=== PATIENT | male | born 1945 | race Caucasian/White ===

== ENCOUNTER → 2017-07-11 | Outpatient (CLI) | payer MEDICARE, BC ==
[2015-12-21 10:31] VITALS: BP 102/52
[~2017-07-11] MED LIST: AMOX1TAB11 PO; ASPI-39 PO; ASPI325T11 PO; CARV25TA2 PO; CARV3.122 PO; CETI10CA PO; CLOP75TA PO; FURO40TA4 PO; GABA-586 PO; HYDR-2762 PO; LISI-334 PO; LISI10TA2 PO; LOVA40TA2 PO; PANT40TA5 PO; PRED-220 PO; PRED5TAB PO; RANI150T6 PO; hydrocodone
--- NOTE | 2017-07-11 11:18 | CARD ---
APPROVED REPORT EXAM: Two-dimensional and M-mode echocardiogram with Doppler and color Doppler. Other Information Quality : Average Rhythm : Pacemaker INDICATION Cardiomyopathy Congestive Heart Failure 2D DIMENSIONS RVDd3.1 (2.9-3.5cm)Left Atrium(2D)5.0 (1.6-4.0cm) IVSd0.9 (0.7-1.1cm)Aortic Root(2D)3.3 (2.0-3.7cm) LVDd7.0 (3.9-5.9cm)LVOT Diameter2.3 (1.8-2.4cm) PWd0.9 (0.7-1.1cm)LVDs5.9 (2.5-4.0cm) SV85.2 mlLVEF(%)23.1 (>50%) Aortic Valve AoV Peak Juan.87.3cm/sAoV VTI17.9cm AO Peak GR.3.0mmHgLVOT Peak Juan.76.6cm/s LVOT VTI 15.71cmAO Mean GR.2mmHg HORACIO (VMAX)3.03xc3BUJ (VTI)3.58cm2 Mitral Valve MV E Hgtifkcf18.5cm/sMV DECEL UKNP735bc MV A Jpvpcpux93.7cm/sMV KDF45nz E/A Ratio0.9MV A Hmzzmwtf149hd MVA (PHT)3.10cm2 TDI E/Lateral E'16.0E/Medial E'17.5 Pulmonary Valve PV Peak Sreeotjp34.9cm/sPV Peak Grad.3mmHg RVOT VTI12.7cm Tricuspid Valve TR P. Anhryknf158kw/sRAP NXCGTGAR3qjIp TR Peak Gr.17hvGzUGYR59atLi Pulmonary Vein S1 Ycecthxy04.8cm/sD2 Iirtrwvy48.8cm/s LEFT VENTRICLE The Left Ventricle is moderately dilated. There is normal left ventricular wall thickness. Left ventr icle systolic function is severely impaired. The Ejection Fraction is 20-25%. Severe global hypokines is with predominant inferior wall hypokinesis. Tissue Doppler imaging reveals moderate left ventricul ar diastolic dysfunction. There is no ventricular septal defect visualized. RIGHT VENTRICLE The right ventricle is normal size. The right ventricular systolic function is normal. There is a pac emaker/ ICD lead seen in the right ventricle and atrium. ATRIA The left atrium is severely dilated. The right atrium size is normal. The interatrial septum is intac t with no evidence for an atrial septal defect or patent foramen ovale as noted on 2-D or Doppler erin ging. AORTIC VALVE Not well visualized. Doppler and Color Flow revealed no significant aortic regurgitation. There is no significant aortic valvular stenosis. MITRAL VALVE The mitral valve leaflets are thickened. There is no mitral valve stenosis. Doppler and Color Flow re vealed mild mitral regurgitation. TRICUSPID VALVE The tricuspid valve is normal in structure and function. Doppler and Color Flow revealed mild tricusp id regurgitation. The PA pressure was estimated at 33 mmHg. There is no tricuspid valve stenosis. PULMONIC VALVE Not well visualized. Doppler and Color Flow revealed no pulmonic valvular regurgitation. There is no pulmonic valvular stenosis. GREAT VESSELS The aortic root is normal in size. Normal pulmonary venous flow (Doppler). The IVC is normal in size and collapses >50% with inspiration. PERICARDIAL EFFUSION There is no evidence of significant pericardial effusion. Critical Notification Critical Value: No <Conclusion> The Left Ventricle is moderately dilated. Left ventricle systolic function is severely impaired. The Ejection Fraction is 20-25%. Severe global hypokinesis with predominant inferior wall hypokinesis. There is a pacemaker/ ICD lead seen in the right ventricle and atrium.
== END | disposition home or self-care (01) ==
LOC: ECHO 07:32
PROVIDERS: ATTEND Internal Medicine Cardiovascular Disease
DX: I08.1 Rheumatic disorders of both mitral and tricuspid valves (principal); I50.22 Chronic systolic (congestive) heart failure; Z95.0 Presence of cardiac pacemaker
CPT/HCPCS: 93306

== ENCOUNTER → 2017-10-12 | Outpatient (CLI) | payer MEDICARE, BC ==
[2015-12-21 10:31] VITALS: BP 102/52
--- NOTE | 2017-10-12 13:22 | RAD ---
Examination: CT chest without contrast History: History of pulmonary infiltrate Comparison: 12/16/2015 Technique: Axial CT images of the chest were performed without contrast. Coronal and sagittal reformats are performed PQRS Compliance Statement: One or more of the following individualized dose reduction techniques were utilized for this examination: 1. Automated exposure control 2. Adjustment of the mA and/or kV according to patient size 3. Use of iterative reconstruction technique Findings: The visualized thyroid gland grossly appears unremarkable. The central airways are patent. Mild cardiomegaly identified. Diffuse coronary artery calcifications identified. Few prominent mediastinal lymph nodes are identified with the largest measuring 2.1 cm in the pretracheal region. Severe emphysematous is identified in the bilateral lungs. Large bulla identified in the apical lungs right greater than left, similar to prior exam. Interval decrease in patchy peripheral prominent interstitial lung markings with some residual reticular interstitial lung markings identified in the left lingula. There is a new 9 mm nodule identified along the right minor fissure. The noncontrasted liver, left adrenal grossly appears unremarkable. There is a 1.6 cm nodule identified in the right adrenal gland measuring 16 Hounsfield units grossly similar to prior exam. Moderate degenerative changes thoracic spine. Impression: 1. Severe emphysematous changes bilateral lungs with large bullae identified in the right and left apical lungs again identified. 2. 9 mm nodule identified in the right lung along the right minor fissure is new compared to prior exam. Follow-up per Fleischner sensitive guidelines with a follow-up CT in 3 months. 3. Improved reticular interstitial lung markings identified in the bilateral lungs. 4. 1.6 cm right adrenal nodule similar to prior exam.
== END | disposition home or self-care (01) ==
LOC: CT 15:39
PROVIDERS: ATTEND Internal Medicine Pulmonary Disease
DX: J43.8 Other emphysema (principal); I51.7 Cardiomegaly; I25.10 Atherosclerotic heart disease of native coronary artery without angina pectoris; R23.8 Other skin changes
CPT/HCPCS: 71250

== ENCOUNTER → 2018-02-05 | Outpatient (CLI) | payer MEDICARE, BC | END | disposition home or self-care (01) | LOC: CT 10:42 | DX: R91.1 Solitary pulmonary nodule (principal); I70.8 Atherosclerosis of other arteries | CPT/HCPCS: 71250 ==

== ENCOUNTER 2018-07-07 18:40 | Inpatient (IN) | payer MEDICARE, BC ==
[~2018-07-07] VITALS: Ht 170.2 cm; Wt 96.7 kg
[~2018-07-07 18:40] MED LIST changes: +RANI150T21 PO; -RANI150T6 PO
[2018-07-07] MEDS ORDERED: methylPREDNISolone SOD SUCC PF 125 MG/2 ML VIAL. IV ONE (19:15)
[2018-07-07] MEDS ORDERED: IV NORMAL SALINE 1000ML BAG 1,000 ML IV ONE (19:15)
[2018-07-07] MEDS ORDERED: IPRATRPIUM/ALBUTEROL 0.5/2.5MG 3 ML NEBU. NEB ONE (19:15)
[2018-07-07 19:19] LABS: BASO % 0 % (0-3); EOS % 0 % (0-3); HEMATOCRIT 37.2 % (39.0-53.0); HEMOGLOBIN 12.3 g/dL (13.0-17.5); LYMPH # 0.5 x10^3/uL (1.0-4.8); LYMPH % 5 % (24-48); MEAN CORPUSCULAR HEMOGLOBIN 31 pg (25-35); MEAN CORPUSCULAR HGB CONC 33 g/dL (31-37); MEAN CORPUSCULAR VOLUME 93 fL (79-100); MONO # 0.9 x10^3/uL (0.0-1.1); MONO % 9 % (0-9); NEUT # 8.7 x10^3uL (1.8-7.7); NEUT % 86 % (31-73); PLATELET COUNT 142 x10^3/uL (140-400); RED BLOOD COUNT 4.01 x10^6/uL (4.30-5.70); RED CELL DISTRIBUTION WIDTH 14.8 % (11.5-14.5); WHITE BLOOD COUNT 10.2 x10^3/uL (4.0-11.0)
[2018-07-07 19:33] LABS: CALCIUM 8.3 mg/dL (8.5-10.1); CREATININE 1.3 mg/dL (0.7-1.3); POTASSIUM 4.1 mmol/L (3.5-5.1)
[2018-07-07 19:38] LABS: % BANDS 27 % (0-9); % LYMPHS 8 % (24-48); % MONOS 8 % (0-10); % SEGS 57 % (35-66)
[2018-07-07 19:39] LABS: ALBUMIN 3.2 g/dL (3.4-5.0); ALBUMIN/GLOBULIN RATIO 0.8 (1.0-1.7); TOTAL PROTEIN 7.3 g/dL (6.4-8.2)
[2018-07-07 19:42] LABS: PLT ESTIMATE ADEQUATE (ADEQUATE); TOXIC GRANULATION SLIGHT
[2018-07-07 20:31] LABS: INFLUENZA A PATIENT NEGATIVE (NEGATIVE); INFLUENZA B PATIENT NEGATIVE (NEGATIVE)
--- NOTE | 2018-07-07 20:33 | RAD ---
EXAM: CHEST 1 VIEW History: Cough, shortness of breath COMPARISON: 12/19/2015 TECHNIQUE: Single portable radiograph of the chest FINDINGS: Low lung volumes and technique accentuates heart size and pulmonary vascularity. Mild cardiomegaly. Left-sided cardiac pacer AICD is identified. Severe emphysematous changes identified in the lungs with the probable large bleb/emphysematous bulla identified in the right upper lobe of the lung. Mild prominent appearing interstitial lung markings similar to prior exam. IMPRESSION: 1. Severe emphysematous changes identified in the lungs. 2. Cardiomegaly with mild prominent appearing bilateral markings likely chronic interstitial changes or congestive changes. Electronically signed by: Carmelo Gupta MD (07/07/2018 8:30 PM) [facility]
--- NOTE | 2018-07-07 20:37 | PHYS DOC ---
Past Medical History Past Medical History: Arrhythmia, CAD, COPD, High Cholesterol Additional Past Medical Histor: shingles Past Surgical History: Coronary Bypass Surgery, Pacemaker Additional Past Surgical Histo: pacemaker Alcohol Use: None Drug Use: None Adult General Chief Complaint Chief Complaint: SHORTNESS OF BREATH HPI HPI 72-year-old male with end-stage COPD and multiple other medical problems presents with several day history of progressive shortness of breath, dyspnea on exertion and a productive cough. He has had some subjective fevers at home. He denies any hemoptysis. He states he feel like he has a sinus infection and that he doesn't want to be treated with Z-Kenrick. He states that just never works. He denies any chest pain. He states the cough has been productive of yellow phlegm. He has medication for his COPD at home but this has not been working.[] Review of Systems Review of Systems Constitutional: Denies fever or chills [] Eyes: Denies change in visual acuity, redness, or eye pain [] HENT: Denies nasal congestion or sore throat [] Respiratory: Per history of present illness[] Cardiovascular: No additional information not addressed in HPI [] GI: Denies abdominal pain, nausea, vomiting, bloody stools or diarrhea [] : Denies dysuria or hematuria [] Musculoskeletal: Denies back pain or joint pain [] Integument: Denies rash or skin lesions [] Neurologic: Denies headache, focal weakness or sensory changes [] Endocrine: Denies polyuria or polydipsia [] All other systems were reviewed and found to be within normal limits, except as documented in this note. Current Medications Current Medications Current Medications Medications (Trade) Dose Ordered Sig/Minerva Start Time Stop Time Status Last Admin Dose Admin Acetaminophen (Tylenol) 650 mg PRN Q4HRS PRN 07/07/18 20:45 07/08/18 20:44 UNV Albuterol/ Ipratropium (Duoneb) 3 ml RTQID 07/08/18 08:00 07/09/18 07:59 UNV Furosemide (Lasix) 80 mg 1X ONCE 07/07/18 21:00 07/07/18 21:01 Levofloxacin/ Dextrose 150 ml @ 100 mls/hr 1X ONCE 07/07/18 21:00 07/07/18 22:29 Methylprednisolone Sodium Succinate (SOLU-Medrol 125MG VIAL) 125 mg 1X ONCE 07/07/18 19:15 07/07/18 19:16 DC 07/07/18 19:45 125 MG Sodium Chloride 1,000 ml @ 1,000 mls/hr 1X ONCE 07/07/18 19:15 07/07/18 20:14 DC 07/07/18 19:45 1,000 MLS/HR Allergies Allergies Allergies Coded Allergies Type Severity Reaction Last Updated Verified No Known Drug Allergies 12/21/13 No Physical Exam Physical Exam Constitutional: Elderly, acute on chronically ill-appearing male. [] HENT: Normocephalic, atraumatic, bilateral external ears normal, oropharynx moist, no oral exudates, nose normal. [] Eyes: PERRLA, EOMI, conjunctiva normal, no discharge. [] Neck: Normal range of motion, no tenderness, supple, no stridor. [] Cardiovascular:Heart rate regular rhythm, no murmur [] Lungs & Thorax: Scattered wheezes throughout both lungs bibasilar rales[] Abdomen: Bowel sounds normal, soft, no tenderness, no masses, no pulsatile masses. [] Skin: Warm, dry, no erythema, no rash. [] Back: No tenderness, no CVA tenderness. [] Extremities: No tenderness, no cyanosis, no clubbing, ROM intact, no edema. [] Neurologic: Alert and oriented X 3, normal motor function, normal sensory function, no focal deficits noted. [] Psychologic: Depressed affect Current Patient Data Vital Signs Vital Signs Date Time Temp Pulse Resp B/P (MAP) Pulse Ox O2 Delivery O2 Flow Rate FiO2 07/07/18 19:23 88 Nasal Cannula 3.0 07/07/18 19:00 98.6 77 22 136/64 (88) 98.6 Lab Values Laboratory Tests Test 07/07/18 19:05 07/07/18 20:00 White Blood Count 10.2 x10^3/uL (4.0-11.0) Red Blood Count 4.01 x10^6/uL (4.30-5.70) L Hemoglobin 12.3 g/dL (13.0-17.5) L Hematocrit 37.2 % (39.0-53.0) L Mean Corpuscular Volume 93 fL (79-100) Mean Corpuscular Hemoglobin 31 pg (25-35) Mean Corpuscular Hemoglobin Concent 33 g/dL (31-37) Red Cell Distribution Width 14.8 % (11.5-14.5) H Platelet Count 142 x10^3/uL (140-400) Neutrophils (%) (Auto) 86 % (31-73) H Lymphocytes (%) (Auto) 5 % (24-48) L Monocytes (%) (Auto) 9 % (0-9) Eosinophils (%) (Auto) 0 % (0-3) Basophils (%) (Auto) 0 % (0-3) Neutrophils # (Auto) 8.7 x10^3uL (1.8-7.7) H Lymphocytes # (Auto) 0.5 x10^3/uL (1.0-4.8) L Monocytes # (Auto) 0.9 x10^3/uL (0.0-1.1) Eosinophils # (Auto) 0.0 x10^3/uL (0.0-0.7) Basophils # (Auto) 0.0 x10^3/uL (0.0-0.2) Segmented Neutrophils % 57 % (35-66) Band Neutrophils % 27 % (0-9) H Lymphocytes % 8 % (24-48) L Monocytes % 8 % (0-10) Toxic Granulation Slight Platelet Estimate Adequate (ADEQUATE) Sodium Level 136 mmol/L (136-145) Potassium Level 4.1 mmol/L (3.5-5.1) Chloride Level 101 mmol/L (98-107) Carbon Dioxide Level 34 mmol/L (21-32) H Anion Gap 1 (6-14) L Blood Urea Nitrogen 22 mg/dL (8-26) Creatinine 1.3 mg/dL (0.7-1.3) Estimated GFR (Cockcroft-Gault) 54.0 BUN/Creatinine Ratio 17 (6-20) Glucose Level 133 mg/dL (70-99) H Lactic Acid Level 1.7 mmol/L (0.4-2.0) Calcium Level 8.3 mg/dL (8.5-10.1) L Total Bilirubin 1.0 mg/dL (0.2-1.0) Aspartate Amino Transferase (AST) 13 U/L (15-37) L Alanine Aminotransferase (ALT) 13 U/L (16-63) L Alkaline Phosphatase 77 U/L (46-116) Troponin I Quantitative 0.041 ng/mL (0.000-0.055) FY-Iwc-N-Type Natriuretic Peptide 3452 pg/mL (0-124) H Total Protein 7.3 g/dL (6.4-8.2) Albumin 3.2 g/dL (3.4-5.0) L Albumin/Globulin Ratio 0.8 (1.0-1.7) L Influenza Type A Antigen Negative (NEGATIVE) Influenza Type B Antigen Negative (NEGATIVE) Laboratory Tests 07/07/18 19:05 Laboratory Tests 07/07/18 19:05 EKG EKG [EKG: Normal sinus rhythm with an incomplete right bundle branch block no obvious ischemic ST-T changes] Radiology/Procedures Radiology/Procedures [] Impressions: PROCEDURE: CHEST AP ONLY EXAM: CHEST 1 VIEW History: Cough, shortness of breath COMPARISON: 12/19/2015 TECHNIQUE: Single portable radiograph of the chest FINDINGS: Low lung volumes and technique accentuates heart size and pulmonary vascularity. Mild cardiomegaly. Left-sided cardiac pacer AICD is identified. Severe emphysematous changes identified in the lungs with the probable large bleb/emphysematous bulla identified in the right upper lobe of the lung. Mild prominent appearing interstitial lung markings similar to prior exam. IMPRESSION: 1. Severe emphysematous changes identified in the lungs. 2. Cardiomegaly with mild prominent appearing bilateral markings likely chronic interstitial changes or congestive changes. Course & Med Decision Making Course & Med Decision Making Pertinent Labs and Imaging studies reviewed. (See chart for details) [ED course: Evaluation reveals a 72-year-old chronically ill-appearing male with acute on chronic respiratory findings. Initially, I treated him for COPD exacerbation with IV steroids and ajza-qf-efvy DuoNeb which did help with the wheezing however his chest x-ray seemed more consistent with congestive heart failure and that along with a BNP of greater than 3000 I treated him with 80 mg of Lasix IV. I also treated him with Levaquin 750 mg IV after blood cultures and lactic acid were drawn. I spoke with Dr. Magallon who agreed to accept the patient for admission. We will consult pulmonary as well as cardiology to help in the management of this patient.] CRITICAL CARE: Time spent was 35 minutes. This includes medical management, evaluation, reevaluation, discussion with consultants and family. Critical Care does NOT include time spent on separately billed procedures. Dragon Disclaimer Dragon Disclaimer This electronic medical record was generated, in whole or in part, using a voice recognition dictation system. Departure Departure Impression: Primary Impression: COPD with exacerbation Additional Impression: CHF exacerbation Disposition: 09 ADMITTED INPATIENT Admitting Physician: Leslee Murdock Condition: GUARDED Referrals: JIMMIE BAUER Jr, MD (PCP) Problem Qualifiers Additional Impression: CHF exacerbation Heart failure type: unspecified Qualified Codes: I50.9 - Heart failure, unspecified THEA CONLEY DO Jul 07, 2018 20:37
[2018-07-07] MEDS ORDERED: ACETAMINOPHEN 325 MG TABLET. PO PRN (20:45)
[2018-07-07] MEDS ORDERED: FUROSEMIDE 40 MG/4 ML VIAL. IVP ONE (21:00)
[2018-07-07 23:00] VITALS: BP 126/62
[2018-07-08 03:00] VITALS: BP 112/54
[2018-07-08 06:03] LABS: BASO % 0 % (0-3); EOS % 0 % (0-3); HEMATOCRIT 37.1 % (39.0-53.0); HEMOGLOBIN 12.3 g/dL (13.0-17.5); LYMPH # 0.4 x10^3/uL (1.0-4.8); LYMPH % 6 % (24-48); MEAN CORPUSCULAR HEMOGLOBIN 31 pg (25-35); MEAN CORPUSCULAR HGB CONC 33 g/dL (31-37); MEAN CORPUSCULAR VOLUME 92 fL (79-100); MONO # 0.3 x10^3/uL (0.0-1.1); MONO % 5 % (0-9); NEUT # 5.9 x10^3uL (1.8-7.7); NEUT % 89 % (31-73); PLATELET COUNT 135 x10^3/uL (140-400); RED BLOOD COUNT 4.02 x10^6/uL (4.30-5.70); RED CELL DISTRIBUTION WIDTH 14.7 % (11.5-14.5); WHITE BLOOD COUNT 6.6 x10^3/uL (4.0-11.0)
[2018-07-08 06:24] LABS: ALBUMIN 2.8 g/dL (3.4-5.0); ALBUMIN/GLOBULIN RATIO 0.6 (1.0-1.7); CALCIUM 8.4 mg/dL (8.5-10.1); CREATININE 1.2 mg/dL (0.7-1.3); GFR 59.2; POTASSIUM 3.6 mmol/L (3.5-5.1); TOTAL BILIRUBIN 0.7 mg/dL (0.2-1.0); TOTAL PROTEIN 7.2 g/dL (6.4-8.2)
[2018-07-08 07:00] VITALS: BP_SYST 123
[2018-07-08] MEDS ORDERED: IPRATRPIUM/ALBUTEROL 0.5/2.5MG 3 ML NEBU. NEB SCH (08:00)
[2018-07-08] MEDS ORDERED: DOCUSATE SODIUM 100 MG CAPSULE. PO PRN (09:00)
[2018-07-08] MEDS ORDERED: traMADol 50 MG TABLET PO PRN (09:00)
[2018-07-08] MEDS ORDERED: ALBUTEROL SULFATE 2.5 MG/3 ML NEBU. NEB PRN (09:00)
[2018-07-08] MEDS ORDERED: MORPHINE SULFATE 2 MG/ML VIAL. IV PRN (09:00)
[2018-07-08] MEDS ORDERED: ACETAMINOPHEN 325 MG TABLET. PO PRN (09:00)
[2018-07-08] MEDS ORDERED: ONDANSETRON PF 4 MG/2 ML VIAL. IV PRN (09:00)
--- NOTE | 2018-07-08 09:20 | EKG ---
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
[2018-07-08 11:01] VITALS: BP 125/62
[2018-07-08] MEDS: FLUTICASONE 50MCG/NASAL SPRAY 16GM BOTTLE. NS SCH (11:11)
[2018-07-08] MEDS: predniSONE 20 MG TABLET PO SCH (11:11)
[2018-07-08] MEDS: IPRATRPIUM/ALBUTEROL 0.5/2.5MG 3 ML NEBU. NEB SCH ×3 (12:25→19:37)
--- NOTE | 2018-07-08 12:42 | PDOC1 ---
History and Physical Date of Admission Date of Admission 07/08/18 Identification/Chief Complaint Chief Complaint cough, sob Source Source: Chart review, Patient History of Present Illness History of Present Illness HPI 72-year-old male with end-stage COPD and multiple other medical problems presents with cough and sob for 2 days. pt quit smoking for 30ys, home o2 NC 2L, has copd, but not taking any meds since he was prescribed symbicort which will cost him >100bucks per month and he has not decided to pay yet. pt started to cough with yellow sputum from Sunday, has sob, denies fever and chills, no chest pain. Came to ER, now need NC 3l. He said he started to feel nasal drip first and then tried to cough it out. pt feels better today altho still cough a lot in front of me, wants go home. got lasix iv x1 in ER. Past Medical History Cardiovascular: CAD, CHF, HTN, Hyperlipidemia Pulmonary: COPD CENTRAL NERVOUS SYSTEM: Other GI: Diverticulosis, GERD Infectious disease: Other Renal/: Prostate Ca. Past Surgical History Past Surgical History: Pacemaker, CABG, Other Family History Family History: Hypertension Social History Smoke: Quit ALCOHOL: none Drugs: None Current Problem List Problem List Problems Medical Problems: (1) CHF exacerbation Status: Acute (2) COPD with exacerbation Status: Acute Current Medications Current Medications Current Medications Medications (Trade) Dose Ordered Sig/Minerva Start Time Stop Time Status Last Admin Dose Admin Acetaminophen (Tylenol) 650 mg PRN Q6HRS PRN 07/08/18 09:00 Albuterol Sulfate (Ventolin Neb Soln) 2.5 mg PRN Q2HR PRN 07/08/18 09:00 Albuterol/ Ipratropium (Duoneb) 3 ml RTQID 07/08/18 12:00 07/08/18 12:25 3 ML Docusate Sodium (Colace) 100 mg PRN DAILY PRN 07/08/18 09:00 Fluticasone Propionate (Flonase) 2 spray DAILY 07/08/18 09:00 07/08/18 11:11 2 SPRAY Furosemide (Lasix) 80 mg 1X ONCE 07/07/18 21:00 07/07/18 21:01 DC 07/07/18 21:42 80 MG Guaifenesin (Mucinex) 600 mg BID 07/08/18 09:00 07/08/18 11:11 600 MG Levofloxacin/ Dextrose 100 ml @ 100 mls/hr QHS 07/08/18 21:00 Methylprednisolone Sodium Succinate (SOLU-Medrol 125MG VIAL) 125 mg 1X ONCE 07/07/18 19:15 07/07/18 19:16 DC 07/07/18 19:45 125 MG Morphine Sulfate (Morphine Sulfate) 2 mg PRN Q2HR PRN 07/08/18 09:00 Ondansetron HCl (Zofran) 4 mg PRN Q6HRS PRN 07/08/18 09:00 Prednisone (Prednisone) 40 mg DAILY 07/08/18 09:00 07/08/18 11:11 40 MG Sodium Chloride 1,000 ml @ 1,000 mls/hr 1X ONCE 07/07/18 19:15 07/07/18 20:14 DC 07/07/18 19:45 1,000 MLS/HR Tramadol HCl (Ultram) 50 mg PRN Q6HRS PRN 07/08/18 09:00 Allergies Allergies Allergies Coded Allergies Type Severity Reaction Last Updated Verified No Known Drug Allergies 12/21/13 No ROS Review of System CONSTITUTIONAL: No fever or chills EYES: No recent changes SKIN: No rash or itching CARDIOVASCULAR: No chest pain, syncope, palpitations, or edema RESPIRATORY: No SOB or cough GASTROINTESTINAL: No nausea, vomiting or abdominal pain NEUROLOGICAL: No headaches or weakness ENDOCRINE: No cold or heat intolerance GENITOURINARY: No urgency or frequency of urination MUSCULOSKELETAL: No back pain or joint pain LYMPHATICS: No enlarged lymph nodes PSYCHIATRIC: No anxiety or depression Physical Exam Physical Exam GEN.: No apparent distress. Alert and oriented. HEENT: Head is normocephalic, atraumatic NECK: Supple. LUNGS: BL moderate decreased bs with mild wheezing, tightness. HEART: RRR, S1, S2 present. Peripheral pulses intact ABDOMEN: Soft, nontender. Positive bowel sounds. EXTREMITIES: Without any cyanosis. no edema. NEUROLOGIC: Normal speech, normal tone PSYCHIATRIC: Normal affect, normal mood. SKIN: No ulcerations Vitals Vitals Vital Signs Date Time Temp Pulse Resp B/P (MAP) Pulse Ox O2 Delivery O2 Flow Rate FiO2 07/08/18 12:25 96 Nasal Cannula 2.0 07/08/18 11:01 97.8 65 20 125/62 (83) 97.8 Labs Labs Laboratory Tests Test 07/07/18 19:05 07/07/18 20:00 07/07/18 23:25 07/08/18 05:41 White Blood Count 10.2 x10^3/uL (4.0-11.0) 6.6 x10^3/uL (4.0-11.0) Red Blood Count 4.01 x10^6/uL (4.30-5.70) 4.02 x10^6/uL (4.30-5.70) Hemoglobin 12.3 g/dL (13.0-17.5) 12.3 g/dL (13.0-17.5) Hematocrit 37.2 % (39.0-53.0) 37.1 % (39.0-53.0) Mean Corpuscular Volume 93 fL (79-100) 92 fL (79-100) Mean Corpuscular Hemoglobin 31 pg (25-35) 31 pg (25-35) Mean Corpuscular Hemoglobin Concent 33 g/dL (31-37) 33 g/dL (31-37) Red Cell Distribution Width 14.8 % (11.5-14.5) 14.7 % (11.5-14.5) Platelet Count 142 x10^3/uL (140-400) 135 x10^3/uL (140-400) Neutrophils (%) (Auto) 86 % (31-73) 89 % (31-73) Lymphocytes (%) (Auto) 5 % (24-48) 6 % (24-48) Monocytes (%) (Auto) 9 % (0-9) 5 % (0-9) Eosinophils (%) (Auto) 0 % (0-3) 0 % (0-3) Basophils (%) (Auto) 0 % (0-3) 0 % (0-3) Neutrophils # (Auto) 8.7 x10^3uL (1.8-7.7) 5.9 x10^3uL (1.8-7.7) Lymphocytes # (Auto) 0.5 x10^3/uL (1.0-4.8) 0.4 x10^3/uL (1.0-4.8) Monocytes # (Auto) 0.9 x10^3/uL (0.0-1.1) 0.3 x10^3/uL (0.0-1.1) Eosinophils # (Auto) 0.0 x10^3/uL (0.0-0.7) 0.0 x10^3/uL (0.0-0.7) Basophils # (Auto) 0.0 x10^3/uL (0.0-0.2) 0.0 x10^3/uL (0.0-0.2) Segmented Neutrophils % 57 % (35-66) Band Neutrophils % 27 % (0-9) Lymphocytes % 8 % (24-48) Monocytes % 8 % (0-10) Toxic Granulation Slight Platelet Estimate Adequate (ADEQUATE) Sodium Level 136 mmol/L (136-145) 139 mmol/L (136-145) Potassium Level 4.1 mmol/L (3.5-5.1) 3.6 mmol/L (3.5-5.1) Chloride Level 101 mmol/L (98-107) 100 mmol/L (98-107) Carbon Dioxide Level 34 mmol/L (21-32) 35 mmol/L (21-32) Anion Gap 1 (6-14) 4 (6-14) Blood Urea Nitrogen 22 mg/dL (8-26) 23 mg/dL (8-26) Creatinine 1.3 mg/dL (0.7-1.3) 1.2 mg/dL (0.7-1.3) Estimated GFR (Cockcroft-Gault) 54.0 59.2 BUN/Creatinine Ratio 17 (6-20) 19 (6-20) Glucose Level 133 mg/dL (70-99) 210 mg/dL (70-99) Lactic Acid Level 1.7 mmol/L (0.4-2.0) 1.5 mmol/L (0.4-2.0) Calcium Level 8.3 mg/dL (8.5-10.1) 8.4 mg/dL (8.5-10.1) Total Bilirubin 1.0 mg/dL (0.2-1.0) 0.7 mg/dL (0.2-1.0) Aspartate Amino Transf (AST/SGOT) 13 U/L (15-37) 12 U/L (15-37) Alanine Aminotransferase (ALT/SGPT) 13 U/L (16-63) 14 U/L (16-63) Alkaline Phosphatase 77 U/L (46-116) 79 U/L (46-116) Troponin I Quantitative 0.041 ng/mL (0.000-0.055) 0.036 ng/mL (0.000-0.055) WA-Swj-G-Type Natriuretic Peptide 3452 pg/mL (0-124) Total Protein 7.3 g/dL (6.4-8.2) 7.2 g/dL (6.4-8.2) Albumin 3.2 g/dL (3.4-5.0) 2.8 g/dL (3.4-5.0) Albumin/Globulin Ratio 0.8 (1.0-1.7) 0.6 (1.0-1.7) Influenza Type A Antigen Negative (NEGATIVE) Influenza Type B Antigen Negative (NEGATIVE) Laboratory Tests Test 07/07/18 19:05 07/07/18 20:00 07/07/18 23:25 07/08/18 05:41 White Blood Count 10.2 x10^3/uL (4.0-11.0) 6.6 x10^3/uL (4.0-11.0) Red Blood Count 4.01 x10^6/uL (4.30-5.70) 4.02 x10^6/uL (4.30-5.70) Hemoglobin 12.3 g/dL (13.0-17.5) 12.3 g/dL (13.0-17.5) Hematocrit 37.2 % (39.0-53.0) 37.1 % (39.0-53.0) Mean Corpuscular Volume 93 fL (79-100) 92 fL (79-100) Mean Corpuscular Hemoglobin 31 pg (25-35) 31 pg (25-35) Mean Corpuscular Hemoglobin Concent 33 g/dL (31-37) 33 g/dL (31-37) Red Cell Distribution Width 14.8 % (11.5-14.5) 14.7 % (11.5-14.5) Platelet Count 142 x10^3/uL (140-400) 135 x10^3/uL (140-400) Neutrophils (%) (Auto) 86 % (31-73) 89 % (31-73) Lymphocytes (%) (Auto) 5 % (24-48) 6 % (24-48) Monocytes (%) (Auto) 9 % (0-9) 5 % (0-9) Eosinophils (%) (Auto) 0 % (0-3) 0 % (0-3) Basophils (%) (Auto) 0 % (0-3) 0 % (0-3) Neutrophils # (Auto) 8.7 x10^3uL (1.8-7.7) 5.9 x10^3uL (1.8-7.7) Lymphocytes # (Auto) 0.5 x10^3/uL (1.0-4.8) 0.4 x10^3/uL (1.0-4.8) Monocytes # (Auto) 0.9 x10^3/uL (0.0-1.1) 0.3 x10^3/uL (0.0-1.1) Eosinophils # (Auto) 0.0 x10^3/uL (0.0-0.7) 0.0 x10^3/uL (0.0-0.7) Basophils # (Auto) 0.0 x10^3/uL (0.0-0.2) 0.0 x10^3/uL (0.0-0.2) Segmented Neutrophils % 57 % (35-66) Band Neutrophils % 27 % (0-9) Lymphocytes % 8 % (24-48) Monocytes % 8 % (0-10) Toxic Granulation Slight Platelet Estimate Adequate (ADEQUATE) Sodium Level 136 mmol/L (136-145) 139 mmol/L (136-145) Potassium Level 4.1 mmol/L (3.5-5.1) 3.6 mmol/L (3.5-5.1) Chloride Level 101 mmol/L (98-107) 100 mmol/L (98-107) Carbon Dioxide Level 34 mmol/L (21-32) 35 mmol/L (21-32) Anion Gap 1 (6-14) 4 (6-14) Blood Urea Nitrogen 22 mg/dL (8-26) 23 mg/dL (8-26) Creatinine 1.3 mg/dL (0.7-1.3) 1.2 mg/dL (0.7-1.3) Estimated GFR (Cockcroft-Gault) 54.0 59.2 BUN/Creatinine Ratio 17 (6-20) 19 (6-20) Glucose Level 133 mg/dL (70-99) 210 mg/dL (70-99) Lactic Acid Level 1.7 mmol/L (0.4-2.0) 1.5 mmol/L (0.4-2.0) Calcium Level 8.3 mg/dL (8.5-10.1) 8.4 mg/dL (8.5-10.1) Total Bilirubin 1.0 mg/dL (0.2-1.0) 0.7 mg/dL (0.2-1.0) Aspartate Amino Transf (AST/SGOT) 13 U/L (15-37) 12 U/L (15-37) Alanine Aminotransferase (ALT/SGPT) 13 U/L (16-63) 14 U/L (16-63) Alkaline Phosphatase 77 U/L (46-116) 79 U/L (46-116) Troponin I Quantitative 0.041 ng/mL (0.000-0.055) 0.036 ng/mL (0.000-0.055) LM-Vch-Q-Type Natriuretic Peptide 3452 pg/mL (0-124) Total Protein 7.3 g/dL (6.4-8.2) 7.2 g/dL (6.4-8.2) Albumin 3.2 g/dL (3.4-5.0) 2.8 g/dL (3.4-5.0) Albumin/Globulin Ratio 0.8 (1.0-1.7) 0.6 (1.0-1.7) Influenza Type A Antigen Negative (NEGATIVE) Influenza Type B Antigen Negative (NEGATIVE) VTE Prophylaxis Ordered VTE Prophylaxis Devices: Yes VTE Pharmacological Prophylaxi: Yes Assessment/Plan Assessment/Plan acute on chronic hypoxic resp failure copd exacerbation Bronchitis h/o CAD with stents, CABG h/o CHF, systolic HTN nasal drip PPM/ICD mild malnutrition plan: pulm, card consult pending NC as needed add levaqin daily duoneb, albuterol prn, prednisone 40mg daily gi, dvt ppx need verify home meds, cont cough meds add flonase spray FERNANDO BELLO MD Jul 08, 2018 12:42
[2018-07-08] MEDS ORDERED: CLOPIDOGREL BISULFATE 75 MG TABLET PO SCH (13:00)
[2018-07-08] MEDS ORDERED: ASPIRIN ENTERIC COATED 325 MG TABLET.DR. PO SCH (13:00)
[2018-07-08] MEDS: GABAPENTIN 300 MG CAPSULE. PO SCH ×3 (14:54→20:58)
[2018-07-08] MEDS: FUROSEMIDE 40 MG TABLET. PO SCH (14:54)
[2018-07-08] MEDS: ENOXAPARIN 40 MG/0.4 ML SYRINGE. SQ SCH (14:54)
--- NOTE | 2018-07-08 14:55 | PDOC2 ---
CONSULT Date of Consult Date of Consult DATE: 07/08/18 TIME: 14:48 Reason for Consult Reason for Consult: Acute on chronic systolic heart failure Referring Physician Referring Physician: Identification/Chief Complaint Chief Complaint Shortness of breath Source Source: Patient History of Present Illness Reason for Visit: The patient is a 72-year-old male with severe COPD and a severe cardiomyopathy with his last ejection fraction being 20-25%. Patient reported increasing shortness of breath and dyspnea on exertion as well as sinus congestion with the past 3-4 days. He came to the emergency room and was treated with IV Lasix which is significantly improved his symptoms. He has also been receiving his pulmonary treatments and oxygen. He states been compliant with his medications. Chest x-ray shows severe emphysema and cardiomegaly. Troponins have been minimally elevated 0.041 and 0.036. EKG shows a sinus rhythm with V paced beats. As noted above the patient is more comfortable this morning. He denies chest pain, dizziness or lightheadedness. Past Medical History Cardiovascular: CAD, CHF, HTN, Hyperlipidemia Pulmonary: COPD CENTRAL NERVOUS SYSTEM: Other GI: Diverticulosis, GERD Musculoskeletal: Osteoarthritis, Other Infectious disease: Other Renal/: Prostate Ca. Past Surgical History Past Surgical History: Pacemaker, CABG, Other (AICD implant) Family History Family History: Hypertension Social History Quit ALCOHOL: none Drugs: None Current Problem List Problem List Problems Medical Problems: (1) CHF exacerbation Status: Acute (2) COPD with exacerbation Status: Acute Current Medications Current Medications Current Medications Sodium Chloride 1,000 ml @ 1,000 mls/hr 1X ONCE IV Last administered on at 19:45; Start 07/07/18 at 19:15; Stop 07/07/18 at 20:14; Status DC Methylprednisolone Sodium Succinate (SOLU-Medrol 125MG VIAL) 125 mg 1X ONCE IV Last administered on 07/07/18at 19:45; Start 07/07/18 at 19:15; Stop 07/07/18 at 19:16; Status DC Albuterol/ Ipratropium (Duoneb) 6 ml 1X ONCE NEB Last administered on at 19:22; Start 07/07/18 at 19:15; Stop 07/07/18 at 19:16; Status DC Furosemide (Lasix) 80 mg 1X ONCE IVP Last administered on 07/07/18at 21:42; Start 07/07/18 at 21:00; Stop 07/07/18 at 21:01; Status DC Levofloxacin/ Dextrose 150 ml @ 100 mls/hr 1X ONCE IV Last administered on 07/07/18at 21:46; Start 07/07/18 at 21:00; Stop 07/07/18 at 22:29; Status DC Acetaminophen (Tylenol) 650 mg PRN Q4HRS PRN PO FEVER; Start 07/07/18 at 20:45; Stop 07/08/18 at 20:44; Status Cancel Albuterol/ Ipratropium (Duoneb) 3 ml RTQID NEB Last administered on 07/08/18at 08 :20; Start 07/08/18 at 08:00; Stop 07/08/18 at 09:08; Status DC Acetaminophen (Tylenol) 650 mg PRN Q6HRS PRN PO FEVER; Start 07/08/18 at 09:00 Ondansetron HCl (Zofran) 4 mg PRN Q6HRS PRN IV NAUSEA/VOMITING; Start 07/08/18 at 09:00 Morphine Sulfate (Morphine Sulfate) 2 mg PRN Q2HR PRN IV MODERATE TO SEVERE PAIN; Start 07/08/18 at 09:00 Tramadol HCl (Ultram) 50 mg PRN Q6HRS PRN PO MILD TO MODERATE PAIN; Start at 09:00 Docusate Sodium (Colace) 100 mg PRN DAILY PRN PO CONSTIPATION; Start 07/08/18 at 09:00 Albuterol/ Ipratropium (Duoneb) 3 ml RTQID NEB Last administered on 07/08/18at 12 :25; Start 07/08/18 at 12:00 Albuterol Sulfate (Ventolin Neb Soln) 2.5 mg PRN Q2HR PRN NEB SHORTNESS OF BREATH; Start 07/08/18 at 09:00 Guaifenesin (Mucinex) 600 mg BID PO Last administered on 07/08/18at 11:11; Start 07/08/18 at 09:00 Prednisone (Prednisone) 40 mg DAILY PO Last administered on 07/08/18at 11:11; Start 07/08/18 at 09:00 Fluticasone Propionate (Flonase) 2 spray DAILY NS Last administered on at 11:11; Start 07/08/18 at 09:00 Levofloxacin/ Dextrose 100 ml @ 100 mls/hr Q24H IV ; Start 07/08/18 at 09:00; Stop 07/08/18 at 09:08; Status DC Levofloxacin/ Dextrose 100 ml @ 100 mls/hr QHS IV ; Start 07/08/18 at 21:00 Aspirin (Ecotrin) 325 mg DAILYWBKFT PO ; Start 07/08/18 at 13:00; Stop 07/08/18 at 13:00; Status DC Carvedilol (Coreg) 3.125 mg BIDWMEALS PO ; Start 07/08/18 at 17:00 Clopidogrel Bisulfate (Plavix) 75 mg DAILYWBKFT PO ; Start 07/08/18 at 13:00; Stop 07/08/18 at 13:00; Status DC Furosemide (Lasix) 40 mg DAILY PO ; Start 07/08/18 at 13:00 Lisinopril (Prinivil) 10 mg DAILY PO ; Start 07/09/18 at 09:00 Gabapentin (Neurontin) 300 mg QID PO ; Start 07/08/18 at 13:00 Atorvastatin Calcium (Lipitor) 10 mg QHS PO ; Start 07/08/18 at 21:00 Enoxaparin Sodium (Lovenox 40mg Syringe) 40 mg Q24H SQ ; Start 07/08/18 at 13:00 Famotidine (Pepcid) 20 mg QHS PO ; Start 07/08/18 at 21:00 Aspirin (Ecotrin) 325 mg DAILYWBKFT PO ; Start 07/09/18 at 08:00 Clopidogrel Bisulfate (Plavix) 75 mg DAILYWBKFT PO ; Start 07/09/18 at 08:00 Active Scripts Active Prednisone 5 Mg Tablet 5 Mg PO DAILY Lisinopril 10 Mg Tablet 10 Mg PO DAILY Furosemide 40 Mg Tablet 40 Mg PO DAILY Clopidogrel (Clopidogrel Bisulfate) 75 Mg Tablet 75 Mg PO DAILYWBKFT Carvedilol 3.125 Mg Tablet 3.125 Mg PO BIDWMEALS Aspirin Ec (Aspirin) 325 Mg Tablet. 325 Mg PO DAILYWBKFT Reported Lovastatin 40 Mg Tablet 1 Tab PO DAILY Neurontin (Gabapentin) 300 Mg Capsule 300 Mg PO QID Allergies Allergies: Coded Allergies: No Known Drug Allergies (Unverified , 12/21/13) ROS Respiratory: YES: Shortness of breath, SOB with excertion Physical Exam General: mild distress HEENT: Atraumatic Lungs: Other (decreased breath sounds) Heart: Regular rate Abdomen: Normal bowel sounds Vitals VITALS Vital Signs Date Time Temp Pulse Resp B/P (MAP) Pulse Ox O2 Delivery O2 Flow Rate FiO2 07/08/18 12:25 96 Nasal Cannula 2.0 07/08/18 11:01 97.8 65 20 125/62 (83) 97.8 Labs Labs Laboratory Tests Test 07/07/18 19:05 07/07/18 20:00 07/07/18 23:25 07/08/18 05:41 White Blood Count 10.2 x10^3/uL (4.0-11.0) 6.6 x10^3/uL (4.0-11.0) Red Blood Count 4.01 x10^6/uL (4.30-5.70) 4.02 x10^6/uL (4.30-5.70) Hemoglobin 12.3 g/dL (13.0-17.5) 12.3 g/dL (13.0-17.5) Hematocrit 37.2 % (39.0-53.0) 37.1 % (39.0-53.0) Mean Corpuscular Volume 93 fL (79-100) 92 fL (79-100) Mean Corpuscular Hemoglobin 31 pg (25-35) 31 pg (25-35) Mean Corpuscular Hemoglobin Concent 33 g/dL (31-37) 33 g/dL (31-37) Red Cell Distribution Width 14.8 % (11.5-14.5) 14.7 % (11.5-14.5) Platelet Count 142 x10^3/uL (140-400) 135 x10^3/uL (140-400) Neutrophils (%) (Auto) 86 % (31-73) 89 % (31-73) Lymphocytes (%) (Auto) 5 % (24-48) 6 % (24-48) Monocytes (%) (Auto) 9 % (0-9) 5 % (0-9) Eosinophils (%) (Auto) 0 % (0-3) 0 % (0-3) Basophils (%) (Auto) 0 % (0-3) 0 % (0-3) Neutrophils # (Auto) 8.7 x10^3uL (1.8-7.7) 5.9 x10^3uL (1.8-7.7) Lymphocytes # (Auto) 0.5 x10^3/uL (1.0-4.8) 0.4 x10^3/uL (1.0-4.8) Monocytes # (Auto) 0.9 x10^3/uL (0.0-1.1) 0.3 x10^3/uL (0.0-1.1) Eosinophils # (Auto) 0.0 x10^3/uL (0.0-0.7) 0.0 x10^3/uL (0.0-0.7) Basophils # (Auto) 0.0 x10^3/uL (0.0-0.2) 0.0 x10^3/uL (0.0-0.2) Segmented Neutrophils % 57 % (35-66) Band Neutrophils % 27 % (0-9) Lymphocytes % 8 % (24-48) Monocytes % 8 % (0-10) Toxic Granulation Slight Platelet Estimate Adequate (ADEQUATE) Sodium Level 136 mmol/L (136-145) 139 mmol/L (136-145) Potassium Level 4.1 mmol/L (3.5-5.1) 3.6 mmol/L (3.5-5.1) Chloride Level 101 mmol/L (98-107) 100 mmol/L (98-107) Carbon Dioxide Level 34 mmol/L (21-32) 35 mmol/L (21-32) Anion Gap 1 (6-14) 4 (6-14) Blood Urea Nitrogen 22 mg/dL (8-26) 23 mg/dL (8-26) Creatinine 1.3 mg/dL (0.7-1.3) 1.2 mg/dL (0.7-1.3) Estimated GFR (Cockcroft-Gault) 54.0 59.2 BUN/Creatinine Ratio 17 (6-20) 19 (6-20) Glucose Level 133 mg/dL (70-99) 210 mg/dL (70-99) Lactic Acid Level 1.7 mmol/L (0.4-2.0) 1.5 mmol/L (0.4-2.0) Calcium Level 8.3 mg/dL (8.5-10.1) 8.4 mg/dL (8.5-10.1) Total Bilirubin 1.0 mg/dL (0.2-1.0) 0.7 mg/dL (0.2-1.0) Aspartate Amino Transf (AST/SGOT) 13 U/L (15-37) 12 U/L (15-37) Alanine Aminotransferase (ALT/SGPT) 13 U/L (16-63) 14 U/L (16-63) Alkaline Phosphatase 77 U/L (46-116) 79 U/L (46-116) Troponin I Quantitative 0.041 ng/mL (0.000-0.055) 0.036 ng/mL (0.000-0.055) ES-Nzt-W-Type Natriuretic Peptide 3452 pg/mL (0-124) Total Protein 7.3 g/dL (6.4-8.2) 7.2 g/dL (6.4-8.2) Albumin 3.2 g/dL (3.4-5.0) 2.8 g/dL (3.4-5.0) Albumin/Globulin Ratio 0.8 (1.0-1.7) 0.6 (1.0-1.7) Influenza Type A Antigen Negative (NEGATIVE) Influenza Type B Antigen Negative (NEGATIVE) Laboratory Tests Test 07/07/18 19:05 07/07/18 20:00 07/07/18 23:25 07/08/18 05:41 White Blood Count 10.2 x10^3/uL (4.0-11.0) 6.6 x10^3/uL (4.0-11.0) Red Blood Count 4.01 x10^6/uL (4.30-5.70) 4.02 x10^6/uL (4.30-5.70) Hemoglobin 12.3 g/dL (13.0-17.5) 12.3 g/dL (13.0-17.5) Hematocrit 37.2 % (39.0-53.0) 37.1 % (39.0-53.0) Mean Corpuscular Volume 93 fL (79-100) 92 fL (79-100) Mean Corpuscular Hemoglobin 31 pg (25-35) 31 pg (25-35) Mean Corpuscular Hemoglobin Concent 33 g/dL (31-37) 33 g/dL (31-37) Red Cell Distribution Width 14.8 % (11.5-14.5) 14.7 % (11.5-14.5) Platelet Count 142 x10^3/uL (140-400) 135 x10^3/uL (140-400) Neutrophils (%) (Auto) 86 % (31-73) 89 % (31-73) Lymphocytes (%) (Auto) 5 % (24-48) 6 % (24-48) Monocytes (%) (Auto) 9 % (0-9) 5 % (0-9) Eosinophils (%) (Auto) 0 % (0-3) 0 % (0-3) Basophils (%) (Auto) 0 % (0-3) 0 % (0-3) Neutrophils # (Auto) 8.7 x10^3uL (1.8-7.7) 5.9 x10^3uL (1.8-7.7) Lymphocytes # (Auto) 0.5 x10^3/uL (1.0-4.8) 0.4 x10^3/uL (1.0-4.8) Monocytes # (Auto) 0.9 x10^3/uL (0.0-1.1) 0.3 x10^3/uL (0.0-1.1) Eosinophils # (Auto) 0.0 x10^3/uL (0.0-0.7) 0.0 x10^3/uL (0.0-0.7) Basophils # (Auto) 0.0 x10^3/uL (0.0-0.2) 0.0 x10^3/uL (0.0-0.2) Segmented Neutrophils % 57 % (35-66) Band Neutrophils % 27 % (0-9) Lymphocytes % 8 % (24-48) Monocytes % 8 % (0-10) Toxic Granulation Slight Platelet Estimate Adequate (ADEQUATE) Sodium Level 136 mmol/L (136-145) 139 mmol/L (136-145) Potassium Level 4.1 mmol/L (3.5-5.1) 3.6 mmol/L (3.5-5.1) Chloride Level 101 mmol/L (98-107) 100 mmol/L (98-107) Carbon Dioxide Level 34 mmol/L (21-32) 35 mmol/L (21-32) Anion Gap 1 (6-14) 4 (6-14) Blood Urea Nitrogen 22 mg/dL (8-26) 23 mg/dL (8-26) Creatinine 1.3 mg/dL (0.7-1.3) 1.2 mg/dL (0.7-1.3) Estimated GFR (Cockcroft-Gault) 54.0 59.2 BUN/Creatinine Ratio 17 (6-20) 19 (6-20) Glucose Level 133 mg/dL (70-99) 210 mg/dL (70-99) Lactic Acid Level 1.7 mmol/L (0.4-2.0) 1.5 mmol/L (0.4-2.0) Calcium Level 8.3 mg/dL (8.5-10.1) 8.4 mg/dL (8.5-10.1) Total Bilirubin 1.0 mg/dL (0.2-1.0) 0.7 mg/dL (0.2-1.0) Aspartate Amino Transf (AST/SGOT) 13 U/L (15-37) 12 U/L (15-37) Alanine Aminotransferase (ALT/SGPT) 13 U/L (16-63) 14 U/L (16-63) Alkaline Phosphatase 77 U/L (46-116) 79 U/L (46-116) Troponin I Quantitative 0.041 ng/mL (0.000-0.055) 0.036 ng/mL (0.000-0.055) EM-Tkn-Q-Type Natriuretic Peptide 3452 pg/mL (0-124) Total Protein 7.3 g/dL (6.4-8.2) 7.2 g/dL (6.4-8.2) Albumin 3.2 g/dL (3.4-5.0) 2.8 g/dL (3.4-5.0) Albumin/Globulin Ratio 0.8 (1.0-1.7) 0.6 (1.0-1.7) Influenza Type A Antigen Negative (NEGATIVE) Influenza Type B Antigen Negative (NEGATIVE) Images Images Chest x-ray shows severe emphysema and cardiomegaly Assessment/Plan Assessment/Plan 1. Acute on chronic systolic heart failure. Ejection fraction on echocardiogram last fall was 20-25%. Patient is improving with diuresis. We'll continue diuresis and monitor lab. We'll update echocardiogram. 2. Coronary artery disease with history of bypass surgery. No chest pain. Continue present treatment. Echocardiogram as above. 3. AICD. We'll obtain sap security consultant and interrogate. 4. Acute exacerbation of COPD. Continuing pulmonary treatments and oxygen. Pulmonary evaluation is pending. 5. Hypertension. Continue present medications this time. Thank you for allowing us to participate in the care of your patient. ERIC OROZCO MD Jul 08, 2018 14:55
[2018-07-08 15:00] VITALS: BP 129/64
[2018-07-08] MEDS: CARVEDILOL 3.125 MG TABLET. PO SCH (16:39)
--- NOTE | 2018-07-08 17:50 | PDOC ---
PULMONARY PROGRESS NOTES Vitals Vital Signs Date Time Temp Pulse Resp B/P (MAP) Pulse Ox O2 Delivery O2 Flow Rate FiO2 07/08/18 16:39 65 129/64 07/08/18 16:23 96 Nasal Cannula 2.0 07/08/18 15:00 97.8 20 97.8 General: Alert Cardiovascular: S1 Abdomen: Soft Extremities: No Edema Labs Laboratory Tests Test 07/07/18 19:05 07/07/18 20:00 07/07/18 23:25 07/08/18 05:41 White Blood Count 10.2 x10^3/uL (4.0-11.0) 6.6 x10^3/uL (4.0-11.0) Red Blood Count 4.01 x10^6/uL (4.30-5.70) 4.02 x10^6/uL (4.30-5.70) Hemoglobin 12.3 g/dL (13.0-17.5) 12.3 g/dL (13.0-17.5) Hematocrit 37.2 % (39.0-53.0) 37.1 % (39.0-53.0) Mean Corpuscular Volume 93 fL (79-100) 92 fL (79-100) Mean Corpuscular Hemoglobin 31 pg (25-35) 31 pg (25-35) Mean Corpuscular Hemoglobin Concent 33 g/dL (31-37) 33 g/dL (31-37) Red Cell Distribution Width 14.8 % (11.5-14.5) 14.7 % (11.5-14.5) Platelet Count 142 x10^3/uL (140-400) 135 x10^3/uL (140-400) Neutrophils (%) (Auto) 86 % (31-73) 89 % (31-73) Lymphocytes (%) (Auto) 5 % (24-48) 6 % (24-48) Monocytes (%) (Auto) 9 % (0-9) 5 % (0-9) Eosinophils (%) (Auto) 0 % (0-3) 0 % (0-3) Basophils (%) (Auto) 0 % (0-3) 0 % (0-3) Neutrophils # (Auto) 8.7 x10^3uL (1.8-7.7) 5.9 x10^3uL (1.8-7.7) Lymphocytes # (Auto) 0.5 x10^3/uL (1.0-4.8) 0.4 x10^3/uL (1.0-4.8) Monocytes # (Auto) 0.9 x10^3/uL (0.0-1.1) 0.3 x10^3/uL (0.0-1.1) Eosinophils # (Auto) 0.0 x10^3/uL (0.0-0.7) 0.0 x10^3/uL (0.0-0.7) Basophils # (Auto) 0.0 x10^3/uL (0.0-0.2) 0.0 x10^3/uL (0.0-0.2) Segmented Neutrophils % 57 % (35-66) Band Neutrophils % 27 % (0-9) Lymphocytes % 8 % (24-48) Monocytes % 8 % (0-10) Toxic Granulation Slight Platelet Estimate Adequate (ADEQUATE) Sodium Level 136 mmol/L (136-145) 139 mmol/L (136-145) Potassium Level 4.1 mmol/L (3.5-5.1) 3.6 mmol/L (3.5-5.1) Chloride Level 101 mmol/L (98-107) 100 mmol/L (98-107) Carbon Dioxide Level 34 mmol/L (21-32) 35 mmol/L (21-32) Anion Gap 1 (6-14) 4 (6-14) Blood Urea Nitrogen 22 mg/dL (8-26) 23 mg/dL (8-26) Creatinine 1.3 mg/dL (0.7-1.3) 1.2 mg/dL (0.7-1.3) Estimated GFR (Cockcroft-Gault) 54.0 59.2 BUN/Creatinine Ratio 17 (6-20) 19 (6-20) Glucose Level 133 mg/dL (70-99) 210 mg/dL (70-99) Lactic Acid Level 1.7 mmol/L (0.4-2.0) 1.5 mmol/L (0.4-2.0) Calcium Level 8.3 mg/dL (8.5-10.1) 8.4 mg/dL (8.5-10.1) Total Bilirubin 1.0 mg/dL (0.2-1.0) 0.7 mg/dL (0.2-1.0) Aspartate Amino Transf (AST/SGOT) 13 U/L (15-37) 12 U/L (15-37) Alanine Aminotransferase (ALT/SGPT) 13 U/L (16-63) 14 U/L (16-63) Alkaline Phosphatase 77 U/L (46-116) 79 U/L (46-116) Troponin I Quantitative 0.041 ng/mL (0.000-0.055) 0.036 ng/mL (0.000-0.055) BD-Rcx-H-Type Natriuretic Peptide 3452 pg/mL (0-124) Total Protein 7.3 g/dL (6.4-8.2) 7.2 g/dL (6.4-8.2) Albumin 3.2 g/dL (3.4-5.0) 2.8 g/dL (3.4-5.0) Albumin/Globulin Ratio 0.8 (1.0-1.7) 0.6 (1.0-1.7) Influenza Type A Antigen Negative (NEGATIVE) Influenza Type B Antigen Negative (NEGATIVE) Laboratory Tests Test 07/07/18 19:05 07/07/18 20:00 07/07/18 23:25 07/08/18 05:41 White Blood Count 10.2 x10^3/uL (4.0-11.0) 6.6 x10^3/uL (4.0-11.0) Red Blood Count 4.01 x10^6/uL (4.30-5.70) 4.02 x10^6/uL (4.30-5.70) Hemoglobin 12.3 g/dL (13.0-17.5) 12.3 g/dL (13.0-17.5) Hematocrit 37.2 % (39.0-53.0) 37.1 % (39.0-53.0) Mean Corpuscular Volume 93 fL (79-100) 92 fL (79-100) Mean Corpuscular Hemoglobin 31 pg (25-35) 31 pg (25-35) Mean Corpuscular Hemoglobin Concent 33 g/dL (31-37) 33 g/dL (31-37) Red Cell Distribution Width 14.8 % (11.5-14.5) 14.7 % (11.5-14.5) Platelet Count 142 x10^3/uL (140-400) 135 x10^3/uL (140-400) Neutrophils (%) (Auto) 86 % (31-73) 89 % (31-73) Lymphocytes (%) (Auto) 5 % (24-48) 6 % (24-48) Monocytes (%) (Auto) 9 % (0-9) 5 % (0-9) Eosinophils (%) (Auto) 0 % (0-3) 0 % (0-3) Basophils (%) (Auto) 0 % (0-3) 0 % (0-3) Neutrophils # (Auto) 8.7 x10^3uL (1.8-7.7) 5.9 x10^3uL (1.8-7.7) Lymphocytes # (Auto) 0.5 x10^3/uL (1.0-4.8) 0.4 x10^3/uL (1.0-4.8) Monocytes # (Auto) 0.9 x10^3/uL (0.0-1.1) 0.3 x10^3/uL (0.0-1.1) Eosinophils # (Auto) 0.0 x10^3/uL (0.0-0.7) 0.0 x10^3/uL (0.0-0.7) Basophils # (Auto) 0.0 x10^3/uL (0.0-0.2) 0.0 x10^3/uL (0.0-0.2) Segmented Neutrophils % 57 % (35-66) Band Neutrophils % 27 % (0-9) Lymphocytes % 8 % (24-48) Monocytes % 8 % (0-10) Toxic Granulation Slight Platelet Estimate Adequate (ADEQUATE) Sodium Level 136 mmol/L (136-145) 139 mmol/L (136-145) Potassium Level 4.1 mmol/L (3.5-5.1) 3.6 mmol/L (3.5-5.1) Chloride Level 101 mmol/L (98-107) 100 mmol/L (98-107) Carbon Dioxide Level 34 mmol/L (21-32) 35 mmol/L (21-32) Anion Gap 1 (6-14) 4 (6-14) Blood Urea Nitrogen 22 mg/dL (8-26) 23 mg/dL (8-26) Creatinine 1.3 mg/dL (0.7-1.3) 1.2 mg/dL (0.7-1.3) Estimated GFR (Cockcroft-Gault) 54.0 59.2 BUN/Creatinine Ratio 17 (6-20) 19 (6-20) Glucose Level 133 mg/dL (70-99) 210 mg/dL (70-99) Lactic Acid Level 1.7 mmol/L (0.4-2.0) 1.5 mmol/L (0.4-2.0) Calcium Level 8.3 mg/dL (8.5-10.1) 8.4 mg/dL (8.5-10.1) Total Bilirubin 1.0 mg/dL (0.2-1.0) 0.7 mg/dL (0.2-1.0) Aspartate Amino Transf (AST/SGOT) 13 U/L (15-37) 12 U/L (15-37) Alanine Aminotransferase (ALT/SGPT) 13 U/L (16-63) 14 U/L (16-63) Alkaline Phosphatase 77 U/L (46-116) 79 U/L (46-116) Troponin I Quantitative 0.041 ng/mL (0.000-0.055) 0.036 ng/mL (0.000-0.055) SZ-Yst-G-Type Natriuretic Peptide 3452 pg/mL (0-124) Total Protein 7.3 g/dL (6.4-8.2) 7.2 g/dL (6.4-8.2) Albumin 3.2 g/dL (3.4-5.0) 2.8 g/dL (3.4-5.0) Albumin/Globulin Ratio 0.8 (1.0-1.7) 0.6 (1.0-1.7) Influenza Type A Antigen Negative (NEGATIVE) Influenza Type B Antigen Negative (NEGATIVE) Medications Active Scripts Medications Dose Route/Sig Max Daily Dose Days Date Category Prednisone 5 Mg Tablet 5 Mg PO DAILY 12/21/15 Rx Lisinopril 10 Mg Tablet 10 Mg PO DAILY 12/21/15 Rx Furosemide 40 Mg Tablet 40 Mg PO DAILY 12/21/15 Rx Clopidogrel (Clopidogrel Bisulfate) 75 Mg Tablet 75 Mg PO DAILYWBKFT 12/21/15 Rx Carvedilol 3.125 Mg Tablet 3.125 Mg PO BIDWMEALS 12/21/15 Rx Aspirin Ec (Aspirin) 325 Mg Tablet.dr 325 Mg PO DAILYWBKFT 12/21/15 Rx Lovastatin 40 Mg Tablet 1 Tab PO DAILY 12/14/14 Reported Neurontin (Gabapentin) 300 Mg Capsule 300 Mg PO QID 01/24/14 Reported Impression . AECOPD ABNORMAL CXR SEE DICTATED AGREE WITH CURRENT RX RADAMES MORALES MD Jul 08, 2018 17:50
[2018-07-08 19:00] VITALS: BP 125/66
--- NOTE | 2018-07-08 20:45 | CONS ---
DATE OF CONSULTATION: 07/08/2018 ATTENDING PHYSICIAN: Dr. Murdock. REASON FOR CONSULTATION: The patient seen in pulmonary consultation at the request of Dr. Vela for abnormal chest x-ray revealing severe emphysematous changes and prominent interstitial lung markings. HISTORY OF PRESENT ILLNESS: The patient is a 72-year-old, with end-stage COPD, currently on no oxygen supplementation at home, presented with increasing shortness of breath. He states that he has had some sinus issues in the past. He was experiencing upper respiratory tract infection, cough, mostly productive of some discolored sputum. Denies fever, chills or night sweats. The patient presented, he had a chest x-ray, which reveals increased lung markings. I did review his scan from 02/05/2018 revealing a right nodule, no changes compared to the film of 10/12/2017. He does have some severe emphysematous changes and mild fibrosis in the left base. PAST MEDICAL HISTORY: Remarkable for: 1. Severe COPD, emphysematous changes and bullae seen on previous CT. 2. Right pulmonary nodules visualized on 02/05/[address], no change in comparison to the film of 10/12/2017. 3. Hyperlipidemia. 4. Coronary artery disease, status post coronary artery bypass grafting. 5. Status post pacemaker. PAST SURGICAL HISTORY: As above. REVIEW OF SYSTEMS: CONSTITUTIONAL: Denies fever or chills. EYES: No change in visual acuity. HEENT: Some nasal congestion, no sore throat. He does have allergies. In the past, he has taken some Zyrtec, no sore throat. RESPIRATORY: As indicated above. CARDIOVASCULAR: No chest pain or pressure. GASTROINTESTINAL: No nausea, vomiting or diarrhea. GENITOURINARY: No dysuria or frequency. MUSCULOSKELETAL: No localized muscle aches and joint pain. SKIN: No new skin rashes. NEUROLOGIC: No headaches, diplopia or blurred vision. SKIN: No new skin rashes. SOCIAL HISTORY: He quit tobacco in 1996. He worked in [employer]. ALLERGIES: No known drug allergies. HE DOES HAVE SEASONAL ALLERGIES. MEDICATIONS: Medication list was reviewed from home. FAMILY HISTORY: His brother had COPD. PHYSICAL EXAMINATION: VITAL SIGNS: Stable. O2 saturation was greater than 92%, currently on 2 liters. HEENT: Eyes, the sclerae were nonicteric. NECK: Jugular venous distention could not be assessed secondary to body habitus. CHEST: Full expansion. LUNGS: Very poor airway flow with prolonged expiratory phase and expiratory wheeze. CARDIOVASCULAR: Regular rate and rhythm with S1, S2, no S3. ABDOMEN: Obese, soft, nontender. EXTREMITIES: No clubbing, cyanosis or edema. NEUROLOGIC: The patient was awake, alert, following commands. A detailed neuro exam was not performed. LABORATORY DATA: Reviewed. White count was normal. Hemoglobin and hematocrit were normal. Electrolytes were normal. Influenza screen was negative. CT chest as indicated above. IMPRESSION: 1. Progressive dyspnea secondary to acute exacerbation of chronic obstructive pulmonary disease. 2. Abnormal x-ray revealing emphysematous changes and possibly mild pulmonary fibrosis. 3. Previous right nodule, not changed on CT in February 2018 in comparison to 10/12/2017. 4. Seasonal allergies, allergic rhinitis. 5. Hyperlipidemia. 6. Coronary artery disease, status post coronary artery bypass grafting. PLAN: 1. Recommend treatment for acute exacerbation with nebulized treatments, steroids and antibiotics. 2. Add Zyrtec. 3. Add Flonase. 4. Obtain old records from our office, we will then make recommendations on further scanning of his chest. 5. Continue diuresis. 6. Home medications. 7. A 6-minute walk prior to discharge. I do appreciate the privilege in sharing in the patient's care. RADAMES MORALES MD DR: CRISTÓBAL/kieran JOB#: [id number] / [id number]
[2018-07-08] MEDS: LACTOBACILLUS RHAMNOSUS GG 1 CAPSULE. PO SCH (20:58)
[2018-07-08] MEDS ORDERED: ATORVASTATIN CALCIUM 10 MG TABLET. PO SCH (21:00)
[2018-07-08] MEDS ORDERED: FAMOTIDINE 20 MG TABLET. PO SCH (21:00)
[2018-07-08 23:00] VITALS: BP 113/59
[2018-07-09 03:00] VITALS: BP 99/41
[2018-07-09] MEDS: BENZONATATE 100 MG CAPSULE. PO SCH ×2 (04:32→13:54)
[2018-07-09 05:42] LABS: BASO % 0 % (0-3); EOS % 0 % (0-3); HEMATOCRIT 32.8 % (39.0-53.0); HEMOGLOBIN 11.1 g/dL (13.0-17.5); LYMPH # 0.4 x10^3/uL (1.0-4.8); LYMPH % 4 % (24-48); MEAN CORPUSCULAR HEMOGLOBIN 31 pg (25-35); MEAN CORPUSCULAR HGB CONC 34 g/dL (31-37); MEAN CORPUSCULAR VOLUME 91 fL (79-100); MONO # 0.5 x10^3/uL (0.0-1.1); MONO % 5 % (0-9); NEUT # 9.6 x10^3uL (1.8-7.7); NEUT % 92 % (31-73); PLATELET COUNT 152 x10^3/uL (140-400); RED BLOOD COUNT 3.58 x10^6/uL (4.30-5.70); RED CELL DISTRIBUTION WIDTH 14.6 % (11.5-14.5); WHITE BLOOD COUNT 10.5 x10^3/uL (4.0-11.0)
[2018-07-09 06:20] LABS: CALCIUM 7.9 mg/dL (8.5-10.1); MAGNESIUM 2.3 mg/dL (1.8-2.4); POTASSIUM 3.4 mmol/L (3.5-5.1)
[2018-07-09 06:23] LABS: CHOLESTEROL/HDL RATIO 3.2
[2018-07-09 07:04] VITALS: BP 98/38
[2018-07-09] MEDS: IPRATRPIUM/ALBUTEROL 0.5/2.5MG 3 ML NEBU. NEB SCH ×3 (07:48→15:33)
[2018-07-09] MEDS ORDERED: CLOPIDOGREL BISULFATE 75 MG TABLET PO SCH (08:00)
[2018-07-09] MEDS ORDERED: ASPIRIN ENTERIC COATED 325 MG TABLET.DR. PO SCH (08:00)
[2018-07-09] MEDS: LACTOBACILLUS RHAMNOSUS GG 1 CAPSULE. PO SCH (08:12)
[2018-07-09] MEDS: GABAPENTIN 300 MG CAPSULE. PO SCH ×2 (08:12→13:54)
[2018-07-09] MEDS: predniSONE 20 MG TABLET PO SCH (08:13)
[2018-07-09] MEDS: FUROSEMIDE 40 MG TABLET. PO SCH (08:14)
[2018-07-09] MEDS: CARVEDILOL 3.125 MG TABLET. PO SCH (08:17)
[2018-07-09] MEDS ORDERED: POTASSIUM CHLORIDE 20 MEQ TABLET.ER. PO ONE (08:30)
[2018-07-09] MEDS ORDERED: CETIRIZINE HCL 10 MG TABLET. PO SCH (09:00)
[2018-07-09] MEDS ORDERED: LISINOPRIL 10 MG TABLET PO SCH (09:00)
[2018-07-09] MEDS: FLUTICASONE 50MCG/NASAL SPRAY 16GM BOTTLE. NS SCH (09:03)
[2018-07-09] MEDS ORDERED: PRED20TA PO (09:28)
[2018-07-09] MEDS ORDERED: FAMO20TA5 PO (09:28)
[2018-07-09] MEDS ORDERED: CETI10TA16 PO (09:28)
[2018-07-09] MEDS ORDERED: GUAI600T47 PO (09:28)
[2018-07-09] MEDS ORDERED: BENZ-8 PO (09:28)
[2018-07-09] MEDS ORDERED: LEVO500T59 PO (09:28)
--- NOTE | 2018-07-09 10:04 | PDOC ---
PULMONARY PROGRESS NOTES Subjective FEELS BETTER WANTS TO GO HOME Vitals Vital Signs Date Time Temp Pulse Resp B/P (MAP) Pulse Ox O2 Delivery O2 Flow Rate FiO2 07/09/18 08:17 58 116/51 07/09/18 07:49 Nasal Cannula 2.0 07/09/18 07:04 97.9 17 96 97.9 General: Alert, No acute distress Lungs: Clear Cardiovascular: S1 Abdomen: Soft Neuro Exam: Alert Extremities: No Edema Skin: Warm Labs Laboratory Tests Test 07/07/18 19:05 07/07/18 20:00 07/07/18 23:25 07/08/18 05:41 White Blood Count 10.2 x10^3/uL (4.0-11.0) 6.6 x10^3/uL (4.0-11.0) Red Blood Count 4.01 x10^6/uL (4.30-5.70) 4.02 x10^6/uL (4.30-5.70) Hemoglobin 12.3 g/dL (13.0-17.5) 12.3 g/dL (13.0-17.5) Hematocrit 37.2 % (39.0-53.0) 37.1 % (39.0-53.0) Mean Corpuscular Volume 93 fL (79-100) 92 fL (79-100) Mean Corpuscular Hemoglobin 31 pg (25-35) 31 pg (25-35) Mean Corpuscular Hemoglobin Concent 33 g/dL (31-37) 33 g/dL (31-37) Red Cell Distribution Width 14.8 % (11.5-14.5) 14.7 % (11.5-14.5) Platelet Count 142 x10^3/uL (140-400) 135 x10^3/uL (140-400) Neutrophils (%) (Auto) 86 % (31-73) 89 % (31-73) Lymphocytes (%) (Auto) 5 % (24-48) 6 % (24-48) Monocytes (%) (Auto) 9 % (0-9) 5 % (0-9) Eosinophils (%) (Auto) 0 % (0-3) 0 % (0-3) Basophils (%) (Auto) 0 % (0-3) 0 % (0-3) Neutrophils # (Auto) 8.7 x10^3uL (1.8-7.7) 5.9 x10^3uL (1.8-7.7) Lymphocytes # (Auto) 0.5 x10^3/uL (1.0-4.8) 0.4 x10^3/uL (1.0-4.8) Monocytes # (Auto) 0.9 x10^3/uL (0.0-1.1) 0.3 x10^3/uL (0.0-1.1) Eosinophils # (Auto) 0.0 x10^3/uL (0.0-0.7) 0.0 x10^3/uL (0.0-0.7) Basophils # (Auto) 0.0 x10^3/uL (0.0-0.2) 0.0 x10^3/uL (0.0-0.2) Segmented Neutrophils % 57 % (35-66) Band Neutrophils % 27 % (0-9) Lymphocytes % 8 % (24-48) Monocytes % 8 % (0-10) Toxic Granulation Slight Platelet Estimate Adequate (ADEQUATE) Sodium Level 136 mmol/L (136-145) 139 mmol/L (136-145) Potassium Level 4.1 mmol/L (3.5-5.1) 3.6 mmol/L (3.5-5.1) Chloride Level 101 mmol/L (98-107) 100 mmol/L (98-107) Carbon Dioxide Level 34 mmol/L (21-32) 35 mmol/L (21-32) Anion Gap 1 (6-14) 4 (6-14) Blood Urea Nitrogen 22 mg/dL (8-26) 23 mg/dL (8-26) Creatinine 1.3 mg/dL (0.7-1.3) 1.2 mg/dL (0.7-1.3) Estimated GFR (Cockcroft-Gault) 54.0 59.2 BUN/Creatinine Ratio 17 (6-20) 19 (6-20) Glucose Level 133 mg/dL (70-99) 210 mg/dL (70-99) Lactic Acid Level 1.7 mmol/L (0.4-2.0) 1.5 mmol/L (0.4-2.0) Calcium Level 8.3 mg/dL (8.5-10.1) 8.4 mg/dL (8.5-10.1) Total Bilirubin 1.0 mg/dL (0.2-1.0) 0.7 mg/dL (0.2-1.0) Aspartate Amino Transf (AST/SGOT) 13 U/L (15-37) 12 U/L (15-37) Alanine Aminotransferase (ALT/SGPT) 13 U/L (16-63) 14 U/L (16-63) Alkaline Phosphatase 77 U/L (46-116) 79 U/L (46-116) Troponin I Quantitative 0.041 ng/mL (0.000-0.055) 0.036 ng/mL (0.000-0.055) KV-Vtr-S-Type Natriuretic Peptide 3452 pg/mL (0-124) Total Protein 7.3 g/dL (6.4-8.2) 7.2 g/dL (6.4-8.2) Albumin 3.2 g/dL (3.4-5.0) 2.8 g/dL (3.4-5.0) Albumin/Globulin Ratio 0.8 (1.0-1.7) 0.6 (1.0-1.7) Influenza Type A Antigen Negative (NEGATIVE) Influenza Type B Antigen Negative (NEGATIVE) Test 07/09/18 04:30 White Blood Count 10.5 x10^3/uL (4.0-11.0) Red Blood Count 3.58 x10^6/uL (4.30-5.70) Hemoglobin 11.1 g/dL (13.0-17.5) Hematocrit 32.8 % (39.0-53.0) Mean Corpuscular Volume 91 fL (79-100) Mean Corpuscular Hemoglobin 31 pg (25-35) Mean Corpuscular Hemoglobin Concent 34 g/dL (31-37) Red Cell Distribution Width 14.6 % (11.5-14.5) Platelet Count 152 x10^3/uL (140-400) Neutrophils (%) (Auto) 92 % (31-73) Lymphocytes (%) (Auto) 4 % (24-48) Monocytes (%) (Auto) 5 % (0-9) Eosinophils (%) (Auto) 0 % (0-3) Basophils (%) (Auto) 0 % (0-3) Neutrophils # (Auto) 9.6 x10^3uL (1.8-7.7) Lymphocytes # (Auto) 0.4 x10^3/uL (1.0-4.8) Monocytes # (Auto) 0.5 x10^3/uL (0.0-1.1) Eosinophils # (Auto) 0.0 x10^3/uL (0.0-0.7) Basophils # (Auto) 0.0 x10^3/uL (0.0-0.2) Sodium Level 139 mmol/L (136-145) Potassium Level 3.4 mmol/L (3.5-5.1) Chloride Level 102 mmol/L (98-107) Carbon Dioxide Level 32 mmol/L (21-32) Anion Gap 5 (6-14) Blood Urea Nitrogen 30 mg/dL (8-26) Creatinine 1.0 mg/dL (0.7-1.3) Estimated GFR (Cockcroft-Gault) 73.0 Glucose Level 133 mg/dL (70-99) Calcium Level 7.9 mg/dL (8.5-10.1) Magnesium Level 2.3 mg/dL (1.8-2.4) Triglycerides Level 79 mg/dL (0-150) Cholesterol Level 110 mg/dL (0-200) LDL Cholesterol, Calculated 60 mg/dL (0-100) VLDL Cholesterol, Calculated 16 mg/dL (0-40) Non-HDL Cholesterol Calculated 76 mg/dL (0-129) HDL Cholesterol 34 mg/dL (40-60) Cholesterol/HDL Ratio 3.2 Laboratory Tests Test 07/09/18 04:30 White Blood Count 10.5 x10^3/uL (4.0-11.0) Red Blood Count 3.58 x10^6/uL (4.30-5.70) Hemoglobin 11.1 g/dL (13.0-17.5) Hematocrit 32.8 % (39.0-53.0) Mean Corpuscular Volume 91 fL (79-100) Mean Corpuscular Hemoglobin 31 pg (25-35) Mean Corpuscular Hemoglobin Concent 34 g/dL (31-37) Red Cell Distribution Width 14.6 % (11.5-14.5) Platelet Count 152 x10^3/uL (140-400) Neutrophils (%) (Auto) 92 % (31-73) Lymphocytes (%) (Auto) 4 % (24-48) Monocytes (%) (Auto) 5 % (0-9) Eosinophils (%) (Auto) 0 % (0-3) Basophils (%) (Auto) 0 % (0-3) Neutrophils # (Auto) 9.6 x10^3uL (1.8-7.7) Lymphocytes # (Auto) 0.4 x10^3/uL (1.0-4.8) Monocytes # (Auto) 0.5 x10^3/uL (0.0-1.1) Eosinophils # (Auto) 0.0 x10^3/uL (0.0-0.7) Basophils # (Auto) 0.0 x10^3/uL (0.0-0.2) Sodium Level 139 mmol/L (136-145) Potassium Level 3.4 mmol/L (3.5-5.1) Chloride Level 102 mmol/L (98-107) Carbon Dioxide Level 32 mmol/L (21-32) Anion Gap 5 (6-14) Blood Urea Nitrogen 30 mg/dL (8-26) Creatinine 1.0 mg/dL (0.7-1.3) Estimated GFR (Cockcroft-Gault) 73.0 Glucose Level 133 mg/dL (70-99) Calcium Level 7.9 mg/dL (8.5-10.1) Magnesium Level 2.3 mg/dL (1.8-2.4) Triglycerides Level 79 mg/dL (0-150) Cholesterol Level 110 mg/dL (0-200) LDL Cholesterol, Calculated 60 mg/dL (0-100) VLDL Cholesterol, Calculated 16 mg/dL (0-40) Non-HDL Cholesterol Calculated 76 mg/dL (0-129) HDL Cholesterol 34 mg/dL (40-60) Cholesterol/HDL Ratio 3.2 Medications Active Scripts Medications Dose Route/Sig Max Daily Dose Days Date Category Prednisone 5 Mg Tablet 5 Mg PO DAILY 12/21/15 Rx Lisinopril 10 Mg Tablet 10 Mg PO DAILY 12/21/15 Rx Furosemide 40 Mg Tablet 40 Mg PO DAILY 12/21/15 Rx Clopidogrel (Clopidogrel Bisulfate) 75 Mg Tablet 75 Mg PO DAILYWBKFT 12/21/15 Rx Carvedilol 3.125 Mg Tablet 3.125 Mg PO BIDWMEALS 12/21/15 Rx Aspirin Ec (Aspirin) 325 Mg Tablet.dr 325 Mg PO DAILYWBKFT 12/21/15 Rx Lovastatin 40 Mg Tablet 1 Tab PO DAILY 12/14/14 Reported Neurontin (Gabapentin) 300 Mg Capsule 300 Mg PO QID 01/24/14 Reported Impression . 1. Progressive dyspnea secondary to acute exacerbation of chronic obstructive pulmonary disease.IMPROVED. 2. Abnormal x-ray revealing emphysematous changes and possibly mild pulmonary fibrosis. 3. Previous right nodule, not changed on CT in February 2018 in comparison to 10/12/2017. 4. Seasonal allergies, allergic rhinitis. post nasal drip 5. Hyperlipidemia. 6. Coronary artery disease, status post coronary artery bypass grafting. Plan . 1. nebulized treatments,steroids and antibiotics. 2. Zyrtec. 3. Flonase. 4. repeat ct chest today and if nodule stable, can go home 5. Continue diuresis. 6. Home medications. 7. A 6-minute walk prior to discharge. pt does not uses oxygen regularly at home FELIBERTO RAMOS MD Jul 09, 2018 10:04
[2018-07-09 10:26] VITALS: BP 116/51
[2018-07-09 10:31] VITALS: BP 116/51
--- NOTE | 2018-07-09 12:06 | PDOC3 ---
Discharge Summary [facility] Date of Admission: Jul 07, 2018 Discharge Date: Jul 09, 2018 Admitting Diagnosis acute on chronic hypoxic resp failure copd exacerbation Bronchitis h/o CAD with stents, CABG h/o CHF, systolic HTN nasal drip PPM/ICD mild malnutrition Final Diagnosis CONSULTS pulm card Brief Hospital Course 72-year-old male with end-stage COPD and multiple other medical problems presents with cough and sob for 2 days. pt quit smoking for 30ys, home o2 NC 2L, has copd, but not taking any meds since he was prescribed symbicort which will cost him >100bucks per month and he has not decided to pay yet. pt started to cough with yellow sputum from Sunday, has sob, denies fever and chills, no chest pain. Came to ER, now need NC 3l. He said he started to feel nasal drip first and then tried to cough it out. pt feels better today altho still cough a lot in front of me, wants go home. got lasix iv x1 in ER. pt feels better today, wants to go home. CT ordered as per pulm, echo also pending. dc home if ok with specialists, cont abx, cough meds. pt not sure if want advair from me, asked him to talk to pulm to see if want other meds other than symbicort which he has not refilled. 6min walk pending, pt told me he is on home o2 2l, BUT told pulm he was not regularly using it. will fu with results. GEN.: No apparent distress. Alert and oriented. HEENT: Head is normocephalic, atraumatic NECK: Supple. LUNGS: BL moderate decreased bs with mild wheezing, tightness. HEART: RRR, S1, S2 present. Peripheral pulses intact ABDOMEN: Soft, nontender. Positive bowel sounds. EXTREMITIES: Without any cyanosis. no edema. NEUROLOGIC: Normal speech, normal tone PSYCHIATRIC: Normal affect, normal mood. SKIN: No ulcerations Disposition home CONDITION AT DISCHARGE: Improved Scheduled Aspirin (Aspirin Ec), 325 MG PO DAILYWBKFT Benzonatate (Benzonatate), 100 MG PO [id number] Carvedilol (Carvedilol), 3.125 MG PO BIDWMEALS Cetirizine Hcl (Cetirizine Hcl), 10 MG PO DAILY Clopidogrel Bisulfate (Clopidogrel), 75 MG PO DAILYWBKFT Famotidine (Famotidine), 20 MG PO QHS Furosemide (Furosemide), 40 MG PO DAILY Gabapentin (Neurontin), 300 MG PO QID, (Reported) Guaifenesin (Mucinex), 600 MG PO BID Levofloxacin (Levaquin), 500 MG PO [id number] Lisinopril (Lisinopril), 10 MG PO DAILY Lovastatin (Lovastatin), 1 TAB PO DAILY, (Reported) Prednisone (Prednisone), 40 MG PO DAILY Discontinued Medications Prednisone (Prednisone), 5 MG PO DAILY FERNANDO BELLO MD Jul 09, 2018 12:06
--- NOTE | 2018-07-09 12:19 | RAD ---
CT of the chest without contrast, 07/09/2018: HISTORY: Follow-up lung nodule Noncontrast scans were obtained and compared to a study from 02/05/2018. A transvenous pacing device is in place with multiple leads extending into the right heart. There is moderate calcific plaquing of the thoracic aorta without evidence of aneurysm. Extensive coronary artery calcifications are present. There has been a previous median sternotomy. There is a slightly prominent right paratracheal lymph node measuring 11 mm in short axis dimension. It has shown no definite change several other smaller subcentimeter mediastinal nodes are again noted. There is a calcified node at the right hilum. A calcified granuloma is present in the right lower lobe. There are severe emphysematous changes in the lungs with scattered parenchymal scars. There is peripheral honeycombing in the lung bases. There are several new small irregular parenchymal opacities bilaterally, likely inflammatory in nature. These include a medial left upper lobe opacity seen on image 140 of series #3, a right lower lobe opacity seen on image 276 of series #3, and a right middle lobe opacity seen on image 201 of series #3. Bibasilar interstitial opacities are generally more prominent than on the previous study compatible with inflammation or edema. A 15 x 6 mm elongated noncalcified pulmonary density abutting the minor fissure in the right middle lobe appears unchanged. No pleural fluid is evident. A small right adrenal nodule is unchanged. IMPRESSION: 1. Severe pulmonary emphysema with parenchymal scarring in bibasilar peripheral honeycombing. 2. Several new mild patchy pulmonary opacities and increased basilar interstitial markings suggest superimposed inflammation and/or edema. 3. Stable small right middle lobe nodule abutting the minor fissure. 4. Extensive coronary artery calcifications. 5. Stable small right adrenal nodule. PQRS Compliance Statement: One or more of the following individualized dose reduction techniques were utilized for this examination: 1. Automated exposure control 2. Adjustment of the mA and/or kV according to patient size 3. Use of iterative reconstruction technique Electronically signed by: Jose A Thrasher MD (07/09/2018 12:16 PM) [facility]
[2018-07-09] MEDS: ENOXAPARIN 40 MG/0.4 ML SYRINGE. SQ SCH (13:55)
[2018-07-09 14:58] VITALS: BP 157/64
--- NOTE | 2018-07-09 15:53 | CARD ---
MR#: [id number] Date of Study: 07/09/2018 Ordering Physician: ERIC OROZCO, Referring Physician: BIRD RUSSELL Tech: Zoë Agrawal RDCS APPROVED REPORT EXAM: Two-dimensional and M-mode echocardiogram with Doppler and color Doppler. Other Information Quality : Good INDICATION Cardiomyopathy 2D DIMENSIONS RVDd3.2 (2.9-3.5cm)Left Atrium(2D)5.2 (1.6-4.0cm) IVSd1.2 (0.7-1.1cm)Aortic Root(2D)3.4 (2.0-3.7cm) LVDd7.1 (3.9-5.9cm)LVOT Diameter2.4 (1.8-2.4cm) PWd1.2 (0.7-1.1cm)LVDs5.3 (2.5-4.0cm) FS (%) 20.0 %SV134.8 ml Aortic Valve AoV Peak Juan.66.9cm/sAoV VTI13.6cm AO Peak GR.1.8mmHgLVOT VTI 15.62cm AO Mean GR.1mmHgAVA (VTI)5.16cm2 Mitral Valve MV E Ukhxzkim07.8cm/sMV DECEL LYJL901rd MV A Hlzkxiyd83.3cm/sE/A Ratio1.4 TDI Lateral E' P. V4.51cm/sMedial E' P. V5.02cm/s E/Lateral E'16.1E/Medial E'14.5 Tricuspid Valve TR P. Cematmws137oc/sRAP XGLWUVPG4zrCt TR Peak Gr.51csGtGNUT79iwKp Pulmonary Vein S1 Jinbqser08.3cm/sS2 Yvgaspej21.26cm/s D2 Dpdftbmc50.3cm/s LEFT VENTRICLE The Left Ventricle is moderately dilated. There is mild concentric left ventricular hypertrophy. Left ventricle systolic function is severely impaired. The Ejection Fraction is 20-25%. Akinetic basal in ferior wall. Transmitral Doppler flow pattern is Grade II-pseudonormal filling dynamics. RIGHT VENTRICLE The right ventricle is normal size. The right ventricular systolic function is normal. There is a pac emaker lead in the right ventricle. ATRIA The left atrium is moderately dilated. The right atrium is moderately dilated. A pacemaker wire is se en in the right atrium consistent with history. The interatrial septum is intact with no evidence for an atrial septal defect or patent foramen ovale as noted on 2-D or Doppler imaging. AORTIC VALVE The aortic valve is calcified but opens well. Doppler and Color Flow revealed no significant aortic r egurgitation. There is no significant aortic valvular stenosis. MITRAL VALVE The mitral valve is calcified but opens well. There is no evidence of mitral valve prolapse. There is no mitral valve stenosis. Doppler and Color-flow revealed mild mitral regurgitation. TRICUSPID VALVE The tricuspid valve is normal in structure and function. Doppler and Color Flow revealed trace tricus pid regurgitation. There is moderate pulmonary hypertension. The PA pressure was estimated at 47 mmHg . There is no tricuspid valve stenosis. PULMONIC VALVE The pulmonary valve is normal in structure and function. Doppler and Color Flow revealed no pulmonic valvular regurgitation. There is no pulmonic valvular stenosis. GREAT VESSELS The aortic root is normal in size. The ascending aorta is normal in size. The IVC is normal in size a nd collapses >50% with inspiration. PERICARDIAL EFFUSION There is no evidence of significant pericardial effusion. Critical Notification Critical Value: No <Conclusion> Left ventricle systolic function is severely impaired. Akinetic basal inferior wall. The Ejection Fraction is 20-25%. Pacer wire noted in the right atrium and right ventricle consistent with history. Mild mitral regurgitation. Trace tricuspid regurgitation. There is moderate pulmonary hypertension. The PA pressure was estimated at 47 mmHg. There is no evidence of significant pericardial effusion. Signed by : Alejo Walter, Electronically Approved : 07/09/2018 15:52:02
== END 2018-07-09 16:00 | disposition home or self-care (01) | DRG 291 ==
LOC: ER 18:40 → 5 SOUTH 20:35
PROVIDERS: ADMIT Internal Medicine; ATTEND Internal Medicine
DX: I11.0 Hypertensive heart disease with heart failure (principal); J96.21 Acute and chronic respiratory failure with hypoxia; J44.1 Chronic obstructive pulmonary disease with (acute) exacerbation; E44.1 Mild protein-calorie malnutrition; I50.23 Acute on chronic systolic (congestive) heart failure; I42.9 Cardiomyopathy, unspecified; E78.00 Pure hypercholesterolemia, unspecified; E78.5 Hyperlipidemia, unspecified; I25.10 Atherosclerotic heart disease of native coronary artery without angina pectoris; J30.2 Other seasonal allergic rhinitis; K57.90 Diverticulosis of intestine, part unspecified, without perforation or abscess without bleeding; M19.90 Unspecified osteoarthritis, unspecified site; K21.9 Gastro-esophageal reflux disease without esophagitis; Z82.49 Family history of ischemic heart disease and other diseases of the circulatory system; Z82.5 Family history of asthma and other chronic lower respiratory diseases; Z85.46 Personal history of malignant neoplasm of prostate; Z87.891 Personal history of nicotine dependence; Z95.1 Presence of aortocoronary bypass graft; Z95.5 Presence of coronary angioplasty implant and graft; Z99.81 Dependence on supplemental oxygen; Z68.33 Body mass index [BMI] 33.0-33.9, adult; Z95.810 Presence of automatic (implantable) cardiac defibrillator; Z79.82 Long term (current) use of aspirin; Z79.02 Long term (current) use of antithrombotics/antiplatelets; Z79.899 Other long term (current) drug therapy
CPT/HCPCS: 36415; 71045; 71250; 80048; 80053; 80061; 83605; 83735; 83880; 84484; 85007; 85025; 87040; 87804; 93005; 93306; 94618; 94640; 94760; J1650; J1940; J1956; J2930; J7030; J7512; J7620

== ENCOUNTER 2018-07-22 11:17 | Inpatient (IN) | payer MEDICARE, BC ==
[~2018-07-22] VITALS: Ht 180.3 cm; Wt 96.6 kg
[~2018-07-22 11:17] MED LIST changes: +BENZ-8 PO; +CETI10TA16 PO; +FAMO20TA5 PO; +GUAI600T47 PO; +LEVO500T59 PO; +PRED20TA PO
[2018-07-22 12:13] LABS: BASO % 0 % (0-3); EOS # 0.1 x10^3/uL (0.0-0.7); EOS % 1 % (0-3); HEMOGLOBIN 10.6 g/dL (13.0-17.5); LYMPH # 0.7 x10^3/uL (1.0-4.8); LYMPH % 5 % (24-48); MEAN CORPUSCULAR HEMOGLOBIN 31 pg (25-35); MEAN CORPUSCULAR HGB CONC 33 g/dL (31-37); MEAN CORPUSCULAR VOLUME 93 fL (79-100); MONO # 1.2 x10^3/uL (0.0-1.1); MONO % 8 % (0-9); NEUT # 13.2 x10^3uL (1.8-7.7); NEUT % 86 % (31-73); PLATELET COUNT 177 x10^3/uL (140-400); RED BLOOD COUNT 3.45 x10^6/uL (4.30-5.70); RED CELL DISTRIBUTION WIDTH 15.3 % (11.5-14.5); WHITE BLOOD COUNT 15.3 x10^3/uL (4.0-11.0)
[2018-07-22 12:30] LABS: CALCIUM 7.8 mg/dL (8.5-10.1); CREATININE 1.4 mg/dL (0.7-1.3); GFR 49.4; POTASSIUM 4.6 mmol/L (3.5-5.1)
[2018-07-22 12:35] LABS: ALBUMIN 2.2 g/dL (3.4-5.0); ALBUMIN/GLOBULIN RATIO 0.7 (1.0-1.7); MAGNESIUM 2.1 mg/dL (1.8-2.4); TOTAL BILIRUBIN 1.2 mg/dL (0.2-1.0); TOTAL PROTEIN 5.3 g/dL (6.4-8.2)
[2018-07-22 12:40] LABS: CREATINE KINASE 20 U/L (39-308)
[2018-07-22 12:57] LABS: PROTHROMBIN TIME PATIENT 14.4 SEC (11.7-14.0)
[2018-07-22 13:04] LABS: % BANDS 7 % (0-9); % BASOS 1 % (0-3); % EOS 2 % (0-5); % LYMPHS 2 % (24-48); % MONOS 8 % (0-10); % SEGS 80 % (35-66); ANISOCYTOSIS SLIGHT; OVALOCYTES FEW; PLT ESTIMATE ADEQUATE (ADEQUATE)
--- NOTE | 2018-07-22 13:28 | EKG ---
[facility] [address] [place] [address] Test Date: 2018-07-22 Test Time: 12:24:40 Pat Name: RADHA CASILLAS Department: Room: Gender: M Lsw: : 1945 Requested By: ANA CRUZ Order Number: [id number] Reading MD: Mac Klein MD Measurements Intervals Termo Rate: 80 P: SD: QRS: -149 QRSD: 24 T: -101 QT: 336 QTc: 390 Interpretive Statements ATRIAL FIBRILLATION V-PACED Electronically Signed On 07-23-2018 12:45:03 CDT by Mac Klein MD
[2018-07-22] MEDS ORDERED: IV NORMAL SALINE 500ML BAG 500 ML IV ONE (13:30)
[2018-07-22] MEDS ORDERED: methylPREDNISolone SOD SUCC PF 125 MG/2 ML VIAL. IV ONE (15:00)
[2018-07-22] MEDS ORDERED: IPRATRPIUM/ALBUTEROL 0.5/2.5MG 3 ML NEBU. NEB ONE (15:00)
--- NOTE | 2018-07-22 15:39 | PHYS DOC ---
Past Medical History Past Medical History: Arrhythmia, CAD, COPD, High Cholesterol Additional Past Medical Histor: shingles Past Surgical History: Coronary Bypass Surgery, Pacemaker Additional Past Surgical Histo: pacemaker/defibrillator Alcohol Use: None Drug Use: None Adult General Chief Complaint Chief Complaint: SHORTNESS OF BREATH HPI HPI Patient is a 73 year old male presented to the ER TODAY FOR shortness of air and weakness since yesterday. HE denies any chest pain, no fever. Patient was admitted here on July 09 for COPD exacerbation, CHF exacerbation. His ejection fraction was 20%. Review of Systems Review of Systems Constitutional: Denies fever or chills. POSITIVE FOR GENERALIZED WEAKNESS. Eyes: Denies change in visual acuity, redness, or eye pain [] HENT: Denies nasal congestion or sore throat [] Respiratory: positive for shortness of breath [] Cardiovascular: No additional information not addressed in HPI [] GI: Denies abdominal pain, nausea, vomiting, bloody stools or diarrhea [] : Denies dysuria or hematuria [] Musculoskeletal: Denies back pain or joint pain [] Integument: Denies rash or skin lesions [] Neurologic: Denies headache, focal weakness or sensory changes [] Endocrine: Denies polyuria or polydipsia [] All other systems were reviewed and found to be within normal limits, except as documented in this note. Current Medications Current Medications Current Medications Medications (Trade) Dose Ordered Sig/Minerva Start Time Stop Time Status Last Admin Dose Admin Albuterol/ Ipratropium (Duoneb) 3 ml 1X ONCE 07/22/18 15:00 07/22/18 15:01 DC 07/22/18 15:46 3 ML Methylprednisolone Sodium Succinate (SOLU-Medrol 125MG VIAL) 125 mg 1X ONCE 07/22/18 15:00 07/22/18 15:01 DC 07/22/18 15:59 125 MG Sodium Chloride 500 ml @ 500 mls/hr 1X ONCE 07/22/18 13:30 07/22/18 14:29 DC 07/22/18 14:05 500 MLS/HR Allergies Allergies Allergies Coded Allergies Type Severity Reaction Last Updated Verified No Known Drug Allergies 12/21/13 No Physical Exam Physical Exam Constitutional: Well developed, well nourished, no acute distress, non-toxic appearance. [] HENT: Normocephalic, atraumatic, bilateral external ears normal, oropharynx moist, no oral exudates, nose normal. [] Eyes: PERRLA, EOMI, conjunctiva normal, no discharge. [] Neck: Normal range of motion, no tenderness, supple, no stridor. [] Cardiovascular:Heart rate regular rhythm, no murmur [] Lungs & Thorax: Bilateral breath sounds WITH RALES. Abdomen: Bowel sounds normal, soft, no tenderness, no masses, no pulsatile masses. [] Skin: Warm, dry, no erythema, no rash. [] Back: No tenderness, no CVA tenderness. [] Extremities: No tenderness, no cyanosis, no clubbing, ROM intact. BILATERAL LOWER EXTREMITIES EDEMA, PITTING 4 PLUS. Neurologic: Alert and oriented X 3, normal motor function, normal sensory function, no focal deficits noted. [] Psychologic: Affect normal, judgement normal, mood normal. [] Current Patient Data Vital Signs Vital Signs Date Time Temp Pulse Resp B/P (MAP) Pulse Ox O2 Delivery O2 Flow Rate FiO2 07/22/18 15:04 80 21 110/62 (78) 98 Nasal Cannula 2.0 07/22/18 14:07 98.7 98.7 Lab Values Laboratory Tests Test 07/22/18 12:00 White Blood Count 15.3 x10^3/uL (4.0-11.0) H Red Blood Count 3.45 x10^6/uL (4.30-5.70) L Hemoglobin 10.6 g/dL (13.0-17.5) L Hematocrit 32.0 % (39.0-53.0) L Mean Corpuscular Volume 93 fL (79-100) Mean Corpuscular Hemoglobin 31 pg (25-35) Mean Corpuscular Hemoglobin Concent 33 g/dL (31-37) Red Cell Distribution Width 15.3 % (11.5-14.5) H Platelet Count 177 x10^3/uL (140-400) Neutrophils (%) (Auto) 86 % (31-73) H Lymphocytes (%) (Auto) 5 % (24-48) L Monocytes (%) (Auto) 8 % (0-9) Eosinophils (%) (Auto) 1 % (0-3) Basophils (%) (Auto) 0 % (0-3) Neutrophils # (Auto) 13.2 x10^3uL (1.8-7.7) H Lymphocytes # (Auto) 0.7 x10^3/uL (1.0-4.8) L Monocytes # (Auto) 1.2 x10^3/uL (0.0-1.1) H Eosinophils # (Auto) 0.1 x10^3/uL (0.0-0.7) Basophils # (Auto) 0.0 x10^3/uL (0.0-0.2) Segmented Neutrophils % 80 % (35-66) H Band Neutrophils % 7 % (0-9) Lymphocytes % 2 % (24-48) L Monocytes % 8 % (0-10) Eosinophils % 2 % (0-5) Basophils % 1 % (0-3) Platelet Estimate Adequate (ADEQUATE) Anisocytosis Slight Ovalocytes Few Prothrombin Time 14.4 SEC (11.7-14.0) H Prothrombin Time INR 1.2 (0.8-1.1) H Sodium Level 137 mmol/L (136-145) Potassium Level 4.6 mmol/L (3.5-5.1) Chloride Level 101 mmol/L (98-107) Carbon Dioxide Level 28 mmol/L (21-32) Anion Gap 8 (6-14) Blood Urea Nitrogen 22 mg/dL (8-26) Creatinine 1.4 mg/dL (0.7-1.3) H Estimated GFR (Cockcroft-Gault) 49.4 BUN/Creatinine Ratio 16 (6-20) Glucose Level 116 mg/dL (70-99) H Calcium Level 7.8 mg/dL (8.5-10.1) L Magnesium Level 2.1 mg/dL (1.8-2.4) Total Bilirubin 1.2 mg/dL (0.2-1.0) H Aspartate Amino Transferase (AST) 18 U/L (15-37) Alanine Aminotransferase (ALT) 26 U/L (16-63) Alkaline Phosphatase 63 U/L (46-116) Creatine Kinase 20 U/L (39-308) L Creatine Kinase MB (Mass) 1.3 ng/mL (0.0-3.6) Creatine Kinase MB Relative Index % (0-4) Troponin I Quantitative 0.034 ng/mL (0.000-0.055) JD-Htu-P-Type Natriuretic Peptide 3024 pg/mL (0-449) H Total Protein 5.3 g/dL (6.4-8.2) L Albumin 2.2 g/dL (3.4-5.0) L Albumin/Globulin Ratio 0.7 (1.0-1.7) L Lipase 177 U/L (73-393) Laboratory Tests 07/22/18 12:00 Laboratory Tests 07/22/18 12:00 EKG EKG EKG: RATE OF 80 BPM, AFIB[] Radiology/Procedures Radiology/Procedures [] Course & Med Decision Making Course & Med Decision Making Pertinent Labs and Imaging studies reviewed. (See chart for details) [] Dragon Disclaimer Dragon Disclaimer This electronic medical record was generated, in whole or in part, using a voice recognition dictation system. Departure Departure Impression: Primary Impression: CHF (congestive heart failure) Additional Impression: COPD exacerbation Disposition: ADMITTED INPATIENT Admitting Physician: Xie. Valle Condition: STABLE Referrals: JIMMIE BAUER Jr, MD (PCP) Problem Qualifiers ANA CRUZ DO Jul 22, 2018 15:39
--- NOTE | 2018-07-22 15:45 | PDOC1 ---
History and Physical Date of Admission Date of Admission 07/22/18 Identification/Chief Complaint Chief Complaint sob Source Source: Chart review, Patient History of Present Illness History of Present Illness 72-year-old male with end-stage COPD and multiple other medical problems presents with cough and sob for the past week. Pt was dced here 2 weeks ago by me for copd exacerbation. pt quit smoking for 30ys, home o2 [place] 2L, has copd, but not taking any meds since he was prescribed symbicort which will cost him >100bucks per month and some med instructions says not combined with symbicort. so he is not taking any meds for copd now. He has home o2 2-3L. Since he was dced, he started to feel sob again, with worsening cough and yellowish sputum. He also said he isnot on lasix at home, which he was last admission. When asked if he noticed that his legs are more swelling, he said no at beginning then later said yes. His BP was found low in ER today at 70s. EF 20% 2 weeks ago, has ICD. Past Medical History Cardiovascular: CAD, CHF, HTN, Hyperlipidemia Pulmonary: COPD CENTRAL NERVOUS SYSTEM: Other GI: Diverticulosis, GERD Infectious disease: Other Renal/: Prostate Ca. Past Surgical History Past Surgical History: Pacemaker, CABG, Other Family History Family History: Hypertension Social History Smoke: Quit ALCOHOL: none Drugs: None Current Problem List Problem List Problems Medical Problems: (1) CHF (congestive heart failure) Status: Acute Current Medications Current Medications Current Medications Medications (Trade) Dose Ordered Sig/Minerva Start Time Stop Time Status Last Admin Dose Admin Albuterol/ Ipratropium (Duoneb) 3 ml RTQID 07/22/18 16:00 07/23/18 15:59 Methylprednisolone Sodium Succinate (SOLU-Medrol 125MG VIAL) 125 mg 1X ONCE 07/22/18 15:00 07/22/18 15:01 DC Sodium Chloride 500 ml @ 500 mls/hr 1X ONCE 07/22/18 13:30 07/22/18 14:29 DC 07/22/18 14:05 500 MLS/HR Allergies Allergies Allergies Coded Allergies Type Severity Reaction Last Updated Verified No Known Drug Allergies 12/21/13 No ROS Review of System CONSTITUTIONAL: No fever or chills EYES: No recent changes SKIN: No rash or itching CARDIOVASCULAR: No chest pain, syncope, palpitations, or edema RESPIRATORY: No SOB or cough GASTROINTESTINAL: No nausea, vomiting or abdominal pain NEUROLOGICAL: No headaches or weakness ENDOCRINE: No cold or heat intolerance GENITOURINARY: No urgency or frequency of urination MUSCULOSKELETAL: No back pain or joint pain LYMPHATICS: No enlarged lymph nodes PSYCHIATRIC: No anxiety or depression Physical Exam Physical Exam GEN.: No apparent distress. Alert and oriented. HEENT: Head is normocephalic, atraumatic NECK: Supple. LUNGS: bl moderate decreased bs wo crackles and wheezing. HEART: RRR, S1, S2 present. Peripheral pulses intact ABDOMEN: Soft, nontender. Positive bowel sounds. EXTREMITIES: Without any cyanosis. BL legs 2+ edema. NEUROLOGIC: Normal speech, normal tone PSYCHIATRIC: Normal affect, normal mood. SKIN: No ulcerations Vitals Vitals Vital Signs Date Time Temp Pulse Resp B/P (MAP) Pulse Ox O2 Delivery O2 Flow Rate FiO2 07/22/18 14:07 98.7 75 22 88/53 (65) 97 Nasal Cannula 3.0 98.7 Labs Labs Laboratory Tests Test 07/22/18 12:00 White Blood Count 15.3 x10^3/uL (4.0-11.0) Red Blood Count 3.45 x10^6/uL (4.30-5.70) Hemoglobin 10.6 g/dL (13.0-17.5) Hematocrit 32.0 % (39.0-53.0) Mean Corpuscular Volume 93 fL (79-100) Mean Corpuscular Hemoglobin 31 pg (25-35) Mean Corpuscular Hemoglobin Concent 33 g/dL (31-37) Red Cell Distribution Width 15.3 % (11.5-14.5) Platelet Count 177 x10^3/uL (140-400) Neutrophils (%) (Auto) 86 % (31-73) Lymphocytes (%) (Auto) 5 % (24-48) Monocytes (%) (Auto) 8 % (0-9) Eosinophils (%) (Auto) 1 % (0-3) Basophils (%) (Auto) 0 % (0-3) Neutrophils # (Auto) 13.2 x10^3uL (1.8-7.7) Lymphocytes # (Auto) 0.7 x10^3/uL (1.0-4.8) Monocytes # (Auto) 1.2 x10^3/uL (0.0-1.1) Eosinophils # (Auto) 0.1 x10^3/uL (0.0-0.7) Basophils # (Auto) 0.0 x10^3/uL (0.0-0.2) Segmented Neutrophils % 80 % (35-66) Band Neutrophils % 7 % (0-9) Lymphocytes % 2 % (24-48) Monocytes % 8 % (0-10) Eosinophils % 2 % (0-5) Basophils % 1 % (0-3) Platelet Estimate Adequate (ADEQUATE) Anisocytosis Slight Ovalocytes Few Prothrombin Time 14.4 SEC (11.7-14.0) Prothromb Time International Ratio 1.2 (0.8-1.1) Sodium Level 137 mmol/L (136-145) Potassium Level 4.6 mmol/L (3.5-5.1) Chloride Level 101 mmol/L (98-107) Carbon Dioxide Level 28 mmol/L (21-32) Anion Gap 8 (6-14) Blood Urea Nitrogen 22 mg/dL (8-26) Creatinine 1.4 mg/dL (0.7-1.3) Estimated GFR (Cockcroft-Gault) 49.4 BUN/Creatinine Ratio 16 (6-20) Glucose Level 116 mg/dL (70-99) Calcium Level 7.8 mg/dL (8.5-10.1) Magnesium Level 2.1 mg/dL (1.8-2.4) Total Bilirubin 1.2 mg/dL (0.2-1.0) Aspartate Amino Transf (AST/SGOT) 18 U/L (15-37) Alanine Aminotransferase (ALT/SGPT) 26 U/L (16-63) Alkaline Phosphatase 63 U/L (46-116) Creatine Kinase 20 U/L (39-308) Creatine Kinase MB (Mass) 1.3 ng/mL (0.0-3.6) Creatine Kinase MB Relative Index % (0-4) Troponin I Quantitative 0.034 ng/mL (0.000-0.055) VP-Ocp-C-Type Natriuretic Peptide 3024 pg/mL (0-449) Total Protein 5.3 g/dL (6.4-8.2) Albumin 2.2 g/dL (3.4-5.0) Albumin/Globulin Ratio 0.7 (1.0-1.7) Lipase 177 U/L (73-393) Laboratory Tests Test 07/22/18 12:00 White Blood Count 15.3 x10^3/uL (4.0-11.0) Red Blood Count 3.45 x10^6/uL (4.30-5.70) Hemoglobin 10.6 g/dL (13.0-17.5) Hematocrit 32.0 % (39.0-53.0) Mean Corpuscular Volume 93 fL (79-100) Mean Corpuscular Hemoglobin 31 pg (25-35) Mean Corpuscular Hemoglobin Concent 33 g/dL (31-37) Red Cell Distribution Width 15.3 % (11.5-14.5) Platelet Count 177 x10^3/uL (140-400) Neutrophils (%) (Auto) 86 % (31-73) Lymphocytes (%) (Auto) 5 % (24-48) Monocytes (%) (Auto) 8 % (0-9) Eosinophils (%) (Auto) 1 % (0-3) Basophils (%) (Auto) 0 % (0-3) Neutrophils # (Auto) 13.2 x10^3uL (1.8-7.7) Lymphocytes # (Auto) 0.7 x10^3/uL (1.0-4.8) Monocytes # (Auto) 1.2 x10^3/uL (0.0-1.1) Eosinophils # (Auto) 0.1 x10^3/uL (0.0-0.7) Basophils # (Auto) 0.0 x10^3/uL (0.0-0.2) Segmented Neutrophils % 80 % (35-66) Band Neutrophils % 7 % (0-9) Lymphocytes % 2 % (24-48) Monocytes % 8 % (0-10) Eosinophils % 2 % (0-5) Basophils % 1 % (0-3) Platelet Estimate Adequate (ADEQUATE) Anisocytosis Slight Ovalocytes Few Prothrombin Time 14.4 SEC (11.7-14.0) Prothromb Time International Ratio 1.2 (0.8-1.1) Sodium Level 137 mmol/L (136-145) Potassium Level 4.6 mmol/L (3.5-5.1) Chloride Level 101 mmol/L (98-107) Carbon Dioxide Level 28 mmol/L (21-32) Anion Gap 8 (6-14) Blood Urea Nitrogen 22 mg/dL (8-26) Creatinine 1.4 mg/dL (0.7-1.3) Estimated GFR (Cockcroft-Gault) 49.4 BUN/Creatinine Ratio 16 (6-20) Glucose Level 116 mg/dL (70-99) Calcium Level 7.8 mg/dL (8.5-10.1) Magnesium Level 2.1 mg/dL (1.8-2.4) Total Bilirubin 1.2 mg/dL (0.2-1.0) Aspartate Amino Transf (AST/SGOT) 18 U/L (15-37) Alanine Aminotransferase (ALT/SGPT) 26 U/L (16-63) Alkaline Phosphatase 63 U/L (46-116) Creatine Kinase 20 U/L (39-308) Creatine Kinase MB (Mass) 1.3 ng/mL (0.0-3.6) Creatine Kinase MB Relative Index % (0-4) Troponin I Quantitative 0.034 ng/mL (0.000-0.055) LE-Mhi-W-Type Natriuretic Peptide 3024 pg/mL (0-449) Total Protein 5.3 g/dL (6.4-8.2) Albumin 2.2 g/dL (3.4-5.0) Albumin/Globulin Ratio 0.7 (1.0-1.7) Lipase 177 U/L (73-393) VTE Prophylaxis Ordered VTE Prophylaxis Devices: Yes VTE Pharmacological Prophylaxi: Yes Assessment/Plan Assessment/Plan acute on chronic hypoxic resp failure with COPD and CHF exacerbation copd exacerbation systolic CHF exacerbation Bronchitis h/o CAD with stents, CABG HTN with low BP nasal drip PPM/ICD mild malnutrition HLD plan: pulm, card consult need verify home meds would like to give lasix if bp is good, got 500cc bolus in ER for low BP hold HTN meds for now, should restart when bp is better add duoneb , albuterol for now, prednisone 40mg daily cough meds pt took levaquin last admission. add doxy for now dvt ppx FERNANDO BELLO MD Jul 22, 2018 15:44
[2018-07-22] MEDS: IPRATRPIUM/ALBUTEROL 0.5/2.5MG 3 ML NEBU. NEB SCH ×2 (15:56→19:32)
[2018-07-22] MEDS ORDERED: MORPHINE SULFATE 2 MG/ML VIAL. IV PRN (16:00)
[2018-07-22] MEDS ORDERED: ACETAMINOPHEN 325 MG TABLET. PO PRN (16:00)
[2018-07-22] MEDS ORDERED: ONDANSETRON PF 4 MG/2 ML VIAL. IV PRN (16:00)
[2018-07-22] MEDS ORDERED: IPRATRPIUM/ALBUTEROL 0.5/2.5MG 3 ML NEBU. NEB SCH (16:00)
[2018-07-22] MEDS ORDERED: ALBUTEROL SULFATE 2.5 MG/3 ML NEBU. NEB PRN (16:00)
[2018-07-22] MEDS ORDERED: DOCUSATE SODIUM 100 MG CAPSULE. PO PRN (16:00)
[2018-07-22] MEDS ORDERED: traMADol 50 MG TABLET PO PRN (16:00)
[2018-07-22 17:20] VITALS: BP 99/54
[2018-07-22 17:42] LABS: INFLUENZA A PATIENT NEGATIVE (NEGATIVE); INFLUENZA B PATIENT NEGATIVE (NEGATIVE)
[2018-07-22] MEDS ORDERED: INFLUENZA VAX SCREEN BY RX. MC ONE (18:00)
[2018-07-22 19:00] VITALS: BP 98/55
[2018-07-22] MEDS: DOXYCYCLINE HYCLATE 100 MG TABLET PO SCH (20:59)
[2018-07-22] MEDS: FAMOTIDINE 20 MG TABLET. PO SCH (20:59)
[2018-07-22 23:00] VITALS: BP 111/55
[2018-07-23] VITALS (7 sets, daily range): BP systolic 95–152; BP diastolic 59–72
[2018-07-23 05:42] LABS: BASO % 0 % (0-3); EOS % 0 % (0-3); HEMATOCRIT 29.9 % (39.0-53.0); HEMOGLOBIN 10.1 g/dL (13.0-17.5); LYMPH # 0.4 x10^3/uL (1.0-4.8); LYMPH % 4 % (24-48); MEAN CORPUSCULAR HEMOGLOBIN 31 pg (25-35); MEAN CORPUSCULAR HGB CONC 34 g/dL (31-37); MEAN CORPUSCULAR VOLUME 92 fL (79-100); MONO # 0.2 x10^3/uL (0.0-1.1); MONO % 2 % (0-9); NEUT # 8.7 x10^3uL (1.8-7.7); NEUT % 94 % (31-73); PLATELET COUNT 164 x10^3/uL (140-400); RED BLOOD COUNT 3.27 x10^6/uL (4.30-5.70); RED CELL DISTRIBUTION WIDTH 15.2 % (11.5-14.5); WHITE BLOOD COUNT 9.3 x10^3/uL (4.0-11.0)
[2018-07-23 05:55] LABS: CALCIUM 8.1 mg/dL (8.5-10.1); CREATININE 1.1 mg/dL (0.7-1.3); GFR 65.3; POTASSIUM 4.4 mmol/L (3.5-5.1)
[2018-07-23] MEDS: IPRATRPIUM/ALBUTEROL 0.5/2.5MG 3 ML NEBU. NEB SCH ×4 (08:31→19:22)
[2018-07-23] MEDS: DOXYCYCLINE HYCLATE 100 MG TABLET PO SCH ×2 (08:50→21:52)
[2018-07-23] MEDS: predniSONE 20 MG TABLET PO SCH (08:50)
--- NOTE | 2018-07-23 10:10 | PDOC ---
PROGRESS NOTES Chief Complaint Chief Complaint History of Present Illness History of Present Illness 72-year-old male with end-stage COPD and multiple other medical problems presents with cough and sob x 7 days dced here 2 weeks ago copd exacerbation. pt quit smoking for 30ys, home o2 [place] 2L, has copd, but not taking any meds since d/c He has home o2 2-3L. started to feel sob again, with worsening cough and yellowish sputum. not on lasix at home, which he was last admission. has le edema BP low in ER at 70s. EF 20% 2 weeks ago, ICD. Past Medical History Cardiovascular: CAD, CHF, HTN, Hyperlipidemia Pulmonary: COPD CENTRAL NERVOUS SYSTEM: Other GI: Diverticulosis, GERD Infectious disease: Other Renal/: Prostate Ca. History of Present Illness History of Present Illness Assessment/Plan Assessment/Plan acute on chronic hypoxic resp failure with COPD and CHF exacerbation copd exacerbation systolic CHF exacerbation Bronchitis h/o CAD with stents, CABG HTN with low BP nasal drip PPM/ICD mild malnutrition HLD plan: pulm, card consult need verify home meds lasix , 500cc bolus in ER for low BP hold HTN meds for now, should restart when bp is better duoneb , prednisone 40mg daily cough meds . add doxy dvt ppx Vitals Vitals Vital Signs Date Time Temp Pulse Resp B/P (MAP) Pulse Ox O2 Delivery O2 Flow Rate FiO2 07/23/18 08:32 85 Room Air 07/23/18 07:45 2.0 07/23/18 07:00 96.6 80 16 120/72 (88) 96.6 Physical Exam Physical Exam Physical Exam Physical Exam GEN.: No apparent distress. Alert and oriented. HEENT: Head is normocephalic, atraumatic NECK: Supple. LUNGS: bl moderate decreased bs wo crackles and wheezing. HEART: RRR, S1, S2 present. Peripheral pulses intact ABDOMEN: Soft, nontender. Positive bowel sounds. EXTREMITIES: Without any cyanosis. BL legs 2+ edema. NEUROLOGIC: Normal speech, normal tone PSYCHIATRIC: Normal affect, normal mood. SKIN: No ulcerations General: Alert, Oriented X3, Cooperative, mild distress Lungs: Clear Abdomen: Soft Extremities: No cyanosis Labs LABS Laboratory Tests Test 07/22/18 12:00 07/22/18 17:04 07/23/18 04:15 White Blood Count 15.3 x10^3/uL (4.0-11.0) 9.3 x10^3/uL (4.0-11.0) Red Blood Count 3.45 x10^6/uL (4.30-5.70) 3.27 x10^6/uL (4.30-5.70) Hemoglobin 10.6 g/dL (13.0-17.5) 10.1 g/dL (13.0-17.5) Hematocrit 32.0 % (39.0-53.0) 29.9 % (39.0-53.0) Mean Corpuscular Volume 93 fL (79-100) 92 fL (79-100) Mean Corpuscular Hemoglobin 31 pg (25-35) 31 pg (25-35) Mean Corpuscular Hemoglobin Concent 33 g/dL (31-37) 34 g/dL (31-37) Red Cell Distribution Width 15.3 % (11.5-14.5) 15.2 % (11.5-14.5) Platelet Count 177 x10^3/uL (140-400) 164 x10^3/uL (140-400) Neutrophils (%) (Auto) 86 % (31-73) 94 % (31-73) Lymphocytes (%) (Auto) 5 % (24-48) 4 % (24-48) Monocytes (%) (Auto) 8 % (0-9) 2 % (0-9) Eosinophils (%) (Auto) 1 % (0-3) 0 % (0-3) Basophils (%) (Auto) 0 % (0-3) 0 % (0-3) Neutrophils # (Auto) 13.2 x10^3uL (1.8-7.7) 8.7 x10^3uL (1.8-7.7) Lymphocytes # (Auto) 0.7 x10^3/uL (1.0-4.8) 0.4 x10^3/uL (1.0-4.8) Monocytes # (Auto) 1.2 x10^3/uL (0.0-1.1) 0.2 x10^3/uL (0.0-1.1) Eosinophils # (Auto) 0.1 x10^3/uL (0.0-0.7) 0.0 x10^3/uL (0.0-0.7) Basophils # (Auto) 0.0 x10^3/uL (0.0-0.2) 0.0 x10^3/uL (0.0-0.2) Segmented Neutrophils % 80 % (35-66) Band Neutrophils % 7 % (0-9) Lymphocytes % 2 % (24-48) Monocytes % 8 % (0-10) Eosinophils % 2 % (0-5) Basophils % 1 % (0-3) Platelet Estimate Adequate (ADEQUATE) Anisocytosis Slight Ovalocytes Few Prothrombin Time 14.4 SEC (11.7-14.0) Prothromb Time International Ratio 1.2 (0.8-1.1) Sodium Level 137 mmol/L (136-145) 137 mmol/L (136-145) Potassium Level 4.6 mmol/L (3.5-5.1) 4.4 mmol/L (3.5-5.1) Chloride Level 101 mmol/L (98-107) 103 mmol/L (98-107) Carbon Dioxide Level 28 mmol/L (21-32) 27 mmol/L (21-32) Anion Gap 8 (6-14) 7 (6-14) Blood Urea Nitrogen 22 mg/dL (8-26) 22 mg/dL (8-26) Creatinine 1.4 mg/dL (0.7-1.3) 1.1 mg/dL (0.7-1.3) Estimated GFR (Cockcroft-Gault) 49.4 65.3 BUN/Creatinine Ratio 16 (6-20) Glucose Level 116 mg/dL (70-99) 197 mg/dL (70-99) Calcium Level 7.8 mg/dL (8.5-10.1) 8.1 mg/dL (8.5-10.1) Magnesium Level 2.1 mg/dL (1.8-2.4) Total Bilirubin 1.2 mg/dL (0.2-1.0) Aspartate Amino Transf (AST/SGOT) 18 U/L (15-37) Alanine Aminotransferase (ALT/SGPT) 26 U/L (16-63) Alkaline Phosphatase 63 U/L (46-116) Creatine Kinase 20 U/L (39-308) Creatine Kinase MB (Mass) 1.3 ng/mL (0.0-3.6) Creatine Kinase MB Relative Index % (0-4) Troponin I Quantitative 0.034 ng/mL (0.000-0.055) DO-Gvk-L-Type Natriuretic Peptide 3024 pg/mL (0-449) Total Protein 5.3 g/dL (6.4-8.2) Albumin 2.2 g/dL (3.4-5.0) Albumin/Globulin Ratio 0.7 (1.0-1.7) Lipase 177 U/L (73-393) Influenza Type A Antigen Negative (NEGATIVE) Influenza Type B Antigen Negative (NEGATIVE) Assessment and Plan Assessmemt and Plan Problems Medical Problems: (1) CHF (congestive heart failure) Status: Acute Comment Review of Relevant I have reviewed the following items jay (where applicable) has been applied. Labs Laboratory Tests Test 07/22/18 12:00 07/22/18 17:04 07/23/18 04:15 White Blood Count 15.3 x10^3/uL (4.0-11.0) 9.3 x10^3/uL (4.0-11.0) Red Blood Count 3.45 x10^6/uL (4.30-5.70) 3.27 x10^6/uL (4.30-5.70) Hemoglobin 10.6 g/dL (13.0-17.5) 10.1 g/dL (13.0-17.5) Hematocrit 32.0 % (39.0-53.0) 29.9 % (39.0-53.0) Mean Corpuscular Volume 93 fL (79-100) 92 fL (79-100) Mean Corpuscular Hemoglobin 31 pg (25-35) 31 pg (25-35) Mean Corpuscular Hemoglobin Concent 33 g/dL (31-37) 34 g/dL (31-37) Red Cell Distribution Width 15.3 % (11.5-14.5) 15.2 % (11.5-14.5) Platelet Count 177 x10^3/uL (140-400) 164 x10^3/uL (140-400) Neutrophils (%) (Auto) 86 % (31-73) 94 % (31-73) Lymphocytes (%) (Auto) 5 % (24-48) 4 % (24-48) Monocytes (%) (Auto) 8 % (0-9) 2 % (0-9) Eosinophils (%) (Auto) 1 % (0-3) 0 % (0-3) Basophils (%) (Auto) 0 % (0-3) 0 % (0-3) Neutrophils # (Auto) 13.2 x10^3uL (1.8-7.7) 8.7 x10^3uL (1.8-7.7) Lymphocytes # (Auto) 0.7 x10^3/uL (1.0-4.8) 0.4 x10^3/uL (1.0-4.8) Monocytes # (Auto) 1.2 x10^3/uL (0.0-1.1) 0.2 x10^3/uL (0.0-1.1) Eosinophils # (Auto) 0.1 x10^3/uL (0.0-0.7) 0.0 x10^3/uL (0.0-0.7) Basophils # (Auto) 0.0 x10^3/uL (0.0-0.2) 0.0 x10^3/uL (0.0-0.2) Segmented Neutrophils % 80 % (35-66) Band Neutrophils % 7 % (0-9) Lymphocytes % 2 % (24-48) Monocytes % 8 % (0-10) Eosinophils % 2 % (0-5) Basophils % 1 % (0-3) Platelet Estimate Adequate (ADEQUATE) Anisocytosis Slight Ovalocytes Few Prothrombin Time 14.4 SEC (11.7-14.0) Prothromb Time International Ratio 1.2 (0.8-1.1) Sodium Level 137 mmol/L (136-145) 137 mmol/L (136-145) Potassium Level 4.6 mmol/L (3.5-5.1) 4.4 mmol/L (3.5-5.1) Chloride Level 101 mmol/L (98-107) 103 mmol/L (98-107) Carbon Dioxide Level 28 mmol/L (21-32) 27 mmol/L (21-32) Anion Gap 8 (6-14) 7 (6-14) Blood Urea Nitrogen 22 mg/dL (8-26) 22 mg/dL (8-26) Creatinine 1.4 mg/dL (0.7-1.3) 1.1 mg/dL (0.7-1.3) Estimated GFR (Cockcroft-Gault) 49.4 65.3 BUN/Creatinine Ratio 16 (6-20) Glucose Level 116 mg/dL (70-99) 197 mg/dL (70-99) Calcium Level 7.8 mg/dL (8.5-10.1) 8.1 mg/dL (8.5-10.1) Magnesium Level 2.1 mg/dL (1.8-2.4) Total Bilirubin 1.2 mg/dL (0.2-1.0) Aspartate Amino Transf (AST/SGOT) 18 U/L (15-37) Alanine Aminotransferase (ALT/SGPT) 26 U/L (16-63) Alkaline Phosphatase 63 U/L (46-116) Creatine Kinase 20 U/L (39-308) Creatine Kinase MB (Mass) 1.3 ng/mL (0.0-3.6) Creatine Kinase MB Relative Index % (0-4) Troponin I Quantitative 0.034 ng/mL (0.000-0.055) FG-Hun-P-Type Natriuretic Peptide 3024 pg/mL (0-449) Total Protein 5.3 g/dL (6.4-8.2) Albumin 2.2 g/dL (3.4-5.0) Albumin/Globulin Ratio 0.7 (1.0-1.7) Lipase 177 U/L (73-393) Influenza Type A Antigen Negative (NEGATIVE) Influenza Type B Antigen Negative (NEGATIVE) Laboratory Tests Test 07/22/18 12:00 07/22/18 17:04 07/23/18 04:15 White Blood Count 15.3 x10^3/uL (4.0-11.0) 9.3 x10^3/uL (4.0-11.0) Red Blood Count 3.45 x10^6/uL (4.30-5.70) 3.27 x10^6/uL (4.30-5.70) Hemoglobin 10.6 g/dL (13.0-17.5) 10.1 g/dL (13.0-17.5) Hematocrit 32.0 % (39.0-53.0) 29.9 % (39.0-53.0) Mean Corpuscular Volume 93 fL (79-100) 92 fL (79-100) Mean Corpuscular Hemoglobin 31 pg (25-35) 31 pg (25-35) Mean Corpuscular Hemoglobin Concent 33 g/dL (31-37) 34 g/dL (31-37) Red Cell Distribution Width 15.3 % (11.5-14.5) 15.2 % (11.5-14.5) Platelet Count 177 x10^3/uL (140-400) 164 x10^3/uL (140-400) Neutrophils (%) (Auto) 86 % (31-73) 94 % (31-73) Lymphocytes (%) (Auto) 5 % (24-48) 4 % (24-48) Monocytes (%) (Auto) 8 % (0-9) 2 % (0-9) Eosinophils (%) (Auto) 1 % (0-3) 0 % (0-3) Basophils (%) (Auto) 0 % (0-3) 0 % (0-3) Neutrophils # (Auto) 13.2 x10^3uL (1.8-7.7) 8.7 x10^3uL (1.8-7.7) Lymphocytes # (Auto) 0.7 x10^3/uL (1.0-4.8) 0.4 x10^3/uL (1.0-4.8) Monocytes # (Auto) 1.2 x10^3/uL (0.0-1.1) 0.2 x10^3/uL (0.0-1.1) Eosinophils # (Auto) 0.1 x10^3/uL (0.0-0.7) 0.0 x10^3/uL (0.0-0.7) Basophils # (Auto) 0.0 x10^3/uL (0.0-0.2) 0.0 x10^3/uL (0.0-0.2) Segmented Neutrophils % 80 % (35-66) Band Neutrophils % 7 % (0-9) Lymphocytes % 2 % (24-48) Monocytes % 8 % (0-10) Eosinophils % 2 % (0-5) Basophils % 1 % (0-3) Platelet Estimate Adequate (ADEQUATE) Anisocytosis Slight Ovalocytes Few Prothrombin Time 14.4 SEC (11.7-14.0) Prothromb Time International Ratio 1.2 (0.8-1.1) Sodium Level 137 mmol/L (136-145) 137 mmol/L (136-145) Potassium Level 4.6 mmol/L (3.5-5.1) 4.4 mmol/L (3.5-5.1) Chloride Level 101 mmol/L (98-107) 103 mmol/L (98-107) Carbon Dioxide Level 28 mmol/L (21-32) 27 mmol/L (21-32) Anion Gap 8 (6-14) 7 (6-14) Blood Urea Nitrogen 22 mg/dL (8-26) 22 mg/dL (8-26) Creatinine 1.4 mg/dL (0.7-1.3) 1.1 mg/dL (0.7-1.3) Estimated GFR (Cockcroft-Gault) 49.4 65.3 BUN/Creatinine Ratio 16 (6-20) Glucose Level 116 mg/dL (70-99) 197 mg/dL (70-99) Calcium Level 7.8 mg/dL (8.5-10.1) 8.1 mg/dL (8.5-10.1) Magnesium Level 2.1 mg/dL (1.8-2.4) Total Bilirubin 1.2 mg/dL (0.2-1.0) Aspartate Amino Transf (AST/SGOT) 18 U/L (15-37) Alanine Aminotransferase (ALT/SGPT) 26 U/L (16-63) Alkaline Phosphatase 63 U/L (46-116) Creatine Kinase 20 U/L (39-308) Creatine Kinase MB (Mass) 1.3 ng/mL (0.0-3.6) Creatine Kinase MB Relative Index % (0-4) Troponin I Quantitative 0.034 ng/mL (0.000-0.055) CJ-Lux-Q-Type Natriuretic Peptide 3024 pg/mL (0-449) Total Protein 5.3 g/dL (6.4-8.2) Albumin 2.2 g/dL (3.4-5.0) Albumin/Globulin Ratio 0.7 (1.0-1.7) Lipase 177 U/L (73-393) Influenza Type A Antigen Negative (NEGATIVE) Influenza Type B Antigen Negative (NEGATIVE) Medications Current Medications Sodium Chloride 500 ml @ 500 mls/hr 1X ONCE IV Last administered on at 14:05; Start 07/22/18 at 13:30; Stop 07/22/18 at 14:29; Status DC Methylprednisolone Sodium Succinate (SOLU-Medrol 125MG VIAL) 125 mg 1X ONCE IV Last administered on 07/22/18at 15:59; Start 07/22/18 at 15:00; Stop 07/22/18 at 15:01; Status DC Albuterol/ Ipratropium (Duoneb) 3 ml 1X ONCE NEB Last administered on at 15:46; Start 07/22/18 at 15:00; Stop 07/22/18 at 15:01; Status DC Albuterol/ Ipratropium (Duoneb) 3 ml RTQID NEB Last administered on 07/22/18at 15:53; Start 07/22/18 at 16:00; Stop 07/22/18 at 16:00; Status DC Acetaminophen (Tylenol) 650 mg PRN Q6HRS PRN PO FEVER; Start 07/22/18 at 16:00 Ondansetron HCl (Zofran) 4 mg PRN Q6HRS PRN IV NAUSEA/VOMITING; Start 07/22/18 at 16:00 Morphine Sulfate (Morphine Sulfate) 2 mg PRN Q2HR PRN IV MODERATE TO SEVERE PAIN; Start 07/22/18 at 16:00 Tramadol HCl (Ultram) 50 mg PRN Q6HRS PRN PO MILD TO MODERATE PAIN; Start 07/22 at 16:00 Docusate Sodium (Colace) 100 mg PRN DAILY PRN PO CONSTIPATION; Start 07/22/18 at 16:00 Albuterol/ Ipratropium (Duoneb) 3 ml RTQID NEB Last administered on 07/23/18at 08:31; Start 07/22/18 at 16:00 Albuterol Sulfate (Ventolin Neb Soln) 2.5 mg PRN Q2HR PRN NEB SHORTNESS OF BREATH; Start 07/22/18 at 16:00 Guaifenesin (Mucinex) 600 mg BID PO Last administered on 07/23/18at 08:50; Start 07/22/18 at 21:00 Doxycycline Hyclate (Vibra-Tab) 100 mg BID PO Last administered on 07/23/18at 08 :50; Start 07/22/18 at 21:00 Prednisone (Prednisone) 40 mg DAILY PO Last administered on 07/23/18at 08:50; Start 07/23/18 at 09:00 Famotidine (Pepcid) 20 mg QHS PO Last administered on 07/22/18at 20:59; Start at 21:00 Info (Do NOT chart on this placeholder) 1 each 1X ONCE MC ; Start 07/22/18 at 18:00; Stop 07/22/18 at 18:01; Status UNV Influenza Virus Vaccine (Afluria Trivalent [id number] Syringe) 0.5 ml ONCE ONCE VAX IM Last administered on 07/22/18at 21:02; Start 07/22/18 at 18:30; Stop at 18:31; Status DC Active Scripts Active Famotidine 20 Mg Tablet 20 Mg PO QHS 14 Days Mucinex (Guaifenesin) 600 Mg Tablet.er 600 Mg PO BID 10 Days Benzonatate 100 Mg Capsule 100 Mg PO [id number] 10 Days Cetirizine Hcl 10 Mg Tablet 10 Mg PO DAILY 30 Days Lisinopril 10 Mg Tablet 10 Mg PO DAILY Furosemide 40 Mg Tablet 40 Mg PO DAILY Clopidogrel (Clopidogrel Bisulfate) 75 Mg Tablet 75 Mg PO DAILYWBKFT Carvedilol 3.125 Mg Tablet 3.125 Mg PO BIDWMEALS Aspirin Ec (Aspirin) 325 Mg Tablet. 325 Mg PO DAILYWBKFT Reported Lovastatin 40 Mg Tablet 1 Tab PO DAILY Neurontin (Gabapentin) 300 Mg Capsule 300 Mg PO QID Vitals/I & O Vital Sign - Last 24 Hours 07/22/18 07/22/18 07/22/18 07/22/18 11:28 11:34 12:05 12:12 Pulse 80 80 80 Resp 23 22 22 B/P (MAP) 86/52 (63) 84/47 (59) 83/49 (60) 80/47 (58) Pulse Ox 98 98 98 O2 Delivery Nasal Cannula Nasal Cannula Nasal Cannula O2 Flow Rate 2.0 2.0 2.0 07/22/18 07/22/18 07/22/18 07/22/18 12:34 13:04 13:34 14:04 Pulse 80 80 80 80 Resp 22 23 24 22 B/P (MAP) 77/51 (60) 86/57 (67) 106/55 (72) 111/62 (78) Pulse Ox 98 97 97 96 O2 Delivery Nasal Cannula Nasal Cannula Nasal Cannula Nasal Cannula O2 Flow Rate 2.0 2.0 2.0 2.0 07/22/18 07/22/18 07/22/18 07/22/18 14:07 14:35 15:04 15:34 Temp 98.7 98.7 Pulse 75 80 80 80 Resp 22 21 21 22 B/P (MAP) 88/53 (65) 104/58 (73) 110/62 (78) 106/54 (71) Pulse Ox 97 97 98 97 O2 Delivery Nasal Cannula Nasal Cannula Nasal Cannula Nasal Cannula O2 Flow Rate 3.0 2.0 2.0 2.0 07/22/18 07/22/1807/22/07/22/18 15:48 15:53 16:17 16:47 Pulse 80 80 Resp 18 21 B/P (MAP) 96/56 (69) 101/52 (68) Pulse Ox 96 94 98 98 O2 Delivery Nasal Cannula Nasal Cannula Nasal Cannula Nasal Cannula O2 Flow Rate 2.0 2.0 2.0 2.0 07/22/18 07/22/18 07/22/18 07/22/18 17:13 17:20 17:39 19:00 Temp 97.9 99.5 97.9 99.5 Pulse 80 80 76 Resp 21 18 18 B/P (MAP) 99/52 (68) 99/54 (69) 98/55 (69) Pulse Ox 97 95 90 O2 Delivery Nasal Cannula Nasal Cannula Nasal Cannula Nasal Cannula O2 Flow Rate 2.0 2.0 2.0 1.5 07/22/18 07/22/18 07/22/18 07/23/18 19:33 20:00 23:00 03:00 Temp 97.7 96.1 97.7 96.1 Pulse 81 80 Resp 18 18 B/P (MAP) 111/55 (73) 108/66 (80) Pulse Ox 91 94 95 O2 Delivery Nasal Cannula Nasal Cannula Nasal Cannula Nasal Cannula O2 Flow Rate 1.5 1.5 2.0 2.0 07/23/18 07/23/18 07/23/18 07:00 07:45 08:32 Temp 96.6 96.6 Pulse 80 Resp 16 B/P (MAP) 120/72 (88) Pulse Ox 95 85 O2 Delivery Nasal Cannula Nasal Cannula Room Air O2 Flow Rate 2.0 Intake and Output 07/22/18 07/22/18 07/23/18 15:00 23:00 07:00 Intake Total 180 ml Output Total 750 ml Balance 180 ml -750 ml NISH PAYAN MD Jul 23, 2018 10:10
--- NOTE | 2018-07-23 11:04 | RAD ---
EXAM: PORTABLE CHEST 1V AP View of the chest DATE: 07/22/2018 12:09 PM INDICATION: Shortness of breath COMPARISON: 07/07/2018, 12/19/15 FINDINGS: Cardiac generator pack obscures a portion left chest with leads in stable position. Cardiomediastinal silhouette is stable. Atherosclerotic calcifications of aorta is noted. Bilateral emphysematous changes are seen including bullous change in the right upper lung. New/increased opacity in the left upper lung and left midlung suspicious for developing consolidative process such as pneumonia. No pleural effusion or pneumothorax. IMPRESSION: 1. New/increasing opacities in the left upper lung and left midlung favored to represent consolidative process such as pneumonia. Electronically signed by: Enmanuel Echevarria MD (07/23/2018 11:00 AM) [email or web address]
--- NOTE | 2018-07-23 12:10 | PDOC2 ---
CARDIAC CONSULT DATE OF CONSULT Date of Consult DATE: 07/23/18 TIME: 1020 REASON FOR CONSULT Reason for Consult: CHF REFERRING PHYSICIAN Referring Physician: Dane SOURCE Source: Chart review, Patient HISTORY OF PRESENT ILLNESS HISTORY OF PRESENT ILLNESS This is a pleasant 73 yo male admitted for complains of SOA. Pt lives with spouse. He has been having GUILLEN but none so far at rest. He intermittently uses his O2 supplement at 2LPM. Positive for leg swelling and orthopnea but no significant coughing or wheezing and denies any palpitations of chest pain. He has been having decreased appetite but no nausea, vomiting or diarrhea. He drinks approximately over 1 L per day and has been urinating less. He has been compliant with his medications but unsure if he has been taking lasix at home. No fever or chills PAST MEDICAL HISTORY Cardiovascular: CAD, CHF, HTN, Hyperlipidemia, Other (ICM) Pulmonary: COPD GI: Diverticulosis, GERD Heme/Onc: Anemia NOS Hepatobiliary: No pertinent hx Psych: No pertinent hx Musculoskeletal: low back pain (sciatica), Osteoarthritis Rheumatologic: No pertinent hx Infectious disease: Herpes zoster (shingles) ENT: Allergic Rhinitis Renal/: Benign prostatic enlarg., Prostate Ca. 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)), CABG (1996), Other (PCI/ stent to LCx 12/2015) FAMILY HISTORY Family History: Coronary Artery Disease (mother and father) SOCIAL HISTORY Smoke: Quit (>10 yrs) ALCOHOL: none Drugs: None Lives: with Family CURRENT MEDICATIONS CURRENT MEDICATIONS Current Medications Medications (Trade) Dose Ordered Sig/Minerva Route PRN Reason Start Time Stop Time Status Last Admin Dose Admin Sodium Chloride 500 ml @ 500 mls/hr 1X ONCE IV 07/22/18 13:30 07/22/18 14:29 DC 07/22/18 14:05 Methylprednisolone Sodium Succinate (SOLU-Medrol 125MG VIAL) 125 mg 1X ONCE IV 07/22/18 15:00 07/22/18 15:01 DC 07/22/18 15:59 Albuterol/ Ipratropium (Duoneb) 3 ml 1X ONCE NEB 07/22/18 15:00 07/22/18 15:01 DC 07/22/18 15:46 Albuterol/ Ipratropium (Duoneb) 3 ml RTQID NEB 07/22/18 16:00 07/22/18 16:00 DC 07/22/18 15:53 Albuterol/ Ipratropium (Duoneb) 3 ml RTQID NEB 07/22/18 16:00 07/23/18 08:31 Guaifenesin (Mucinex) 600 mg BID PO 07/22/18 21:00 07/23/18 08:50 Doxycycline Hyclate (Vibra-Tab) 100 mg BID PO 07/22/18 21:00 07/23/18 08:50 Prednisone (Prednisone) 40 mg DAILY PO 07/23/18 09:00 07/23/18 08:50 Famotidine (Pepcid) 20 mg QHS PO 07/22/18 21:00 07/22/18 20:59 Influenza Virus Vaccine (Afluria Trivalent [id number] Syringe) 0.5 ml ONCE ONCE VAX IM 07/22/18 18:30 07/22/18 18:31 DC 07/22/18 21:02 ALLERGIES ALLERGIES: Coded Allergies: No Known Drug Allergies (Unverified , 12/21/13) ROS Review of System 14 point ROS evaluated with pertinent positives noted per HPI PHYSICAL EXAM General: Alert, Oriented X3, Cooperative, No acute distress HEENT: Atraumatic, Mucous membr. moist/pink Lungs: Other (basilar crackles) Heart: Regular rate (Paced ), Other (2/6 systolic murmur to apex) Extremities: No cyanosis, Other (2+ bilateral LE pitting edema) Skin: No breakdown, No significant lesion Neuro: Normal speech, Sensation intact Psych/Mental Status: Mental status NL, Mood NL MUSCULOSKELETAL: Osteoarthritic changes both hands VITALS VITALS Vital Signs Date Time Temp Pulse Resp B/P (MAP) Pulse Ox O2 Delivery O2 Flow Rate FiO2 07/23/18 08:32 85 Room Air 07/23/18 07:45 2.0 07/23/18 07:00 96.6 80 16 120/72 (88) 96.6 LABS Lab: Laboratory Tests Test 07/22/18 12:00 07/22/18 17:04 07/23/18 04:15 White Blood Count 15.3 x10^3/uL (4.0-11.0) 9.3 x10^3/uL (4.0-11.0) Red Blood Count 3.45 x10^6/uL (4.30-5.70) 3.27 x10^6/uL (4.30-5.70) Hemoglobin 10.6 g/dL (13.0-17.5) 10.1 g/dL (13.0-17.5) Hematocrit 32.0 % (39.0-53.0) 29.9 % (39.0-53.0) Mean Corpuscular Volume 93 fL (79-100) 92 fL (79-100) Mean Corpuscular Hemoglobin 31 pg (25-35) 31 pg (25-35) Mean Corpuscular Hemoglobin Concent 33 g/dL (31-37) 34 g/dL (31-37) Red Cell Distribution Width 15.3 % (11.5-14.5) 15.2 % (11.5-14.5) Platelet Count 177 x10^3/uL (140-400) 164 x10^3/uL (140-400) Neutrophils (%) (Auto) 86 % (31-73) 94 % (31-73) Lymphocytes (%) (Auto) 5 % (24-48) 4 % (24-48) Monocytes (%) (Auto) 8 % (0-9) 2 % (0-9) Eosinophils (%) (Auto) 1 % (0-3) 0 % (0-3) Basophils (%) (Auto) 0 % (0-3) 0 % (0-3) Neutrophils # (Auto) 13.2 x10^3uL (1.8-7.7) 8.7 x10^3uL (1.8-7.7) Lymphocytes # (Auto) 0.7 x10^3/uL (1.0-4.8) 0.4 x10^3/uL (1.0-4.8) Monocytes # (Auto) 1.2 x10^3/uL (0.0-1.1) 0.2 x10^3/uL (0.0-1.1) Eosinophils # (Auto) 0.1 x10^3/uL (0.0-0.7) 0.0 x10^3/uL (0.0-0.7) Basophils # (Auto) 0.0 x10^3/uL (0.0-0.2) 0.0 x10^3/uL (0.0-0.2) Segmented Neutrophils % 80 % (35-66) Band Neutrophils % 7 % (0-9) Lymphocytes % 2 % (24-48) Monocytes % 8 % (0-10) Eosinophils % 2 % (0-5) Basophils % 1 % (0-3) Platelet Estimate Adequate (ADEQUATE) Anisocytosis Slight Ovalocytes Few Prothrombin Time 14.4 SEC (11.7-14.0) Prothromb Time International Ratio 1.2 (0.8-1.1) Sodium Level 137 mmol/L (136-145) 137 mmol/L (136-145) Potassium Level 4.6 mmol/L (3.5-5.1) 4.4 mmol/L (3.5-5.1) Chloride Level 101 mmol/L (98-107) 103 mmol/L (98-107) Carbon Dioxide Level 28 mmol/L (21-32) 27 mmol/L (21-32) Anion Gap 8 (6-14) 7 (6-14) Blood Urea Nitrogen 22 mg/dL (8-26) 22 mg/dL (8-26) Creatinine 1.4 mg/dL (0.7-1.3) 1.1 mg/dL (0.7-1.3) Estimated GFR (Cockcroft-Gault) 49.4 65.3 BUN/Creatinine Ratio 16 (6-20) Glucose Level 116 mg/dL (70-99) 197 mg/dL (70-99) Calcium Level 7.8 mg/dL (8.5-10.1) 8.1 mg/dL (8.5-10.1) Magnesium Level 2.1 mg/dL (1.8-2.4) Total Bilirubin 1.2 mg/dL (0.2-1.0) Aspartate Amino Transf (AST/SGOT) 18 U/L (15-37) Alanine Aminotransferase (ALT/SGPT) 26 U/L (16-63) Alkaline Phosphatase 63 U/L (46-116) Creatine Kinase 20 U/L (39-308) Creatine Kinase MB (Mass) 1.3 ng/mL (0.0-3.6) Creatine Kinase MB Relative Index % (0-4) Troponin I Quantitative 0.034 ng/mL (0.000-0.055) TD-Pmi-J-Type Natriuretic Peptide 3024 pg/mL (0-449) Total Protein 5.3 g/dL (6.4-8.2) Albumin 2.2 g/dL (3.4-5.0) Albumin/Globulin Ratio 0.7 (1.0-1.7) Lipase 177 U/L (73-393) Influenza Type A Antigen Negative (NEGATIVE) Influenza Type B Antigen Negative (NEGATIVE) ECHOCARDIOGRAM ECHOCARDIOGRAM <Conclusion> Left ventricle systolic function is severely impaired. Akinetic basal inferior wall. The Ejection Fraction is 20-25%. Pacer wire noted in the right atrium and right ventricle consistent with history. Mild mitral regurgitation. Trace tricuspid regurgitation. There is moderate pulmonary hypertension. The PA pressure was estimated at 47 mmHg. There is no evidence of significant pericardial effusion. DATE: 07/09/18 1552 ASSESSMENT/PLAN ASSESSMENT/PLAN 1. Dyspnea: multifactorial as noted below 2. PAFIB: New. preliminary finding noted with recent device download. 3. Acute on chronic systolic CHF: likely induced by AFIB and pulmonary issue. 4. COPD with possible pneumonia 5. CAD; past CABG and 2016 stent to LCx. Clinically stable. 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 7. ICM: recent EF at 25% Recommendations 1. Pulmonary consult pending 2. Continue with lasix therapy. Discussed hydration adequacy Interrogate device and confirm AFIB and check CorVue. 3. Daily wt, 2L FR. Continue with secondary prevention including statin. Will change coreg to toprol for better rhythm control. 4. Continue ASA. Hold plavix with potential initiation of eliquis for stroke prevention. 5. Will restart home lisinopril pending BP trend CAMILLE MÉNDEZ APRN Jul 23, 2018 12:10
[2018-07-23] MEDS ORDERED: FUROSEMIDE 40 MG/4 ML VIAL. IVP ONE ×2 (12:30→14:00)
[2018-07-23] MEDS ORDERED: ANTI-COAG MONITOR BY PHARMACY. MC PRN ×2 (12:30)
[2018-07-23] MEDS: ASPIRIN ENTERIC COATED 81 MG TABLET.DR. PO SCH (13:01)
[2018-07-23] MEDS: METOPROLOL SUCC 24HR ER 50 MG TAB.ER.24H. PO SCH (13:01)
[2018-07-23] MEDS: APIXABAN 5 MG TABLET. PO SCH ×2 (13:01→21:52)
--- NOTE | 2018-07-23 14:08 | CONS ---
DATE OF CONSULTATION: ATTENDING PHYSICIAN: Dr. Vela. REASON FOR CONSULTATION: Dyspnea. HISTORY OF PRESENT ILLNESS: The patient is a 73-year-old who has history of severe cardiomyopathy and history of COPD. The patient's EF is 20% to 25%. He presented to the hospital with several days of increasing dyspnea. He also had lower extremity edema. He has some postnasal drainage with a mild cough, which has been nonproductive. No fever, no chills, no headaches. No chest pain, no nausea, vomiting, no diarrhea. The patient was seen in the Emergency Room and was hospitalized. His chest x-ray was reviewed by me. There is evidence of cardiomegaly and bilateral interstitial infiltrates, consistent with interstitial edema. PAST MEDICAL HISTORY: History of CAD, history of cardiomyopathy with an EF of 20% to 25%, history of CHF, hypertension, hyperlipidemia, COPD. Normally uses oxygen 2 liters on and off. History of GERD, history of sciatica pain. History of shingles, allergic rhinitis, BPH. PAST SURGICAL HISTORY: Including pacemaker, CABG, PCI and stent. FAMILY HISTORY: Coronary artery disease. Noncontributory to lungs. SOCIAL HISTORY: Quit tobacco more than 10 years ago, but before that smoked for at least 35 years. MEDICATIONS: All reviewed as listed in the MRAD including diuretics. He is also on Eliquis along with oral antibiotics. REVIEW OF SYSTEMS: Twelve-point system obtained. Pertinent positives discussed in my history of present illness, otherwise noncontributory. All systems that were negative were reviewed as well. PHYSICAL EXAMINATION: GENERAL: He is awake, following commands. VITAL SIGNS: Stable. Blood pressure 152/65, pulse ox 97% on 3 liters. HEENT: Sclerae nonicteric. NECK: Supple. LUNGS: Diminished breath sounds. CARDIOVASCULAR: Regular rate. ABDOMEN: Soft, obese. EXTREMITIES: With 1+ pitting edema bilaterally. LABORATORY DATA: Reviewed. White cell count initially was 15.3, now down to 9.3, hemoglobin 10.1 and platelets are 164. BUN is 22 and 1.1. INR 1.2. IMPRESSION: 1. Acute on chronic hypoxic respiratory failure secondary to acute on chronic systolic heart failure. 2. Abnormal chest x-ray with bilateral interstitial infiltrates, more on the left than on the right along with cardiomegaly and small effusions, more consistent with interstitial edema. 3. Clinically, less likely pneumonia. 4. Underlying chronic obstructive pulmonary disease. 5. Cardiomyopathy with an EF of 20% to 25% and secondary pulmonary hypertension. RECOMMENDATIONS: 1. Would increase diuresis. Currently on p.o., we will give extra IV. 2. Wean oxygen slowly down to baseline of 1-2 liters, keep saturation 92% and above. 3. Anticoagulation per PCP. 4. Follow cardiology recommendations. 5. Taper steroids. 6. Oral antibiotics can be discontinued in the next 24 hours. 7. We will need a repeat chest x-ray to see an improvement in CHF. FELIBERTO RAMOS MD DR: PEYMAN/kieran JOB#: [id number] / [id number]
[2018-07-23] MEDS ORDERED: ASPIRIN ENTERIC COATED 325 MG TABLET.DR. PO SCH (15:00)
[2018-07-23] MEDS: FUROSEMIDE 40 MG TABLET. PO SCH (15:00)
[2018-07-23] MEDS: LISINOPRIL 10 MG TABLET PO SCH (15:00)
[2018-07-23 15:18] LABS: BILIRUBIN,URINE NEGATIVE (NEG); CLARITY,URINE CLEAR; COLOR,URINE YELLOW; NITRITE,URINE NEGATIVE (NEG); PH,URINE 5.5; PROTEIN,URINE NEGATIVE (NEG-TRACE); UROBILINOGEN,URINE 0.2 mg/dL (0.2 mg/dL)
[2018-07-23 16:01] LABS: BACTERIA,URINE 0 /HPF (0-FEW); HYALINE CASTS, URINE FEW /HPF; RBC,URINE OCC /HPF (0-2); SQUAMOUS EPITHELIAL CELL,UR OCC /LPF; WBC,URINE OCC /HPF (0-4)
[2018-07-23] MEDS ORDERED: FUROSEMIDE 20 MG/2 ML VIAL. IVP ONE (16:30)
[2018-07-23] MEDS: CETIRIZINE HCL 10 MG TABLET. PO SCH (16:47)
[2018-07-23] MEDS: BENZONATATE 100 MG CAPSULE. PO SCH ×2 (16:47→21:51)
[2018-07-23] MEDS ORDERED: CARVEDILOL 3.125 MG TABLET. PO SCH (17:00)
[2018-07-23] MEDS: GABAPENTIN 300 MG CAPSULE. PO SCH ×2 (17:40→21:52)
[2018-07-23] MEDS ORDERED: FAMOTIDINE 20 MG TABLET. PO SCH (21:00)
[2018-07-23] MEDS ORDERED: ATORVASTATIN CALCIUM 20 MG TABLET PO SCH (21:00)
[2018-07-23] MEDS: LACTOBACILLUS RHAMNOSUS GG 1 CAPSULE. PO SCH (21:51)
[2018-07-23] MEDS: FAMOTIDINE 20 MG TABLET. PO SCH (21:52)
[2018-07-24 03:00] VITALS: BP 136/46
[2018-07-24 07:00] VITALS: BP 120/69
[2018-07-24] MEDS: IPRATRPIUM/ALBUTEROL 0.5/2.5MG 3 ML NEBU. NEB SCH ×3 (07:29→15:08)
[2018-07-24] MEDS ORDERED: CLOPIDOGREL BISULFATE 75 MG TABLET PO SCH (08:00)
[2018-07-24] MEDS: APIXABAN 5 MG TABLET. PO SCH (08:39)
[2018-07-24] MEDS: CETIRIZINE HCL 10 MG TABLET. PO SCH (08:39)
[2018-07-24] MEDS: METOPROLOL SUCC 24HR ER 50 MG TAB.ER.24H. PO SCH (08:40)
[2018-07-24] MEDS: LACTOBACILLUS RHAMNOSUS GG 1 CAPSULE. PO SCH (08:41)
[2018-07-24] MEDS: predniSONE 20 MG TABLET PO SCH (08:41)
[2018-07-24] MEDS: ASPIRIN ENTERIC COATED 81 MG TABLET.DR. PO SCH (08:41)
[2018-07-24] MEDS: DOXYCYCLINE HYCLATE 100 MG TABLET PO SCH (08:41)
[2018-07-24] MEDS: BENZONATATE 100 MG CAPSULE. PO SCH ×2 (08:41→13:44)
[2018-07-24] MEDS: GABAPENTIN 300 MG CAPSULE. PO SCH ×2 (08:41→13:45)
[2018-07-24] MEDS: LISINOPRIL 10 MG TABLET PO SCH (08:41)
[2018-07-24] MEDS: FUROSEMIDE 40 MG TABLET. PO SCH (08:41)
[2018-07-24] MEDS ORDERED: FUROSEMIDE 40 MG TABLET. PO SCH (09:00)
[2018-07-24] MEDS ORDERED: NON FORMULARY ITEM (Lovastatin 1 TAB) PO SCH (09:00)
--- NOTE | 2018-07-24 09:49 | PDOC ---
PULMONARY PROGRESS NOTES Subjective no soa wants to go home Vitals Vital Signs Date Time Temp Pulse Resp B/P (MAP) Pulse Ox O2 Delivery O2 Flow Rate FiO2 07/24/18 08:41 80 120/69 07/24/18 07:29 98 Nasal Cannula 2.0 07/24/18 07:00 96.6 18 96.6 General: Alert, No acute distress Lungs: Clear Cardiovascular: S1 Abdomen: Soft Extremities: Other (1+edema) Labs Laboratory Tests Test 07/22/18 12:00 07/22/18 17:04 07/23/18 04:15 07/23/18 14:25 White Blood Count 15.3 x10^3/uL (4.0-11.0) 9.3 x10^3/uL (4.0-11.0) Red Blood Count 3.45 x10^6/uL (4.30-5.70) 3.27 x10^6/uL (4.30-5.70) Hemoglobin 10.6 g/dL (13.0-17.5) 10.1 g/dL (13.0-17.5) Hematocrit 32.0 % (39.0-53.0) 29.9 % (39.0-53.0) Mean Corpuscular Volume 93 fL (79-100) 92 fL (79-100) Mean Corpuscular Hemoglobin 31 pg (25-35) 31 pg (25-35) Mean Corpuscular Hemoglobin Concent 33 g/dL (31-37) 34 g/dL (31-37) Red Cell Distribution Width 15.3 % (11.5-14.5) 15.2 % (11.5-14.5) Platelet Count 177 x10^3/uL (140-400) 164 x10^3/uL (140-400) Neutrophils (%) (Auto) 86 % (31-73) 94 % (31-73) Lymphocytes (%) (Auto) 5 % (24-48) 4 % (24-48) Monocytes (%) (Auto) 8 % (0-9) 2 % (0-9) Eosinophils (%) (Auto) 1 % (0-3) 0 % (0-3) Basophils (%) (Auto) 0 % (0-3) 0 % (0-3) Neutrophils # (Auto) 13.2 x10^3uL (1.8-7.7) 8.7 x10^3uL (1.8-7.7) Lymphocytes # (Auto) 0.7 x10^3/uL (1.0-4.8) 0.4 x10^3/uL (1.0-4.8) Monocytes # (Auto) 1.2 x10^3/uL (0.0-1.1) 0.2 x10^3/uL (0.0-1.1) Eosinophils # (Auto) 0.1 x10^3/uL (0.0-0.7) 0.0 x10^3/uL (0.0-0.7) Basophils # (Auto) 0.0 x10^3/uL (0.0-0.2) 0.0 x10^3/uL (0.0-0.2) Segmented Neutrophils % 80 % (35-66) Band Neutrophils % 7 % (0-9) Lymphocytes % 2 % (24-48) Monocytes % 8 % (0-10) Eosinophils % 2 % (0-5) Basophils % 1 % (0-3) Platelet Estimate Adequate (ADEQUATE) Anisocytosis Slight Ovalocytes Few Prothrombin Time 14.4 SEC (11.7-14.0) Prothromb Time International Ratio 1.2 (0.8-1.1) Sodium Level 137 mmol/L (136-145) 137 mmol/L (136-145) Potassium Level 4.6 mmol/L (3.5-5.1) 4.4 mmol/L (3.5-5.1) Chloride Level 101 mmol/L (98-107) 103 mmol/L (98-107) Carbon Dioxide Level 28 mmol/L (21-32) 27 mmol/L (21-32) Anion Gap 8 (6-14) 7 (6-14) Blood Urea Nitrogen 22 mg/dL (8-26) 22 mg/dL (8-26) Creatinine 1.4 mg/dL (0.7-1.3) 1.1 mg/dL (0.7-1.3) Estimated GFR (Cockcroft-Gault) 49.4 65.3 BUN/Creatinine Ratio 16 (6-20) Glucose Level 116 mg/dL (70-99) 197 mg/dL (70-99) Calcium Level 7.8 mg/dL (8.5-10.1) 8.1 mg/dL (8.5-10.1) Magnesium Level 2.1 mg/dL (1.8-2.4) Total Bilirubin 1.2 mg/dL (0.2-1.0) Aspartate Amino Transf (AST/SGOT) 18 U/L (15-37) Alanine Aminotransferase (ALT/SGPT) 26 U/L (16-63) Alkaline Phosphatase 63 U/L (46-116) Creatine Kinase 20 U/L (39-308) Creatine Kinase MB (Mass) 1.3 ng/mL (0.0-3.6) Creatine Kinase MB Relative Index % (0-4) Troponin I Quantitative 0.034 ng/mL (0.000-0.055) BQ-Xla-[id number]-Type Natriuretic Peptide 3024 pg/mL (0-449) Total Protein 5.3 g/dL (6.4-8.2) Albumin 2.2 g/dL (3.4-5.0) Albumin/Globulin Ratio 0.7 (1.0-1.7) Lipase 177 U/L (73-393) Influenza Type A Antigen Negative (NEGATIVE) Influenza Type B Antigen Negative (NEGATIVE) Urine Collection Type Unknown Urine Color Yellow Urine Clarity Clear Urine pH 5.5 Urine Specific [place] 1.015 Urine Protein Negative mg/dL (NEG-TRACE) Urine Glucose (UA) 500 mg/dL (NEG) Urine Ketones (Stick) Negative mg/dL (NEG) Urine Blood Negative (NEG) Urine Nitrite Negative (NEG) Urine Bilirubin Negative (NEG) Urine Urobilinogen Dipstick 0.2 mg/dL (0.2 mg/dL) Urine Leukocyte Esterase Negative (NEG) Urine RBC Occ /HPF (0-2) Urine WBC Occ /HPF (0-4) Urine Squamous Epithelial Cells Occ /LPF Urine Bacteria 0 /HPF (0-FEW) Urine Hyaline Casts Few /HPF Urine Mucus Slight /LPF Laboratory Tests Test 07/23/18 14:25 Urine Collection Type Unknown Urine Color Yellow Urine Clarity Clear Urine pH 5.5 Urine Specific [place] 1.015 Urine Protein Negative mg/dL (NEG-TRACE) Urine Glucose (UA) 500 mg/dL (NEG) Urine Ketones (Stick) Negative mg/dL (NEG) Urine Blood Negative (NEG) Urine Nitrite Negative (NEG) Urine Bilirubin Negative (NEG) Urine Urobilinogen Dipstick 0.2 mg/dL (0.2 mg/dL) Urine Leukocyte Esterase Negative (NEG) Urine RBC Occ /HPF (0-2) Urine WBC Occ /HPF (0-4) Urine Squamous Epithelial Cells Occ /LPF Urine Bacteria 0 /HPF (0-FEW) Urine Hyaline Casts Few /HPF Urine Mucus Slight /LPF Medications Active Scripts Medications Dose Route/Sig Max Daily Dose Days Date Category Famotidine 20 Mg Tablet 20 Mg PO QHS 14 07/09/18 Rx Mucinex (Guaifenesin) 600 Mg Tablet.er 600 Mg PO BID 10 07/09/18 Rx Benzonatate 100 Mg Capsule 100 Mg PO DET930 10 07/09/18 Rx Cetirizine Hcl 10 Mg Tablet 10 Mg PO DAILY 30 07/09/18 Rx Lisinopril 10 Mg Tablet 10 Mg PO DAILY 12/21/15 Rx Furosemide 40 Mg Tablet 40 Mg PO DAILY 12/21/15 Rx Clopidogrel (Clopidogrel Bisulfate) 75 Mg Tablet 75 Mg PO [id number] 12/21/15 Rx Carvedilol 3.125 Mg Tablet 3.125 Mg PO BIDWMEALS 12/21/15 Rx Aspirin Ec (Aspirin) 325 Mg Tablet.dr 325 Mg PO [id number] 12/21/15 Rx Lovastatin 40 Mg Tablet 1 Tab PO DAILY 12/14/14 Reported Neurontin (Gabapentin) 300 Mg Capsule 300 Mg PO QID 01/24/14 Reported Impression . 1. Acute on chronic hypoxic respiratory failure secondary to acute on chronic systolic heart failure. 2. Abnormal chest x-ray with bilateral interstitial infiltrates, more on the left than on the right along with cardiomegaly and small effusions, more consistent with interstitial edema. 3. Clinically, less likely pneumonia. 4. Underlying chronic obstructive pulmonary disease. 5. Cardiomyopathy with an EF of 20% to 25% and secondary pulmonary hypertension. Plan . 1. diuresis. 2. Wean oxygen slowly down to baseline of 1-2 liters, keep saturation 92% and above. 3. Anticoagulation per PCP. 4. Follow cardiology recommendations. 5. Taper steroids. 6. Oral antibiotics can be discontinued 7. We will need a repeat chest x-ray to see an improvement in CHF. FELIBERTO RAMOS MD Jul 24, 2018 09:49
--- NOTE | 2018-07-24 10:49 | PDOC ---
PROGRESS NOTES Chief Complaint Chief Complaint History of Present Illness History of Present Illness 72-year-old male with end-stage COPD and multiple other medical problems presents with cough and sob x 7 days dced here 2 weeks ago copd exacerbation. pt quit smoking for 30ys, home o2 NC 2L, has copd, but not taking any meds since d/c He has home o2 2-3L. started to feel sob again, with worsening cough and yellowish sputum. not on lasix at home, which he was last admission. has le edema BP low in ER at 70s. EF 20% 2 weeks ago, ICD. Past Medical History Cardiovascular: CAD, CHF, HTN, Hyperlipidemia Pulmonary: COPD CENTRAL NERVOUS SYSTEM: Other GI: Diverticulosis, GERD Infectious disease: Other Renal/: Prostate Ca. History of Present Illness History of Present Illness Assessment/Plan Assessment/Plan acute on chronic hypoxic resp failure with COPD and CHF exacerbation copd exacerbation systolic CHF exacerbation Bronchitis h/o CAD with stents, CABG HTN with low BP nasal drip PPM/ICD mild malnutrition HLD plan: home today if cxr ok pulm, card consult need verify home meds lasix , 500cc bolus in ER for low BP duoneb , prednisone 40mg daily taper cough meds . add doxy dvt ppx Vitals Vitals Vital Signs Date Time Temp Pulse Resp B/P (MAP) Pulse Ox O2 Delivery O2 Flow Rate FiO2 07/24/18 08:41 80 120/69 07/24/18 07:29 98 Nasal Cannula 2.0 07/24/18 07:00 96.6 18 96.6 Physical Exam Physical Exam Physical Exam Physical Exam GEN.: No apparent distress. Alert and oriented. HEENT: Head is normocephalic, atraumatic NECK: Supple. LUNGS: bl moderate decreased bs wo crackles and wheezing. HEART: RRR, S1, S2 present. Peripheral pulses intact ABDOMEN: Soft, nontender. Positive bowel sounds. EXTREMITIES: Without any cyanosis. BL legs 2+ edema. NEUROLOGIC: Normal speech, normal tone PSYCHIATRIC: Normal affect, normal mood. SKIN: No ulcerations General: Alert, Oriented X3, Cooperative, mild distress Heart: Regular rate (Paced ), Other (2/6 systolic murmur to apex) Lungs: Clear Abdomen: Soft Extremities: No cyanosis Skin: No breakdown, No significant lesion Labs LABS Laboratory Tests Test 07/23/18 14:25 Urine Collection Type Unknown Urine Color Yellow Urine Clarity Clear Urine pH 5.5 Urine Specific [place] 1.015 Urine Protein Negative mg/dL (NEG-TRACE) Urine Glucose (UA) 500 mg/dL (NEG) Urine Ketones (Stick) Negative mg/dL (NEG) Urine Blood Negative (NEG) Urine Nitrite Negative (NEG) Urine Bilirubin Negative (NEG) Urine Urobilinogen Dipstick 0.2 mg/dL (0.2 mg/dL) Urine Leukocyte Esterase Negative (NEG) Urine RBC Occ /HPF (0-2) Urine WBC Occ /HPF (0-4) Urine Squamous Epithelial Cells Occ /LPF Urine Bacteria 0 /HPF (0-FEW) Urine Hyaline Casts Few /HPF Urine Mucus Slight /LPF Assessment and Plan Assessmemt and Plan Problems Medical Problems: (1) CHF (congestive heart failure) Status: Acute Comment Review of Relevant I have reviewed the following items jay (where applicable) has been applied. Labs Laboratory Tests Test 07/22/18 12:00 07/22/18 17:04 07/23/18 04:15 07/23/18 14:25 White Blood Count 15.3 x10^3/uL (4.0-11.0) 9.3 x10^3/uL (4.0-11.0) Red Blood Count 3.45 x10^6/uL (4.30-5.70) 3.27 x10^6/uL (4.30-5.70) Hemoglobin 10.6 g/dL (13.0-17.5) 10.1 g/dL (13.0-17.5) Hematocrit 32.0 % (39.0-53.0) 29.9 % (39.0-53.0) Mean Corpuscular Volume 93 fL (79-100) 92 fL (79-100) Mean Corpuscular Hemoglobin 31 pg (25-35) 31 pg (25-35) Mean Corpuscular Hemoglobin Concent 33 g/dL (31-37) 34 g/dL (31-37) Red Cell Distribution Width 15.3 % (11.5-14.5) 15.2 % (11.5-14.5) Platelet Count 177 x10^3/uL (140-400) 164 x10^3/uL (140-400) Neutrophils (%) (Auto) 86 % (31-73) 94 % (31-73) Lymphocytes (%) (Auto) 5 % (24-48) 4 % (24-48) Monocytes (%) (Auto) 8 % (0-9) 2 % (0-9) Eosinophils (%) (Auto) 1 % (0-3) 0 % (0-3) Basophils (%) (Auto) 0 % (0-3) 0 % (0-3) Neutrophils # (Auto) 13.2 x10^3uL (1.8-7.7) 8.7 x10^3uL (1.8-7.7) Lymphocytes # (Auto) 0.7 x10^3/uL (1.0-4.8) 0.4 x10^3/uL (1.0-4.8) Monocytes # (Auto) 1.2 x10^3/uL (0.0-1.1) 0.2 x10^3/uL (0.0-1.1) Eosinophils # (Auto) 0.1 x10^3/uL (0.0-0.7) 0.0 x10^3/uL (0.0-0.7) Basophils # (Auto) 0.0 x10^3/uL (0.0-0.2) 0.0 x10^3/uL (0.0-0.2) Segmented Neutrophils % 80 % (35-66) Band Neutrophils % 7 % (0-9) Lymphocytes % 2 % (24-48) Monocytes % 8 % (0-10) Eosinophils % 2 % (0-5) Basophils % 1 % (0-3) Platelet Estimate Adequate (ADEQUATE) Anisocytosis Slight Ovalocytes Few Prothrombin Time 14.4 SEC (11.7-14.0) Prothromb Time International Ratio 1.2 (0.8-1.1) Sodium Level 137 mmol/L (136-145) 137 mmol/L (136-145) Potassium Level 4.6 mmol/L (3.5-5.1) 4.4 mmol/L (3.5-5.1) Chloride Level 101 mmol/L (98-107) 103 mmol/L (98-107) Carbon Dioxide Level 28 mmol/L (21-32) 27 mmol/L (21-32) Anion Gap 8 (6-14) 7 (6-14) Blood Urea Nitrogen 22 mg/dL (8-26) 22 mg/dL (8-26) Creatinine 1.4 mg/dL (0.7-1.3) 1.1 mg/dL (0.7-1.3) Estimated GFR (Cockcroft-Gault) 49.4 65.3 BUN/Creatinine Ratio 16 (6-20) Glucose Level 116 mg/dL (70-99) 197 mg/dL (70-99) Calcium Level 7.8 mg/dL (8.5-10.1) 8.1 mg/dL (8.5-10.1) Magnesium Level 2.1 mg/dL (1.8-2.4) Total Bilirubin 1.2 mg/dL (0.2-1.0) Aspartate Amino Transf (AST/SGOT) 18 U/L (15-37) Alanine Aminotransferase (ALT/SGPT) 26 U/L (16-63) Alkaline Phosphatase 63 U/L (46-116) Creatine Kinase 20 U/L (39-308) Creatine Kinase MB (Mass) 1.3 ng/mL (0.0-3.6) Creatine Kinase MB Relative Index % (0-4) Troponin I Quantitative 0.034 ng/mL (0.000-0.055) RT-Xnp-E-Type Natriuretic Peptide 3024 pg/mL (0-449) Total Protein 5.3 g/dL (6.4-8.2) Albumin 2.2 g/dL (3.4-5.0) Albumin/Globulin Ratio 0.7 (1.0-1.7) Lipase 177 U/L (73-393) Influenza Type A Antigen Negative (NEGATIVE) Influenza Type B Antigen Negative (NEGATIVE) Urine Collection Type Unknown Urine Color Yellow Urine Clarity Clear Urine pH 5.5 Urine Specific [place] 1.015 Urine Protein Negative mg/dL (NEG-TRACE) Urine Glucose (UA) 500 mg/dL (NEG) Urine Ketones (Stick) Negative mg/dL (NEG) Urine Blood Negative (NEG) Urine Nitrite Negative (NEG) Urine Bilirubin Negative (NEG) Urine Urobilinogen Dipstick 0.2 mg/dL (0.2 mg/dL) Urine Leukocyte Esterase Negative (NEG) Urine RBC Occ /HPF (0-2) Urine WBC Occ /HPF (0-4) Urine Squamous Epithelial Cells Occ /LPF Urine Bacteria 0 /HPF (0-FEW) Urine Hyaline Casts Few /HPF Urine Mucus Slight /LPF Laboratory Tests Test 07/23/18 14:25 Urine Collection Type Unknown Urine Color Yellow Urine Clarity Clear Urine pH 5.5 Urine Specific [place] 1.015 Urine Protein Negative mg/dL (NEG-TRACE) Urine Glucose (UA) 500 mg/dL (NEG) Urine Ketones (Stick) Negative mg/dL (NEG) Urine Blood Negative (NEG) Urine Nitrite Negative (NEG) Urine Bilirubin Negative (NEG) Urine Urobilinogen Dipstick 0.2 mg/dL (0.2 mg/dL) Urine Leukocyte Esterase Negative (NEG) Urine RBC Occ /HPF (0-2) Urine WBC Occ /HPF (0-4) Urine Squamous Epithelial Cells Occ /LPF Urine Bacteria 0 /HPF (0-FEW) Urine Hyaline Casts Few /HPF Urine Mucus Slight /LPF Medications Current Medications Sodium Chloride 500 ml @ 500 mls/hr 1X ONCE IV Last administered on at 14:05; Start 07/22/18 at 13:30; Stop 07/22/18 at 14:29; Status DC Methylprednisolone Sodium Succinate (SOLU-Medrol 125MG VIAL) 125 mg 1X ONCE IV Last administered on 07/22/18at 15:59; Start 07/22/18 at 15:00; Stop 07/22/18 at 15:01; Status DC Albuterol/ Ipratropium (Duoneb) 3 ml 1X ONCE NEB Last administered on at 15:46; Start 07/22/18 at 15:00; Stop 07/22/18 at 15:01; Status DC Albuterol/ Ipratropium (Duoneb) 3 ml RTQID NEB Last administered on 07/22/18at 15:53; Start 07/22/18 at 16:00; Stop 07/22/18 at 16:00; Status DC Acetaminophen (Tylenol) 650 mg PRN Q6HRS PRN PO FEVER; Start 07/22/18 at 16:00 Ondansetron HCl (Zofran) 4 mg PRN Q6HRS PRN IV NAUSEA/VOMITING; Start 07/22/18 at 16:00 Morphine Sulfate (Morphine Sulfate) 2 mg PRN Q2HR PRN IV MODERATE TO SEVERE PAIN; Start 07/22/18 at 16:00 Tramadol HCl (Ultram) 50 mg PRN Q6HRS PRN PO MILD TO MODERATE PAIN; Start 07/22 at 16:00 Docusate Sodium (Colace) 100 mg PRN DAILY PRN PO CONSTIPATION; Start 07/22/18 at 16:00 Albuterol/ Ipratropium (Duoneb) 3 ml RTQID NEB Last administered on 07/24/18at 07:29; Start 07/22/18 at 16:00 Albuterol Sulfate (Ventolin Neb Soln) 2.5 mg PRN Q2HR PRN NEB SHORTNESS OF BREATH; Start 07/22/18 at 16:00 Guaifenesin (Mucinex) 600 mg BID PO Last administered on 07/24/18at 08:39; Start 07/22/18 at 21:00 Doxycycline Hyclate (Vibra-Tab) 100 mg BID PO Last administered on 07/24/18at 08 :41; Start 07/22/18 at 21:00 Prednisone (Prednisone) 40 mg DAILY PO Last administered on 07/24/18at 08:41; Start 07/23/18 at 09:00 Famotidine (Pepcid) 20 mg QHS PO Last administered on 07/23/18at 21:52; Start at 21:00 Info (Do NOT chart on this placeholder) 1 each 1X ONCE MC ; Start 07/22/18 at 18:00; Stop 07/22/18 at 18:01; Status UNV Influenza Virus Vaccine (Afluria Trivalent [id number] Syringe) 0.5 ml ONCE ONCE VAX IM Last administered on 07/22/18at 21:02; Start 07/22/18 at 18:30; Stop at 18:31; Status DC Furosemide (Lasix) 20 mg 1X ONCE IVP Last administered on 07/23/18at 13:01; Start 07/23/18 at 12:30; Stop 07/23/18 at 12:31; Status DC Furosemide (Lasix) 40 mg DAILY PO ; Start 07/24/18 at 09:00; Status Cancel Atorvastatin Calcium (Lipitor) 20 mg QHS PO Last administered on 07/23/18at 21: 52; Start 07/23/18 at 21:00 Aspirin (Ecotrin) 81 mg DAILYWBKFT PO Last administered on 07/24/18at 08:41; Start 07/23/18 at 12:30 Metoprolol Succinate (Toprol Xl) 50 mg DAILY PO Last administered on 07/24/18at 08:40; Start 07/23/18 at 12:30 Apixaban (Eliquis) 5 mg BID PO Last administered on 07/24/18at 08:39; Start at 13:00 Info (Anti-Coagulation Monitoring By Pharmacy) 1 each PRN DAILY PRN MC SEE COMMENTS Last administered on 07/23/18at 12:23; Start 07/23/18 at 12:30 Info (Anti-Coagulation Monitoring By Pharmacy) 1 each PRN DAILY PRN MC SEE COMMENTS; Start 07/23/18 at 12:30; Status Cancel Lactobacillus Rhamnosus (Culturelle) 1 cap BID PO Last administered on at 08:41; Start 07/23/18 at 21:00 Furosemide (Lasix) 40 mg 1X ONCE IVP ; Start 07/23/18 at 14:00; Stop 07/23/18 at 16:17; Status DC Aspirin (Ecotrin) 325 mg DAILYWBKFT PO ; Start 07/23/18 at 15:00; Stop 07/23/18 at 15:00; Status DC Carvedilol (Coreg) 3.125 mg BIDWMEALS PO ; Start 07/23/18 at 17:00; Stop at 17:00; Status DC Cetirizine HCl (ZyrTEC) 10 mg DAILY PO Last administered on 07/24/18at 08:39; Start 07/23/18 at 15:00 Clopidogrel Bisulfate (Plavix) 75 mg DAILYWBKFT PO ; Start 07/24/18 at 08:00; Stop 07/24/18 at 08:00; Status DC Famotidine (Pepcid) 20 mg QHS PO ; Start 07/23/18 at 21:00; Status Cancel Furosemide (Lasix) 40 mg DAILY PO Last administered on 07/24/18at 08:41; Start 07/23/18 at 15:00 Guaifenesin (Mucinex) 600 mg BID PO ; Start 07/23/18 at 21:00; Status Cancel Lisinopril (Prinivil) 10 mg DAILY PO Last administered on 07/24/18at 08:41; Start 07/23/18 at 15:00 Benzonatate (Tessalon Perle) 100 mg [id number] PO Last administered on 07/24/18at 08 :41; Start 07/23/18 at 15:00 Gabapentin (Neurontin) 300 mg QID PO Last administered on 07/24/18at 08:41; Start 07/23/18 at 17:00 Non-Formulary Medication (Lovastatin ) 1 tab DAILY PO ; Start 07/24/18 at 09:00 ; Status UNV Furosemide (Lasix) 20 mg 1X ONCE IVP Last administered on 07/23/18at 16:47; Start 07/23/18 at 16:30; Stop 07/23/18 at 16:31; Status DC Active Scripts Active Famotidine 20 Mg Tablet 20 Mg PO QHS 14 Days Mucinex (Guaifenesin) 600 Mg Tablet.er 600 Mg PO BID 10 Days Benzonatate 100 Mg Capsule 100 Mg PO [id number] 10 Days Cetirizine Hcl 10 Mg Tablet 10 Mg PO DAILY 30 Days Lisinopril 10 Mg Tablet 10 Mg PO DAILY Furosemide 40 Mg Tablet 40 Mg PO DAILY Clopidogrel (Clopidogrel Bisulfate) 75 Mg Tablet 75 Mg PO DAILYWBKFT Carvedilol 3.125 Mg Tablet 3.125 Mg PO BIDWMEALS Aspirin Ec (Aspirin) 325 Mg Tablet.dr 325 Mg PO DAILYWBKFT Reported Lovastatin 40 Mg Tablet 1 Tab PO DAILY Neurontin (Gabapentin) 300 Mg Capsule 300 Mg PO QID Vitals/I & O Vital Sign - Last 24 Hours 07/23/18 07/23/18 07/23/18 07/23/18 11:00 11:44 13:01 14:38 Temp 96.6 95.7 96.6 95.7 Pulse 79 79 75 Resp 16 20 B/P (MAP) 152/65 (94) 152/65 95/59 (71) Pulse Ox 94 97 100 O2 Delivery Nasal Cannula Nasal Cannula Nasal Cannula O2 Flow Rate 3.0 2.0 07/23/18 07/23/18 07/23/18 07/23/18 16:12 16:16 19:00 19:27 Temp 97.5 97.5 Pulse 80 80 Resp 20 B/P (MAP) 133/72 (92) 113/65 (81) Pulse Ox 95 O2 Delivery Nasal Cannula Nasal Cannula Nasal Cannula O2 Flow Rate 3.0 3.0 07/23/18 07/23/18 07/24/18 07/24/18 20:00 23:00 03:00 07:00 Temp 96.4 98.6 96.6 96.4 98.6 96.6 Pulse 80 58 80 Resp 18 18 18 B/P (MAP) 107/63 (78) 136/46 (76) 120/69 (86) Pulse Ox 96 97 96 O2 Delivery Nasal Cannula Nasal Cannula Nasal Cannula Nasal Cannula O2 Flow Rate 3.0 18.0 18.0 2.0 07/24/18 07/24/18 07/24/18 07:29 08:40 08:41 Pulse 80 80 B/P (MAP) 120/69 120/69 Pulse Ox 98 O2 Delivery Nasal Cannula O2 Flow Rate 2.0 Intake and Output 07/23/18 07/23/18 07/24/18 15:00 23:00 07:00 Intake Total 300 ml 660 ml Output Total 600 ml Balance 300 ml -600 ml 660 ml NISH PAYAN MD Jul 24, 2018 10:49
[2018-07-24 11:00] VITALS: BP 115/63
[2018-07-24 11:18] LABS: CREATININE 1.1 mg/dL (0.7-1.3); GFR 65.3; MAGNESIUM 2.1 mg/dL (1.8-2.4); POTASSIUM 3.9 mmol/L (3.5-5.1)
[2018-07-24] MEDS ORDERED: POTASSIUM CHLORIDE 10 MEQ TABLET.ER. PO ONE (12:15)
[2018-07-24] MEDS ORDERED: FUROSEMIDE 40 MG/4 ML VIAL. IVP ONE (12:15)
--- NOTE | 2018-07-24 12:15 | PDOC ---
CARDIO Progress Notes Date and Time Date of Service 07/24/2018 Time of Evaluation 1150 Subjective Subjective: No Chest Pain, No shortness of breath, No Palpitations Vitals Vitals Vital Signs Date Time Temp Pulse Resp B/P (MAP) Pulse Ox O2 Delivery O2 Flow Rate FiO2 07/24/18 11:43 Nasal Cannula 2.0 07/24/18 08:41 80 120/69 07/24/18 07:29 98 07/24/18 07:00 96.6 18 96.6 Weight Weight [ ] Input and Output Intake and Output Intake and Output 07/24/18 07:00 Intake Total 960 ml Output Total 600 ml Balance 360 ml Intake Oral 960 ml Output Urine Total 600 ml # Voids 2 Laboratory Labs Laboratory Tests Test 07/23/18 14:25 07/24/18 10:22 Urine Collection Type Unknown Urine Color Yellow Urine Clarity Clear Urine pH 5.5 Urine Specific [place] 1.015 Urine Protein Negative mg/dL (NEG-TRACE) Urine Glucose (UA) 500 mg/dL (NEG) Urine Ketones (Stick) Negative mg/dL (NEG) Urine Blood Negative (NEG) Urine Nitrite Negative (NEG) Urine Bilirubin Negative (NEG) Urine Urobilinogen Dipstick 0.2 mg/dL (0.2 mg/dL) Urine Leukocyte Esterase Negative (NEG) Urine RBC Occ /HPF (0-2) Urine WBC Occ /HPF (0-4) Urine Squamous Epithelial Cells Occ /LPF Urine Bacteria 0 /HPF (0-FEW) Urine Hyaline Casts Few /HPF Urine Mucus Slight /LPF Sodium Level 136 mmol/L (136-145) Potassium Level 3.9 mmol/L (3.5-5.1) Chloride Level 100 mmol/L (98-107) Carbon Dioxide Level 30 mmol/L (21-32) Anion Gap 6 (6-14) Blood Urea Nitrogen 18 mg/dL (8-26) Creatinine 1.1 mg/dL (0.7-1.3) Estimated GFR (Cockcroft-Gault) 65.3 Glucose Level 172 mg/dL (70-99) Calcium Level 8.0 mg/dL (8.5-10.1) Magnesium Level 2.1 mg/dL (1.8-2.4) Physical Exam HEENT: Neck Supple W Full Motion Chest: Symmetric Heart: RRR (paced with underlying afib) Abdomen: Soft N/T Extremities: No Calf Tenderness, Other (3+ bilateral LE pitting edema) Neurology: alert, oriented, follow commands Assessment Assessment 1. Dyspnea: multifactorial as noted below 2. PAFIB: New. Paced with persistent underlying AFIB but rate controlled. 3. Acute on chronic systolic CHF: likely induced by AFIB and pulmonary issue. 4. COPD 5. CAD; past CABG and 2016 stent to LCx. Clinically stable. 6. 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 Interrogation revealed nml device but with AFIB for the past 11 days and downtrend on CorVue. BiV paced with 2.8 yrs battery life 7. ICM: recent EF at 25%. does not take lasix at home. Recommendations 1. Continue with lasix therapy.xtra dose IV today. 2. Daily wt, 2L FR. Continue with secondary prevention including statin. No RVR episodes nor VTs. Continue toprol 3. Continue ASA. Stop plavix and continue with eliquis for stroke prevention 4. Continue secondary prevention measures. 5. Follow up CHF clinic next week then [address] Puckett and if pt remains in AFIB then will consider for outpt cardioversion. CAMILLE MÉNDEZ MATERIAL SPREADER Jul 24, 2018 12:15
--- NOTE | 2018-07-24 13:39 | RAD ---
EXAM: Chest, 2 views. HISTORY: Congestive heart failure. COMPARISON: 07/09/2018 FINDINGS: A frontal view of the chest is obtained. There is severe right greater than left apical bullous emphysema with superimposed diffuse interstitial infiltrate. There is no pleural effusion or pneumothorax. There is cardiomegaly and evidence of prior coronary artery bypass grafting. There is a cardiac pacemaker defibrillator in expected position. IMPRESSION: 1. Severe right apical predominant bullous emphysema. 2. Stable diffuse interstitial infiltrate. 3. Stable cardiomegaly. Electronically signed by: Yaima Meza MD (07/24/2018 1:35 PM) [place] [id number]
--- NOTE | 2018-07-24 13:58 | PDOC3 ---
Discharge Summary Date of Admission: Jul 22, 2018 Date of Discharge: Jul 24, 2018 Follow-Up: 3-5 days Admitting Diagnosis comment: DISCHARGE DIAGNOSIS======== Chief Complaint History of Present Illness History of Present Illness 72-year-old male with end-stage COPD and multiple other medical problems presents with cough and sob x 7 days dced here 2 weeks ago copd exacerbation. pt quit smoking for 30ys, home o2 NC 2L, has copd, but not taking any meds since d/c He has home o2 2-3L. started to feel sob again, with worsening cough and yellowish sputum. not on lasix at home, which he was last admission. has le edema BP low in ER at 70s. EF 20% 2 weeks ago, ICD. Past Medical History Cardiovascular: CAD, CHF, HTN, Hyperlipidemia Pulmonary: COPD CENTRAL NERVOUS SYSTEM: Other GI: Diverticulosis, GERD Infectious disease: Other Renal/: Prostate Ca. History of Present Illness History of Present Illness DIAGNOSIS======== Assessment/Plan acute on chronic hypoxic resp failure with COPD and CHF exacerbation copd exacerbation systolic CHF exacerbation Bronchitis h/o CAD with stents, CABG HTN with low BP nasal drip PPM/ICD mild malnutrition HLD plan: home today if cxr ok pulm, card consult need verify home meds lasix , 500cc bolus in ER for low BP duoneb , prednisone 40mg daily taper cough meds . add doxy dvt ppx FINAL DIAGNOSIS Problems Medical Problems: (1) CHF (congestive heart failure) Status: Acute Brief Hospital Course Mr. Holm is a 73 old [sex] who presented with [COPD EXAC ] CONDITION AT DISCHARGE: Improved Discharge Medications Current Medications Sodium Chloride 500 ml @ 500 mls/hr 1X ONCE IV Last administered on at 14:05; Start 07/22/18 at 13:30; Stop 07/22/18 at 14:29; Status DC Methylprednisolone Sodium Succinate (SOLU-Medrol 125MG VIAL) 125 mg 1X ONCE IV Last administered on 07/22/18at 15:59; Start 07/22/18 at 15:00; Stop 07/22/18 at 15:01; Status DC Albuterol/ Ipratropium (Duoneb) 3 ml 1X ONCE NEB Last administered on at 15:46; Start 07/22/18 at 15:00; Stop 07/22/18 at 15:01; Status DC Albuterol/ Ipratropium (Duoneb) 3 ml RTQID NEB Last administered on 07/22/18at 15:53; Start 07/22/18 at 16:00; Stop 07/22/18 at 16:00; Status DC Acetaminophen (Tylenol) 650 mg PRN Q6HRS PRN PO FEVER; Start 07/22/18 at 16:00 Ondansetron HCl (Zofran) 4 mg PRN Q6HRS PRN IV NAUSEA/VOMITING; Start 07/22/18 at 16:00 Morphine Sulfate (Morphine Sulfate) 2 mg PRN Q2HR PRN IV MODERATE TO SEVERE PAIN; Start 07/22/18 at 16:00 Tramadol HCl (Ultram) 50 mg PRN Q6HRS PRN PO MILD TO MODERATE PAIN; Start 07/22 at 16:00 Docusate Sodium (Colace) 100 mg PRN DAILY PRN PO CONSTIPATION; Start 07/22/18 at 16:00 Albuterol/ Ipratropium (Duoneb) 3 ml RTQID NEB Last administered on 07/24/18at 11:43; Start 07/22/18 at 16:00 Albuterol Sulfate (Ventolin Neb Soln) 2.5 mg PRN Q2HR PRN NEB SHORTNESS OF BREATH; Start 07/22/18 at 16:00 Guaifenesin (Mucinex) 600 mg BID PO Last administered on 07/24/18at 08:39; Start 07/22/18 at 21:00 Doxycycline Hyclate (Vibra-Tab) 100 mg BID PO Last administered on 07/24/18at 08 :41; Start 07/22/18 at 21:00 Prednisone (Prednisone) 40 mg DAILY PO Last administered on 07/24/18at 08:41; Start 07/23/18 at 09:00 Famotidine (Pepcid) 20 mg QHS PO Last administered on 07/23/18at 21:52; Start at 21:00 Info (Do NOT chart on this placeholder) 1 each 1X ONCE MC ; Start 07/22/18 at 18:00; Stop 07/22/18 at 18:01; Status UNV Influenza Virus Vaccine (Afluria Trivalent [id number] Syringe) 0.5 ml ONCE ONCE VAX IM Last administered on 07/22/18at 21:02; Start 07/22/18 at 18:30; Stop at 18:31; Status DC Furosemide (Lasix) 20 mg 1X ONCE IVP Last administered on 07/23/18at 13:01; Start 07/23/18 at 12:30; Stop 07/23/18 at 12:31; Status DC Furosemide (Lasix) 40 mg DAILY PO ; Start 07/24/18 at 09:00; Status Cancel Atorvastatin Calcium (Lipitor) 20 mg QHS PO Last administered on 07/23/18at 21: 52; Start 07/23/18 at 21:00 Aspirin (Ecotrin) 81 mg DAILYWBKFT PO Last administered on 07/24/18at 08:41; Start 07/23/18 at 12:30 Metoprolol Succinate (Toprol Xl) 50 mg DAILY PO Last administered on 07/24/18at 08:40; Start 07/23/18 at 12:30 Apixaban (Eliquis) 5 mg BID PO Last administered on 07/24/18at 08:39; Start at 13:00 Info (Anti-Coagulation Monitoring By Pharmacy) 1 each PRN DAILY PRN MC SEE COMMENTS Last administered on 07/23/18at 12:23; Start 07/23/18 at 12:30 Info (Anti-Coagulation Monitoring By Pharmacy) 1 each PRN DAILY PRN MC SEE COMMENTS; Start 07/23/18 at 12:30; Status Cancel Lactobacillus Rhamnosus (Culturelle) 1 cap BID PO Last administered on at 08:41; Start 07/23/18 at 21:00 Furosemide (Lasix) 40 mg 1X ONCE IVP ; Start 07/23/18 at 14:00; Stop 07/23/18 at 16:17; Status DC Aspirin (Ecotrin) 325 mg DAILYWBKFT PO ; Start 07/23/18 at 15:00; Stop 07/23/18 at 15:00; Status DC Carvedilol (Coreg) 3.125 mg BIDWMEALS PO ; Start 07/23/18 at 17:00; Stop at 17:00; Status DC Cetirizine HCl (ZyrTEC) 10 mg DAILY PO Last administered on 07/24/18at 08:39; Start 07/23/18 at 15:00 Clopidogrel Bisulfate (Plavix) 75 mg DAILYWBKFT PO ; Start 07/24/18 at 08:00; Stop 07/24/18 at 08:00; Status DC Famotidine (Pepcid) 20 mg QHS PO ; Start 07/23/18 at 21:00; Status Cancel Furosemide (Lasix) 40 mg DAILY PO Last administered on 07/24/18at 08:41; Start 07/23/18 at 15:00 Guaifenesin (Mucinex) 600 mg BID PO ; Start 07/23/18 at 21:00; Status Cancel Lisinopril (Prinivil) 10 mg DAILY PO Last administered on 07/24/18at 08:41; Start 07/23/18 at 15:00 Benzonatate (Tessalon Perle) 100 mg [id number] PO Last administered on 07/24/18at 13 :44; Start 07/23/18 at 15:00 Gabapentin (Neurontin) 300 mg QID PO Last administered on 07/24/18at 13:45; Start 07/23/18 at 17:00 Non-Formulary Medication (Lovastatin ) 1 tab DAILY PO ; Start 07/24/18 at 09:00 ; Status UNV Furosemide (Lasix) 20 mg 1X ONCE IVP Last administered on 07/23/18at 16:47; Start 07/23/18 at 16:30; Stop 07/23/18 at 16:31; Status DC Furosemide (Lasix) 40 mg 1X ONCE IVP Last administered on 07/24/18at 13:45; Start 07/24/18 at 12:15; Stop 07/24/18 at 12:16; Status DC Potassium Chloride (Klor-Con) 10 meq DAILYWBKFT PO ; Start 07/25/18 at 08:00 Potassium Chloride (Klor-Con) 10 meq 1X ONCE PO Last administered on at 13:44; Start 07/24/18 at 12:15; Stop 07/24/18 at 12:19; Status DC Active Scripts Active Famotidine 20 Mg Tablet 20 Mg PO QHS 14 Days Mucinex (Guaifenesin) 600 Mg Tablet.er 600 Mg PO BID 10 Days Benzonatate 100 Mg Capsule 100 Mg PO [id number] 10 Days Cetirizine Hcl 10 Mg Tablet 10 Mg PO DAILY 30 Days Lisinopril 10 Mg Tablet 10 Mg PO DAILY Furosemide 40 Mg Tablet 40 Mg PO DAILY Clopidogrel (Clopidogrel Bisulfate) 75 Mg Tablet 75 Mg PO DAILYWBKFT Carvedilol 3.125 Mg Tablet 3.125 Mg PO BIDWMEALS Aspirin Ec (Aspirin) 325 Mg Tablet. 325 Mg PO DAILYWBKFT Reported Lovastatin 40 Mg Tablet 1 Tab PO DAILY Neurontin (Gabapentin) 300 Mg Capsule 300 Mg PO QID Vital Signs Vital Signs Date Time Temp Pulse Resp B/P (MAP) Pulse Ox O2 Delivery O2 Flow Rate FiO2 07/24/18 11:43 Nasal Cannula 2.0 07/24/18 11:00 97.0 78 18 115/63 (80) 96 97.0 Labs Laboratory Tests Test 07/22/18 17:04 07/23/18 04:15 07/23/18 14:25 07/24/18 10:22 Influenza Type A Antigen Negative (NEGATIVE) Influenza Type B Antigen Negative (NEGATIVE) White Blood Count 9.3 x10^3/uL (4.0-11.0) Red Blood Count 3.27 x10^6/uL (4.30-5.70) Hemoglobin 10.1 g/dL (13.0-17.5) Hematocrit 29.9 % (39.0-53.0) Mean Corpuscular Volume 92 fL (79-100) Mean Corpuscular Hemoglobin 31 pg (25-35) Mean Corpuscular Hemoglobin Concent 34 g/dL (31-37) Red Cell Distribution Width 15.2 % (11.5-14.5) Platelet Count 164 x10^3/uL (140-400) Neutrophils (%) (Auto) 94 % (31-73) Lymphocytes (%) (Auto) 4 % (24-48) Monocytes (%) (Auto) 2 % (0-9) Eosinophils (%) (Auto) 0 % (0-3) Basophils (%) (Auto) 0 % (0-3) Neutrophils # (Auto) 8.7 x10^3uL (1.8-7.7) Lymphocytes # (Auto) 0.4 x10^3/uL (1.0-4.8) Monocytes # (Auto) 0.2 x10^3/uL (0.0-1.1) Eosinophils # (Auto) 0.0 x10^3/uL (0.0-0.7) Basophils # (Auto) 0.0 x10^3/uL (0.0-0.2) Sodium Level 137 mmol/L (136-145) 136 mmol/L (136-145) Potassium Level 4.4 mmol/L (3.5-5.1) 3.9 mmol/L (3.5-5.1) Chloride Level 103 mmol/L (98-107) 100 mmol/L (98-107) Carbon Dioxide Level 27 mmol/L (21-32) 30 mmol/L (21-32) Anion Gap 7 (6-14) 6 (6-14) Blood Urea Nitrogen 22 mg/dL (8-26) 18 mg/dL (8-26) Creatinine 1.1 mg/dL (0.7-1.3) 1.1 mg/dL (0.7-1.3) Estimated GFR (Cockcroft-Gault) 65.3 65.3 Glucose Level 197 mg/dL (70-99) 172 mg/dL (70-99) Calcium Level 8.1 mg/dL (8.5-10.1) 8.0 mg/dL (8.5-10.1) Urine Collection Type Unknown Urine Color Yellow Urine Clarity Clear Urine pH 5.5 Urine Specific [place] 1.015 Urine Protein Negative mg/dL (NEG-TRACE) Urine Glucose (UA) 500 mg/dL (NEG) Urine Ketones (Stick) Negative mg/dL (NEG) Urine Blood Negative (NEG) Urine Nitrite Negative (NEG) Urine Bilirubin Negative (NEG) Urine Urobilinogen Dipstick 0.2 mg/dL (0.2 mg/dL) Urine Leukocyte Esterase Negative (NEG) Urine RBC Occ /HPF (0-2) Urine WBC Occ /HPF (0-4) Urine Squamous Epithelial Cells Occ /LPF Urine Bacteria 0 /HPF (0-FEW) Urine Hyaline Casts Few /HPF Urine Mucus Slight /LPF Magnesium Level 2.1 mg/dL (1.8-2.4) Laboratory Tests Test 07/23/18 14:25 07/24/18 10:22 Urine Collection Type Unknown Urine Color Yellow Urine Clarity Clear Urine pH 5.5 Urine Specific [place] 1.015 Urine Protein Negative mg/dL (NEG-TRACE) Urine Glucose (UA) 500 mg/dL (NEG) Urine Ketones (Stick) Negative mg/dL (NEG) Urine Blood Negative (NEG) Urine Nitrite Negative (NEG) Urine Bilirubin Negative (NEG) Urine Urobilinogen Dipstick 0.2 mg/dL (0.2 mg/dL) Urine Leukocyte Esterase Negative (NEG) Urine RBC Occ /HPF (0-2) Urine WBC Occ /HPF (0-4) Urine Squamous Epithelial Cells Occ /LPF Urine Bacteria 0 /HPF (0-FEW) Urine Hyaline Casts Few /HPF Urine Mucus Slight /LPF Sodium Level 136 mmol/L (136-145) Potassium Level 3.9 mmol/L (3.5-5.1) Chloride Level 100 mmol/L (98-107) Carbon Dioxide Level 30 mmol/L (21-32) Anion Gap 6 (6-14) Blood Urea Nitrogen 18 mg/dL (8-26) Creatinine 1.1 mg/dL (0.7-1.3) Estimated GFR (Cockcroft-Gault) 65.3 Glucose Level 172 mg/dL (70-99) Calcium Level 8.0 mg/dL (8.5-10.1) Magnesium Level 2.1 mg/dL (1.8-2.4) Allergies Allergies Coded Allergies Type Severity Reaction Last Updated Verified No Known Drug Allergies 12/21/13 No Disposition/Orders: D/C to Home Patient Instructions D/C PLANNING 35 MIN NISH PAYAN MD Jul 24, 2018 13:58
[2018-07-24] MEDS ORDERED: PRED20TA PO (14:05)
[2018-07-24] MEDS ORDERED: ALBU2.5V5 NEB (14:05)
[2018-07-24] MEDS ORDERED: METO50TA29 PO (14:05)
[2018-07-24] MEDS ORDERED: IPRA3AMP29 NEB (14:05)
[2018-07-25] MEDS ORDERED: POTASSIUM CHLORIDE 10 MEQ TABLET.ER. PO SCH (08:00)
== END 2018-07-24 15:58 | disposition home or self-care (01) | DRG 291 ==
LOC: ER 11:17 → 5 NORTH 15:22
PROVIDERS: ADMIT Internal Medicine; ATTEND Internal Medicine
PROC: 4B02XSZ Measurement of Cardiac Pacemaker, External Approach (ICD-10-PCS; principal; 2018-07-23)
DX: I11.0 Hypertensive heart disease with heart failure (principal); J96.21 Acute and chronic respiratory failure with hypoxia; E44.1 Mild protein-calorie malnutrition; J44.1 Chronic obstructive pulmonary disease with (acute) exacerbation; I50.23 Acute on chronic systolic (congestive) heart failure; K57.90 Diverticulosis of intestine, part unspecified, without perforation or abscess without bleeding; I25.10 Atherosclerotic heart disease of native coronary artery without angina pectoris; E78.5 Hyperlipidemia, unspecified; E78.00 Pure hypercholesterolemia, unspecified; I25.5 Ischemic cardiomyopathy; I27.29 Other secondary pulmonary hypertension; I48.0 Paroxysmal atrial fibrillation; K21.9 Gastro-esophageal reflux disease without esophagitis; N40.0 Benign prostatic hyperplasia without lower urinary tract symptoms; Z79.899 Other long term (current) drug therapy; Z95.1 Presence of aortocoronary bypass graft; Z86.19 Personal history of other infectious and parasitic diseases; Z85.46 Personal history of malignant neoplasm of prostate; Z95.5 Presence of coronary angioplasty implant and graft; Z68.29 Body mass index [BMI] 29.0-29.9, adult; Z87.891 Personal history of nicotine dependence; Z99.81 Dependence on supplemental oxygen; Z82.49 Family history of ischemic heart disease and other diseases of the circulatory system
CPT/HCPCS: 36415; 71045; 71046; 80048; 80053; 81001; 82553; 83690; 83735; 83880; 84484; 85007; 85025; 85610; 87804; 90471; 90756; 93005; 94640; 94760; 96361; 96374; J1940; J2930; J7040; J7512; J7620; 99285-25; Q2035

== ENCOUNTER → 2018-08-19 | Outpatient (CLI) | payer MEDICARE, BC ==
[2018-07-24 11:00] VITALS: BP 115/63
[~2018-08-19] MED LIST changes: +ALBU2.5V5 NEB; +IPRA3AMP29 NEB; +METO50TA29 PO
--- NOTE | 2018-08-19 11:48 | RAD ---
CT CHEST WO CONTRAST Indication: LUNG NODULE Technique: Noncontrast CT imaging was performed of the chest, multiplanar reconstruction images submitted. One or more of the following individualized dose reduction techniques were utilized for this examination: 1. Automated exposure control 2. Adjustment of the mA and/or kV according to patient size 3. Use of iterative reconstruction technique. Comparison: July 09, 2018; October 12, 2017 Findings: There is again severe emphysema, upper zone predominance. There is new infiltrate posteriorly of the left upper lobe abutting the fissure best seen axial images 95-142 series 3. There is some increased peripheral right lower lobe infiltrate extending to the pleural surface best seen on images 203 to 232 series 3. There is again more defined nodule right middle lobe abutting the minor fissure axial image 190 series 3 up to 1.5 cm x almost 0.8 cm axial oblique dimensions by 0.6 cm cc which is somewhat larger as previously about 1.3 cm x 0.5 by 0.4 cm on the October 2017 exam. There is also some new more central right lower lobe and right middle lobe infiltrate best seen axial image 239. There is also increased groundglass infiltrate of the right lower lobe closer to the lung base. There again has been median sternotomy. There is no pericardial effusion or pneumothorax. There is trace right pleural effusion. There is again right adrenal nodule about 2.1 cm, similar, density measurements indeterminate for lipid rich adenoma. There are a couple of foci of nodularity at the splenic hilum as seen previously probably due to accessory spleens. There is coronary calcification. There is left electronic cardiac device. There is again enlarged pretracheal node about 1.4 cm short axis dimension which is similar, some other smaller mediastinal nodes also similar. IMPRESSION: 1. There are new infiltrates bilaterally of the left upper lobe, more centrally of the right middle lobe and right lower lobe, and of the right lower lobe. Previously seen more defined right middle lobe nodule is somewhat larger comparing with older exam. 2. There is again severe emphysema. 3. There is stable mediastinal lymphadenopathy. 4. There is stable right adrenal nodule. Electronically signed by: Juvencio Santoyo MD (08/19/2018 11:45 AM) [id number]
== END | disposition home or self-care (01) ==
LOC: CT 10:54
PROVIDERS: ATTEND Internal Medicine Pulmonary Disease
DX: J43.9 Emphysema, unspecified (principal); I25.10 Atherosclerotic heart disease of native coronary artery without angina pectoris; E27.8 Other specified disorders of adrenal gland; R91.8 Other nonspecific abnormal finding of lung field; R59.0 Localized enlarged lymph nodes
CPT/HCPCS: 71250

== ENCOUNTER → 2018-12-05 | Outpatient (CLI) | payer MEDICARE, BC ==
[2018-10-19 11:22] VITALS: BP 133/65
[~2018-12-05] MED LIST changes: +ALBU2.5V8 INH; +CARV3.1210 PO; -CARV3.122 PO; -GABA-586 PO; +GABA300C18 PO; -HYDR-2762 PO; +HYDR-2765 PO
[2018-12-05 15:08] LABS: BASO # 0.1 x10^3/uL (0.0-0.2); BASO % 1 % (0-3); EOS # 0.3 x10^3/uL (0.0-0.7); EOS % 3 % (0-3); HEMATOCRIT 38.8 % (39.0-53.0); HEMOGLOBIN 12.3 g/dL (13.0-17.5); LYMPH # 1.6 x10^3/uL (1.0-4.8); LYMPH % 19 % (24-48); MEAN CORPUSCULAR HEMOGLOBIN 29 pg (25-35); MEAN CORPUSCULAR HGB CONC 32 g/dL (31-37); MEAN CORPUSCULAR VOLUME 92 fL (79-100); MONO # 0.9 x10^3/uL (0.0-1.1); MONO % 11 % (0-9); NEUT # 5.4 x10^3uL (1.8-7.7); NEUT % 66 % (31-73); PLATELET COUNT 165 x10^3/uL (140-400); RED BLOOD COUNT 4.22 x10^6/uL (4.30-5.70); RED CELL DISTRIBUTION WIDTH 16.8 % (11.5-14.5); WHITE BLOOD COUNT 8.2 x10^3/uL (4.0-11.0)
[2018-12-05 15:09] LABS: BILIRUBIN,URINE NEGATIVE (NEG); CLARITY,URINE CLEAR; COLOR,URINE YELLOW; NITRITE,URINE NEGATIVE (NEG); PROTEIN,URINE 30 mg/dL (NEG-TRACE)
[2018-12-05 15:21] LABS: CALCIUM 9.2 mg/dL (8.5-10.1); GFR 72.8; MAGNESIUM 2.1 mg/dL (1.8-2.4); POTASSIUM 4.8 mmol/L (3.5-5.1)
[2018-12-05 15:34] LABS: BACTERIA,URINE 0 /HPF (0-FEW)
[2018-12-05 15:35] LABS: RBC,URINE 0 /HPF (0-2); WBC,URINE 0 /HPF (0-4)
== END | disposition home or self-care (01) ==
LOC: LAB 14:34
PROVIDERS: ATTEND Internal Medicine Cardiovascular Disease
DX: I11.0 Hypertensive heart disease with heart failure (principal); I50.9 Heart failure, unspecified; I43 Cardiomyopathy in diseases classified elsewhere; I25.10 Atherosclerotic heart disease of native coronary artery without angina pectoris; E78.5 Hyperlipidemia, unspecified; J44.9 Chronic obstructive pulmonary disease, unspecified; Z95.0 Presence of cardiac pacemaker; Z87.891 Personal history of nicotine dependence
CPT/HCPCS: 36415; 80048; 81001; 83735; 85025

== ENCOUNTER → 2019-04-10 | Outpatient (CLI) | payer MEDICARE, BC ==
[2018-10-19 11:22] VITALS: BP 133/65
[~2019-04-10] MED LIST changes: +BUDE0.5A NEB; +RANI-376 PO; -RANI150T21 PO
--- NOTE | 2019-04-10 17:05 | RAD ---
Chest, PA and Lateral: Technique: PA and lateral views of the chest were obtained. History: Ischemic cardiomyopathy. Comparison: 10/16/2018. Findings: Mild cardiomegaly.. Left-sided cardiac pacer/ AICD is identified.. Diffuse prominent bilateral interstitial lung markings likely chronic interstitial changes similar to prior exam.. Moderate-sized bullae identified in the apical lungs similar to prior exam. Impression: Chronic changes as described above.. Electronically signed by: Carmelo Gupta MD (04/10/2019 5:02 PM) [place] [id number]
== END | disposition home or self-care (01) ==
LOC: RAD 14:54
PROVIDERS: ATTEND Internal Medicine Cardiovascular Disease
DX: I51.7 Cardiomegaly (principal); I25.5 Ischemic cardiomyopathy
CPT/HCPCS: 71046

== ENCOUNTER 2020-06-15 19:25 | Observation (INO) | payer MEDICARE, BC ==
[~2020-06-15] VITALS: Ht 180.3 cm; Wt 97.5 kg
[~2020-06-15 19:25] MED LIST changes: +ASPI-630 PO; +FERR325T14 PO; +GABA600T7 PO; +METO25TA4 PO; -PANT40TA5 PO; +PANT40TA77 PO
[2020-06-15] MEDS ORDERED: TETANUS AND DIPHTHERIA TOX/PF 0.5 ML DISP.SYRIN. VAX IM ONE (19:45)
--- NOTE | 2020-06-15 19:49 | PHYS DOC ---
Past Medical History Past Medical History: Arrhythmia, CAD, COPD, High Cholesterol Additional Past Medical Histor: shingles Past Surgical History: Coronary Bypass Surgery, Pacemaker Additional Past Surgical Histo: pacemaker/defibrillator Smoking Status: Former Smoker Alcohol Use: Occasionally Drug Use: None General Adult EDM: Chief Complaint: SYNCOPE HPI: HPI: Patient is a 74 year old male who presents for evaluation for syncope event. Patient was on the back of his tailgate and then either got up fell hit his head and got knocked out or passed out fell and hit his head. Patient says he has a headache but no other complaints. Patient denies any recent illnesses. No fevers cough vomiting diarrhea or blood in his stool. Pain is mild in severity and worse with palpation. Pain is nonradiating in the head. Review of Systems: Review of Systems: Constitutional: Denies fever or chills. [] Eyes: Denies change in visual acuity. [] HENT: Denies nasal congestion or sore throat. [] Respiratory: Denies cough or shortness of breath. [] Cardiovascular: Denies chest pain or edema. [] GI: Denies abdominal pain, nausea, vomiting, bloody stools or diarrhea. [] : Denies dysuria. [] Musculoskeletal: Denies back pain or joint pain. [] Integument: Denies rash. [] Neurologic: Complains of headache but no focal weakness or sensory changes. [] Endocrine: Denies polyuria or polydipsia. [] Lymphatic: Denies swollen glands. [] Psychiatric: Denies depression or anxiety. [] Heart Score: Risk Factors: Risk Factors: DM, Current or recent (<one month) smoker, HTN, HLP, family history of CAD, obesity. Risk Scores: Score 0 - 3: 2.5% MACE over next 6 weeks - Discharge Home Score 4 - 6: 20.3% MACE over next 6 weeks - Admit for Clinical Observation Score 7 - 10: 72.7% MACE over next 6 weeks - Early Invasive Strategies Current Medications: Current Medications Medications (Trade) Dose Ordered Sig/Minerva Start Time Stop Time Status Last Admin Dose Admin Tetanus/ Diphtheria Toxoids (Tenivac Syringe) 0.5 ml ONCE ONCE 06/15/20 19:45 06/15/20 19:46 DC Allergies: Allergies: Allergies Coded Allergies Type Severity Reaction Last Updated Verified No Known Drug Allergies 10/16/18 No Physical Exam: PE: Constitutional: Well developed, well nourished, no acute distress, non-toxic appearance. [] HENT: Multiple scattered abrasions through the face. Some bilateral periorbital ecchymosis. No septal hematoma no malocclusion Eyes: PERRLA, EOMI, mild periorbital ecchymosis Neck: Normal range of motion, no tenderness, supple, no stridor. [] Cardiovascular:Heart rate regular rhythm, peripheral pulses intact, cap refill brisk pacemakers to the left chest Lungs & Thorax: Bilateral breath sounds clear, no respiratory distress Abdomen: soft, no tenderness, no masses, no pulsatile masses. [] Skin: Warm, dry, no erythema, multiple abrasions to the face Back: No tenderness, no CVA tenderness. [] Extremities: Mild bruising to the left shoulder is nontender full range of motion, small skin tear to left elbow full range of motion nontender Neurologic: Alert and oriented X 3, normal motor function, normal sensory function, no focal deficits noted. [] Psychologic: Affect normal, judgement normal, mood normal. [] Current Patient Data: Labs: Laboratory Tests Test 06/15/20 19:40 White Blood Count 7.5 x10^3/uL Red Blood Count 3.47 x10^6/uL Hemoglobin 9.7 g/dL Hematocrit 30.2 % Mean Corpuscular Volume 87 fL Mean Corpuscular Hemoglobin 28 pg Mean Corpuscular Hemoglobin Concent 32 g/dL Red Cell Distribution Width 18.4 % Platelet Count 197 x10^3/uL Neutrophils (%) (Auto) 66 % Lymphocytes (%) (Auto) 17 % Monocytes (%) (Auto) 10 % Eosinophils (%) (Auto) 5 % Basophils (%) (Auto) 1 % Neutrophils # (Auto) 5.0 x10^3/uL Lymphocytes # (Auto) 1.3 x10^3/uL Monocytes # (Auto) 0.8 x10^3/uL Eosinophils # (Auto) 0.4 x10^3/uL Basophils # (Auto) 0.1 x10^3/uL Prothrombin Time 14.7 SEC Prothromb Time International Ratio 1.2 Activated Partial Thromboplast Time 30 SEC Sodium Level 138 mmol/L Potassium Level 4.4 mmol/L Chloride Level 101 mmol/L Carbon Dioxide Level 26 mmol/L Anion Gap 11 Blood Urea Nitrogen 20 mg/dL Creatinine 1.4 mg/dL Estimated GFR (Cockcroft-Gault) 49.3 BUN/Creatinine Ratio 14 Glucose Level 98 mg/dL Calcium Level 8.6 mg/dL Total Bilirubin 0.9 mg/dL Aspartate Amino Transf (AST/SGOT) 18 U/L Alanine Aminotransferase (ALT/SGPT) 16 U/L Alkaline Phosphatase 99 U/L Troponin I Quantitative 0.045 ng/mL GA-Ayt-U-Type Natriuretic Peptide 3725 pg/mL Total Protein 7.0 g/dL Albumin 3.4 g/dL Albumin/Globulin Ratio 0.9 Current Medications Medications (Trade) Dose Ordered Sig/Minerva Route PRN Reason Start Time Stop Time Status Last Admin Dose Admin Tetanus/ Diphtheria Toxoids (Tenivac Syringe) 0.5 ml ONCE ONCE VAX IM 06/15/20 19:45 06/15/20 19:46 DC 06/15/20 20:58 Sodium Chloride 1,000 ml @ 1,000 mls/hr 1X ONCE IV 06/15/20 20:00 06/15/20 20:59 DC 06/15/20 19:50 Bacitracin (Bacitracin Zinc Oint Pkt) 1 pkt 1X ONCE TP 06/15/20 20:45 06/15/20 20:46 DC 06/15/20 20:53 Vital Signs: Vital Signs Date Time Temp Pulse Resp B/P (MAP) Pulse Ox O2 Delivery O2 Flow Rate FiO2 06/15/20 19:32 98.3 69 16 92/51 (65) Nasal Cannula 2.0 98.3 EKG: EKG: [] EKG interpreted by tn paced rhythm with a rate of [address] changes Radiology/Procedures: Radiology/Procedures: [][facility] [address] [place] [address] IMAGING REPORT Signed PATIENT: RADHA CASILLAS ACCOUNT: [id number] : 1945 LOCATION: ER AGE: 74 SEX: M EXAM STATUS: REG ER ORD. PHYSICIAN: SÁNCHEZ ALLAN MD REASON: FALL, SYNCOPE PROCEDURE: PORTABLE CHEST 1V Exam: Chest one view INDICATION: Fall, syncope TECHNIQUE: Frontal view of the chest Comparisons: 06/30/2019 FINDINGS: Sternotomy wires again noted. AICD with leads terminating the right atrium, ventricle and coronary sinus. Heart is enlarged. Pulmonary vessels are within normal limits. Interstitial opacities the lung bases, stable from prior study. IMPRESSION: No acute pulmonary process identified. Electronically signed by: Saurabh Cazares MD (06/15/2020 8:25 PM) [id number] DICTATED and SIGNED BY: SAURABH CAZARES MD DATE: 06/15/202024 [facility] [address] [place] [address] IMAGING REPORT Signed PATIENT: RADHA CASILLAS ACCOUNT: [id number] : 1945 LOCATION: ER AGE: 74 SEX: M EXAM STATUS: REG ER ORD. PHYSICIAN: SÁNCHEZ ALLAN MD REASON: TRAUMA PROCEDURE: CT CERVICAL SPINE WO CONTRAST Exam: CT head, maxillofacial and cervical spine without contrast INDICATION: Trauma TECHNIQUE: Sequential axial images through the head, face and cervical spine were obtained without the administration of IV contrast. Comparisons: None FINDINGS: Head: No focal parenchymal lesion or hemorrhage is identified. There is no midline shift or sulcal effacement. Mild patchy hypodensity in the periventricular white matter. No acute vascular territory infarction is identified. Medrano-white distinction is preserved. The ventricular system is within normal limits without compression hydrocephalus. The basal cisterns are well maintained. Face Globes and intraorbital contents are normal. Mucosal thickening of the ethmoid air cells. No acute fractures. Mild extra cranial soft tissue scalp contusion overlying the left lateral superior orbital ridge. Cervical spine: Vertebral body heights and alignment are well-maintained. Fracture to the cervical spine is not identified. No significant spondylotic change identified in the cervical spine. Visualized paraspinal soft tissues are unremarkable. IMPRESSION: 1. Extracranial soft tissue scalp contusion overlying the left superior orbital ridge without underlying osseous abnormality. 2. No acute intracranial abnormality. 3. Negative CT C-spine for acute traumatic injury. Exposure: One or more of the following in the visualized dose reduction techniques were utilized for this examination: 1. Automated exposure control 2. Adjustment of the MA and/or KV according to patient size Use of iterative of reconstructive technique Electronically signed by: Saurabh Cazares MD (06/15/2020 8:50 PM) [id number] DICTATED and SIGNED BY: SAURABH CAZARES MD DATE: 06/15/202049 Course & Med Decision Making: Course & Med Decision Making Pertinent Labs and Imaging studies reviewed. (See chart for details) [] 74-year-old male with a syncopal event. His pacemaker was interrogated and he had no dysrhythmias. Family states he is had multiple episodes like this over the last 2 weeks. Could be related to hypotension. Patient given IV fluids in ER. Imaging is negative for intracranial hemorrhage or fracture. CT head was done due to age and mechanism. Wounds were cleaned by nursing staff. Patient will be admitted to Dr. wolf for further evaluation treatment Dragon Disclaimer: Amparo Disclaimer: This electronic medical record was generated, in whole or in part, using a voice recognition dictation system. Departure Departure Impression: Primary Impression: Syncope Additional Impressions: Head injury Facial contusion Multiple abrasions Disposition: ADMITTED INPATIENT Admitting Physician: NGA (RYAN) Condition: STABLE Referrals: BOZENA GARCIAS MD (PCP) Justicifation of Admission Dx: Justifications for Admission: Justification of Admission Dx: Yes SÁNCHEZ ALLAN MD Jun 15, 2020 19:49
[2020-06-15 19:53] LABS: BASO # 0.1 x10^3/uL (0.0-0.2); BASO % 1 % (0-3); EOS # 0.4 x10^3/uL (0.0-0.7); EOS % 5 % (0-3); HEMATOCRIT 30.2 % (39.0-53.0); HEMOGLOBIN 9.7 g/dL (13.0-17.5); LYMPH # 1.3 x10^3/uL (1.0-4.8); LYMPH % 17 % (24-48); MEAN CORPUSCULAR HEMOGLOBIN 28 pg (25-35); MEAN CORPUSCULAR HGB CONC 32 g/dL (31-37); MEAN CORPUSCULAR VOLUME 87 fL (79-100); MONO # 0.8 x10^3/uL (0.0-1.1); MONO % 10 % (0-9); NEUT % 66 % (31-73); PLATELET COUNT 197 x10^3/uL (140-400); RED BLOOD COUNT 3.47 x10^6/uL (4.30-5.70); RED CELL DISTRIBUTION WIDTH 18.4 % (11.5-14.5); WHITE BLOOD COUNT 7.5 x10^3/uL (4.0-11.0)
[2020-06-15 19:59] LABS: PROTHROMBIN TIME PATIENT 14.7 SEC (11.7-14.0)
[2020-06-15] MEDS ORDERED: IV NORMAL SALINE 1000ML BAG 1,000 ML IV ONE (20:00)
[2020-06-15 20:04] LABS: CALCIUM 8.6 mg/dL (8.5-10.1); CREATININE 1.4 mg/dL (0.7-1.3); GFR 49.3; POTASSIUM 4.4 mmol/L (3.5-5.1)
[2020-06-15 20:10] LABS: ALBUMIN 3.4 g/dL (3.4-5.0); ALBUMIN/GLOBULIN RATIO 0.9 (1.0-1.7); TOTAL BILIRUBIN 0.9 mg/dL (0.2-1.0)
--- NOTE | 2020-06-15 20:27 | RAD ---
Exam: Chest one view INDICATION: Fall, syncope TECHNIQUE: Frontal view of the chest Comparisons: 06/30/2019 FINDINGS: Sternotomy wires again noted. AICD with leads terminating the right atrium, ventricle and coronary sinus. Heart is enlarged. Pulmonary vessels are within normal limits. Interstitial opacities the lung bases, stable from prior study. IMPRESSION: No acute pulmonary process identified. Electronically signed by: Saurabh Snell MD (06/15/2020 8:25 PM) [id number]
[2020-06-15] MEDS ORDERED: BACITRACIN TOPICAL OINT PACKET. TP ONE (20:45)
--- NOTE | 2020-06-15 20:53 | RAD ---
Exam: CT head, maxillofacial and cervical spine without contrast INDICATION: Trauma TECHNIQUE: Sequential axial images through the head, face and cervical spine were obtained without the administration of IV contrast. Comparisons: None FINDINGS: Head: No focal parenchymal lesion or hemorrhage is identified. There is no midline shift or sulcal effacement. Mild patchy hypodensity in the periventricular white matter. No acute vascular territory infarction is identified. Medrano-white distinction is preserved. The ventricular system is within normal limits without compression hydrocephalus. The basal cisterns are well maintained. Face Globes and intraorbital contents are normal. Mucosal thickening of the ethmoid air cells. No acute fractures. Mild extra cranial soft tissue scalp contusion overlying the left lateral superior orbital ridge. Cervical spine: Vertebral body heights and alignment are well-maintained. Fracture to the cervical spine is not identified. No significant spondylotic change identified in the cervical spine. Visualized paraspinal soft tissues are unremarkable. IMPRESSION: 1. Extracranial soft tissue scalp contusion overlying the left superior orbital ridge without underlying osseous abnormality. 2. No acute intracranial abnormality. 3. Negative CT C-spine for acute traumatic injury. Exposure: One or more of the following in the visualized dose reduction techniques were utilized for this examination: 1. Automated exposure control 2. Adjustment of the MA and/or KV according to patient size Use of iterative of reconstructive technique Electronically signed by: Saurabh Snell MD (06/15/2020 8:50 PM) [id number]
[2020-06-15] MEDS ORDERED: ONDANSETRON PF 4 MG/2 ML VIAL. IV PRN (21:15)
[2020-06-15] MEDS: IV NORMAL SALINE 1000ML BAG 1,000 ML IV SCH (22:40)
--- NOTE | 2020-06-15 23:00 | NUR ---
pt admitted to room 210 with syncope. pt ambulated to room with 1pa, gait slightly unsteady. denies c/o pain, or denies. pt oriented to unit, staff, and poc. assessment complete, admission packet given. pt has abrasions to face adn skin tear to left arm d/t fall prior to admit. call light in reach will cont to monitor pt status and and safety. pmrn
[2020-06-15 23:17] VITALS: BP 100/42
[2020-06-16 02:14] LABS: BILIRUBIN,URINE NEGATIVE (NEG); CLARITY,URINE CLEAR; COLOR,URINE YELLOW; NITRITE,URINE NEGATIVE (NEG); PROTEIN,URINE NEGATIVE (NEG-TRACE)
[2020-06-16 02:27] LABS: SQUAMOUS EPITHELIAL CELL,UR MOD /LPF
[2020-06-16 02:28] LABS: BACTERIA,URINE FEW /HPF (0-FEW); HYALINE CASTS, URINE MODERATE /HPF; RBC,URINE RARE /HPF (0-2)
[2020-06-16 03:22] VITALS: BP 91/40
[2020-06-16 04:15] LABS: BASO # 0.1 x10^3/uL (0.0-0.2); BASO % 2 % (0-3); EOS # 0.4 x10^3/uL (0.0-0.7); EOS % 6 % (0-3); HEMOGLOBIN 8.7 g/dL (13.0-17.5); LYMPH # 1.3 x10^3/uL (1.0-4.8); LYMPH % 18 % (24-48); MEAN CORPUSCULAR HEMOGLOBIN 28 pg (25-35); MEAN CORPUSCULAR HGB CONC 32 g/dL (31-37); MEAN CORPUSCULAR VOLUME 87 fL (79-100); MONO # 0.9 x10^3/uL (0.0-1.1); MONO % 13 % (0-9); NEUT # 4.5 x10^3/uL (1.8-7.7); NEUT % 62 % (31-73); PLATELET COUNT 156 x10^3/uL (140-400); RED BLOOD COUNT 3.08 x10^6/uL (4.30-5.70); RED CELL DISTRIBUTION WIDTH 17.9 % (11.5-14.5); WHITE BLOOD COUNT 7.2 x10^3/uL (4.0-11.0)
--- NOTE | 2020-06-16 04:37 | EKG ---
[facility] [address] [place] [address] Test Date: 2020-06-15 Test Time: 19:43:30 Pat Name: RADHA CASILLAS Department: Room: 209 1 Gender: M [employer] Head: : 1945 Requested By: SÁNCHEZ ALLAN Order Number: [id number] Reading MD: Mac Klein MD Measurements Intervals [place] Rate: 70 P: CO: QRS: 242 QRSD: 168 T: 73 QT: 478 QTc: 520 Interpretive Statements BIVENTRICULAR PACED RHYTHM Electronically Signed On 06-16-2020 11:58:42 CDT by Mac Klein MD
[2020-06-16 07:00] VITALS: BP 116/64
[2020-06-16] MEDS: IV NORMAL SALINE 1000ML BAG 1,000 ML IV SCH (08:08)
--- NOTE | 2020-06-16 08:28 | PDOC2 ---
CAMILLE MÉNDEZ [employer]EARCH ENGINE[employer] 06/16/20 0828: CARDIAC CONSULT DATE OF CONSULT Date of Consult DATE: 06/16/20 TIME: 08:06 REASON FOR CONSULT Reason for Consult: syncope REFERRING PHYSICIAN Referring Physician: Raven SOURCE Source: Chart review, Patient HISTORY OF PRESENT ILLNESS HISTORY OF PRESENT ILLNESS This is a pleasant 74 yo male admitted for complains of passing out and fall. Reports that he typically uses O2 at 4LPM with his concentrator when outside the house. He decreased this to 3LPM to conserve while he was outside sitting on his tail gate of his el [employer]jorn and he may have ran out of oxygen. He was sitting and felt himself blacking out and fell forward with his face hitting the concrete pavement. This was noted right away by his family members and called for help. No CP or SOA and no palpitations. No recent falls. Denies any NELSON or vertigo. He did not eat lunch and was waiting for dinner at that time. He also told me that he did not drink much fluid yesterday. He is compliant with his medciations and so far no prior fever, chills, nausea, vomiting or diarrhea. He is sort of blaming it on his gabapentin for his postherpetic neuralgia. Again no focal neuro symptoms. PAST MEDICAL HISTORY Past Medical History Cardiovascular: CAD, CHF, HTN, Hyperlipidemia, Other (ICM) Pulmonary: COPD GI: Diverticulosis, GERD Heme/Onc: Anemia NOS Hepatobiliary: No pertinent hx Psych: No pertinent hx Musculoskeletal: low back pain (sciatica), Osteoarthritis Rheumatologic: No pertinent hx Infectious disease: Herpes zoster (shingles) ENT: Allergic Rhinitis Renal/: Benign prostatic enlarg., Prostate Ca. Dermatology: No pertinent hx PAST SURGICAL HISTORY Past Surgical History Pacemaker (PEST CONTROL SPECIALIST-D (st Tim)), CABG (1996), Other (PCI/stent to LCx 12/2015), prior cardiac ablation(08/16/2018) FAMILY HISTORY Family History Coronary Artery Disease SOCIAL HISTORY Smoke: Quit ALCOHOL: none Drugs: None Lives: with Family CURRENT MEDICATIONS CURRENT MEDICATIONS Current Medications Medications (Trade) Dose Ordered Sig/Minerva Route PRN Reason Start Time Stop Time Status Last Admin Dose Admin Tetanus/ Diphtheria Toxoids (Tenivac Syringe) 0.5 ml ONCE ONCE VAX IM 06/15/20 19:45 06/15/20 19:46 DC 06/15/20 20:58 Sodium Chloride 1,000 ml @ 1,000 mls/hr 1X ONCE IV 06/15/20 20:00 06/15/20 20:59 DC 06/15/20 19:50 Bacitracin (Bacitracin Zinc Oint Pkt) 1 pkt 1X ONCE TP 06/15/20 20:45 06/15/20 20:46 DC 06/15/20 20:53 Sodium Chloride 1,000 ml @ 75 mls/hr [id number] IV 06/15/20 21:05 06/16/20 21:04 06/15/20 22:40 ALLERGIES ALLERGIES: Coded Allergies: No Known Drug Allergies (Unverified , 10/16/18) ROS Review of System 14 point ROS evaluated with pertinent positives noted per HPI PHYSICAL EXAM General: Alert, Oriented X3, Cooperative, No acute distress HEENT: Atraumatic, Mucous membr. moist/pink Lungs: Clear to auscultation Heart: Regular rate (RV pacing), Normal S1, Normal S2 Extremities: No cyanosis, Other (trace LE) Skin: Other (periorbital and forehead contusion; generalized arm ecchymoses) Neuro: Normal speech, Sensation intact Psych/Mental Status: Mental status NL, Mood NL MUSCULOSKELETAL: Osteoarthritic changes both hands VITALS/I&O VITALS/I&O: Vital Signs Date Time Temp Pulse Resp B/P (MAP) Pulse Ox O2 Delivery O2 Flow Rate FiO2 06/16/20 03:22 97.8 62 18 91/40 (57) 99 Nasal Cannula 2.0 97.8 I & O 06/15/20 06/15/20 06/16/20 15:00 23:00 07:00 Intake Total 1000 ml 738 ml Output Total 1250 ml Balance 1000 ml -512 ml LABS Lab: Laboratory Tests Test 06/15/20 19:40 06/16/20 02:00 06/16/20 03:10 White Blood Count 7.5 x10^3/uL (4.0-11.0) 7.2 x10^3/uL (4.0-11.0) Red Blood Count 3.47 x10^6/uL (4.30-5.70) L 3.08 x10^6/uL (4.30-5.70) L Hemoglobin 9.7 g/dL (13.0-17.5) L 8.7 g/dL (13.0-17.5) L Hematocrit 30.2 % (39.0-53.0) L 27.0 % (39.0-53.0) L Mean Corpuscular Volume 87 fL (79-100) 87 fL (79-100) Mean Corpuscular Hemoglobin 28 pg (25-35) 28 pg (25-35) Mean Corpuscular Hemoglobin Concent 32 g/dL (31-37) 32 g/dL (31-37) Red Cell Distribution Width 18.4 % (11.5-14.5) H 17.9 % (11.5-14.5) H Platelet Count 197 x10^3/uL (140-400) 156 x10^3/uL (140-400) Neutrophils (%) (Auto) 66 % (31-73) 62 % (31-73) Lymphocytes (%) (Auto) 17 % (24-48) L 18 % (24-48) L Monocytes (%) (Auto) 10 % (0-9) H 13 % (0-9) H Eosinophils (%) (Auto) 5 % (0-3) H 6 % (0-3) H Basophils (%) (Auto) 1 % (0-3) 2 % (0-3) Neutrophils # (Auto) 5.0 x10^3/uL (1.8-7.7) 4.5 x10^3/uL (1.8-7.7) Lymphocytes # (Auto) 1.3 x10^3/uL (1.0-4.8) 1.3 x10^3/uL (1.0-4.8) Monocytes # (Auto) 0.8 x10^3/uL (0.0-1.1) 0.9 x10^3/uL (0.0-1.1) Eosinophils # (Auto) 0.4 x10^3/uL (0.0-0.7) 0.4 x10^3/uL (0.0-0.7) Basophils # (Auto) 0.1 x10^3/uL (0.0-0.2) 0.1 x10^3/uL (0.0-0.2) Prothrombin Time 14.7 SEC (11.7-14.0) H Prothrombin Time INR 1.2 (0.8-1.1) H Activated Partial Thromboplast Time 30 SEC (24-38) Sodium Level 138 mmol/L (136-145) Potassium Level 4.4 mmol/L (3.5-5.1) Chloride Level 101 mmol/L (98-107) Carbon Dioxide Level 26 mmol/L (21-32) Anion Gap 11 (6-14) Blood Urea Nitrogen 20 mg/dL (8-26) Creatinine 1.4 mg/dL (0.7-1.3) H Estimated GFR (Cockcroft-Gault) 49.3 BUN/Creatinine Ratio 14 (6-20) Glucose Level 98 mg/dL (70-99) Calcium Level 8.6 mg/dL (8.5-10.1) Total Bilirubin 0.9 mg/dL (0.2-1.0) Aspartate Amino Transferase (AST) 18 U/L (15-37) Alanine Aminotransferase (ALT) 16 U/L (16-63) Alkaline Phosphatase 99 U/L (46-116) Troponin I Quantitative 0.045 ng/mL (0.000-0.055) 0.045 ng/mL (0.000-0.055) VK-Mqy-X-Type Natriuretic Peptide 3725 pg/mL (0-449) H Total Protein 7.0 g/dL (6.4-8.2) Albumin 3.4 g/dL (3.4-5.0) Albumin/Globulin Ratio 0.9 (1.0-1.7) L Urine Collection Type Unknown Urine Color Yellow Urine Clarity Clear Urine pH 6.0 (<5.0-8.0) Urine Specific [place] 1.010 (1.000-1.030) Urine Protein Negative mg/dL (NEG-TRACE) Urine Glucose (UA) Negative mg/dL (NEG) Urine Ketones (Stick) Negative mg/dL (NEG) Urine Blood Negative (NEG) Urine Nitrite Negative (NEG) Urine Bilirubin Negative (NEG) Urine Urobilinogen Dipstick 1.0 mg/dL (0.2 mg/dL) Urine Leukocyte Esterase Trace (NEG) Urine RBC Rare /HPF (0-2) Urine WBC 5-10 /HPF (0-4) Urine Squamous Epithelial Cells Mod /LPF Urine Bacteria Few /HPF (0-FEW) Urine Hyaline Casts Moderate /HPF Urine Mucus Mod /LPF Laboratory Tests 06/15/20 19:40 06/16/20 03:10 Laboratory Tests 06/15/20 19:40 ECHOCARDIOGRAM ECHOCARDIOGRAM <Conclusion> The systolic function is mildly impaired. The Ejection Fraction is 40-45%. The basal to mid inferior wall is akinetic. The septal motion is suggestive of paced rhythm. Otherwise, mild global hypokinesis. There is a pacemaker lead in the right ventricle. The right ventricle is mildly to moderately dilated. Doppler and Color Flow revealed moderate tricuspid regurgitation with an estimated PAP of 60 MMhg. There is moderate pulmonary hypertension. DATE: 04/15/19 1452 HEART CATH HEART CATH Findings. Hemodynamics. Aortic root pressure 144/86. Coronaries. Left main. The left main had a 10% lesion. Left anterior descending. The LAD had a proximal 95% lesion and a mid occlusion. Left circumflex. The left circumflex for circumflex had a proximal 60% lesion, a mid 75-80% lesion and a distal occlusion. Obtuse marginal 1 branch had a 95% lesion. Right coronary artery. The right coronary was a moderately small vessel with a proximal to mid lesion of greater than 90%. Grafts. Saphenous vein graft to the LAD was widely patent. Saphenous vein graft to the right coronary artery was widely patent. The PAN was not used as a graft. Interventions. An obtuse marginal lesion of 95% was decreased to 0%. Left circumflex lesions of 75-80% as well as a more proximal lesion of 60-70% were decreased to 0% with drug eluting stents as noted above. <Conclusion> 3 vessel coronary artery disease. Patent saphenous vein graft to the LAD. Patent saphenous vein graft to the right coronary artery. 3 significant lesions of the left circumflex system decreased to 0% with 3 drug eluting stents. DATE: 12/17/15 1354 ASSESSMENT/PLAN ASSESSMENT/PLAN 1 Syncope with mechanical fall/periorbital contusion: No associated arrhythmias. Possibly induced by hypoxia and dehydration 2. CAD: past CABG and PCI. Most recent PCI/stents 12/2015 as noted above. Clinically stable. 3. Chronic systolic/diastolic CHF: NYHA 2-3, clinically compensated 4. ICM: most recent echo showed LV function improvement with LVEF 40-45% 5. PAFIB: RV pacing with distinct P waves 6. COPD with home O2 use: reported ran out of O2 on his concentrator 7. PEST CONTROL SPECIALIST-D in situ: St Tim. RV pacing. Interrogation revealed normal functioning device, no arrhythmias. 8. Anemia of chronic disease Recommendations 1. Check orthostatic readings. 2. Continue secondary prevention measures. ASA for stroke prevention. No longer on eliquis due to past fall and anemia. 3. Discussed with pt as far as maintaining O2 concentrator, hydration adequacy and not skipping meals. 4. Anticipate DC this afternoon 5. Follow up in office as scheduled. NICKY ROBLES MD 06/17/20 0745: CARDIAC CONSULT ASSESSMENT/PLAN ASSESSMENT/PLAN Late entry for 06/16/2020 Pt. seen and examined. Agree with above PULL OVER note. Supportive care. Negative for orthostatics. His echo was reviewed. He has chronic afib probably. CAMILLE MÉNDEZ APRN Jun 16, 2020 08:28 NICKY ROBLES MD Jun 17, 2020 07:45
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
[2020-06-16 08:47] LABS: CALCIUM 7.6 mg/dL (8.5-10.1); CREATININE 1.3 mg/dL (0.7-1.3); GFR 53.7; MAGNESIUM 2.3 mg/dL (1.8-2.4); POTASSIUM 4.2 mmol/L (3.5-5.1)
[2020-06-16] MEDS ORDERED: METOPROLOL TART IMMED RELEASE 25 MG TABLET. PO SCH (09:00)
[2020-06-16] MEDS ORDERED: PANTOPRAZOLE 40 MG TABLET.DR. PO SCH (09:00)
[2020-06-16] MEDS ORDERED: ASPIRIN CHEWABLE 81 MG TABLET. PO SCH (09:00)
[2020-06-16] MEDS ORDERED: FUROSEMIDE 40 MG TABLET. PO SCH (09:00)
--- NOTE | 2020-06-16 10:58 | NUR ---
SW following. Discussed with RN, pt from home with and [facility]. Pt possibly will be discharged home today with [facility]. RN advised no further SW needs. [facility] notified of potential discharge.
[2020-06-16 11:00] VITALS: BP_SYST 115; BP_SYST 119; BP_SYST 128; BP_DIAS 60; BP_DIAS 66; BP_DIAS 67
[2020-06-16 11:05] VITALS: BP 116/64
--- NOTE | 2020-06-16 11:54 | NUR ---
Discharge Note: RADHA CASILLAS Discharge instructions and discharge home medications reviewed with Patient and a copy given. All questions have been answered and understanding verbalized. The following instructions and handouts were given: d/c and f/u instructions Discontinued lines and drains: Peripheral IV intact. Patient discharged to Home w/services with Spouse via Wheelchair
[2020-06-16] MEDS ORDERED: GABAPENTIN 300 MG CAPSULE. PO SCH ×2 (12:00→17:00)
--- NOTE | 2020-06-16 14:43 | CARD ---
MR#: [id number] Date of Study: 06/16/2020 Ordering Physician: NICKY KLEIN, Referring Physician: NICKY KLEIN, Tech: Delia Mclaughlin APPROVED REPORT EXAM: Two-dimensional and M-mode echocardiogram with Doppler and color Doppler. Other Information Quality : AverageHR: 70bpm INDICATION Syncope Surgery/Intervention Pacemaker: CABG: Date: 1996 2D DIMENSIONS RVDd4.5 (2.9-3.5cm)Left Atrium(2D)4.9 (1.6-4.0cm) IVSd1.3 (0.7-1.1cm)Aortic Root(2D)3.2 (2.0-3.7cm) LVDd6.8 (3.9-5.9cm)LVOT Diameter2.0 (1.8-2.4cm) PWd1.4 (0.7-1.1cm)LVDs4.5 (2.5-4.0cm) FS (%) 34.8 %SV152.0 ml LVEF(%)62.7 (>50%) Aortic Valve AoV Peak Juan.99.1cm/sAoV VTI18.4cm AO Peak GR.3.9mmHgLVOT Peak Juan.98.3cm/s LVOT VTI 19.28cmAO Mean GR.2mmHg HORACIO (VMAX)2.81pz6EHV (VTI)3.31cm2 Mitral Valve MV E Tyvfybpk597.4cm/sMV E Peak Gr.78mmHg MV DECEL [id number] A Mrzizvnd68.8cm/s MV E Mean Gr.2mmHgMV [id number] E/A Ratio2.1MVA (PHT)4.71cm2 TDI E/Lateral E'18.2E/Medial E'15.7 Pulmonary Valve PV Peak Lkoshcqo94.1cm/sPV Peak Grad.4mmHg Tricuspid Valve TR P. [id number]/sRAP CDUCABSQ3sxRz TR Peak Gr.43byKrNSBQ89vmXz LEFT VENTRICLE The Left Ventricle is moderately dilated. There is mild to moderate concentric left ventricular hyper trophy. The systolic function is moderately impaired. The Ejection Fraction is 35% The distal 1/3 of the LV is severely hypokinetic. 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 Tissue Dop pler imaging reveals moderate left ventricular diastolic dysfunction. RIGHT VENTRICLE The right ventricle is mildly to moderately dilated. There is normal right ventricular wall thickness . RV Systolic function is mildly reduced. There is a pacemaker lead in the right ventricle. ATRIA The left atrium is moderately dilated. The right atrium is moderately dilated. The interatrial septum is intact with no evidence for an atrial septal defect or patent foramen ovale as noted on 2-D or Do ppler imaging. AORTIC VALVE The aortic valve is normal in structure and function. Doppler and Color Flow revealed trace aortic re gurgitation. There is no significant aortic valvular stenosis. Calculated aortic valve area is 3.64 c m2 with maximum pressure gradient of 4 mmHg and mean pressure gradient of 3 mmHg. MITRAL VALVE The mitral valve is thickened but opens well. There is no evidence of mitral valve prolapse. There is no mitral valve stenosis with an mean gradient of 2 mmHg. Doppler and Color-flow revealed trace mitr al regurgitation. TRICUSPID VALVE The tricuspid valve is normal in structure and function. Doppler and Color Flow revealed trace to mil d tricuspid regurgitation with an estimated PAP of 66 mmHg. There is no tricuspid valve stenosis. PULMONIC VALVE The pulmonic valve is not well visualized. Doppler and Color Flow revealed trace pulmonic valvular re gurgitation. There is no pulmonic valvular stenosis. GREAT VESSELS The aortic root is normal in size. The IVC is dilated. PERICARDIAL EFFUSION There is no evidence of significant pericardial effusion. Critical Notification Critical Value: No <Conclusion> The systolic function is moderately impaired. The Ejection Fraction is 35% The distal 1/3 of the LV is severely hypokinetic. The basal to mid inferior wall is akinetic and aneu rysmal. The right ventricle is mildly to moderately dilated. RV Systolic function is mildly reduced. There is a pacemaker lead in the right ventricle. Doppler and Color Flow revealed trace to mild tricuspid regurgitation with an estimated PAP of 66 mmH g. Signed by : Nicky Klein, Electronically Approved : 06/16/2020 14:43:08
[2020-06-16] MEDS ORDERED: ATORVASTATIN CALCIUM 10 MG TABLET. PO SCH (21:00)
== END 2020-06-16 13:59 | disposition home or self-care (01) ==
LOC: ER 19:25 → 2 NORTH 21:04
PROVIDERS: ADMIT Internal Medicine; ATTEND Internal Medicine
DX: S00.83XA Contusion of other part of head, initial encounter (principal); R55 Syncope and collapse; E78.00 Pure hypercholesterolemia, unspecified; I11.0 Hypertensive heart disease with heart failure; I50.42 Chronic combined systolic (congestive) and diastolic (congestive) heart failure; J18.9 Pneumonia, unspecified organism; I42.9 Cardiomyopathy, unspecified; J44.1 Chronic obstructive pulmonary disease with (acute) exacerbation; I25.119 Atherosclerotic heart disease of native coronary artery with unspecified angina pectoris; Z95.5 Presence of coronary angioplasty implant and graft; Z95.1 Presence of aortocoronary bypass graft; Z87.891 Personal history of nicotine dependence; W18.39XA Other fall on same level, initial encounter; Y93.89 Activity, other specified; Y92.89 Other specified places as the place of occurrence of the external cause; Y99.8 Other external cause status
CPT/HCPCS: 36415; 70450; 70486; 71045; 72125; 80048; 80053; 81001; 83735; 83880; 84484; 85025; 85610; 85730; 87086; 90471; 90714; 93005; 93306; 96360; 96361; 99285; G0378; J7030; G0379

== ENCOUNTER 2020-07-07 19:44 | Inpatient (IN) | payer MEDICARE, BC ==
[~2020-07-07] VITALS: Ht 180.3 cm; Wt 101.1 kg
[2020-07-07] MEDS ORDERED: IV NORMAL SALINE 1000ML BAG 1,000 ML IV ONE ×3 (20:00→23:45)
[2020-07-07] MEDS ORDERED: IPRATRPIUM/ALBUTEROL 0.5/2.5MG 3 ML NEBU. NEB ONE (20:00)
[2020-07-07] MEDS ORDERED: methylPREDNISolone SOD SUCC PF 125 MG/2 ML VIAL. IV ONE (20:00)
[2020-07-07 20:13] LABS: BASO # 0.1 x10^3/uL (0.0-0.2); BASO % 1 % (0-3); EOS # 0.2 x10^3/uL (0.0-0.7); EOS % 1 % (0-3); HEMATOCRIT 37.1 % (39.0-53.0); HEMOGLOBIN 11.6 g/dL (13.0-17.5); LYMPH # 1.3 x10^3/uL (1.0-4.8); LYMPH % 8 % (24-48); MEAN CORPUSCULAR HEMOGLOBIN 28 pg (25-35); MEAN CORPUSCULAR HGB CONC 31 g/dL (31-37); MEAN CORPUSCULAR VOLUME 91 fL (79-100); MONO # 1.4 x10^3/uL (0.0-1.1); MONO % 8 % (0-9); NEUT # 13.9 x10^3/uL (1.8-7.7); NEUT % 82 % (31-73); PLATELET COUNT 200 x10^3/uL (140-400); RED BLOOD COUNT 4.07 x10^6/uL (4.30-5.70); RED CELL DISTRIBUTION WIDTH 21.4 % (11.5-14.5); WHITE BLOOD COUNT 16.9 x10^3/uL (4.0-11.0)
--- NOTE | 2020-07-07 20:13 | PHYS DOC ---
Past Medical History Past Medical History: Arrhythmia, CAD, COPD, High Cholesterol Additional Past Medical Histor: shingles Past Surgical History: Coronary Bypass Surgery, Pacemaker Additional Past Surgical Histo: pacemaker/defibrillator Smoking Status: Former Smoker Alcohol Use: Occasionally Drug Use: None General Adult EDM: Chief Complaint: DYSPNEA/RESPIRATOY DISTRESS HPI: HPI: The history was obtained from the patient. Patient is a 74-year-old male with PMH oxygen dependent COPD, CAD, hyperlipidemia, hypertension who presents with a chief complaint of shortness of breath. Patient states he is had shortness of breath progressively over the past 24 hours. Does note a cough with sputum production. Denies fevers. States he uses 4 to 5 L nasal cannula at baseline. He denies any chest pain. Denies syncope. 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 Denies any recent steroids or antibiotics. Denies recent hospitalizations. Denies known exposure to coronavirus. No other complaints. Review of Systems: Review of Systems: Constitutional: Denies fever or chills. [] Eyes: Denies change in visual acuity. [] HENT: Denies nasal congestion or sore throat. [] Respiratory: Positive for cough and shortness of breath. Cardiovascular: Denies chest pain or edema. [] GI: Denies abdominal pain, nausea, vomiting, bloody stools or diarrhea. [] : Denies dysuria. [] Musculoskeletal: Denies back pain or joint pain. [] Integument: Denies rash. [] Neurologic: Denies headache, focal weakness or sensory changes. [] Endocrine: Denies polyuria or polydipsia. [] Lymphatic: Denies swollen glands. [] Psychiatric: Denies depression or anxiety. [] Heart Score: Risk Factors: Risk Factors: DM, Current or recent (<one month) smoker, HTN, HLP, family history of CAD, obesity. Risk Scores: Score 0 - 3: 2.5% MACE over next 6 weeks - Discharge Home Score 4 - 6: 20.3% MACE over next 6 weeks - Admit for Clinical Observation Score 7 - 10: 72.7% MACE over next 6 weeks - Early Invasive Strategies Current Medications: Current Medications Medications (Trade) Dose Ordered Sig/Minerva Start Time Stop Time Status Last Admin Dose Admin Albuterol/ Ipratropium (Duoneb) 9 ml 1X ONCE 07/07/20 20:00 07/07/20 20:01 DC Methylprednisolone Sodium Succinate (SOLU-Medrol 125MG VIAL) 125 mg 1X ONCE 07/07/20 20:00 07/07/20 20:01 DC Sodium Chloride 1,000 ml @ 1,000 mls/hr 1X ONCE 07/07/20 20:00 07/07/20 20:59 Allergies: Allergies: Allergies Coded Allergies Type Severity Reaction Last Updated Verified No Known Drug Allergies 10/16/18 No Physical Exam: PE: Constitutional: Well developed, well nourished, no acute distress, non-toxic appearance. [] HENT: Normocephalic, atraumatic, bilateral external ears normal, oropharynx moist, no oral exudates, nose normal. [] Eyes: PERRLA, EOMI, conjunctiva normal, no discharge. [] Neck: Normal range of motion, no tenderness, supple, no stridor. [] Cardiovascular:Heart rate regular rhythm, no murmur [] Lungs & Thorax: Tachypneic. Accessory muscle usage noted. 85% on home O2 requirement. Wheezes noted in the bases bilaterally. Abdomen: Bowel sounds normal, soft, no tenderness, no masses, no pulsatile masses. [] Skin: Warm, dry, no erythema, no rash. [] Back: No tenderness, no CVA tenderness. [] Extremities: No tenderness, no cyanosis, no clubbing, ROM intact, no edema. [] Neurologic: Alert and oriented X 3, normal motor function, normal sensory function, no focal deficits noted. [] Psychologic: Affect normal, judgement normal, mood normal. [] Current Patient Data: Labs: Laboratory Tests Test 07/07/20 19:57 White Blood Count 16.9 x10^3/uL Red Blood Count 4.07 x10^6/uL Hemoglobin 11.6 g/dL Hematocrit 37.1 % Mean Corpuscular Volume 91 fL Mean Corpuscular Hemoglobin 28 pg Mean Corpuscular Hemoglobin Concent 31 g/dL Red Cell Distribution Width 21.4 % Platelet Count 200 x10^3/uL Neutrophils (%) (Auto) 82 % Lymphocytes (%) (Auto) 8 % Monocytes (%) (Auto) 8 % Eosinophils (%) (Auto) 1 % Basophils (%) (Auto) 1 % Neutrophils # (Auto) 13.9 x10^3/uL Lymphocytes # (Auto) 1.3 x10^3/uL Monocytes # (Auto) 1.4 x10^3/uL Eosinophils # (Auto) 0.2 x10^3/uL Basophils # (Auto) 0.1 x10^3/uL Segmented Neutrophils % 80 % Band Neutrophils % 4 % Lymphocytes % 7 % Monocytes % 6 % Eosinophils % 2 % Basophils % 1 % Nucleated Red Blood Cells 1 Platelet Estimate Adequate Anisocytosis Slight Ovalocytes Occ Sodium Level 140 mmol/L Potassium Level 4.1 mmol/L Chloride Level 102 mmol/L Carbon Dioxide Level 24 mmol/L Anion Gap 14 Blood Urea Nitrogen 17 mg/dL Creatinine 1.6 mg/dL Estimated GFR (Cockcroft-Gault) 42.2 BUN/Creatinine Ratio 11 Glucose Level 147 mg/dL Lactic Acid Level 5.7 mmol/L Calcium Level 8.2 mg/dL Total Bilirubin 1.2 mg/dL Aspartate Amino Transf (AST/SGOT) 25 U/L Alanine Aminotransferase (ALT/SGPT) 14 U/L Alkaline Phosphatase 125 U/L Troponin I Quantitative 0.080 ng/mL AR-Ixd-Q-Type Natriuretic Peptide 3281 pg/mL Total Protein 8.1 g/dL Albumin 3.8 g/dL Albumin/Globulin Ratio 0.9 Current Medications Medications (Trade) Dose Ordered Sig/Minerva Route PRN Reason Start Time Stop Time Status Last Admin Dose Admin Albuterol/ Ipratropium (Duoneb) 9 ml 1X ONCE NEB 07/07/20 20:00 07/07/20 20:01 DC 07/07/20 20:45 Methylprednisolone Sodium Succinate (SOLU-Medrol 125MG VIAL) 125 mg 1X ONCE IV 07/07/20 20:00 07/07/20 20:01 DC 07/07/20 20:21 Sodium Chloride 1,000 ml @ 1,000 mls/hr 1X ONCE IV 07/07/20 20:00 07/07/20 20:59 DC 07/07/20 20:21 Vancomycin HCl (Vancomycin Oral Solution) 125 mg 1X PO 07/07/20 20:30 07/07/20 20:32 DC Piperacillin Sod/ Tazobactam Sod 3.375 gm/Sodium Chloride 50 ml @ 100 mls/hr 1X ONCE IV 07/07/20 20:30 07/07/20 20:59 DC 9/2/20 20:53 Vancomycin HCl (Vancomycin Oral Solution) 125 mg 1X ONCE PO 07/07/20 20:45 07/07/20 20:46 DC Vancomycin HCl 2 gm/Sodium Chloride 500 ml @ 250 mls/hr 1X ONCE IV 07/07/20 20:45 07/07/20 22:44 Acetaminophen (Tylenol) 1,000 mg 1X ONCE PO 07/07/20 20:45 07/07/20 20:46 DC 07/07/20 20:54 Sodium Chloride 1,000 ml @ 1,000 mls/hr 1X ONCE IV 07/07/20 21:30 07/07/20 22:29 UNV Sodium Chloride 1,000 ml @ 1,000 mls/hr Q1H IV 07/07/20 21:30 07/07/20 23:59 EKG: EKG: [] EKG consistent with normal sinus rhythm. Ventricular rate of 70 bpm. Left axis noted. T wave inversions noted in leads V2 and V3. No acute ST segment elevation appreciated. Radiology/Procedures: Radiology/Procedures: [][facility] [address] [place] [address] IMAGING REPORT Signed PATIENT: RADHA CASILLAS ACCOUNT: [id number] : 1945 LOCATION: ER AGE: 74 SEX: M EXAM STATUS: REG ER ORD. PHYSICIAN: KYLIE FUENTES DO REASON: SOB PROCEDURE: CHEST AP ONLY Chest AP portable at 1941: Reason for examination: Short of breath. Comparison is made to previous study dated 06/15/2020. Pacemaker remains present over the left hemithorax. There are postop changes in the sternum. The heart size is continues to be enlarged but unchanged. Mediastinum is unremarkable. Lung tompkins show large bulla in the right apex which is unchanged. There is some increase in the interstitial markings at the bases however which may reflect some interstitial edema. No pleural effusions are seen. No acute bony abnormalities are seen. Impression: Stable cardiomegaly however increasing interstitial markings at the lung bases which may reflect some interstitial edema. Recommend clinical correlation and follow-up. Electronically signed by: Michael Lopez MD (07/07/2020 8:33 PM) KRISTIAN DICTATED and SIGNED BY: MICHAEL LOPEZ MD DATE: 07/07/202032 Course & Med Decision Making: Course & Med Decision Making Pertinent Labs and Imaging studies reviewed. (See chart for details) [] Patient is a 74-year-old male who presents with chief complaint of re spiratory distress. Initial vital signs notable for 89% on home oxygen requirement. Given his increased work of breathing was placed on BiPAP. Duo nebs and IV Solu-Medrol was administered. He did have diffuse wheezing. On repeat examination his breathing status is improved significantly. He is at his current home oxygen level. He does have a leukocytosis of 16,000. Lactate of 5.7. This could be related to recent albuterol usage. However he will be given 30 cc/kg fluid bolus. He was given vancomycin and Zosyn. COVID samples obtained and pending. Patient does have mildly elevated troponin however i do feel this is likely secondary to his respiratory status. Low suspicion for cardiac event. Likely type II NSTEMI related to COPD exacerbation. Patient will require hospitalization for further care. Dragon Disclaimer: Dragon Disclaimer: This electronic medical record was generated, in whole or in part, using a voice recognition dictation system. Departure Departure Impression: Primary Impression: COPD exacerbation Additional Impressions: CHF (congestive heart failure) Qualified Codes: I50.9 - Heart failure, unspecified Elevated troponin Disposition: ADMITTED INPATIENT Condition: STABLE Referrals: BOZENA GARCIAS MD (PCP) Justicifation of Admission Dx: Justifications for Admission: Justification of Admission Dx: Yes Respiratory Failure: Severe Resp Distress KYLIE FUENTES DO Jul 07, 2020 20:13
[2020-07-07 20:26] LABS: CALCIUM 8.2 mg/dL (8.5-10.1); CREATININE 1.6 mg/dL (0.7-1.3); GFR 42.2; POTASSIUM 4.1 mmol/L (3.5-5.1)
[2020-07-07] MEDS ORDERED: VANCOMYCIN 125 MG/2.5 ML ORAL SOLUTION. PO SCH (20:30)
[2020-07-07] MEDS ORDERED: PIPERACILLIN/TAZOBACTAM 3.375 GM in IV NORMAL SALINE 50ML 50 ML IV ONE ×2 (20:30→23:30)
[2020-07-07 20:32] LABS: ALBUMIN 3.8 g/dL (3.4-5.0); ALBUMIN/GLOBULIN RATIO 0.9 (1.0-1.7); TOTAL BILIRUBIN 1.2 mg/dL (0.2-1.0); TOTAL PROTEIN 8.1 g/dL (6.4-8.2)
--- NOTE | 2020-07-07 20:36 | RAD ---
Chest AP portable at 1941: Reason for examination: Short of breath. Comparison is made to previous study dated 06/15/2020. Pacemaker remains present over the left hemithorax. There are postop changes in the sternum. The heart size is continues to be enlarged but unchanged. Mediastinum is unremarkable. Lung tompkins show large bulla in the right apex which is unchanged. There is some increase in the interstitial markings at the bases however which may reflect some interstitial edema. No pleural effusions are seen. No acute bony abnormalities are seen. Impression: Stable cardiomegaly however increasing interstitial markings at the lung bases which may reflect some interstitial edema. Recommend clinical correlation and follow-up. Electronically signed by: Karis Benoit MD (07/07/2020 8:33 PM) KRISTIAN
[2020-07-07] MEDS ORDERED: ACETAMINOPHEN 500 MG TABLET PO ONE (20:45)
[2020-07-07] MEDS ORDERED: VANCOMYCIN 2 GM in IV NORMAL SALINE 500ML BAG 500 ML IV ONE (20:45)
[2020-07-07] MEDS ORDERED: VANCOMYCIN 125 MG/2.5 ML ORAL SOLUTION. PO ONE (20:45)
[2020-07-07 21:08] LABS: % BANDS 4 % (0-9); % BASOS 1 % (0-3); % EOS 2 % (0-5); % LYMPHS 7 % (24-48); % MONOS 6 % (0-10); % SEGS 80 % (35-66); NUCLEATED RBC 1; PLT ESTIMATE ADEQUATE (ADEQUATE)
[2020-07-07 21:09] LABS: ANISOCYTOSIS SLIGHT; OVALOCYTES OCC
[2020-07-07] MEDS: IV NORMAL SALINE 1000ML BAG 1,000 ML IV SCH (21:37)
[2020-07-07] MEDS ORDERED: ONDANSETRON PF 4 MG/2 ML VIAL. IV PRN (21:45)
[2020-07-07 21:47] LABS: BASE EXCESS ABG -2 mmol/L (-3-3); CORRECTED PCO2 ABG 27 mmHg; CORRECTED PH ABG 7.48; CORRECTED PO2 ABG 109 mmHg; HCO3 ABG 20 mmol/L (21-28); SAT O2 ABG 97 % (92-99)
[2020-07-07 21:49] LABS: PCO2 ABG 25 mmHg (35-46); PO2 ABG 95 mmHg (65-108)
[2020-07-07 21:50] LABS: FIO2 ABG 35
[2020-07-07] MEDS ORDERED: VANCOMYCIN 2.5 GM in IV NORMAL SALINE 500ML BAG 500 ML IV ONE (23:30)
[2020-07-07] MEDS ORDERED: FUROSEMIDE 40 MG TABLET. PO ONE (23:30)
[2020-07-08] MEDS: IV NORMAL SALINE 1000ML BAG 1,000 ML IV SCH (00:30)
[2020-07-08 01:10] VITALS: BP 124/70
[2020-07-08 03:45] VITALS: BP 111/53
[2020-07-08 04:33] LABS: CALCIUM 6.9 mg/dL (8.5-10.1); CREATININE 1.6 mg/dL (0.7-1.3); GFR 42.2; POTASSIUM 4.3 mmol/L (3.5-5.1)
[2020-07-08 04:56] LABS: BASO % 0 % (0-3); EOS % 0 % (0-3); HEMATOCRIT 30.6 % (39.0-53.0); HEMOGLOBIN 9.8 g/dL (13.0-17.5); LYMPH # 0.5 x10^3/uL (1.0-4.8); LYMPH % 5 % (24-48); MEAN CORPUSCULAR HEMOGLOBIN 29 pg (25-35); MEAN CORPUSCULAR HGB CONC 32 g/dL (31-37); MEAN CORPUSCULAR VOLUME 91 fL (79-100); MONO # 0.2 x10^3/uL (0.0-1.1); MONO % 2 % (0-9); NEUT # 8.9 x10^3/uL (1.8-7.7); NEUT % 93 % (31-73); PLATELET COUNT 136 x10^3/uL (140-400); RED BLOOD COUNT 3.38 x10^6/uL (4.30-5.70); RED CELL DISTRIBUTION WIDTH 20.6 % (11.5-14.5); WHITE BLOOD COUNT 9.5 x10^3/uL (4.0-11.0)
--- NOTE | 2020-07-08 05:16 | NUR ---
Patient arrived at 0110 by kennedi. Reviewed patients medications and current oxygen use at home. Patient is alert and orientated x4. Patient denies any pain or discomfort. Patient SOB with exertion. Patient currently resting in bed comfortably with call light within reach.
--- NOTE | 2020-07-08 05:48 | EKG ---
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
[2020-07-08 07:44] VITALS: BP 107/52
--- NOTE | 2020-07-08 07:58 | PDOC1 ---
History and Physical Date of Admission Date of Admission DATE: 07/08/20 TIME: 07:58 Identification/Chief Complaint Chief Complaint Shortness of breath Source Source: Patient History of Present Illness History of Present Illness Mr Holm is a 73 year old w/ PMHx BPH and prostate CA, sCHF EF 20-25% s/p AICD CAD s/p prior CABG, COPD on continuous home O2, High Cholesterol, post- herpetic neuralgia who presented to ED for worsening shortness of breath. He denies any significant cough, or chills. No chest pain, no headaches, no nausea, vomiting, diarrhea. He does have lower extremity edema. Chest x-ray was reviewed. He has cardiomegaly and mild interstitial markings suggestive of CHF. T-Max 102 F White cell count was 16.9, now down to 9.5, hemoglobin 9.8 and platelets are 136. BUN 20 and creatinine of 1.6. Lactic acid was 5.7, now 3.9. EKG consistent with normal sinus rhythm. Ventricular rate of 70 bpm. Left axis noted. T wave inversions noted in leads V2 and V3. No acute ST segment elevation appreciated. Admitted for further care on antibiotics and with IV lasix. Past Medical History Cardiovascular: CAD, CHF, HTN, Hyperlipidemia, Other Pulmonary: COPD CENTRAL NERVOUS SYSTEM: Other GI: Diverticulosis, GERD Heme/Onc: Anemia NOS Hepatobiliary: No pertinent hx Psych: No pertinent hx Musculoskeletal: low back pain, Osteoarthritis Rheumatologic: No pertinent hx Infectious disease: Herpes zoster Renal/: Benign prostatic enlarg., Prostate Ca. Past Surgical History Past Surgical History: Pacemaker, CABG, Other Family History Family History: Coronary Artery Disease Social History Smoke: No ALCOHOL: none Drugs: None Current Problem List Problem List Problems Medical Problems: (1) CHF (congestive heart failure) Status: Acute (2) Elevated troponin Status: Acute Current Medications Current Medications Current Medications Albuterol/ Ipratropium (Duoneb) 9 ml 1X ONCE NEB Last administered on 07/07/20at 20:45; Start 07/07/20 at 20:00; Stop 07/07/20 at 20:01; Status DC Methylprednisolone Sodium Succinate (SOLU-Medrol 125MG VIAL) 125 mg 1X ONCE IV Last administered on 07/07/20at 20:21; Start 07/07/20 at 20:00; Stop 07/07/20 at 20:01; Status DC Sodium Chloride 1,000 ml @ 1,000 mls/hr 1X ONCE IV Last administered on 07/07/20at 20:21; Start 07/07/20 at 20:00; Stop 07/07/20 at 20:59; Status DC Vancomycin HCl (Vancomycin Oral Solution) 125 mg 1X PO ; Start 07/07/20 at 20:30; Stop 07/07/20 at 20:32; Status DC Piperacillin Sod/ Tazobactam Sod 3.375 gm/Sodium Chloride 50 ml @ 100 mls/hr 1X ONCE IV Last administered on 07/07/20at 20:53; Start 07/07/20 at 20:30; Stop 07/07/20 at 20:59; Status DC Vancomycin HCl (Vancomycin Oral Solution) 125 mg 1X ONCE PO ; Start 07/07/20 at 20:45; Stop 07/07/20 at 20:46; Status DC Vancomycin HCl 2 gm/Sodium Chloride 500 ml @ 250 mls/hr 1X ONCE IV Last administered on 07/07/20at 21:38; Start 07/07/20 at 20:45; Stop 07/07/20 at 22:44; Status DC Acetaminophen (Tylenol) 1,000 mg 1X ONCE PO Last administered on 07/07/20at 20:54; Start 07/07/20 at 20:45; Stop 07/07/20 at 20:46; Status DC Sodium Chloride 1,000 ml @ 1,000 mls/hr 1X ONCE IV ; Start 07/07/20 at 21:30; Stop 07/07/20 at 22:29; Status UNV Sodium Chloride 1,000 ml @ 1,000 mls/hr Q1H IV Last administered on 07/08/20at 00:30; Start 07/07/20 at 21:30; Stop 07/07/20 at 23:59; Status DC Ondansetron HCl (Zofran) 4 mg PRN Q8HRS PRN IV NAUSEA/VOMITING; Start 07/07/20 at 21:45; Stop 07/08/20 at 07:56; Status DC Furosemide (Lasix) 60 mg 1X ONCE PO ; Start 07/07/20 at 23:30; Stop 07/07/20 at 23:29; Status DC Vancomycin HCl 2.5 gm/Sodium Chloride 500 ml @ 250 mls/hr 1X ONCE IV ; Start 07/07/20 at 23:30; Stop 07/08/20 at 01:29; Status UNV Piperacillin Sod/ Tazobactam Sod 3.375 gm/Sodium Chloride 50 ml @ 100 mls/hr 1X ONCE IV ; Start 07/07/20 at 23:30; Stop 07/07/20 at 23:59; Status UNV Sodium Chloride 1,000 ml @ 1,000 mls/hr 1X ONCE IV Last administered on 07/08/20at 00:30; Start 07/07/20 at 23:45; Stop 07/08/20 at 00:44; Status DC Ondansetron HCl (Zofran) 4 mg PRN Q4HRS PRN IV NAUSEA/VOMITING; Start 07/08/20 at 08:00; Status UNV Aspirin (Aspirin Chewable) 81 mg DAILY PO ; Start 07/08/20 at 09:00; Status UNV Pantoprazole Sodium (Protonix) 40 mg DAILYAC PO ; Start 07/09/20 at 07:30; Status UNV Non-Formulary Medication (Lovastatin ) 1 tab DAILY PO ; Start 07/08/20 at 09:00; Status UNV Active Scripts Active Protonix (Pantoprazole Sodium) 40 Mg Tablet.dr 40 Mg PO DAILYAC 60 Days Furosemide 40 Mg Tablet 40 Mg PO DAILY MDD 1 Reported Gabapentin (Gabapentin) 300 Mg Capsule 300 Mg PO DAILYWSUP Gabapentin 600 Mg Tablet 600 Mg PO BIDWBKFT/TIERNEY Aspirin 81 Mg Tab.chew 81 Mg PO DAILY Lovastatin 40 Mg Tablet 1 Tab PO DAILY Allergies Allergies: Coded Allergies: No Known Drug Allergies (Unverified , 10/16/18) ROS General: YES: Fatigue, Malaise; No: Chills, Night Sweats, Appetite, Other PSYCHOLOGICAL ROS: No: Anxiety, Behavioral Disorder, Concentration difficultie, Decreased libido, Depression, Disorientation, Hallucinations, Hostility, Irritablity, Memory difficulties, Mood Swings, Obsessive thoughts, Physical abuse, Sexual abuse, Sleep disturbances, Suicidal ideation, Other Eyes: No Blurry vision, No Decreased vision, No Double vision, No Dry eyes, No Excessive tearing, No Eye Pain, No Itchy Eyes, No Loss of vision, No Photophobia, No Scotomata, No Uses contacts, No Uses glasses, No Other HEENT: No: Heacaches, Visual Changes, Hearing change, Nasal congestion, Nasal discharge, Oral lesions, Sinus pain, Sore Throat, Epistaxis, Sneezing, Snoring, Tinnitus, Vertigo, Vocal changes, Other ALLERGY AND IMMUNOLOGY: No: Hives, Insect Bite Sensitivity, Itchy/Watery Eyes, Nasal Congestion, Post Nasal Drip, Seasonal Allergies, Other Hematological and Lymphatic: No: Bleeding Problems, Blood Clots, Blood Tra nsfusions, Brusing, Night Sweats, Pallor, Swollen Lymph Nodes, Other ENDOCRINE: No: Breast Changes, Galactorrhea, Hair Pattern Changes, Hot Flashes, Malaise/lethargy, Mood Swings, Palpitations, Polydipsia/polyuria, Skin Changes, Temperature Intolerance, Unexpected Weight Changes, Other Breast: No New/Changing Breast Lumps, No Nipple changes, No Nipple discharge, No Other Respiratory: YES: Cough, Shortness of breath; No: Hemoptysis, Orthopnea, Pleuritic Pain, SOB with excertion, Sputum Changes, Stridor, Tachypnea, Wheezing, Other Cardiovascular: No Chest Pain, No Palpitations, No Orthopnea, No Paroxysmal Noc. Dyspnea, No Edema, No Lt Headedness, No Other Gastrointestinal: Yes Nausea, Yes Vomiting; No Abdominal Pain, No Diarrhea, No Constipation, No Melena, No Hematochezia, No Other Genitourinary: No Dysuria, No Frequency, No Incontinence, No Hematuria, No Retention, No Discharge, No Urgency, No Pain, No Flank Pain, No Other, No , No , No , No , No , No , No Musculoskeletal: No Gait Disturbance, No Joint Pain, No Joint Stiffness, No Joint Swelling, No Muscle Pain, No Muscular Weakness, No Pain In:, No Swelling In:, No Other Neurological: No Behavorial Changes, No Bowel/Bladder ControlChng, No Confusion, No Dizziness, No Gait Disturbance, No Headaches, No Impaired Coord/balance, No Memory Loss, No Numbness/Tingling, No Seizures, No Speech Problems, No Tremors, No Visual Changes, No Weakness, No Other Skin: No Dry Skin, No Eczema, No Hair Changes, No Lumps, No Mole Changes, No Mottling, No Nail Changes, No Pruritus, No Rash, No Skin Lesion Changes, No Other, No Acne Physical Exam General: Alert, Oriented X3, Cooperative, mild distress HEENT: Atraumatic, PERRLA, EOMI, Mucous membr. moist/pink Lungs: Other (Bibasilar crackles) Heart: S1S2, RRR, no thrills, no rubs, no gallops, no murmurs Abdomen: Normal bowel sounds, Soft, No tenderness, No hepatosplenomegaly, No masses Rectal Exam: not examined Extremities: No clubbing, No cyanosis, No edema, Normal pulses, No tenderness/swelling Skin: No rashes, No breakdown, No significant lesion Neuro: Normal gait, Normal speech, Strength at 5/5 X4 ext, Normal tone, Sensation intact, Cranial nerves 3-12 NL, Reflexes 2+ Psych/Mental Status: Mental status NL, Mood NL Vitals Vitals Vital Signs Date Time Temp Pulse Resp B/P (MAP) Pulse Ox O2 Delivery O2 Flow Rate FiO2 07/08/20 04:57 Nasal Cannula 4.0 07/08/20 03:45 97.6 69 20 111/53 (72) 96 97.6 Labs Labs Laboratory Tests Test 07/07/20 19:57 07/07/20 20:41 07/08/20 03:43 White Blood Count 16.9 x10^3/uL (4.0-11.0) 9.5 x10^3/uL (4.0-11.0) Red Blood Count 4.07 x10^6/uL (4.30-5.70) 3.38 x10^6/uL (4.30-5.70) Hemoglobin 11.6 g/dL (13.0-17.5) 9.8 g/dL (13.0-17.5) Hematocrit 37.1 % (39.0-53.0) 30.6 % (39.0-53.0) Mean Corpuscular Volume 91 fL (79-100) 91 fL (79-100) Mean Corpuscular Hemoglobin 28 pg (25-35) 29 pg (25-35) Mean Corpuscular Hemoglobin Concent 31 g/dL (31-37) 32 g/dL (31-37) Red Cell Distribution Width 21.4 % (11.5-14.5) 20.6 % (11.5-14.5) Platelet Count 200 x10^3/uL (140-400) 136 x10^3/uL (140-400) Neutrophils (%) (Auto) 82 % (31-73) 93 % (31-73) Lymphocytes (%) (Auto) 8 % (24-48) 5 % (24-48) Monocytes (%) (Auto) 8 % (0-9) 2 % (0-9) Eosinophils (%) (Auto) 1 % (0-3) 0 % (0-3) Basophils (%) (Auto) 1 % (0-3) 0 % (0-3) Neutrophils # (Auto) 13.9 x10^3/uL (1.8-7.7) 8.9 x10^3/uL (1.8-7.7) Lymphocytes # (Auto) 1.3 x10^3/uL (1.0-4.8) 0.5 x10^3/uL (1.0-4.8) Monocytes # (Auto) 1.4 x10^3/uL (0.0-1.1) 0.2 x10^3/uL (0.0-1.1) Eosinophils # (Auto) 0.2 x10^3/uL (0.0-0.7) 0.0 x10^3/uL (0.0-0.7) Basophils # (Auto) 0.1 x10^3/uL (0.0-0.2) 0.0 x10^3/uL (0.0-0.2) Segmented Neutrophils % 80 % (35-66) Band Neutrophils % 4 % (0-9) Lymphocytes % 7 % (24-48) Monocytes % 6 % (0-10) Eosinophils % 2 % (0-5) Basophils % 1 % (0-3) Nucleated Red Blood Cells 1 Platelet Estimate Adequate (ADEQUATE) Anisocytosis Slight Ovalocytes Occ Sodium Level 140 mmol/L (136-145) 140 mmol/L (136-145) Potassium Level 4.1 mmol/L (3.5-5.1) 4.3 mmol/L (3.5-5.1) Chloride Level 102 mmol/L (98-107) 107 mmol/L (98-107) Carbon Dioxide Level 24 mmol/L (21-32) 20 mmol/L (21-32) Anion Gap 14 (6-14) 13 (6-14) Blood Urea Nitrogen 17 mg/dL (8-26) 20 mg/dL (8-26) Creatinine 1.6 mg/dL (0.7-1.3) 1.6 mg/dL (0.7-1.3) Estimated GFR (Cockcroft-Gault) 42.2 42.2 BUN/Creatinine Ratio 11 (6-20) Glucose Level 147 mg/dL (70-99) 211 mg/dL (70-99) Lactic Acid Level 5.7 mmol/L (0.4-2.0) 3.9 mmol/L (0.4-2.0) Calcium Level 8.2 mg/dL (8.5-10.1) 6.9 mg/dL (8.5-10.1) Total Bilirubin 1.2 mg/dL (0.2-1.0) Aspartate Amino Transf (AST/SGOT) 25 U/L (15-37) Alanine Aminotransferase (ALT/SGPT) 14 U/L (16-63) Alkaline Phosphatase 125 U/L (46-116) Troponin I Quantitative 0.080 ng/mL (0.000-0.055) 0.095 ng/mL (0.000-0.055) IQ-Bos-Q-Type Natriuretic Peptide 3281 pg/mL (0-449) Total Protein 8.1 g/dL (6.4-8.2) Albumin 3.8 g/dL (3.4-5.0) Albumin/Globulin Ratio 0.9 (1.0-1.7) O2 Saturation 97 % (92-99) Arterial Blood pH 7.52 (7.35-7.45) Arterial Blood pH (Temp corrected) 7.48 Arterial Blood pCO2 at Patient Temp 25 mmHg (35-46) Arterial Blood pCO2 (Temp correct) 27 mmHg Arterial Blood pO2 at Patient Temp 95 mmHg (65-108) Arterial Blood pO2 (Temp corrected) 109 mmHg Arterial Blood HCO3 20 mmol/L (21-28) Arterial Blood Base Excess -2 mmol/L (-3-3) FiO2 35 Laboratory Tests Test 07/07/20 19:57 07/07/20 20:41 07/08/20 03:43 White Blood Count 16.9 x10^3/uL (4.0-11.0) 9.5 x10^3/uL (4.0-11.0) Red Blood Count 4.07 x10^6/uL (4.30-5.70) 3.38 x10^6/uL (4.30-5.70) Hemoglobin 11.6 g/dL (13.0-17.5) 9.8 g/dL (13.0-17.5) Hematocrit 37.1 % (39.0-53.0) 30.6 % (39.0-53.0) Mean Corpuscular Volume 91 fL (79-100) 91 fL (79-100) Mean Corpuscular Hemoglobin 28 pg (25-35) 29 pg (25-35) Mean Corpuscular Hemoglobin Concent 31 g/dL (31-37) 32 g/dL (31-37) Red Cell Distribution Width 21.4 % (11.5-14.5) 20.6 % (11.5-14.5) Platelet Count 200 x10^3/uL (140-400) 136 x10^3/uL (140-400) Neutrophils (%) (Auto) 82 % (31-73) 93 % (31-73) Lymphocytes (%) (Auto) 8 % (24-48) 5 % (24-48) Monocytes (%) (Auto) 8 % (0-9) 2 % (0-9) Eosinophils (%) (Auto) 1 % (0-3) 0 % (0-3) Basophils (%) (Auto) 1 % (0-3) 0 % (0-3) Neutrophils # (Auto) 13.9 x10^3/uL (1.8-7.7) 8.9 x10^3/uL (1.8-7.7) Lymphocytes # (Auto) 1.3 x10^3/uL (1.0-4.8) 0.5 x10^3/uL (1.0-4.8) Monocytes # (Auto) 1.4 x10^3/uL (0.0-1.1) 0.2 x10^3/uL (0.0-1.1) Eosinophils # (Auto) 0.2 x10^3/uL (0.0-0.7) 0.0 x10^3/uL (0.0-0.7) Basophils # (Auto) 0.1 x10^3/uL (0.0-0.2) 0.0 x10^3/uL (0.0-0.2) Segmented Neutrophils % 80 % (35-66) Band Neutrophils % 4 % (0-9) Lymphocytes % 7 % (24-48) Monocytes % 6 % (0-10) Eosinophils % 2 % (0-5) Basophils % 1 % (0-3) Nucleated Red Blood Cells 1 Platelet Estimate Adequate (ADEQUATE) Anisocytosis Slight Ovalocytes Occ Sodium Level 140 mmol/L (136-145) 140 mmol/L (136-145) Potassium Level 4.1 mmol/L (3.5-5.1) 4.3 mmol/L (3.5-5.1) Chloride Level 102 mmol/L (98-107) 107 mmol/L (98-107) Carbon Dioxide Level 24 mmol/L (21-32) 20 mmol/L (21-32) Anion Gap 14 (6-14) 13 (6-14) Blood Urea Nitrogen 17 mg/dL (8-26) 20 mg/dL (8-26) Creatinine 1.6 mg/dL (0.7-1.3) 1.6 mg/dL (0.7-1.3) Estimated GFR (Cockcroft-Gault) 42.2 42.2 BUN/Creatinine Ratio 11 (6-20) Glucose Level 147 mg/dL (70-99) 211 mg/dL (70-99) Lactic Acid Level 5.7 mmol/L (0.4-2.0) 3.9 mmol/L (0.4-2.0) Calcium Level 8.2 mg/dL (8.5-10.1) 6.9 mg/dL (8.5-10.1) Total Bilirubin 1.2 mg/dL (0.2-1.0) Aspartate Amino Transf (AST/SGOT) 25 U/L (15-37) Alanine Aminotransferase (ALT/SGPT) 14 U/L (16-63) Alkaline Phosphatase 125 U/L (46-116) Troponin I Quantitative 0.080 ng/mL (0.000-0.055) 0.095 ng/mL (0.000-0.055) DX-Ztg-V-Type Natriuretic Peptide 3281 pg/mL (0-449) Total Protein 8.1 g/dL (6.4-8.2) Albumin 3.8 g/dL (3.4-5.0) Albumin/Globulin Ratio 0.9 (1.0-1.7) O2 Saturation 97 % (92-99) Arterial Blood pH 7.52 (7.35-7.45) Arterial Blood pH (Temp corrected) 7.48 Arterial Blood pCO2 at Patient Temp 25 mmHg (35-46) Arterial Blood pCO2 (Temp correct) 27 mmHg Arterial Blood pO2 at Patient Temp 95 mmHg (65-108) Arterial Blood pO2 (Temp corrected) 109 mmHg Arterial Blood HCO3 20 mmol/L (21-28) Arterial Blood Base Excess -2 mmol/L (-3-3) FiO2 35 Images Images CXR: Pacemaker remains present over the left hemithorax. There are postop changes in the sternum. The heart size is continues to be enlarged but unchanged. Mediastinum is unremarkable. Lung tompkins show large bulla in the right apex which is unchanged. There is some increase in the interstitial markings at the bases however which may reflect some interstitial edema. No pleural effusions are seen. No acute bony abnormalities are seen. Impression: Stable cardiomegaly however increasing interstitial markings at the lung bases which may reflect some interstitial edema. Recommend clinical correlation and follow-up. VTE Prophylaxis Ordered VTE Prophylaxis Devices: Yes VTE Pharmacological Prophylaxi: Yes Assessment/Plan Assessment/Plan A/P: Acute hypoxia - likely related to acute COPD exacerbation. Will consult pulmonology for his severe emphysema BPH and prostate CA - not on meds currently Acutes systoli CHF EF 20-25% s/p AICD - will diurese CAD s/p prior CABG - possible unstable angina currently with mildly elevated trop. will trend and consult cardiology COPD on continuous home O2 - as above High Cholesterol - cont statin Post-herpetic neuralgia - cont gabapentin Right toe pain - with onychomycosis and ulcer, will consult podiatry to see while in house Anemia - unclear etiology, likely of chronic disease, will check iron stores and type and screen as he should receive transfusion if Hb < 8 FEN - Cardiac diet PPX - eliquis FULL CODE Dispo - inpatient for above Justifications for Admission Other Justification ADDY POTTER MD Jul 08, 2020 07:58
[2020-07-08] MEDS ORDERED: ONDANSETRON PF 4 MG/2 ML VIAL. IV PRN (08:00)
[2020-07-08] MEDS ORDERED: PANTOPRAZOLE 40 MG TABLET.DR. PO SCH (08:15)
[2020-07-08] MEDS ORDERED: ASPIRIN CHEWABLE 81 MG TABLET. PO SCH (09:00)
[2020-07-08] MEDS ORDERED: POLYETHYLENE GLYCOL 3350 17 GM PACKET. PO SCH (09:30)
[2020-07-08] MEDS: CALCIUM CARBONATE 500 MG TABLET PO SCH ×2 (10:19→14:01)
[2020-07-08] MEDS ORDERED: FUROSEMIDE 20 MG/2 ML VIAL. IVP ONE (12:15)
[2020-07-08 12:29] VITALS: BP 123/71
--- NOTE | 2020-07-08 12:40 | CONS ---
DATE OF CONSULTATION: PULMONARY CONSULTATION ATTENDING PHYSICIAN: Dr. Murdock. REASON FOR CONSULTATION: Dyspnea. HISTORY OF PRESENT ILLNESS: The patient is a 74-year-old male with history of oxygen-dependent COPD. He is on 4 liters. He has history of cardiomyopathy with an EF of 35%. He was brought into the hospital with increased shortness of breath. He denies any significant cough, or chills. No chest pain, no headaches, no nausea, vomiting, diarrhea. He does have lower extremity edema. Chest x-ray was reviewed. He has cardiomegaly and mild interstitial markings suggestive of CHF. T-Max 102 F Consultation requested for further evaluation. PAST MEDICAL HISTORY: Significant for COPD, history of chronic hypoxic respiratory failure, on 4 liters, history of cardiomyopathy with an EF of 35%, dyslipidemia, shingles. PAST SURGICAL HISTORY: Coronary artery bypass surgery and pacemaker and defibrillator. ALLERGIES: None. MEDICATIONS: Reviewed as listed in the MRAD. REVIEW OF SYSTEMS: Twelve-point system obtained. Pertinent positives discussed in my history of present illness, otherwise noncontributory. All systems that were negative were reviewed as well. SOCIAL HISTORY: Smoked for about 35 years before quitting. PHYSICAL EXAMINATION: VITAL SIGNS: Reviewed. Pulse ox 91% on 4 liters, blood pressure is stable. NECK: Supple. LUNGS: With diminished breath sounds. CARDIOVASCULAR: With a regular rate. ABDOMEN: Soft. EXTREMITIES: With 1+ pitting edema. LABORATORY DATA: Reviewed. White cell count was 16.9, now down to 9.5, hemoglobin 9.8 and platelets are 136. BUN 20 and creatinine of 1.6. Lactic acid was 5.7, now 3.9. ABGs were reviewed. IMPRESSION: 1. Dyspnea secondary to likely acute on chronic systolic heart failure/ suspected COVID-19 pneumonia 2. Underlying severe chronic obstructive pulmonary disease, on home oxygen at 4 liters, probably has mild exacerbation, triggered by congestive heart failure. 3. Mild chronic kidney disease. 4. Lactic acidosis from increased work of breathing and now improving. 5. Mildly increased troponin level. 6. Leukocytosis, likely reactive, now resolved. RECOMMENDATIONS: 1. Continue present oxygen 4 liters. 2. Gentle diuresis. 3. Continue Abx 4. Monitor fever 5. Isolation for COVID-19 pneumonia until ruled out. FELIBERTO RAMOS MD DR: PEYMAN/kieran JOB#: [id number] / [id number] ANA
[2020-07-08] MEDS ORDERED: IPRA15SP NS (16:09)
[2020-07-08] MEDS ORDERED: PANT40TA6 PO (16:09)
[2020-07-08] MEDS ORDERED: METO-239 PO (16:09)
[2020-07-08] MEDS ORDERED: LISI-334 PO (16:09)
--- NOTE | 2020-07-08 16:11 | NUR ---
SW following. Spoke with RN and reviewed chart. Pt on 4l 02. Pt COVID pending. Pt on IV Zofran. SW following.
--- NOTE | 2020-07-08 16:13 | SNU/HH DC ---
DISCHARGE WITH HOME HEALTH DISCHARGE INFORMATION: Discharge Date: Jul 08, 2020 Final Diagnosis: Problems Medical Problems: (1) CHF (congestive heart failure) Status: Acute (2) Elevated troponin Status: Acute Condition on Discharge: Stable CODE STATUS: Code Status: Full HOME HEALTH: Face to Face: I certify this patient is under my care and that I, or a nurse practitioner or physician's surgical physician assistant working with me, had a face to face encounter that meets the physician face to face encounter requirements with this patient on 07/08/2020. Medical Complications: CHF, COPD [facility] For: Assess Cardiopulm Status, Assess/Skilled Observatio RN For Eval/Treatment: Yes Physical Therapy For: Evalulation/Treatment Occupational Therapy For: Evaluation/Treatment Pt Meets Homebound Status: Extreme weakness w/ amb., Frequent falls w/ injury, Limited distance walking POST DISCHARGE ORDERS: Activity Instructions for Disc: Activity as tolerated Weight Bearing Status after Di: As tolerated Bathing Instructions: Shower-keep dressing dry DIET AFTER DISCHARGE: Cardiac Wound/Incision Care: No wound care needed CHECKS AFTER DISCHARGE: Checks after discharge: Check blood press - daily, Check your Temp as needed, Weigh Yourself Daily FOLLOW-UP: Follow up with: Dr. Phillips or Dr. Flores as needed or scheduled [phone] Follow Up With: PCP in 1 week Additional Instructions: F/u Cardiology TREATMENT/EQUIPMENT ORDERS: Adaptive Equipment Issued: None Discharge Respiratory Equipmen: Oxygen CERTIFICATION STATEMENT: Certification Statement: Certification Statement: Based on the above finding, I certify that this patient is confined to the home and needs intermittent half-way care, physical therapy and/or speech therapy, or continues to need occupational therapy.~ This patient is under my care, and I have initiated the establishment of the plan of care.~ This patient will be followed by myself or a community physician who will periodically review the plan of care. Home Meds Active Scripts Prednisone (PREDNISONE) 20 Mg Tablet, 1 TAB PO DAILY for COPD for 5 Days, #5 TAB Prov:ADDY POTTER MD 07/08/20 Doxycycline Hyclate (DOXYCYCLINE HYCLATE) 100 Mg Capsule, 1 CAP PO BID for COPD for 10 Days, #20 CAP Prov:ADDY POTTER MD 07/08/20 Pantoprazole Sodium (PROTONIX ) 40 Mg Tablet., 40 MG PO DAILYAC for GERD for 60 Days, #60 TAB Prov:RAMILA PATINO MD 05/22/19 Furosemide (FUROSEMIDE) 40 Mg Tablet, 40 MG PO DAILY for chf MDD 1, #60 TAB Prov:RAMILA PATINO MD 10/19/18 Reported Medications Lisinopril (LISINOPRIL) 20 Mg Tablet, 1 TAB PO DAILY for CHF for 30 Days, #30 07/08/20 Ipratropium [place] (IPRATROPIUM BROMIDE) 15 Ml [place], 2 SPRAYS NS BID 07/08/20 Metoprolol Succinate (METOPROLOL SUCCINATE ( XL )) 25 Mg Tab.er.24h, 1 TAB PO DAILY for CHF for 30 Days, #30 07/08/20 Pantoprazole Sodium (Pantoprazole Sodium) 40 Mg Tablet.dr, 1 TAB PO DAILY for GERD for 30 Days, #30 07/08/20 Gabapentin (GABAPENTIN ) 300 Mg Capsule, 300 MG PO DAILYWSUP for NEUROGENIC PAIN, CAP 06/30/19 Aspirin (ASPIRIN) 81 Mg Tab.chew, 81 MG PO DAILY for , TAB.CHEW 06/30/19 Lovastatin (LOVASTATIN) 40 Mg Tablet, 1 TAB PO DAILY, #90 TAB 3 Refills 12/14/14 Discontinued Reported Medications Gabapentin (GABAPENTIN) 600 Mg Tablet, 600 MG PO BIDWBK/TIERNEY for NEUROGENIC PAIN, TAB 06/30/19 Metoprolol Tartrate (METOPROLOL TARTRATE) 25 Mg Tablet, 25 MG PO BID for FOR HYPERTENSION, #60 TAB 0 Refills 06/30/19 ADDY POTTER MD Jul 08, 2020 16:12
[2020-07-08] MEDS ORDERED: DOXY100C2 PO (16:26)
[2020-07-08] MEDS ORDERED: PRED20TA PO (16:26)
[2020-07-08] MEDS ORDERED: GABAPENTIN 300 MG CAPSULE. PO SCH (17:00)
--- NOTE | 2020-07-08 17:20 | NUR ---
Discharge Note: RADHA CASILLAS [address] [place] [address] Discharge instructions and discharge home medications reviewed with Patient and a copy given. All questions have been answered and understanding verbalized. The following instructions and handouts were given: discharge instructions, COPD info, CHF info, COVID info, doxy & prednisone info. Discontinued lines and drains: Peripheral IV intact. Patient discharged to Home w/services with Spouse via Wheelchair at 1720.
[2020-07-08] MEDS ORDERED: PSYLLIUM HUSK (SUGAR FREE) 1 PKT PACKET PO SCH (21:00)
[2020-07-08] MEDS ORDERED: ATORVASTATIN CALCIUM 10 MG TABLET. PO SCH (21:00)
--- NOTE | 2020-07-09 09:57 | NUR ---
SW following. Pt discharged yesterday with HH orders and on . TAISHA called and spoke with pt who has home and [facility]. Pt COVID negative. TAISHA phoned and faxed HH discharge orders to [facility]. Cass from [facility] notified. No further SW needs at this time. Addendum: 07/09/20 at 1017 by HATTIE SUMNER Patient choice of vendor form completed
--- NOTE | 2020-07-10 16:53 | PDOC3 ---
Discharge Summary Visit Information Date of Admission: Jul 08, 2020 Date of Discharge: Jul 08, 2020 Admitting Diagnosis: Fever Final Diagnosis Problems Medical Problems: (1) CHF (congestive heart failure) Status: Acute (2) Elevated troponin Status: Acute Brief Hospital Course Allergies Allergies Coded Allergies Type Severity Reaction Last Updated Verified No Known Drug Allergies 10/16/18 No Brief Hospital Course Mr Holm is a 73 year old w/ PMHx BPH and prostate CA, sCHF EF 20-25% s/p AICD CAD s/p prior CABG, COPD on continuous home O2, High Cholesterol, post- herpetic neuralgia who presented to ED for worsening shortness of breath while he was at the [facility] with his .. He denies any significant cough, or chills. No chest pain, no headaches, no nausea, vomiting, diarrhea. He does have lower extremity edema. Chest x-ray was reviewed. He has cardiomegaly and mild interstitial markings suggestive of CHF. T-Max 102 F White cell count was 16.9, now down to 9.5, hemoglobin 9.8 and platelets are 136. BUN 20 and creatinine of 1.6. Lactic acid was 5.7, now 3.9. EKG consistent with normal sinus rhythm. Ventricular rate of 70 bpm. Left axis noted. T wave inversions noted in leads V2 and V3. No acute ST segment elevation appreciated. He improved quickly on antibiotics and with IV lasix. COVID-19 returned negative Consults: Pulm Problem list: Acute hypoxia - likely related to acute COPD exacerbation. Will consult pulmonology for his severe emphysema Pneumonia - with negative covid 19 and responsive to IV antibiotics he is discharging home on augmentin + doxycyline BPH and prostate CA - not on meds currently Acutes systolic CHF EF 20-25% s/p AICD - diuresed CAD s/p prior CABG - possible unstable angina currently with mildly elevated trop. will trend and consult cardiology COPD on continuous home O2 - as above High Cholesterol - cont statin Post-herpetic neuralgia - cont gabapentin Right toe pain - with onychomycosis and ulcer, will consult podiatry to see while in house Anemia - unclear etiology, likely of chronic disease, will check iron stores and type and screen as he should receive transfusion if Hb < 8 Greater than 135 minutes spent on same day admit and d/c Discharge Information Condition at Discharge: Improved Follow Up: Weeks (1) Disposition/Orders: D/C to Home w/ HH Scheduled Aspirin (Aspirin) 81 Mg Tab.chew, 81 MG PO DAILY for , (Reported) Entered as Reported by: China Samano on 06/30/191750 Last Action: Continued on 07/08/20755 by ADDY POTTER MD Doxycycline Hyclate (Doxycycline Hyclate) 100 Mg Capsule, 1 CAP PO BID for COPD for 10 Days, #20 Prescribed by: ADDY POTTER MD on 07/08/20 1626 Furosemide (Furosemide) 40 Mg Tablet, 40 MG PO DAILY for chf MDD 1, #60 Prescribed by: RAMILA PATINO on 10/19/18 1043 Last Action: Reviewed on 07/08/20318 by YUAN GOMEZ Gabapentin (Gabapentin ) 300 Mg Capsule, 300 MG PO DAILYWSUP for NEUROGENIC PAIN, (Reported) Entered as Reported by: China Samano on 06/30/191750 Last Action: Continued on 07/08/20926 by ADDY POTTER MD Ipratropium [place] (Ipratropium [place]) 15 Ml Ida, 2 SPRAYS NS BID, (Reported) Entered as Reported by: ADDY POTTER MD on 07/08/201608 Last Action: New Order on 07/08/201608 by ADDY POTTER MD Lisinopril (Lisinopril) 20 Mg Tablet, 1 TAB PO DAILY for CHF for 30 Days, #30 (Reported) Entered as Reported by: ADDY POTTER MD on 07/08/201608 Last Action: New Order on 07/08/201608 by ADDY POTTER MD Lovastatin (Lovastatin) 40 Mg Tablet, 1 TAB PO DAILY, #90 Ref 3 (Reported) Entered as Reported by: PORFIRIO STONE on 12/14/14 1145 Last Action: Converted on 07/08/20755 by ADDY POTTER MD Metoprolol Succinate (Metoprolol Succinate ( Xl )) 25 Mg Tab.er.24h, 1 TAB PO DAILY for CHF for 30 Days, #30 (Reported) Entered as Reported by: ADDY POTTER MD on 07/08/201608 Last Action: New Order on 07/08/201608 by ADDY POTTER MD Pantoprazole Sodium (Protonix ) 40 Mg Tablet.dr, 40 MG PO DAILYAC for GERD fo r 60 Days, #60 Prescribed by: RAMILA PATINO on 05/22/19 1244 Last Action: Continued on 07/08/20 0756 by ADDY POTTER MD Pantoprazole Sodium (Pantoprazole Sodium) 40 Mg Tablet.dr, 1 TAB PO DAILY for GERD for 30 Days, #30 (Reported) Entered as Reported by: ADDY POTTER MD on 07/08/201608 Last Action: New Order on 07/08/201608 by ADDY POTTER MD Prednisone (Prednisone) 20 Mg Tablet, 1 TAB PO DAILY for COPD for 5 Days, #5 Prescribed by: ADDY POTTER MD on 07/08/20 162 Discontinued Medications Gabapentin (Gabapentin) 600 Mg Tablet, 600 MG PO BIDWBKFT/TIERNEY for NEUROGENIC PAIN, (Reported) Entered as Reported by: China Samano on 06/30/191750 Last Action: Reviewed on 07/08/20318 by YUAN GOMEZ Metoprolol Tartrate (Metoprolol Tartrate) 25 Mg Tablet, 25 MG PO BID for FOR HYPERTENSION, #60 Ref 0 (Reported) Entered as Reported by: China Samano on 06/30/191750 Last Action: Discontinued on 07/08/20318 by YUAN GOMEZ Justicifation of Admission Dx: Justifications for Admission: Justification of Admission Dx: Yes Respiratory Failure: Severe Resp Distress DADY POTTER MD Jul 10, 2020 16:53
== END 2020-07-08 17:20 | disposition home health service (06) | DRG 291 ==
LOC: ER 19:44 → 6 SOUTH 07-08 00:20
PROVIDERS: ADMIT Internal Medicine; ATTEND Internal Medicine
PROC: 4B02XTZ Measurement of Cardiac Defibrillator, External Approach (ICD-10-PCS; principal; 2020-07-08)
DX: I13.0 Hypertensive heart and chronic kidney disease with heart failure and stage 1 through stage 4 chronic kidney disease, or unspecified chronic kidney disease (principal); I50.23 Acute on chronic systolic (congestive) heart failure; B02.29 Other postherpetic nervous system involvement; E87.2 Acidosis; J96.11 Chronic respiratory failure with hypoxia; Z20.828 Contact with and (suspected) exposure to other viral communicable diseases; I42.9 Cardiomyopathy, unspecified; I25.10 Atherosclerotic heart disease of native coronary artery without angina pectoris; N18.2 Chronic kidney disease, stage 2 (mild); E78.5 Hyperlipidemia, unspecified; B35.1 Tinea unguium; R91.1 Solitary pulmonary nodule; K57.90 Diverticulosis of intestine, part unspecified, without perforation or abscess without bleeding; K21.9 Gastro-esophageal reflux disease without esophagitis; C61 Malignant neoplasm of prostate; D72.829 Elevated white blood cell count, unspecified; E78.00 Pure hypercholesterolemia, unspecified; J43.9 Emphysema, unspecified; D64.9 Anemia, unspecified; M79.2 Neuralgia and neuritis, unspecified; N40.0 Benign prostatic hyperplasia without lower urinary tract symptoms; Z99.81 Dependence on supplemental oxygen; Z95.1 Presence of aortocoronary bypass graft; Z95.810 Presence of automatic (implantable) cardiac defibrillator; Z87.891 Personal history of nicotine dependence; Z82.49 Family history of ischemic heart disease and other diseases of the circulatory system
CPT/HCPCS: 36415; 36600; 71045; 80048; 80053; 82805; 83605; 83880; 84484; 85007; 85025; 87040; 93005; 94640; 94660; 96361; 96365; 96368; 96375; J1940; J2543; J2930; J3370; J7030; J7040; 99285-25; G0378; U0003-CS

== ENCOUNTER 2020-08-26 14:09 | Emergency (ER) | payer MEDICARE, BC ==
[~2020-08-26] VITALS: Ht 175.3 cm; Wt 100.0 kg
[~2020-08-26 14:09] MED LIST changes: +DOXY100C2 PO; +IPRA15SP NS; +METO-239 PO; +PANT40TA6 PO
[2020-08-26] MEDS ORDERED: IV NORMAL SALINE 1000ML BAG 1,000 ML IV ONE (14:45)
--- NOTE | 2020-08-26 14:54 | PHYS DOC ---
Past Medical History Past Medical History: Arrhythmia, CAD, COPD, High Cholesterol Additional Past Medical Histor: shingles Past Surgical History: Coronary Bypass Surgery, Pacemaker Additional Past Surgical Histo: pacemaker/defibrillator Smoking Status: Former Smoker Alcohol Use: None Drug Use: None General Adult EDM: Chief Complaint: NEAR SYNCOPE HPI: HPI: 75-year-old male presenting the emergency department after feeling lightheaded when he was walking to his car in his driveway. He had to lay down because he felt so lightheaded. He did not pass out. He denies any palpitations. He denies abdominal pain or diarrhea. He yesterday was feeling normally. He reports mildly decreased oral intake of fluids. He denies chest pain or shortness of breath. He denies headache. EMS was called. They brought him in for further evaluation and treatment. Review of systems negative for chest pain shortness of breath abdominal pain diarrhea vomiting fevers chills cough. All other review of systems negative. ED course: 75-year-old male presenting with lightheadedness found to be hypotensive. He was given IV fluids in the emergency department. Blood work ordered. Hemoglobin at 9.1 which is baseline. Creatinine of 1.4. Which is baseline for the patient. proBNP of 4441. Troponin within normal limits. I spoke with the patient. Based on his age and his presyncopal episode and his low blood pressure I recommended he be admitted for monitoring however the patient does not want to be admitted. He understands the risks of disability and pain. He is feeling better and his blood pressure is come up with IV fluids here in the emergency room. He is able to make medical decisions. He then left AMA. Heart Score: Risk Factors: Risk Factors: DM, Current or recent (<one month) smoker, HTN, HLP, family history of CAD, obesity. Risk Scores: Score 0 - 3: 2.5% MACE over next 6 weeks - Discharge Home Score 4 - 6: 20.3% MACE over next 6 weeks - Admit for Clinical Observation Score 7 - 10: 72.7% MACE over next 6 weeks - Early Invasive Strategies Current Medications: Current Medications Medications (Trade) Dose Ordered Sig/Minerva Start Time Stop Time Status Last Admin Dose Admin Sodium Chloride 1,000 ml @ 1,000 mls/hr 1X ONCE 08/26/20 14:45 08/26/20 15:44 Allergies: Allergies: Allergies Coded Allergies Type Severity Reaction Last Updated Verified No Known Drug Allergies 10/16/18 No Physical Exam: PE: Constitutional: Well developed, well nourished, no acute distress, non-toxic appearance. [] HENT: Normocephalic, atraumatic, bilateral external ears normal, oropharynx moist, no oral exudates, nose normal. [] Eyes: PERRLA, EOMI, conjunctiva normal, no discharge. [] Neck: Normal range of motion, no tenderness, supple, no stridor. [] Cardiovascular:Heart rate regular rhythm, no murmur [] Lungs & Thorax: Bilateral breath sounds clear to auscultation [] Abdomen: Bowel sounds normal, soft, no tenderness, no masses, no pulsatile masses. [] Skin: Warm, dry, no erythema, no rash. [] Back: No tenderness, no CVA tenderness. [] Extremities: No tenderness, no cyanosis, no clubbing, ROM intact, no edema. [] Neurologic: Mental status: Awake oriented and alert x3 Cranial nerves: Extraocular movements intact, eyebrows tommy bilaterally, smile symmetric, uvula elevation nl, shoulder shrug intact bilaterally, tongue protrusion normal DTRs: 2+ Sensation: equal and normal in all extremities Strength: 5/5 in upper and lower extremities bilaterally Psychologic: Affect normal, judgement normal, mood normal. [] EKG: EKG: [] Radiology/Procedures: Radiology/Procedures: [] Course & Med Decision Making: Course & Med Decision Making Pertinent Labs and Imaging studies reviewed. (See chart for details) [] Dragon Disclaimer: Dragon Disclaimer: This electronic medical record was generated, in whole or in part, using a voice recognition dictation system. Departure Departure Impression: Primary Impression: Hypotension Additional Impression: Pre-syncope Disposition: 07 AMA/ELOPED/LWBS Condition: GUARDED Referrals: BOZENA GARCIAS MD (PCP) Patient Instructions: Dizziness Additional Instructions: Please return to the emergency department if you change your mind. We recommended you admit to the hospital. LATIA TODD MD Aug 26, 2020 14:54
[2020-08-26 15:02] LABS: BASO # 0.1 x10^3/uL (0.0-0.2); BASO % 1 % (0-3); EOS # 0.3 x10^3/uL (0.0-0.7); EOS % 4 % (0-3); HEMATOCRIT 28.5 % (39.0-53.0); HEMOGLOBIN 9.1 g/dL (13.0-17.5); LYMPH % 14 % (24-48); MEAN CORPUSCULAR HEMOGLOBIN 28 pg (25-35); MEAN CORPUSCULAR HGB CONC 32 g/dL (31-37); MEAN CORPUSCULAR VOLUME 88 fL (79-100); MONO # 0.8 x10^3/uL (0.0-1.1); MONO % 11 % (0-9); NEUT # 4.8 x10^3/uL (1.8-7.7); NEUT % 70 % (31-73); PLATELET COUNT 173 x10^3/uL (140-400); RED BLOOD COUNT 3.26 x10^6/uL (4.30-5.70); RED CELL DISTRIBUTION WIDTH 19.1 % (11.5-14.5)
[2020-08-26 15:12] LABS: PROTHROMBIN TIME PATIENT 14.6 SEC (11.7-14.0)
--- NOTE | 2020-08-26 15:15 | RAD ---
INDICATION: Reason: chest pain / Spl. Instructions: / History: COMPARISON: July 07, 2020 FINDINGS: Single view of chest obtained. Poststernotomy changes with enlarged cardiac silhouette again seen as well as AICD. Relative lucency at right lung apex could be secondary to emphysematous changes with bullous changes. Disorganized pulmonary markings are again seen throughout the bilateral lungs. Interstitial and groundglass opacities IMPRESSION: * Disorganized pulmonary markings bilaterally with bullous changes which can be seen with emphysema. * There is some interstitial and groundglass opacities which appear slightly increased from baseline and could be from edema or infiltrate. * Enlarged cardiomediastinal silhouette with calcific atherosclerosis and postoperative changes. Electronically signed by: Spike Healy MD (08/26/2020 3:12 PM) [id number]
[2020-08-26 15:18] LABS: CALCIUM 8.3 mg/dL (8.5-10.1); CREATININE 1.4 mg/dL (0.7-1.3); GFR 49.1; POTASSIUM 3.6 mmol/L (3.5-5.1)
[2020-08-26 15:28] LABS: ALBUMIN 3.2 g/dL (3.4-5.0); DIRECT BILIRUBIN 0.2 mg/dL (0.0-0.2); TOTAL BILIRUBIN 0.7 mg/dL (0.2-1.0); TOTAL PROTEIN 6.7 g/dL (6.4-8.2)
[2020-08-26 16:30] VITALS: BP 110/55
== END 2020-08-26 17:45 | disposition left against medical advice (07) ==
LOC: ER 14:09
DX: I95.9 Hypotension, unspecified (principal); R55 Syncope and collapse; R42 Dizziness and giddiness; J44.9 Chronic obstructive pulmonary disease, unspecified; E78.00 Pure hypercholesterolemia, unspecified; I25.10 Atherosclerotic heart disease of native coronary artery without angina pectoris; Z98.890 Other specified postprocedural states; Z95.0 Presence of cardiac pacemaker; Z87.891 Personal history of nicotine dependence
CPT/HCPCS: 36415; 71045; 80048; 80076; 83690; 83880; 84484; 85025; 85610; 93005; 96360; 99285; J7030

== ENCOUNTER 2020-10-01 12:31 | Emergency (ER) | payer MEDICARE, BC ==
[~2020-10-01] VITALS: Ht 182.9 cm; Wt 94.2 kg
--- NOTE | 2020-10-01 13:06 | PHYS DOC ---
Past Medical History Past Medical History: Arrhythmia, CAD, COPD, High Cholesterol Additional Past Medical Histor: shingles Past Surgical History: Coronary Bypass Surgery, Pacemaker Additional Past Surgical Histo: pacemaker/defibrillator Smoking Status: Former Smoker Alcohol Use: None Drug Use: None General Adult EDM: Chief Complaint: CONTISPATION HPI: HPI: Patient is a 75 year old male who presents with constipation with lower back pain bilaterally for the last 10 days. He states that he has tried 3 times with glycerin suppositories, he took mag citrate about 5 days ago with only water coming out but no stool. He states on Sunday he went to his primary care who stated that if he does not have a bowel movement by Sunday he need to come to the emergency room. He states he still been eating and drinking appropriately. States he has 1 beer at night. He denies vomiting, diarrhea, abdominal pain, urinary symptoms, fever, chest pain, shortness of air, headache, dizziness, vision changes. Review of Systems: Review of Systems: Constitutional: Denies fever or chills. [] Eyes: Denies change in visual acuity. [] HENT: Denies nasal congestion or sore throat. [] Respiratory: Denies cough or shortness of breath. [] Cardiovascular: Denies chest pain or edema. [] GI: Denies abdominal pain, nausea, vomiting, bloody stools or diarrhea. + Constipation [] : Denies dysuria. [] Musculoskeletal: Denies back pain or joint pain. + Bilateral lower back [] Integument: Denies rash. [] Neurologic: Denies headache, focal weakness or sensory changes. [] Endocrine: Denies polyuria or polydipsia. [] Lymphatic: Denies swollen glands. [] Psychiatric: Denies depression or anxiety. [] Heart Score: Risk Factors: Risk Factors: DM, Current or recent (<one month) smoker, HTN, HLP, family history of CAD, obesity. Risk Scores: Score 0 - 3: 2.5% MACE over next 6 weeks - Discharge Home Score 4 - 6: 20.3% MACE over next 6 weeks - Admit for Clinical Observation Score 7 - 10: 72.7% MACE over next 6 weeks - Early Invasive Strategies Allergies: Allergies: Allergies Coded Allergies Type Severity Reaction Last Updated Verified No Known Drug Allergies 10/16/18 No Physical Exam: PE: Constitutional: Well developed, well nourished, no acute distress, non-toxic appearance. [] HENT: Normocephalic, atraumatic, bilateral external ears normal, oropharynx moist, no oral exudates, nose normal. [] Eyes: PERRLA, EOMI, conjunctiva normal, no discharge. [] Neck: Normal range of motion, no tenderness, supple, no stridor. [] Cardiovascular:Heart rate regular rhythm, no murmur [] Lungs & Thorax: Bilateral breath sounds clear to auscultation [] Abdomen: Bowel sounds normal, tight, no tenderness, no masses, no pulsatile masses. [] Skin: Warm, dry, no erythema, no rash. [] Back: No tenderness, no CVA tenderness. [] Extremities: No tenderness, no cyanosis, no clubbing, ROM intact, no edema. [] Neurologic: Alert and oriented X 3, normal motor function, normal sensory function, no focal deficits noted. [] Psychologic: Affect normal, judgement normal, mood normal. [] EKG: EKG: [] Radiology/Procedures: Radiology/Procedures: [] Impression: [facility] [address] [place] [address] IMAGING REPORT Signed PATIENT: RADHA CASILLAS ACCOUNT: [id number] : 1945 LOCATION: ER AGE: 75 SEX: M EXAM STATUS: REG ER ORD. PHYSICIAN: ARNEL OCASIO APRN REASON: constipation, flank pain PROCEDURE: CT ABDOMEN PELVIS WO CONTRAST CT abdomen and pelvis without contrast PQRS statement: CT scans at this facility use dose reduction including either automated exposure control, iterative reconstructions, and /or weight based radiation dosing via mA and kV modification when appropriate to reduce radiation dose to as low as reasonably achievable. HISTORY: Constipation. Flank pain. Abdomen findings: Emphysematous change lung bases. Cardiac pacemaker. Coronary calcified plaque. Lumbar disc disease with disc osteophytes with spinal canal stenoses. There is a T11 vertebral compression fracture which demonstrates increased height loss since CT imaging from September 17, 2020 with 50 percent height loss, previously was 25 percent, no bony retropulsion, increased bony sclerosis likely from impaction of the trabecular bone. 2 center oblong indeterminate right adrenal nodule density 37 units. Right renal cysts largest measuring 2 cm densities of less than 20 units. Mild bilateral perinephric stranding edema. 1 mm right renal upper pole nonobstructing calculus. No ureteral calculi or hydronephrosis. Liver, gallbladder, left adrenal, pancreas and spleen are unremarkable. No obstruction or inflammation the GI tract. Appendix is negative. There is subtle groundglass density along the right lateral wall of the ascending colon which may be inflammatory edema best demonstrated axial images 56-57 and coronal images 21-22, this segment of the colon also demonstrates luminal collapse and some wall thickening for length of 5 cm, localized inflammation from diverticulitis is possible. The short segment of involvement is not typical of colitis. Colonic diverticulosis is noted. A concentric stricture from colonic malignancy is not excluded. Aortoiliac calcified plaque and borderline aneurysm abdominal aorta diameter 2.9 cm. No abdominal fluid. Pelvis findings: No bladder calculi. Prostate, rectum and bones are unremarkable. IMPRESSION: 1. No urinary calculi. No hydronephrosis. Appendix is negative. 2. Mild groundglass edema along the lateral wall descending colon may indicate localized inflammation, the etiology is uncertain. This could represent mild edema from low-grade diverticulitis, or mild changes of fat infarction. There is a 5 cm segment of the ascending colon which demonstrates luminal narrowing and wall thickening adjacent of the edema which could be inflammatory thickening or could indicate a malignant stricture. 3. 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 Electronically signed by: Sean Sellers MD (10/01/2020 1:50 PM) [id number] DICTATED and SIGNED BY: SEAN SELLERS MD DATE: 10/01/20 [id number] 0 Course & Med Decision Making: Course & Med Decision Making Pertinent Labs and Imaging studies reviewed. (See chart for details) See HPI. Speaks in full complete sentences. Ambulatory to steady gait. Abdomen is tight but no tenderness. No CVA tenderness. Skin pink warm and dry. Alert and oriented x4. IMPRESSION: 1. No urinary calculi. No hydronephrosis. Appendix is negative. 2. Mild groundglass edema along the lateral wall descending colon may indicate localized inflammation, the etiology is uncertain. This could represent mild edema from low-grade diverticulitis, or mild changes of fat infarction. There is a 5 cm segment of the ascending colon which demonstrates luminal narrowing and wall thickening adjacent of the edema which could be inflammatory thickening or could indicate a malignant stricture. 3. 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 Myself and Dr De La Garza wanted to speak with the patient about patient findings. Patient was offered admission but he states he does not want to be here and wants to go home. Dr. De La Garza and myself feel that the patient is stable enough to go home. He states to have the patient stay on a clear liquid diet for the next 48 hours. He come back if he is not getting better. Dr. De La Garza states to give the patient an enema and do a CRP and if the CRP is elevated 10- 15 that drainage send him home with Augmentin. I have printed off the patient CT findings and he the patient is to take it to his primary care provider. Patient will also be referred to a gastrointestinal doctor. Patient continues to state that he has no discomfort and his only complaint is he cannot have a stool. It was also discussed with patient about the findings of a possible malignancy. Patient states his understanding. Patient states his understanding that is important to follow-up with his primary care doctor or GI doctor for further testing such as a colonoscopy or further imaging. Patient will be given an enema here in the ED. [] Dragon Disclaimer: Dragon Disclaimer: This electronic medical record was generated, in whole or in part, using a voice recognition dictation system. Departure Departure Impression: Primary Impression: Constipation Qualified Codes: K59.00 - Constipation, unspecified Additional Impression: Diverticulitis Disposition: ND HOME SELF CARE/HOMELESS Condition: STABLE Referrals: BOZENA GARCIAS MD (PCP) SÁNCHEZ SANDERS MD Patient Instructions: Constipation, Adult, Diverticulitis, [id number] Additional Instructions: Take the CT findings night prior to offer you and take them to your primary care or have referred you to a gastrointestinal doctor. Stay on a clear liquid diet for the next 48 hours. Take all medication as prescribed. If symptoms worsen or you are not able to still have a bowel movement after 48 hours return to the emergency room. Scripts Amoxicillin/Potassium Clav (AMOX TR-K CLV 500-125 MG TAB) 1 Each Tablet 1 TAB PO BID, #14 TAB Prov: ARNEL OCASIO APRN 10/01/20 Sennosides/Docusate Sodium (SENNA PLUS TABLET) 1 Each Tablet 2 TAB PO QHS for 14 Days, #28 TAB 0 Refills Prov: ARNEL OCASIO APRN 10/01/20 ARNEL OCASIO APRN Oct 01, 2020 13:06
[2020-10-01 13:33] LABS: BASO # 0.1 x10^3/uL (0.0-0.2); BASO % 2 % (0-3); EOS # 0.4 x10^3/uL (0.0-0.7); EOS % 6 % (0-3); HEMATOCRIT 30.2 % (39.0-53.0); HEMOGLOBIN 9.5 g/dL (13.0-17.5); LYMPH # 0.8 x10^3/uL (1.0-4.8); LYMPH % 13 % (24-48); MEAN CORPUSCULAR HEMOGLOBIN 26 pg (25-35); MEAN CORPUSCULAR HGB CONC 31 g/dL (31-37); MEAN CORPUSCULAR VOLUME 83 fL (79-100); MONO # 0.7 x10^3/uL (0.0-1.1); MONO % 11 % (0-9); NEUT # 4.5 x10^3/uL (1.8-7.7); NEUT % 69 % (31-73); PLATELET COUNT 202 x10^3/uL (140-400); RED BLOOD COUNT 3.64 x10^6/uL (4.30-5.70); RED CELL DISTRIBUTION WIDTH 19.5 % (11.5-14.5); WHITE BLOOD COUNT 6.5 x10^3/uL (4.0-11.0)
[2020-10-01 13:47] LABS: CALCIUM 8.7 mg/dL (8.5-10.1); CREATININE 1.4 mg/dL (0.7-1.3); GFR 49.1; POTASSIUM 3.9 mmol/L (3.5-5.1)
--- NOTE | 2020-10-01 13:53 | RAD ---
CT abdomen and pelvis without contrast PQRS statement: CT scans at this facility use dose reduction including either automated exposure control, iterative reconstructions, and /or weight based radiation dosing via mA and kV modification when appropriate to reduce radiation dose to as low as reasonably achievable. HISTORY: Constipation. Flank pain. Abdomen findings: Emphysematous change lung bases. Cardiac pacemaker. Coronary calcified plaque. Lumbar disc disease with disc osteophytes with spinal canal stenoses. There is a T11 vertebral compression fracture which demonstrates increased height loss since CT imaging from September 17, 2020 with 50 percent height loss, previously was 25 percent, no bony retropulsion, increased bony sclerosis likely from impaction of the trabecular bone. 2 center oblong indeterminate right adrenal nodule density 37 units. Right renal cysts largest measuring 2 cm densities of less than 20 units. Mild bilateral perinephric stranding edema. 1 mm right renal upper pole nonobstructing calculus. No ureteral calculi or hydronephrosis. Liver, gallbladder, left adrenal, pancreas and spleen are unremarkable. No obstruction or inflammation the GI tract. Appendix is negative. There is subtle groundglass density along the right lateral wall of the ascending colon which may be inflammatory edema best demonstrated axial images 56-57 and coronal images 21-22, this segment of the colon also demonstrates luminal collapse and some wall thickening for length of 5 cm, localized inflammation from diverticulitis is possible. The short segment of involvement is not typical of colitis. Colonic diverticulosis is noted. A concentric stricture from colonic malignancy is not excluded. Aortoiliac calcified plaque and borderline aneurysm abdominal aorta diameter 2.9 cm. No abdominal fluid. Pelvis findings: No bladder calculi. Prostate, rectum and bones are unremarkable. IMPRESSION: 1. No urinary calculi. No hydronephrosis. Appendix is negative. 2. Mild groundglass edema along the lateral wall descending colon may indicate localized inflammation, the etiology is uncertain. This could represent mild edema from low-grade diverticulitis, or mild changes of fat infarction. There is a 5 cm segment of the ascending colon which demonstrates luminal narrowing and wall thickening adjacent of the edema which could be inflammatory thickening or could indicate a malignant stricture. 3. 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 Electronically signed by: Kam Sellers MD (10/01/2020 1:50 PM) [id number]
[2020-10-01 13:58] LABS: ALBUMIN 3.6 g/dL (3.4-5.0); ALBUMIN/GLOBULIN RATIO 0.9 (1.0-1.7); TOTAL BILIRUBIN 0.7 mg/dL (0.2-1.0); TOTAL PROTEIN 7.5 g/dL (6.4-8.2)
[2020-10-01] MEDS ORDERED: SENN1TAB62 PO (15:07)
[2020-10-01] MEDS ORDERED: AMOX1TAB10 PO (15:08)
[2020-10-01 15:18] VITALS: BP 126/74
[2020-10-01] MEDS ORDERED: DOCUSATE SODIUM 283 MG/5 ML ENEMA. PR ONE (15:30)
[2020-10-01 15:44] LABS: BILIRUBIN,URINE NEGATIVE (NEG); CLARITY,URINE CLEAR; COLOR,URINE YELLOW; NITRITE,URINE NEGATIVE (NEG); PH,URINE 7.5 (<5.0-8.0); PROTEIN,URINE NEGATIVE (NEG-TRACE); UROBILINOGEN,URINE 0.2 mg/dL (0.2 mg/dL)
[2020-10-01 15:50] LABS: BACTERIA,URINE 0 /HPF (0-FEW); RBC,URINE 0 /HPF (0-2); WBC,URINE OCC /HPF (0-4)
== END 2020-10-01 16:35 | disposition home or self-care (01) ==
LOC: ER 12:31
DX: K57.92 Diverticulitis of intestine, part unspecified, without perforation or abscess without bleeding (principal); K59.00 Constipation, unspecified; I25.10 Atherosclerotic heart disease of native coronary artery without angina pectoris; J44.9 Chronic obstructive pulmonary disease, unspecified; E78.00 Pure hypercholesterolemia, unspecified; Z95.1 Presence of aortocoronary bypass graft; Z95.0 Presence of cardiac pacemaker; Z87.891 Personal history of nicotine dependence
CPT/HCPCS: 36415; 74176; 80053; 81001; 83605; 83690; 85025; 86140; 99284

== ENCOUNTER → 2020-10-27 | Outpatient (CLI) | payer MEDICARE, BC ==
[2020-10-17 12:00] VITALS: BP 114/62
[~2020-10-27] MED LIST changes: +AMOX1TAB10 PO; +LIDOCAINE 2% PF 5 ML VIAL. ONE; +LISI-338 PO; +PROPOFOL 10 MG/ML (20ML) VIAL. IV ONE; +SENN1TAB62 PO; +diphenhydrAMINE 50 MG/ML VIAL ONE; +fentaNYL PF VIAL 100 MCG/2 ML VIAL ONE
--- NOTE | 2020-10-27 17:10 | CARD ---
MR#: [id number] Date of Study: 10/27/2020 Ordering Physician: ABDON PUCKETT, Referring Physician: ABDON PUCKETT, Tech: Halie Colon [facility] APPROVED REPORT EXAM: Two-dimensional and M-mode echocardiogram with Doppler and color Doppler. Other Information Quality : Average INDICATION COPD CAD Surgery/Intervention Pacemaker: CABG: RISK FACTORS Hypertension Hyperlipidemia 2D DIMENSIONS RVDd3.7 (2.9-3.5cm)Left Atrium(2D)5.5 (1.6-4.0cm) IVSd1.1 (0.7-1.1cm)Aortic Root(2D)3.1 (2.0-3.7cm) LVDd6.4 (3.9-5.9cm)LVOT Diameter2.1 (1.8-2.4cm) PWd1.2 (0.7-1.1cm)LVDs4.9 (2.5-4.0cm) FS (%) 23.4 %SV97.1 ml Aortic Valve AoV Peak Juan.95.0cm/sAoV VTI16.4cm AO Peak GR.3.6mmHgLVOT Peak Juan.78.4cm/s AO Mean GR.2mmHgAVA (VMAX)2.74cm2 Mitral Valve MV E Nmscfqpb84.6cm/sMV DECEL [id number] MV A Djraygju84.6cm/sE/A Ratio3.3 Pulmonary Valve PV Peak Vzsaimlb28.2cm/s Tricuspid Valve TR P. Czaquoci185vp/sTR Peak Gr.46mmHg Pulmonary Vein S1 Rgxsqqew26.2cm/sD2 Hxysdvzm38.8cm/s LEFT VENTRICLE The Left Ventricle is mild to moderately dilated. There is mild concentric left ventricular hypertrop hy. The systolic function is moderately to severely impaired. The ejection fraction is 30-35% There i s global hypokinesis of the left ventricle. RIGHT VENTRICLE The right ventricle is mildly dilated. There is normal right ventricular wall thickness. Systolic fun ction mildly reduced. ATRIA The left atrium is mildly dilated. The right atrium is mildly dilated. The interatrial septum is inta ct with no evidence for an atrial septal defect or patent foramen ovale as noted on 2-D or Doppler im aging. AORTIC VALVE The aortic valve is normal in structure and function. Doppler and Color Flow revealed no significant aortic regurgitation. There is no significant aortic valvular stenosis. MITRAL VALVE The mitral valve is normal in structure and function. There is no evidence of mitral valve prolapse. There is no mitral valve stenosis. Doppler and Color Flow revealed at least moderate eccentric mitral regurgitation. TRICUSPID VALVE The tricuspid valve is normal in structure and function. Doppler and Color Flow revealed mild tricusp id valve regurgitation noted. Estimated PAP >50 mmHg. PULMONIC VALVE The pulmonary valve is normal in structure and function. Doppler and Color Flow revealed no pulmonic valvular regurgitation. GREAT VESSELS The aortic root is normal in size. IVC dialated with blunted response with respiration. PERICARDIAL EFFUSION There is no evidence of significant pericardial effusion. Critical Notification Critical Value: No <Conclusion> The Left Ventricle is mild to moderately dilated. The systolic function is moderately to severely impaired. The ejection fraction is 30-35% There is global hypokinesis of the left ventricle. There is mild concentric left ventricular hypertrophy. Doppler and Color Flow revealed no significant aortic regurgitation. There is no significant aortic valvular stenosis. Doppler and Color Flow revealed at least moderate eccentric mitral regurgitation. Doppler and Color Flow revealed mild tricuspid valve regurgitation noted. Estimated PAP >50 mmHg. Signed by : Abdon Puckett MD Electronically Approved : 10/27/2020 17:10:22
== END ==
LOC: ECHO 12:47
PROVIDERS: ATTEND Internal Medicine Cardiovascular Disease
DX: I08.1 Rheumatic disorders of both mitral and tricuspid valves (principal); I25.10 Atherosclerotic heart disease of native coronary artery without angina pectoris; J44.9 Chronic obstructive pulmonary disease, unspecified
CPT/HCPCS: 93306; J1200; J2704; J3010

== ENCOUNTER 2020-12-29 10:52 | Inpatient (IN) | payer MEDICARE, BC ==
[~2020-12-29] VITALS: Ht 180.3 cm; Wt 110.0 kg
[~2020-12-29 10:52] MED LIST changes: -LIDOCAINE 2% PF 5 ML VIAL. ONE; -LISI-334 PO; -LISI-338 PO; +LISI-517 PO; +LISI10TA16 PO; -LISI10TA2 PO; +LISI20TA18 PO; -PROPOFOL 10 MG/ML (20ML) VIAL. IV ONE; -diphenhydrAMINE 50 MG/ML VIAL ONE; -fentaNYL PF VIAL 100 MCG/2 ML VIAL ONE
--- NOTE | 2020-12-29 11:18 | PHYS DOC ---
Past Medical History Past Medical History: Arrhythmia, CAD, Constipation, COPD, High Cholesterol, Other Additional Past Medical Histor: shingles Past Surgical History: Coronary Bypass Surgery, Pacemaker Additional Past Surgical Histo: pacemaker/defibrillator Smoking Status: Former Smoker Alcohol Use: Occasionally Drug Use: None General Adult EDM: Chief Complaint: abd pain and bruising HPI: HPI: This is a pleasant 75-year-old male presenting to the emergency department today with abdominal pain in the anterior epigastric region with bruising to the anterior abdominal wall. Was seen in clinic and sent here for further evaluation. He did have a fall however it was 3 weeks ago and they did not notice any bruising after the fall. They just noticed the bruising today. Raffaele aden reports a history of colon cancer but denies having seen an oncologist. His pain is a sharp shooting pain. He uses laxatives regularly to maintain a normal bowel movement. His last bowel movement was last night. He denies nausea vomiting fevers or chills. He denies any rashes. He has had a worsening shortness of breath and cough over the past 2 weeks. His cough is nonp roductive. The pain is moderate sharp intermittent nonradiating without alleviating factors. Review of systems is negative for chest pain shortness of breath headache fevers chills. All other review of systems negative. ED course: 75-year-old male presenting with anterior epigastric wall pain with some bruising anteriorly. EKG obtained and shows paced rhythm with a regular rate. ST segments show repolarization. Neg scarbossa. Not suggestive of acute ischemia. vital signs unremarkable. CT shows new daren hepatic fluid. h/h 7.2 similar to previous in October of 2020. VQ shows low probability of PE. CXR shows increasing pulm fluid. I spoke to the radiologist who reported chronic changes. There is new perihepatic fluid. Given the patient's linear ecchymosis over the abdomen we considered traumatic injury however the patient denies falling that he can remember and the radiologist favors perihepatic fluid non traumatic. I spoke with our trauma surgeon Dr. Mendieta who will see the patient in consultation. In the interim, I called Dr. Anaya who accepts patient for admission to the hospital. He accepts the pt for admission to the hospital. Review of Systems: Review of Systems: Constitutional: Denies fever or chills. [] Eyes: Denies change in visual acuity. [] HENT: Denies nasal congestion Respiratory: per hpi Cardiovascular: Denies chest pain or edema. [] GI: Denies nausea, vomiting, bloody stools or diarrhea. [] : Denies dysuria. [] Musculoskeletal: Denies back pain or joint pain. [] Integument: Denies rash. [] Neurologic: Denies headache, focal weakness or sensory changes. [] Endocrine: Denies polyuria or polydipsia. [] Lymphatic: Denies swollen glands. [] Heart Score: Risk Factors: Risk Factors: DM, Current or recent (<one month) smoker, HTN, HLP, family history of CAD, obesity. Risk Scores: Score 0 - 3: 2.5% MACE over next 6 weeks - Discharge Home Score 4 - 6: 20.3% MACE over next 6 weeks - Admit for Clinical Observation Score 7 - 10: 72.7% MACE over next 6 weeks - Early Invasive Strategies Allergies: Allergies: Allergies Coded Allergies Type Severity Reaction Last Updated Verified No Known Drug Allergies 10/15/20 No Physical Exam: PE: Constitutional: Well developed, well nourished, mildly tachypneic with nl breath sounds, non-toxic appearance. HENT: Normocephalic, atraumatic, bilateral external ears normal, oropharynx moist, no oral exudates, nose normal. [] Eyes: PERRLA, EOMI, conjunctiva normal, no discharge. [] Neck: Normal range of motion, no tenderness, supple, no stridor. [] trachea midline. Cardiovascular:Heart rate regular rhythm, no murmur [] Lungs & Thorax: Bilateral breath sounds clear to auscultation [] no crepitus to palpation. Abdomen: Bowel sounds normal, soft, no tenderness, no masses, no rebound tenderness or gaurding. neg murphys sign. neg mcburneys point. echymosis in epigastrum. Skin: Warm, dry, no erythema, no rash. [] Back: No tenderness, no CVA tenderness. [] Extremities: No tenderness, no cyanosis, no clubbing, ROM intact, no edema. [] Neurologic: Alert and oriented X 3, normal motor function, normal sensory function, no focal deficits noted. [] Psychologic: Affect normal, judgement normal, mood normal. [] EKG: EKG: [] Radiology/Procedures: Radiology/Procedures: [] Course & Med Decision Making: Course & Med Decision Making Pertinent Labs and Imaging studies reviewed. (See chart for details) [] Dragon Disclaimer: Dragon Disclaimer: This electronic medical record was generated, in whole or in part, using a voice recognition dictation system. Departure Departure Impression: Primary Impression: Abdominal pain Disposition: ADMITTED INPT THIS HOSP Admitting Physician: HIMS Condition: STABLE Referrals: BOZENA GARCIAS MD (PCP) LATIA TODD MD Dec 29, 2020 11:17
[2020-12-29 11:34] LABS: BASO # 0.1 x10^3/uL (0.0-0.2); BASO % 2 % (0-3); EOS # 0.2 x10^3/uL (0.0-0.7); EOS % 3 % (0-3); HEMATOCRIT 24.6 % (39.0-53.0); HEMOGLOBIN 7.2 g/dL (13.0-17.5); LYMPH # 0.7 x10^3/uL (1.0-4.8); LYMPH % 10 % (24-48); MEAN CORPUSCULAR HEMOGLOBIN 22 pg (25-35); MEAN CORPUSCULAR HGB CONC 29 g/dL (31-37); MEAN CORPUSCULAR VOLUME 76 fL (79-100); MONO # 0.7 x10^3/uL (0.0-1.1); MONO % 10 % (0-9); NEUT # 5.3 x10^3/uL (1.8-7.7); NEUT % 75 % (31-73); PLATELET COUNT 180 x10^3/uL (140-400); RED BLOOD COUNT 3.24 x10^6/uL (4.30-5.70); RED CELL DISTRIBUTION WIDTH 20.5 % (11.5-14.5); WHITE BLOOD COUNT 7.1 x10^3/uL (4.0-11.0)
[2020-12-29 11:44] LABS: PROTHROMBIN TIME PATIENT 17.6 SEC (11.7-14.0)
[2020-12-29 11:48] LABS: CREATININE 1.6 mg/dL (0.7-1.3); GFR 42.1; POTASSIUM 4.5 mmol/L (3.5-5.1)
--- NOTE | 2020-12-29 11:48 | RAD ---
Single view chest INDICATION: Chest pain, shortness of air COMPARISON: Chest x-rays of 10/11/2020, 09/17/2020, 08/26/2020 and 07/07/2020 FINDINGS: Stable moderate cardiomegaly with left chest multichamber AICD redemonstrated. Mediastinum is normal in caliber with aortic calcification noted. Lungs show bullous emphysema of the right lung apex and slight increase in interstitial markings most notably at the left lung base. No pneumothorax or pleural effusion. Bony thorax intact. No free air under the diaphragms IMPRESSION: Cardiomegaly with emphysema and increasing interstitial opacities that could represent mild pulmonary fluid overload.
[2020-12-29 11:53] LABS: ALBUMIN 3.1 g/dL (3.4-5.0); DIRECT BILIRUBIN 0.6 mg/dL (0.0-0.2); TOTAL BILIRUBIN 1.6 mg/dL (0.2-1.0); TOTAL PROTEIN 6.5 g/dL (6.4-8.2)
[2020-12-29] MEDS ORDERED: PHYTONADIONE 10 MG/ML AMPUL. SQ ONE (12:30)
[2020-12-29] MEDS ORDERED: PIP/TAZO PER PHARMACY MC PRN (12:30)
[2020-12-29 12:35] LABS: PLT ESTIMATE ADEQUATE (ADEQUATE)
[2020-12-29 12:36] LABS: ANISOCYTOSIS PRESENT; HYPOCHROMIA PRESENT; OVALOCYTES PRESENT; TEAR DROP CELLS PRESENT
[2020-12-29] MEDS: PIPERACILLIN/TAZOBACTAM 3.375 GM in IV NORMAL SALINE 50ML 50 ML IV ONE ×2 (12:58→14:18)
--- NOTE | 2020-12-29 12:58 | HP ---
ADMIT DATE: 12/29/2020 CHIEF COMPLAINT: Abdominal pain, bruising, and distention. HISTORY OF PRESENT ILLNESS: The patient is a pleasant older male who has history of colon cancer. He states he has seen Dr. Cullen in the past. They were considering some surgery, but I am not clear whether he was a candidate or not. Basically now he fell a couple of weeks ago and he has a bruise on his abdomen, although he did not really hit his abdomen. There is nothing in the hallway to hit according to his . Here in the ER, we noticed that his INR is a little high at 1.6. I suspect he could have some liver insufficiency, perhaps he has got mets to the liver? I discussed the case with ER physician. We are going to admit the patient and consult Hematology/Oncology and get a CAT scan of the abdomen to check the status of his cancer and the morphology of his liver. PAST MEDICAL HISTORY: Colon cancer, CAD, arrhythmias, constipation, COPD, hyperlipidemia, shingles, coronary artery bypass surgery, defibrillator, previous tobacco abuse. ALLERGIES: None. FAMILY HISTORY: Diabetes. SOCIAL HISTORY: He does not drink or take drugs. He quit smoking. He is . MEDICATIONS: Reviewed, please refer to the MRAD. REVIEW OF SYSTEMS: GENERAL: No history of weight change, weakness or fevers. SKIN: No bruising, hair changes or rashes. EYES: No blurred, double or loss of vision. NOSE AND THROAT: No history of nosebleeds, hoarseness or sore throat. HEART: No history of palpitations, chest pain or shortness of breath on exertion. LUNGS: Denies cough, hemoptysis, wheezing or shortness of breath. GASTROINTESTINAL: He complains of abdominal distention and bruising on his abdomen. GENITOURINARY: No history of frequency, urgency, hesitancy or nocturia. NEUROLOGIC: He complains weakness. PSYCHIATRIC: No history of panic, anxiety or depression. ENDOCRINE: No history of heat or cold intolerance, polyuria or polydipsia. EXTREMITIES: Denies muscle weakness, joint pain, pain on walking or stiffness. PHYSICAL EXAMINATION: VITALS: Within normal limits and are stable. GENERAL: No apparent distress. Alert and oriented. HEENT: Normal cephalic atraumatic, external auditory canals are patent EYES: Extraocular muscles are intact, pupils are equally round and reactive to light and accommodation MUSCULOSKELETAL: Well developed, well nourished, good range of motion ENDOCRINE: No thyromegaly was palpated LYMPHATICS: No cervical chain or axillary nodes were noted HEMATOPOIETIC: No bruising NECK: Supple, no JVD, no thyromegaly was noted. LUNGS: Clear to auscultation in all lung tompkins without rhonchi or wheezing. HEART: RRR, S1, S2 present. Peripheral pulses intact, no obvious murmurs were noted. ABDOMEN: He has distended abdomen and there is some bruising on the left upper quadrant. EXTREMITIES: Without any cyanosis, clubbing, or edema. Pedal pulses intact, Homans sign is negative. NEUROLOGIC: Normal speech, normal tone. A & O x3, moves all extremities, no obvious focal deficits. PSYCHIATRIC: Normal affect, normal mood. Stable. SKIN: No ulcerations or rashes, good skin turgor, no jaundice. VASCULAR: Good capillary refill, neurovascular bundle appears to be intact. DIAGNOSTIC DATA: Chest x-ray shows cardiomegaly and some possible pulmonary fluid overload. CT of the abdomen is pending. LABORATORY DATA: His BNP level 7099 and his INR is 1.5. White count 7, hemoglobin 7.2, platelets 180. ASSESSMENT AND PLAN: Coagulopathy with an INR of 1.5 in an elderly male who has colon cancer and has some bruising on his abdomen after a fall, suspect he might possibly have mets to the liver, causing some liver insufficiency, which would contribute to his elevated INR. For now, we are going to consult Hematology/Oncology. I will give him one dose of fresh frozen plasma and 5 mg of vitamin K. Await CT of the abdomen. Regarding the cardiomegaly and vascular congestion, we will consult Cardiology. Home meds, DVT prophylaxis. Full code. Prognosis long-term is extremely guarded. CC TIME: 31 minutes. BIRD RUSSELL DO DR: FREDO/kieran JOB#: [id number] / [id number]
--- NOTE | 2020-12-29 13:00 | EKG ---
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
--- NOTE | 2020-12-29 15:08 | RAD ---
Perfusion only lung scan 12/29/2020 CLINICAL HISTORY: Shortness of breath and cough. TECHNIQUE: After the intravenous administration of 5.5 mCi of technetium in MAA, perfusion images of both lungs were obtained using the gamma camera. FINDINGS: Comparison is made to a portable chest radiograph earlier today. This demonstrates mild car diomegaly. Bullous emphysematous changes are seen throughout both lungs. A left-sided pacemaker is no clifford. Heterogeneous perfusion throughout both lungs is seen. Multiple moderate to large sized areas of dimi nished/absent perfusion is seen throughout both lungs which appear to correspond to areas of bullous emphysematous on the patient's chest radiograph. These findings would constitute a low probability st udy for pulmonary embolism. IMPRESSION: Low probability study. Electronically signed by: Ronen Matthew MD (12/29/2020 3:06 PM) [id number]
--- NOTE | 2020-12-29 15:55 | RAD ---
EXAM: CT Chest, Abdomen, and Pelvis without IV contrast INDICATION: SOA, COUGH, ABD PAIN TECHNIQUE: Multi-detector row CT images were acquired from the thoracic inlet through the ischial tu berosities without the use of IV contrast. Sagittal and coronal images were acquired from the transax ial data. All CT scans performed at this facility utilize dose optimization techniques as appropriate to the exam, including the following: Automated exposure control and adjustment of the mA and/or KV according to patient size (this includes techniques or standardized protocols for targeted exams wher e dose is indication/reason for exam). ORAL CONTRAST: None COMPARISON: Abdomen pelvis CT without IV contrast of 10/01/2020, CT chest of 10/15/2020 FINDINGS: The absence of IV contrast limits evaluation of soft tissue pathology. CHEST: CARDIOVASCULAR: Cardiomegaly with relative hypodensity of the intracardiac blood flow is evident wit h post-CABG surgical changes. Scattered aortic calcifications without aneurysmal dilation. MEDIASTINUM & VERNA: Mediastinal adenopathy is redemonstrated, similar to prior. LUNGS: Severe emphysema with large bulla in the right lung apex is again enhanced. Similar pleural pa renchymal changes in the periphery of the bilateral lung apices are present with no interval developm ent of pulmonary consolidation suspicious for typical pneumonia. PLEURAL SPACE: Slight interval increase in size of the left pleural effusion, still small to moderate . Slight increase in size of a small right pleural effusion since the more recent chest CT study. OSSEOUS & SOFT TISSUE: Similar superior endplate compression fracture at T11 with approximately 20 pe rcent loss of height in the setting of generalized osteopenia. No aggressive osseous lesions noted. ABDOMEN/PELVIS: LIVER: Unremarkable BILIARY SYSTEM: Gallbladder is contracted. There is no intra or extrahepatic biliary dilation. PANCREAS: Unremarkable SPLEEN: Normal size spleen. Scattered splenic calcifications. ADRENALS: Stable 1.7 cm nodule in the right adrenal gland. Normal left adrenal gland. KIDNEYS & URETERS: Multiple right renal cysts, similar to prior. These require no additional imaging follow-up. Otherwise unremarkable kidneys. BLADDER: Unremarkable REPRODUCTIVE ORGANS: Unremarkable GASTROINTESTINAL: The stomach, small bowel, and colon are unremarkable. The appendix is normal. MESENTERY/PERITONEUM/RETROPERITONEUM: There is a new small amount of perihepatic ascites. No free air or fluid collection. VASCULAR: Extensive arterial calcifications and mild ectasia of the infrarenal abdominal aorta to 2. 9 cm. LYMPH NODES: No adenopathy OSSEOUS & SOFT TISSUES: No acute or aggressive appearing bony lesions. Generalized osteopenia IMPRESSION: 1. 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 No findings suspicious for typical bacterial pneumonia. No pneumothorax. 2. Abdomen and pelvis show a small amount of perihepatic ascites that has developed in the interval b ut otherwise no acute findings to explain abdominal pain. This is favored the consequence of volume o verload from heart failure. Discussed with Dr. Browning by telephone at 3:20pm on 12/29/2020 Electronically signed by: Dolores Osei MD (12/29/2020 3:52 PM) [id number]
[2020-12-29] MEDS: PIPERACILLIN/TAZOBACTAM 3.375 GM in IV NORMAL SALINE 50ML 50 ML IV SCH (19:19)
[2020-12-29] MEDS ORDERED: SERT-267 PO (19:31)
[2020-12-29] MEDS ORDERED: POTA10TA6 PO (19:31)
[2020-12-29] MEDS ORDERED: PREG-9 PO (19:31)
[2020-12-29] MEDS ORDERED: IPRA0.2S5 NEB (19:31)
[2020-12-29] MEDS ORDERED: BUDE0.5A NEB (19:31)
[2020-12-29] MEDS ORDERED: ACLI400A3 IH (19:31)
[2020-12-29 19:59] LABS: BILIRUBIN,URINE NEGATIVE (NEG); CLARITY,URINE TURBID; COLOR,URINE YELLOW; NITRITE,URINE NEGATIVE (NEG); PH,URINE 5.5 (<5.0-8.0); PROTEIN,URINE NEGATIVE (NEG-TRACE)
[2020-12-29 20:00] VITALS: BP 114/63
[2020-12-29 20:09] LABS: BACTERIA,URINE 0 /HPF (0-FEW); RBC,URINE 0 /HPF (0-2); WBC,URINE 0 /HPF (0-4)
[2020-12-29 23:00] VITALS: BP 109/64
[2020-12-30] MEDS: PIPERACILLIN/TAZOBACTAM 3.375 GM in IV NORMAL SALINE 50ML 50 ML IV SCH ×3 (00:40→12:01)
[2020-12-30 03:00] VITALS: BP 114/61
[2020-12-30 07:00] VITALS: BP 114/63
[2020-12-30 11:00] VITALS: BP 115/60
--- NOTE | 2020-12-30 11:25 | PDOC ---
[facility] PROGRESS NOTE Date of Service DOS: DATE: 12/30/20 TIME: 11:19 Chief Complaint Chief Complaint Abd pain, fluid overload History of Present Illness History of Present Illness 12/30/2020 Patient seen and examined Discussed CRC prognosis and he wanted a second opinion on the prognosis. Called Dr. Cullen who is willing to complete surgery if patient decides that is what he wants after second consult DWRN Chart reviewed Vitals/I&O Vitals/I&O: Vital Signs Date Time Temp Pulse Resp B/P (MAP) Pulse Ox O2 Delivery O2 Flow Rate FiO2 12/30/20 11:00 97.2 69 14 115/60 (78) 97 Nasal Cannula 4.0 97.2 I & O 12/29/20 12/29/20 12/30/20 15:00 23:00 07:00 Intake Total 50 ml 240 ml Balance 50 ml 240 ml Physical Exam General: Alert, Oriented X3, Cooperative Heart: Regular rate, Normal S1, Normal S2 Lungs: Crackles Abdomen: Other (Distended abdomen) Extremities: Other (Trace edema b/l +1/4) Skin: Other (Brusing on abdomen and on arms) Labs Labs: Laboratory Tests Test 12/29/20 15:11 12/29/20 19:55 Lactic Acid Level 1.3 mmol/L (0.4-2.0) Urine Collection Type Unknown Urine Color Yellow Urine Clarity Turbid Urine pH 5.5 (<5.0-8.0) Urine Specific [place] 1.015 (1.000-1.030) Urine Protein Negative mg/dL (NEG-TRACE) Urine Glucose (UA) Negative mg/dL (NEG) Urine Ketones (Stick) Negative mg/dL (NEG) Urine Blood Negative (NEG) Urine Nitrite Negative (NEG) Urine Bilirubin Negative (NEG) Urine Urobilinogen Dipstick 1.0 mg/dL (0.2 mg/dL) Urine Leukocyte Esterase Negative (NEG) Urine RBC 0 /HPF (0-2) Urine WBC 0 /HPF (0-4) Urine Squamous Epithelial Cells Few /LPF Urine Bacteria 0 /HPF (0-FEW) Review of Systems Review of Systems: Patient has loss of appetite, weakness, and nausea. Assessment and Plan Assessmemt and Plan Problems Medical Problems: (1) Abdominal pain Status: Acute Colon cancer CAD Arrhythmias Constipation COPD hyperlipidemia Shingles Coronary artery bypass surgery Defibrillator, Previous tobacco abuse. Plan Cont IV abx Cont clear liquid diet Consult oncology B/L SCD Cont home meds Monitor cardiac cont trend labs Transfer floors as he is COVID neg Comment Review of Relevant I have reviewed the following items jay (where applicable) has been applied. Medications: Current Medications Medications (Trade) Dose Ordered Sig/Minerva Route PRN Reason Start Time Stop Time Status Last Admin Dose Admin Phytonadione (Vitamin K Ampule) 10 mg 1X ONCE SQ 12/29/20 12:30 12/29/20 12:31 DC 12/29/20 12:57 Piperacillin Sod/ Tazobactam Sod 3.375 gm/Sodium Chloride 50 ml @ 100 mls/hr ONCE ONCE IV 12/29/20 13:00 12/29/20 13:29 DC 12/29/20 14:18 Piperacillin Sod/ Tazobactam Sod 3.375 gm/Sodium Chloride 50 ml @ 100 mls/hr Q6HRS IV 12/29/20 19:00 12/30/20 05:54 Justifications for Admission Other Justification BIRD RUSSELL III DO Dec 30, 2020 11:25
--- NOTE | 2020-12-30 11:57 | NUR ---
SS following for discharge planning. SS reviewed pt chart and discussed with pt RN. Pt is from home with spouse and is currently requiring oxygen at four liters nasal canula. COVID19 negative. Oncology consulted. Pt has colon cancer and possible need for surgery for bowel. Surgery awaiting oncology input. Pulmonology and Cardiology consulted. Pt on IV Zosyn. Pt will need PT/OT to assess needs when medically ready. SS will continue to follow for discharge planning. Addendum: 12/30/20 at 1238 by HIRA TROTTER SS SS notified that pt had [facility], ; fax [phone], and oxygen through [employer], ; fax [phone], at home.
[2020-12-30] MEDS: POTASSIUM CHLORIDE 10 MEQ TABLET.ER. PO SCH (12:00)
[2020-12-30] MEDS: IPRATRPIUM/ALBUTEROL 0.5/2.5MG 3 ML NEBU. NEB SCH ×3 (12:00→22:09)
[2020-12-30] MEDS: ASPIRIN CHEWABLE 81 MG TABLET. PO SCH (12:00)
[2020-12-30] MEDS: PANTOPRAZOLE 40 MG TABLET.DR. PO SCH (12:00)
[2020-12-30] MEDS: SERTRALINE 50 MG TABLET. PO SCH (12:01)
[2020-12-30] MEDS: LISINOPRIL 5 MG TABLET. PO SCH (12:01)
[2020-12-30] MEDS: METOPROLOL SUCC 24HR ER 25 MG TAB.ER.24H. PO SCH (12:01)
[2020-12-30] MEDS: FUROSEMIDE 40 MG TABLET. PO SCH (12:01)
[2020-12-30] MEDS: ATORVASTATIN CALCIUM 10 MG TABLET. PO SCH (12:01)
[2020-12-30 12:43] LABS: PROTHROMBIN TIME PATIENT 17.9 SEC (11.7-14.0)
--- NOTE | 2020-12-30 12:44 | PDOC2 ---
SRAVAN CASTRO ONLINE COMMUNICATIONS MANAGER 12/30/20 1244: CARDIAC CONSULT DATE OF CONSULT Date of Consult DATE: 12/30/20 TIME: 12:35 REASON FOR CONSULT Reason for Consult: CHF REFERRING PHYSICIAN Referring Physician: Dr. Murdock SOURCE Source: Chart review, Patient HISTORY OF PRESENT ILLNESS HISTORY OF PRESENT ILLNESS This is a 75 yo male who presented secondary to abdominal pain and bruising to the anterior abdominal wall. Reports recent fall, but does not recall hitting his stomach. Reports chronic SOA, but has been more short of breath recently. CXR with mild fluid overload, which prompted this consult. PAST MEDICAL HISTORY Past Medical History Cardiovascular: CAD, CHF, HTN, Hyperlipidemia, Other (ICM) Pulmonary: COPD [employer]CTOR [employer] NATUROPATHIC MEDICINE: subarachnoid hemorrhage GI: Diverticulosis, GERD Heme/Onc: Anemia NOS Hepatobiliary: No pertinent hx Psych: No pertinent hx Musculoskeletal: low back pain (sciatica), Osteoarthritis Rheumatologic: No pertinent hx Infectious disease: Herpes zoster (shingles) ENT: Allergic Rhinitis Renal/: Benign prostatic enlarg., Prostate Ca. Dermatology: No pertinent hx PAST SURGICAL HISTORY Past Surgical History Pacemaker (CALL CENTER COORDINATOR-D (st Tim)), CABG (1996), Other (PCI/stent to LCx 12/2015), prior cardiac ablation(08/16/2018) FAMILY HISTORY Family History: Coronary Artery Disease SOCIAL HISTORY Social History Smoke: Quit ALCOHOL: none Drugs: None Lives: with Family CURRENT MEDICATIONS CURRENT MEDICATIONS Current Medications Medications (Trade) Dose Ordered Sig/[place] Route PRN Reason Start Time Stop Time Status Last Admin Dose Admin Piperacillin Sod/ Tazobactam Sod 3.375 gm/Sodium Chloride 50 ml @ 100 mls/hr ONCE ONCE IV 12/29/20 13:00 12/29/20 13:29 DC 12/29/20 14:18 Piperacillin Sod/ Tazobactam Sod 3.375 gm/Sodium Chloride 50 ml @ 100 mls/hr Q6HRS IV 12/29/20 19:00 12/30/20 12:01 Aspirin (Aspirin Chewable) 81 mg DAILY PO 12/30/20 12:30 12/30/20 12:00 Furosemide (Lasix) 40 mg DAILY PO 12/30/20 12:30 12/30/20 12:01 Lisinopril (Prinivil) 5 mg DAILY PO 12/30/20 12:30 12/30/20 12:01 Metoprolol Succinate (Toprol Xl) 25 mg DAILY PO 12/30/20 12:30 12/30/20 12:01 Pantoprazole Sodium (Protonix) 40 mg DAILYAC PO 12/30/20 12:30 12/30/20 12:00 Sertraline HCl (Zoloft) 50 mg DAILY PO 12/30/20 12:30 12/30/20 12:01 Atorvastatin Calcium (Lipitor) 10 mg DAILY PO 12/30/20 12:30 12/30/20 12:01 Potassium Chloride (Klor-Con) 10 meq DAILYWBKFT PO 12/30/20 12:30 12/30/20 12:00 ALLERGIES ALLERGIES: Coded Allergies: No Known Drug Allergies (Unverified , 10/15/20) ROS Review of System 14 point ROS conducted with pertinent positives noted above in hPi PHYSICAL EXAM PHYSICAL EXAM General: Alert, Oriented X3, Cooperative, No acute distress HEENT: Atraumatic, Mucous membr. moist/pink Lungs: bibasilar crackles Heart: Regular rate (V pacing with underlying AFIB), Normal S1, Normal S2 Extremities: No cyanosis, Other (1+ bilateral LE edema) Skin: warm and dry Neuro: Normal speech, Sensation intact Psych/Mental Status: Mental status NL, Mood NL MUSCULOSKELETAL: Osteoarthritic changes both hands VITALS/I&O VITALS/I&O: Vital Signs Date Time Temp Pulse Resp B/P (MAP) Pulse Ox O2 Delivery O2 Flow Rate FiO2 12/30/20 12:01 69 115/60 12/30/20 11:00 97.2 14 97 Nasal Cannula 4.0 97.2 I & O 12/29/20 12/29/20 12/30/20 15:00 23:00 07:00 Intake Total 50 ml 240 ml Balance 50 ml 240 ml LABS Lab: Laboratory Tests Test 12/29/20 15:11 12/29/20 19:55 Lactic Acid Level 1.3 mmol/L (0.4-2.0) Urine Collection Type Unknown Urine Color Yellow Urine Clarity Turbid Urine pH 5.5 (<5.0-8.0) Urine Specific [place] 1.015 (1.000-1.030) Urine Protein Negative mg/dL (NEG-TRACE) Urine Glucose (UA) Negative mg/dL (NEG) Urine Ketones (Stick) Negative mg/dL (NEG) Urine Blood Negative (NEG) Urine Nitrite Negative (NEG) Urine Bilirubin Negative (NEG) Urine Urobilinogen Dipstick 1.0 mg/dL (0.2 mg/dL) Urine Leukocyte Esterase Negative (NEG) Urine RBC 0 /HPF (0-2) Urine WBC 0 /HPF (0-4) Urine Squamous Epithelial Cells Few /LPF Urine Bacteria 0 /HPF (0-FEW) ECHOCARDIOGRAM ECHOCARDIOGRAM <Conclusion> The systolic function is mildly impaired. The Ejection Fraction is 40-45%. The basal to mid inferior wall is akinetic. The septal motion is suggestive of paced rhythm. Otherwise, mild global hypokinesis. There is a pacemaker lead in the right ventricle. The right ventricle is mildly to moderately dilated. Doppler and Color Flow revealed moderate tricuspid regurgitation with an estimated PAP of 60 MMhg. There is moderate pulmonary hypertension. DATE: 04/15/19 1452 <Conclusion> The systolic function is moderately impaired. The Ejection Fraction is 35% The distal 1/3 of the LV is severely hypokinetic. 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 The right ventricle is mildly to moderately dilated. RV Systolic function is mildly reduced. There is a pacemaker lead in the right ventricle. Doppler and Color Flow revealed trace to mild tricuspid regurgitation with an estimated PAP of 66 mmHg. DATE: 06/16/20 1345 <Conclusion> The Left Ventricle is mild to moderately dilated. The systolic function is moderately to severely impaired. The ejection fraction is 30-35% There is global hypokinesis of the left ventricle. There is mild concentric left ventricular hypertrophy. Doppler and Color Flow revealed no significant aortic regurgitation. There is no significant aortic valvular stenosis. Doppler and Color Flow revealed at least moderate eccentric mitral regurgitation. Doppler and Color Flow revealed mild tricuspid valve regurgitation noted. Est imated PAP >50 mmHg. DATE: 10/27/20 [id number] HEART CATH HEART CATH Findings. Hemodynamics. Aortic root pressure 144/86. Coronaries. Left main. The left main had a 10% lesion. Left anterior descending. The LAD had a proximal 95% lesion and a mid occlusion. Left circumflex. The left circumflex for circumflex had a proximal 60% lesion, a mid 75-80% lesion and a distal occlusion. Obtuse marginal 1 branch had a 95% lesion. Right coronary artery. The right coronary was a moderately small vessel with a proximal to mid lesion of greater than 90%. Grafts. Saphenous vein graft to the LAD was widely patent. Saphenous vein graft to the right coronary artery was widely patent. The PAN was not used as a graft. Interventions. An obtuse marginal lesion of 95% was decreased to 0%. Left circumflex lesions of 75-80% as well as a more proximal lesion of 60-70% were decreased to 0% with drug eluting stents as noted above. <Conclusion> 3 vessel coronary artery disease. Patent saphenous vein graft to the LAD. Patent saphenous vein graft to the right coronary artery. 3 significant lesions of the left circumflex system decreased to 0% with 3 drug eluting stents. DATE: 12/17/15 1354 ASSESSMENT/PLAN ASSESSMENT/PLAN 1 Abdominal pain, bruising; CT with ascites 2. Mild acute on chronic systolic CHF 3. ICM: Echo 10/24 with LVEF 30-35%. S/p CALL CENTER COORDINATOR-D ([employer] Tim). Device check 10/24 with normal function. stable lead impedances, adequate batter life at 20%. AFIB burden > 99%. 4. CAD: past CABG and PCI. Most recent PCI/stents 12/2015 as noted above. Clinically stable. 5. Anemia, coagulopathy; INR 1.5 6. Colon CA with obstructing colonic mass; plans for colon resection 7. Persistent AFIB; v-paced with underlying AFIB 8. Hypertension; controlled 9. Hyperlipidemia; statin 10. GRUPO on CKD 11 COPD with home O2 use Recommendations Lasix therapy; monitor renal function Continue secondary prevention measures. HF optimization with Troprol, ACEi, and Lasix Okay to hold ASA for now with anemia, coagulopathy. Not on OAC due to past fall, hemorrhage, and anemia. Supportive care Follow general surgery recommendations ERIC OROZCO MD 12/30/20 4255: CARDIAC CONSULT ASSESSMENT/PLAN ASSESSMENT/PLAN Patient seen and examined I agree with our nurse practitioners assessment and plan as above. Abdominal pain, bruising; CT with ascites. Colonic mass. Being evaluated by general surgery. ICM: Echo 10/24 with LVEF 30-35%. S/p CALL CENTER COORDINATOR-D ([employer] Tim). Device check 10/24 with normal function. stable lead impedances, adequate batter life at 20%. AFIB burden > 99%. Not on anticoagulation. Will hold aspirin pending surgical evaluation CAD: past CABG and PCI. Most recent PCI/stents 12/2015 as noted above. Clinically stable. Holding aspirin. Anemia, coagulopathy; INR 1.5 Persistent AFIB; v-paced with underlying AFIB Hypertension; controlled Hyperlipidemia; statin GRUPO on CKD COPD with home O2 use SRAVAN CASTRO APRN Dec 30, 2020 12:44 ERIC OROZCO MD Dec 30, 2020 17:49
[2020-12-30] MEDS ORDERED: IPRATROPIUM BROMIDE 0.5 MG/2.5 ML NEBU. NEB SCH (13:00)
[2020-12-30 15:00] VITALS: BP 106/61
--- NOTE | 2020-12-30 16:23 | PDOC ---
PULMONARY PROGRESS NOTES DATE: 12/30/20 TIME: 16:22 Vitals Vital Signs Date Time Temp Pulse Resp B/P (MAP) Pulse Ox O2 Delivery O2 Flow Rate FiO2 12/30/20 15:00 97.1 73 16 106/61 (76) 97 Nasal Cannula 4.0 97.1 General: Alert, No acute distress HEENT: Other Lungs: Crackles Cardiovascular: S1, S2 Abdomen: Soft, Non-tender Extremities: Other Labs Laboratory Tests Test 12/29/20 11:05 12/29/20 11:19 12/29/20 15:11 12/29/20 19:55 White Blood Count 7.1 x10^3/uL (4.0-11.0) Red Blood Count 3.24 x10^6/uL (4.30-5.70) Hemoglobin 7.2 g/dL (13.0-17.5) Hematocrit 24.6 % (39.0-53.0) Mean Corpuscular Volume 76 fL (79-100) Mean Corpuscular Hemoglobin 22 pg (25-35) Mean Corpuscular Hemoglobin Concent 29 g/dL (31-37) Red Cell Distribution Width 20.5 % (11.5-14.5) Platelet Count 180 x10^3/uL (140-400) Neutrophils (%) (Auto) 75 % (31-73) Lymphocytes (%) (Auto) 10 % (24-48) Monocytes (%) (Auto) 10 % (0-9) Eosinophils (%) (Auto) 3 % (0-3) Basophils (%) (Auto) 2 % (0-3) Neutrophils # (Auto) 5.3 x10^3/uL (1.8-7.7) Lymphocytes # (Auto) 0.7 x10^3/uL (1.0-4.8) Monocytes # (Auto) 0.7 x10^3/uL (0.0-1.1) Eosinophils # (Auto) 0.2 x10^3/uL (0.0-0.7) Basophils # (Auto) 0.1 x10^3/uL (0.0-0.2) Platelet Estimate Adequate (ADEQUATE) Hypochromasia Present Anisocytosis Present Tear Drop Cells Present Ovalocytes Present Prothrombin Time 17.6 SEC (11.7-14.0) Prothromb Time International Ratio 1.5 (0.8-1.1) Activated Partial Thromboplast Time 33 SEC (24-38) Sodium Level 143 mmol/L (136-145) Potassium Level 4.5 mmol/L (3.5-5.1) Chloride Level 107 mmol/L (98-107) Carbon Dioxide Level 26 mmol/L (21-32) Anion Gap 10 (6-14) Blood Urea Nitrogen 26 mg/dL (8-26) Creatinine 1.6 mg/dL (0.7-1.3) Estimated GFR (Cockcroft-Gault) 42.1 Glucose Level 106 mg/dL (70-99) Lactic Acid Level 3.8 mmol/L (0.4-2.0) 1.3 mmol/L (0.4-2.0) Calcium Level 8.0 mg/dL (8.5-10.1) Total Bilirubin 1.6 mg/dL (0.2-1.0) Direct Bilirubin 0.6 mg/dL (0.0-0.2) Aspartate Amino Transf (AST/SGOT) 27 U/L (15-37) Alanine Aminotransferase (ALT/SGPT) 28 U/L (16-63) Alkaline Phosphatase 152 U/L (46-116) Troponin I Quantitative 0.072 ng/mL (0.000-0.055) GX-Pmu-K-Type Natriuretic Peptide 7099 pg/mL (0-449) Total Protein 6.5 g/dL (6.4-8.2) Albumin 3.1 g/dL (3.4-5.0) Lipase 169 U/L (73-393) Coronavirus (PCR) Not detected (Not Detected) Urine Collection Type Unknown Urine Color Yellow Urine Clarity Turbid Urine pH 5.5 (<5.0-8.0) Urine Specific [place] 1.015 (1.000-1.030) Urine Protein Negative mg/dL (NEG-TRACE) Urine Glucose (UA) Negative mg/dL (NEG) Urine Ketones (Stick) Negative mg/dL (NEG) Urine Blood Negative (NEG) Urine Nitrite Negative (NEG) Urine Bilirubin Negative (NEG) Urine Urobilinogen Dipstick 1.0 mg/dL (0.2 mg/dL) Urine Leukocyte Esterase Negative (NEG) Urine RBC 0 /HPF (0-2) Urine WBC 0 /HPF (0-4) Urine Squamous Epithelial Cells Few /LPF Urine Bacteria 0 /HPF (0-FEW) Test 12/30/20 12:23 Prothrombin Time 17.9 SEC (11.7-14.0) Prothromb Time International Ratio 1.5 (0.8-1.1) Laboratory Tests Test 12/29/20 19:55 12/30/20 12:23 Urine Collection Type Unknown Urine Color Yellow Urine Clarity Turbid Urine pH 5.5 (<5.0-8.0) Urine Specific [place] 1.015 (1.000-1.030) Urine Protein Negative mg/dL (NEG-TRACE) Urine Glucose (UA) Negative mg/dL (NEG) Urine Ketones (Stick) Negative mg/dL (NEG) Urine Blood Negative (NEG) Urine Nitrite Negative (NEG) Urine Bilirubin Negative (NEG) Urine Urobilinogen Dipstick 1.0 mg/dL (0.2 mg/dL) Urine Leukocyte Esterase Negative (NEG) Urine RBC 0 /HPF (0-2) Urine WBC 0 /HPF (0-4) Urine Squamous Epithelial Cells Few /LPF Urine Bacteria 0 /HPF (0-FEW) Prothrombin Time 17.9 SEC (11.7-14.0) Prothromb Time International Ratio 1.5 (0.8-1.1) Medications Active Scripts Medications Dose Route/Sig Max Daily Dose Days Date Category Sertraline Hcl 50 Mg Tablet 50 Mg PO DAILY 12/29/20 Reported Budesonide 0.5 Mg/2 Ml Ampul.neb 1 Vial NEB BID 12/29/20 Reported Tudorza Pressair (Aclidinium [place]) 400 Mcg Aer.pow.ba 1 Puff IH BID 12/29/20 Reported Ipratropium [place] 0.2 Mg/1 Ml Solution 1 Vial NEB QID 12/29/20 Reported Klor-Con 10 (Potassium Chloride) 10 Meq Tablet.er 1 Tab PO DAILY 30 12/29/20 Reported Lyrica (Pregabalin) 75 Mg Capsule 1 Cap PO BID 12/29/20 Reported Lisinopril 5 Mg Tablet 5 Mg PO DAILY 10/17/20 Rx Senna Plus Tablet (Sennosides/Docusate Sodium) 1 Each Tablet 2 Tab PO QHS 14 10/01/20 Rx Ipratropium [place] 15 Ml [place] 2 Sprays NS BID 07/08/20 Reported Metoprolol Succinate ( Xl ) (Metoprolol Succinate) 25 Mg Tab.er.24h 1 Tab PO DAILY 30 07/08/20 Reported Pantoprazole Sodium 40 Mg Tablet.dr 1 Tab PO DAILY 30 07/08/20 Reported Gabapentin (Gabapentin) 300 Mg Capsule 300 Mg PO DAILYWSUP 06/30/19 Reported Aspirin 81 Mg Tab.chew 81 Mg PO DAILY 06/30/19 Reported Furosemide 40 Mg Tablet 40 Mg PO DAILY MDD 1 10/19/18 Rx Lovastatin 40 Mg Tablet 1 Tab PO DAILY 12/14/14 Reported Impression . Full full consult dictated Chronic respiratory failure Severe COPD Coronary artery disease Colon cancer RADAMES MORALES MD Dec 30, 2020 16:23
[2020-12-30] MEDS ORDERED: FUROSEMIDE 40 MG/4 ML VIAL. IVP ONE (17:00)
[2020-12-30] MEDS: GABAPENTIN 300 MG CAPSULE. PO SCH (17:26)
--- NOTE | 2020-12-30 18:19 | PDOC2 ---
CONSULT Date of Consult Date of Consult DATE: 12/30/20 TIME: 18:02 Reason for Consult Reason for Consult: colon cancer Referring Physician Referring Physician: Dr. Murdock Identification/Chief Complaint Chief Complaint constipation Source Source: Chart review, Patient History of Present Illness Reason for Visit: 75 yo M with c/o increasing issues of constipation. He requires extensive laxatives to continue to have stools. He previously underwent colonoscopy concerning for hepatic flexure mass. Biopsy c/w tubulovillous adenoma, however concern remains for malignancy. He has had extensive w/u for anticipation of consideration surgery. He has been seen multiple times regarding this. He is seen in his hospital and appears comfortable. Past Medical History Cardiovascular: CAD, CHF, HTN, Hyperlipidemia, Other Pulmonary: COPD CENTRAL NERVOUS SYSTEM: Other GI: Diverticulosis, GERD Heme/Onc: Anemia NOS Hepatobiliary: No pertinent hx Psych: No pertinent hx Musculoskeletal: low back pain, Osteoarthritis Rheumatologic: No pertinent hx Infectious disease: Herpes zoster Renal/: Benign prostatic enlarg., Prostate Ca. Past Surgical History Past Surgical History: Pacemaker, CABG, Other Family History Family History: Coronary Artery Disease Social History Quit ALCOHOL: none Drugs: None Lives: with Family Current Problem List Problem List Problems Medical Problems: (1) Abdominal pain Status: Acute Current Medications Current Medications Current Medications Phytonadione (Vitamin K Ampule) 10 mg 1X ONCE SQ Last administered on 12/29/20at 12:57; Start 12/29/20 at 12:30; Stop 12/29/20 at 12:31; Status DC Piperacillin Sod/ Tazobactam Sod (Zosyn Per Pharmacy) 1 each PRN DAILY PRN MC SEE COMMENTS; Start 12/29/20 at 12:30; Stop 12/30/20 at 13:32; Status DC Piperacillin Sod/ Tazobactam Sod 3.375 gm/Sodium Chloride 50 ml @ 100 mls/hr ONCE ONCE IV Last administered on 12/29/20at 14:18; Start 12/29/20 at 13:00; Stop 12/29/20 at 13:29; Status DC Piperacillin Sod/ Tazobactam Sod 3.375 gm/Sodium Chloride 50 ml @ 100 mls/hr Q6HRS IV Last administered on 12/30/20at 12:01; Start 12/29/20 at 19:00; Stop 12/30/20 at 13:32; Status DC Aspirin (Aspirin Chewable) 81 mg DAILY PO Last administered on 12/30/20at 12:00; Start 12/30/20 at 12:30 Furosemide (Lasix) 40 mg DAILY PO Last administered on 12/30/20at 12:01; Start 12/30/20 at 12:30 Gabapentin (Neurontin) 300 mg DAILYWSUP PO Last administered on 12/30/20at 17:26; Start 12/30/20 at 17:00 Ipratropium [place] (Atrovent) 1 mg QID NEB ; Start 12/30/20 at 13:00; Stop 12/30/20 at 11:54; Status DC Ipratropium [place] (Atrovent Nasal) 2 spray BID NS ; Start 12/30/20 at 21:00 Lisinopril (Prinivil) 5 mg DAILY PO Last administered on 12/30/20at 12:01; Start 12/30/20 at 12:30 Metoprolol Succinate (Toprol Xl) 25 mg DAILY PO Last administered on 12/30/20at 12:01; Start 12/30/20 at 12:30 Pantoprazole Sodium (Protonix) 40 mg DAILYAC PO Last administered on 12/30/20at 12:00; Start 12/30/20 at 12:30 Pregabalin (Lyrica) 75 mg BID PO ; Start 12/30/20 at 21:00 Senna/Docusate Sodium (Senna Plus) 2 tab QHS PO ; Start 12/30/20 at 21:00 Sertraline HCl (Zoloft) 50 mg DAILY PO Last administered on 12/30/20at 12:01; Start 12/30/20 at 12:30 Albuterol/ Ipratropium (Duoneb) 3 ml RTQID NEB ; Start 12/30/20 at 12:00 Atorvastatin Calcium (Lipitor) 10 mg DAILY PO Last administered on 12/30/20at 12:01; Start 12/30/20 at 12:30 Potassium Chloride (Klor-Con) 10 meq DAILYWBKFT PO Last administered on 12/30/20at 12:00; Start 12/30/20 at 12:30 Fentanyl Citrate (Fentanyl 2ml Vial) 25 mcg PRN Q5MIN PRN IVP MILD PAIN 1-3; Start 12/31/20 at 06:00; Stop 01/01/21 at 05:59 Fentanyl Citrate (Fentanyl 2ml Vial) 50 mcg PRN Q5MIN PRN IVP MODERATE PAIN 4- 6; Start 12/31/20 at 06:00; Stop 01/01/21 at 05:59 Morphine Sulfate (Morphine Sulfate) 1 mg PRN Q10MIN PRN IVP SEVERE PAIN 7-10; Start 12/31/20 at 06:00; Stop 01/01/21 at 05:59 Ringer's Solution 1,000 ml @ 30 mls/hr Q24H IV ; Start 12/31/20 at 06:00; Stop 12/31/20 at 17:59 Hydromorphone HCl (Dilaudid) 0.5 mg PRN Q10MIN PRN IVP SEVERE PAIN 7-10, 2nd CHOICE; Start 12/31/20 at 06:00; Stop 01/01/21 at 05:59 Prochlorperazine Edisylate (Compazine) 5 mg PACU PRN PRN IVP NAUSEA, MRX1; Start 12/31/20 at 06:00; Stop 01/01/21 at 05:59 Fentanyl Citrate (Fentanyl 2ml Vial) 25 mcg PRN Q5MIN PRN IVP MILD PAIN 1-3; Start 12/31/20 at 06:00; Stop 01/01/21 at 05:59; Status UNV Fentanyl Citrate (Fentanyl 2ml Vial) 50 mcg PRN Q5MIN PRN IVP MODERATE PAIN 4- 6; Start 12/31/20 at 06:00; Stop 01/01/21 at 05:59; Status UNV Morphine Sulfate (Morphine Sulfate) 1 mg PRN Q10MIN PRN IVP SEVERE PAIN 7-10; Start 12/31/20 at 06:00; Stop 01/01/21 at 05:59; Status UNV Ringer's Solution 1,000 ml @ 30 mls/hr Q24H IV ; Start 12/31/20 at 06:00; Stop 12/31/20 at 17:59; Status UNV Hydromorphone HCl (Dilaudid) 0.5 mg PRN Q10MIN PRN IVP SEVERE PAIN 7-10, 2nd CH OICE; Start 12/31/20 at 06:00; Stop 01/01/21 at 05:59; Status UNV Prochlorperazine Edisylate (Compazine) 5 mg PACU PRN PRN IVP NAUSEA, MRX1; Start 12/31/20 at 06:00; Stop 01/01/21 at 05:59; Status UNV Furosemide (Lasix) 40 mg 1X ONCE IVP Last administered on 12/30/20at 17:27; Start 12/30/20 at 17:00; Stop 12/30/20 at 17:01; Status DC Active Scripts Active Lisinopril 5 Mg Tablet 5 Mg PO DAILY Senna Plus Tablet (Sennosides/Docusate Sodium) 1 Each Tablet 2 Tab PO QHS 14 D ays Furosemide 40 Mg Tablet 40 Mg PO DAILY MDD 1 Reported Sertraline Hcl 50 Mg Tablet 50 Mg PO DAILY Budesonide 0.5 Mg/2 Ml Ampul.neb 1 Vial NEB BID Tudorza Pressair (Aclidinium [place]) 400 Mcg Aer.pow.ba 1 Puff IH BID Ipratropium [place] 0.2 Mg/1 Ml Solution 1 Vial NEB QID Klor-Con 10 (Potassium Chloride) 10 Meq Tablet.er 1 Tab PO DAILY 30 Days Lyrica (Pregabalin) 75 Mg Capsule 1 Cap PO BID Ipratropium [place] 15 Ml [place] 2 Sprays NS BID Metoprolol Succinate ( Xl ) (Metoprolol Succinate) 25 Mg Tab.er.24h 1 Tab PO DAILY 30 Days Pantoprazole Sodium 40 Mg Tablet.dr 1 Tab PO DAILY 30 Days Gabapentin (Gabapentin) 300 Mg Capsule 300 Mg PO DAILYWSUP Aspirin 81 Mg Tab.chew 81 Mg PO DAILY Lovastatin 40 Mg Tablet 1 Tab PO DAILY Allergies Allergies: Coded Allergies: No Known Drug Allergies (Unverified , 10/15/20) ROS Respiratory: YES: SOB with excertion Gastrointestinal: Yes Constipation Physical Exam General: Alert, Oriented X3, Cooperative, No acute distress HEENT: Atraumatic Lungs: Normal air movement Abdomen: Soft, Other (mild distention, some ecchymosis) Extremities: No clubbing, No cyanosis Neuro: Normal speech, Sensation intact Psych/Mental Status: Mental status NL, Mood NL Vitals VITALS Vital Signs Date Time Temp Pulse Resp B/P (MAP) Pulse Ox O2 Delivery O2 Flow Rate FiO2 12/30/20 15:00 97.1 73 16 106/61 (76) 97 Nasal Cannula 4.0 97.1 Labs Labs Laboratory Tests Test 12/29/20 11:05 12/29/20 11:19 12/29/20 15:11 12/29/20 19:55 White Blood Count 7.1 x10^3/uL (4.0-11.0) Red Blood Count 3.24 x10^6/uL (4.30-5.70) Hemoglobin 7.2 g/dL (13.0-17.5) Hematocrit 24.6 % (39.0-53.0) Mean Corpuscular Volume 76 fL (79-100) Mean Corpuscular Hemoglobin 22 pg (25-35) Mean Corpuscular Hemoglobin Concent 29 g/dL (31-37) Red Cell Distribution Width 20.5 % (11.5-14.5) Platelet Count 180 x10^3/uL (140-400) Neutrophils (%) (Auto) 75 % (31-73) Lymphocytes (%) (Auto) 10 % (24-48) Monocytes (%) (Auto) 10 % (0-9) Eosinophils (%) (Auto) 3 % (0-3) Basophils (%) (Auto) 2 % (0-3) Neutrophils # (Auto) 5.3 x10^3/uL (1.8-7.7) Lymphocytes # (Auto) 0.7 x10^3/uL (1.0-4.8) Monocytes # (Auto) 0.7 x10^3/uL (0.0-1.1) Eosinophils # (Auto) 0.2 x10^3/uL (0.0-0.7) Basophils # (Auto) 0.1 x10^3/uL (0.0-0.2) Platelet Estimate Adequate (ADEQUATE) Hypochromasia Present Anisocytosis Present Tear Drop Cells Present Ovalocytes Present Prothrombin Time 17.6 SEC (11.7-14.0) Prothromb Time International Ratio 1.5 (0.8-1.1) Activated Partial Thromboplast Time 33 SEC (24-38) Sodium Level 143 mmol/L (136-145) Potassium Level 4.5 mmol/L (3.5-5.1) Chloride Level 107 mmol/L (98-107) Carbon Dioxide Level 26 mmol/L (21-32) Anion Gap 10 (6-14) Blood Urea Nitrogen 26 mg/dL (8-26) Creatinine 1.6 mg/dL (0.7-1.3) Estimated GFR (Cockcroft-Gault) 42.1 Glucose Level 106 mg/dL (70-99) Lactic Acid Level 3.8 mmol/L (0.4-2.0) 1.3 mmol/L (0.4-2.0) Calcium Level 8.0 mg/dL (8.5-10.1) Total Bilirubin 1.6 mg/dL (0.2-1.0) Direct Bilirubin 0.6 mg/dL (0.0-0.2) Aspartate Amino Transf (AST/SGOT) 27 U/L (15-37) Alanine Aminotransferase (ALT/SGPT) 28 U/L (16-63) Alkaline Phosphatase 152 U/L (46-116) Troponin I Quantitative 0.072 ng/mL (0.000-0.055) II-Sdl-V-Type Natriuretic Peptide 7099 pg/mL (0-449) Total Protein 6.5 g/dL (6.4-8.2) Albumin 3.1 g/dL (3.4-5.0) Lipase 169 U/L (73-393) Coronavirus (PCR) Not detected (Not Detected) Urine Collection Type Unknown Urine Color Yellow Urine Clarity Turbid Urine pH 5.5 (<5.0-8.0) Urine Specific [place] 1.015 (1.000-1.030) Urine Protein Negative mg/dL (NEG-TRACE) Urine Glucose (UA) Negative mg/dL (NEG) Urine Ketones (Stick) Negative mg/dL (NEG) Urine Blood Negative (NEG) Urine Nitrite Negative (NEG) Urine Bilirubin Negative (NEG) Urine Urobilinogen Dipstick 1.0 mg/dL (0.2 mg/dL) Urine Leukocyte Esterase Negative (NEG) Urine RBC 0 /HPF (0-2) Urine WBC 0 /HPF (0-4) Urine Squamous Epithelial Cells Few /LPF Urine Bacteria 0 /HPF (0-FEW) Test 12/30/20 12:23 Prothrombin Time 17.9 SEC (11.7-14.0) Prothromb Time International Ratio 1.5 (0.8-1.1) Laboratory Tests Test 12/29/20 19:55 12/30/20 12:23 Urine Collection Type Unknown Urine Color Yellow Urine Clarity Turbid Urine pH 5.5 (<5.0-8.0) Urine Specific [place] 1.015 (1.000-1.030) Urine Protein Negative mg/dL (NEG-TRACE) Urine Glucose (UA) Negative mg/dL (NEG) Urine Ketones (Stick) Negative mg/dL (NEG) Urine Blood Negative (NEG) Urine Nitrite Negative (NEG) Urine Bilirubin Negative (NEG) Urine Urobilinogen Dipstick 1.0 mg/dL (0.2 mg/dL) Urine Leukocyte Esterase Negative (NEG) Urine RBC 0 /HPF (0-2) Urine WBC 0 /HPF (0-4) Urine Squamous Epithelial Cells Few /LPF Urine Bacteria 0 /HPF (0-FEW) Prothrombin Time 17.9 SEC (11.7-14.0) Prothromb Time International Ratio 1.5 (0.8-1.1) Images Images CT without evidence of metastatic disease. Ascites, possibly secondary to CHF Assessment/Plan Assessment/Plan Colon mass, favor cancer pt represents a poor surgical candidate. He has significant pulm disease and cardiac disease. He is at high risk for surgical complications, however, given his increasing constipation, would be concerned for pending obstruction. He has elected to proceed with surgical intervention. R/R/B/A d/w pt. Risks, including, but not limited to: bleeding, infection, damage to surrounding structures, risk of anesthesia. He appears to understand, his questions are answered and he elects to proceed. Thanks for consult! MADDIE REYES MD Dec 30, 2020 18:18
[2020-12-30 19:00] VITALS: BP 97/58
[2020-12-30] MEDS: IPRATROPIUM BROMIDE 0.06% NASAL SPRAY 15ML BOTTLE. NS SCH (21:48)
[2020-12-30] MEDS: SENNOSIDES/DOCUSATE 8.6/50MG TABLET. PO SCH (21:48)
[2020-12-30] MEDS: PREGABALIN 75 MG CAPSULE PO SCH (21:49)
[2020-12-30 23:03] VITALS: BP 108/58
[2020-12-31] VITALS (12 sets, daily range): BP systolic 81–112; BP diastolic 45–68
--- NOTE | 2020-12-31 02:27 | CONS ---
DATE OF CONSULTATION: 12/30/2020 ATTENDING PHYSICIAN: Leslee Murdock DO CONSULTING PHYSICIAN: Radames Morales MD REASON FOR CONSULTATION: The patient is seen in pulmonary consultation at the request of Dr. Murdock for increasing shortness of air, abnormal CT revealing emphysema, and left lower lobe effusion. HISTORY OF PRESENT ILLNESS: The patient is a 75-year-old who presented with abdominal pain in the epigastric region ____ couple of times. He is actually known to have colon mass. He has been seen in the office in the past for evaluation for preop evaluation. At that time, it was recommended the patient undergo surgery despite his severe COPD and chronic respiratory failure secondary to the fact that the patient is almost obstructive. The case has been discussed at several times with Dr. Cullen. I believe the patient is now scheduled to undergo surgery. He presented because of falls and abdominal discomfort. He denies fever or chills. No hemoptysis. PAST MEDICAL HISTORY: Chronic respiratory failure, severe COPD, previous tobacco dependent, coronary artery disease, colon cancer. He also has a history of CHF, hypertension, hyperlipidemia. He has had previous subarachnoid hemorrhage, osteoarthritis, herpes zoster, he has had previous prostate cancer. PAST SURGICAL HISTORY: He has had pacemaker implantation and CABG in 1995 and 1996. He has had PCI and stent in 2016, and cardiac ablation in 2018. FAMILY HISTORY: Coronary artery disease. SOCIAL HISTORY: He quit tobacco. Currently lives with his . REVIEW OF SYSTEMS: As indicated above, otherwise, a 10-point system was reviewed and negative. CURRENT MEDICATIONS: List was reviewed. PHYSICAL EXAMINATION: VITAL SIGNS: Stable. O2 saturation was greater than 92%. LUNGS: He has poor airway flow with no wheezes. CARDIOVASCULAR: Regular rate and rhythm with S1, S2. No S3. ABDOMEN: Soft, nontender, nondistended. EXTREMITIES: No clubbing, cyanosis or edema. NEUROLOGIC: The patient was awake, alert, following commands. A detailed neuro exam was not performed. LABORATORY DATA: SARS-CoV-2 was negative. White count was normal. Hemoglobin and hematocrit chronically low. Electrolytes show BUN 26 and creatinine is 1.6. IMPRESSION: 1. Chronic respiratory failure, multifactorial secondary to severe chronic obstructive pulmonary disease, coronary artery disease, previous coronary artery bypass grafting and deconditioning. 2. Cardiomyopathy, status post coronary artery bypass grafting. 3. Chronic atrial fibrillation. 4. Recent diagnosis of colon cancer. According to Dr. Cullen, the patient is close to obstructing his colon and requires surgical intervention. PLAN: 1. We will continue current support with oxygen supplementation. 2. Nebulized treatments. 3. Continue home meds. 4. Proceed with surgical intervention per Dr. Cullen. I had multiple discussions with the patient. The patient is aware that he may do poorly, requiring prolonged mechanical support and tracheotomy. The patient informed me that if he does undergo surgical intervention and he still requires mechanical support after 3 weeks out, that if several doctors on the case feel that his chances of meaningful recovery are poor, he wishes to be taken off mechanical support and allow natural . I do appreciate the privilege in sharing in the patient's care. RADAMES MORALES MD DR: CRISTÓBAL/kieran JOB#: [id number] / [id number]
[2020-12-31] MEDS ORDERED: HYDROmorphone 2 MG/ML VIAL IVP PRN ×2 (06:00)
[2020-12-31] MEDS ORDERED: MORPHINE SULFATE 2 MG/ML VIAL. IVP PRN ×2 (06:00)
[2020-12-31] MEDS ORDERED: PROCHLORPERAZINE 10 MG/2 ML VIAL. IVP PRN ×2 (06:00)
[2020-12-31] MEDS ORDERED: fentaNYL PF VIAL 100 MCG/2 ML VIAL IVP PRN ×4 (06:00)
[2020-12-31] MEDS ORDERED: IV RINGERS,LACTATED 1000ML 1,000 ML IV SCH ×2 (06:00)
[2020-12-31] MEDS: IPRATRPIUM/ALBUTEROL 0.5/2.5MG 3 ML NEBU. NEB SCH ×4 (07:36→20:35)
[2020-12-31] MEDS ORDERED: PROPOFOL 10 MG/ML (20ML) VIAL. IV ONE (08:23)
[2020-12-31] MEDS ORDERED: GLYCOPYRROLATE 1 MG/5 ML VIAL. ONE (08:23)
[2020-12-31] MEDS ORDERED: ETOMIDATE 20 MG/10 ML VIAL. IV ONE (08:23)
[2020-12-31] MEDS ORDERED: PHENYLEPHRINE in 0.9% NACL PF 1 MG/10 ML SYRINGE. IV ONE (08:24)
[2020-12-31] MEDS ORDERED: ePHEDrine PF IN SALINE 50 MG/10 ML SYRINGE. IV ONE (08:24)
[2020-12-31] MEDS ORDERED: ROCURONIUM 50 MG/5 ML VIAL. ONE (08:24)
[2020-12-31] MEDS ORDERED: LIDOCAINE 2% PF 5 ML VIAL. ONE (08:24)
[2020-12-31] MEDS ORDERED: SUCCINYLCHOLINE 200 MG/10 ML VIAL. ONE (08:24)
[2020-12-31] MEDS ORDERED: fentaNYL PF VIAL 100 MCG/2 ML VIAL ONE (08:25)
[2020-12-31] MEDS ORDERED: PHENYLEPHRINE 10 MG/ML VIAL. ONE (08:28)
[2020-12-31] MEDS: METOPROLOL SUCC 24HR ER 25 MG TAB.ER.24H. PO SCH (09:00)
[2020-12-31] MEDS: LISINOPRIL 5 MG TABLET. PO SCH (09:00)
[2020-12-31] MEDS: IPRATROPIUM BROMIDE 0.06% NASAL SPRAY 15ML BOTTLE. NS SCH ×2 (09:00→20:46)
[2020-12-31 09:05] LABS: BASO # 0.1 x10^3/uL (0.0-0.2); BASO % 2 % (0-3); EOS # 0.2 x10^3/uL (0.0-0.7); EOS % 3 % (0-3); HEMATOCRIT 21.5 % (39.0-53.0); LYMPH # 0.8 x10^3/uL (1.0-4.8); LYMPH % 14 % (24-48); MEAN CORPUSCULAR HEMOGLOBIN 23 pg (25-35); MEAN CORPUSCULAR HGB CONC 30 g/dL (31-37); MEAN CORPUSCULAR VOLUME 75 fL (79-100); MONO # 0.6 x10^3/uL (0.0-1.1); MONO % 11 % (0-9); NEUT # 4.1 x10^3/uL (1.8-7.7); NEUT % 70 % (31-73); PLATELET COUNT 162 x10^3/uL (140-400); RED BLOOD COUNT 2.86 x10^6/uL (4.30-5.70); RED CELL DISTRIBUTION WIDTH 21.1 % (11.5-14.5); WHITE BLOOD COUNT 5.9 x10^3/uL (4.0-11.0)
[2020-12-31 09:08] LABS: HEMOGLOBIN 6.5 g/dL (13.0-17.5)
[2020-12-31 09:14] LABS: CALCIUM 7.6 mg/dL (8.5-10.1); CREATININE 1.6 mg/dL (0.7-1.3); GFR 42.1
--- NOTE | 2020-12-31 09:47 | PDOC ---
PULMONARY PROGRESS NOTE Diagnosis PROBLEM LIST Problems Medical Problems: (1) Abdominal pain Status: Acute Objective Vital Signs Date Time Temp Pulse Resp B/P (MAP) Pulse Ox O2 Delivery O2 Flow Rate FiO2 12/31/20 07:36 99 Nasal Cannula 4.0 12/31/20 07:00 95.6 69 26 81/45 (57) 95.6 Intake and Output 12/31/20 06:59 Intake Total 1440 ml Output Total 400 ml Balance 1040 ml Intake Oral 1440 ml Output Urine Total 400 ml # Voids 2 VITALS/I&O Vital Sign - Last 24 Hours 12/30/20 12/30/20 12/30/20 12/30/20 11:00 12:01 12:01 15:00 Temp 97.2 97.1 97.2 97.1 Pulse 69 69 69 73 Resp 14 16 B/P (MAP) 115/60 (78) 115/60 115/60 106/61 (76) Pulse Ox 97 97 O2 Delivery Nasal Cannula Nasal Cannula O2 Flow Rate 4.0 4.0 12/30/20 12/30/20 12/30/20 12/30/20 19:00 20:05 22:10 23:03 Temp 96.9 96.6 96.9 96.6 Pulse 69 70 Resp 20 20 B/P (MAP) 97/58 (71) 108/58 (75) Pulse Ox 96 98 96 O2 Delivery Nasal Cannula Nasal Cannula Nasal Cannula Nasal Cannula O2 Flow Rate 4.0 4.0 4.0 12/31/20 12/31/20 12/31/20 03:45 07:00 07:36 Temp 97.7 95.6 97.7 95.6 Pulse 69 69 Resp 20 26 B/P (MAP) 98/56 (70) 81/45 (57) Pulse Ox 91 100 99 O2 Delivery Room Air Room Air Nasal Cannula O2 Flow Rate 4.0 Intake and Output 12/30/20 12/30/20 12/31/20 14:59 22:59 06:59 Intake Total 960 ml 480 ml Output Total 400 ml Balance 960 ml 480 ml -400 ml Review of Relevant I have reviewed the following items jay (where applicable) has been applied. Labs Laboratory Tests Test 12/29/20 11:05 12/29/20 11:19 12/29/20 15:11 12/29/20 19:55 White Blood Count 7.1 x10^3/uL (4.0-11.0) Red Blood Count 3.24 x10^6/uL (4.30-5.70) Hemoglobin 7.2 g/dL (13.0-17.5) Hematocrit 24.6 % (39.0-53.0) Mean Corpuscular Volume 76 fL (79-100) Mean Corpuscular Hemoglobin 22 pg (25-35) Mean Corpuscular Hemoglobin Concent 29 g/dL (31-37) Red Cell Distribution Width 20.5 % (11.5-14.5) Platelet Count 180 x10^3/uL (140-400) Neutrophils (%) (Auto) 75 % (31-73) Lymphocytes (%) (Auto) 10 % (24-48) Monocytes (%) (Auto) 10 % (0-9) Eosinophils (%) (Auto) 3 % (0-3) Basophils (%) (Auto) 2 % (0-3) Neutrophils # (Auto) 5.3 x10^3/uL (1.8-7.7) Lymphocytes # (Auto) 0.7 x10^3/uL (1.0-4.8) Monocytes # (Auto) 0.7 x10^3/uL (0.0-1.1) Eosinophils # (Auto) 0.2 x10^3/uL (0.0-0.7) Basophils # (Auto) 0.1 x10^3/uL (0.0-0.2) Platelet Estimate Adequate (ADEQUATE) Hypochromasia Present Anisocytosis Present Tear Drop Cells Present Ovalocytes Present Prothrombin Time 17.6 SEC (11.7-14.0) Prothromb Time International Ratio 1.5 (0.8-1.1) Activated Partial Thromboplast Time 33 SEC (24-38) Sodium Level 143 mmol/L (136-145) Potassium Level 4.5 mmol/L (3.5-5.1) Chloride Level 107 mmol/L (98-107) Carbon Dioxide Level 26 mmol/L (21-32) Anion Gap 10 (6-14) Blood Urea Nitrogen 26 mg/dL (8-26) Creatinine 1.6 mg/dL (0.7-1.3) Estimated GFR (Cockcroft-Gault) 42.1 Glucose Level 106 mg/dL (70-99) Lactic Acid Level 3.8 mmol/L (0.4-2.0) 1.3 mmol/L (0.4-2.0) Calcium Level 8.0 mg/dL (8.5-10.1) Total Bilirubin 1.6 mg/dL (0.2-1.0) Direct Bilirubin 0.6 mg/dL (0.0-0.2) Aspartate Amino Transf (AST/SGOT) 27 U/L (15-37) Alanine Aminotransferase (ALT/SGPT) 28 U/L (16-63) Alkaline Phosphatase 152 U/L (46-116) Troponin I Quantitative 0.072 ng/mL (0.000-0.055) YX-Lpt-A-Type Natriuretic Peptide 7099 pg/mL (0-449) Total Protein 6.5 g/dL (6.4-8.2) Albumin 3.1 g/dL (3.4-5.0) Lipase 169 U/L (73-393) Coronavirus (PCR) Not detected (Not Detected) Urine Collection Type Unknown Urine Color Yellow Urine Clarity Turbid Urine pH 5.5 (<5.0-8.0) Urine Specific [place] 1.015 (1.000-1.030) Urine Protein Negative mg/dL (NEG-TRACE) Urine Glucose (UA) Negative mg/dL (NEG) Urine Ketones (Stick) Negative mg/dL (NEG) Urine Blood Negative (NEG) Urine Nitrite Negative (NEG) Urine Bilirubin Negative (NEG) Urine Urobilinogen Dipstick 1.0 mg/dL (0.2 mg/dL) Urine Leukocyte Esterase Negative (NEG) Urine RBC 0 /HPF (0-2) Urine WBC 0 /HPF (0-4) Urine Squamous Epithelial Cells Few /LPF Urine Bacteria 0 /HPF (0-FEW) Test 12/30/20 12:23 12/31/20 07:55 Prothrombin Time 17.9 SEC (11.7-14.0) 18.0 SEC (11.7-14.0) Prothromb Time International Ratio 1.5 (0.8-1.1) 1.5 (0.8-1.1) White Blood Count 5.9 x10^3/uL (4.0-11.0) Red Blood Count 2.86 x10^6/uL (4.30-5.70) Hemoglobin 6.5 g/dL (13.0-17.5) Hematocrit 21.5 % (39.0-53.0) Mean Corpuscular Volume 75 fL (79-100) Mean Corpuscular Hemoglobin 23 pg (25-35) Mean Corpuscular Hemoglobin Concent 30 g/dL (31-37) Red Cell Distribution Width 21.1 % (11.5-14.5) Platelet Count 162 x10^3/uL (140-400) Neutrophils (%) (Auto) 70 % (31-73) Lymphocytes (%) (Auto) 14 % (24-48) Monocytes (%) (Auto) 11 % (0-9) Eosinophils (%) (Auto) 3 % (0-3) Basophils (%) (Auto) 2 % (0-3) Neutrophils # (Auto) 4.1 x10^3/uL (1.8-7.7) Lymphocytes # (Auto) 0.8 x10^3/uL (1.0-4.8) Monocytes # (Auto) 0.6 x10^3/uL (0.0-1.1) Eosinophils # (Auto) 0.2 x10^3/uL (0.0-0.7) Basophils # (Auto) 0.1 x10^3/uL (0.0-0.2) Sodium Level 141 mmol/L (136-145) Potassium Level 4.0 mmol/L (3.5-5.1) Chloride Level 106 mmol/L (98-107) Carbon Dioxide Level 24 mmol/L (21-32) Anion Gap 11 (6-14) Blood Urea Nitrogen 28 mg/dL (8-26) Creatinine 1.6 mg/dL (0.7-1.3) Estimated GFR (Cockcroft-Gault) 42.1 Glucose Level 89 mg/dL (70-99) Calcium Level 7.6 mg/dL (8.5-10.1) Laboratory Tests Test 12/30/20 12:23 12/31/20 07:55 Prothrombin Time 17.9 SEC (11.7-14.0) 18.0 SEC (11.7-14.0) Prothromb Time International Ratio 1.5 (0.8-1.1) 1.5 (0.8-1.1) White Blood Count 5.9 x10^3/uL (4.0-11.0) Red Blood Count 2.86 x10^6/uL (4.30-5.70) Hemoglobin 6.5 g/dL (13.0-17.5) Hematocrit 21.5 % (39.0-53.0) Mean Corpuscular Volume 75 fL (79-100) Mean Corpuscular Hemoglobin 23 pg (25-35) Mean Corpuscular Hemoglobin Concent 30 g/dL (31-37) Red Cell Distribution Width 21.1 % (11.5-14.5) Platelet Count 162 x10^3/uL (140-400) Neutrophils (%) (Auto) 70 % (31-73) Lymphocytes (%) (Auto) 14 % (24-48) Monocytes (%) (Auto) 11 % (0-9) Eosinophils (%) (Auto) 3 % (0-3) Basophils (%) (Auto) 2 % (0-3) Neutrophils # (Auto) 4.1 x10^3/uL (1.8-7.7) Lymphocytes # (Auto) 0.8 x10^3/uL (1.0-4.8) Monocytes # (Auto) 0.6 x10^3/uL (0.0-1.1) Eosinophils # (Auto) 0.2 x10^3/uL (0.0-0.7) Basophils # (Auto) 0.1 x10^3/uL (0.0-0.2) Sodium Level 141 mmol/L (136-145) Potassium Level 4.0 mmol/L (3.5-5.1) Chloride Level 106 mmol/L (98-107) Carbon Dioxide Level 24 mmol/L (21-32) Anion Gap 11 (6-14) Blood Urea Nitrogen 28 mg/dL (8-26) Creatinine 1.6 mg/dL (0.7-1.3) Estimated GFR (Cockcroft-Gault) 42.1 Glucose Level 89 mg/dL (70-99) Calcium Level 7.6 mg/dL (8.5-10.1) Microbiology 12/29/20 Blood Culture - Preliminary, Resulted NO GROWTH AFTER 1 DAY Medications Current Medications Phytonadione (Vitamin K Ampule) 10 mg 1X ONCE SQ Last administered on 12/29/20at 12:57; Start 12/29/20 at 12:30; Stop 12/29/20 at 12:31; Status DC Piperacillin Sod/ Tazobactam Sod (Zosyn Per Pharmacy) 1 each PRN DAILY PRN MC SEE COMMENTS; Start 12/29/20 at 12:30; Stop 12/30/20 at 13:32; Status DC Piperacillin Sod/ Tazobactam Sod 3.375 gm/Sodium Chloride 50 ml @ 100 mls/hr ONCE ONCE IV Last administered on 12/29/20at 14:18; Start 12/29/20 at 13:00; Stop 12/29/20 at 13:29; Status DC Piperacillin Sod/ Tazobactam Sod 3.375 gm/Sodium Chloride 50 ml @ 100 mls/hr Q6HRS IV Last administered on 12/30/20at 12:01; Start 12/29/20 at 19:00; Stop 12/30/20 at 13:32; Status DC Aspirin (Aspirin Chewable) 81 mg DAILY PO Last administered on 12/30/20at 12:00; Start 12/30/20 at 12:30 Furosemide (Lasix) 40 mg DAILY PO Last administered on 12/30/20at 12:01; Start 12/30/20 at 12:30 Gabapentin (Neurontin) 300 mg DAILYWSUP PO Last administered on 12/30/20at 17:26; Start 12/30/20 at 17:00 Ipratropium [place] (Atrovent) 1 mg QID NEB ; Start 12/30/20 at 13:00; Stop 12/30/20 at 11:54; Status DC Ipratropium [place] (Atrovent Nasal) 2 spray BID NS Last administered on 12/30/20at 21:48; Start 12/30/20 at 21:00 Lisinopril (Prinivil) 5 mg DAILY PO Last administered on 12/30/20at 12:01; Start 12/30/20 at 12:30 Metoprolol Succinate (Toprol Xl) 25 mg DAILY PO Last administered on 12/30/20at 12:01; Start 12/30/20 at 12:30 Pantoprazole Sodium (Protonix) 40 mg DAILYAC PO Last administered on 12/30/20at 12:00; Start 12/30/20 at 12:30 Pregabalin (Lyrica) 75 mg BID PO Last administered on 12/30/20at 21:49; Start 12/30/20 at 21:00 Senna/Docusate Sodium (Senna Plus) 2 tab QHS PO Last administered on 12/30/20at 21:48; Start 12/30/20 at 21:00 Sertraline HCl (Zoloft) 50 mg DAILY PO Last administered on 12/30/20at 12:01; Start 12/30/20 at 12:30 Albuterol/ Ipratropium (Duoneb) 3 ml RTQID NEB Last administered on 12/31/20at 07:36; Start 12/30/20 at 12:00 Atorvastatin Calcium (Lipitor) 10 mg DAILY PO Last administered on 12/30/20at 12:01; Start 12/30/20 at 12:30 Potassium Chloride (Klor-Con) 10 meq DAILYWBKFT PO Last administered on 12/30/20at 12:00; Start 12/30/20 at 12:30 Fentanyl Citrate (Fentanyl 2ml Vial) 25 mcg PRN Q5MIN PRN IVP MILD PAIN 1-3; Start 12/31/20 at 06:00; Stop 01/01/21 at 05:59 Fentanyl Citrate (Fentanyl 2ml Vial) 50 mcg PRN Q5MIN PRN IVP MODERATE PAIN 4- 6; Start 12/31/20 at 06:00; Stop 01/01/21 at 05:59 Morphine Sulfate (Morphine Sulfate) 1 mg PRN Q10MIN PRN IVP SEVERE PAIN 7-10; Start 12/31/20 at 06:00; Stop 01/01/21 at 05:59 Ringer's Solution 1,000 ml @ 30 mls/hr Q24H IV ; Start 12/31/20 at 06:00; Stop 12/31/20 at 17:59 Hydromorphone HCl (Dilaudid) 0.5 mg PRN Q10MIN PRN IVP SEVERE PAIN 7-10, 2nd CHOICE; Start 12/31/20 at 06:00; Stop 01/01/21 at 05:59 Prochlorperazine Edisylate (Compazine) 5 mg PACU PRN PRN IVP NAUSEA, MRX1; Start 12/31/20 at 06:00; Stop 01/01/21 at 05:59 Fentanyl Citrate (Fentanyl 2ml Vial) 25 mcg PRN Q5MIN PRN IVP MILD PAIN 1-3; Start 12/31/20 at 06:00; Stop 01/01/21 at 05:59; Status UNV Fentanyl Citrate (Fentanyl 2ml Vial) 50 mcg PRN Q5MIN PRN IVP MODERATE PAIN 4- 6; Start 12/31/20 at 06:00; Stop 01/01/21 at 05:59; Status UNV Morphine Sulfate (Morphine Sulfate) 1 mg PRN Q10MIN PRN IVP SEVERE PAIN 7-10; Start 12/31/20 at 06:00; Stop 01/01/21 at 05:59; Status UNV Ringer's Solution 1,000 ml @ 30 mls/hr Q24H IV ; Start 12/31/20 at 06:00; Stop 12/31/20 at 17:59; Status UNV Hydromorphone HCl (Dilaudid) 0.5 mg PRN Q10MIN PRN IVP SEVERE PAIN 7-10, 2nd CHOICE; Start 12/31/20 at 06:00; Stop 01/01/21 at 05:59; Status UNV Prochlorperazine Edisylate (Compazine) 5 mg PACU PRN PRN IVP NAUSEA, MRX1; Start 12/31/20 at 06:00; Stop 01/01/21 at 05:59; Status UNV Furosemide (Lasix) 40 mg 1X ONCE IVP Last administered on 12/30/20at 17:27; Start 12/30/20 at 17:00; Stop 12/30/20 at 17:01; Status DC Glycopyrrolate (Robinul) 1 mg STK-MED ONCE .ROUTE ; Start 12/31/20 at 08:23; Stop 12/31/20 at 08:23; Status DC Propofol (Diprivan) 200 mg STK-MED ONCE IV ; Start 12/31/20 at 08:23; Stop 12/31/20 at 08:23; Status DC Etomidate (Amidate) 20 mg STK-MED ONCE IV ; Start 12/31/20 at 08:23; Stop 12/31/20 at 08:24; Status DC Lidocaine HCl (Lidocaine Pf 2% Vial) 5 ml STK-MED ONCE .ROUTE ; Start 12/31/20 at 08:24; Stop 12/31/20 at 08:24; Status DC Phenylephrine HCl (PHENYLEPHRINE in 0.9% NACL PF) 1 mg STK-MED ONCE IV ; Start 12/31/20 at 08:24; Stop 12/31/20 at 08:24; Status DC Ephedrine Sulfate (ePHEDrine PF IN SALINE SYRINGE) 50 mg STK-MED ONCE IV ; Start 12/31/20 at 08:24; Stop 12/31/20 at 08:24; Status DC Succinylcholine Chloride (Anectine) 200 mg STK-MED ONCE .ROUTE ; Start 12/31/20 at 08:24; Stop 12/31/20 at 08:24; Status DC Rocuronium [place] (Zemuron) 50 mg STK-MED ONCE .ROUTE ; Start 12/31/20 at 08:24; Stop 12/31/20 at 08:25; Status DC Fentanyl Citrate (Fentanyl 2ml Vial) 100 mcg STK-MED ONCE .ROUTE ; Start 12/31/20 at 08:25; Stop 12/31/20 at 08:25; Status DC Phenylephrine HCl (Can-Synephrine Inj) 10 mg STK-MED ONCE .ROUTE ; Start 12/31/20 at 08:28; Stop 12/31/20 at 08:28; Status DC Active Scripts Active Lisinopril 5 Mg Tablet 5 Mg PO DAILY Senna Plus Tablet (Sennosides/Docusate Sodium) 1 Each Tablet 2 Tab PO QHS 14 Days Furosemide 40 Mg Tablet 40 Mg PO DAILY MDD 1 Reported Sertraline Hcl 50 Mg Tablet 50 Mg PO DAILY Budesonide 0.5 Mg/2 Ml Ampul.neb 1 Vial NEB BID Tudorza Pressair (Aclidinium [place]) 400 Mcg Aer.pow.ba 1 Puff IH BID Ipratropium [place] 0.2 Mg/1 Ml Solution 1 Vial NEB QID Klor-Con 10 (Potassium Chloride) 10 Meq Tablet.er 1 Tab PO DAILY 30 Days Lyrica (Pregabalin) 75 Mg Capsule 1 Cap PO BID Ipratropium [place] 15 Ml [place] 2 Sprays NS BID Metoprolol Succinate ( Xl ) (Metoprolol Succinate) 25 Mg Tab.er.24h 1 Tab PO DAILY 30 Days Pantoprazole Sodium 40 Mg Tablet. 1 Tab PO DAILY 30 Days Gabapentin (Gabapentin) 300 Mg Capsule 300 Mg PO DAILYWSUP Aspirin 81 Mg Tab.chew 81 Mg PO DAILY Lovastatin 40 Mg Tablet 1 Tab PO DAILY Justicifation of Admission Dx: Justifications for Admission: Justification of Admission Dx: Yes Respiratory Failure: Severe Resp Distress RADAMES MORALES MD Dec 31, 2020 09:47
--- NOTE | 2020-12-31 10:45 | PDOC ---
[employer] PROGRESS NOTE Date of Service DOS: DATE: 12/31/20 TIME: 10:43 Chief Complaint Chief Complaint Abd pain, fluid overload History of Present Illness History of Present Illness 12/31/2020 Patient seen and examined Discussed surgery date push back DWRN Chart reviewed 12/30/2020 Patient seen and examined Discussed CRC prognosis and he wanted a second opinion on the prognosis. Called Dr. Cullen who is willing to complete surgery if patient decides that is what he wants after second consult DWRN Chart reviewed Vitals/I&O Vitals/I&O: Vital Signs Date Time Temp Pulse Resp B/P (MAP) Pulse Ox O2 Delivery O2 Flow Rate FiO2 12/31/20 07:36 99 Nasal Cannula 4.0 12/31/20 07:00 95.6 69 26 81/45 (57) 95.6 I & O 12/30/20 12/30/20 12/31/20 15:00 23:00 07:00 Intake Total 960 ml 480 ml Output Total 400 ml Balance 960 ml 480 ml -400 ml Physical Exam General: Alert, Oriented X3, Cooperative, No acute distress Heart: Regular rate, Normal S1, Normal S2 Lungs: Crackles Abdomen: Soft, Other (mild distention, some ecchymosis) Extremities: No clubbing, No cyanosis Skin: Other (Brusing on abdomen and on arms) Labs Labs: Laboratory Tests Test 12/30/20 12:23 12/31/20 07:55 Prothrombin Time 17.9 SEC (11.7-14.0) 18.0 SEC (11.7-14.0) Prothromb Time International Ratio 1.5 (0.8-1.1) 1.5 (0.8-1.1) White Blood Count 5.9 x10^3/uL (4.0-11.0) Red Blood Count 2.86 x10^6/uL (4.30-5.70) Hemoglobin 6.5 g/dL (13.0-17.5) Hematocrit 21.5 % (39.0-53.0) Mean Corpuscular Volume 75 fL (79-100) Mean Corpuscular Hemoglobin 23 pg (25-35) Mean Corpuscular Hemoglobin Concent 30 g/dL (31-37) Red Cell Distribution Width 21.1 % (11.5-14.5) Platelet Count 162 x10^3/uL (140-400) Neutrophils (%) (Auto) 70 % (31-73) Lymphocytes (%) (Auto) 14 % (24-48) Monocytes (%) (Auto) 11 % (0-9) Eosinophils (%) (Auto) 3 % (0-3) Basophils (%) (Auto) 2 % (0-3) Neutrophils # (Auto) 4.1 x10^3/uL (1.8-7.7) Lymphocytes # (Auto) 0.8 x10^3/uL (1.0-4.8) Monocytes # (Auto) 0.6 x10^3/uL (0.0-1.1) Eosinophils # (Auto) 0.2 x10^3/uL (0.0-0.7) Basophils # (Auto) 0.1 x10^3/uL (0.0-0.2) Sodium Level 141 mmol/L (136-145) Potassium Level 4.0 mmol/L (3.5-5.1) Chloride Level 106 mmol/L (98-107) Carbon Dioxide Level 24 mmol/L (21-32) Anion Gap 11 (6-14) Blood Urea Nitrogen 28 mg/dL (8-26) Creatinine 1.6 mg/dL (0.7-1.3) Estimated GFR (Cockcroft-Gault) 42.1 Glucose Level 89 mg/dL (70-99) Calcium Level 7.6 mg/dL (8.5-10.1) Review of Systems Review of Systems: Patient denied fever or headache Assessment and Plan Assessmemt and Plan Problems Medical Problems: (1) Abdominal pain Status: Acute Colon cancer CAD Arrhythmias Constipation COPD hyperlipidemia Shingles Coronary artery bypass surgery Defibrillator, Previous tobacco abuse. Plan Surgery pushed to 01/04/21 Patient had HgB 6.5, transfused 2 units packed RBC Hold lisinopril and Metoprolol due to hypotension Cont IV abx Cont clear liquid diet B/L SCD Cont home meds Monitor cardiac cont trend labs Comment Review of Relevant I have reviewed the following items jay (where applicable) has been applied. Medications: Current Medications Medications (Trade) Dose Ordered Sig/Minerva Route PRN Reason Start Time Stop Time Status Last Admin Dose Admin Aspirin (Aspirin Chewable) 81 mg DAILY PO 12/30/20 12:30 12/30/20 12:00 Furosemide (Lasix) 40 mg DAILY PO 12/30/20 12:30 12/30/20 12:01 Gabapentin (Neurontin) 300 mg DAILYWSUP PO 12/30/20 17:00 12/30/20 17:26 Ipratropium [place] (Atrovent Nasal) 2 spray BID NS 12/30/20 21:00 12/30/20 21:48 Lisinopril (Prinivil) 5 mg DAILY PO 12/30/20 12:30 12/30/20 12:01 Metoprolol Succinate (Toprol Xl) 25 mg DAILY PO 12/30/20 12:30 12/30/20 12:01 Pantoprazole Sodium (Protonix) 40 mg DAILYAC PO 12/30/20 12:30 12/30/20 12:00 Pregabalin (Lyrica) 75 mg BID PO 12/30/20 21:00 12/30/20 21:49 Senna/Docusate Sodium (Senna Plus) 2 tab QHS PO 12/30/20 21:00 12/30/20 21:48 Sertraline HCl (Zoloft) 50 mg DAILY PO 12/30/20 12:30 12/30/20 12:01 Albuterol/ Ipratropium (Duoneb) 3 ml RTQID NEB 12/30/20 12:00 12/31/20 07:36 Atorvastatin Calcium (Lipitor) 10 mg DAILY PO 12/30/20 12:30 12/30/20 12:01 Potassium Chloride (Klor-Con) 10 meq DAILYWBKFT PO 12/30/20 12:30 12/30/20 12:00 Furosemide (Lasix) 40 mg 1X ONCE IVP 12/30/20 17:00 12/30/20 17:01 DC 12/30/20 17:27 Justifications for Admission Other Justification BIRD RUSSELL III DO Dec 31, 2020 10:45
--- NOTE | 2020-12-31 10:48 | PDOC ---
SURGICAL PROGRESS NOTE DATE: 12/31/20 TIME: 10:42 Subjective Pt without new c/o, some SOA Vital Signs Vital Signs Date Time Temp Pulse Resp B/P (MAP) Pulse Ox O2 Delivery O2 Flow Rate FiO2 12/31/20 07:36 99 Nasal Cannula 4.0 12/31/20 07:00 95.6 69 26 81/45 (57) 95.6 I&O Intake and Output 12/31/20 07:00 Intake Total 1440 ml Output Total 400 ml Balance 1040 ml Intake Oral 1440 ml Output Urine Total 400 ml # Voids 2 General: Alert, Oriented X3, Cooperative, mild distress Abdomen: Soft, No tenderness Labs Laboratory Tests Test 12/29/20 11:05 12/29/20 11:19 12/29/20 15:11 12/29/20 19:55 White Blood Count 7.1 x10^3/uL (4.0-11.0) Red Blood Count 3.24 x10^6/uL (4.30-5.70) Hemoglobin 7.2 g/dL (13.0-17.5) Hematocrit 24.6 % (39.0-53.0) Mean Corpuscular Volume 76 fL (79-100) Mean Corpuscular Hemoglobin 22 pg (25-35) Mean Corpuscular Hemoglobin Concent 29 g/dL (31-37) Red Cell Distribution Width 20.5 % (11.5-14.5) Platelet Count 180 x10^3/uL (140-400) Neutrophils (%) (Auto) 75 % (31-73) Lymphocytes (%) (Auto) 10 % (24-48) Monocytes (%) (Auto) 10 % (0-9) Eosinophils (%) (Auto) 3 % (0-3) Basophils (%) (Auto) 2 % (0-3) Neutrophils # (Auto) 5.3 x10^3/uL (1.8-7.7) Lymphocytes # (Auto) 0.7 x10^3/uL (1.0-4.8) Monocytes # (Auto) 0.7 x10^3/uL (0.0-1.1) Eosinophils # (Auto) 0.2 x10^3/uL (0.0-0.7) Basophils # (Auto) 0.1 x10^3/uL (0.0-0.2) Platelet Estimate Adequate (ADEQUATE) Hypochromasia Present Anisocytosis Present Tear Drop Cells Present Ovalocytes Present Prothrombin Time 17.6 SEC (11.7-14.0) Prothromb Time International Ratio 1.5 (0.8-1.1) Activated Partial Thromboplast Time 33 SEC (24-38) Sodium Level 143 mmol/L (136-145) Potassium Level 4.5 mmol/L (3.5-5.1) Chloride Level 107 mmol/L (98-107) Carbon Dioxide Level 26 mmol/L (21-32) Anion Gap 10 (6-14) Blood Urea Nitrogen 26 mg/dL (8-26) Creatinine 1.6 mg/dL (0.7-1.3) Estimated GFR (Cockcroft-Gault) 42.1 Glucose Level 106 mg/dL (70-99) Lactic Acid Level 3.8 mmol/L (0.4-2.0) 1.3 mmol/L (0.4-2.0) Calcium Level 8.0 mg/dL (8.5-10.1) Total Bilirubin 1.6 mg/dL (0.2-1.0) Direct Bilirubin 0.6 mg/dL (0.0-0.2) Aspartate Amino Transf (AST/SGOT) 27 U/L (15-37) Alanine Aminotransferase (ALT/SGPT) 28 U/L (16-63) Alkaline Phosphatase 152 U/L (46-116) Troponin I Quantitative 0.072 ng/mL (0.000-0.055) FH-Vtn-S-Type Natriuretic Peptide 7099 pg/mL (0-449) Total Protein 6.5 g/dL (6.4-8.2) Albumin 3.1 g/dL (3.4-5.0) Lipase 169 U/L (73-393) Coronavirus (PCR) Not detected (Not Detected) Urine Collection Type Unknown Urine Color Yellow Urine Clarity Turbid Urine pH 5.5 (<5.0-8.0) Urine Specific [place] 1.015 (1.000-1.030) Urine Protein Negative mg/dL (NEG-TRACE) Urine Glucose (UA) Negative mg/dL (NEG) Urine Ketones (Stick) Negative mg/dL (NEG) Urine Blood Negative (NEG) Urine Nitrite Negative (NEG) Urine Bilirubin Negative (NEG) Urine Urobilinogen Dipstick 1.0 mg/dL (0.2 mg/dL) Urine Leukocyte Esterase Negative (NEG) Urine RBC 0 /HPF (0-2) Urine WBC 0 /HPF (0-4) Urine Squamous Epithelial Cells Few /LPF Urine Bacteria 0 /HPF (0-FEW) Test 12/30/20 12:23 12/31/20 07:55 Prothrombin Time 17.9 SEC (11.7-14.0) 18.0 SEC (11.7-14.0) Prothromb Time International Ratio 1.5 (0.8-1.1) 1.5 (0.8-1.1) White Blood Count 5.9 x10^3/uL (4.0-11.0) Red Blood Count 2.86 x10^6/uL (4.30-5.70) Hemoglobin 6.5 g/dL (13.0-17.5) Hematocrit 21.5 % (39.0-53.0) Mean Corpuscular Volume 75 fL (79-100) Mean Corpuscular Hemoglobin 23 pg (25-35) Mean Corpuscular Hemoglobin Concent 30 g/dL (31-37) Red Cell Distribution Width 21.1 % (11.5-14.5) Platelet Count 162 x10^3/uL (140-400) Neutrophils (%) (Auto) 70 % (31-73) Lymphocytes (%) (Auto) 14 % (24-48) Monocytes (%) (Auto) 11 % (0-9) Eosinophils (%) (Auto) 3 % (0-3) Basophils (%) (Auto) 2 % (0-3) Neutrophils # (Auto) 4.1 x10^3/uL (1.8-7.7) Lymphocytes # (Auto) 0.8 x10^3/uL (1.0-4.8) Monocytes # (Auto) 0.6 x10^3/uL (0.0-1.1) Eosinophils # (Auto) 0.2 x10^3/uL (0.0-0.7) Basophils # (Auto) 0.1 x10^3/uL (0.0-0.2) Sodium Level 141 mmol/L (136-145) Potassium Level 4.0 mmol/L (3.5-5.1) Chloride Level 106 mmol/L (98-107) Carbon Dioxide Level 24 mmol/L (21-32) Anion Gap 11 (6-14) Blood Urea Nitrogen 28 mg/dL (8-26) Creatinine 1.6 mg/dL (0.7-1.3) Estimated GFR (Cockcroft-Gault) 42.1 Glucose Level 89 mg/dL (70-99) Calcium Level 7.6 mg/dL (8.5-10.1) Laboratory Tests Test 12/30/20 12:23 12/31/20 07:55 Prothrombin Time 17.9 SEC (11.7-14.0) 18.0 SEC (11.7-14.0) Prothromb Time International Ratio 1.5 (0.8-1.1) 1.5 (0.8-1.1) White Blood Count 5.9 x10^3/uL (4.0-11.0) Red Blood Count 2.86 x10^6/uL (4.30-5.70) Hemoglobin 6.5 g/dL (13.0-17.5) Hematocrit 21.5 % (39.0-53.0) Mean Corpuscular Volume 75 fL (79-100) Mean Corpuscular Hemoglobin 23 pg (25-35) Mean Corpuscular Hemoglobin Concent 30 g/dL (31-37) Red Cell Distribution Width 21.1 % (11.5-14.5) Platelet Count 162 x10^3/uL (140-400) Neutrophils (%) (Auto) 70 % (31-73) Lymphocytes (%) (Auto) 14 % (24-48) Monocytes (%) (Auto) 11 % (0-9) Eosinophils (%) (Auto) 3 % (0-3) Basophils (%) (Auto) 2 % (0-3) Neutrophils # (Auto) 4.1 x10^3/uL (1.8-7.7) Lymphocytes # (Auto) 0.8 x10^3/uL (1.0-4.8) Monocytes # (Auto) 0.6 x10^3/uL (0.0-1.1) Eosinophils # (Auto) 0.2 x10^3/uL (0.0-0.7) Basophils # (Auto) 0.1 x10^3/uL (0.0-0.2) Sodium Level 141 mmol/L (136-145) Potassium Level 4.0 mmol/L (3.5-5.1) Chloride Level 106 mmol/L (98-107) Carbon Dioxide Level 24 mmol/L (21-32) Anion Gap 11 (6-14) Blood Urea Nitrogen 28 mg/dL (8-26) Creatinine 1.6 mg/dL (0.7-1.3) Estimated GFR (Cockcroft-Gault) 42.1 Glucose Level 89 mg/dL (70-99) Calcium Level 7.6 mg/dL (8.5-10.1) Problem List Problems Medical Problems: (1) Abdominal pain Status: Acute Assessment/Plan Right colon mass, favor malignancy pt was tentatively scheduled for today for right colon resection. However, given concern for fluid overload, anemia, elevated INR and background of severe COPD, and that no evidence of obstruction by imaging, will delay until 3/2. Will gently prep in the mean time and provide nutrition supplements. Hopefully will be medically maximized at that point and appreciate pulm, cards and hospitalist in this. D/w pt and pt's supportive . Justicifation of Admission Dx: Justifications for Admission: Justification of Admission Dx: Yes Respiratory Failure: Severe Resp Distress MADDIE REYES MD Dec 31, 2020 10:48
[2020-12-31] MEDS: ASPIRIN CHEWABLE 81 MG TABLET. PO SCH (10:49)
[2020-12-31] MEDS: PREGABALIN 75 MG CAPSULE PO SCH ×2 (10:49→21:07)
[2020-12-31] MEDS: ATORVASTATIN CALCIUM 10 MG TABLET. PO SCH (10:49)
[2020-12-31] MEDS: PANTOPRAZOLE 40 MG TABLET.DR. PO SCH ×2 (10:50→21:06)
[2020-12-31] MEDS: SERTRALINE 50 MG TABLET. PO SCH (10:50)
[2020-12-31] MEDS: FUROSEMIDE 40 MG TABLET. PO SCH (10:50)
[2020-12-31] MEDS: POTASSIUM CHLORIDE 10 MEQ TABLET.ER. PO SCH (10:50)
--- NOTE | 2020-12-31 11:17 | NUR ---
Pt scheduled for colon resection this morning. Was postponed until sunday due to Exacerb CHF and Heg 6.5. Received orders from Dr Murdock for 2u PRBC. Consent reviewed and signed. was at bedside. Pt was seen by Dr Murdock, Dr James this morning as well as Remedios MORATAYA.
--- NOTE | 2020-12-31 11:19 | PDOC2 ---
CONSULT Date of Consult Date of Consult DATE: 12/31/20 TIME: 11:09 Reason for Consult Reason for Consult: Colon cancer Referring Physician Referring Physician: Dr. Murdock Identification/Chief Complaint Chief Complaint Abdominal pain and distention Source Source: Patient History of Present Illness Reason for Visit: Rodger Holm is a 75-year-old male with recently diagnosed colon cancer who has been admitted to the hospital after presenting with worsening abdominal distention. Rodger received a colonoscopy in October 2020 which showed a circumferential mass in the hepatic flexure. Biopsy showed invasive colonic adenocarcinoma. He was subsequently lost to follow-up. Patient presented to the hospital with worsening abdominal distention for the past few days. He denies associated fever or chills. Denies nausea or vomiting. He does report having issues with constipation recently. He has been taking laxatives to manage constipation. He denies weight loss. CT of the abdomen and pelvis has been obtained and shows a small amount of perihepatic ascites but no additional new findings. He has been seen by Dr. Cullen and surgical resection of his colonic primary has been recommended. Patient plans on proceeding with this. Medical oncology consultation has been sought due to the patient's history of colon cancer Past Medical History Cardiovascular: CAD, CHF, HTN, Hyperlipidemia, Other Pulmonary: COPD CENTRAL NERVOUS SYSTEM: Other GI: Diverticulosis, GERD Heme/Onc: Anemia NOS Hepatobiliary: No pertinent hx Psych: No pertinent hx Musculoskeletal: low back pain, Osteoarthritis Rheumatologic: No pertinent hx Infectious disease: Herpes zoster Renal/: Benign prostatic enlarg., Prostate Ca. Past Surgical History Past Surgical History: Pacemaker, CABG, Other Family History Family History: Coronary Artery Disease Social History Quit ALCOHOL: none Drugs: None Lives: with Family Current Problem List Problem List Problems Medical Problems: (1) Abdominal pain Status: Acute Current Medications Current Medications Current Medications Phytonadione (Vitamin K Ampule) 10 mg 1X ONCE SQ Last administered on 12/29/20at 12:57; Start 12/29/20 at 12:30; Stop 12/29/20 at 12:31; Status DC Piperacillin Sod/ Tazobactam Sod (Zosyn Per Pharmacy) 1 each PRN DAILY PRN MC SEE COMMENTS; Start 12/29/20 at 12:30; Stop 12/30/20 at 13:32; Status DC Piperacillin Sod/ Tazobactam Sod 3.375 gm/Sodium Chloride 50 ml @ 100 mls/hr ONCE ONCE IV Last administered on 12/29/20at 14:18; Start 12/29/20 at 13:00; Stop 12/29/20 at 13:29; Status DC Piperacillin Sod/ Tazobactam Sod 3.375 gm/Sodium Chloride 50 ml @ 100 mls/hr Q6HRS IV Last administered on 12/30/20at 12:01; Start 12/29/20 at 19:00; Stop 12/30/20 at 13:32; Status DC Aspirin (Aspirin Chewable) 81 mg DAILY PO Last administered on 12/31/20at 10:49; Start 12/30/20 at 12:30 Furosemide (Lasix) 40 mg DAILY PO Last administered on 12/31/20at 10:50; Start 12/30/20 at 12:30 Gabapentin (Neurontin) 300 mg DAILYWSUP PO Last administered on 12/30/20at 17:26; Start 12/30/20 at 17:00 Ipratropium Nicholls (Atrovent) 1 mg QID NEB ; Start 12/30/20 at 13:00; Stop 12/30/20 at 11:54; Status DC Ipratropium [place]olls (Atrovent Nasal) 2 spray BID NS Last administered on 12/30/20at 21:48; Start 12/30/20 at 21:00 Lisinopril (Prinivil) 5 mg DAILY PO Last administered on 12/30/20at 12:01; Start 12/30/20 at 12:30 Metoprolol Succinate (Toprol Xl) 25 mg DAILY PO Last administered on 12/30/20 12:01; Start 12/30/20 at 12:30 Pantoprazole Sodium (Protonix) 40 mg DAILYAC PO Last administered on 12/31/20at 10:50; Start 12/30/20 at 12:30 Pregabalin (Lyrica) 75 mg BID PO Last administered on 12/31/20 10:49; Start 12/30/20 at 21:00 Senna/Docusate Sodium (Senna Plus) 2 tab QHS PO Last administered on 12/30/20at 21:48; Start 12/30/20 at 21:00 Sertraline HCl (Zoloft) 50 mg DAILY PO Last administered on 12/31/20at 10:50; Start 12/30/20 at 12:30 Albuterol/ Ipratropium (Duoneb) 3 ml RTQID NEB Last administered on 12/31/20at 07:36; Start 12/30/20 at 12:00 Atorvastatin Calcium (Lipitor) 10 mg DAILY PO Last administered on 12/31/20at 10:49; Start 12/30/20 at 12:30 Potassium Chloride (Klor-Con) 10 meq DAILYWBKFT PO Last administered on 12/31/20at 10:50; Start 12/30/20 at 12:30 Fentanyl Citrate (Fentanyl 2ml Vial) 25 mcg PRN Q5MIN PRN IVP MILD PAIN 1-3; Start 12/31/20 at 06:00; Stop 01/01/21 at 05:59 Fentanyl Citrate (Fentanyl 2ml Vial) 50 mcg PRN Q5MIN PRN IVP MODERATE PAIN 4- 6; Start 12/31/20 at 06:00; Stop 01/01/21 at 05:59 Morphine Sulfate (Morphine Sulfate) 1 mg PRN Q10MIN PRN IVP SEVERE PAIN 7-10; Start 12/31/20 at 06:00; Stop 01/01/21 at 05:59 Ringer's Solution 1,000 ml @ 30 mls/hr Q24H IV ; Start 12/31/20 at 06:00; Stop 12/31/20 at 17:59 Hydromorphone HCl (Dilaudid) 0.5 mg PRN Q10MIN PRN IVP SEVERE PAIN 7-10, 2nd CHOICE; Start 12/31/20 at 06:00; Stop 01/01/21 at 05:59 Prochlorperazine Edisylate (Compazine) 5 mg PACU PRN PRN IVP NAUSEA, MRX1; Start 12/31/20 at 06:00; Stop 01/01/21 at 05:59 Fentanyl Citrate (Fentanyl 2ml Vial) 25 mcg PRN Q5MIN PRN IVP MILD PAIN 1-3; Start 12/31/20 at 06:00; Stop 01/01/21 at 05:59; Status UNV Fentanyl Citrate (Fentanyl 2ml Vial) 50 mcg PRN Q5MIN PRN IVP MODERATE PAIN 4- 6; Start 12/31/20 at 06:00; Stop 01/01/21 at 05:59; Status UNV Morphine Sulfate (Morphine Sulfate) 1 mg PRN Q10MIN PRN IVP SEVERE PAIN 7-10; Start 12/31/20 at 06:00; Stop 01/01/21 at 05:59; Status UNV Ringer's Solution 1,000 ml @ 30 mls/hr Q24H IV ; Start 12/31/20 at 06:00; Stop 12/31/20 at 17:59; Status UNV Hydromorphone HCl (Dilaudid) 0.5 mg PRN Q10MIN PRN IVP SEVERE PAIN 7-10, 2nd CHOICE; Start 12/31/20 at 06:00; Stop 01/01/21 at 05:59; Status UNV Prochlorperazine Edisylate (Compazine) 5 mg PACU PRN PRN IVP NAUSEA, MRX1; Start 12/31/20 at 06:00; Stop 01/01/21 at 05:59; Status UNV Furosemide (Lasix) 40 mg 1X ONCE IVP Last administered on 12/30/20at 17:27; Start 12/30/20 at 17:00; Stop 12/30/20 at 17:01; Status DC Glycopyrrolate (Robinul) 1 mg STK-MED ONCE .ROUTE ; Start 12/31/20 at 08:23; Stop 12/31/20 at 08:23; Status DC Propofol (Diprivan) 200 mg STK-MED ONCE IV ; Start 12/31/20 at 08:23; Stop 12/31/20 at 08:23; Status DC Etomidate (Amidate) 20 mg STK-MED ONCE IV ; Start 12/31/20 at 08:23; Stop 12/31/20 at 08:24; Status DC Lidocaine HCl (Lidocaine Pf 2% Vial) 5 ml STK-MED ONCE .ROUTE ; Start 12/31/20 at 08:24; Stop 12/31/20 at 08:24; Status DC Phenylephrine HCl (PHENYLEPHRINE in 0.9% NACL PF) 1 mg STK-MED ONCE IV ; Start 12/31/20 at 08:24; Stop 12/31/20 at 08:24; Status DC Ephedrine Sulfate (ePHEDrine PF IN SALINE SYRINGE) 50 mg STK-MED ONCE IV ; Start 12/31/20 at 08:24; Stop 12/31/20 at 08:24; Status DC Succinylcholine Chloride (Anectine) 200 mg STK-MED ONCE .ROUTE ; Start 12/31/20 at 08:24; Stop 12/31/20 at 08:24; Status DC Rocuronium Nicholls (Zemuron) 50 mg STK-MED ONCE .ROUTE ; Start 12/31/20 at 08:24; Stop 12/31/20 at 08:25; Status DC Fentanyl Citrate (Fentanyl 2ml Vial) 100 mcg STK-MED ONCE .ROUTE ; Start 12/31/20 at 08:25; Stop 12/31/20 at 08:25; Status DC Phenylephrine HCl (Can-Synephrine Inj) 10 mg STK-MED ONCE .ROUTE ; Start 12/31/20 at 08:28; Stop 12/31/20 at 08:28; Status DC Bisacodyl (Dulcolax Supp) 10 mg DAILY [place] ; Start 01/01/21 at 09:00; Status UNV Polyethylene Glycol (miraLAX PACKET) 17 gm DAILY PO ; Start 01/01/21 at 09:00; Status UNV Iron Sucrose 500 mg/Sodium Chloride 275 ml @ 78.571 mls/ hr 1X ONCE IV ; Start 12/31/20 at 11:15; Stop 12/31/20 at 14:44; Status UNV Active Scripts Active Lisinopril 5 Mg Tablet 5 Mg PO DAILY Senna Plus Tablet (Sennosides/Docusate Sodium) 1 Each Tablet 2 Tab PO QHS 14 Days Furosemide 40 Mg Tablet 40 Mg PO DAILY MDD 1 Reported Sertraline Hcl 50 Mg Tablet 50 Mg PO DAILY Budesonide 0.5 Mg/2 Ml Ampul.neb 1 Vial NEB BID Tudorza Pressair (Aclidinium Nicholls) 400 Mcg Aer.pow.ba 1 Puff IH BID Ipratropium [place]olls 0.2 Mg/1 Ml Solution 1 Vial NEB QID Klor-Con 10 (Potassium Chloride) 10 Meq Tablet.er 1 Tab PO DAILY 30 Days Lyrica (Pregabalin) 75 Mg Capsule 1 Cap PO BID Ipratropium [place]s 15 Ml [place] 2 Sprays NS BID Metoprolol Succinate ( Xl ) (Metoprolol Succinate) 25 Mg Tab.er.24h 1 Tab PO DAILY 30 Days Pantoprazole Sodium 40 Mg Tablet.dr 1 Tab PO DAILY 30 Days Gabapentin (Gabapentin) 300 Mg Capsule 300 Mg PO DAILYWSUP Aspirin 81 Mg Tab.chew 81 Mg PO DAILY Lovastatin 40 Mg Tablet 1 Tab PO DAILY Allergies Allergies: Coded Allergies: No Known Drug Allergies (Unverified , 10/15/20) ROS General: YES: Fatigue, Malaise PSYCHOLOGICAL ROS: No: Hallucinations, Hostility Eyes: No Eye Pain HEENT: No: Oral lesions, Sinus pain ALLERGY AND IMMUNOLOGY: No: Post Nasal Drip Hematological and Lymphatic: YES: Pallor; No: Brusing ENDOCRINE: YES: Malaise/lethargy Respiratory: YES: Shortness of breath Gastrointestinal: Yes Abdominal Pain, Yes Constipation; No Melena, No Hematochezia Genitourinary: No Hematuria, No Retention Musculoskeletal: No Gait Disturbance, No Joint Pain Neurological: No Confusion, No Dizziness Skin: No Eczema, No Hair Changes Physical Exam General: Alert, Oriented X3 HEENT: Atraumatic Heart: Regular rate, Normal S1, Normal S2 Abdomen: Normal bowel sounds, Soft, No masses, Other (Distended abdomen) Skin: No rashes Neuro: Normal speech MUSCULOSKELETAL: No deformity Vitals VITALS Vital Signs Date Time Temp Pulse Resp B/P (MAP) Pulse Ox O2 Delivery O2 Flow Rate FiO2 12/31/20 07:36 99 Nasal Cannula 4.0 12/31/20 07:00 95.6 69 26 81/45 (57) 95.6 Labs Labs Laboratory Tests Test 12/29/20 11:19 12/29/20 15:11 12/29/20 19:55 12/30/20 12:23 Coronavirus (PCR) Not detected (Not Detected) Lactic Acid Level 1.3 mmol/L (0.4-2.0) Urine Collection Type Unknown Urine Color Yellow Urine Clarity Turbid Urine pH 5.5 (<5.0-8.0) Urine Specific [place] 1.015 (1.000-1.030) Urine Protein Negative mg/dL (NEG-TRACE) Urine Glucose (UA) Negative mg/dL (NEG) Urine Ketones (Stick) Negative mg/dL (NEG) Urine Blood Negative (NEG) Urine Nitrite Negative (NEG) Urine Bilirubin Negative (NEG) Urine Urobilinogen Dipstick 1.0 mg/dL (0.2 mg/dL) Urine Leukocyte Esterase Negative (NEG) Urine RBC 0 /HPF (0-2) Urine WBC 0 /HPF (0-4) Urine Squamous Epithelial Cells Few /LPF Urine Bacteria 0 /HPF (0-FEW) Prothrombin Time 17.9 SEC (11.7-14.0) Prothromb Time International Ratio 1.5 (0.8-1.1) Test 12/31/20 07:55 White Blood Count 5.9 x10^3/uL (4.0-11.0) Red Blood Count 2.86 x10^6/uL (4.30-5.70) Hemoglobin 6.5 g/dL (13.0-17.5) Hematocrit 21.5 % (39.0-53.0) Mean Corpuscular Volume 75 fL (79-100) Mean Corpuscular Hemoglobin 23 pg (25-35) Mean Corpuscular Hemoglobin Concent 30 g/dL (31-37) Red Cell Distribution Width 21.1 % (11.5-14.5) Platelet Count 162 x10^3/uL (140-400) Neutrophils (%) (Auto) 70 % (31-73) Lymphocytes (%) (Auto) 14 % (24-48) Monocytes (%) (Auto) 11 % (0-9) Eosinophils (%) (Auto) 3 % (0-3) Basophils (%) (Auto) 2 % (0-3) Neutrophils # (Auto) 4.1 x10^3/uL (1.8-7.7) Lymphocytes # (Auto) 0.8 x10^3/uL (1.0-4.8) Monocytes # (Auto) 0.6 x10^3/uL (0.0-1.1) Eosinophils # (Auto) 0.2 x10^3/uL (0.0-0.7) Basophils # (Auto) 0.1 x10^3/uL (0.0-0.2) Prothrombin Time 18.0 SEC (11.7-14.0) Prothromb Time International Ratio 1.5 (0.8-1.1) Sodium Level 141 mmol/L (136-145) Potassium Level 4.0 mmol/L (3.5-5.1) Chloride Level 106 mmol/L (98-107) Carbon Dioxide Level 24 mmol/L (21-32) Anion Gap 11 (6-14) Blood Urea Nitrogen 28 mg/dL (8-26) Creatinine 1.6 mg/dL (0.7-1.3) Estimated GFR (Cockcroft-Gault) 42.1 Glucose Level 89 mg/dL (70-99) Calcium Level 7.6 mg/dL (8.5-10.1) Laboratory Tests Test 12/30/20 12:23 12/31/20 07:55 Prothrombin Time 17.9 SEC (11.7-14.0) 18.0 SEC (11.7-14.0) Prothromb Time International Ratio 1.5 (0.8-1.1) 1.5 (0.8-1.1) White Blood Count 5.9 x10^3/uL (4.0-11.0) Red Blood Count 2.86 x10^6/uL (4.30-5.70) Hemoglobin 6.5 g/dL (13.0-17.5) Hematocrit 21.5 % (39.0-53.0) Mean Corpuscular Volume 75 fL (79-100) Mean Corpuscular Hemoglobin 23 pg (25-35) Mean Corpuscular Hemoglobin Concent 30 g/dL (31-37) Red Cell Distribution Width 21.1 % (11.5-14.5) Platelet Count 162 x10^3/uL (140-400) Neutrophils (%) (Auto) 70 % (31-73) Lymphocytes (%) (Auto) 14 % (24-48) Monocytes (%) (Auto) 11 % (0-9) Eosinophils (%) (Auto) 3 % (0-3) Basophils (%) (Auto) 2 % (0-3) Neutrophils # (Auto) 4.1 x10^3/uL (1.8-7.7) Lymphocytes # (Auto) 0.8 x10^3/uL (1.0-4.8) Monocytes # (Auto) 0.6 x10^3/uL (0.0-1.1) Eosinophils # (Auto) 0.2 x10^3/uL (0.0-0.7) Basophils # (Auto) 0.1 x10^3/uL (0.0-0.2) Sodium Level 141 mmol/L (136-145) Potassium Level 4.0 mmol/L (3.5-5.1) Chloride Level 106 mmol/L (98-107) Carbon Dioxide Level 24 mmol/L (21-32) Anion Gap 11 (6-14) Blood Urea Nitrogen 28 mg/dL (8-26) Creatinine 1.6 mg/dL (0.7-1.3) Estimated GFR (Cockcroft-Gault) 42.1 Glucose Level 89 mg/dL (70-99) Calcium Level 7.6 mg/dL (8.5-10.1) Assessment/Plan Assessment/Plan Assessment: Colonic adenocarcinoma, hepatic flexure Microcytic anemia, likely secondary to iron deficiency Shortness of breath likely secondary to distended abdomen Coronary artery disease Tobacco use Recommendations: -We will check iron studies and B12 to evaluate anemia. Suspect anemia secondary to iron deficiency from chronic bleeding from colon cancer -Recommend IV iron supplementation. Ordered Venofer 500 mg single dose -Transfuse to keep hemoglobin greater than 7 -I discussed the management of colon cancer with the patient. He has no evidence of distant metastasis based on review of CT of the chest, abdomen and pelvis -We will check CEA to obtain a preoperative baseline -Recommended proceeding with surgical resection with Dr. Cullen. Patient is agreeable to this. Discussed with Dr. Cullen regarding obtaining peritoneal fluid washings given potential for malignant ascites -We will follow along to review surgical pathology results and arrange outpatient follow-up for continuation of care -Rest per Dr. Mathieu Doyle MD Medical Oncology/Hematology Ph: [phone] KIM DOYLE MD Dec 31, 2020 11:19
[2020-12-31 11:54] LABS: URIC ACID 8.6 mg/dL (3.5-7.2)
[2020-12-31] MEDS: POLYETHYLENE GLYCOL 3350 17 GM PACKET. PO SCH (12:00)
[2020-12-31] MEDS: BISACODYL 10 MG SUPP.RECT. PR SCH (12:00)
--- NOTE | 2020-12-31 12:36 | NUR ---
SW following for discharge planning. Spoke with RN and reviewed chart. Pt from home with spouse. Pt currently on 5l 02 and IV pain medication. Surgery cancelled today. Pt will likely have surgery next week ad Hgb low and INR high. SW following.
[2020-12-31] MEDS ORDERED: IRON SUCROSE COMPLEX 500 MG in IV NORMAL SALINE 250ML 250 ML IV ONE (13:00)
--- NOTE | 2020-12-31 13:25 | PDOC ---
PULMONARY PROGRESS NOTES DATE: 12/31/20 TIME: 13:23 Subjective Patient about the same still short of air Vitals Vital Signs Date Time Temp Pulse Resp B/P (MAP) Pulse Ox O2 Delivery O2 Flow Rate FiO2 12/31/20 11:22 96 Nasal Cannula 5.0 12/31/20 11:00 95.9 70 18 89/54 (66) 95.9 ROS: No Nausea, No Chest Pain, No Abdominal Pain, No Increase Cough General: Alert, No acute distress HEENT: Other Lungs: Crackles Cardiovascular: S1, S2 Abdomen: Soft, Non-tender Neuro Exam: Alert Extremities: Other (Edema) Skin: Warm Labs Laboratory Tests Test 12/29/20 15:11 12/29/20 19:55 12/30/20 12:23 12/31/20 07:55 Lactic Acid Level 1.3 mmol/L (0.4-2.0) Urine Collection Type Unknown Urine Color Yellow Urine Clarity Turbid Urine pH 5.5 (<5.0-8.0) Urine Specific [place] 1.015 (1.000-1.030) Urine Protein Negative mg/dL (NEG-TRACE) Urine Glucose (UA) Negative mg/dL (NEG) Urine Ketones (Stick) Negative mg/dL (NEG) Urine Blood Negative (NEG) Urine Nitrite Negative (NEG) Urine Bilirubin Negative (NEG) Urine Urobilinogen Dipstick 1.0 mg/dL (0.2 mg/dL) Urine Leukocyte Esterase Negative (NEG) Urine RBC 0 /HPF (0-2) Urine WBC 0 /HPF (0-4) Urine Squamous Epithelial Cells Few /LPF Urine Bacteria 0 /HPF (0-FEW) Prothrombin Time 17.9 SEC (11.7-14.0) 18.0 SEC (11.7-14.0) Prothromb Time International Ratio 1.5 (0.8-1.1) 1.5 (0.8-1.1) White Blood Count 5.9 x10^3/uL (4.0-11.0) Red Blood Count 2.96 x10^6/uL (4.30-5.70) Hemoglobin 6.5 g/dL (13.0-17.5) Hematocrit 21.5 % (39.0-53.0) Mean Corpuscular Volume 75 fL (79-100) Mean Corpuscular Hemoglobin 23 pg (25-35) Mean Corpuscular Hemoglobin Concent 30 g/dL (31-37) Red Cell Distribution Width 21.1 % (11.5-14.5) Platelet Count 162 x10^3/uL (140-400) Neutrophils (%) (Auto) 70 % (31-73) Lymphocytes (%) (Auto) 14 % (24-48) Monocytes (%) (Auto) 11 % (0-9) Eosinophils (%) (Auto) 3 % (0-3) Basophils (%) (Auto) 2 % (0-3) Neutrophils # (Auto) 4.1 x10^3/uL (1.8-7.7) Lymphocytes # (Auto) 0.8 x10^3/uL (1.0-4.8) Monocytes # (Auto) 0.6 x10^3/uL (0.0-1.1) Eosinophils # (Auto) 0.2 x10^3/uL (0.0-0.7) Basophils # (Auto) 0.1 x10^3/uL (0.0-0.2) Absolute Reticulocyte Count 0.071 x10^6/uL (0.020-0.120) Percent Reticulocyte Count 2.4 % (0.5-2.3) Immature Reticulocyte Fraction 0.48 (0.20-0.60) Sodium Level 141 mmol/L (136-145) Potassium Level 4.0 mmol/L (3.5-5.1) Chloride Level 106 mmol/L (98-107) Carbon Dioxide Level 24 mmol/L (21-32) Anion Gap 11 (6-14) Blood Urea Nitrogen 28 mg/dL (8-26) Creatinine 1.6 mg/dL (0.7-1.3) Estimated GFR (Cockcroft-Gault) 42.1 Glucose Level 89 mg/dL (70-99) Uric Acid 8.6 mg/dL (3.5-7.2) Calcium Level 7.6 mg/dL (8.5-10.1) Iron Level 19 ug/dL (65-175) Total Iron Binding Capacity 329 ug/dL (250-450) Iron Saturation 6 % (15-34) Ferritin 56 ng/mL (26-388) Vitamin B12 Level 804 pg/mL (247-911) Laboratory Tests Test 12/31/20 07:55 White Blood Count 5.9 x10^3/uL (4.0-11.0) Red Blood Count 2.96 x10^6/uL (4.30-5.70) Hemoglobin 6.5 g/dL (13.0-17.5) Hematocrit 21.5 % (39.0-53.0) Mean Corpuscular Volume 75 fL (79-100) Mean Corpuscular Hemoglobin 23 pg (25-35) Mean Corpuscular Hemoglobin Concent 30 g/dL (31-37) Red Cell Distribution Width 21.1 % (11.5-14.5) Platelet Count 162 x10^3/uL (140-400) Neutrophils (%) (Auto) 70 % (31-73) Lymphocytes (%) (Auto) 14 % (24-48) Monocytes (%) (Auto) 11 % (0-9) Eosinophils (%) (Auto) 3 % (0-3) Basophils (%) (Auto) 2 % (0-3) Neutrophils # (Auto) 4.1 x10^3/uL (1.8-7.7) Lymphocytes # (Auto) 0.8 x10^3/uL (1.0-4.8) Monocytes # (Auto) 0.6 x10^3/uL (0.0-1.1) Eosinophils # (Auto) 0.2 x10^3/uL (0.0-0.7) Basophils # (Auto) 0.1 x10^3/uL (0.0-0.2) Absolute Reticulocyte Count 0.071 x10^6/uL (0.020-0.120) Percent Reticulocyte Count 2.4 % (0.5-2.3) Immature Reticulocyte Fraction 0.48 (0.20-0.60) Prothrombin Time 18.0 SEC (11.7-14.0) Prothromb Time International Ratio 1.5 (0.8-1.1) Sodium Level 141 mmol/L (136-145) Potassium Level 4.0 mmol/L (3.5-5.1) Chloride Level 106 mmol/L (98-107) Carbon Dioxide Level 24 mmol/L (21-32) Anion Gap 11 (6-14) Blood Urea Nitrogen 28 mg/dL (8-26) Creatinine 1.6 mg/dL (0.7-1.3) Estimated GFR (Cockcroft-Gault) 42.1 Glucose Level 89 mg/dL (70-99) Uric Acid 8.6 mg/dL (3.5-7.2) Calcium Level 7.6 mg/dL (8.5-10.1) Iron Level 19 ug/dL (65-175) Total Iron Binding Capacity 329 ug/dL (250-450) Iron Saturation 6 % (15-34) Ferritin 56 ng/mL (26-388) Vitamin B12 Level 804 pg/mL (247-911) Medications Active Scripts Medications Dose Route/Sig Max Daily Dose Days Date Category Sertraline Hcl 50 Mg Tablet 50 Mg PO DAILY 12/29/20 Reported Budesonide 0.5 Mg/2 Ml Ampul.neb 1 Vial NEB BID 12/29/20 Reported Tudorza Pressair (Aclidinium [place]) 400 Mcg Aer.pow.ba 1 Puff IH BID 12/29/20 Reported Ipratropium [place] 0.2 Mg/1 Ml Solution 1 Vial NEB QID 12/29/20 Reported Klor-Con 10 (Potassium Chloride) 10 Meq Tablet.er 1 Tab PO DAILY 30 12/29/20 Reported Lyrica (Pregabalin) 75 Mg Capsule 1 Cap PO BID 12/29/20 Reported Lisinopril 5 Mg Tablet 5 Mg PO DAILY 10/17/20 Rx Senna Plus Tablet (Sennosides/Docusate Sodium) 1 Each Tablet 2 Tab PO QHS 14 10/01/20 Rx Ipratropium [place] 15 Ml [place] 2 Sprays NS BID 07/08/20 Reported Metoprolol Succinate ( Xl ) (Metoprolol Succinate) 25 Mg Tab.er.24h 1 Tab PO DAILY 30 07/08/20 Reported Pantoprazole Sodium 40 Mg Tablet.dr 1 Tab PO DAILY 30 07/08/20 Reported Gabapentin (Gabapentin) 300 Mg Capsule 300 Mg PO DAILYWSUP 06/30/19 Reported Aspirin 81 Mg Tab.chew 81 Mg PO DAILY 06/30/19 Reported Furosemide 40 Mg Tablet 40 Mg PO DAILY MDD 1 10/19/18 Rx Lovastatin 40 Mg Tablet 1 Tab PO DAILY 12/14/14 Reported Impression . IMPRESSION: 1. Chronic respiratory failure, multifactorial secondary to severe chronic obstructive pulmonary disease, coronary artery disease, previous coronary artery bypass grafting and deconditioning. 2. Cardiomyopathy, status post coronary artery bypass grafting. 3. Chronic atrial fibrillation. 4. Recent diagnosis of colon cancer. According to Dr. Cullen, the patient is close to obstructing his colon and requires surgical intervention. 5. Ascites Plan . Discussed with Dr. Cullen surgery plan for next week Continue oxygen supplementation Breathing treatments Home meds n per Dr. Cullen. I had multiple discussions with the patient. The patient is aware that he may do poorly, requiring prolonged mechanical support and tracheotomy. The patient informed me that if he does undergo surgical intervention and he still requires mechanical support after 3 weeks out, that if several doctors on the case feel that his chances of meaningful recovery are poor, he wishes to be taken off mechanical support and allow natural . RADAMES MORALES MD Dec 31, 2020 13:25
[2020-12-31] MEDS: GABAPENTIN 300 MG CAPSULE. PO SCH (17:29)
[2020-12-31] MEDS: SENNOSIDES/DOCUSATE 8.6/50MG TABLET. PO SCH (21:06)
[2021-01-01] VITALS (9 sets, daily range): BP systolic 97–127; BP diastolic 48–69
--- NOTE | 2021-01-01 03:30 | NUR ---
Blood was verified with Susie Pacheco RN.
[2021-01-01] MEDS: IPRATRPIUM/ALBUTEROL 0.5/2.5MG 3 ML NEBU. NEB SCH ×4 (07:46→19:50)
[2021-01-01] MEDS: PREGABALIN 75 MG CAPSULE PO SCH ×2 (08:13→19:54)
[2021-01-01] MEDS: POTASSIUM CHLORIDE 10 MEQ TABLET.ER. PO SCH (08:13)
[2021-01-01] MEDS: ATORVASTATIN CALCIUM 10 MG TABLET. PO SCH (08:13)
[2021-01-01] MEDS: ASPIRIN CHEWABLE 81 MG TABLET. PO SCH (08:13)
[2021-01-01] MEDS: LISINOPRIL 5 MG TABLET. PO SCH (08:15)
[2021-01-01] MEDS: SERTRALINE 50 MG TABLET. PO SCH (08:15)
[2021-01-01] MEDS: METOPROLOL SUCC 24HR ER 25 MG TAB.ER.24H. PO SCH (08:15)
[2021-01-01] MEDS: IPRATROPIUM BROMIDE 0.06% NASAL SPRAY 15ML BOTTLE. NS SCH ×2 (08:16→20:04)
[2021-01-01] MEDS: FUROSEMIDE 40 MG TABLET. PO SCH (08:16)
[2021-01-01] MEDS: BISACODYL 10 MG SUPP.RECT. PR SCH (09:00)
[2021-01-01] MEDS: POLYETHYLENE GLYCOL 3350 17 GM PACKET. PO SCH (09:00)
--- NOTE | 2021-01-01 10:26 | PDOC ---
PULMONARY PROGRESS NOTES DATE: 01/01/21 TIME: 10:24 Subjective on 02 4 lpm sob cough better home 02 4 lpm Vitals Vital Signs Date Time Temp Pulse Resp B/P (MAP) Pulse Ox O2 Delivery O2 Flow Rate FiO2 01/01/21 08:15 73 127/69 01/01/21 08:00 Nasal Cannula 5.0 01/01/21 07:47 94 01/01/21 07:00 97.5 20 97.5 ROS: No Nausea, No Chest Pain, No Abdominal Pain, No Increase Cough General: Alert, No acute distress HEENT: Other Lungs: Crackles Cardiovascular: S1, S2 Abdomen: Soft, Non-tender Neuro Exam: Alert Extremities: Other (Edema) Skin: Warm Labs Laboratory Tests Test 12/30/20 12:23 12/31/20 07:55 Prothrombin Time 17.9 SEC (11.7-14.0) 18.0 SEC (11.7-14.0) Prothromb Time International Ratio 1.5 (0.8-1.1) 1.5 (0.8-1.1) White Blood Count 5.9 x10^3/uL (4.0-11.0) Red Blood Count 2.96 x10^6/uL (4.30-5.70) Hemoglobin 6.5 g/dL (13.0-17.5) Hematocrit 21.5 % (39.0-53.0) Mean Corpuscular Volume 75 fL (79-100) Mean Corpuscular Hemoglobin 23 pg (25-35) Mean Corpuscular Hemoglobin Concent 30 g/dL (31-37) Red Cell Distribution Width 21.1 % (11.5-14.5) Platelet Count 162 x10^3/uL (140-400) Neutrophils (%) (Auto) 70 % (31-73) Lymphocytes (%) (Auto) 14 % (24-48) Monocytes (%) (Auto) 11 % (0-9) Eosinophils (%) (Auto) 3 % (0-3) Basophils (%) (Auto) 2 % (0-3) Neutrophils # (Auto) 4.1 x10^3/uL (1.8-7.7) Lymphocytes # (Auto) 0.8 x10^3/uL (1.0-4.8) Monocytes # (Auto) 0.6 x10^3/uL (0.0-1.1) Eosinophils # (Auto) 0.2 x10^3/uL (0.0-0.7) Basophils # (Auto) 0.1 x10^3/uL (0.0-0.2) Absolute Reticulocyte Count 0.071 x10^6/uL (0.020-0.120) Percent Reticulocyte Count 2.4 % (0.5-2.3) Immature Reticulocyte Fraction 0.48 (0.20-0.60) Sodium Level 141 mmol/L (136-145) Potassium Level 4.0 mmol/L (3.5-5.1) Chloride Level 106 mmol/L (98-107) Carbon Dioxide Level 24 mmol/L (21-32) Anion Gap 11 (6-14) Blood Urea Nitrogen 28 mg/dL (8-26) Creatinine 1.6 mg/dL (0.7-1.3) Estimated GFR (Cockcroft-Gault) 42.1 Glucose Level 89 mg/dL (70-99) Uric Acid 8.6 mg/dL (3.5-7.2) Calcium Level 7.6 mg/dL (8.5-10.1) Iron Level 19 ug/dL (65-175) Total Iron Binding Capacity 329 ug/dL (250-450) Iron Saturation 6 % (15-34) Ferritin 56 ng/mL (26-388) Vitamin B12 Level 804 pg/mL (247-911) Medications Active Scripts Medications Dose Route/Sig Max Daily Dose Days Date Category Sertraline Hcl 50 Mg Tablet 50 Mg PO DAILY 12/29/20 Reported Budesonide 0.5 Mg/2 Ml Ampul.neb 1 Vial NEB BID 12/29/20 Reported Tudorza Pressair (Aclidinium [place]) 400 Mcg Aer.pow.ba 1 Puff IH BID 12/29/20 Reported Ipratropium [place] 0.2 Mg/1 Ml Solution 1 Vial NEB QID 12/29/20 Reported Klor-Con 10 (Potassium Chloride) 10 Meq Tablet.er 1 Tab PO DAILY 30 12/29/20 Reported Lyrica (Pregabalin) 75 Mg Capsule 1 Cap PO BID 12/29/20 Reported Lisinopril 5 Mg Tablet 5 Mg PO DAILY 10/17/20 Rx Senna Plus Tablet (Sennosides/Docusate Sodium) 1 Each Tablet 2 Tab PO QHS 14 10/01/20 Rx Ipratropium [place] 15 Ml [place] 2 Sprays NS BID 07/08/20 Reported Metoprolol Succinate ( Xl ) (Metoprolol Succinate) 25 Mg Tab.er.24h 1 Tab PO DAILY 30 07/08/20 Reported Pantoprazole Sodium 40 Mg Tablet.dr 1 Tab PO DAILY 30 07/08/20 Reported Gabapentin (Gabapentin) 300 Mg Capsule 300 Mg PO DAILYWSUP 06/30/19 Reported Aspirin 81 Mg Tab.chew 81 Mg PO DAILY 06/30/19 Reported Furosemide 40 Mg Tablet 40 Mg PO DAILY MDD 1 10/19/18 Rx Lovastatin 40 Mg Tablet 1 Tab PO DAILY 12/14/14 Reported Impression . IMPRESSION: 1. Chronic respiratory failure, multifactorial secondary to severe chronic obstructive pulmonary disease, coronary artery disease, previous coronary artery bypass grafting and deconditioning. 2. Cardiomyopathy, status post coronary artery bypass grafting. 3. Chronic atrial fibrillation. 4. Recent diagnosis of colon cancer. According to Dr. Cullen, the patient is close to obstructing his colon and requires surgical intervention. 5. Ascites Plan . cont 02 titration start IS surgery plan for next week Continue oxygen supplementation Breathing treatments Home meds discussed w rn dr colindres had multiple discussions with the patient. The patient is aware that he may do poorly, requiring prolonged mechanical support and tracheotomy. The patient informed dr colindres that if he does undergo surgical intervention and he still requires mechanical support after 3 weeks out, that if several doctors on the case feel that his chances of meaningful recovery are poor, he wishes to be taken off mechanical support and allow natural . KANCHAN MÁRQUEZ MD Jan 01, 2021 10:26
--- NOTE | 2021-01-01 10:36 | PDOC ---
PROGRESS NOTES Date of Service DATE: 01/01/21 TIME: 10:35 Subjective Subjective without complaints Objective Objective Vital Signs Date Time Temp Pulse Resp B/P (MAP) Pulse Ox O2 Delivery O2 Flow Rate FiO2 01/01/21 08:15 73 127/69 01/01/21 08:00 Nasal Cannula 5.0 01/01/21 07:47 94 01/01/21 07:00 97.5 20 97.5 Intake and Output 01/01/21 07:00 Intake Total 1657 ml Output Total 600 ml Balance 1057 ml Intake Oral 1060 ml Blood Product IV Normal Saline Flush 597 ml Output Urine Total 600 ml Physical Exam Abdomen: Soft, No tenderness Heart: Regular rate Extremities: No clubbing, No cyanosis General: Alert Assessment Assessment Problems Medical Problems: (1) Abdominal pain Status: Acute Plan Plan of Care Surgery plans per Dr Cullen, will 01/03 Comment Review of Relevant I have reviewed the following items jay (where applicable) has been applied. Labs Laboratory Tests Test 12/30/20 12:23 12/31/20 07:55 Prothrombin Time 17.9 SEC (11.7-14.0) 18.0 SEC (11.7-14.0) Prothromb Time International Ratio 1.5 (0.8-1.1) 1.5 (0.8-1.1) White Blood Count 5.9 x10^3/uL (4.0-11.0) Red Blood Count 2.96 x10^6/uL (4.30-5.70) Hemoglobin 6.5 g/dL (13.0-17.5) Hematocrit 21.5 % (39.0-53.0) Mean Corpuscular Volume 75 fL (79-100) Mean Corpuscular Hemoglobin 23 pg (25-35) Mean Corpuscular Hemoglobin Concent 30 g/dL (31-37) Red Cell Distribution Width 21.1 % (11.5-14.5) Platelet Count 162 x10^3/uL (140-400) Neutrophils (%) (Auto) 70 % (31-73) Lymphocytes (%) (Auto) 14 % (24-48) Monocytes (%) (Auto) 11 % (0-9) Eosinophils (%) (Auto) 3 % (0-3) Basophils (%) (Auto) 2 % (0-3) Neutrophils # (Auto) 4.1 x10^3/uL (1.8-7.7) Lymphocytes # (Auto) 0.8 x10^3/uL (1.0-4.8) Monocytes # (Auto) 0.6 x10^3/uL (0.0-1.1) Eosinophils # (Auto) 0.2 x10^3/uL (0.0-0.7) Basophils # (Auto) 0.1 x10^3/uL (0.0-0.2) Absolute Reticulocyte Count 0.071 x10^6/uL (0.020-0.120) Percent Reticulocyte Count 2.4 % (0.5-2.3) Immature Reticulocyte Fraction 0.48 (0.20-0.60) Sodium Level 141 mmol/L (136-145) Potassium Level 4.0 mmol/L (3.5-5.1) Chloride Level 106 mmol/L (98-107) Carbon Dioxide Level 24 mmol/L (21-32) Anion Gap 11 (6-14) Blood Urea Nitrogen 28 mg/dL (8-26) Creatinine 1.6 mg/dL (0.7-1.3) Estimated GFR (Cockcroft-Gault) 42.1 Glucose Level 89 mg/dL (70-99) Uric Acid 8.6 mg/dL (3.5-7.2) Calcium Level 7.6 mg/dL (8.5-10.1) Iron Level 19 ug/dL (65-175) Total Iron Binding Capacity 329 ug/dL (250-450) Iron Saturation 6 % (15-34) Ferritin 56 ng/mL (26-388) Vitamin B12 Level 804 pg/mL (247-911) Microbiology 12/29/20 Blood Culture - Preliminary, Resulted NO GROWTH AFTER 2 DAYS Medications Current Medications Phytonadione (Vitamin K Ampule) 10 mg 1X ONCE SQ Last administered on 12/29/20at 12:57; Start 12/29/20 at 12:30; Stop 12/29/20 at 12:31; Status DC Piperacillin Sod/ Tazobactam Sod (Zosyn Per Pharmacy) 1 each PRN DAILY PRN MC SEE COMMENTS; Start 12/29/20 at 12:30; Stop 12/30/20 at 13:32; Status DC Piperacillin Sod/ Tazobactam Sod 3.375 gm/Sodium Chloride 50 ml @ 100 mls/hr ONCE ONCE IV Last administered on 12/29/20at 14:18; Start 12/29/20 at 13:00; Stop 12/29/20 at 13:29; Status DC Piperacillin Sod/ Tazobactam Sod 3.375 gm/Sodium Chloride 50 ml @ 100 mls/hr Q6HRS IV Last administered on 12/30/20at 12:01; Start 12/29/20 at 19:00; Stop 12/30/20 at 13:32; Status DC Aspirin (Aspirin Chewable) 81 mg DAILY PO Last administered on 01/01/21at 08:13; Start 12/30/20 at 12:30 Furosemide (Lasix) 40 mg DAILY PO Last administered on 01/01/21at 08:16; Start 12/30/20 at 12:30 Gabapentin (Neurontin) 300 mg DAILYWSUP PO Last administered on 12/31/20at 17:29; Start 12/30/20 at 17:00 Ipratropium [place] (Atrovent) 1 mg QID NEB ; Start 12/30/20 at 13:00; Stop 12/30/20 at 11:54; Status DC Ipratropium [place] (Atrovent Nasal) 2 spray BID NS Last administered on 01/01/21at 08:16; Start 12/30/20 at 21:00 Lisinopril (Prinivil) 5 mg DAILY PO Last administered on 01/01/21at 08:15; Start 12/30/20 at 12:30 Metoprolol Succinate (Toprol Xl) 25 mg DAILY PO Last administered on 01/01/21at 08:15; Start 12/30/20 at 12:30 Pantoprazole Sodium (Protonix) 40 mg DAILYAC PO Last administered on 12/31/20at 21:06; Start 12/30/20 at 12:30 Pregabalin (Lyrica) 75 mg BID PO Last administered on 01/01/21at 08:13; Start 12/30/20 at 21:00 Senna/Docusate Sodium (Senna Plus) 2 tab QHS PO Last administered on 12/31/20at 21:06; Start 12/30/20 at 21:00 Sertraline HCl (Zoloft) 50 mg DAILY PO Last administered on 01/01/21at 08:15; Start 12/30/20 at 12:30 Albuterol/ Ipratropium (Duoneb) 3 ml RTQID NEB Last administered on 01/01/21at 07:46; Start 12/30/20 at 12:00 Atorvastatin Calcium (Lipitor) 10 mg DAILY PO Last administered on 01/01/21at 08:13; Start 12/30/20 at 12:30 Potassium Chloride (Klor-Con) 10 meq DAILYWBKFT PO Last administered on 01/01/21at 08:13; Start 12/30/20 at 12:30 Fentanyl Citrate (Fentanyl 2ml Vial) 25 mcg PRN Q5MIN PRN IVP MILD PAIN 1-3; Start 12/31/20 at 06:00; Stop 01/01/21 at 05:59; Status DC Fentanyl Citrate (Fentanyl 2ml Vial) 50 mcg PRN Q5MIN PRN IVP MODERATE PAIN 4- 6; Start 12/31/20 at 06:00; Stop 01/01/21 at 05:59; Status DC Morphine Sulfate (Morphine Sulfate) 1 mg PRN Q10MIN PRN IVP SEVERE PAIN 7-10; Start 12/31/20 at 06:00; Stop 01/01/21 at 05:59; Status DC Ringer's Solution 1,000 ml @ 30 mls/hr Q24H IV ; Start 12/31/20 at 06:00; Stop 12/31/20 at 17:59; Status DC Hydromorphone HCl (Dilaudid) 0.5 mg PRN Q10MIN PRN IVP SEVERE PAIN 7-10, 2nd CHOICE; Start 12/31/20 at 06:00; Stop 01/01/21 at 05:59; Status DC Prochlorperazine Edisylate (Compazine) 5 mg PACU PRN PRN IVP NAUSEA, MRX1; Start 12/31/20 at 06:00; Stop 01/01/21 at 05:59; Status DC Fentanyl Citrate (Fentanyl 2ml Vial) 25 mcg PRN Q5MIN PRN IVP MILD PAIN 1-3; Start 12/31/20 at 06:00; Stop 01/01/21 at 05:59; Status UNV Fentanyl Citrate (Fentanyl 2ml Vial) 50 mcg PRN Q5MIN PRN IVP MODERATE PAIN 4- 6; Start 12/31/20 at 06:00; Stop 01/01/21 at 05:59; Status UNV Morphine Sulfate (Morphine Sulfate) 1 mg PRN Q10MIN PRN IVP SEVERE PAIN 7-10; Start 12/31/20 at 06:00; Stop 01/01/21 at 05:59; Status UNV [place]inger's Solution 1,000 ml @ 30 mls/hr Q24H IV ; Start 12/31/20 at 06:00; Stop 12/31/20 at 17:59; Status UNV Hydromorphone HCl (Dilaudid) 0.5 mg PRN Q10MIN PRN IVP SEVERE PAIN 7-10, 2nd CHOICE; Start 12/31/20 at 06:00; Stop 01/01/21 at 05:59; Status UNV Prochlorperazine Edisylate (Compazine) 5 mg PACU PRN PRN IVP NAUSEA, MRX1; Start 12/31/20 at 06:00; Stop 01/01/21 at 05:59; Status UNV Furosemide (Lasix) 40 mg 1X ONCE IVP Last administered on 12/30/20at 17:27; Start 12/30/20 at 17:00; Stop 12/30/20 at 17:01; Status DC Glycopyrrolate (Robinul) 1 mg STK-MED ONCE .ROUTE ; Start 12/31/20 at 08:23; Stop 12/31/20 at 08:23; Status DC Propofol (Diprivan) 200 mg STK-MED ONCE IV ; Start 12/31/20 at 08:23; Stop 12/31/20 at 08:23; Status DC Etomidate (Amidate) 20 mg STK-MED ONCE IV ; Start 12/31/20 at 08:23; Stop 12/31/20 at 08:24; Status DC Lidocaine HCl (Lidocaine Pf 2% Vial) 5 ml STK-MED ONCE .ROUTE ; Start 12/31/20 at 08:24; Stop 12/31/20 at 08:24; Status DC Phenylephrine HCl (PHENYLEPHRINE in 0.9% NACL PF) 1 mg STK-MED ONCE IV ; Start 12/31/20 at 08:24; Stop 12/31/20 at 08:24; Status DC Ephedrine Sulfate (ePHEDrine PF IN SALINE SYRINGE) 50 mg STK-MED ONCE IV ; Start 12/31/20 at 08:24; Stop 12/31/20 at 08:24; Status DC Succinylcholine Chloride (Anectine) 200 mg STK-MED ONCE .ROUTE ; Start 12/31/20 at 08:24; Stop 12/31/20 at 08:24; Status DC Rocuronium [place] (Zemuron) 50 mg STK-MED ONCE .ROUTE ; Start 12/31/20 at 08:24; Stop 12/31/20 at 08:25; Status DC Fentanyl Citrate (Fentanyl 2ml Vial) 100 mcg STK-MED ONCE .ROUTE ; Start 12/31/20 at 08:25; Stop 12/31/20 at 08:25; Status DC Phenylephrine HCl (Can-Synephrine Inj) 10 mg STK-MED ONCE .ROUTE ; Start 12/31/20 at 08:28; Stop 12/31/20 at 08:28; Status DC Bisacodyl (Dulcolax Supp) 10 mg DAILY CO ; Start 12/31/20 at 12:00 Polyethylene Glycol (miraLAX PACKET) 17 gm DAILY PO ; Start 12/31/20 at 12:00 Iron Sucrose 500 mg/Sodium Chloride 275 ml @ 78.571 mls/ hr 1X ONCE IV Last administered on 12/31/20at 16:06; Start 12/31/20 at 13:00; Stop 12/31/20 at 16:29; Status DC Active Scripts Active Lisinopril 5 Mg Tablet 5 Mg PO DAILY Senna Plus Tablet (Sennosides/Docusate Sodium) 1 Each Tablet 2 Tab PO QHS 14 Days Furosemide 40 Mg Tablet 40 Mg PO DAILY MDD 1 Reported Sertraline Hcl 50 Mg Tablet 50 Mg PO DAILY Budesonide 0.5 Mg/2 Ml Ampul.neb 1 Vial NEB BID Tudorza Pressair (Aclidinium [place]) 400 Mcg Aer.pow.ba 1 Puff IH BID Ipratropium [place] 0.2 Mg/1 Ml Solution 1 Vial NEB QID Klor-Con 10 (Potassium Chloride) 10 Meq Tablet.er 1 Tab PO DAILY 30 Days Lyrica (Pregabalin) 75 Mg Capsule 1 Cap PO BID Ipratropium [place] 15 Ml [place] 2 Sprays NS BID Metoprolol Succinate ( Xl ) (Metoprolol Succinate) 25 Mg Tab.er.24h 1 Tab PO DAILY 30 Days Pantoprazole Sodium 40 Mg Tablet.dr 1 Tab PO DAILY 30 Days Gabapentin (Gabapentin) 300 Mg Capsule 300 Mg PO DAILYWSUP Aspirin 81 Mg Tab.chew 81 Mg PO DAILY Lovastatin 40 Mg Tablet 1 Tab PO DAILY Vitals/I & O Vital Sign - Last 24 Hours 12/31/20 12/31/20 12/31/20 12/31/20 11:00 11:22 13:50 14:05 Temp 95.9 95.7 97.5 95.9 95.7 97.5 Pulse 70 69 70 Resp 18 18 18 B/P (MAP) 89/54 (66) 101/57 112/68 Pulse Ox 90 96 O2 Delivery Room Air Nasal Cannula O2 Flow Rate 5.0 12/31/20 12/31/20 12/31/20 12/31/20 14:20 14:35 15:00 15:00 Temp 96.7 95.6 96.5 96.7 96.7 95.6 96.5 96.7 Pulse 68 80 73 79 Resp 18 18 18 18 B/P (MAP) 102/56 100/57 96/56 (69) 98/53 Pulse Ox 93 O2 Delivery Room Air 12/31/20 12/31/20 12/31/20 12/31/20 15:30 16:04 16:33 19:00 Temp 97.6 96.7 97.1 97.6 96.7 97.1 Pulse 82 74 69 Resp 17 18 18 B/P (MAP) 109/68 108/68 100/50 (67) Pulse Ox 96 96 O2 Delivery Nasal Cannula Room Air O2 Flow Rate 5.0 12/31/20 12/31/20 12/31/20 01/01/21 20:05 20:36 23:00 01:20 Temp 97.2 97.4 97.2 97.4 Pulse 71 65 Resp 16 20 B/P (MAP) 93/49 (64) 100/48 Pulse Ox 99 97 O2 Delivery Nasal Cannula Nasal Cannula Room Air O2 Flow Rate 5.0 5.0 01/01/21 01/01/21 01/01/21 01/01/21 01:35 02:35 03:30 07:00 Temp 97.0 97.0 97.4 97.5 97.0 97.0 97.4 97.5 Pulse 72 73 76 70 Resp 19 19 18 20 B/P (MAP) 115/65 102/68 110/68 127/69 (88) Pulse Ox 95 O2 Delivery Room Air 01/01/21 01/01/21 01/01/21 01/01/21 07:47 08:00 08:15 08:15 Pulse 73 73 B/P (MAP) 127/69 127/69 Pulse Ox 94 O2 Delivery Nasal Cannula Nasal Cannula O2 Flow Rate 5.0 5.0 Intake and Output 12/31/20 12/31/20 01/01/21 15:00 23:00 07:00 Intake Total 447 ml 1090 ml 120 ml Output Total 600 ml Balance -153 ml 1090 ml 120 ml Justifications for Admission Other Justification Nutrition Consultation Dietary Evaluation: Recommendations by RD: Dietary education by RD, Protein supplementation Comments: REC Cardiac diet when appropriate REC Ensure TID for increased protein intake Expected Outcomes/Goals: Improved po intake PO intake >75% estimated nutritional needs Malnutrition Findings: Food and Nutrition Intake (Sev: <50% est energy req 5days Weight Status: Obese Fluid Accumulation (Non-Severe: Mild depletion SÁNCHEZ WINTERS MD Jan 01, 2021 10:36
--- NOTE | 2021-01-01 11:36 | PDOC ---
[facility] PROGRESS NOTE Date of Service DOS: DATE: 01/01/21 TIME: 11:30 Chief Complaint Chief Complaint Abd pain, fluid overload History of Present Illness History of Present Illness 01/01/21 Patient seen and examined, sitting up and alert Rodger says he has been having issues swallowing liquids, ordering bedside swallow. He did take a drink and have a coughing fit during our conversation, says this happens frequently and sometimes will cause him to pass out when it cuts off his oxygen supply Patient had no new questions or concerns about his surgery or prognosis DWRN Chart reviewed 12/31/2020 Patient seen and examined Discussed surgery date push back DWRN Chart reviewed 12/30/2020 Patient seen and examined Discussed CRC prognosis and he wanted a second opinion on the prognosis. Called Dr. Cullen who is willing to complete surgery if patient decides that is what he wants after second consult DWRN Chart reviewed Vitals/I&O Vitals/I&O: Vital Signs Date Time Temp Pulse Resp B/P (MAP) Pulse Ox O2 Delivery O2 Flow Rate FiO2 01/01/21 08:15 73 127/69 01/01/21 08:00 Nasal Cannula 5.0 01/01/21 07:47 94 01/01/21 07:00 97.5 20 97.5 I & O 12/31/20 12/31/20 01/01/21 15:00 23:00 07:00 Intake Total 447 ml 1090 ml 120 ml Output Total 600 ml Balance -153 ml 1090 ml 120 ml Physical Exam General: Alert, Oriented X3, Cooperative, No acute distress Heart: Regular rate Lungs: Crackles Abdomen: Soft, No tenderness Extremities: No clubbing, No cyanosis, Other (Mild edema) Skin: No rashes Review of Systems Review of Systems: Patient denied weakness, dizziness, and nausea Assessment and Plan Assessmemt and Plan Problems Medical Problems: (1) Abdominal pain Status: Acute Colon cancer CAD Arrhythmias Constipation COPD hyperlipidemia Shingles Coronary artery bypass surgery Defibrillator, Previous tobacco abuse. Plan Speech consulted for swallow study Surgery pushed to 01/04/21 Continue to trend hgb If BP remains normal, restart lisinopril and Metoprolol again Cont IV abx Cont clear liquid diet B/L SCD Cont home meds Cont cardiac monitoring cont trend labs Full code Comment Review of Relevant I have reviewed the following items jay (where applicable) has been applied. Medications: Current Medications Medications (Trade) Dose Ordered Sig/[place] Route PRN Reason Start Time Stop Time Status Last Admin Dose Admin Iron Sucrose 500 mg/Sodium Chloride 275 ml @ 78.571 mls/ hr 1X ONCE IV 12/31/20 13:00 12/31/20 16:29 DC 12/31/20 16:06 Justifications for Admission Other Justification BIRD RUSSELL III DO Jan 01, 2021 11:36
[2021-01-01] MEDS: GABAPENTIN 300 MG CAPSULE. PO SCH (17:10)
[2021-01-01] MEDS: SENNOSIDES/DOCUSATE 8.6/50MG TABLET. PO SCH (19:54)
[2021-01-02 03:27] VITALS: BP 97/65
[2021-01-02 04:31] LABS: BASO # 0.1 x10^3/uL (0.0-0.2); BASO % 1 % (0-3); EOS # 0.3 x10^3/uL (0.0-0.7); EOS % 4 % (0-3); HEMATOCRIT 25.1 % (39.0-53.0); HEMOGLOBIN 7.6 g/dL (13.0-17.5); LYMPH # 0.8 x10^3/uL (1.0-4.8); LYMPH % 11 % (24-48); MEAN CORPUSCULAR HEMOGLOBIN 23 pg (25-35); MEAN CORPUSCULAR HGB CONC 30 g/dL (31-37); MEAN CORPUSCULAR VOLUME 78 fL (79-100); MONO # 0.8 x10^3/uL (0.0-1.1); MONO % 12 % (0-9); NEUT # 4.9 x10^3/uL (1.8-7.7); NEUT % 72 % (31-73); PLATELET COUNT 130 x10^3/uL (140-400); RED BLOOD COUNT 3.23 x10^6/uL (4.30-5.70); WHITE BLOOD COUNT 6.9 x10^3/uL (4.0-11.0)
[2021-01-02 04:46] LABS: CALCIUM 7.6 mg/dL (8.5-10.1); CREATININE 1.2 mg/dL (0.7-1.3); GFR 58.7; POTASSIUM 3.7 mmol/L (3.5-5.1)
[2021-01-02 05:15] LABS: % BANDS 2 % (0-9); % BASOS 1 % (0-3); % EOS 5 % (0-5); % LYMPHS 13 % (24-48); % MONOS 3 % (0-10); % SEGS 76 % (35-66); ANISOCYTOSIS MOD; HYPOCHROMIA SLIGHT; NUCLEATED RBC 5; PLT ESTIMATE DECREASED (ADEQUATE); POIKILOCYTOSIS SLIGHT; POLYCHROMASIA SLIGHT
[2021-01-02 05:16] LABS: OVALOCYTES FEW
[2021-01-02 07:43] VITALS: BP 99/60
[2021-01-02] MEDS: IPRATRPIUM/ALBUTEROL 0.5/2.5MG 3 ML NEBU. NEB SCH ×4 (08:21→19:54)
[2021-01-02] MEDS: PREGABALIN 75 MG CAPSULE PO SCH ×2 (08:25→20:21)
[2021-01-02] MEDS: PANTOPRAZOLE 40 MG TABLET.DR. PO SCH (08:25)
[2021-01-02] MEDS: ASPIRIN CHEWABLE 81 MG TABLET. PO SCH (08:25)
[2021-01-02] MEDS: SERTRALINE 50 MG TABLET. PO SCH (08:26)
[2021-01-02] MEDS: ATORVASTATIN CALCIUM 10 MG TABLET. PO SCH (08:26)
[2021-01-02] MEDS: METOPROLOL SUCC 24HR ER 25 MG TAB.ER.24H. PO SCH ×2 (08:26→09:00)
[2021-01-02] MEDS: BISACODYL 10 MG SUPP.RECT. PR SCH (08:27)
[2021-01-02] MEDS: POTASSIUM CHLORIDE 10 MEQ TABLET.ER. PO SCH (08:27)
[2021-01-02] MEDS: IPRATROPIUM BROMIDE 0.06% NASAL SPRAY 15ML BOTTLE. NS SCH ×2 (08:27→20:21)
[2021-01-02] MEDS: POLYETHYLENE GLYCOL 3350 17 GM PACKET. PO SCH (08:29)
[2021-01-02] MEDS: FUROSEMIDE 40 MG TABLET. PO SCH (09:00)
[2021-01-02] MEDS: LISINOPRIL 5 MG TABLET. PO SCH (09:00)
--- NOTE | 2021-01-02 09:48 | PDOC ---
PULMONARY PROGRESS NOTES DATE: 01/02/21 TIME: 09:47 Subjective on 02 6 lpm denies sob cough more than usual home 02 4 lpm Vitals Vital Signs Date Time Temp Pulse Resp B/P (MAP) Pulse Ox O2 Delivery O2 Flow Rate FiO2 01/02/21 08:23 95 Nasal Cannula 5.0 01/02/21 07:43 97.6 71 22 99/60 (73) 97.6 ROS: No Nausea, No Chest Pain, No Abdominal Pain, No Increase Cough General: Alert, No acute distress HEENT: Other Lungs: Crackles Cardiovascular: S1, S2 Abdomen: Soft, Non-tender Neuro Exam: Alert Extremities: Other (Edema) Skin: Warm Labs Laboratory Tests Test 01/02/21 03:30 White Blood Count 6.9 x10^3/uL (4.0-11.0) Red Blood Count 3.23 x10^6/uL (4.30-5.70) Hemoglobin 7.6 g/dL (13.0-17.5) Hematocrit 25.1 % (39.0-53.0) Mean Corpuscular Volume 78 fL (79-100) Mean Corpuscular Hemoglobin 23 pg (25-35) Mean Corpuscular Hemoglobin Concent 30 g/dL (31-37) Red Cell Distribution Width 22.0 % (11.5-14.5) Platelet Count 130 x10^3/uL (140-400) Neutrophils (%) (Auto) 72 % (31-73) Lymphocytes (%) (Auto) 11 % (24-48) Monocytes (%) (Auto) 12 % (0-9) Eosinophils (%) (Auto) 4 % (0-3) Basophils (%) (Auto) 1 % (0-3) Neutrophils # (Auto) 4.9 x10^3/uL (1.8-7.7) Lymphocytes # (Auto) 0.8 x10^3/uL (1.0-4.8) Monocytes # (Auto) 0.8 x10^3/uL (0.0-1.1) Eosinophils # (Auto) 0.3 x10^3/uL (0.0-0.7) Basophils # (Auto) 0.1 x10^3/uL (0.0-0.2) Segmented Neutrophils % 76 % (35-66) Band Neutrophils % 2 % (0-9) Lymphocytes % 13 % (24-48) Monocytes % 3 % (0-10) Eosinophils % 5 % (0-5) Basophils % 1 % (0-3) Nucleated Red Blood Cells 5 Platelet Estimate Decreased (ADEQUATE) Polychromasia Slight Hypochromasia Slight Poikilocytosis Slight Anisocytosis Mod Ovalocytes Few Sodium Level 137 mmol/L (136-145) Potassium Level 3.7 mmol/L (3.5-5.1) Chloride Level 105 mmol/L (98-107) Carbon Dioxide Level 26 mmol/L (21-32) Anion Gap 6 (6-14) Blood Urea Nitrogen 19 mg/dL (8-26) Creatinine 1.2 mg/dL (0.7-1.3) Estimated GFR (Cockcroft-Gault) 58.7 Glucose Level 101 mg/dL (70-99) Calcium Level 7.6 mg/dL (8.5-10.1) Laboratory Tests Test 01/02/21 03:30 White Blood Count 6.9 x10^3/uL (4.0-11.0) Red Blood Count 3.23 x10^6/uL (4.30-5.70) Hemoglobin 7.6 g/dL (13.0-17.5) Hematocrit 25.1 % (39.0-53.0) Mean Corpuscular Volume 78 fL (79-100) Mean Corpuscular Hemoglobin 23 pg (25-35) Mean Corpuscular Hemoglobin Concent 30 g/dL (31-37) Red Cell Distribution Width 22.0 % (11.5-14.5) Platelet Count 130 x10^3/uL (140-400) Neutrophils (%) (Auto) 72 % (31-73) Lymphocytes (%) (Auto) 11 % (24-48) Monocytes (%) (Auto) 12 % (0-9) Eosinophils (%) (Auto) 4 % (0-3) Basophils (%) (Auto) 1 % (0-3) Neutrophils # (Auto) 4.9 x10^3/uL (1.8-7.7) Lymphocytes # (Auto) 0.8 x10^3/uL (1.0-4.8) Monocytes # (Auto) 0.8 x10^3/uL (0.0-1.1) Eosinophils # (Auto) 0.3 x10^3/uL (0.0-0.7) Basophils # (Auto) 0.1 x10^3/uL (0.0-0.2) Segmented Neutrophils % 76 % (35-66) Band Neutrophils % 2 % (0-9) Lymphocytes % 13 % (24-48) Monocytes % 3 % (0-10) Eosinophils % 5 % (0-5) Basophils % 1 % (0-3) Nucleated Red Blood Cells 5 Platelet Estimate Decreased (ADEQUATE) Polychromasia Slight Hypochromasia Slight Poikilocytosis Slight Anisocytosis Mod Ovalocytes Few Sodium Level 137 mmol/L (136-145) Potassium Level 3.7 mmol/L (3.5-5.1) Chloride Level 105 mmol/L (98-107) Carbon Dioxide Level 26 mmol/L (21-32) Anion Gap 6 (6-14) Blood Urea Nitrogen 19 mg/dL (8-26) Creatinine 1.2 mg/dL (0.7-1.3) Estimated GFR (Cockcroft-Gault) 58.7 Glucose Level 101 mg/dL (70-99) Calcium Level 7.6 mg/dL (8.5-10.1) Medications Active Scripts Medications Dose Route/Sig Max Daily Dose Days Date Category Sertraline Hcl 50 Mg Tablet 50 Mg PO DAILY 12/29/20 Reported Budesonide 0.5 Mg/2 Ml Ampul.neb 1 Vial NEB BID 12/29/20 Reported Tudorza Pressair (Aclidinium [place]) 400 Mcg Aer.pow.ba 1 Puff IH BID 12/29/20 Reported Ipratropium [place] 0.2 Mg/1 Ml Solution 1 Vial NEB QID 12/29/20 Reported Klor-Con 10 (Potassium Chloride) 10 Meq Tablet.er 1 Tab PO DAILY 30 12/29/20 Reported Lyrica (Pregabalin) 75 Mg Capsule 1 Cap PO BID 12/29/20 Reported Lisinopril 5 Mg Tablet 5 Mg PO DAILY 10/17/20 Rx Senna Plus Tablet (Sennosides/Docusate Sodium) 1 Each Tablet 2 Tab PO QHS 14 10/01/20 Rx Ipratropium [place] 15 Ml [place] 2 Sprays NS BID 07/08/20 Reported Metoprolol Succinate ( Xl ) (Metoprolol Succinate) 25 Mg Tab.er.24h 1 Tab PO DAILY 30 07/08/20 Reported Pantoprazole Sodium 40 Mg Tablet.dr 1 Tab PO DAILY 30 07/08/20 Reported Gabapentin (Gabapentin) 300 Mg Capsule 300 Mg PO DAILYWSUP 06/30/19 Reported Aspirin 81 Mg Tab.chew 81 Mg PO DAILY 06/30/19 Reported Furosemide 40 Mg Tablet 40 Mg PO DAILY MDD 1 10/19/18 Rx Lovastatin 40 Mg Tablet 1 Tab PO DAILY 12/14/14 Reported Impression . IMPRESSION: 1. Chronic respiratory failure, multifactorial secondary to severe chronic obstructive pulmonary disease, coronary artery disease, previous coronary artery bypass grafting and deconditioning. 2. Cardiomyopathy, status post coronary artery bypass grafting. 3. Chronic atrial fibrillation. 4. Recent diagnosis of colon cancer. According to Dr. Cullen, the patient is close to obstructing his colon and requires surgical intervention. 5. Ascites Plan . cont 02 titration IS, instructed how to use the importance of use discussed surgery plan for next week Continue oxygen BD add ics Breathing treatments Home meds discussed w rn dr colindres had multiple discussions with the patient. The patient is aware that he may do poorly, requiring prolonged mechanical support and tracheotomy. The patient informed dr colindres that if he does undergo surgical intervention and he still requires mechanical support after 3 weeks out, that if several doctors on the case feel that his chances of meaningful recovery are poor, he wishes to be taken off mechanical support and allow natural . KANCHAN MÁRQUEZ MD Jan 02, 2021 09:48
--- NOTE | 2021-01-02 10:57 | PDOC ---
[facility] PROGRESS NOTE Date of Service DOS: DATE: 01/02/21 TIME: 10:55 Chief Complaint Chief Complaint Abd pain, fluid overload History of Present Illness History of Present Illness 01/02/2021 Patient seen and examined, sitting up and talkative He has no new complaints DWRN Chart reviewed 01/01/21 Patient seen and examined, sitting up and alert Rodger says he has been having issues swallowing liquids, ordering bedside swallow. He did take a drink and have a coughing fit during our conversation, says this happens frequently and sometimes will cause him to pass out when it cuts off his oxygen supply Patient had no new questions or concerns about his surgery or prognosis DWRN Chart reviewed 12/31/2020 Patient seen and examined Discussed surgery date push back DWRN Chart reviewed 12/30/2020 Patient seen and examined Discussed CRC prognosis and he wanted a second opinion on the prognosis. Called Dr. Cullen who is willing to complete surgery if patient decides that is what he wants after second consult DWRN Chart reviewed Vitals/I&O Vitals/I&O: Vital Signs Date Time Temp Pulse Resp B/P (MAP) Pulse Ox O2 Delivery O2 Flow Rate FiO2 01/02/21 08:23 95 Nasal Cannula 5.0 01/02/21 07:43 97.6 71 22 99/60 (73) 97.6 I & O 01/01/21 01/01/21 01/02/21 15:00 23:00 07:00 Intake Total 650 ml 160 ml Output Total 0 ml Balance 650 ml 160 ml Physical Exam General: Alert, Oriented X3, Cooperative, No acute distress Heart: Regular rate Lungs: Crackles Abdomen: Soft, No tenderness Extremities: No clubbing, No cyanosis, Other (Mild edema) Skin: No rashes, Other (Bruising on arms) Labs Labs: Laboratory Tests Test 01/02/21 03:30 White Blood Count 6.9 x10^3/uL (4.0-11.0) Red Blood Count 3.23 x10^6/uL (4.30-5.70) Hemoglobin 7.6 g/dL (13.0-17.5) Hematocrit 25.1 % (39.0-53.0) Mean Corpuscular Volume 78 fL (79-100) Mean Corpuscular Hemoglobin 23 pg (25-35) Mean Corpuscular Hemoglobin Concent 30 g/dL (31-37) Red Cell Distribution Width 22.0 % (11.5-14.5) Platelet Count 130 x10^3/uL (140-400) Neutrophils (%) (Auto) 72 % (31-73) Lymphocytes (%) (Auto) 11 % (24-48) Monocytes (%) (Auto) 12 % (0-9) Eosinophils (%) (Auto) 4 % (0-3) Basophils (%) (Auto) 1 % (0-3) Neutrophils # (Auto) 4.9 x10^3/uL (1.8-7.7) Lymphocytes # (Auto) 0.8 x10^3/uL (1.0-4.8) Monocytes # (Auto) 0.8 x10^3/uL (0.0-1.1) Eosinophils # (Auto) 0.3 x10^3/uL (0.0-0.7) Basophils # (Auto) 0.1 x10^3/uL (0.0-0.2) Segmented Neutrophils % 76 % (35-66) Band Neutrophils % 2 % (0-9) Lymphocytes % 13 % (24-48) Monocytes % 3 % (0-10) Eosinophils % 5 % (0-5) Basophils % 1 % (0-3) Nucleated Red Blood Cells 5 Platelet Estimate Decreased (ADEQUATE) Polychromasia Slight Hypochromasia Slight Poikilocytosis Slight Anisocytosis Mod Ovalocytes Few Sodium Level 137 mmol/L (136-145) Potassium Level 3.7 mmol/L (3.5-5.1) Chloride Level 105 mmol/L (98-107) Carbon Dioxide Level 26 mmol/L (21-32) Anion Gap 6 (6-14) Blood Urea Nitrogen 19 mg/dL (8-26) Creatinine 1.2 mg/dL (0.7-1.3) Estimated GFR (Cockcroft-Gault) 58.7 Glucose Level 101 mg/dL (70-99) Calcium Level 7.6 mg/dL (8.5-10.1) Review of Systems Review of Systems: Patient denied weakness, nausea, and headache Assessment and Plan Assessmemt and Plan Problems Medical Problems: (1) Abdominal pain Status: Acute Colon cancer CAD Arrhythmias Constipation COPD hyperlipidemia Shingles Coronary artery bypass surgery Defibrillator, Previous tobacco abuse. Plan Surgery 3/2/21 Speech consulted for swallow study Continue to trend hgb Cont IV abx Cont clear liquid diet B/L SCD Cont home meds Cont cardiac monitoring cont trend labs Full code Comment Review of Relevant I have reviewed the following items jay (where applicable) has been applied. Justifications for Admission Other Justification BIRD RUSSELL III DO Jan 02, 2021 10:57
[2021-01-02 11:04] VITALS: BP 109/60
[2021-01-02 15:44] VITALS: BP 114/60
--- NOTE | 2021-01-02 16:13 | RAD ---
EXAM: Left upper extremity venous Doppler. HISTORY: Left lower extremity pain/swelling. COMPARISON: None. FINDINGS: Grayscale and Doppler analysis of the left upper extremity deep venous system was performed with graded compression and augmentation. The internal jugular, subclavian, axillary, brachial, basi lic, radial and ulnar veins were assessed. There is no evidence of deep venous thrombosis. However, there is occlusive thrombus in the left ceph alic vein in the upper arm. IMPRESSION: 1. No evidence of deep venous thrombosis. 2. Occlusive thrombus in the superficial left upper extremity venous system (cephalic vein). Preliminary report communicated by the technologist to the nurse shortly after study completion. Electronically signed by: Dolores Osei MD (01/02/2021 4:10 PM) [facility] [place]
[2021-01-02] MEDS: GABAPENTIN 300 MG CAPSULE. PO SCH (17:00)
[2021-01-02 19:00] VITALS: BP 108/60
[2021-01-02] MEDS: BUDESONIDE 0.5 MG/2 ML NEBU. NEB SCH (20:00)
[2021-01-02] MEDS: SENNOSIDES/DOCUSATE 8.6/50MG TABLET. PO SCH (20:21)
[2021-01-02] MEDS: OXYMETAZOLINE 0.05% NASAL SPRAY 30ML BOTTLE. NS PRN (22:05)
[2021-01-02] MEDS: TEMAZEPAM 15 MG CAPSULE PO PRN (22:15)
[2021-01-02 23:33] VITALS: BP 123/63
[2021-01-03 03:00] VITALS: BP 117/70
[2021-01-03 07:00] VITALS: BP 77/45
[2021-01-03] MEDS: BUDESONIDE 0.5 MG/2 ML NEBU. NEB SCH ×2 (07:06→20:30)
[2021-01-03] MEDS: IPRATRPIUM/ALBUTEROL 0.5/2.5MG 3 ML NEBU. NEB SCH ×4 (07:06→20:30)
--- NOTE | 2021-01-03 08:42 | PDOC ---
Provider Note Date of Service: DATE: 01/03/21 TIME: 08:40 Provider Note (please see full dictation) 75 yo male with colon cancer developed left arm swelling after an IV was in his left distal forearm. US showed no evidence of deep venous thrombosis. He had cephalic vein thrombus. Would recommend warm compresses to area of swelling. He does not need therapeutic anticoagulation. Would continue with pharmaco DVT prophylaxis, however. Justifications for Admission Other Justification ISAIAH BENOIT MD Jan 03, 2021 08:42
--- NOTE | 2021-01-03 08:45 | PDOC ---
PULMONARY PROGRESS NOTES DATE: 01/03/21 TIME: 08:45 Subjective Patient not short of air. Currently on 4 L of oxygen supplementation. Vitals Vital Signs Date Time Temp Pulse Resp B/P (MAP) Pulse Ox O2 Delivery O2 Flow Rate FiO2 01/03/21 07:07 97 Nasal Cannula 5.0 01/03/21 07:00 95.6 70 13 77/45 (56) 95.6 ROS: No Nausea, No Chest Pain, No Abdominal Pain, No Increase Cough General: Alert, No acute distress HEENT: Other Lungs: Crackles Cardiovascular: S1, S2 Abdomen: Soft, Non-tender Neuro Exam: Alert Extremities: Other (Edema) Skin: Warm Labs Laboratory Tests Test 01/02/21 03:30 White Blood Count 6.9 x10^3/uL (4.0-11.0) Red Blood Count 3.23 x10^6/uL (4.30-5.70) Hemoglobin 7.6 g/dL (13.0-17.5) Hematocrit 25.1 % (39.0-53.0) Mean Corpuscular Volume 78 fL (79-100) Mean Corpuscular Hemoglobin 23 pg (25-35) Mean Corpuscular Hemoglobin Concent 30 g/dL (31-37) Red Cell Distribution Width 22.0 % (11.5-14.5) Platelet Count 130 x10^3/uL (140-400) Neutrophils (%) (Auto) 72 % (31-73) Lymphocytes (%) (Auto) 11 % (24-48) Monocytes (%) (Auto) 12 % (0-9) Eosinophils (%) (Auto) 4 % (0-3) Basophils (%) (Auto) 1 % (0-3) Neutrophils # (Auto) 4.9 x10^3/uL (1.8-7.7) Lymphocytes # (Auto) 0.8 x10^3/uL (1.0-4.8) Monocytes # (Auto) 0.8 x10^3/uL (0.0-1.1) Eosinophils # (Auto) 0.3 x10^3/uL (0.0-0.7) Basophils # (Auto) 0.1 x10^3/uL (0.0-0.2) Segmented Neutrophils % 76 % (35-66) Band Neutrophils % 2 % (0-9) Lymphocytes % 13 % (24-48) Monocytes % 3 % (0-10) Eosinophils % 5 % (0-5) Basophils % 1 % (0-3) Nucleated Red Blood Cells 5 Platelet Estimate Decreased (ADEQUATE) Polychromasia Slight Hypochromasia Slight Poikilocytosis Slight Anisocytosis Mod Ovalocytes Few Sodium Level 137 mmol/L (136-145) Potassium Level 3.7 mmol/L (3.5-5.1) Chloride Level 105 mmol/L (98-107) Carbon Dioxide Level 26 mmol/L (21-32) Anion Gap 6 (6-14) Blood Urea Nitrogen 19 mg/dL (8-26) Creatinine 1.2 mg/dL (0.7-1.3) Estimated GFR (Cockcroft-Gault) 58.7 Glucose Level 101 mg/dL (70-99) Calcium Level 7.6 mg/dL (8.5-10.1) Medications Active Scripts Medications Dose Route/Sig Max Daily Dose Days Date Category Sertraline Hcl 50 Mg Tablet 50 Mg PO DAILY 12/29/20 Reported Budesonide 0.5 Mg/2 Ml Ampul.neb 1 Vial NEB BID 12/29/20 Reported Tudorza Pressair (Aclidinium Cando) 400 Mcg Aer.pow.ba 1 Puff IH BID 12/29/20 Reported Ipratropium Cando 0.2 Mg/1 Ml Solution 1 Vial NEB QID 12/29/20 Reported Klor-Con 10 (Potassium Chloride) 10 Meq Tablet.er 1 Tab PO DAILY 30 12/29/20 Reported Lyrica (Pregabalin) 75 Mg Capsule 1 Cap PO BID 12/29/20 Reported Lisinopril 5 Mg Tablet 5 Mg PO DAILY 10/17/20 Rx Senna Plus Tablet (Sennosides/Docusate Sodium) 1 Each Tablet 2 Tab PO QHS 14 10/01/20 Rx Ipratropium Cando 15 Ml Carmichaels 2 Sprays NS BID 07/08/20 Reported Metoprolol Succinate ( Xl ) (Metoprolol Succinate) 25 Mg Tab.er.24h 1 Tab PO DAILY 30 07/08/20 Reported Pantoprazole Sodium 40 Mg Tablet.dr 1 Tab PO DAILY 30 07/08/20 Reported Gabapentin (Gabapentin) 300 Mg Capsule 300 Mg PO DAILYWSUP 06/30/19 Reported Aspirin 81 Mg Tab.chew 81 Mg PO DAILY 06/30/19 Reported Furosemide 40 Mg Tablet 40 Mg PO DAILY MDD 1 10/19/18 Rx Lovastatin 40 Mg Tablet 1 Tab PO DAILY 12/14/14 Reported Impression . IMPRESSION: 1. Chronic respiratory failure, multifactorial secondary to severe chronic obstructive pulmonary disease, coronary artery disease, previous coronary artery bypass grafting and deconditioning. 2. Cardiomyopathy, status post coronary artery bypass grafting. 3. Chronic atrial fibrillation. 4. Recent diagnosis of colon cancer. According to Dr. Cullen, the patient is close to obstructing his colon and requires surgical intervention. 5. Ascites 6. Cephalic vein thrombosis Plan . Respiratory status is compensated, patient on scheduled to undergo surgery tomorrow Continue oxygen supplementation Incentive spirometry Bronchodilators I had multiple discussions with the patient. The patient is aware that he may do poorly, requiring prolonged mechanical support and tracheotomy. The patient informed me that if he does undergo surgical intervention and he still requires mechanical support after 3 weeks out, that if several doctors on the case feel that his chances of meaningful recovery are poor, he wishes to be taken off mechanical support and allow natural . RADAMES MORALES MD Jan 03, 2021 08:45
[2021-01-03] MEDS: METOPROLOL SUCC 24HR ER 25 MG TAB.ER.24H. PO SCH (09:00)
[2021-01-03] MEDS: IPRATROPIUM BROMIDE 0.06% NASAL SPRAY 15ML BOTTLE. NS SCH ×2 (09:00→20:49)
[2021-01-03] MEDS: LISINOPRIL 5 MG TABLET. PO SCH (09:00)
[2021-01-03] MEDS: POLYETHYLENE GLYCOL 3350 17 GM PACKET. PO SCH (09:35)
[2021-01-03] MEDS: SERTRALINE 50 MG TABLET. PO SCH (09:36)
[2021-01-03] MEDS: OXYMETAZOLINE 0.05% NASAL SPRAY 30ML BOTTLE. NS PRN (09:36)
[2021-01-03] MEDS: ATORVASTATIN CALCIUM 10 MG TABLET. PO SCH (09:36)
[2021-01-03] MEDS: POTASSIUM CHLORIDE 10 MEQ TABLET.ER. PO SCH (09:37)
[2021-01-03] MEDS: ASPIRIN CHEWABLE 81 MG TABLET. PO SCH (09:37)
[2021-01-03] MEDS: GABAPENTIN 300 MG CAPSULE. PO SCH (09:43)
[2021-01-03] MEDS: PREGABALIN 75 MG CAPSULE PO SCH ×2 (09:46→21:00)
[2021-01-03] MEDS: PANTOPRAZOLE 40 MG TABLET.DR. PO SCH (09:46)
[2021-01-03] MEDS: BISACODYL 10 MG SUPP.RECT. PR SCH (09:47)
--- NOTE | 2021-01-03 09:53 | CONS ---
DATE OF CONSULTATION: 01/03/2021 CHIEF COMPLAINT: Left arm swelling. HISTORY OF PRESENT ILLNESS: The patient is a 75-year-old male who presents with abdominal discomfort and distention. He was evaluated in October and noted to have a colon mass that was biopsied as cancer. He now presents with worsening abdominal discomfort as well as some new bruising. He has had an IV in his left distal forearm that was recently removed. He developed swelling in the left arm after IV placement. I was asked to evaluate him for some venous thrombus identified on ultrasound. A left arm ultrasound showed no evidence of deep venous thrombosis, but there was cephalic vein thrombus. He notes that the swelling has improved over the last 24 hours. He notes some mild discomfort in the area of previous IV access. PAST MEDICAL HISTORY: 1. Colon cancer. 2. Coronary artery disease. 3. Cardiac dysrhythmia with pacemaker implant. 4. Chronic obstructive pulmonary disease. 5. Hyperlipidemia. PAST SURGICAL HISTORY: 1. Coronary artery bypass surgery. 2. Left chest wall pacemaker and subsequent generator change. ALLERGIES: No known drug allergies. FAMILY HISTORY: Significant for diabetes. CURRENT MEDICATIONS: Atorvastatin 10 mg every day, Protonix 40 mg every day, metoprolol 25 mg b.i.d., lisinopril 5 mg every day, Lasix 40 mg, aspirin 81 mg, DuoNeb MDI, Lyrica 75 mg b.i.d. SOCIAL HISTORY: Remote history of smoking, but none for over 20 years. He notes very occasional alcohol use. He is and lives with his . REVIEW OF SYSTEMS: No recent fevers, chills, chest pain or shortness of breath. He had worsening abdominal distention as noted above. No nausea, vomiting, hematochezia or melena. He has had some intermittent diarrhea and constipation. No unilateral weakness/numbness, vision loss, speech changes or other lateralizing TIA or stroke type symptoms. No previous history of extremity swelling except as detailed above. Other 14-point review of system was unremarkable. PHYSICAL EXAMINATION: GENERAL: This is a chronically ill-appearing male, in no acute distress. VITAL SIGNS: Temperature 97.2, pulse 73, blood pressure 123/63, respirations 16. NECK: Supple, no lymphadenopathy. CARDIOVASCULAR: Regular rhythm. He has a defibrillator or pacemaker generator in the left chest wall. He has a healed median sternotomy incision scar. PULMONARY: Nonlabored respirations. ABDOMEN: Soft. No focal areas of tenderness. He has mild distention. EXTREMITIES: He has moderate swelling in the left forearm. There is an area of previous vena punctures around his left wrist where he states his previous IV was located. No significant erythema or fluctuance at this time. Minimal right arm swelling. He has mild swelling in both legs. NEUROLOGIC: He is awake, alert, answering questions appropriately. No focal neurologic deficits. LABORATORY DATA: Significant for white blood cell 6.9, hemoglobin 7.6, platelet count of 130. INR 1.5. Sodium 137, potassium 3.7, BUN 19, creatinine 1.2, glucose 101. Ultrasound as above. IMPRESSION: 1. Left cephalic vein thrombus, likely related to previous IV access. 2. Colon cancer. 3. Anemia, likely of chronic blood loss. 4. Coronary artery disease. 5. Chronic obstructive pulmonary disease. 6. Cardiac dysrhythmia with pacemaker/defibrillator in place. RECOMMENDATIONS: 1. He does not need systemic anticoagulation, but would continue pharmacologic DVT prophylaxis. 2. Warm compresses to the area of left arm swelling. 3. May benefit from some gentle compression to minimize left arm swelling. Please call if other vascular concerns arise in the future. We will sign off for now. ISAIAH BENOIT MD DR: DAVE/kieran JOB#: [id number] / [id number] BIRD [place] SHAWN MD Lowry, Steven MD
[2021-01-03 11:00] VITALS: BP 118/59
--- NOTE | 2021-01-03 12:09 | PDOC ---
PROGRESS NOTES Date of Service: DATE: 01/03/21 TIME: 12:05 Chief Complaint Chief Complaint acute Abd pain, fluid overload colon cancer, plan resection 3.2, iron deficiency anemia, obese, BMI 32 weakness, debility depression, insomnia neuropathy History of Present Illness History of Present Illness 01/03 he had many questions about the time for surg tomorrow and the timeline for when he may discharge after, he was dismayed that I told him probably at least a week. I encouraged PO intake today, will need PT and OT ongoing, he has marked weakness other chart reviewed 01/02/2021 Patient seen and examined, sitting up and talkative He has no new complaints DWRN Chart reviewed 01/01/21 Patient seen and examined, sitting up and alert Rodger says he has been having issues swallowing liquids, ordering bedside swallow. He did take a drink and have a coughing fit during our conversation, says this happens frequently and sometimes will cause him to pass out when it cuts off his oxygen supply Patient had no new questions or concerns about his surgery or prognosis DWRN Chart reviewed 12/31/2020 Patient seen and examined Discussed surgery date push back DWRN Chart reviewed 12/30/2020 Patient seen and examined Discussed CRC prognosis and he wanted a second opinion on the prognosis. Called Dr. Cullen who is willing to complete surgery if patient decides that is what he wants after second consult DWRN Chart reviewed Vitals Vitals Vital Signs Date Time Temp Pulse Resp B/P (MAP) Pulse Ox O2 Delivery O2 Flow Rate FiO2 01/03/21 11:01 97 Nasal Cannula 5.0 01/03/21 11:00 96.3 71 21 118/59 (78) 96.3 Physical Exam General: Alert, Oriented X3, Cooperative, No acute distress Heart: Regular rate Lungs: Crackles Abdomen: Soft, No tenderness Extremities: No clubbing, No cyanosis, Other (Mild edema) Skin: No rashes, Other (Bruising on arms) Assessment and Plan Assessmemt and Plan Problems Medical Problems: (1) Abdominal pain Status: Acute Comment Review of Relevant I have reviewed the following items jay (where applicable) has been applied. Labs Laboratory Tests Test 01/02/21 03:30 White Blood Count 6.9 x10^3/uL (4.0-11.0) Red Blood Count 3.23 x10^6/uL (4.30-5.70) Hemoglobin 7.6 g/dL (13.0-17.5) Hematocrit 25.1 % (39.0-53.0) Mean Corpuscular Volume 78 fL (79-100) Mean Corpuscular Hemoglobin 23 pg (25-35) Mean Corpuscular Hemoglobin Concent 30 g/dL (31-37) Red Cell Distribution Width 22.0 % (11.5-14.5) Platelet Count 130 x10^3/uL (140-400) Neutrophils (%) (Auto) 72 % (31-73) Lymphocytes (%) (Auto) 11 % (24-48) Monocytes (%) (Auto) 12 % (0-9) Eosinophils (%) (Auto) 4 % (0-3) Basophils (%) (Auto) 1 % (0-3) Neutrophils # (Auto) 4.9 x10^3/uL (1.8-7.7) Lymphocytes # (Auto) 0.8 x10^3/uL (1.0-4.8) Monocytes # (Auto) 0.8 x10^3/uL (0.0-1.1) Eosinophils # (Auto) 0.3 x10^3/uL (0.0-0.7) Basophils # (Auto) 0.1 x10^3/uL (0.0-0.2) Segmented Neutrophils % 76 % (35-66) Band Neutrophils % 2 % (0-9) Lymphocytes % 13 % (24-48) Monocytes % 3 % (0-10) Eosinophils % 5 % (0-5) Basophils % 1 % (0-3) Nucleated Red Blood Cells 5 Platelet Estimate Decreased (ADEQUATE) Polychromasia Slight Hypochromasia Slight Poikilocytosis Slight Anisocytosis Mod Ovalocytes Few Sodium Level 137 mmol/L (136-145) Potassium Level 3.7 mmol/L (3.5-5.1) Chloride Level 105 mmol/L (98-107) Carbon Dioxide Level 26 mmol/L (21-32) Anion Gap 6 (6-14) Blood Urea Nitrogen 19 mg/dL (8-26) Creatinine 1.2 mg/dL (0.7-1.3) Estimated GFR (Cockcroft-Gault) 58.7 Glucose Level 101 mg/dL (70-99) Calcium Level 7.6 mg/dL (8.5-10.1) Microbiology 12/29/20 Blood Culture - Final, Complete NO GROWTH AFTER 5 DAYS Medications Current Medications Phytonadione (Vitamin K Ampule) 10 mg 1X ONCE SQ Last administered on 1at 12:57; Start 12/29/20 at 12:30; Stop 12/29/20 at 12:31; Status DC Piperacillin Sod/ Tazobactam Sod (Zosyn Per Pharmacy) 1 each PRN DAILY PRN MC SEE COMMENTS; Start 12/29/20 at 12:30; Stop 12/30/20 at 13:32; Status DC Piperacillin Sod/ Tazobactam Sod 3.375 gm/Sodium Chloride 50 ml @ 100 mls/hr ONCE ONCE IV Last administered on 12/29/20at 14:18; Start 12/29/20 at 13:00; Stop 12/29/20 at 13:29; Status DC Piperacillin Sod/ Tazobactam Sod 3.375 gm/Sodium Chloride 50 ml @ 100 mls/hr Q6HRS IV Last administered on 12/30/20at 12:01; Start 12/29/20 at 19:00; Stop 12/30/20 at 13:32; Status DC Aspirin (Aspirin Chewable) 81 mg DAILY PO Last administered on 01/03/21at 09:37; Start 12/30/20 at 12:30 Furosemide (Lasix) 40 mg DAILY PO Last administered on 01/01/21at 08:16; Start 12/30/20 at 12:30 Gabapentin (Neurontin) 300 mg DAILYWSUP PO Last administered on 01/03/21at 09:43; Start 12/30/20 at 17:00 Ipratropium [place] (Atrovent) 1 mg QID NEB ; Start 12/30/20 at 13:00; Stop 12/30/20 at 11:54; Status DC Ipratropium [place] (Atrovent Nasal) 2 spray BID NS Last administered on 01/02/21at 20:21; Start 12/30/20 at 21:00 Lisinopril (Prinivil) 5 mg DAILY PO Last administered on 01/01/21at 08:15; Start 12/30/20 at 12:30 Metoprolol Succinate (Toprol Xl) 25 mg DAILY PO Last administered on 01/01/21at 08:15; Start 12/30/20 at 12:30 Pantoprazole Sodium (Protonix) 40 mg DAILYAC PO Last administered on 01/03/21 09:46; Start 12/30/20 at 12:30 Pregabalin (Lyrica) 75 mg BID PO Last administered on 01/03/21 09:46; Start 12/30/20 at 21:00 Senna/Docusate Sodium (Senna Plus) 2 tab QHS PO Last administered on 01/02/21at 20:21; Start 12/30/20 at 21:00 Sertraline HCl (Zoloft) 50 mg DAILY PO Last administered on 01/03/21 09:36; Start 12/30/20 at 12:30 Albuterol/ Ipratropium (Duoneb) 3 ml RTQID NEB Last administered on 01/03/21at 11:01; Start 12/30/20 at 12:00 Atorvastatin Calcium (Lipitor) 10 mg DAILY PO Last administered on 01/03/21at 09:36; Start 12/30/20 at 12:30 Potassium Chloride (Klor-Con) 10 meq DAILYWBKFT PO Last administered on 01/03at 09:37; Start 12/30/20 at 12:30 Fentanyl Citrate (Fentanyl 2ml Vial) 25 mcg PRN Q5MIN PRN IVP MILD PAIN 1-3; Start 12/31/20 at 06:00; Stop 01/01/21 at 05:59; Status DC Fentanyl Citrate (Fentanyl 2ml Vial) 50 mcg PRN Q5MIN PRN IVP MODERATE PAIN 4-6; Start 12/31/20 at 06:00; Stop 01/01/21 at 05:59; Status DC Morphine Sulfate (Morphine Sulfate) 1 mg PRN Q10MIN PRN IVP SEVERE PAIN 7-10; Start 12/31/20 at 06:00; Stop 01/01/21 at 05:59; Status DC Ringer's Solution 1,000 ml @ 30 mls/hr Q24H IV ; Start 12/31/20 at 06:00; Stop 12/31/20 at 17:59; Status DC Hydromorphone HCl (Dilaudid) 0.5 mg PRN Q10MIN PRN IVP SEVERE PAIN 7-10, 2nd CHOICE; Start 12/31/20 at 06:00; Stop 01/01/21 at 05:59; Status DC Prochlorperazine Edisylate (Compazine) 5 mg PACU PRN PRN IVP NAUSEA, MRX1; Start 12/31/20 at 06:00; Stop 01/01/21 at 05:59; Status DC Fentanyl Citrate (Fentanyl 2ml Vial) 25 mcg PRN Q5MIN PRN IVP MILD PAIN 1-3; Start 12/31/20 at 06:00; Stop 01/01/21 at 05:59; Status UNV Fentanyl Citrate (Fentanyl 2ml Vial) 50 mcg PRN Q5MIN PRN IVP MODERATE PAIN 4- 6; Start 12/31/20 at 06:00; Stop 01/01/21 at 05:59; Status UNV Morphine Sulfate (Morphine Sulfate) 1 mg PRN Q10MIN PRN IVP SEVERE PAIN 7-10; Start 12/31/20 at 06:00; Stop 01/01/21 at 05:59; Status UNV Ringer's Solution 1,000 ml @ 30 mls/hr Q24H IV ; Start 12/31/20 at 06:00; Stop 12/31/20 at 17:59; Status UNV Hydromorphone HCl (Dilaudid) 0.5 mg PRN Q10MIN PRN IVP SEVERE PAIN 7-10, 2nd CHOICE; Start 12/31/20 at 06:00; Stop 01/01/21 at 05:59; Status UNV Prochlorperazine Edisylate (Compazine) 5 mg PACU PRN PRN IVP NAUSEA, MRX1; Start 12/31/20 at 06:00; Stop 01/01/21 at 05:59; Status UNV Furosemide (Lasix) 40 mg 1X ONCE IVP Last administered on 12/30/20at 17:27; Start 12/30/20 at 17:00; Stop 12/30/20 at 17:01; Status DC Glycopyrrolate (Robinul) 1 mg STK-MED ONCE .ROUTE ; Start 12/31/20 at 08:23; Stop 12/31/20 at 08:23; Status DC Propofol (Diprivan) 200 mg STK-MED ONCE IV ; Start 12/31/20 at 08:23; Stop 12/31/20 at 08:23; Status DC Etomidate (Amidate) 20 mg STK-MED ONCE IV ; Start 12/31/20 at 08:23; Stop 12/31/20 at 08:24; Status DC Lidocaine HCl (Lidocaine Pf 2% Vial) 5 ml STK-MED ONCE .ROUTE ; Start 12/31/20 at 08:24; Stop 12/31/20 at 08:24; Status DC Phenylephrine HCl (PHENYLEPHRINE in 0.9% NACL PF) 1 mg STK-MED ONCE IV ; Start 12/31/20 at 08:24; Stop 12/31/20 at 08:24; Status DC Ephedrine Sulfate (ePHEDrine PF IN SALINE SYRINGE) 50 mg STK-MED ONCE IV ; Start 12/31/20 at 08:24; Stop 12/31/20 at 08:24; Status DC Succinylcholine Chloride (Anectine) 200 mg STK-MED ONCE .ROUTE ; Start 12/31/20 at 08:24; Stop 12/31/20 at 08:24; Status DC Rocuronium [place] (Zemuron) 50 mg STK-MED ONCE .ROUTE ; Start 12/31/20 at 08:24; Stop 12/31/20 at 08:25; Status DC Fentanyl Citrate (Fentanyl 2ml Vial) 100 mcg STK-MED ONCE .ROUTE ; Start 12/31/20 at 08:25; Stop 12/31/20 at 08:25; Status DC Phenylephrine HCl (Can-Synephrine Inj) 10 mg STK-MED ONCE .ROUTE ; Start 12/31/20 at 08:28; Stop 12/31/20 at 08:28; Status DC Bisacodyl (Dulcolax Supp) 10 mg DAILY NC Last administered on 01/03/21at 09:47; Start 12/31/20 at 12:00 Polyethylene Glycol (miraLAX PACKET) 17 gm DAILY PO Last administered on 01/03/21at 09:35; Start 12/31/20 at 12:00 Iron Sucrose 500 mg/Sodium Chloride 275 ml @ 78.571 mls/ hr 1X ONCE IV Last administered on 12/31/20at 16:06; Start 12/31/20 at 13:00; Stop 12/31/20 at 16:29; Status DC Budesonide (Pulmicort) 0.5 mg RTBID NEB Last administered on 01/03/21at 07:06; Start 01/02/21 at 20:00 Temazepam (Restoril) 15 mg PRN QHS PRN PO INSOMNIA Last administered on 01/02/21at 22:15; Start 01/02/21 at 21:45 Oxymetazoline HCl (Afrin) 2 spray PRN BID PRN NS CONGESTION Last administered on 01/03/21at 09:36; Start 01/02/21 at 21:45 Guaifenesin (Mucinex) 600 mg BID PO Last administered on 01/03/21at 09:37; Start 01/02/21 at 22:00 Active Scripts Active Lisinopril 5 Mg Tablet 5 Mg PO DAILY Senna Plus Tablet (Sennosides/Docusate Sodium) 1 Each Tablet 2 Tab PO QHS 14 Days Furosemide 40 Mg Tablet 40 Mg PO DAILY MDD 1 Reported Sertraline Hcl 50 Mg Tablet 50 Mg PO DAILY Budesonide 0.5 Mg/2 Ml Ampul.neb 1 Vial NEB BID Tudorza Pressair (Aclidinium [place]) 400 Mcg Aer.pow.ba 1 Puff IH BID Ipratropium [place] 0.2 Mg/1 Ml Solution 1 Vial NEB QID Klor-Con 10 (Potassium Chloride) 10 Meq Tablet.er 1 Tab PO DAILY 30 Days Lyrica (Pregabalin) 75 Mg Capsule 1 Cap PO BID Ipratropium [place] 15 Ml [place] 2 Sprays NS BID Metoprolol Succinate ( Xl ) (Metoprolol Succinate) 25 Mg Tab.er.24h 1 Tab PO DAILY 30 Days Pantoprazole Sodium 40 Mg Tablet.dr 1 Tab PO DAILY 30 Days Gabapentin (Gabapentin) 300 Mg Capsule 300 Mg PO DAILYWSUP Aspirin 81 Mg Tab.chew 81 Mg PO DAILY Lovastatin 40 Mg Tablet 1 Tab PO DAILY Vitals/I & O Vital Sign - Last 24 Hours 01/02/21 01/02/21 01/02/21 01/02/21 15:44 15:50 19:00 19:57 Temp 97.8 96.1 97.8 96.1 Pulse 72 72 Resp 20 24 B/P (MAP) 114/60 (78) 108/60 (76) Pulse Ox 98 96 90 98 O2 Delivery Nasal Cannula Nasal Cannula Nasal Cannula Nasal Cannula O2 Flow Rate 4.0 5.0 4.0 5.0 01/02/21 01/02/21 01/03/21 01/03/21 20:15 23:33 03:00 07:00 Temp 97.2 97.6 95.6 97.2 97.6 95.6 Pulse 73 69 70 Resp 16 16 13 B/P (MAP) 123/63 (83) 117/70 (86) 77/45 (56) Pulse Ox 95 95 97 O2 Delivery Nasal Cannula Nasal Cannula Nasal Cannula Nasal Cannula O2 Flow Rate 5.0 4.0 4.0 4.0 01/03/21 01/03/21 01/03/21 01/03/21 07:07 09:00 11:00 11:01 Temp 96.3 96.3 Pulse 70 71 Resp 21 B/P (MAP) 77/45 118/59 (78) Pulse Ox 97 95 97 O2 Delivery Nasal Cannula Nasal Cannula Nasal Cannula O2 Flow Rate 5.0 4.0 5.0 Intake and Output 01/02/21 01/02/21 01/03/21 15:00 23:00 07:00 Intake Total 400 ml 400 ml 350 ml Output Total 450 ml Balance -50 ml 400 ml 350 ml Nutrition Consultation Dietary Evaluation: Recommendations by RD: Dietary education by RD, Protein supplementation Comments: REC Cardiac diet when appropriate REC Ensure TID for increased protein intake Expected Outcomes/Goals: Improved po intake PO intake >75% estimated nutritional needs Malnutrition Findings: Food and Nutrition Intake (Sev: <50% est energy req 5days Weight Status: Obese Fluid Accumulation (Non-Severe: Mild depletion Justicifation of Admission Dx: Justifications for Admission: Justification of Admission Dx: Yes Respiratory Failure: Severe Resp Distress OSMAR DAVIS MD Jan 03, 2021 12:09
--- NOTE | 2021-01-03 12:41 | PDOC ---
SRAVAN CASTRO INTERNAL GRINDER 01/03/21 1241: CARDIO Progress Notes Date and Time Date of Service 01/03/21 Time of Evaluation 1220 Subjective Subjective: No Chest Pain, No shortness of breath Vitals Vitals Vital Signs Date Time Temp Pulse Resp B/P (MAP) Pulse Ox O2 Delivery O2 Flow Rate FiO2 01/03/21 11:01 97 Nasal Cannula 5.0 01/03/21 11:00 96.3 71 21 118/59 (78) 96.3 Weight Weight [ ] Input and Output Intake and Output Intake and Output 01/03/21 07:00 Intake Total 1150 ml Output Total 450 ml Balance 700 ml Intake Oral 1150 ml Output Urine Total 450 ml Microbiology Micro Microbiology 12/29/20 Blood Culture - Final, Complete NO GROWTH AFTER 5 DAYS Physical Exam HEENT: Neck Supple W Full Motion Chest: Symmetric LUNGS: Clear to Auscultation Heart: other (vpaced with underlying AFIB ) Abdomen: Other (soft ) Extremities: Other (trace bilateral LE edema ) Neurology: alert, oriented, follow commands Assessment Assessment 1 Mild acute on chronic systolic CHF 2. ICM: Echo 10/24 with LVEF 30-35%. S/p FURNACE CLERK-D ([employer]). Device check 10/24 with normal function. stable lead impedances, adequate batter life at 20%. AFIB burden > 99%. 3. CAD: past CABG and PCI. Most recent PCI/stents 12/2015 as noted above. Clinically stable. 4. Anemia, coagulopathy; s/p transfusion 5. Colon CA with obstructing colonic mass; plans for colon resection tomorrow 6. Persistent AFIB; v-paced with underlying AFIB, rate controlled 7. Hypertension; controlled 8. Hyperlipidemia; statin 9. GRUPO on CKD; improved 10. COPD with home O2 use 11. Left cephalic vein thrombus Recommendations Lasix therapy; monitor renal function Continue secondary prevention measures as able . HF optimization with Troprol, ACEi, and Lasix Okay to hold ASA for now with anemia, coagulopathy. Not on OAC due to past fall, hemorrhage, and anemia. Supportive care Follow GS recommendations Justicifation of Admission Dx: Justifications for Admission: Justification of Admission Dx: Yes Respiratory Failure: Severe Resp Distress ERIC OROZCO MD 01/03/21 2023: CARDIO Progress Notes Assessment Assessment Patient seen and examined He looks and feels better today. I agree with our nurse practitioners assessment and plan. Mild acute on chronic systolic CHF. Compensated ICM: Echo 10/24 with LVEF 30-35%. S/p FURNACE CLERK-D (St Tim). Device check 10/24 with normal function. stable lead impedances, adequate batter life at 20%. AFIB burden > 99%. CAD: past CABG and PCI. Most recent PCI/stents 12/2015 as noted above. Clinically stable. Anemia, coagulopathy; s/p transfusion Colon CA with obstructing colonic mass; plans for colon resection tomorrow. Moderate risk from a cardiology viewpoint Persistent AFIB; v-paced with underlying AFIB, rate controlled Hypertension; controlled Hyperlipidemia; statin GRUPO on CKD; improved COPD with home O2 use Left cephalic vein thrombosis. Okay to hold ASA for now with anemia, coagulopathy. Not on OAC due to past fall, hemorrhage, and anemia. SRAVAN CASTRO APRN Jan 03, 2021 12:41 ERIC OROZCO MD Jan 03, 2021 17:23
[2021-01-03] MEDS: FUROSEMIDE 40 MG TABLET. PO SCH (12:59)
--- NOTE | 2021-01-03 13:13 | NUR ---
TAISHA following for discharge planning. Spoke with RN and reviewed chart. Pt COVID negative, 5l 02, full liquid diet. Pt will likely have surgery tomorrow, 01/04 and the PT/OT to evaluate. Pt from home with spouse. TAISHA following. Addendum: 01/03/21 at 1411 by HATTIE SUMNER Pt current with [facility] and has home 02 through [facility]. Addendum: 01/04/21 at 1041 by HATTIE SUMNER Pt transferred to ICU.
[2021-01-03 15:00] VITALS: BP 109/53
[2021-01-03 15:21] LABS: BASO # 0.1 x10^3/uL (0.0-0.2); BASO % 1 % (0-3); EOS # 0.3 x10^3/uL (0.0-0.7); EOS % 4 % (0-3); LYMPH # 0.9 x10^3/uL (1.0-4.8); LYMPH % 12 % (24-48); MEAN CORPUSCULAR HEMOGLOBIN 24 pg (25-35); MEAN CORPUSCULAR HGB CONC 30 g/dL (31-37); MEAN CORPUSCULAR VOLUME 81 fL (79-100); MONO # 0.7 x10^3/uL (0.0-1.1); MONO % 9 % (0-9); NEUT # 5.2 x10^3/uL (1.8-7.7); NEUT % 73 % (31-73); PLATELET COUNT 146 x10^3/uL (140-400); RED BLOOD COUNT 3.73 x10^6/uL (4.30-5.70); RED CELL DISTRIBUTION WIDTH 22.6 % (11.5-14.5); WHITE BLOOD COUNT 7.1 x10^3/uL (4.0-11.0)
[2021-01-03 15:36] LABS: ALBUMIN 2.9 g/dL (3.4-5.0); ALBUMIN/GLOBULIN RATIO 0.8 (1.0-1.7); CREATININE 1.3 mg/dL (0.7-1.3); GFR 53.5; POTASSIUM 4.6 mmol/L (3.5-5.1); TOTAL BILIRUBIN 1.7 mg/dL (0.2-1.0); TOTAL PROTEIN 6.6 g/dL (6.4-8.2)
[2021-01-03 19:00] VITALS: BP 113/66
--- NOTE | 2021-01-03 20:48 | PDOC ---
SURGICAL PROGRESS NOTE DATE: 01/03/21 TIME: 20:45 Subjective Pt without new c/o, pepe PO, passing stools Vital Signs Vital Signs Date Time Temp Pulse Resp B/P (MAP) Pulse Ox O2 Delivery O2 Flow Rate FiO2 01/03/21 20:32 98 Nasal Cannula 5.0 01/03/21 15:00 96.4 69 19 109/53 (71) 96.4 I&O Intake and Output 01/03/21 07:00 Intake Total 1150 ml Output Total 450 ml Balance 700 ml Intake Oral 1150 ml Output Urine Total 450 ml General: Alert, Oriented X3, Cooperative, No acute distress Abdomen: Soft, No tenderness Labs Laboratory Tests Test 01/02/21 03:30 01/03/21 15:12 White Blood Count 6.9 x10^3/uL (4.0-11.0) 7.1 x10^3/uL (4.0-11.0) Red Blood Count 3.23 x10^6/uL (4.30-5.70) 3.73 x10^6/uL (4.30-5.70) Hemoglobin 7.6 g/dL (13.0-17.5) 9.0 g/dL (13.0-17.5) Hematocrit 25.1 % (39.0-53.0) 30.0 % (39.0-53.0) Mean Corpuscular Volume 78 fL (79-100) 81 fL (79-100) Mean Corpuscular Hemoglobin 23 pg (25-35) 24 pg (25-35) Mean Corpuscular Hemoglobin Concent 30 g/dL (31-37) 30 g/dL (31-37) Red Cell Distribution Width 22.0 % (11.5-14.5) 22.6 % (11.5-14.5) Platelet Count 130 x10^3/uL (140-400) 146 x10^3/uL (140-400) Neutrophils (%) (Auto) 72 % (31-73) 73 % (31-73) Lymphocytes (%) (Auto) 11 % (24-48) 12 % (24-48) Monocytes (%) (Auto) 12 % (0-9) 9 % (0-9) Eosinophils (%) (Auto) 4 % (0-3) 4 % (0-3) Basophils (%) (Auto) 1 % (0-3) 1 % (0-3) Neutrophils # (Auto) 4.9 x10^3/uL (1.8-7.7) 5.2 x10^3/uL (1.8-7.7) Lymphocytes # (Auto) 0.8 x10^3/uL (1.0-4.8) 0.9 x10^3/uL (1.0-4.8) Monocytes # (Auto) 0.8 x10^3/uL (0.0-1.1) 0.7 x10^3/uL (0.0-1.1) Eosinophils # (Auto) 0.3 x10^3/uL (0.0-0.7) 0.3 x10^3/uL (0.0-0.7) Basophils # (Auto) 0.1 x10^3/uL (0.0-0.2) 0.1 x10^3/uL (0.0-0.2) Segmented Neutrophils % 76 % (35-66) Band Neutrophils % 2 % (0-9) Lymphocytes % 13 % (24-48) Monocytes % 3 % (0-10) Eosinophils % 5 % (0-5) Basophils % 1 % (0-3) Nucleated Red Blood Cells 5 Platelet Estimate Decreased (ADEQUATE) Polychromasia Slight Hypochromasia Slight Poikilocytosis Slight Anisocytosis Mod Ovalocytes Few Sodium Level 137 mmol/L (136-145) 137 mmol/L (136-145) Potassium Level 3.7 mmol/L (3.5-5.1) 4.6 mmol/L (3.5-5.1) Chloride Level 105 mmol/L (98-107) 103 mmol/L (98-107) Carbon Dioxide Level 26 mmol/L (21-32) 25 mmol/L (21-32) Anion Gap 6 (6-14) 9 (6-14) Blood Urea Nitrogen 19 mg/dL (8-26) 15 mg/dL (8-26) Creatinine 1.2 mg/dL (0.7-1.3) 1.3 mg/dL (0.7-1.3) Estimated GFR (Cockcroft-Gault) 58.7 53.5 Glucose Level 101 mg/dL (70-99) 76 mg/dL (70-99) Calcium Level 7.6 mg/dL (8.5-10.1) 8.0 mg/dL (8.5-10.1) BUN/Creatinine Ratio 12 (6-20) Total Bilirubin 1.7 mg/dL (0.2-1.0) Aspartate Amino Transf (AST/SGOT) 39 U/L (15-37) Alanine Aminotransferase (ALT/SGPT) 51 U/L (16-63) Alkaline Phosphatase 173 U/L (46-116) Total Protein 6.6 g/dL (6.4-8.2) Albumin 2.9 g/dL (3.4-5.0) Albumin/Globulin Ratio 0.8 (1.0-1.7) Laboratory Tests Test 01/03/21 15:12 White Blood Count 7.1 x10^3/uL (4.0-11.0) Red Blood Count 3.73 x10^6/uL (4.30-5.70) Hemoglobin 9.0 g/dL (13.0-17.5) Hematocrit 30.0 % (39.0-53.0) Mean Corpuscular Volume 81 fL (79-100) Mean Corpuscular Hemoglobin 24 pg (25-35) Mean Corpuscular Hemoglobin Concent 30 g/dL (31-37) Red Cell Distribution Width 22.6 % (11.5-14.5) Platelet Count 146 x10^3/uL (140-400) Neutrophils (%) (Auto) 73 % (31-73) Lymphocytes (%) (Auto) 12 % (24-48) Monocytes (%) (Auto) 9 % (0-9) Eosinophils (%) (Auto) 4 % (0-3) Basophils (%) (Auto) 1 % (0-3) Neutrophils # (Auto) 5.2 x10^3/uL (1.8-7.7) Lymphocytes # (Auto) 0.9 x10^3/uL (1.0-4.8) Monocytes # (Auto) 0.7 x10^3/uL (0.0-1.1) Eosinophils # (Auto) 0.3 x10^3/uL (0.0-0.7) Basophils # (Auto) 0.1 x10^3/uL (0.0-0.2) Sodium Level 137 mmol/L (136-145) Potassium Level 4.6 mmol/L (3.5-5.1) Chloride Level 103 mmol/L (98-107) Carbon Dioxide Level 25 mmol/L (21-32) Anion Gap 9 (6-14) Blood Urea Nitrogen 15 mg/dL (8-26) Creatinine 1.3 mg/dL (0.7-1.3) Estimated GFR (Cockcroft-Gault) 53.5 BUN/Creatinine Ratio 12 (6-20) Glucose Level 76 mg/dL (70-99) Calcium Level 8.0 mg/dL (8.5-10.1) Total Bilirubin 1.7 mg/dL (0.2-1.0) Aspartate Amino Transf (AST/SGOT) 39 U/L (15-37) Alanine Aminotransferase (ALT/SGPT) 51 U/L (16-63) Alkaline Phosphatase 173 U/L (46-116) Total Protein 6.6 g/dL (6.4-8.2) Albumin 2.9 g/dL (3.4-5.0) Albumin/Globulin Ratio 0.8 (1.0-1.7) Problem List Problems Medical Problems: (1) Abdominal pain Status: Acute Assessment/Plan colon mass plan right colon in AM R/B/A d/w pt and pt's SO. Justicifation of Admission Dx: Justifications for Admission: Justification of Admission Dx: Yes Respiratory Failure: Severe Resp Distress MADDIE REYES MD Jan 03, 2021 20:48
[2021-01-03] MEDS: TEMAZEPAM 15 MG CAPSULE PO PRN (20:53)
[2021-01-03] MEDS: SENNOSIDES/DOCUSATE 8.6/50MG TABLET. PO SCH (20:53)
[2021-01-03 23:12] VITALS: BP 109/61
[2021-01-04] VITALS (11 sets, daily range): BP systolic 93–146; BP diastolic 50–67
[2021-01-04] MEDS ORDERED: PROCHLORPERAZINE 10 MG/2 ML VIAL. IVP PRN (06:00)
[2021-01-04] MEDS ORDERED: MORPHINE SULFATE 2 MG/ML VIAL. IVP PRN (06:00)
[2021-01-04] MEDS ORDERED: IV RINGERS,LACTATED 1000ML 1,000 ML IV SCH (06:00)
[2021-01-04] MEDS ORDERED: fentaNYL PF VIAL 100 MCG/2 ML VIAL IVP PRN ×2 (06:00)
[2021-01-04] MEDS: IPRATRPIUM/ALBUTEROL 0.5/2.5MG 3 ML NEBU. NEB SCH ×4 (07:10→20:11)
[2021-01-04] MEDS: PANTOPRAZOLE 40 MG TABLET.DR. PO SCH (07:30)
[2021-01-04] MEDS: POTASSIUM CHLORIDE 10 MEQ TABLET.ER. PO SCH (08:00)
[2021-01-04] MEDS: BUDESONIDE 0.5 MG/2 ML NEBU. NEB SCH ×2 (08:00→20:11)
[2021-01-04] MEDS ORDERED: LIDOCAINE 1% PF 2 ML VIAL. ONE (08:08)
[2021-01-04] MEDS ORDERED: PROPOFOL 10 MG/ML (20ML) VIAL. IV ONE (08:29)
[2021-01-04] MEDS ORDERED: ONDANSETRON PF 4 MG/2 ML VIAL. ONE (08:29)
[2021-01-04] MEDS ORDERED: DEXAMETHASONE SOD PHOS 4 MG/ML VIAL ONE (08:29)
[2021-01-04] MEDS ORDERED: LIDOCAINE 2% PF 5 ML VIAL. ONE (08:29)
[2021-01-04] MEDS ORDERED: ROCURONIUM 50 MG/5 ML VIAL. ONE ×2 (08:30→09:43)
[2021-01-04] MEDS ORDERED: fentaNYL PF VIAL 100 MCG/2 ML VIAL ONE ×3 (08:30→12:29)
[2021-01-04] MEDS ORDERED: SUCCINYLCHOLINE 200 MG/10 ML VIAL. ONE (08:30)
[2021-01-04] MEDS ORDERED: PHENYLEPHRINE 10 MG/ML VIAL. ONE (08:55)
[2021-01-04] MEDS: POLYETHYLENE GLYCOL 3350 17 GM PACKET. PO SCH (09:00)
[2021-01-04] MEDS: FUROSEMIDE 40 MG TABLET. PO SCH (09:00)
[2021-01-04] MEDS ORDERED: cefTRIAXone IV Push 1 GM VIAL. IVP SCH (09:00)
[2021-01-04] MEDS: SERTRALINE 50 MG TABLET. PO SCH (09:00)
[2021-01-04] MEDS: ATORVASTATIN CALCIUM 10 MG TABLET. PO SCH (09:00)
[2021-01-04] MEDS: PREGABALIN 75 MG CAPSULE PO SCH ×2 (09:00→21:00)
[2021-01-04] MEDS: METOPROLOL SUCC 24HR ER 25 MG TAB.ER.24H. PO SCH (09:00)
[2021-01-04] MEDS: IPRATROPIUM BROMIDE 0.06% NASAL SPRAY 15ML BOTTLE. NS SCH ×2 (09:00→21:58)
[2021-01-04] MEDS: LISINOPRIL 5 MG TABLET. PO SCH (09:00)
[2021-01-04] MEDS: BISACODYL 10 MG SUPP.RECT. PR SCH (09:00)
[2021-01-04] MEDS: ASPIRIN CHEWABLE 81 MG TABLET. PO SCH (09:00)
--- NOTE | 2021-01-04 09:15 | PDOC ---
SURGICAL PROGRESS NOTE DATE: 01/04/21 TIME: 09:10 Subjective Pre-Op Note 75 yo M with right colon mass, circumferential, on colonoscopy 10/2020, concerning for malignancy. Biopsy c/w tubulovillous adenoma. Pt with increasing problems with constipation and abd pain. W/u by pulm and cards maximized, but remains high risk TO OR for open (concern for compromised pulm status with laparoscopy) right colectomy. R/R/B/A d/w pt and pt's supportive family. Risks, including, but not limited to: bleeding, infection, damage to surrounding structures, risk of anesthesia, risk of anastomotic leak, risk of prolonged ventilation. They appear to understand, their questions are answered and they elect to proceed. Vital Signs Vital Signs Date Time Temp Pulse Resp B/P (MAP) Pulse Ox O2 Delivery O2 Flow Rate FiO2 01/04/21 09:00 98.6 80 20 140/52 96 Nasal Cannula 4 98.6 I&O Intake and Output 01/04/21 07:00 Intake Total 0 ml Output Total 2800 ml Balance -2800 ml Intake Oral 0 ml Output Urine Total 2800 ml Labs Laboratory Tests Test 01/03/21 15:12 White Blood Count 7.1 x10^3/uL (4.0-11.0) Red Blood Count 3.73 x10^6/uL (4.30-5.70) Hemoglobin 9.0 g/dL (13.0-17.5) Hematocrit 30.0 % (39.0-53.0) Mean Corpuscular Volume 81 fL (79-100) Mean Corpuscular Hemoglobin 24 pg (25-35) Mean Corpuscular Hemoglobin Concent 30 g/dL (31-37) Red Cell Distribution Width 22.6 % (11.5-14.5) Platelet Count 146 x10^3/uL (140-400) Neutrophils (%) (Auto) 73 % (31-73) Lymphocytes (%) (Auto) 12 % (24-48) Monocytes (%) (Auto) 9 % (0-9) Eosinophils (%) (Auto) 4 % (0-3) Basophils (%) (Auto) 1 % (0-3) Neutrophils # (Auto) 5.2 x10^3/uL (1.8-7.7) Lymphocytes # (Auto) 0.9 x10^3/uL (1.0-4.8) Monocytes # (Auto) 0.7 x10^3/uL (0.0-1.1) Eosinophils # (Auto) 0.3 x10^3/uL (0.0-0.7) Basophils # (Auto) 0.1 x10^3/uL (0.0-0.2) Sodium Level 137 mmol/L (136-145) Potassium Level 4.6 mmol/L (3.5-5.1) Chloride Level 103 mmol/L (98-107) Carbon Dioxide Level 25 mmol/L (21-32) Anion Gap 9 (6-14) Blood Urea Nitrogen 15 mg/dL (8-26) Creatinine 1.3 mg/dL (0.7-1.3) Estimated GFR (Cockcroft-Gault) 53.5 BUN/Creatinine Ratio 12 (6-20) Glucose Level 76 mg/dL (70-99) Calcium Level 8.0 mg/dL (8.5-10.1) Total Bilirubin 1.7 mg/dL (0.2-1.0) Aspartate Amino Transf (AST/SGOT) 39 U/L (15-37) Alanine Aminotransferase (ALT/SGPT) 51 U/L (16-63) Alkaline Phosphatase 173 U/L (46-116) Total Protein 6.6 g/dL (6.4-8.2) Albumin 2.9 g/dL (3.4-5.0) Albumin/Globulin Ratio 0.8 (1.0-1.7) Laboratory Tests Test 01/03/21 15:12 White Blood Count 7.1 x10^3/uL (4.0-11.0) Red Blood Count 3.73 x10^6/uL (4.30-5.70) Hemoglobin 9.0 g/dL (13.0-17.5) Hematocrit 30.0 % (39.0-53.0) Mean Corpuscular Volume 81 fL (79-100) Mean Corpuscular Hemoglobin 24 pg (25-35) Mean Corpuscular Hemoglobin Concent 30 g/dL (31-37) Red Cell Distribution Width 22.6 % (11.5-14.5) Platelet Count 146 x10^3/uL (140-400) Neutrophils (%) (Auto) 73 % (31-73) Lymphocytes (%) (Auto) 12 % (24-48) Monocytes (%) (Auto) 9 % (0-9) Eosinophils (%) (Auto) 4 % (0-3) Basophils (%) (Auto) 1 % (0-3) Neutrophils # (Auto) 5.2 x10^3/uL (1.8-7.7) Lymphocytes # (Auto) 0.9 x10^3/uL (1.0-4.8) Monocytes # (Auto) 0.7 x10^3/uL (0.0-1.1) Eosinophils # (Auto) 0.3 x10^3/uL (0.0-0.7) Basophils # (Auto) 0.1 x10^3/uL (0.0-0.2) Sodium Level 137 mmol/L (136-145) Potassium Level 4.6 mmol/L (3.5-5.1) Chloride Level 103 mmol/L (98-107) Carbon Dioxide Level 25 mmol/L (21-32) Anion Gap 9 (6-14) Blood Urea Nitrogen 15 mg/dL (8-26) Creatinine 1.3 mg/dL (0.7-1.3) Estimated GFR (Cockcroft-Gault) 53.5 BUN/Creatinine Ratio 12 (6-20) Glucose Level 76 mg/dL (70-99) Calcium Level 8.0 mg/dL (8.5-10.1) Total Bilirubin 1.7 mg/dL (0.2-1.0) Aspartate Amino Transf (AST/SGOT) 39 U/L (15-37) Alanine Aminotransferase (ALT/SGPT) 51 U/L (16-63) Alkaline Phosphatase 173 U/L (46-116) Total Protein 6.6 g/dL (6.4-8.2) Albumin 2.9 g/dL (3.4-5.0) Albumin/Globulin Ratio 0.8 (1.0-1.7) Problem List Problems Medical Problems: (1) Abdominal pain Status: Acute Justicifation of Admission Dx: Justifications for Admission: Justification of Admission Dx: Yes Respiratory Failure: Severe Resp Distress MADDIE REYES MD Jan 04, 2021 09:14
[2021-01-04] MEDS ORDERED: SURGICEL HEMOSTAT 4X8 EACH. ONE ×5 (10:43→10:47)
[2021-01-04] MEDS ORDERED: SEVOFLURANE > 120 MINUTES. IH ONE (11:03)
[2021-01-04] MEDS ORDERED: 0.9 % SODIUM CHLORIDE 10 ML DISP.SYRIN. IV PRN (11:30)
[2021-01-04] MEDS ORDERED: NALOXONE 0.4 MG/ML VIAL. IV PRN (11:30)
--- NOTE | 2021-01-04 11:43 | PDOC4 ---
OPERATIVE NOTE Date: Date: Jan 04, 2021 Pre-Op Diagnosis: Colon mass Post-Op Diagnosis: same, possible metastatic colon cancer Procedure Performed: open right colon resection, liver biopsy Surgeon: Ricardo Reyes Anesthesia Type: GETA Blood Loss: 200 Specimans Obtained: right colon, liver biopsy Findings: minimal subcutaneous tissues, increased intraabdominal adipose tissue, normal stomach, liver with 1 cm mass inferior aspect segment 6, and noted to have dark purple color, c/w congestion, normal gallbladder, normal duodenum, normal small bowel, somewhat thickened appendix, normal right ureter, mass in right colon at tattoo site, scarring of right colon to side wall, normal remaining colon, no other metastatic disease Complications: none Operative Note: After obtaining informed consent, patient was taken to OR, induced under GETA and prepped in the usual fashion. Midline incision was made with cautery. Abdominal cavity was explored and noted as above. Adhesions of right abdominal wall and white line of toldt was taken down using cautery. Right colon was mobilized fully. No evidence of injury of right ureter. ENID 75 used to divided small bowel proximal to ileocecal valve. Transverse colon divided transverse colon. Mesentery taken near origin of vessels with ligasure. Specimen sent to pathology for evaluation. Side to side stapled anastomosis created with ENID 75 and TA 60 used to seal. Reinforced with 3 0 vicryl. Mesentery repaired with 3 0 chromic. Anastomosis noted to be patent, under no tension and completely viable. Liver mass was identified and excised with cautery and sent to pathology. Hemostasis obtained with cautery and surgicel. Copious irrigation. No evidence of bleeding or other pathology. Fascia repaired with 0 looped PDS. Skin repaired with 3 0 vicryl and 4 0 monocryl. Nelia was placed in wound and secured with 3 0 nylon. Dressing placed. Patient tolerated procedure well and sent to ICU in stable condition. Extubation will be considered. All counts correct. Wound class is 3. MADDIE REYES MD Jan 04, 2021 11:43
[2021-01-04] MEDS ORDERED: HYDROmorphone 2 MG/ML VIAL ONE (12:42)
[2021-01-04] MEDS: HYDROmorphone 2 MG/ML VIAL IVP PRN ×2 (12:53→13:44)
[2021-01-04] MEDS ORDERED: KETAMINE HCL IN NACL, ISO-OSM 50 MG/5 ML SYRINGE ONE (15:01)
[2021-01-04] MEDS: IV RINGERS,LACTATED 1000ML 1,000 ML IV SCH (15:44)
[2021-01-04] MEDS: ENOXAPARIN 40 MG/0.4 ML SYRINGE. SQ SCH (16:00)
[2021-01-04] MEDS: GABAPENTIN 300 MG CAPSULE. PO SCH (17:00)
--- NOTE | 2021-01-04 17:51 | RAD ---
PROCEDURE: XR ABDOMEN 1V STUDY DATE: 01/04/2021 CLINICAL INDICATION / HISTORY: Reason: POST OP KUB IN OR, POST COLON RESECTION.ALL POST OP COUNTS COR RECT. / Spl. Instructions: / History: . TECHNIQUE: Single AP image of the abdomen was obtained. COMPARISON: None FINDINGS: The lung bases are not included. A nonobstructive bowel gas pattern is present. Sutures in the right lower abdomen are present, consistent with bowel surgery. No organomegaly or pathologic ca lcifications are identified. No acute osseous abnormality. No retained radiopaque foreign body is efren arent. IMPRESSION: No acute abdominal process. No retained radiopaque foreign body identified. Electronically signed by: Dolores Osei MD (01/04/2021 5:48 PM) [id number]
[2021-01-04 18:36] LABS: BASE EXCESS COOX -2 mmol/L (-3-3); HCO3 COOX 24 mmol/L (21-28); METHEMOGLOBIN 0.5 % (0.0-1.9); OXYHEMOGLOBIN 97.9 %; PCO2 COOX 48 mmHg (35-46); PO2 COOX 229 mmHg (65-108); SAT O2 COOX 99 % (92-99)
[2021-01-04] MEDS: SENNOSIDES/DOCUSATE 8.6/50MG TABLET. PO SCH (21:00)
[2021-01-04] MEDS: IV NORMAL SALINE 1000ML BAG 1,000 ML IV SCH (21:13)
[2021-01-05] VITALS (25 sets, daily range): BP systolic 91–152; BP diastolic 47–80
[2021-01-05] MEDS: IV RINGERS,LACTATED 1000ML 1,000 ML IV SCH ×3 (02:03→12:41)
[2021-01-05] MEDS ORDERED: IV NORMAL SALINE 250ML 250 ML IV ONE (06:00)
[2021-01-05 06:30] LABS: BASO % 0 % (0-3); EOS % 0 % (0-3); HEMATOCRIT 25.8 % (39.0-53.0); HEMOGLOBIN 7.7 g/dL (13.0-17.5); LYMPH # 0.3 x10^3/uL (1.0-4.8); LYMPH % 3 % (24-48); MEAN CORPUSCULAR HEMOGLOBIN 24 pg (25-35); MEAN CORPUSCULAR HGB CONC 30 g/dL (31-37); MEAN CORPUSCULAR VOLUME 82 fL (79-100); MONO # 0.6 x10^3/uL (0.0-1.1); MONO % 5 % (0-9); NEUT # 10.8 x10^3/uL (1.8-7.7); NEUT % 92 % (31-73); PLATELET COUNT 124 x10^3/uL (140-400); RED BLOOD COUNT 3.16 x10^6/uL (4.30-5.70); RED CELL DISTRIBUTION WIDTH 23.7 % (11.5-14.5); WHITE BLOOD COUNT 11.7 x10^3/uL (4.0-11.0)
[2021-01-05 06:37] LABS: CALCIUM 7.6 mg/dL (8.5-10.1); CREATININE 1.2 mg/dL (0.7-1.3); GFR 58.7; POTASSIUM 5.3 mmol/L (3.5-5.1)
[2021-01-05] MEDS: PANTOPRAZOLE 40 MG TABLET.DR. PO SCH (07:26)
[2021-01-05] MEDS: BUDESONIDE 0.5 MG/2 ML NEBU. NEB SCH ×2 (07:42→20:21)
[2021-01-05] MEDS: IPRATRPIUM/ALBUTEROL 0.5/2.5MG 3 ML NEBU. NEB SCH ×4 (07:42→20:21)
[2021-01-05 07:48] LABS: BASE EXCESS ABG -1 mmol/L (-3-3); HCO3 ABG 24 mmol/L (21-28); PCO2 ABG 44 mmHg (35-46); PO2 ABG 137 mmHg (65-108); SAT O2 ABG 98 % (92-99)
[2021-01-05] MEDS: POTASSIUM CHLORIDE 10 MEQ TABLET.ER. PO SCH (07:49)
[2021-01-05 07:50] LABS: FIO2 ABG 50 BIPAP
--- NOTE | 2021-01-05 08:00 | PDOC ---
[employer] PROGRESS NOTE Date of Service DOS: DATE: 01/05/21 TIME: 07:59 Chief Complaint Chief Complaint Acute Abd pain, fluid overload colon cancer, plan resection 3.2, iron deficiency anemia, obese, BMI 32 weakness, debility depression, insomnia neuropathy History of Present Illness History of Present Illness 01/03: To OR for open colectomy for definitive treatment of tubulovillous adenomatous colon ca. Transferred to ICU thereafter. Seen in ICU. On facemask O2. 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 His only complaint is dry mouth. 01/02/2021 Patient seen and examined, sitting up and talkative He has no new complaints DWRN Chart reviewed 01/01/21 Patient seen and examined, sitting up and alert Rogder says he has been having issues swallowing liquids, ordering bedside swallow. He did take a drink and have a coughing fit during our conversation, says this happens frequently and sometimes will cause him to pass out when it cuts off his oxygen supply Patient had no new questions or concerns about his surgery or prognosis DWRN Chart reviewed 12/31/2020 Patient seen and examined Discussed surgery date push back DWRN Chart reviewed 12/30/2020 Patient seen and examined Discussed CRC prognosis and he wanted a second opinion on the prognosis. Called Dr. Cullen who is willing to complete surgery if patient decides that is what he wants after second consult DWRN Chart reviewed Vitals/I&O Vitals/I&O: Vital Signs Date Time Temp Pulse Resp B/P (MAP) Pulse Ox O2 Delivery O2 Flow Rate FiO2 01/05/21 07:42 99 BiPAP/CPAP 01/05/21 07:00 97.3 68 20 152/64 (93) 97.3 01/05/21 04:00 6.0 I & O 01/04/21 01/04/21 01/05/21 15:00 23:00 07:00 Intake Total 100 ml 1001 ml 966 ml Output Total 900 ml 895 ml 190 ml Balance -800 ml 106 ml 776 ml Physical Exam General: Alert, Oriented X3, Cooperative, No acute distress Heart: Regular rate Lungs: Crackles Abdomen: Soft, No tenderness Extremities: No clubbing, No cyanosis, Other (Mild edema) Skin: No rashes, Other (Bruising on arms) Labs Labs: Laboratory Tests Test 01/04/21 18:16 01/05/21 06:00 01/05/21 07:45 O2 Saturation 99 % (92-99) 98 % (92-99) Arterial Blood pH 7.32 (7.35-7.45) 7.36 (7.35-7.45) Arterial Blood pCO2 at Patient Temp 48 mmHg (35-46) 44 mmHg (35-46) Arterial Blood pO2 at Patient Temp 229 mmHg (65-108) 137 mmHg (65-108) Arterial Blood HCO3 24 mmol/L (21-28) 24 mmol/L (21-28) Arterial Blood Base Excess -2 mmol/L (-3-3) -1 mmol/L (-3-3) Oxyhemoglobin 97.9 % Methemoglobin 0.5 % (0.0-1.9) Carbon Monoxide, Quantitative 0.7 % (0.0-1.9) FiO2 100% bipap 50 bipap White Blood Count 11.7 x10^3/uL (4.0-11.0) Red Blood Count 3.16 x10^6/uL (4.30-5.70) Hemoglobin 7.7 g/dL (13.0-17.5) Hematocrit 25.8 % (39.0-53.0) Mean Corpuscular Volume 82 fL (79-100) Mean Corpuscular Hemoglobin 24 pg (25-35) Mean Corpuscular Hemoglobin Concent 30 g/dL (31-37) Red Cell Distribution Width 23.7 % (11.5-14.5) Platelet Count 124 x10^3/uL (140-400) Neutrophils (%) (Auto) 92 % (31-73) Lymphocytes (%) (Auto) 3 % (24-48) Monocytes (%) (Auto) 5 % (0-9) Eosinophils (%) (Auto) 0 % (0-3) Basophils (%) (Auto) 0 % (0-3) Neutrophils # (Auto) 10.8 x10^3/uL (1.8-7.7) Lymphocytes # (Auto) 0.3 x10^3/uL (1.0-4.8) Monocytes # (Auto) 0.6 x10^3/uL (0.0-1.1) Eosinophils # (Auto) 0.0 x10^3/uL (0.0-0.7) Basophils # (Auto) 0.0 x10^3/uL (0.0-0.2) Sodium Level 139 mmol/L (136-145) Potassium Level 5.3 mmol/L (3.5-5.1) Chloride Level 106 mmol/L (98-107) Carbon Dioxide Level 27 mmol/L (21-32) Anion Gap 6 (6-14) Blood Urea Nitrogen 20 mg/dL (8-26) Creatinine 1.2 mg/dL (0.7-1.3) Estimated GFR (Cockcroft-Gault) 58.7 Glucose Level 122 mg/dL (70-99) Calcium Level 7.6 mg/dL (8.5-10.1) Assessment and Plan Assessmemt and Plan Problems Medical Problems: (1) Abdominal pain Status: Acute Comment Review of Relevant I have reviewed the following items jay (where applicable) has been applied. Medications: Current Medications Medications (Trade) Dose Ordered Sig/Minerva Route PRN Reason Start Time Stop Time Status Last Admin Dose Admin Ceftriaxone Sodium (Rocephin) 1 gm 1X PREOP IVP 01/04/21 09:00 01/04/21 09:48 Metronidazole 100 ml @ 100 mls/hr 1X PREOP IV 01/04/21 09:00 01/04/21 18:00 DC 01/04/21 09:49 Cellulose (Surgicel Hemostat 4x8) 1 each STK-MED ONCE .ROUTE 01/04/21 10:43 01/04/21 10:44 DC 01/04/21 09:42 Cellulose (Surgicel Hemostat 4x8) 1 each STK-MED ONCE .ROUTE 01/04/21 10:43 01/04/21 10:44 DC 01/04/21 09:42 Ringer's Solution 1,000 ml @ 100 mls/hr Q10H IV 01/04/21 12:00 01/05/21 02:03 Fentanyl Citrate 30 ml @ 0 mls/hr CONT PRN PRN IV PER PROTOCOL 01/04/21 11:30 01/04/21 13:27 Sodium Chloride 1,000 ml @ 25 mls/hr Q24H IV 01/04/21 12:00 01/04/21 21:13 Justifications for Admission Other Justification ADDY POTTER MD Jan 05, 2021 08:00
--- NOTE | 2021-01-05 08:22 | NUR ---
IV fluids (LR) nonadministered at this time. Previous bag still infusing. Refer to EMAR for further details.
[2021-01-05] MEDS: ASPIRIN CHEWABLE 81 MG TABLET. PO SCH (08:42)
[2021-01-05] MEDS: FUROSEMIDE 40 MG TABLET. PO SCH (08:42)
[2021-01-05] MEDS: POLYETHYLENE GLYCOL 3350 17 GM PACKET. PO SCH (08:42)
[2021-01-05] MEDS: PREGABALIN 75 MG CAPSULE PO SCH ×2 (08:42→21:00)
[2021-01-05] MEDS: ATORVASTATIN CALCIUM 10 MG TABLET. PO SCH (08:42)
[2021-01-05] MEDS: METOPROLOL SUCC 24HR ER 25 MG TAB.ER.24H. PO SCH (08:43)
[2021-01-05] MEDS: SERTRALINE 50 MG TABLET. PO SCH (08:43)
[2021-01-05] MEDS: LISINOPRIL 5 MG TABLET. PO SCH (08:43)
[2021-01-05] MEDS: IPRATROPIUM BROMIDE 0.06% NASAL SPRAY 15ML BOTTLE. NS SCH ×2 (08:59→21:00)
[2021-01-05] MEDS: BISACODYL 10 MG SUPP.RECT. PR SCH (09:00)
[2021-01-05] MEDS: SALIVA STIMULANT AGENT 44ML SPRAY BOTTLE. PO PRN ×2 (10:07→17:47)
--- NOTE | 2021-01-05 11:15 | PDOC ---
SRAVAN CASTRO PRISON PSYCHIATRIST 01/05/21 1115: CARDIO Progress Notes Date and Time Date of Service 01/05/21 Time of Evaluation 1115 Subjective Subjective: No Chest Pain, No shortness of breath, Other (sitting up in chair. No specific complaints ) Vitals Vitals Vital Signs Date Time Temp Pulse Resp B/P (MAP) Pulse Ox O2 Delivery O2 Flow Rate FiO2 01/05/21 11:00 68 118/72 (87) 98 Nasal Cannula 6.0 01/05/21 09:00 20 01/05/21 07:00 97.3 97.3 Weight Weight [ ] Input and Output Intake and Output Intake and Output 01/05/21 07:00 Intake Total 2067 ml Output Total 1985 ml Balance 82 ml Intake Oral 0 ml IV Total 1101 ml Blood Product IV Normal Saline Flush 966 ml Output Urine Total 1785 ml Estimated Blood Loss 200 ml Laboratory Labs Laboratory Tests Test 01/04/21 18:16 01/05/21 06:00 01/05/21 07:45 O2 Saturation 99 % (92-99) 98 % (92-99) Arterial Blood pH 7.32 (7.35-7.45) 7.36 (7.35-7.45) Arterial Blood pCO2 at Patient Temp 48 mmHg (35-46) 44 mmHg (35-46) Arterial Blood pO2 at Patient Temp 229 mmHg (65-108) 137 mmHg (65-108) Arterial Blood HCO3 24 mmol/L (21-28) 24 mmol/L (21-28) Arterial Blood Base Excess -2 mmol/L (-3-3) -1 mmol/L (-3-3) Oxyhemoglobin 97.9 % Methemoglobin 0.5 % (0.0-1.9) Carbon Monoxide, Quantitative 0.7 % (0.0-1.9) FiO2 100% bipap 50 bipap White Blood Count 11.7 x10^3/uL (4.0-11.0) Red Blood Count 3.16 x10^6/uL (4.30-5.70) Hemoglobin 7.7 g/dL (13.0-17.5) Hematocrit 25.8 % (39.0-53.0) Mean Corpuscular Volume 82 fL (79-100) Mean Corpuscular Hemoglobin 24 pg (25-35) Mean Corpuscular Hemoglobin Concent 30 g/dL (31-37) Red Cell Distribution Width 23.7 % (11.5-14.5) Platelet Count 124 x10^3/uL (140-400) Neutrophils (%) (Auto) 92 % (31-73) Lymphocytes (%) (Auto) 3 % (24-48) Monocytes (%) (Auto) 5 % (0-9) Eosinophils (%) (Auto) 0 % (0-3) Basophils (%) (Auto) 0 % (0-3) Neutrophils # (Auto) 10.8 x10^3/uL (1.8-7.7) Lymphocytes # (Auto) 0.3 x10^3/uL (1.0-4.8) Monocytes # (Auto) 0.6 x10^3/uL (0.0-1.1) Eosinophils # (Auto) 0.0 x10^3/uL (0.0-0.7) Basophils # (Auto) 0.0 x10^3/uL (0.0-0.2) Sodium Level 139 mmol/L (136-145) Potassium Level 5.3 mmol/L (3.5-5.1) Chloride Level 106 mmol/L (98-107) Carbon Dioxide Level 27 mmol/L (21-32) Anion Gap 6 (6-14) Blood Urea Nitrogen 20 mg/dL (8-26) Creatinine 1.2 mg/dL (0.7-1.3) Estimated GFR (Cockcroft-Gault) 58.7 Glucose Level 122 mg/dL (70-99) Calcium Level 7.6 mg/dL (8.5-10.1) Microbiology Micro Microbiology 12/29/20 Blood Culture - Final, Complete NO GROWTH AFTER 5 DAYS Physical Exam HEENT: Neck Supple W Full Motion Chest: Symmetric LUNGS: Clear to Auscultation Heart: other (vpaced with underlying AFIB ) Abdomen: Other (drsg intact ) Extremities: Other (trace bilateral LE edema ) Neurology: alert, oriented, follow commands Assessment Assessment 1 Mild acute on chronic systolic CHF; appears compensated 2. ICM: Echo 10/24 with LVEF 30-35%. 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 Device check 10/24 with normal function. stable lead impedances, adequate batter life at 20%. AFIB burden > 99%. 3. CAD: past CABG and PCI. Most recent PCI/stents 12/2015 as noted above. Clinically stable. 4. Anemia, coagulopathy; s/p transfusion 5. Colon CA with obstructing colonic mass; s/p open colon resection. POD#1. 6. Persistent AFIB; v-paced with underlying AFIB, rate controlled 7. Hypertension; controlled 8. Hyperlipidemia; statin 9. GRUPO on CKD; improved 10. COPD with home O2 use 11. Left cephalic vein thrombus Recommendations Continue secondary prevention measures as able IV metoprolol PRN for rate control while NPO Lasix PRN Supportive care Continue post-op management as per Justicifation of Admission Dx: Justifications for Admission: Justification of Admission Dx: Yes Respiratory Failure: Severe Resp Distress ERIC OROZCO MD 01/05/21 1356: CARDIO Progress Notes Assessment Assessment Patient seen and examined Is sitting in his bed and is alert and oriented. I agree with our nurse practitioners assessment and plan. Mild acute on chronic systolic CHF; compensated ICM: Echo 10/24 with LVEF 30-35%. 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 Device check 10/24 with normal function. stable lead impedances, adequate batter life at 20%. AFIB burden > 99%. CAD: past CABG and PCI. Most recent PCI/stents 12/2015 as noted above. Clinically stable. Colon CA with obstructing colonic mass; s/p open colon resection. POD#1. Persistent AFIB; v-paced with underlying AFIB, rate controlled Hypertension; controlled Hyperlipidemia; statin KI on CKD; improved COPD with home O2 use Left cephalic vein thrombus SRAVAN CASTRO APRN Jan 05, 2021 11:15 ERIC OROZCO MD Jan 05, 2021 13:56
--- NOTE | 2021-01-05 11:18 | PDOC ---
PULMONARY PROGRESS NOTES DATE: 01/05/21 TIME: 11:16 Subjective Patient not short of air. Currently on VM S/P LAP Vitals Vital Signs Date Time Temp Pulse Resp B/P (MAP) Pulse Ox O2 Delivery O2 Flow Rate FiO2 01/05/21 11:00 68 118/72 (87) 98 Nasal Cannula 6.0 01/05/21 09:00 20 01/05/21 07:00 97.3 97.3 ROS: No Nausea, No Chest Pain, No Abdominal Pain, No Increase Cough General: Alert, No acute distress HEENT: Other Lungs: Clear Cardiovascular: S1, S2 Abdomen: Soft, Non-tender Neuro Exam: Alert Extremities: Other (Edema) Skin: Warm Labs Laboratory Tests Test 01/03/21 15:12 01/04/21 18:16 01/05/21 06:00 01/05/21 07:45 White Blood Count 7.1 x10^3/uL (4.0-11.0) 11.7 x10^3/uL (4.0-11.0) Red Blood Count 3.73 x10^6/uL (4.30-5.70) 3.16 x10^6/uL (4.30-5.70) Hemoglobin 9.0 g/dL (13.0-17.5) 7.7 g/dL (13.0-17.5) Hematocrit 30.0 % (39.0-53.0) 25.8 % (39.0-53.0) Mean Corpuscular Volume 81 fL (79-100) 82 fL (79-100) Mean Corpuscular Hemoglobin 24 pg (25-35) 24 pg (25-35) Mean Corpuscular Hemoglobin Concent 30 g/dL (31-37) 30 g/dL (31-37) Red Cell Distribution Width 22.6 % (11.5-14.5) 23.7 % (11.5-14.5) Platelet Count 146 x10^3/uL (140-400) 124 x10^3/uL (140-400) Neutrophils (%) (Auto) 73 % (31-73) 92 % (31-73) Lymphocytes (%) (Auto) 12 % (24-48) 3 % (24-48) Monocytes (%) (Auto) 9 % (0-9) 5 % (0-9) Eosinophils (%) (Auto) 4 % (0-3) 0 % (0-3) Basophils (%) (Auto) 1 % (0-3) 0 % (0-3) Neutrophils # (Auto) 5.2 x10^3/uL (1.8-7.7) 10.8 x10^3/uL (1.8-7.7) Lymphocytes # (Auto) 0.9 x10^3/uL (1.0-4.8) 0.3 x10^3/uL (1.0-4.8) Monocytes # (Auto) 0.7 x10^3/uL (0.0-1.1) 0.6 x10^3/uL (0.0-1.1) Eosinophils # (Auto) 0.3 x10^3/uL (0.0-0.7) 0.0 x10^3/uL (0.0-0.7) Basophils # (Auto) 0.1 x10^3/uL (0.0-0.2) 0.0 x10^3/uL (0.0-0.2) Sodium Level 137 mmol/L (136-145) 139 mmol/L (136-145) Potassium Level 4.6 mmol/L (3.5-5.1) 5.3 mmol/L (3.5-5.1) Chloride Level 103 mmol/L (98-107) 106 mmol/L (98-107) Carbon Dioxide Level 25 mmol/L (21-32) 27 mmol/L (21-32) Anion Gap 9 (6-14) 6 (6-14) Blood Urea Nitrogen 15 mg/dL (8-26) 20 mg/dL (8-26) Creatinine 1.3 mg/dL (0.7-1.3) 1.2 mg/dL (0.7-1.3) Estimated GFR (Cockcroft-Gault) 53.5 58.7 BUN/Creatinine Ratio 12 (6-20) Glucose Level 76 mg/dL (70-99) 122 mg/dL (70-99) Calcium Level 8.0 mg/dL (8.5-10.1) 7.6 mg/dL (8.5-10.1) Total Bilirubin 1.7 mg/dL (0.2-1.0) Aspartate Amino Transf (AST/SGOT) 39 U/L (15-37) Alanine Aminotransferase (ALT/SGPT) 51 U/L (16-63) Alkaline Phosphatase 173 U/L (46-116) Total Protein 6.6 g/dL (6.4-8.2) Albumin 2.9 g/dL (3.4-5.0) Albumin/Globulin Ratio 0.8 (1.0-1.7) O2 Saturation 99 % (92-99) 98 % (92-99) Arterial Blood pH 7.32 (7.35-7.45) 7.36 (7.35-7.45) Arterial Blood pCO2 at Patient Temp 48 mmHg (35-46) 44 mmHg (35-46) Arterial Blood pO2 at Patient Temp 229 mmHg (65-108) 137 mmHg (65-108) Arterial Blood HCO3 24 mmol/L (21-28) 24 mmol/L (21-28) Arterial Blood Base Excess -2 mmol/L (-3-3) -1 mmol/L (-3-3) Oxyhemoglobin 97.9 % Methemoglobin 0.5 % (0.0-1.9) Carbon Monoxide, Quantitative 0.7 % (0.0-1.9) FiO2 100% bipap 50 bipap Laboratory Tests Test 01/04/21 18:16 01/05/21 06:00 01/05/21 07:45 O2 Saturation 99 % (92-99) 98 % (92-99) Arterial Blood pH 7.32 (7.35-7.45) 7.36 (7.35-7.45) Arterial Blood pCO2 at Patient Temp 48 mmHg (35-46) 44 mmHg (35-46) Arterial Blood pO2 at Patient Temp 229 mmHg (65-108) 137 mmHg (65-108) Arterial Blood HCO3 24 mmol/L (21-28) 24 mmol/L (21-28) Arterial Blood Base Excess -2 mmol/L (-3-3) -1 mmol/L (-3-3) Oxyhemoglobin 97.9 % Methemoglobin 0.5 % (0.0-1.9) Carbon Monoxide, Quantitative 0.7 % (0.0-1.9) FiO2 100% bipap 50 bipap White Blood Count 11.7 x10^3/uL (4.0-11.0) Red Blood Count 3.16 x10^6/uL (4.30-5.70) Hemoglobin 7.7 g/dL (13.0-17.5) Hematocrit 25.8 % (39.0-53.0) Mean Corpuscular Volume 82 fL (79-100) Mean Corpuscular Hemoglobin 24 pg (25-35) Mean Corpuscular Hemoglobin Concent 30 g/dL (31-37) Red Cell Distribution Width 23.7 % (11.5-14.5) Platelet Count 124 x10^3/uL (140-400) Neutrophils (%) (Auto) 92 % (31-73) Lymphocytes (%) (Auto) 3 % (24-48) Monocytes (%) (Auto) 5 % (0-9) Eosinophils (%) (Auto) 0 % (0-3) Basophils (%) (Auto) 0 % (0-3) Neutrophils # (Auto) 10.8 x10^3/uL (1.8-7.7) Lymphocytes # (Auto) 0.3 x10^3/uL (1.0-4.8) Monocytes # (Auto) 0.6 x10^3/uL (0.0-1.1) Eosinophils # (Auto) 0.0 x10^3/uL (0.0-0.7) Basophils # (Auto) 0.0 x10^3/uL (0.0-0.2) Sodium Level 139 mmol/L (136-145) Potassium Level 5.3 mmol/L (3.5-5.1) Chloride Level 106 mmol/L (98-107) Carbon Dioxide Level 27 mmol/L (21-32) Anion Gap 6 (6-14) Blood Urea Nitrogen 20 mg/dL (8-26) Creatinine 1.2 mg/dL (0.7-1.3) Estimated GFR (Cockcroft-Gault) 58.7 Glucose Level 122 mg/dL (70-99) Calcium Level 7.6 mg/dL (8.5-10.1) Medications Active Scripts Medications Dose Route/Sig Max Daily Dose Days Date Category Sertraline Hcl 50 Mg Tablet 50 Mg PO DAILY 12/29/20 Reported Budesonide 0.5 Mg/2 Ml Ampul.neb 1 Vial NEB BID 12/29/20 Reported Tudorza Pressair (Aclidinium [place]) 400 Mcg Aer.pow.ba 1 Puff IH BID 12/29/20 Reported Ipratropium [place] 0.2 Mg/1 Ml Solution 1 Vial NEB QID 12/29/20 Reported Klor-Con 10 (Potassium Chloride) 10 Meq Tablet.er 1 Tab PO DAILY 30 12/29/20 Reported Lyrica (Pregabalin) 75 Mg Capsule 1 Cap PO BID 12/29/20 Reported Lisinopril 5 Mg Tablet 5 Mg PO DAILY 10/17/20 Rx Senna Plus Tablet (Sennosides/Docusate Sodium) 1 Each Tablet 2 Tab PO QHS 14 10/01/20 Rx Ipratropium [place] 15 Ml Peever 2 Sprays NS BID 07/08/20 Reported Metoprolol Succinate ( Xl ) (Metoprolol Succinate) 25 Mg Tab.er.24h 1 Tab PO DAILY 30 07/08/20 Reported Pantoprazole Sodium 40 Mg Tablet.dr 1 Tab PO DAILY 30 07/08/20 Reported Gabapentin (Gabapentin) 300 Mg Capsule 300 Mg PO DAILYWSUP 06/30/19 Reported Aspirin 81 Mg Tab.chew 81 Mg PO DAILY 06/30/19 Reported Furosemide 40 Mg Tablet 40 Mg PO DAILY MDD 1 10/19/18 Rx Lovastatin 40 Mg Tablet 1 Tab PO DAILY 12/14/14 Reported Impression . IMPRESSION: 1. Chronic respiratory failure, multifactorial secondary to severe chronic obstructive pulmonary disease, coronary artery disease, previous coronary artery bypass grafting and deconditioning. 2. Cardiomyopathy, status post coronary artery bypass grafting. 3. Chronic atrial fibrillation. 4. Recent diagnosis of colon cancer. S/P open right colon resection, liver biopsy 5. Ascites 6. Cephalic vein thrombosis Plan . Respiratory status is compensated, WEAN fiO2 Continue oxygen supplementation Incentive spirometry Bronchodilators DVT FELIBERTO Naqvi MD Jan 05, 2021 11:18
--- NOTE | 2021-01-05 11:20 | PDOC ---
SURGICAL PROGRESS NOTE DATE: 01/05/21 TIME: 11:19 Subjective Pt without c/o, denies significant pain Vital Signs Vital Signs Date Time Temp Pulse Resp B/P (MAP) Pulse Ox O2 Delivery O2 Flow Rate FiO2 01/05/21 11:00 68 118/72 (87) 98 Nasal Cannula 6.0 01/05/21 09:00 20 01/05/21 07:00 97.3 97.3 I&O Intake and Output 01/05/21 07:00 Intake Total 2067 ml Output Total 1985 ml Balance 82 ml Intake Oral 0 ml IV Total 1101 ml Blood Product IV Normal Saline Flush 966 ml Output Urine Total 1785 ml Estimated Blood Loss 200 ml PATIENT HAS A MOTA: Yes General: Alert, Oriented X3, Cooperative, No acute distress Abdomen: Soft, No tenderness Labs Laboratory Tests Test 01/03/21 15:12 01/04/21 18:16 01/05/21 06:00 01/05/21 07:45 White Blood Count 7.1 x10^3/uL (4.0-11.0) 11.7 x10^3/uL (4.0-11.0) Red Blood Count 3.73 x10^6/uL (4.30-5.70) 3.16 x10^6/uL (4.30-5.70) Hemoglobin 9.0 g/dL (13.0-17.5) 7.7 g/dL (13.0-17.5) Hematocrit 30.0 % (39.0-53.0) 25.8 % (39.0-53.0) Mean Corpuscular Volume 81 fL (79-100) 82 fL (79-100) Mean Corpuscular Hemoglobin 24 pg (25-35) 24 pg (25-35) Mean Corpuscular Hemoglobin Concent 30 g/dL (31-37) 30 g/dL (31-37) Red Cell Distribution Width 22.6 % (11.5-14.5) 23.7 % (11.5-14.5) Platelet Count 146 x10^3/uL (140-400) 124 x10^3/uL (140-400) Neutrophils (%) (Auto) 73 % (31-73) 92 % (31-73) Lymphocytes (%) (Auto) 12 % (24-48) 3 % (24-48) Monocytes (%) (Auto) 9 % (0-9) 5 % (0-9) Eosinophils (%) (Auto) 4 % (0-3) 0 % (0-3) Basophils (%) (Auto) 1 % (0-3) 0 % (0-3) Neutrophils # (Auto) 5.2 x10^3/uL (1.8-7.7) 10.8 x10^3/uL (1.8-7.7) Lymphocytes # (Auto) 0.9 x10^3/uL (1.0-4.8) 0.3 x10^3/uL (1.0-4.8) Monocytes # (Auto) 0.7 x10^3/uL (0.0-1.1) 0.6 x10^3/uL (0.0-1.1) Eosinophils # (Auto) 0.3 x10^3/uL (0.0-0.7) 0.0 x10^3/uL (0.0-0.7) Basophils # (Auto) 0.1 x10^3/uL (0.0-0.2) 0.0 x10^3/uL (0.0-0.2) Sodium Level 137 mmol/L (136-145) 139 mmol/L (136-145) Potassium Level 4.6 mmol/L (3.5-5.1) 5.3 mmol/L (3.5-5.1) Chloride Level 103 mmol/L (98-107) 106 mmol/L (98-107) Carbon Dioxide Level 25 mmol/L (21-32) 27 mmol/L (21-32) Anion Gap 9 (6-14) 6 (6-14) Blood Urea Nitrogen 15 mg/dL (8-26) 20 mg/dL (8-26) Creatinine 1.3 mg/dL (0.7-1.3) 1.2 mg/dL (0.7-1.3) Estimated GFR (Cockcroft-Gault) 53.5 58.7 BUN/Creatinine Ratio 12 (6-20) Glucose Level 76 mg/dL (70-99) 122 mg/dL (70-99) Calcium Level 8.0 mg/dL (8.5-10.1) 7.6 mg/dL (8.5-10.1) Total Bilirubin 1.7 mg/dL (0.2-1.0) Aspartate Amino Transf (AST/SGOT) 39 U/L (15-37) Alanine Aminotransferase (ALT/SGPT) 51 U/L (16-63) Alkaline Phosphatase 173 U/L (46-116) Total Protein 6.6 g/dL (6.4-8.2) Albumin 2.9 g/dL (3.4-5.0) Albumin/Globulin Ratio 0.8 (1.0-1.7) O2 Saturation 99 % (92-99) 98 % (92-99) Arterial Blood pH 7.32 (7.35-7.45) 7.36 (7.35-7.45) Arterial Blood pCO2 at Patient Temp 48 mmHg (35-46) 44 mmHg (35-46) Arterial Blood pO2 at Patient Temp 229 mmHg (65-108) 137 mmHg (65-108) Arterial Blood HCO3 24 mmol/L (21-28) 24 mmol/L (21-28) Arterial Blood Base Excess -2 mmol/L (-3-3) -1 mmol/L (-3-3) Oxyhemoglobin 97.9 % Methemoglobin 0.5 % (0.0-1.9) Carbon Monoxide, Quantitative 0.7 % (0.0-1.9) FiO2 100% bipap 50 bipap Laboratory Tests Test 01/04/21 18:16 01/05/21 06:00 01/05/21 07:45 O2 Saturation 99 % (92-99) 98 % (92-99) Arterial Blood pH 7.32 (7.35-7.45) 7.36 (7.35-7.45) Arterial Blood pCO2 at Patient Temp 48 mmHg (35-46) 44 mmHg (35-46) Arterial Blood pO2 at Patient Temp 229 mmHg (65-108) 137 mmHg (65-108) Arterial Blood HCO3 24 mmol/L (21-28) 24 mmol/L (21-28) Arterial Blood Base Excess -2 mmol/L (-3-3) -1 mmol/L (-3-3) Oxyhemoglobin 97.9 % Methemoglobin 0.5 % (0.0-1.9) Carbon Monoxide, Quantitative 0.7 % (0.0-1.9) FiO2 100% bipap 50 bipap White Blood Count 11.7 x10^3/uL (4.0-11.0) Red Blood Count 3.16 x10^6/uL (4.30-5.70) Hemoglobin 7.7 g/dL (13.0-17.5) Hematocrit 25.8 % (39.0-53.0) Mean Corpuscular Volume 82 fL (79-100) Mean Corpuscular Hemoglobin 24 pg (25-35) Mean Corpuscular Hemoglobin Concent 30 g/dL (31-37) Red Cell Distribution Width 23.7 % (11.5-14.5) Platelet Count 124 x10^3/uL (140-400) Neutrophils (%) (Auto) 92 % (31-73) Lymphocytes (%) (Auto) 3 % (24-48) Monocytes (%) (Auto) 5 % (0-9) Eosinophils (%) (Auto) 0 % (0-3) Basophils (%) (Auto) 0 % (0-3) Neutrophils # (Auto) 10.8 x10^3/uL (1.8-7.7) Lymphocytes # (Auto) 0.3 x10^3/uL (1.0-4.8) Monocytes # (Auto) 0.6 x10^3/uL (0.0-1.1) Eosinophils # (Auto) 0.0 x10^3/uL (0.0-0.7) Basophils # (Auto) 0.0 x10^3/uL (0.0-0.2) Sodium Level 139 mmol/L (136-145) Potassium Level 5.3 mmol/L (3.5-5.1) Chloride Level 106 mmol/L (98-107) Carbon Dioxide Level 27 mmol/L (21-32) Anion Gap 6 (6-14) Blood Urea Nitrogen 20 mg/dL (8-26) Creatinine 1.2 mg/dL (0.7-1.3) Estimated GFR (Cockcroft-Gault) 58.7 Glucose Level 122 mg/dL (70-99) Calcium Level 7.6 mg/dL (8.5-10.1) Problem List Problems Medical Problems: (1) Abdominal pain Status: Acute Assessment/Plan s/p right colon await bowel fxn ice chips appreciate pulm Justicifation of Admission Dx: Justifications for Admission: Justification of Admission Dx: Yes Respiratory Failure: Severe Resp Distress MADDIE REYES MD Jan 05, 2021 11:20
[2021-01-05] MEDS: IV NORMAL SALINE 1000ML BAG 1,000 ML IV SCH (11:51)
--- NOTE | 2021-01-05 11:51 | NUR ---
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 Previous bag still infusing. Refer to EMAR for further details.
--- NOTE | 2021-01-05 11:53 | NUR ---
Per Dr. Cullen, pt okay to give ice chips.
[2021-01-05] MEDS ORDERED: METOPROLOL IV PUSH 5 MG/5 ML VIAL. IVP PRN (14:00)
--- NOTE | 2021-01-05 14:38 | NUR ---
SS following up with discharge planning. SS reviewed pt chart and discussed with pt RN. Pt is currently on nasal canula oxygen at six liters. Pt has home oxygen at home through [facility] and his baseline is normally four liters. Pt had [facility], ; fax [phone], at home. COVID19 negative. Pt had surgery on 01/04/2021. Pt NPO and on ice chips. PT/OT recommended prison unit on 01/03/2021. Pt will need updated PT/OT notes when ready to further assess needs. SS will continue to follow for discharge planning.
[2021-01-05] MEDS: GABAPENTIN 300 MG CAPSULE. PO SCH (16:09)
[2021-01-05] MEDS: ENOXAPARIN 40 MG/0.4 ML SYRINGE. SQ SCH (16:12)
[2021-01-05] MEDS: SENNOSIDES/DOCUSATE 8.6/50MG TABLET. PO SCH (21:00)
[2021-01-06] VITALS (24 sets, daily range): BP systolic 104–129; BP diastolic 54–72
[2021-01-06 07:19] LABS: CALCIUM 7.7 mg/dL (8.5-10.1); CREATININE 1.2 mg/dL (0.7-1.3); GFR 58.7; POTASSIUM 5.1 mmol/L (3.5-5.1)
[2021-01-06] MEDS: PREGABALIN 75 MG CAPSULE PO SCH ×2 (07:29→21:00)
[2021-01-06] MEDS: ASPIRIN CHEWABLE 81 MG TABLET. PO SCH (07:29)
[2021-01-06] MEDS: POTASSIUM CHLORIDE 10 MEQ TABLET.ER. PO SCH (07:29)
[2021-01-06] MEDS: POLYETHYLENE GLYCOL 3350 17 GM PACKET. PO SCH (07:29)
[2021-01-06] MEDS: FUROSEMIDE 40 MG TABLET. PO SCH (07:29)
[2021-01-06] MEDS: ATORVASTATIN CALCIUM 10 MG TABLET. PO SCH (07:29)
[2021-01-06] MEDS: PANTOPRAZOLE 40 MG TABLET.DR. PO SCH (07:29)
[2021-01-06] MEDS: METOPROLOL SUCC 24HR ER 25 MG TAB.ER.24H. PO SCH (07:30)
[2021-01-06] MEDS: LISINOPRIL 5 MG TABLET. PO SCH (07:30)
[2021-01-06] MEDS: BISACODYL 10 MG SUPP.RECT. PR SCH (07:30)
[2021-01-06] MEDS: SERTRALINE 50 MG TABLET. PO SCH (07:30)
--- NOTE | 2021-01-06 07:42 | PDOC ---
[employer] PROGRESS NOTE Date of Service DOS: DATE: 01/06/21 TIME: 07:40 Chief Complaint Chief Complaint Acute Abd pain, fluid overload colon cancer, plan resection 3.2, iron deficiency anemia, obese, BMI 32 weakness, debility depression, insomnia neuropathy History of Present Illness History of Present Illness On 15L facemask O2, up from home 4L. He is feeling well, asking to eat and drink. Still using his MANAGEMENT ADVISOR. IV protonix today 01/05: Seen in ICU. On facemask O2. He actually has bowel sounds is reasonably controlled abdominal pain with MANAGEMENT ADVISOR. His only complaint is dry mouth. 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 Transferred to ICU thereafter. 01/02: Patient seen and examined, sitting up and talkative. He has no new complaints 01/01: Issues swallowing liquids, ordering bedside swallow. He did take a drink and have a coughing fit during our conversation, says this happens frequently 12/31: Patient seen and examined. Discussed surgery date push back 12/30: Discussed CRC prognosis and he wanted a second opinion on the prognosis. Called Dr. Cullen who is willing to complete surgery if patient decides Vitals/I&O Vitals/I&O: Vital Signs Date Time Temp Pulse Resp B/P (MAP) Pulse Ox O2 Delivery O2 Flow Rate FiO2 01/06/21 07:00 98.0 70 13 115/59 (77) 95 Nasal Cannula 15.0 98.0 I & O 01/05/21 01/05/21 01/06/21 15:00 23:00 07:00 Intake Total 1000 ml 342.56 ml Output Total 230 ml 340 ml 230 ml Balance 770 ml 2.56 ml -230 ml Physical Exam General: Alert, Oriented X3, Cooperative, No acute distress Heart: Regular rate Lungs: Clear Abdomen: Soft, No tenderness Extremities: No clubbing, No cyanosis, Other (Mild edema) Skin: No rashes, Other (Bruising on arms) Labs Labs: Laboratory Tests Test 01/05/21 07:45 01/06/21 05:51 O2 Saturation 98 % (92-99) Arterial Blood pH 7.36 (7.35-7.45) Arterial Blood pCO2 at Patient Temp 44 mmHg (35-46) Arterial Blood pO2 at Patient Temp 137 mmHg (65-108) Arterial Blood HCO3 24 mmol/L (21-28) Arterial Blood Base Excess -1 mmol/L (-3-3) FiO2 50 bipap Sodium Level 140 mmol/L (136-145) Potassium Level 5.1 mmol/L (3.5-5.1) Chloride Level 106 mmol/L (98-107) Carbon Dioxide Level 27 mmol/L (21-32) Anion Gap 7 (6-14) Blood Urea Nitrogen 27 mg/dL (8-26) Creatinine 1.2 mg/dL (0.7-1.3) Estimated GFR (Cockcroft-Gault) 58.7 Glucose Level 91 mg/dL (70-99) Calcium Level 7.7 mg/dL (8.5-10.1) Assessment and Plan Assessmemt and Plan Problems Medical Problems: (1) Abdominal pain Status: Acute Comment Review of Relevant I have reviewed the following items jay (where applicable) has been applied. Medications: Current Medications Medications (Trade) Dose Ordered Sig/Minerva Route PRN Reason Start Time Stop Time Status Last Admin Dose Admin Saliva Substitute (Biotene Moisturizing Mouth) 2 spray PRN Q15MIN PRN PO DRY MOUTH 01/05/21 10:00 01/05/21 17:47 Justifications for Admission Other Justification ADDY POTTER MD Jan 06, 2021 07:42
[2021-01-06] MEDS: IPRATRPIUM/ALBUTEROL 0.5/2.5MG 3 ML NEBU. NEB SCH ×4 (07:55→19:09)
[2021-01-06] MEDS: BUDESONIDE 0.5 MG/2 ML NEBU. NEB SCH ×2 (07:55→19:10)
[2021-01-06] MEDS: IV RINGERS,LACTATED 1000ML 1,000 ML IV SCH ×3 (08:18→23:40)
[2021-01-06] MEDS: IPRATROPIUM BROMIDE 0.06% NASAL SPRAY 15ML BOTTLE. NS SCH ×2 (08:18→22:38)
[2021-01-06] MEDS ORDERED: PANTOPRAZOLE IV PUSH 40 MG VIAL. IVP ONE (08:30)
[2021-01-06] MEDS: IV NORMAL SALINE 1000ML BAG 1,000 ML IV SCH (10:30)
--- NOTE | 2021-01-06 10:43 | PDOC ---
PULMONARY PROGRESS NOTES DATE: 01/06/21 TIME: 10:42 Subjective Patient not short of air. Currently on VM S/P LAP Vitals Vital Signs Date Time Temp Pulse Resp B/P (MAP) Pulse Ox O2 Delivery O2 Flow Rate FiO2 01/06/21 10:31 98.0 69 11 118/62 (80) 95 98.0 01/06/21 09:57 Venturi Mask 01/06/21 08:00 15.0 ROS: No Nausea, No Chest Pain, No Abdominal Pain, No Increase Cough General: Alert, No acute distress HEENT: Other Lungs: Clear Cardiovascular: S1, S2 Abdomen: Soft, Non-tender Neuro Exam: Alert Extremities: Other (Edema) Skin: Warm Labs Laboratory Tests Test 01/04/21 18:16 01/05/21 06:00 01/05/21 07:45 01/06/21 05:51 O2 Saturation 99 % (92-99) 98 % (92-99) Arterial Blood pH 7.32 (7.35-7.45) 7.36 (7.35-7.45) Arterial Blood pCO2 at Patient Temp 48 mmHg (35-46) 44 mmHg (35-46) Arterial Blood pO2 at Patient Temp 229 mmHg (65-108) 137 mmHg (65-108) Arterial Blood HCO3 24 mmol/L (21-28) 24 mmol/L (21-28) Arterial Blood Base Excess -2 mmol/L (-3-3) -1 mmol/L (-3-3) Oxyhemoglobin 97.9 % Methemoglobin 0.5 % (0.0-1.9) Carbon Monoxide, Quantitative 0.7 % (0.0-1.9) FiO2 100% bipap 50 bipap White Blood Count 11.7 x10^3/uL (4.0-11.0) Red Blood Count 3.16 x10^6/uL (4.30-5.70) Hemoglobin 7.7 g/dL (13.0-17.5) Hematocrit 25.8 % (39.0-53.0) Mean Corpuscular Volume 82 fL (79-100) Mean Corpuscular Hemoglobin 24 pg (25-35) Mean Corpuscular Hemoglobin Concent 30 g/dL (31-37) Red Cell Distribution Width 23.7 % (11.5-14.5) Platelet Count 124 x10^3/uL (140-400) Neutrophils (%) (Auto) 92 % (31-73) Lymphocytes (%) (Auto) 3 % (24-48) Monocytes (%) (Auto) 5 % (0-9) Eosinophils (%) (Auto) 0 % (0-3) Basophils (%) (Auto) 0 % (0-3) Neutrophils # (Auto) 10.8 x10^3/uL (1.8-7.7) Lymphocytes # (Auto) 0.3 x10^3/uL (1.0-4.8) Monocytes # (Auto) 0.6 x10^3/uL (0.0-1.1) Eosinophils # (Auto) 0.0 x10^3/uL (0.0-0.7) Basophils # (Auto) 0.0 x10^3/uL (0.0-0.2) Sodium Level 139 mmol/L (136-145) 140 mmol/L (136-145) Potassium Level 5.3 mmol/L (3.5-5.1) 5.1 mmol/L (3.5-5.1) Chloride Level 106 mmol/L (98-107) 106 mmol/L (98-107) Carbon Dioxide Level 27 mmol/L (21-32) 27 mmol/L (21-32) Anion Gap 6 (6-14) 7 (6-14) Blood Urea Nitrogen 20 mg/dL (8-26) 27 mg/dL (8-26) Creatinine 1.2 mg/dL (0.7-1.3) 1.2 mg/dL (0.7-1.3) Estimated GFR (Cockcroft-Gault) 58.7 58.7 Glucose Level 122 mg/dL (70-99) 91 mg/dL (70-99) Calcium Level 7.6 mg/dL (8.5-10.1) 7.7 mg/dL (8.5-10.1) Laboratory Tests Test 01/06/21 05:51 Sodium Level 140 mmol/L (136-145) Potassium Level 5.1 mmol/L (3.5-5.1) Chloride Level 106 mmol/L (98-107) Carbon Dioxide Level 27 mmol/L (21-32) Anion Gap 7 (6-14) Blood Urea Nitrogen 27 mg/dL (8-26) Creatinine 1.2 mg/dL (0.7-1.3) Estimated GFR (Cockcroft-Gault) 58.7 Glucose Level 91 mg/dL (70-99) Calcium Level 7.7 mg/dL (8.5-10.1) Medications Active Scripts Medications Dose Route/Sig Max Daily Dose Days Date Category Sertraline Hcl 50 Mg Tablet 50 Mg PO DAILY 12/29/20 Reported Budesonide 0.5 Mg/2 Ml Ampul.neb 1 Vial NEB BID 12/29/20 Reported Tudorza Pressair (Aclidinium [place]) 400 Mcg Aer.pow.ba 1 Puff IH BID 12/29/20 Reported Ipratropium [place] 0.2 Mg/1 Ml Solution 1 Vial NEB QID 12/29/20 Reported Klor-Con 10 (Potassium Chloride) 10 Meq Tablet.er 1 Tab PO DAILY 30 12/29/20 Reported Lyrica (Pregabalin) 75 Mg Capsule 1 Cap PO BID 12/29/20 Reported Lisinopril 5 Mg Tablet 5 Mg PO DAILY 10/17/20 Rx Senna Plus Tablet (Sennosides/Docusate Sodium) 1 Each Tablet 2 Tab PO QHS 14 10/01/20 Rx Ipratropium [place] 15 Ml [place] 2 Sprays NS BID 07/08/20 Reported Metoprolol Succinate ( Xl ) (Metoprolol Succinate) 25 Mg Tab.er.24h 1 Tab PO DAILY 30 07/08/20 Reported Pantoprazole Sodium 40 Mg Tablet.dr 1 Tab PO DAILY 30 07/08/20 Reported Gabapentin (Gabapentin) 300 Mg Capsule 300 Mg PO DAILYWSUP 06/30/19 Reported Aspirin 81 Mg Tab.chew 81 Mg PO DAILY 06/30/19 Reported Furosemide 40 Mg Tablet 40 Mg PO DAILY MDD 1 10/19/18 Rx Lovastatin 40 Mg Tablet 1 Tab PO DAILY 12/14/14 Reported Impression . IMPRESSION: 1. Chronic respiratory failure, multifactorial secondary to severe chronic obstructive pulmonary disease, coronary artery disease, previous coronary artery bypass grafting and deconditioning. 2. Cardiomyopathy, status post coronary artery bypass grafting. 3. Chronic atrial fibrillation. 4. Recent diagnosis of colon cancer. S/P open right colon resection, liver biopsy 5. Ascites 6. Cephalic vein thrombosis Plan . Respiratory status is compensated, WEAN fiO2 Continue oxygen supplementation Incentive spirometry Bronchodilators DVT prophy surgery rec FELIBERTO RAMOS MD Jan 06, 2021 10:43
--- NOTE | 2021-01-06 11:53 | PDOC ---
SRAVAN CASTRO DATABASE SUPPORT 01/06/21 1153: CARDIO Progress Notes Date and Time Date of Service 01/06/21 Time of Evaluation 1150 Subjective Subjective: No Chest Pain, No shortness of breath, Other (s/o abdominal pain ) Vitals Vitals Vital Signs Date Time Temp Pulse Resp B/P (MAP) Pulse Ox O2 Delivery O2 Flow Rate FiO2 01/06/21 10:31 98.0 69 11 118/62 (80) 95 98.0 01/06/21 09:57 Venturi Mask 01/06/21 08:00 15.0 Weight Weight [ ] Input and Output Intake and Output Intake and Output 01/06/21 07:00 Intake Total 1342.56 ml Output Total 800 ml Balance 542.56 ml Intake Oral 0 ml IV Total 1342.56 ml Output Urine Total 800 ml Laboratory Labs Laboratory Tests Test 01/06/21 05:51 Sodium Level 140 mmol/L (136-145) Potassium Level 5.1 mmol/L (3.5-5.1) Chloride Level 106 mmol/L (98-107) Carbon Dioxide Level 27 mmol/L (21-32) Anion Gap 7 (6-14) Blood Urea Nitrogen 27 mg/dL (8-26) Creatinine 1.2 mg/dL (0.7-1.3) Estimated GFR (Cockcroft-Gault) 58.7 Glucose Level 91 mg/dL (70-99) Calcium Level 7.7 mg/dL (8.5-10.1) Microbiology Micro Microbiology 12/29/20 Blood Culture - Final, Complete NO GROWTH AFTER 5 DAYS Physical Exam HEENT: Neck Supple W Full Motion Chest: Symmetric LUNGS: Clear to Auscultation Heart: other (vpaced with underlying AFIB ) Abdomen: Other (drsg intact ) Extremities: Other (trace bilateral LE edema ) Neurology: alert, oriented, follow commands Assessment Assessment 1 Mild acute on chronic systolic CHF; appears compensated 2. ICM: Echo 10/24 with LVEF 30-35%. S/p GENERATOR REBUILDER-D (St Tim). Device check 10/24 with normal function. stable lead impedances, adequate batter life at 20%. AFIB burden > 99%. 3. CAD: past CABG and PCI. Most recent PCI/stents 12/2015 as noted above. Clinically stable. 4. Anemia, coagulopathy; s/p transfusion 5. Colon CA with obstructing colonic mass; s/p open colon resection. POD#2. 6. Persistent AFIB; v-paced with underlying AFIB, rate controlled 7. Hypertension; controlled 8. Hyperlipidemia; statin 9. GRUPO on CKD; improved 10. COPD with home O2 use 11. Left cephalic vein thrombus Recommendations Continue secondary prevention measures as able IV metoprolol for rate control while NPO Not on OAC due to past fall, hemorrhage, and anemia Lasix PRN Supportive care Continue post-op management as per Justicifation of Admission Dx: Justifications for Admission: Justification of Admission Dx: Yes Respiratory Failure: Severe Resp Distress ERIC OROZCO MD 01/06/21 1548: CARDIO Progress Notes Assessment Assessment Patient seen and evaluated I agree with our nurse practitioners assessment and plan as above. ICM: Echo 10/24 with LVEF 30-35%. S/p GENERATOR REBUILDER-D (St Tim). Device check 10/24 with normal function. stable lead impedances, adequate batter life at 20%. AFIB burden > 99%. CAD: past CABG and PCI. Most recent PCI/stents 12/2015 as noted above. Clinically stable. Colon CA with obstructing colonic mass; s/p open colon resection. POD#2. As per surgery. Persistent AFIB; v-paced with underlying AFIB, rate controlled Hypertension; controlled Hyperlipidemia; statin GRUPO on CKD; improved COPD with home O2 use Left cephalic vein thrombus SRAVAN CASTRO APRN Jan 06, 2021 11:53 ERIC OROZCO MD Jan 06, 2021 15:48
--- NOTE | 2021-01-06 14:28 | NUR ---
SS following up with discharge planning. SS reviewed pt chart and discussed with pt RN. Pt is currently on the venturi mask at fifteen liters. COVID19 negative. PT/OT ordered to reassess for needs. Pt has GLASS CURVATURE GAUGER and IV Protonix. NPO and on ice chips. SS will continue to follow for discharge planning.
[2021-01-06] MEDS: ENOXAPARIN 40 MG/0.4 ML SYRINGE. SQ SCH ×2 (16:00→18:19)
[2021-01-06] MEDS: GABAPENTIN 300 MG CAPSULE. PO SCH (17:00)
[2021-01-06] MEDS: METOPROLOL IV PUSH 5 MG/5 ML VIAL. IVP SCH (18:00)
--- NOTE | 2021-01-06 18:28 | PDOC ---
SURGICAL PROGRESS NOTE DATE: 01/06/21 TIME: 18:25 Subjective Pt with c/o spasm pain, no N/V Vital Signs Vital Signs Date Time Temp Pulse Resp B/P (MAP) Pulse Ox O2 Delivery O2 Flow Rate FiO2 01/06/21 18:00 69 105/58 01/06/21 18:00 10 92 Nasal Cannula 5.0 01/06/21 17:00 98.2 98.2 I&O Intake and Output 01/06/21 06:59 Intake Total 1342.56 ml Output Total 800 ml Balance 542.56 ml Intake Oral 0 ml IV Total 1342.56 ml Output Urine Total 800 ml General: Alert, Oriented X3, Cooperative, mild distress Abdomen: Soft, No tenderness, Other (dressing intact) Labs Laboratory Tests Test 01/05/21 06:00 01/05/21 07:45 01/06/21 05:51 White Blood Count 11.7 x10^3/uL (4.0-11.0) Red Blood Count 3.16 x10^6/uL (4.30-5.70) Hemoglobin 7.7 g/dL (13.0-17.5) Hematocrit 25.8 % (39.0-53.0) Mean Corpuscular Volume 82 fL (79-100) Mean Corpuscular Hemoglobin 24 pg (25-35) Mean Corpuscular Hemoglobin Concent 30 g/dL (31-37) Red Cell Distribution Width 23.7 % (11.5-14.5) Platelet Count 124 x10^3/uL (140-400) Neutrophils (%) (Auto) 92 % (31-73) Lymphocytes (%) (Auto) 3 % (24-48) Monocytes (%) (Auto) 5 % (0-9) Eosinophils (%) (Auto) 0 % (0-3) Basophils (%) (Auto) 0 % (0-3) Neutrophils # (Auto) 10.8 x10^3/uL (1.8-7.7) Lymphocytes # (Auto) 0.3 x10^3/uL (1.0-4.8) Monocytes # (Auto) 0.6 x10^3/uL (0.0-1.1) Eosinophils # (Auto) 0.0 x10^3/uL (0.0-0.7) Basophils # (Auto) 0.0 x10^3/uL (0.0-0.2) Sodium Level 139 mmol/L (136-145) 140 mmol/L (136-145) Potassium Level 5.3 mmol/L (3.5-5.1) 5.1 mmol/L (3.5-5.1) Chloride Level 106 mmol/L (98-107) 106 mmol/L (98-107) Carbon Dioxide Level 27 mmol/L (21-32) 27 mmol/L (21-32) Anion Gap 6 (6-14) 7 (6-14) Blood Urea Nitrogen 20 mg/dL (8-26) 27 mg/dL (8-26) Creatinine 1.2 mg/dL (0.7-1.3) 1.2 mg/dL (0.7-1.3) Estimated GFR (Cockcroft-Gault) 58.7 58.7 Glucose Level 122 mg/dL (70-99) 91 mg/dL (70-99) Calcium Level 7.6 mg/dL (8.5-10.1) 7.7 mg/dL (8.5-10.1) O2 Saturation 98 % (92-99) Arterial Blood pH 7.36 (7.35-7.45) Arterial Blood pCO2 at Patient Temp 44 mmHg (35-46) Arterial Blood pO2 at Patient Temp 137 mmHg (65-108) Arterial Blood HCO3 24 mmol/L (21-28) Arterial Blood Base Excess -1 mmol/L (-3-3) FiO2 50 bipap Laboratory Tests Test 01/06/21 05:51 Sodium Level 140 mmol/L (136-145) Potassium Level 5.1 mmol/L (3.5-5.1) Chloride Level 106 mmol/L (98-107) Carbon Dioxide Level 27 mmol/L (21-32) Anion Gap 7 (6-14) Blood Urea Nitrogen 27 mg/dL (8-26) Creatinine 1.2 mg/dL (0.7-1.3) Estimated GFR (Cockcroft-Gault) 58.7 Glucose Level 91 mg/dL (70-99) Calcium Level 7.7 mg/dL (8.5-10.1) Problem List Problems Medical Problems: (1) Abdominal pain Status: Acute Assessment/Plan s/p right colon cont pain control await bowel fxn Justicifation of Admission Dx: Justifications for Admission: Justification of Admission Dx: Yes Respiratory Failure: Severe Resp Distress MADDIE ERYES MD Jan 06, 2021 18:28
[2021-01-06] MEDS: SENNOSIDES/DOCUSATE 8.6/50MG TABLET. PO SCH (21:00)
[2021-01-07] VITALS (13 sets, daily range): BP systolic 94–126; BP diastolic 59–69
[2021-01-07 04:26] LABS: BASO % 1 % (0-3); EOS # 0.1 x10^3/uL (0.0-0.7); EOS % 1 % (0-3); HEMATOCRIT 26.6 % (39.0-53.0); HEMOGLOBIN 7.9 g/dL (13.0-17.5); LYMPH # 0.5 x10^3/uL (1.0-4.8); LYMPH % 7 % (24-48); MEAN CORPUSCULAR HEMOGLOBIN 24 pg (25-35); MEAN CORPUSCULAR HGB CONC 30 g/dL (31-37); MEAN CORPUSCULAR VOLUME 82 fL (79-100); MONO # 0.7 x10^3/uL (0.0-1.1); MONO % 9 % (0-9); NEUT # 6.2 x10^3/uL (1.8-7.7); NEUT % 83 % (31-73); PLATELET COUNT 121 x10^3/uL (140-400); RED BLOOD COUNT 3.24 x10^6/uL (4.30-5.70); RED CELL DISTRIBUTION WIDTH 25.1 % (11.5-14.5); WHITE BLOOD COUNT 7.5 x10^3/uL (4.0-11.0)
[2021-01-07] MEDS: METOPROLOL IV PUSH 5 MG/5 ML VIAL. IVP SCH ×4 (06:00→17:20)
[2021-01-07] MEDS: PANTOPRAZOLE 40 MG TABLET.DR. PO SCH (06:54)
[2021-01-07] MEDS: FUROSEMIDE 40 MG TABLET. PO SCH (07:59)
[2021-01-07] MEDS: PREGABALIN 75 MG CAPSULE PO SCH ×2 (07:59→20:52)
[2021-01-07] MEDS: POTASSIUM CHLORIDE 10 MEQ TABLET.ER. PO SCH (07:59)
[2021-01-07] MEDS: ASPIRIN CHEWABLE 81 MG TABLET. PO SCH (07:59)
[2021-01-07] MEDS: ATORVASTATIN CALCIUM 10 MG TABLET. PO SCH (07:59)
[2021-01-07] MEDS: METOPROLOL SUCC 24HR ER 25 MG TAB.ER.24H. PO SCH (08:00)
[2021-01-07] MEDS: POLYETHYLENE GLYCOL 3350 17 GM PACKET. PO SCH (08:00)
[2021-01-07] MEDS: LISINOPRIL 5 MG TABLET. PO SCH (08:00)
[2021-01-07] MEDS: SERTRALINE 50 MG TABLET. PO SCH (08:00)
[2021-01-07] MEDS: BISACODYL 10 MG SUPP.RECT. PR SCH (08:00)
[2021-01-07] MEDS: IPRATRPIUM/ALBUTEROL 0.5/2.5MG 3 ML NEBU. NEB SCH ×4 (08:14→19:46)
[2021-01-07] MEDS: BUDESONIDE 0.5 MG/2 ML NEBU. NEB SCH ×2 (08:14→19:46)
[2021-01-07] MEDS: IPRATROPIUM BROMIDE 0.06% NASAL SPRAY 15ML BOTTLE. NS SCH ×2 (09:00→22:24)
[2021-01-07] MEDS: IV RINGERS,LACTATED 1000ML 1,000 ML IV SCH ×2 (09:03→22:26)
--- NOTE | 2021-01-07 10:27 | PDOC ---
PULMONARY PROGRESS NOTES DATE: 01/07/21 TIME: 10:26 Subjective Patient not short of air. Currently on nasal canula S/P LAP Vitals Vital Signs Date Time Temp Pulse Resp B/P (MAP) Pulse Ox O2 Delivery O2 Flow Rate FiO2 01/07/21 08:22 96 Nasal Cannula 5.0 01/07/21 07:00 68 14 126/66 (86) 01/07/21 00:00 98.2 98.2 ROS: No Nausea, No Chest Pain, No Abdominal Pain, No Increase Cough General: Alert, No acute distress HEENT: Other Lungs: Clear Cardiovascular: S1, S2 Abdomen: Soft, Non-tender Neuro Exam: Alert Extremities: Other (Edema) Skin: Warm Labs Laboratory Tests Test 01/06/21 05:51 01/07/21 03:30 Sodium Level 140 mmol/L (136-145) Potassium Level 5.1 mmol/L (3.5-5.1) Chloride Level 106 mmol/L (98-107) Carbon Dioxide Level 27 mmol/L (21-32) Anion Gap 7 (6-14) Blood Urea Nitrogen 27 mg/dL (8-26) Creatinine 1.2 mg/dL (0.7-1.3) Estimated GFR (Cockcroft-Gault) 58.7 Glucose Level 91 mg/dL (70-99) Calcium Level 7.7 mg/dL (8.5-10.1) White Blood Count 7.5 x10^3/uL (4.0-11.0) Red Blood Count 3.24 x10^6/uL (4.30-5.70) Hemoglobin 7.9 g/dL (13.0-17.5) Hematocrit 26.6 % (39.0-53.0) Mean Corpuscular Volume 82 fL (79-100) Mean Corpuscular Hemoglobin 24 pg (25-35) Mean Corpuscular Hemoglobin Concent 30 g/dL (31-37) Red Cell Distribution Width 25.1 % (11.5-14.5) Platelet Count 121 x10^3/uL (140-400) Neutrophils (%) (Auto) 83 % (31-73) Lymphocytes (%) (Auto) 7 % (24-48) Monocytes (%) (Auto) 9 % (0-9) Eosinophils (%) (Auto) 1 % (0-3) Basophils (%) (Auto) 1 % (0-3) Neutrophils # (Auto) 6.2 x10^3/uL (1.8-7.7) Lymphocytes # (Auto) 0.5 x10^3/uL (1.0-4.8) Monocytes # (Auto) 0.7 x10^3/uL (0.0-1.1) Eosinophils # (Auto) 0.1 x10^3/uL (0.0-0.7) Basophils # (Auto) 0.0 x10^3/uL (0.0-0.2) Laboratory Tests Test 01/07/21 03:30 White Blood Count 7.5 x10^3/uL (4.0-11.0) Red Blood Count 3.24 x10^6/uL (4.30-5.70) Hemoglobin 7.9 g/dL (13.0-17.5) Hematocrit 26.6 % (39.0-53.0) Mean Corpuscular Volume 82 fL (79-100) Mean Corpuscular Hemoglobin 24 pg (25-35) Mean Corpuscular Hemoglobin Concent 30 g/dL (31-37) Red Cell Distribution Width 25.1 % (11.5-14.5) Platelet Count 121 x10^3/uL (140-400) Neutrophils (%) (Auto) 83 % (31-73) Lymphocytes (%) (Auto) 7 % (24-48) Monocytes (%) (Auto) 9 % (0-9) Eosinophils (%) (Auto) 1 % (0-3) Basophils (%) (Auto) 1 % (0-3) Neutrophils # (Auto) 6.2 x10^3/uL (1.8-7.7) Lymphocytes # (Auto) 0.5 x10^3/uL (1.0-4.8) Monocytes # (Auto) 0.7 x10^3/uL (0.0-1.1) Eosinophils # (Auto) 0.1 x10^3/uL (0.0-0.7) Basophils # (Auto) 0.0 x10^3/uL (0.0-0.2) Medications Active Scripts Medications Dose Route/Sig Max Daily Dose Days Date Category Sertraline Hcl 50 Mg Tablet 50 Mg PO DAILY 12/29/20 Reported Budesonide 0.5 Mg/2 Ml Ampul.neb 1 Vial NEB BID 12/29/20 Reported Tudorza Pressair (Aclidinium Zenda) 400 Mcg Aer.pow.ba 1 Puff IH BID 12/29/20 Reported Ipratropium Zenda 0.2 Mg/1 Ml Solution 1 Vial NEB QID 12/29/20 Reported Klor-Con 10 (Potassium Chloride) 10 Meq Tablet.er 1 Tab PO DAILY 30 12/29/20 Reported Lyrica (Pregabalin) 75 Mg Capsule 1 Cap PO BID 12/29/20 Reported Lisinopril 5 Mg Tablet 5 Mg PO DAILY 10/17/20 Rx Senna Plus Tablet (Sennosides/Docusate Sodium) 1 Each Tablet 2 Tab PO QHS 14 10/01/20 Rx Ipratropium Zenda 15 Ml Mylo 2 Sprays NS BID 07/08/20 Reported Metoprolol Succinate ( Xl ) (Metoprolol Succinate) 25 Mg Tab.er.24h 1 Tab PO DAILY 30 07/08/20 Reported Pantoprazole Sodium 40 Mg Tablet.dr 1 Tab PO DAILY 30 07/08/20 Reported Gabapentin (Gabapentin) 300 Mg Capsule 300 Mg PO DAILYWSUP 06/30/19 Reported Aspirin 81 Mg Tab.chew 81 Mg PO DAILY 06/30/19 Reported Furosemide 40 Mg Tablet 40 Mg PO DAILY MDD 1 10/19/18 Rx Lovastatin 40 Mg Tablet 1 Tab PO DAILY 12/14/14 Reported Impression . IMPRESSION: 1. Chronic respiratory failure, multifactorial secondary to severe chronic obstructive pulmonary disease, coronary artery disease, previous coronary artery bypass grafting and deconditioning. 2. Cardiomyopathy, status post coronary artery bypass grafting. 3. Chronic atrial fibrillation. 4. Recent diagnosis of colon cancer. S/P open right colon resection, liver biopsy 5. Ascites 6. Cephalic vein thrombosis Plan . Respiratory status is compensated, WEAN fiO2 Continue oxygen supplementation Incentive spirometry Bronchodilators DVT prophy surgery rec TPN per surgery FELIBERTO RAMOS MD Jan 07, 2021 10:27
--- NOTE | 2021-01-07 10:42 | PDOC ---
CARDIO Progress Notes Date and Time Date of Service 01/07/2021 Time of Evaluation 1010 Subjective Subjective: No Chest Pain, No shortness of breath, No Palpitations Vitals Vitals Vital Signs Date Time Temp Pulse Resp B/P (MAP) Pulse Ox O2 Delivery O2 Flow Rate FiO2 01/07/21 08:22 96 Nasal Cannula 5.0 01/07/21 07:00 68 14 126/66 (86) 01/07/21 00:00 98.2 98.2 Weight Weight [ ] Input and Output Intake and Output Intake and Output 01/07/21 07:00 Intake Total 3832.5 ml Output Total 910 ml Balance 2922.5 ml Intake Oral 0 ml IV Total 3832.5 ml Output Urine Total 910 ml Laboratory Labs Laboratory Tests Test 01/07/21 03:30 White Blood Count 7.5 x10^3/uL (4.0-11.0) Red Blood Count 3.24 x10^6/uL (4.30-5.70) Hemoglobin 7.9 g/dL (13.0-17.5) Hematocrit 26.6 % (39.0-53.0) Mean Corpuscular Volume 82 fL (79-100) Mean Corpuscular Hemoglobin 24 pg (25-35) Mean Corpuscular Hemoglobin Concent 30 g/dL (31-37) Red Cell Distribution Width 25.1 % (11.5-14.5) Platelet Count 121 x10^3/uL (140-400) Neutrophils (%) (Auto) 83 % (31-73) Lymphocytes (%) (Auto) 7 % (24-48) Monocytes (%) (Auto) 9 % (0-9) Eosinophils (%) (Auto) 1 % (0-3) Basophils (%) (Auto) 1 % (0-3) Neutrophils # (Auto) 6.2 x10^3/uL (1.8-7.7) Lymphocytes # (Auto) 0.5 x10^3/uL (1.0-4.8) Monocytes # (Auto) 0.7 x10^3/uL (0.0-1.1) Eosinophils # (Auto) 0.1 x10^3/uL (0.0-0.7) Basophils # (Auto) 0.0 x10^3/uL (0.0-0.2) Microbiology Micro Microbiology 2/24/21 Blood Culture - Final, Complete NO GROWTH AFTER 5 DAYS Physical Exam HEENT: Neck Supple W Full Motion Chest: Symmetric LUNGS: Clear to Auscultation Heart: other (vpaced with underlying AFIB ) Abdomen: Other (drsg intact ) Extremities: Other (1+ bilateral LE pitting edema) Neurology: alert, oriented, follow commands Assessment Assessment 1 Mild acute on chronic systolic CHF; appears compensated 2. ICM: Echo 10/24 with LVEF 30-35%. S/p ED PHYSICIANS-D ([facility]). Device check 10/24 with normal function. stable lead impedances, adequate batter life at 20%. AFIB burden > 99%. 3. CAD: past CABG and PCI. Most recent PCI/stents 12/2015 as noted above. Clinically stable. 4. Anemia, coagulopathy; s/p transfusion Hgb 7.9 5. Colon CA with obstructing colonic mass; s/p open colon resection. POD#3. 6. Persistent AFIB; v-paced with underlying AFIB, rate controlled 7. Hypertension; controlled 8. Hyperlipidemia; statin 9. GRUPO on CKD; back to baseline 10. COPD with home O2 use 11. Left cephalic vein thrombus: per PCP Recommendations 1. Continue secondary prevention measures as able. On lovenox for VTE prophylaxis. Start on ASA when able to take PO for stroke prevention 2. IV metoprolol for rate control while NPO 3. Not on OAC due to past fall, hemorrhage, and anemia 4. Start lasix 5. Supportive care 6. Continue post-op management as per Justicifation of Admission Dx: Justifications for Admission: Justification of Admission Dx: Yes Respiratory Failure: Severe Resp Distress CAMILLE MÉNDEZ APRN Jan 07, 2021 10:42
[2021-01-07] MEDS ORDERED: FUROSEMIDE 40 MG/4 ML VIAL. IVP ONE (10:45)
[2021-01-07 11:03] LABS: CALCIUM 7.5 mg/dL (8.5-10.1); CREATININE 1.2 mg/dL (0.7-1.3); GFR 58.7; MAGNESIUM 2.6 mg/dL (1.8-2.4); POTASSIUM 5.1 mmol/L (3.5-5.1)
[2021-01-07] MEDS: IV NORMAL SALINE 1000ML BAG 1,000 ML IV SCH (11:56)
--- NOTE | 2021-01-07 12:59 | PDOC ---
[facility] PROGRESS NOTE Date of Service DOS: DATE: 01/07/21 TIME: 12:58 Chief Complaint Chief Complaint Acute Abd pain, fluid overload colon cancer, plan resection 3.2, iron deficiency anemia, obese, BMI 32 weakness, debility depression, insomnia neuropathy History of Present Illness History of Present Illness 4 L nasal cannula O2. Afebrile. Sit up in chair. Pain is still intermittent. Even with ice chips he is getting some esophageal spasm and pain. Not passing flatus currently. Feeling well overall. Hb 7.9, CR 1.2. Okay to transfer out of ICU. 01/06: On 15L facemask O2, up from home 4L. He is feeling well, asking to eat and drink. Still using his [employer] MAPPING. IV protonix today 01/05: Seen in ICU. On facemask O2. He actually has bowel sounds is reasonably controlled abdominal pain with SUPER[employer]PING. His only complaint is dry mouth. 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 Transferred to ICU thereafter. 01/02: Patient seen and examined, sitting up and talkative. He has no new complaints 01/01: Issues swallowing liquids, ordering bedside swallow. He did take a drink and have a coughing fit during our conversation, says this happens frequently 12/31: Patient seen and examined. Discussed surgery date push back 12/30: Discussed CRC prognosis and he wanted a second opinion on the prognosis. Called Dr. Cullen who is willing to complete surgery if patient decides Vitals/I&O Vitals/I&O: Vital Signs Date Time Temp Pulse Resp B/P (MAP) Pulse Ox O2 Delivery O2 Flow Rate FiO2 01/07/21 11:45 74 115/63 01/07/21 11:23 96 Nasal Cannula 5.0 01/07/21 11:00 14 01/07/21 08:00 97.8 97.8 I & O 01/06/21 01/06/21 01/07/21 15:00 23:00 07:00 Intake Total 0 ml 2617.5 ml 1215 ml Output Total 290 ml 270 ml 350 ml Balance -290 ml 2347.5 ml 865 ml Physical Exam General: Alert, Oriented X3, Cooperative, mild distress Heart: Regular rate Lungs: Clear Abdomen: Soft, No tenderness, Other (dressing intact) Extremities: No clubbing, No cyanosis, Other (Mild edema) Skin: No rashes, Other (Bruising on arms) Labs Labs: Laboratory Tests Test 01/07/21 03:30 White Blood Count 7.5 x10^3/uL (4.0-11.0) Red Blood Count 3.24 x10^6/uL (4.30-5.70) Hemoglobin 7.9 g/dL (13.0-17.5) Hematocrit 26.6 % (39.0-53.0) Mean Corpuscular Volume 82 fL (79-100) Mean Corpuscular Hemoglobin 24 pg (25-35) Mean Corpuscular Hemoglobin Concent 30 g/dL (31-37) Red Cell Distribution Width 25.1 % (11.5-14.5) Platelet Count 121 x10^3/uL (140-400) Neutrophils (%) (Auto) 83 % (31-73) Lymphocytes (%) (Auto) 7 % (24-48) Monocytes (%) (Auto) 9 % (0-9) Eosinophils (%) (Auto) 1 % (0-3) Basophils (%) (Auto) 1 % (0-3) Neutrophils # (Auto) 6.2 x10^3/uL (1.8-7.7) Lymphocytes # (Auto) 0.5 x10^3/uL (1.0-4.8) Monocytes # (Auto) 0.7 x10^3/uL (0.0-1.1) Eosinophils # (Auto) 0.1 x10^3/uL (0.0-0.7) Basophils # (Auto) 0.0 x10^3/uL (0.0-0.2) Sodium Level 144 mmol/L (136-145) Potassium Level 5.1 mmol/L (3.5-5.1) Chloride Level 110 mmol/L (98-107) Carbon Dioxide Level 26 mmol/L (21-32) Anion Gap 8 (6-14) Blood Urea Nitrogen 33 mg/dL (8-26) Creatinine 1.2 mg/dL (0.7-1.3) Estimated GFR (Cockcroft-Gault) 58.7 Glucose Level 88 mg/dL (70-99) Calcium Level 7.5 mg/dL (8.5-10.1) Magnesium Level 2.6 mg/dL (1.8-2.4) Assessment and Plan Assessmemt and Plan Problems Medical Problems: (1) Abdominal pain Status: Acute Comment Review of Relevant I have reviewed the following items jay (where applicable) has been applied. Medications: Current Medications Medications (Trade) Dose Ordered Sig/Minerva Route PRN Reason Start Time Stop Time Status Last Admin Dose Admin Metoprolol Tartrate (Lopressor Vial) 2.5 mg Q6HRS IVP 01/06/21 18:00 01/07/21 11:45 Furosemide (Lasix) 40 mg 1X ONCE IVP 01/07/21 10:45 01/07/21 10:46 DC 01/07/21 10:50 Justifications for Admission Other Justification ADDY POTTER MD Jan 07, 2021 12:59
--- NOTE | 2021-01-07 13:02 | PATHOLOGY ---
[facility] Accession Number: [id number] . 01 Material submitted: . PART A: colon - RIGHT COLON. Modifiers: right PART B: liver - LIVER MASS . 01 Clinical history: . RIGHT COLON RESECTION COLON MASS . 02 Frozen section diagnosis: . INTRAOPERATIVE CONSULTATION WITH GROSS IMPRESSION: (Dr. Marshall Pereyra) . A. Distal ileum, cecum, ascending colon and proximal transverse colon with attached mesocolon and omentum, extended right colon resection: - Ulcerated carcinoma of ascending colon - margins of resection grossly free of neoplasm. . The results are displayed to Dr. Cullen in the operating room. The specimen is fixed in formalin prior to additional sectioning. (JPM:mml; 01/04/2021) . . INTRAOPERATIVE GROSS DESCRIPTION: A. Received fresh for intraoperative consultation and designated "right colon", is a short segment of distal ileum, cecum, ascending colon, and proximal transverse colon with attached mesocolon and portion of omentum. The segment is stapled closed at both ends. The distal ileum measures approximately 6.5 cm in length. The cecum, ascending colon, and proximal transverse colon measure up to 38.0 cm in length. Attached to the base of the cecum is an appendix measuring 9.0 cm in length and 0.6 cm in diameter. The attached mesocolon measures up to 9.0 cm in depth. There is an attached portion of omentum measuring up to 14.5 x 12.5 cm. The serosa of the colon is pinkish-zafar. Approximately 9.0 cm from the base of the cecum, there is an area of black tattooing of the ascending colon serosa, which corresponds to a palpable mass. The segment is opened along the antimesocolic aspect. The ileal mucosa is pink to yellowish-green and transversely folded. There is adiposity of ileocecal valve. Arising approximately 11.5 cm from the terminal ileum margin of resection, and 23.0 cm from the distal colon margin of resection, there is a nearly circumferential pink-sevilla, centrally-ulcerated tumor mass having raised rolled borders, measuring up to 5.5 x 4.2 cm. The mass involves the muscular wall. The mucosa of the colon is yellowish-brown and transversely folded. There appear to be a few diverticuli within the ascending colon. There are no other polyps or tumor masses. . (JPM:mml/maribeth; 01/04/2021) . . Intraoperative gross consultation performed at [facility], [address] [place] [address]. BRONWYN/AKIKO . 02 Diagnosis: A. Distal ileum, cecum, ascending colon, and proximal transverse colon with attached mesocolon and portion of omentum, extended right colon resection: - Invasive colorectal adenocarcinoma, moderately to poorly differentiated, forming a nearly circumferential, centrally ulcerated tumor mass measuring up to 5.5 cm in greatest dimension, with tumor invasion through muscularis propria into subserosa/mesocolon. - Focal lymphovascular tumor invasion identified. - Fourteen mesocolic lymph nodes negative for tumor (0/14). - Proximal (distal ileum), distal (transverse colon), and mesocolic margins of resection negative for tumor. - Omentum negative for tumor. - Adiposity of ileocecal valve. - Fibrofatty obliteration of distal appendiceal lumen. - Melanosis coli. . B. Liver biopsy: - Metastatic adenocarcinoma, consistent with colorectal origin. . (JPM:maribeth/glenda; 01/07/2021) . . Surgical Pathology Cancer Case Summary . Protocol posting date: December 2019 . COLON AND RECTUM: Resection, Including Transanal Disk Excision of Rectal Neoplasms . Procedure Other (specify): Extended right colon resection . Tumor Site ___ Ascending colon . Tumor Size Greatest dimension (centimeters): 5.5 cm . Macroscopic Tumor Perforation ___ Not identified . Histologic Type ___ Adenocarcinoma . Histologic Grade ___ Other (specify): Moderately to focally poorly differentiated . Tumor Extension ___ Tumor invades through the muscularis propria into pericolorectal tissue . Margins ___ All margins are uninvolved by invasive carcinoma, high grade dysplasia/ intramucosal carcinoma, and low grade dysplasia Margins examined: Proximal, distal, and mesenteric margins. + Distance of invasive carcinoma from closest margin: 8.9 cm + Specify closest margin: Mesenteric margin . Treatment Effect ___ No known presurgical therapy . Lymphovascular Invasion ___ Present + ___ Small vessel lymphovascular invasion . Perineural Invasion ___ Not identified . + Type of Polyp in Which Invasive Carcinoma Arose + ___ None identified . Tumor Deposits ___ Not identified . Regional Lymph Nodes Number of Lymph Nodes Involved: 0 Number of Lymph Nodes Examined: 14 . Pathologic Stage Classification (pTNM, AJCC 8th Edition) . Primary Tumor (pT) ___ pT3: Tumor invades through the muscularis propria into pericolorectal tissues . Regional Lymph Nodes (pN) ___ pN0: No regional lymph node metastasis . Distant Metastasis (pM) ___ pM1a: Metastasis to one site or organ is identified without peritoneal metastasis Specify site(s), if known: Liver . + Additional Pathologic Findings + ___ See diagnoses . (JPM:glenda; 01/07/2021) MBR 01/07/2021 0930 Local . 02 Electronically signed: . Marshall Pereyra MD, Pathologist NPI- [id number] . 01 Gross description: . A. PLEASE SEE GROSS DESCRIPTION UNDER FROZEN SECTION DIAGNOSIS . The mesenteric margin is inked orange. The opposing serosal and fatty surfaces of the mass are inked black. Sectioning through the mass reveals gross extension through the muscularis propria, which grossly approaches the inked serosal surface, is 0.1 cm from the inked fatty surface, and 8.9 cm from the mesenteric margin. The appendix appears grossly unremarkable. Sectioning through the attached omentum reveals yellow-sevilla cut surfaces with no grossly distinct nodules or lesions. Sectioning through the attached pericolic fat reveals nine possible lymph nodes ranging in size from 0.1-0.3 cm in maximum dimensions. The specimen is submitted representatively as follows: . A1 proximal margin, en face A2 distal margin, en face A3 perpendicular section through mesenteric margin A4 manufacturers service representative section of mass to show relationship with inked serosal surface A5-A8 additional manufacturers service representative sections of mass A9 small bowel mucosa A10 ileocecal valve A11 uninvolved colonic mucosa A12 manufacturers service representative sections of omentum A13 manufacturers service representative sections of appendix, to include proximal margin and bisected tip A14-A15 intact possible lymph nodes. . The attached pericolic fat is placed into a lymph node enhancement solution. After exposure to the solution, further sectioning through the attached pericolic fat reveals four additional possible lymph nodes measuring 0.1 cm each in maximum dimensions. Additional manufacturers service representative sections are submitted as follows: . A16 intact possible lymph nodes A17-A18 lymphovascular bundles. . B. The specimen is received in formalin, labeled "Rodger Holm, liver mass". Received is a segment of ragged orange-brown tissue measuring 1.6 x 1.1 x 1.0 cm in greatest dimensions. Sectioning reveals a white-sevilla nodule measuring 0.5 cm in maximum dimensions. The specimen is trisected and entirely submitted in cassette B1. (CAA; 01/05/2021) [facility] 01/06/2021 1630 Local . 02 Pathologist provided ICD-10: C18.9, C78.7 . 02 CPT . 262997, 113416, 980487 Specimen Comment: Report sent to Performed at: 01 [facility] [address], [place] [id number] MD Tim Mercado MD Phone: [phone] Performed at: [address] [facility] [address] [place], [place] [id number] MD Marshall Pereyra MD Phone: [phone]
--- NOTE | 2021-01-07 14:56 | NUR ---
Patient transferred up to 6S report given to BILLY Amaya, patient was settled in bed by RN. Receiving nurse notified.
[2021-01-07] MEDS: GABAPENTIN 300 MG CAPSULE. PO SCH (15:23)
[2021-01-07] MEDS: ENOXAPARIN 40 MG/0.4 ML SYRINGE. SQ SCH (15:23)
--- NOTE | 2021-01-07 17:27 | PDOC ---
SURGICAL PROGRESS NOTE DATE: 01/07/21 TIME: 17:26 Subjective Pt out of ICU, c/o sleeping and belching, but otherwise doing well, no flatus or stool Vital Signs Vital Signs Date Time Temp Pulse Resp B/P (MAP) Pulse Ox O2 Delivery O2 Flow Rate FiO2 01/07/21 17:20 70 111/62 01/07/21 15:23 Nasal Cannula 5.0 01/07/21 15:00 96.3 20 88 96.3 I&O Intake and Output 01/07/21 07:00 Intake Total 3832.5 ml Output Total 910 ml Balance 2922.5 ml Intake Oral 0 ml IV Total 3832.5 ml Output Urine Total 910 ml PATIENT HAS A MOTA: Yes (accurate i and os) General: Alert, Oriented X3, Cooperative, No acute distress Abdomen: Soft, No tenderness Labs Laboratory Tests Test 01/06/21 05:51 01/07/21 03:30 Sodium Level 140 mmol/L (136-145) 144 mmol/L (136-145) Potassium Level 5.1 mmol/L (3.5-5.1) 5.1 mmol/L (3.5-5.1) Chloride Level 106 mmol/L (98-107) 110 mmol/L (98-107) Carbon Dioxide Level 27 mmol/L (21-32) 26 mmol/L (21-32) Anion Gap 7 (6-14) 8 (6-14) Blood Urea Nitrogen 27 mg/dL (8-26) 33 mg/dL (8-26) Creatinine 1.2 mg/dL (0.7-1.3) 1.2 mg/dL (0.7-1.3) Estimated GFR (Cockcroft-Gault) 58.7 58.7 Glucose Level 91 mg/dL (70-99) 88 mg/dL (70-99) Calcium Level 7.7 mg/dL (8.5-10.1) 7.5 mg/dL (8.5-10.1) White Blood Count 7.5 x10^3/uL (4.0-11.0) Red Blood Count 3.24 x10^6/uL (4.30-5.70) Hemoglobin 7.9 g/dL (13.0-17.5) Hematocrit 26.6 % (39.0-53.0) Mean Corpuscular Volume 82 fL (79-100) Mean Corpuscular Hemoglobin 24 pg (25-35) Mean Corpuscular Hemoglobin Concent 30 g/dL (31-37) Red Cell Distribution Width 25.1 % (11.5-14.5) Platelet Count 121 x10^3/uL (140-400) Neutrophils (%) (Auto) 83 % (31-73) Lymphocytes (%) (Auto) 7 % (24-48) Monocytes (%) (Auto) 9 % (0-9) Eosinophils (%) (Auto) 1 % (0-3) Basophils (%) (Auto) 1 % (0-3) Neutrophils # (Auto) 6.2 x10^3/uL (1.8-7.7) Lymphocytes # (Auto) 0.5 x10^3/uL (1.0-4.8) Monocytes # (Auto) 0.7 x10^3/uL (0.0-1.1) Eosinophils # (Auto) 0.1 x10^3/uL (0.0-0.7) Basophils # (Auto) 0.0 x10^3/uL (0.0-0.2) Magnesium Level 2.6 mg/dL (1.8-2.4) Laboratory Tests Test 01/07/21 03:30 White Blood Count 7.5 x10^3/uL (4.0-11.0) Red Blood Count 3.24 x10^6/uL (4.30-5.70) Hemoglobin 7.9 g/dL (13.0-17.5) Hematocrit 26.6 % (39.0-53.0) Mean Corpuscular Volume 82 fL (79-100) Mean Corpuscular Hemoglobin 24 pg (25-35) Mean Corpuscular Hemoglobin Concent 30 g/dL (31-37) Red Cell Distribution Width 25.1 % (11.5-14.5) Platelet Count 121 x10^3/uL (140-400) Neutrophils (%) (Auto) 83 % (31-73) Lymphocytes (%) (Auto) 7 % (24-48) Monocytes (%) (Auto) 9 % (0-9) Eosinophils (%) (Auto) 1 % (0-3) Basophils (%) (Auto) 1 % (0-3) Neutrophils # (Auto) 6.2 x10^3/uL (1.8-7.7) Lymphocytes # (Auto) 0.5 x10^3/uL (1.0-4.8) Monocytes # (Auto) 0.7 x10^3/uL (0.0-1.1) Eosinophils # (Auto) 0.1 x10^3/uL (0.0-0.7) Basophils # (Auto) 0.0 x10^3/uL (0.0-0.2) Sodium Level 144 mmol/L (136-145) Potassium Level 5.1 mmol/L (3.5-5.1) Chloride Level 110 mmol/L (98-107) Carbon Dioxide Level 26 mmol/L (21-32) Anion Gap 8 (6-14) Blood Urea Nitrogen 33 mg/dL (8-26) Creatinine 1.2 mg/dL (0.7-1.3) Estimated GFR (Cockcroft-Gault) 58.7 Glucose Level 88 mg/dL (70-99) Calcium Level 7.5 mg/dL (8.5-10.1) Magnesium Level 2.6 mg/dL (1.8-2.4) Problem List Problems Medical Problems: (1) Abdominal pain Status: Acute Assessment/Plan s/p right colon await bowel fxn d/w pt and pt's pathology results Justicifation of Admission Dx: Justifications for Admission: Justification of Admission Dx: Yes Respiratory Failure: Severe Resp Distress MADDIE REYES MD Jan 07, 2021 17:27
[2021-01-07] MEDS: SENNOSIDES/DOCUSATE 8.6/50MG TABLET. PO SCH (20:52)
[2021-01-08] MEDS: METOPROLOL IV PUSH 5 MG/5 ML VIAL. IVP SCH ×4 (00:46→17:53)
[2021-01-08 03:24] VITALS: BP 117/60
[2021-01-08] MEDS: IV RINGERS,LACTATED 1000ML 1,000 ML IV SCH (05:42)
[2021-01-08 07:00] VITALS: BP 111/53
[2021-01-08] MEDS: IPRATRPIUM/ALBUTEROL 0.5/2.5MG 3 ML NEBU. NEB SCH ×4 (07:21→20:07)
[2021-01-08] MEDS: BUDESONIDE 0.5 MG/2 ML NEBU. NEB SCH ×2 (07:21→20:08)
[2021-01-08] MEDS: PANTOPRAZOLE 40 MG TABLET.DR. PO SCH (07:30)
[2021-01-08] MEDS: POTASSIUM CHLORIDE 10 MEQ TABLET.ER. PO SCH (07:43)
[2021-01-08] MEDS: FUROSEMIDE 40 MG TABLET. PO SCH (07:44)
[2021-01-08] MEDS: PREGABALIN 75 MG CAPSULE PO SCH ×2 (07:44→21:14)
[2021-01-08] MEDS: ATORVASTATIN CALCIUM 10 MG TABLET. PO SCH (07:44)
[2021-01-08] MEDS: ASPIRIN CHEWABLE 81 MG TABLET. PO SCH (07:44)
[2021-01-08] MEDS: METOPROLOL SUCC 24HR ER 25 MG TAB.ER.24H. PO SCH ×2 (07:45→21:14)
[2021-01-08] MEDS: POLYETHYLENE GLYCOL 3350 17 GM PACKET. PO SCH (07:45)
[2021-01-08] MEDS: LISINOPRIL 5 MG TABLET. PO SCH (07:45)
[2021-01-08] MEDS: SERTRALINE 50 MG TABLET. PO SCH (07:45)
[2021-01-08] MEDS: BISACODYL 10 MG SUPP.RECT. PR SCH (07:46)
--- NOTE | 2021-01-08 08:34 | PDOC ---
SURGICAL PROGRESS NOTE DATE: 01/08/21 TIME: 08:33 Subjective Patient awake and alert denies any abdominal pain denies having any bowel movement or flatus Vital Signs Vital Signs Date Time Temp Pulse Resp B/P (MAP) Pulse Ox O2 Delivery O2 Flow Rate FiO2 01/08/21 07:21 92 Nasal Cannula 5.0 01/08/21 05:42 70 117/60 01/08/21 03:24 97.6 16 97.6 I&O Intake and Output 01/08/21 07:00 Intake Total 3100 ml Output Total 3025 ml Balance 75 ml Intake Oral 100 ml IV Total 3000 ml Output Urine Total 3025 ml PATIENT HAS A MOTA: Yes General: Alert, Cooperative, mild distress Abdomen: Normal bowel sounds, Soft, No tenderness, Other (Wounds dressed clean dry and intact, mildly distended) Labs Laboratory Tests Test 01/07/21 03:30 White Blood Count 7.5 x10^3/uL (4.0-11.0) Red Blood Count 3.24 x10^6/uL (4.30-5.70) Hemoglobin 7.9 g/dL (13.0-17.5) Hematocrit 26.6 % (39.0-53.0) Mean Corpuscular Volume 82 fL (79-100) Mean Corpuscular Hemoglobin 24 pg (25-35) Mean Corpuscular Hemoglobin Concent 30 g/dL (31-37) Red Cell Distribution Width 25.1 % (11.5-14.5) Platelet Count 121 x10^3/uL (140-400) Neutrophils (%) (Auto) 83 % (31-73) Lymphocytes (%) (Auto) 7 % (24-48) Monocytes (%) (Auto) 9 % (0-9) Eosinophils (%) (Auto) 1 % (0-3) Basophils (%) (Auto) 1 % (0-3) Neutrophils # (Auto) 6.2 x10^3/uL (1.8-7.7) Lymphocytes # (Auto) 0.5 x10^3/uL (1.0-4.8) Monocytes # (Auto) 0.7 x10^3/uL (0.0-1.1) Eosinophils # (Auto) 0.1 x10^3/uL (0.0-0.7) Basophils # (Auto) 0.0 x10^3/uL (0.0-0.2) Sodium Level 144 mmol/L (136-145) Potassium Level 5.1 mmol/L (3.5-5.1) Chloride Level 110 mmol/L (98-107) Carbon Dioxide Level 26 mmol/L (21-32) Anion Gap 8 (6-14) Blood Urea Nitrogen 33 mg/dL (8-26) Creatinine 1.2 mg/dL (0.7-1.3) Estimated GFR (Cockcroft-Gault) 58.7 Glucose Level 88 mg/dL (70-99) Calcium Level 7.5 mg/dL (8.5-10.1) Magnesium Level 2.6 mg/dL (1.8-2.4) Problem List Problems Medical Problems: (1) Abdominal pain Status: Acute Assessment/Plan Status post colon resection awaiting return of bowel function prior to advancing diet Continue supportive care Justicifation of Admission Dx: Justifications for Admission: Justification of Admission Dx: Yes Respiratory Failure: Severe Resp Distress NISH DUMONT MD Jan 08, 2021 08:34
[2021-01-08] MEDS: FUROSEMIDE 20 MG/2 ML VIAL. IVP SCH (09:09)
[2021-01-08] MEDS: IPRATROPIUM BROMIDE 0.06% NASAL SPRAY 15ML BOTTLE. NS SCH ×2 (09:10→21:14)
[2021-01-08 11:00] VITALS: BP 124/67
--- NOTE | 2021-01-08 11:22 | PDOC ---
PULMONARY PROGRESS NOTES DATE: 01/08/21 TIME: 11:20 Subjective Patient not short of air. Currently on nasal canula has abd pain S/P LAP Vitals Vital Signs Date Time Temp Pulse Resp B/P (MAP) Pulse Ox O2 Delivery O2 Flow Rate FiO2 01/08/21 10:59 Nasal Cannula 5.0 01/08/21 07:21 92 01/08/21 07:00 98.1 74 22 111/53 (72) 98.1 ROS: No Nausea, No Chest Pain, No Abdominal Pain, No Increase Cough General: Alert, No acute distress HEENT: Other Lungs: Clear Cardiovascular: S1, S2 Abdomen: Soft, Non-tender, Other (distended ) Neuro Exam: Alert Extremities: Other (Edema) Skin: Warm Labs Laboratory Tests Test 01/07/21 03:30 White Blood Count 7.5 x10^3/uL (4.0-11.0) Red Blood Count 3.24 x10^6/uL (4.30-5.70) Hemoglobin 7.9 g/dL (13.0-17.5) Hematocrit 26.6 % (39.0-53.0) Mean Corpuscular Volume 82 fL (79-100) Mean Corpuscular Hemoglobin 24 pg (25-35) Mean Corpuscular Hemoglobin Concent 30 g/dL (31-37) Red Cell Distribution Width 25.1 % (11.5-14.5) Platelet Count 121 x10^3/uL (140-400) Neutrophils (%) (Auto) 83 % (31-73) Lymphocytes (%) (Auto) 7 % (24-48) Monocytes (%) (Auto) 9 % (0-9) Eosinophils (%) (Auto) 1 % (0-3) Basophils (%) (Auto) 1 % (0-3) Neutrophils # (Auto) 6.2 x10^3/uL (1.8-7.7) Lymphocytes # (Auto) 0.5 x10^3/uL (1.0-4.8) Monocytes # (Auto) 0.7 x10^3/uL (0.0-1.1) Eosinophils # (Auto) 0.1 x10^3/uL (0.0-0.7) Basophils # (Auto) 0.0 x10^3/uL (0.0-0.2) Sodium Level 144 mmol/L (136-145) Potassium Level 5.1 mmol/L (3.5-5.1) Chloride Level 110 mmol/L (98-107) Carbon Dioxide Level 26 mmol/L (21-32) Anion Gap 8 (6-14) Blood Urea Nitrogen 33 mg/dL (8-26) Creatinine 1.2 mg/dL (0.7-1.3) Estimated GFR (Cockcroft-Gault) 58.7 Glucose Level 88 mg/dL (70-99) Calcium Level 7.5 mg/dL (8.5-10.1) Magnesium Level 2.6 mg/dL (1.8-2.4) Medications Active Scripts Medications Dose Route/Sig Max Daily Dose Days Date Category Sertraline Hcl 50 Mg Tablet 50 Mg PO DAILY 12/29/20 Reported Budesonide 0.5 Mg/2 Ml Ampul.neb 1 Vial NEB BID 12/29/20 Reported Tudorza Pressair (Aclidinium [place]) 400 Mcg Aer.pow.ba 1 Puff IH BID 12/29/20 Reported Ipratropium [place] 0.2 Mg/1 Ml Solution 1 Vial NEB QID 12/29/20 Reported Klor-Con 10 (Potassium Chloride) 10 Meq Tablet.er 1 Tab PO DAILY 30 12/29/20 Reported Lyrica (Pregabalin) 75 Mg Capsule 1 Cap PO BID 12/29/20 Reported Lisinopril 5 Mg Tablet 5 Mg PO DAILY 10/17/20 Rx Senna Plus Tablet (Sennosides/Docusate Sodium) 1 Each Tablet 2 Tab PO QHS 14 10/01/20 Rx Ipratropium [place] 15 Ml Lavinia 2 Sprays NS BID 07/08/20 Reported Metoprolol Succinate ( Xl ) (Metoprolol Succinate) 25 Mg Tab.er.24h 1 Tab PO DAILY 30 07/08/20 Reported Pantoprazole Sodium 40 Mg Tablet.dr 1 Tab PO DAILY 30 07/08/20 Reported Gabapentin (Gabapentin) 300 Mg Capsule 300 Mg PO DAILYWSUP 06/30/19 Reported Aspirin 81 Mg Tab.chew 81 Mg PO DAILY 06/30/19 Reported Furosemide 40 Mg Tablet 40 Mg PO DAILY MDD 1 10/19/18 Rx Lovastatin 40 Mg Tablet 1 Tab PO DAILY 12/14/14 Reported Impression . IMPRESSION: 1. Chronic respiratory failure, multifactorial secondary to severe chronic obstructive pulmonary disease, coronary artery disease, previous coronary artery bypass grafting and deconditioning. 2. Cardiomyopathy, status post coronary artery bypass grafting. 3. Chronic atrial fibrillation. 4. Recent diagnosis of colon cancer. S/P open right colon resection, liver biopsy 5. Ascites 6. Cephalic vein thrombosis Plan . Respiratory status is compensated, WEAN fiO2 avoid over sedation Incentive spirometry the importance of use discussed Bronchodilators/ICS DVT prophy surgery rec TPN per surgery discussed w pt KANCHAN MÁRQUEZ MD Jan 08, 2021 11:22
[2021-01-08] MEDS ORDERED: IV NORMAL SALINE 500ML BAG 500 ML IV ONE (11:45)
--- NOTE | 2021-01-08 11:45 | NUR ---
Per annette Peng to administer lovenox. Will continue to monitor.
[2021-01-08] MEDS: IV NORMAL SALINE 1000ML BAG 1,000 ML IV SCH (12:00)
[2021-01-08] MEDS: AMINO AC 3%/ELECTROLYTE/GLYCER 1,000 ML IV SCH (12:44)
--- NOTE | 2021-01-08 13:05 | PDOC ---
[facility] PROGRESS NOTE Date of Service DOS: DATE: 01/08/21 TIME: 13:04 Chief Complaint Chief Complaint Acute Abd pain, fluid overload colon cancer, plan resection 3.2, iron deficiency anemia, obese, BMI 32 weakness, debility depression, insomnia neuropathy History of Present Illness History of Present Illness 01/08, change fluid from LR to PPN, cont other, pain OK, he reports stool, RN doesnt think so, cont current, if he stools, we can try liquid diet, try OOB to chair 4 L nasal cannula O2. Afebrile. Sit up in chair. Pain is still intermittent. Even with ice chips he is getting some esophageal spasm and pain. Not passing flatus currently. Feeling well overall. Hb 7.9, CR 1.2. Okay to transfer out of ICU. 01/06: On 15L facemask O2, up from home 4L. He is feeling well, asking to eat and drink. Still using his BOND BROKER. IV protonix today 01/05: Seen in ICU. On facemask O2. He actually has bowel sounds is reasonably controlled abdominal pain with BOND BROKER. His only complaint is dry mouth. 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 Transferred to ICU thereafter. 01/02: Patient seen and examined, sitting up and talkative. He has no new complaints 01/01: Issues swallowing liquids, ordering bedside swallow. He did take a drink and have a coughing fit during our conversation, says this happens frequently 12/31: Patient seen and examined. Discussed surgery date push back 12/30: Discussed CRC prognosis and he wanted a second opinion on the prognosis. Called Dr. Cullen who is willing to complete surgery if patient decides Vitals/I&O Vitals/I&O: Vital Signs Date Time Temp Pulse Resp B/P (MAP) Pulse Ox O2 Delivery O2 Flow Rate FiO2 01/08/21 12:45 71 124/67 01/08/21 11:00 96.0 22 90 Nasal Cannula 5.0 96.0 I & O 01/07/21 01/07/21 01/08/21 15:00 23:00 07:00 Intake Total 1000 ml 1100 ml 1000 ml Output Total 675 ml 1500 ml 850 ml Balance 325 ml -400 ml 150 ml Physical Exam General: Alert, Cooperative, mild distress Heart: Regular rate Lungs: Clear Abdomen: Normal bowel sounds, Soft, No tenderness, Other (Wounds dressed clean dry and intact, mildly distended) Extremities: No clubbing, No cyanosis, Other (Mild edema) Skin: No rashes, Other (Bruising on arms) Assessment and Plan Assessmemt and Plan Problems Medical Problems: (1) Abdominal pain Status: Acute Comment Review of Relevant I have reviewed the following items jay (where applicable) has been applied. Medications: Current Medications Medications (Trade) Dose Ordered Sig/Minerva Route PRN Reason Start Time Stop Time Status Last Admin Dose Admin Furosemide (Lasix) 20 mg DAILY IVP 01/08/21 09:00 01/08/21 09:09 Amino Acids/ Glycerin/ Electrolytes 1,000 ml @ 80 mls/hr [id number] IV 01/08/21 12:00 01/08/21 12:44 Sodium Chloride 500 ml @ 500 mls/hr 1X ONCE IV 01/08/21 11:45 01/08/21 12:44 DC 01/08/21 12:44 Justifications for Admission Other Justification OSMAR DAVIS MD Jan 08, 2021 13:05
[2021-01-08 15:00] VITALS: BP 119/62
--- NOTE | 2021-01-08 15:44 | PDOC ---
PROGRESS NOTES Date of Service DATE: 01/08/21 TIME: 15:41 Subjective Subjective Patient seen and examined Objective Objective Vital Signs Date Time Temp Pulse Resp B/P (MAP) Pulse Ox O2 Delivery O2 Flow Rate FiO2 01/08/21 12:45 71 124/67 01/08/21 11:00 96.0 22 90 Nasal Cannula 5.0 96.0 Intake and Output 01/08/21 07:00 Intake Total 3100 ml Output Total 3025 ml Balance 75 ml Intake Oral 100 ml IV Total 3000 ml Output Urine Total 3025 ml Physical Exam Abdomen: Other (Decreased bowel sounds) Heart: Other (Irregularly irregular rhythm) General: mild distress Lungs: Other (Slightly decreased breath sounds in the bases) Assessment Assessment Problems Medical Problems: (1) Abdominal pain Status: Acute Mild acute on chronic systolic CHF; compensated ICM: Echo 10/24 with LVEF 30-35%. S/p [employer]-D ([employer]). Device check 10/24 with normal function. stable lead impedances, adequate batter life at 20%. AFIB burden > 99%. CAD: past CABG and PCI. Most recent PCI/stents 12/2015. Clinically stable. Anemia, coagulopathy; s/p transfusion Colon CA with obstructing colonic mass; s/p open colon resection. POD#4. As per general surgery. Persistent AFIB; v-paced with underlying AFIB, rate controlled Hypertension; controlled Hyperlipidemia; statin GRUPO on CKD; back to baseline COPD with home O2 use Left cephalic vein thrombus Comment Review of Relevant I have reviewed the following items jay (where applicable) has been applied. Labs Laboratory Tests Test 01/07/21 03:30 White Blood Count 7.5 x10^3/uL (4.0-11.0) Red Blood Count 3.24 x10^6/uL (4.30-5.70) Hemoglobin 7.9 g/dL (13.0-17.5) Hematocrit 26.6 % (39.0-53.0) Mean Corpuscular Volume 82 fL (79-100) Mean Corpuscular Hemoglobin 24 pg (25-35) Mean Corpuscular Hemoglobin Concent 30 g/dL (31-37) Red Cell Distribution Width 25.1 % (11.5-14.5) Platelet Count 121 x10^3/uL (140-400) Neutrophils (%) (Auto) 83 % (31-73) Lymphocytes (%) (Auto) 7 % (24-48) Monocytes (%) (Auto) 9 % (0-9) Eosinophils (%) (Auto) 1 % (0-3) Basophils (%) (Auto) 1 % (0-3) Neutrophils # (Auto) 6.2 x10^3/uL (1.8-7.7) Lymphocytes # (Auto) 0.5 x10^3/uL (1.0-4.8) Monocytes # (Auto) 0.7 x10^3/uL (0.0-1.1) Eosinophils # (Auto) 0.1 x10^3/uL (0.0-0.7) Basophils # (Auto) 0.0 x10^3/uL (0.0-0.2) Sodium Level 144 mmol/L (136-145) Potassium Level 5.1 mmol/L (3.5-5.1) Chloride Level 110 mmol/L (98-107) Carbon Dioxide Level 26 mmol/L (21-32) Anion Gap 8 (6-14) Blood Urea Nitrogen 33 mg/dL (8-26) Creatinine 1.2 mg/dL (0.7-1.3) Estimated GFR (Cockcroft-Gault) 58.7 Glucose Level 88 mg/dL (70-99) Calcium Level 7.5 mg/dL (8.5-10.1) Magnesium Level 2.6 mg/dL (1.8-2.4) Microbiology 12/29/20 Blood Culture - Final, Complete NO GROWTH AFTER 5 DAYS Medications Current Medications Phytonadione (Vitamin K Ampule) 10 mg 1X ONCE SQ Last administered on 12/29/20at 12:57; Start 12/29/20 at 12:30; Stop 12/29/20 at 12:31; Status DC Piperacillin Sod/ Tazobactam Sod (Zosyn Per Pharmacy) 1 each PRN DAILY PRN MC SEE COMMENTS; Start 12/29/20 at 12:30; Stop 12/30/20 at 13:32; Status DC Piperacillin Sod/ Tazobactam Sod 3.375 gm/Sodium Chloride 50 ml @ 100 mls/hr ONCE ONCE IV Last administered on 12/29/20at 14:18; Start 12/29/20 at 13:00; Stop 12/29/20 at 13:29; Status DC Piperacillin Sod/ Tazobactam Sod 3.375 gm/Sodium Chloride 50 ml @ 100 mls/hr Q6HRS IV Last administered on 12/30/20at 12:01; Start 12/29/20 at 19:00; Stop 12/30/20 at 13:32; Status DC Aspirin (Aspirin Chewable) 81 mg DAILY PO Last administered on 01/03/21at 09:37; Start 12/30/20 at 12:30 Furosemide (Lasix) 40 mg DAILY PO Last administered on 01/03/21at 12:59; Start 12/30/20 at 12:30; Stop 01/08/21 at 07:50; Status DC Gabapentin (Neurontin) 300 mg DAILYWSUP PO Last administered on 01/03/21at 09:43; Start 12/30/20 at 17:00 Ipratropium [place] (Atrovent) 1 mg QID NEB ; Start 12/30/20 at 13:00; Stop 12/30/20 at 11:54; Status DC Ipratropium [place] (Atrovent Nasal) 2 spray BID NS Last administered on 01/08/21at 09:10; Start 12/30/20 at 21:00 Lisinopril (Prinivil) 5 mg DAILY PO Last administered on 01/01/21 08:15; Start 12/30/20 at 12:30 Metoprolol Succinate (Toprol Xl) 25 mg DAILY PO Last administered on 01/01/21at 08:15; Start 12/30/20 at 12:30 Pantoprazole Sodium (Protonix) 40 mg DAILYAC PO Last administered on 01/03/21at 09:46; Start 12/30/20 at 12:30 Pregabalin (Lyrica) 75 mg BID PO Last administered on 01/03/21at 21:00; Start 12/30/20 at 21:00 Senna/Docusate Sodium (Senna Plus) 2 tab QHS PO Last administered on 01/03/21 20:53; Start 12/30/20 at 21:00 Sertraline HCl (Zoloft) 50 mg DAILY PO Last administered on 01/03/21at 09:36; Start 12/30/20 at 12:30 Albuterol/ Ipratropium (Duoneb) 3 ml RTQID NEB Last administered on 01/08/21at 10:59; Start 12/30/20 at 12:00 Atorvastatin Calcium (Lipitor) 10 mg DAILY PO Last administered on 01/03/21at 09:36; Start 12/30/20 at 12:30 Potassium Chloride (Klor-Con) 10 meq DAILYWBKFT PO Last administered on 01/03/21at 09:37; Start 12/30/20 at 12:30 Fentanyl Citrate (Fentanyl 2ml Vial) 25 mcg PRN Q5MIN PRN IVP MILD PAIN 1-3; Start 12/31/20 at 06:00; Stop 01/01/21 at 05:59; Status DC Fentanyl Citrate (Fentanyl 2ml Vial) 50 mcg PRN Q5MIN PRN IVP MODERATE PAIN 4- 6; Start 12/31/20 at 06:00; Stop 01/01/21 at 05:59; Status DC Morphine Sulfate (Morphine Sulfate) 1 mg PRN Q10MIN PRN IVP SEVERE PAIN 7-10; Start 12/31/20 at 06:00; Stop 01/01/21 at 05:59; Status DC Ringer's Solution 1,000 ml @ 30 mls/hr Q24H IV ; Start 12/31/20 at 06:00; Stop 12/31/20 at 17:59; Status DC Hydromorphone HCl (Dilaudid) 0.5 mg PRN Q10MIN PRN IVP SEVERE PAIN 7-10, 2nd CHOICE; Start 12/31/20 at 06:00; Stop 01/01/21 at 05:59; Status DC Prochlorperazine Edisylate (Compazine) 5 mg PACU PRN PRN IVP NAUSEA, MRX1; Start 12/31/20 at 06:00; Stop 01/01/21 at 05:59; Status DC Fentanyl Citrate (Fentanyl 2ml Vial) 25 mcg PRN Q5MIN PRN IVP MILD PAIN 1-3; Start 12/31/20 at 06:00; Stop 01/01/21 at 05:59; Status UNV Fentanyl Citrate (Fentanyl 2ml Vial) 50 mcg PRN Q5MIN PRN IVP MODERATE PAIN 4- 6; Start 12/31/20 at 06:00; Stop 01/01/21 at 05:59; Status UNV Morphine Sulfate (Morphine Sulfate) 1 mg PRN Q10MIN PRN IVP SEVERE PAIN 7-10; Start 12/31/20 at 06:00; Stop 01/01/21 at 05:59; Status UNV Ringer's Solution 1,000 ml @ 30 mls/hr Q24H IV ; Start 12/31/20 at 06:00; Stop 12/31/20 at 17:59; Status UNV Hydromorphone HCl (Dilaudid) 0.5 mg PRN Q10MIN PRN IVP SEVERE PAIN 7-10, 2nd CHOICE; Start 12/31/20 at 06:00; Stop 01/01/21 at 05:59; Status UNV Prochlorperazine Edisylate (Compazine) 5 mg PACU PRN PRN IVP NAUSEA, MRX1; Start 12/31/20 at 06:00; Stop 01/01/21 at 05:59; Status UNV Furosemide (Lasix) 40 mg 1X ONCE IVP Last administered on 12/30/20at 17:27; Start 12/30/20 at 17:00; Stop 12/30/20 at 17:01; Status DC Glycopyrrolate (Robinul) 1 mg STK-MED ONCE .ROUTE ; Start 12/31/20 at 08:23; Stop 12/31/20 at 08:23; Status DC Propofol (Diprivan) 200 mg STK-MED ONCE IV ; Start 12/31/20 at 08:23; Stop 12/31/20 at 08:23; Status DC Etomidate (Amidate) 20 mg STK-MED ONCE IV ; Start 12/31/20 at 08:23; Stop 12/31 at 08:24; Status DC Lidocaine HCl (Lidocaine Pf 2% Vial) 5 ml STK-MED ONCE .ROUTE ; Start 12/31/20 at 08:24; Stop 12/31/20 at 08:24; Status DC Phenylephrine HCl (PHENYLEPHRINE in 0.9% NACL PF) 1 mg STK-MED ONCE IV ; Start 12/31/20 at 08:24; Stop 12/31/20 at 08:24; Status DC Ephedrine Sulfate (ePHEDrine PF IN SALINE SYRINGE) 50 mg STK-MED ONCE IV ; Start 12/31/20 at 08:24; Stop 12/31/20 at 08:24; Status DC Succinylcholine Chloride (Anectine) 200 mg STK-MED ONCE .ROUTE ; Start 12/31/20 at 08:24; Stop 12/31/20 at 08:24; Status DC Rocuronium [place] (Zemuron) 50 mg STK-MED ONCE .ROUTE ; Start 12/31/20 at 08:24; Stop 12/31/20 at 08:25; Status DC Fentanyl Citrate (Fentanyl 2ml Vial) 100 mcg STK-MED ONCE .ROUTE ; Start 12/31/20 at 08:25; Stop 12/31/20 at 08:25; Status DC Phenylephrine HCl (Can-Synephrine Inj) 10 mg STK-MED ONCE .ROUTE ; Start 12/31/20 at 08:28; Stop 12/31/20 at 08:28; Status DC Bisacodyl (Dulcolax Supp) 10 mg DAILY NH Last administered on 01/03/21 09:47; Start 12/31/20 at 12:00 Polyethylene Glycol (miraLAX PACKET) 17 gm DAILY PO Last administered on 01/03/21 09:35; Start 12/31/20 at 12:00 Iron Sucrose 500 mg/Sodium Chloride 275 ml @ 78.571 mls/ hr 1X ONCE IV Last administered on 12/31/20 16:06; Start 12/31/20 at 13:00; Stop 12/31/20 at 16:29; Status DC Budesonide (Pulmicort) 0.5 mg RTBID NEB Last administered on 01/08/21at 07:21; Start 01/02/21 at 20:00 Temazepam (Restoril) 15 mg PRN QHS PRN PO INSOMNIA Last administered on 01/03/21 20:53; Start 01/02/21 at 21:45 Oxymetazoline HCl (Afrin) 2 spray PRN BID PRN NS CONGESTION Last administered on 01/03/21 09:36; Start 01/02/21 at 21:45 Guaifenesin (Mucinex) 600 mg BID PO Last administered on 01/03/21 20:49; Start 01/02/21 at 22:00 Fentanyl Citrate (Fentanyl 2ml Vial) 25 mcg PRN Q5MIN PRN IVP MILD PAIN 1-3 Last administered on 01/04/21 12:39; Start 01/04/21 at 06:00; Stop 01/05/21 at 05:59; Status DC Fentanyl Citrate (Fentanyl 2ml Vial) 50 mcg PRN Q5MIN PRN IVP MODERATE PAIN 4- 6; Start 01/04/21 at 06:00; Stop 01/05/21 at 05:59; Status DC Morphine Sulfate (Morphine Sulfate) 1 mg PRN Q10MIN PRN IVP SEVERE PAIN 7-10; Start 01/04/21 at 06:00; Stop 01/05/21 at 05:59; Status DC Ringer's Solution 1,000 ml @ 30 mls/hr Q24H IV Last administered on 01/04/21at 08:15; Start 01/04/21 at 06:00; Stop 01/04/21 at 17:59; Status DC Hydromorphone HCl (Dilaudid) 0.5 mg PRN Q10MIN PRN IVP SEVERE PAIN 7-10, 2nd CHOICE Last administered on 01/04/21at 13:44; Start 01/04/21 at 06:00; Stop 01/05/21 at 05:59; Status DC Prochlorperazine Edisylate (Compazine) 5 mg PACU PRN PRN IVP NAUSEA, MRX1; Start 01/04/21 at 06:00; Stop 01/05/21 at 05:59; Status DC Ceftriaxone Sodium (Rocephin) 1 gm 1X PREOP IVP Last administered on 01/04/21at 09:48; Start 01/04/21 at 09:00; Stop 01/05/21 at 11:22; Status DC Metronidazole 100 ml @ 100 mls/hr 1X PREOP IV Last administered on 01/04/21at 09:49; Start 01/04/21 at 09:00; Stop 01/04/21 at 18:00; Status DC Lidocaine HCl (Xylocaine-Mpf 1% 2ml Vial) 2 ml STK-MED ONCE .ROUTE ; Start 01/04/21 at 08:08; Stop 01/04/21 at 08:09; Status DC Propofol (Diprivan) 200 mg STK-MED ONCE IV ; Start 01/04/21 at 08:29; Stop 01/04/21 at 08:30; Status DC Lidocaine HCl (Lidocaine Pf 2% Vial) 5 ml STK-MED ONCE .ROUTE ; Start 01/04/21 at 08:29; Stop 01/04/21 at 08:30; Status DC Ondansetron HCl (Zofran) 4 mg STK-MED ONCE .ROUTE ; Start 01/04/21 at 08:29; Stop 01/04/21 at 08:30; Status DC Dexamethasone Sodium Phosphate (Decadron) 4 mg STK-MED ONCE .ROUTE ; Start 01/04/21 at 08:29; Stop 01/04/21 at 08:30; Status DC Succinylcholine Chloride (Anectine) 200 mg STK-MED ONCE .ROUTE ; Start 01/04/21 at 08:30; Stop 01/04/21 at 08:30; Status DC Rocuronium [place] (Zemuron) 50 mg STK-MED ONCE .ROUTE ; Start 01/04/21 at 08:30; Stop 01/04/21 at 08:30; Status DC Fentanyl Citrate (Fentanyl 2ml Vial) 100 mcg STK-MED ONCE .ROUTE ; Start 01/04/21 at 08:30; Stop 01/04/21 at 08:30; Status DC Phenylephrine HCl (Can-Synephrine Inj) 10 mg STK-MED ONCE .ROUTE ; Start 01/04/21 at 08:55; Stop 01/04/21 at 08:56; Status DC Rocuronium [place] (Zemuron) 50 mg STK-MED ONCE .ROUTE ; Start 01/04/21 at 09:43; Stop 01/04/21 at 09:43; Status DC Cellulose (Surgicel Hemostat 4x8) 1 each STK-MED ONCE .ROUTE Last administered on 01/04/21at 09:42; Start 01/04/21 at 10:43; Stop 01/04/21 at 10:44; Status DC Cellulose (Surgicel Hemostat 4x8) 1 each STK-MED ONCE .ROUTE Last administered on 01/04/21at 09:42; Start 01/04/21 at 10:43; Stop 01/04/21 at 10:44; Status DC Cellulose (Surgicel Hemostat 4x8) 1 each STK-MED ONCE .ROUTE ; Start 01/04/21 at 10:47; Stop 01/04/21 at 10:48; Status Cancel Cellulose (Surgicel Hemostat 4x8) 1 each STK-MED ONCE .ROUTE ; Start 01/04/21 at 10:47; Stop 01/04/21 at 10:48; Status Cancel Cellulose (Surgicel Hemostat 4x8) 1 each STK-MED ONCE .ROUTE ; Start 01/04/21 at 10:47; Stop 01/04/21 at 10:48; Status Cancel Sevoflurane (Ultane) 90 ml STK-MED ONCE IH ; Start 01/04/21 at 11:03; Stop 01/04/21 at 11:04; Status DC Enoxaparin Sodium (Lovenox 40mg Syringe) 40 mg Q24H SQ Last administered on 01/05/21at 16:12; Start 01/04/21 at 16:00 Sodium Chloride (Normal Saline Flush) 3 ml QSHIFT PRN IV AFTER MEDS AND BLOOD DRAWS; Start 01/04/21 at 11:30 Ringer's Solution 1,000 ml @ 100 mls/hr Q10H IV Last administered on 01/08/21at 05:42; Start 01/04/21 at 12:00; Stop 01/08/21 at 11:37; Status DC Fentanyl Citrate 30 ml @ 0 mls/hr CONT PRN PRN IV PER PROTOCOL Last administered on 01/06/21at 20:30; Start 01/04/21 at 11:30 Naloxone HCl (Narcan) 0.4 mg PRN Q2MIN PRN IV SEE INSTRUCTIONS; Start 01/04/21 at 11:30 Sodium Chloride 1,000 ml @ 25 mls/hr Q24H IV Last administered on 01/08/21at 12:00; Start 01/04/21 at 12:00 Ondansetron HCl (Zofran) 4 mg PRN Q6HRS PRN IVP NAUESA, 1ST CHOICE; Start 01/04/21 at 11:30 Fentanyl Citrate (Fentanyl 2ml Vial) 100 mcg STK-MED ONCE .ROUTE ; Start 01/04/21 at 11:55; Stop 01/04/21 at 11:55; Status DC Fentanyl Citrate (Fentanyl 2ml Vial) 100 mcg STK-MED ONCE .ROUTE ; Start 01/04/21 at 12:29; Stop 01/04/21 at 12:29; Status DC Hydromorphone HCl (Dilaudid) 2 mg STK-MED ONCE .ROUTE ; Start 01/04/21 at 12:42; Stop 01/04/21 at 12:42; Status DC Ketamine HCl (Ketamine) 50 mg STK-MED ONCE .ROUTE ; Start 01/04/21 at 15:01; Stop 01/04/21 at 15:02; Status DC Sodium Chloride 250 ml @ 250 mls/hr 1X ONCE IV ; Start 01/05/21 at 06:00; Stop 01/05/21 at 05:37; Status DC Saliva Substitute (Biotene Moisturizing Mouth) 2 spray PRN Q15MIN PRN PO DRY MOUTH Last administered on 01/05/21at 17:47; Start 01/05/21 at 10:00 Metoprolol Tartrate (Lopressor Vial) 5 mg PRN Q5MIN PRN IVP TACHYCARDIA; Start 01/05/21 at 14:00 Pantoprazole Sodium (PROTONIX VIAL for IV PUSH) 40 mg 1X ONCE IVP Last administered on 01/06/21at 08:21; Start 01/06/21 at 08:30; Stop 01/06/21 at 08:31; Status DC Metoprolol Tartrate (Lopressor Vial) 2.5 mg Q6HRS IVP Last administered on 01/08/21at 12:45; Start 01/06/21 at 18:00 Furosemide (Lasix) 20 mg DAILY IVP Last administered on 01/08/21at 09:09; Start 01/08/21 at 09:00 Furosemide (Lasix) 40 mg 1X ONCE IVP Last administered on 01/07/21at 10:50; Start 01/07/21 at 10:45; Stop 01/07/21 at 10:46; Status DC Amino Acids/ Glycerin/ Electrolytes 1,000 ml @ 80 mls/hr [id number] IV Last administered on 01/08/21at 12:44; Start 01/08/21 at 12:00 Sodium Chloride 500 ml @ 500 mls/hr 1X ONCE IV Last administered on 01/08/21at 12:44; Start 01/08/21 at 11:45; Stop 01/08/21 at 12:44; Status DC Active Scripts Active Lisinopril 5 Mg Tablet 5 Mg PO DAILY Senna Plus Tablet (Sennosides/Docusate Sodium) 1 Each Tablet 2 Tab PO QHS 14 Days Furosemide 40 Mg Tablet 40 Mg PO DAILY MDD 1 Reported Sertraline Hcl 50 Mg Tablet 50 Mg PO DAILY Budesonide 0.5 Mg/2 Ml Ampul.neb 1 Vial NEB BID Tudorza Pressair (Aclidinium [place]) 400 Mcg Aer.pow.ba 1 Puff IH BID Ipratropium [place] 0.2 Mg/1 Ml Solution 1 Vial NEB QID Klor-Con 10 (Potassium Chloride) 10 Meq Tablet.er 1 Tab PO DAILY 30 Days Lyrica (Pregabalin) 75 Mg Capsule 1 Cap PO BID Ipratropium [place] 15 Ml [place] 2 Sprays NS BID Metoprolol Succinate ( Xl ) (Metoprolol Succinate) 25 Mg Tab.er.24h 1 Tab PO DAILY 30 Days Pantoprazole Sodium 40 Mg Tablet.dr 1 Tab PO DAILY 30 Days Gabapentin (Gabapentin) 300 Mg Capsule 300 Mg PO DAILYWSUP Aspirin 81 Mg Tab.chew 81 Mg PO DAILY Lovastatin 40 Mg Tablet 1 Tab PO DAILY Vitals/I & O Vital Sign - Last 24 Hours 01/07/21 01/07/21 01/07/21 01/07/21 17:20 19:48 19:52 20:00 Temp 97.5 97.5 Pulse 70 70 Resp 16 B/P (MAP) 111/62 106/59 (75) Pulse Ox 95 92 O2 Delivery Nasal Cannula Nasal Cannula Nasal Cannula O2 Flow Rate 5.0 5.0 5.0 01/07/21 01/08/21 01/08/21 01/08/21 23:15 00:46 03:24 05:42 Temp 97.9 97.6 97.9 97.6 Pulse 70 70 70 70 Resp 16 16 B/P (MAP) 110/59 (76) 110/59 117/60 (79) 117/60 Pulse Ox 90 92 O2 Delivery Nasal Cannula Nasal Cannula O2 Flow Rate 5.0 5.0 01/08/21 01/08/21 01/08/21 01/08/21 07:00 07:21 08:00 10:59 Temp 98.1 98.1 Pulse 74 Resp 22 B/P (MAP) 111/53 (72) Pulse Ox 92 92 O2 Delivery Nasal Cannula Nasal Cannula Nasal Cannula Nasal Cannula O2 Flow Rate 5.0 5.0 5.0 5.0 01/08/21 01/08/21 11:00 12:45 Temp 96.0 96.0 Pulse 71 71 Resp 22 B/P (MAP) 124/67 (86) 124/67 Pulse Ox 90 O2 Delivery Nasal Cannula O2 Flow Rate 5.0 Intake and Output0 01/07/21 01/07/21 01/08/21 15:00 23:00 07:00 Intake Total 1000 ml 1100 ml 1000 ml Output Total 675 ml 1500 ml 850 ml Balance 325 ml -400 ml 150 ml Justifications for Admission Other Justification Nutrition Consultation Dietary Evaluation: Recommendations by RD: Dietary education by RD, Protein supplementation Comments: REC resume cardiac diet when appropriate w/Ensure TID as ordered previously REC PPN if unable to advance diet within 24- 48 hrs Expected Outcomes/Goals: Improved po intake-new goal established PO intake >75% estimated nutritional need-new goal established New goal 01/06: Diet advancement s/p colon surgery Malnutrition Findings: Food and Nutrition Intake (Sev: <50% est energy req 5days Weight Status: Overweight Fluid Accumulation (Non-Severe: Mild depletion ERIC OROZCO MD Jan 08, 2021 15:44
[2021-01-08] MEDS: GABAPENTIN 300 MG CAPSULE. PO SCH (16:20)
[2021-01-08] MEDS: ENOXAPARIN 40 MG/0.4 ML SYRINGE. SQ SCH (17:50)
[2021-01-08 19:00] VITALS: BP 102/57
[2021-01-08] MEDS: SENNOSIDES/DOCUSATE 8.6/50MG TABLET. PO SCH (21:14)
[2021-01-08] MEDS: ONDANSETRON PF 4 MG/2 ML VIAL. IVP PRN (21:54)
[2021-01-08 23:02] VITALS: BP 105/60
[2021-01-09] MEDS: AMINO AC 3%/ELECTROLYTE/GLYCER 1,000 ML IV SCH ×2 (01:51→14:13)
[2021-01-09 03:32] VITALS: BP 92/46
[2021-01-09 04:23] LABS: BASO # 0.1 x10^3/uL (0.0-0.2); BASO % 1 % (0-3); EOS # 0.1 x10^3/uL (0.0-0.7); EOS % 1 % (0-3); HEMOGLOBIN 8.3 g/dL (13.0-17.5); LYMPH # 0.5 x10^3/uL (1.0-4.8); LYMPH % 7 % (24-48); MEAN CORPUSCULAR HEMOGLOBIN 25 pg (25-35); MEAN CORPUSCULAR HGB CONC 30 g/dL (31-37); MEAN CORPUSCULAR VOLUME 83 fL (79-100); MONO # 0.7 x10^3/uL (0.0-1.1); MONO % 9 % (0-9); NEUT # 5.9 x10^3/uL (1.8-7.7); NEUT % 82 % (31-73); PLATELET COUNT 129 x10^3/uL (140-400); RED BLOOD COUNT 3.39 x10^6/uL (4.30-5.70); RED CELL DISTRIBUTION WIDTH 26.3 % (11.5-14.5); WHITE BLOOD COUNT 7.3 x10^3/uL (4.0-11.0)
[2021-01-09 04:41] LABS: ALBUMIN 2.3 g/dL (3.4-5.0); ALBUMIN/GLOBULIN RATIO 0.7 (1.0-1.7); CALCIUM 7.7 mg/dL (8.5-10.1); CREATININE 1.4 mg/dL (0.7-1.3); GFR 49.1; POTASSIUM 4.7 mmol/L (3.5-5.1); TOTAL BILIRUBIN 2.8 mg/dL (0.2-1.0); TOTAL PROTEIN 5.6 g/dL (6.4-8.2)
[2021-01-09] MEDS: METOPROLOL IV PUSH 5 MG/5 ML VIAL. IVP SCH ×4 (05:27→17:07)
[2021-01-09] MEDS: PANTOPRAZOLE 40 MG TABLET.DR. PO SCH (07:09)
[2021-01-09 07:10] VITALS: BP 119/63
[2021-01-09] MEDS: POTASSIUM CHLORIDE 10 MEQ TABLET.ER. PO SCH (07:10)
[2021-01-09] MEDS: SERTRALINE 50 MG TABLET. PO SCH (07:11)
[2021-01-09] MEDS: POLYETHYLENE GLYCOL 3350 17 GM PACKET. PO SCH (07:11)
[2021-01-09] MEDS: ASPIRIN CHEWABLE 81 MG TABLET. PO SCH (07:11)
[2021-01-09] MEDS: ATORVASTATIN CALCIUM 10 MG TABLET. PO SCH (07:11)
[2021-01-09] MEDS: PREGABALIN 75 MG CAPSULE PO SCH ×2 (07:11→21:28)
[2021-01-09] MEDS: LISINOPRIL 5 MG TABLET. PO SCH (07:11)
[2021-01-09] MEDS: BUDESONIDE 0.5 MG/2 ML NEBU. NEB SCH ×2 (07:42→20:35)
[2021-01-09] MEDS: IPRATRPIUM/ALBUTEROL 0.5/2.5MG 3 ML NEBU. NEB SCH ×4 (07:42→20:35)
--- NOTE | 2021-01-09 08:31 | PDOC ---
SURGICAL PROGRESS NOTE DATE: 01/09/21 TIME: 08:30 Subjective Doing ok, has passed flatus. No BM Cough up sputum Vital Signs Vital Signs Date Time Temp Pulse Resp B/P (MAP) Pulse Ox O2 Delivery O2 Flow Rate FiO2 01/09/21 07:45 92 Nasal Cannula 5.0 01/09/21 07:10 96.5 66 18 119/63 (81) 96.5 I&O Intake and Output 01/09/21 07:00 Intake Total 1503 ml Output Total 2225 ml Balance -722 ml IV Total 1503 ml Output Urine Total 2225 ml PATIENT HAS A MOTA: Yes General: Alert, Cooperative, mild distress Abdomen: Normal bowel sounds, Soft, Other (mild incisional tenderness wound c/d/i) Labs Laboratory Tests Test 01/09/21 03:30 White Blood Count 7.3 x10^3/uL (4.0-11.0) Red Blood Count 3.39 x10^6/uL (4.30-5.70) Hemoglobin 8.3 g/dL (13.0-17.5) Hematocrit 28.0 % (39.0-53.0) Mean Corpuscular Volume 83 fL (79-100) Mean Corpuscular Hemoglobin 25 pg (25-35) Mean Corpuscular Hemoglobin Concent 30 g/dL (31-37) Red Cell Distribution Width 26.3 % (11.5-14.5) Platelet Count 129 x10^3/uL (140-400) Neutrophils (%) (Auto) 82 % (31-73) Lymphocytes (%) (Auto) 7 % (24-48) Monocytes (%) (Auto) 9 % (0-9) Eosinophils (%) (Auto) 1 % (0-3) Basophils (%) (Auto) 1 % (0-3) Neutrophils # (Auto) 5.9 x10^3/uL (1.8-7.7) Lymphocytes # (Auto) 0.5 x10^3/uL (1.0-4.8) Monocytes # (Auto) 0.7 x10^3/uL (0.0-1.1) Eosinophils # (Auto) 0.1 x10^3/uL (0.0-0.7) Basophils # (Auto) 0.1 x10^3/uL (0.0-0.2) Sodium Level 142 mmol/L (136-145) Potassium Level 4.7 mmol/L (3.5-5.1) Chloride Level 108 mmol/L (98-107) Carbon Dioxide Level 27 mmol/L (21-32) Anion Gap 7 (6-14) Blood Urea Nitrogen 37 mg/dL (8-26) Creatinine 1.4 mg/dL (0.7-1.3) Estimated GFR (Cockcroft-Gault) 49.1 BUN/Creatinine Ratio 26 (6-20) Glucose Level 116 mg/dL (70-99) Calcium Level 7.7 mg/dL (8.5-10.1) Total Bilirubin 2.8 mg/dL (0.2-1.0) Aspartate Amino Transf (AST/SGOT) 110 U/L (15-37) Alanine Aminotransferase (ALT/SGPT) 114 U/L (16-63) Alkaline Phosphatase 102 U/L (46-116) Total Protein 5.6 g/dL (6.4-8.2) Albumin 2.3 g/dL (3.4-5.0) Albumin/Globulin Ratio 0.7 (1.0-1.7) Laboratory Tests Test 01/09/21 03:30 White Blood Count 7.3 x10^3/uL (4.0-11.0) Red Blood Count 3.39 x10^6/uL (4.30-5.70) Hemoglobin 8.3 g/dL (13.0-17.5) Hematocrit 28.0 % (39.0-53.0) Mean Corpuscular Volume 83 fL (79-100) Mean Corpuscular Hemoglobin 25 pg (25-35) Mean Corpuscular Hemoglobin Concent 30 g/dL (31-37) Red Cell Distribution Width 26.3 % (11.5-14.5) Platelet Count 129 x10^3/uL (140-400) Neutrophils (%) (Auto) 82 % (31-73) Lymphocytes (%) (Auto) 7 % (24-48) Monocytes (%) (Auto) 9 % (0-9) Eosinophils (%) (Auto) 1 % (0-3) Basophils (%) (Auto) 1 % (0-3) Neutrophils # (Auto) 5.9 x10^3/uL (1.8-7.7) Lymphocytes # (Auto) 0.5 x10^3/uL (1.0-4.8) Monocytes # (Auto) 0.7 x10^3/uL (0.0-1.1) Eosinophils # (Auto) 0.1 x10^3/uL (0.0-0.7) Basophils # (Auto) 0.1 x10^3/uL (0.0-0.2) Sodium Level 142 mmol/L (136-145) Potassium Level 4.7 mmol/L (3.5-5.1) Chloride Level 108 mmol/L (98-107) Carbon Dioxide Level 27 mmol/L (21-32) Anion Gap 7 (6-14) Blood Urea Nitrogen 37 mg/dL (8-26) Creatinine 1.4 mg/dL (0.7-1.3) Estimated GFR (Cockcroft-Gault) 49.1 BUN/Creatinine Ratio 26 (6-20) Glucose Level 116 mg/dL (70-99) Calcium Level 7.7 mg/dL (8.5-10.1) Total Bilirubin 2.8 mg/dL (0.2-1.0) Aspartate Amino Transf (AST/SGOT) 110 U/L (15-37) Alanine Aminotransferase (ALT/SGPT) 114 U/L (16-63) Alkaline Phosphatase 102 U/L (46-116) Total Protein 5.6 g/dL (6.4-8.2) Albumin 2.3 g/dL (3.4-5.0) Albumin/Globulin Ratio 0.7 (1.0-1.7) Problem List Problems Medical Problems: (1) Abdominal pain Status: Acute Assessment/Plan S/P colon resection will obtain swallow study prior to advancing diet Justicifation of Admission Dx: Justifications for Admission: Justification of Admission Dx: Yes Respiratory Failure: Severe Resp Distress NISH DUMONT MD Jan 09, 2021 08:31
[2021-01-09] MEDS: FUROSEMIDE 20 MG/2 ML VIAL. IVP SCH (09:02)
[2021-01-09] MEDS: BISACODYL 10 MG SUPP.RECT. PR SCH (09:02)
[2021-01-09] MEDS: IPRATROPIUM BROMIDE 0.06% NASAL SPRAY 15ML BOTTLE. NS SCH ×2 (09:08→21:28)
[2021-01-09] MEDS: ONDANSETRON PF 4 MG/2 ML VIAL. IVP PRN ×2 (10:13→17:11)
--- NOTE | 2021-01-09 10:56 | PDOC ---
PULMONARY PROGRESS NOTES DATE: 01/09/21 TIME: 10:54 Subjective Patient denies sob cough Currently on nasal canula abd pain better, passed gas having ice chips S/P LAP Vitals Vital Signs Date Time Temp Pulse Resp B/P (MAP) Pulse Ox O2 Delivery O2 Flow Rate FiO2 01/09/21 07:45 92 Nasal Cannula 5.0 01/09/21 07:10 96.5 66 18 119/63 (81) 96.5 ROS: No Nausea, No Chest Pain, No Abdominal Pain, No Increase Cough General: Alert, No acute distress HEENT: Other Lungs: Clear Cardiovascular: S1, S2 Abdomen: Soft, Non-tender, Other (distended ) Neuro Exam: Alert Extremities: Other (Edema) Skin: Warm Labs Laboratory Tests Test 01/09/21 03:30 White Blood Count 7.3 x10^3/uL (4.0-11.0) Red Blood Count 3.39 x10^6/uL (4.30-5.70) Hemoglobin 8.3 g/dL (13.0-17.5) Hematocrit 28.0 % (39.0-53.0) Mean Corpuscular Volume 83 fL (79-100) Mean Corpuscular Hemoglobin 25 pg (25-35) Mean Corpuscular Hemoglobin Concent 30 g/dL (31-37) Red Cell Distribution Width 26.3 % (11.5-14.5) Platelet Count 129 x10^3/uL (140-400) Neutrophils (%) (Auto) 82 % (31-73) Lymphocytes (%) (Auto) 7 % (24-48) Monocytes (%) (Auto) 9 % (0-9) Eosinophils (%) (Auto) 1 % (0-3) Basophils (%) (Auto) 1 % (0-3) Neutrophils # (Auto) 5.9 x10^3/uL (1.8-7.7) Lymphocytes # (Auto) 0.5 x10^3/uL (1.0-4.8) Monocytes # (Auto) 0.7 x10^3/uL (0.0-1.1) Eosinophils # (Auto) 0.1 x10^3/uL (0.0-0.7) Basophils # (Auto) 0.1 x10^3/uL (0.0-0.2) Sodium Level 142 mmol/L (136-145) Potassium Level 4.7 mmol/L (3.5-5.1) Chloride Level 108 mmol/L (98-107) Carbon Dioxide Level 27 mmol/L (21-32) Anion Gap 7 (6-14) Blood Urea Nitrogen 37 mg/dL (8-26) Creatinine 1.4 mg/dL (0.7-1.3) Estimated GFR (Cockcroft-Gault) 49.1 BUN/Creatinine Ratio 26 (6-20) Glucose Level 116 mg/dL (70-99) Calcium Level 7.7 mg/dL (8.5-10.1) Total Bilirubin 2.8 mg/dL (0.2-1.0) Aspartate Amino Transf (AST/SGOT) 110 U/L (15-37) Alanine Aminotransferase (ALT/SGPT) 114 U/L (16-63) Alkaline Phosphatase 102 U/L (46-116) Total Protein 5.6 g/dL (6.4-8.2) Albumin 2.3 g/dL (3.4-5.0) Albumin/Globulin Ratio 0.7 (1.0-1.7) Laboratory Tests Test 01/09/21 03:30 White Blood Count 7.3 x10^3/uL (4.0-11.0) Red Blood Count 3.39 x10^6/uL (4.30-5.70) Hemoglobin 8.3 g/dL (13.0-17.5) Hematocrit 28.0 % (39.0-53.0) Mean Corpuscular Volume 83 fL (79-100) Mean Corpuscular Hemoglobin 25 pg (25-35) Mean Corpuscular Hemoglobin Concent 30 g/dL (31-37) Red Cell Distribution Width 26.3 % (11.5-14.5) Platelet Count 129 x10^3/uL (140-400) Neutrophils (%) (Auto) 82 % (31-73) Lymphocytes (%) (Auto) 7 % (24-48) Monocytes (%) (Auto) 9 % (0-9) Eosinophils (%) (Auto) 1 % (0-3) Basophils (%) (Auto) 1 % (0-3) Neutrophils # (Auto) 5.9 x10^3/uL (1.8-7.7) Lymphocytes # (Auto) 0.5 x10^3/uL (1.0-4.8) Monocytes # (Auto) 0.7 x10^3/uL (0.0-1.1) Eosinophils # (Auto) 0.1 x10^3/uL (0.0-0.7) Basophils # (Auto) 0.1 x10^3/uL (0.0-0.2) Sodium Level 142 mmol/L (136-145) Potassium Level 4.7 mmol/L (3.5-5.1) Chloride Level 108 mmol/L (98-107) Carbon Dioxide Level 27 mmol/L (21-32) Anion Gap 7 (6-14) Blood Urea Nitrogen 37 mg/dL (8-26) Creatinine 1.4 mg/dL (0.7-1.3) Estimated GFR (Cockcroft-Gault) 49.1 BUN/Creatinine Ratio 26 (6-20) Glucose Level 116 mg/dL (70-99) Calcium Level 7.7 mg/dL (8.5-10.1) Total Bilirubin 2.8 mg/dL (0.2-1.0) Aspartate Amino Transf (AST/SGOT) 110 U/L (15-37) Alanine Aminotransferase (ALT/SGPT) 114 U/L (16-63) Alkaline Phosphatase 102 U/L (46-116) Total Protein 5.6 g/dL (6.4-8.2) Albumin 2.3 g/dL (3.4-5.0) Albumin/Globulin Ratio 0.7 (1.0-1.7) Medications Active Scripts Medications Dose Route/Sig Max Daily Dose Days Date Category Sertraline Hcl 50 Mg Tablet 50 Mg PO DAILY 12/29/20 Reported Budesonide 0.5 Mg/2 Ml Ampul.neb 1 Vial NEB BID 12/29/20 Reported Tudorza Pressair (Aclidinium [place]) 400 Mcg Aer.pow.ba 1 Puff IH BID 12/29/20 Reported Ipratropium [place] 0.2 Mg/1 Ml Solution 1 Vial NEB QID 12/29/20 Reported Klor-Con 10 (Potassium Chloride) 10 Meq Tablet.er 1 Tab PO DAILY 30 12/29/20 Reported Lyrica (Pregabalin) 75 Mg Capsule 1 Cap PO BID 12/29/20 Reported Lisinopril 5 Mg Tablet 5 Mg PO DAILY 10/17/20 Rx Senna Plus Tablet (Sennosides/Docusate Sodium) 1 Each Tablet 2 Tab PO QHS 14 10/01/20 Rx Ipratropium [place] 15 Ml [place] 2 Sprays NS BID 07/08/20 Reported Metoprolol Succinate ( Xl ) (Metoprolol Succinate) 25 Mg Tab.er.24h 1 Tab PO DAILY 30 07/08/20 Reported Pantoprazole Sodium 40 Mg Tablet.dr 1 Tab PO DAILY 30 07/08/20 Reported Gabapentin (Gabapentin) 300 Mg Capsule 300 Mg PO DAILYWSUP 06/30/19 Reported Aspirin 81 Mg Tab.chew 81 Mg PO DAILY 06/30/19 Reported Furosemide 40 Mg Tablet 40 Mg PO DAILY MDD 1 10/19/18 Rx Lovastatin 40 Mg Tablet 1 Tab PO DAILY 12/14/14 Reported Impression . IMPRESSION: 1. Chronic respiratory failure, multifactorial secondary to severe chronic obstructive pulmonary disease, coronary artery disease, previous coronary artery bypass grafting and deconditioning. 2. Cardiomyopathy, status post coronary artery bypass grafting. 3. Chronic atrial fibrillation. 4. Recent diagnosis of colon cancer. S/P open right colon resection, liver biopsy 5. Ascites 6. Cephalic vein thrombosis Plan . Respiratory status is compensated, 02 titration on home 02 4 lpm avoid over sedation Incentive spirometry the importance of use discussed Bronchodilators/ICS DVT prophylaxis surgery rec TPN per surgery increase activity discussed w pt, rn KANCHAN MÁRQUEZ MD Jan 09, 2021 10:56
[2021-01-09 11:07] VITALS: BP 124/69
[2021-01-09] MEDS: IV NORMAL SALINE 1000ML BAG 1,000 ML IV SCH (12:00)
--- NOTE | 2021-01-09 12:11 | PDOC ---
PROGRESS NOTES Date of Service DATE: 01/09/21 TIME: 12:10 Subjective Subjective Patient seen and examined Objective Objective Vital Signs Date Time Temp Pulse Resp B/P (MAP) Pulse Ox O2 Delivery O2 Flow Rate FiO2 01/09/21 11:46 92 Nasal Cannula 5.0 01/09/21 11:07 96.1 70 18 124/69 (87) 96.1 Intake and Output 01/09/21 07:00 Intake Total 1503 ml Output Total 2225 ml Balance -722 ml IV Total 1503 ml Output Urine Total 2225 ml Physical Exam Abdomen: Normal bowel sounds Heart: Regular rate General: mild distress Lungs: Clear to auscultation Assessment Assessment Problems Medical Problems: (1) Abdominal pain Status: Acute Mild acute on chronic systolic CHF; compensated ICM: Echo 10/24 with LVEF 30-35%. S/p [employer] ([employer]). Device check 10/24 with normal function. stable lead impedances, adequate batter life at 20%. AFIB burden > 99%. CAD: past CABG and PCI. Most recent PCI/stents 12/2015. Clinically stable. Anemia, coagulopathy; s/p transfusion. Continuing to monitor lab. Colon CA with obstructing colonic mass; s/p open colon resection. POD#5. Has passed flatus. Swallow study as per general surgery. Persistent AFIB; v-paced with underlying AFIB, rate controlled Hypertension; controlled Hyperlipidemia; statin GRUPO on CKD; back to baseline COPD with home O2 use Left cephalic vein thrombus Comment Review of Relevant I have reviewed the following items jay (where applicable) has been applied. Labs Laboratory Tests Test 01/09/21 03:30 White Blood Count 7.3 x10^3/uL (4.0-11.0) Red Blood Count 3.39 x10^6/uL (4.30-5.70) Hemoglobin 8.3 g/dL (13.0-17.5) Hematocrit 28.0 % (39.0-53.0) Mean Corpuscular Volume 83 fL (79-100) Mean Corpuscular Hemoglobin 25 pg (25-35) Mean Corpuscular Hemoglobin Concent 30 g/dL (31-37) Red Cell Distribution Width 26.3 % (11.5-14.5) Platelet Count 129 x10^3/uL (140-400) Neutrophils (%) (Auto) 82 % (31-73) Lymphocytes (%) (Auto) 7 % (24-48) Monocytes (%) (Auto) 9 % (0-9) Eosinophils (%) (Auto) 1 % (0-3) Basophils (%) (Auto) 1 % (0-3) Neutrophils # (Auto) 5.9 x10^3/uL (1.8-7.7) Lymphocytes # (Auto) 0.5 x10^3/uL (1.0-4.8) Monocytes # (Auto) 0.7 x10^3/uL (0.0-1.1) Eosinophils # (Auto) 0.1 x10^3/uL (0.0-0.7) Basophils # (Auto) 0.1 x10^3/uL (0.0-0.2) Sodium Level 142 mmol/L (136-145) Potassium Level 4.7 mmol/L (3.5-5.1) Chloride Level 108 mmol/L (98-107) Carbon Dioxide Level 27 mmol/L (21-32) Anion Gap 7 (6-14) Blood Urea Nitrogen 37 mg/dL (8-26) Creatinine 1.4 mg/dL (0.7-1.3) Estimated GFR (Cockcroft-Gault) 49.1 BUN/Creatinine Ratio 26 (6-20) Glucose Level 116 mg/dL (70-99) Calcium Level 7.7 mg/dL (8.5-10.1) Total Bilirubin 2.8 mg/dL (0.2-1.0) Aspartate Amino Transf (AST/SGOT) 110 U/L (15-37) Alanine Aminotransferase (ALT/SGPT) 114 U/L (16-63) Alkaline Phosphatase 102 U/L (46-116) Total Protein 5.6 g/dL (6.4-8.2) Albumin 2.3 g/dL (3.4-5.0) Albumin/Globulin Ratio 0.7 (1.0-1.7) Laboratory Tests Test 01/09/21 03:30 White Blood Count 7.3 x10^3/uL (4.0-11.0) Red Blood Count 3.39 x10^6/uL (4.30-5.70) Hemoglobin 8.3 g/dL (13.0-17.5) Hematocrit 28.0 % (39.0-53.0) Mean Corpuscular Volume 83 fL (79-100) Mean Corpuscular Hemoglobin 25 pg (25-35) Mean Corpuscular Hemoglobin Concent 30 g/dL (31-37) Red Cell Distribution Width 26.3 % (11.5-14.5) Platelet Count 129 x10^3/uL (140-400) Neutrophils (%) (Auto) 82 % (31-73) Lymphocytes (%) (Auto) 7 % (24-48) Monocytes (%) (Auto) 9 % (0-9) Eosinophils (%) (Auto) 1 % (0-3) Basophils (%) (Auto) 1 % (0-3) Neutrophils # (Auto) 5.9 x10^3/uL (1.8-7.7) Lymphocytes # (Auto) 0.5 x10^3/uL (1.0-4.8) Monocytes # (Auto) 0.7 x10^3/uL (0.0-1.1) Eosinophils # (Auto) 0.1 x10^3/uL (0.0-0.7) Basophils # (Auto) 0.1 x10^3/uL (0.0-0.2) Sodium Level 142 mmol/L (136-145) Potassium Level 4.7 mmol/L (3.5-5.1) Chloride Level 108 mmol/L (98-107) Carbon Dioxide Level 27 mmol/L (21-32) Anion Gap 7 (6-14) Blood Urea Nitrogen 37 mg/dL (8-26) Creatinine 1.4 mg/dL (0.7-1.3) Estimated GFR (Cockcroft-Gault) 49.1 BUN/Creatinine Ratio 26 (6-20) Glucose Level 116 mg/dL (70-99) Calcium Level 7.7 mg/dL (8.5-10.1) Total Bilirubin 2.8 mg/dL (0.2-1.0) Aspartate Amino Transf (AST/SGOT) 110 U/L (15-37) Alanine Aminotransferase (ALT/SGPT) 114 U/L (16-63) Alkaline Phosphatase 102 U/L (46-116) Total Protein 5.6 g/dL (6.4-8.2) Albumin 2.3 g/dL (3.4-5.0) Albumin/Globulin Ratio 0.7 (1.0-1.7) Microbiology 12/29/20 Blood Culture - Final, Complete NO GROWTH AFTER 5 DAYS Medications Current Medications Phytonadione (Vitamin K Ampule) 10 mg 1X ONCE SQ Last administered on 12/29/20at 12:57; Start 12/29/20 at 12:30; Stop 12/29/20 at 12:31; Status DC Piperacillin Sod/ Tazobactam Sod (Zosyn Per Pharmacy) 1 each PRN DAILY PRN MC SEE COMMENTS; Start 12/29/20 at 12:30; Stop 12/30/20 at 13:32; Status DC Piperacillin Sod/ Tazobactam Sod 3.375 gm/Sodium Chloride 50 ml @ 100 mls/hr ONCE ONCE IV Last administered on 12/29/20at 14:18; Start 12/29/20 at 13:00; Stop 12/29/20 at 13:29; Status DC Piperacillin Sod/ Tazobactam Sod 3.375 gm/Sodium Chloride 50 ml @ 100 mls/hr Q6HRS IV Last administered on 12/30/20at 12:01; Start 12/29/20 at 19:00; Stop 12/30/20 at 13:32; Status DC Aspirin (Aspirin Chewable) 81 mg DAILY PO Last administered on 01/03/21at 09:37; Start 12/30/20 at 12:30 Furosemide (Lasix) 40 mg DAILY PO Last administered on 01/03/21at 12:59; Start 12/30/20 at 12:30; Stop 01/08/21 at 07:50; Status DC Gabapentin (Neurontin) 300 mg DAILYWSUP PO Last administered on 01/03/21at 09:43; Start 12/30/20 at 17:00 Ipratropium [place] (Atrovent) 1 mg QID NEB ; Start 12/30/20 at 13:00; Stop 12/30/20 at 11:54; Status DC Ipratropium [place] (Atrovent Nasal) 2 spray BID NS Last administered on 01/09/21at 09:08; Start 12/30/20 at 21:00 Lisinopril (Prinivil) 5 mg DAILY PO Last administered on 01/01/21at 08:15; Start 12/30/20 at 12:30 Metoprolol Succinate (Toprol Xl) 25 mg DAILY PO Last administered on 01/08/21at 21:14; Start 12/30/20 at 12:30 Pantoprazole Sodium (Protonix) 40 mg DAILYAC PO Last administered on 01/03/21at 09:46; Start 12/30/20 at 12:30 Pregabalin (Lyrica) 75 mg BID PO Last administered on 01/08/21 21:14; Start 12/30/20 at 21:00 Senna/Docusate Sodium (Senna Plus) 2 tab QHS PO Last administered on 01/08/21 21:14; Start 12/30/20 at 21:00 Sertraline HCl (Zoloft) 50 mg DAILY PO Last administered on 01/03/21 09:36; Start 12/30/20 at 12:30 Albuterol/ Ipratropium (Duoneb) 3 ml RTQID NEB Last administered on 01/09/21at 11:46; Start 12/30/20 at 12:00 Atorvastatin Calcium (Lipitor) 10 mg DAILY PO Last administered on 01/03/21 09:36; Start 12/30/20 at 12:30 Potassium Chloride (Klor-Con) 10 meq DAILYWBKFT PO Last administered on 01/03/21at 09:37; Start 12/30/20 at 12:30 Fentanyl Citrate (Fentanyl 2ml Vial) 25 mcg PRN Q5MIN PRN IVP MILD PAIN 1-3; Start 12/31/20 at 06:00; Stop 01/01/21 at 05:59; Status DC Fentanyl Citrate (Fentanyl 2ml Vial) 50 mcg PRN Q5MIN PRN IVP MODERATE PAIN 4- 6; Start 12/31/20 at 06:00; Stop 01/01/21 at 05:59; Status DC Morphine Sulfate (Morphine Sulfate) 1 mg PRN Q10MIN PRN IVP SEVERE PAIN 7-10; Start 12/31/20 at 06:00; Stop 01/01/21 at 05:59; Status DC Ringer's Solution 1,000 ml @ 30 mls/hr Q24H IV ; Start 12/31/20 at 06:00; Stop 12/31/20 at 17:59; Status DC Hydromorphone HCl (Dilaudid) 0.5 mg PRN Q10MIN PRN IVP SEVERE PAIN 7-10, 2nd CHOICE; Start 12/31/20 at 06:00; Stop 01/01/21 at 05:59; Status DC Prochlorperazine Edisylate (Compazine) 5 mg PACU PRN PRN IVP NAUSEA, MRX1; Start 12/31/20 at 06:00; Stop 01/01/21 at 05:59; Status DC Fentanyl Citrate (Fentanyl 2ml Vial) 25 mcg PRN Q5MIN PRN IVP MILD PAIN 1-3; Start 12/31/20 at 06:00; Stop 01/01/21 at 05:59; Status UNV Fentanyl Citrate (Fentanyl 2ml Vial) 50 mcg PRN Q5MIN PRN IVP MODERATE PAIN 4- 6; Start 12/31/20 at 06:00; Stop 01/01/21 at 05:59; Status UNV Morphine Sulfate (Morphine Sulfate) 1 mg PRN Q10MIN PRN IVP SEVERE PAIN 7-10; Start 12/31/20 at 06:00; Stop 01/01/21 at 05:59; Status UNV Ringer's Solution 1,000 ml @ 30 mls/hr Q24H IV ; Start 12/31/20 at 06:00; Stop 12/31/20 at 17:59; Status UNV Hydromorphone HCl (Dilaudid) 0.5 mg PRN Q10MIN PRN IVP SEVERE PAIN 7-10, 2nd CHOICE; Start 12/31/20 at 06:00; Stop 01/01/21 at 05:59; Status UNV Prochlorperazine Edisylate (Compazine) 5 mg PACU PRN PRN IVP NAUSEA, MRX1; Start 12/31/20 at 06:00; Stop 01/01/21 at 05:59; Status UNV Furosemide (Lasix) 40 mg 1X ONCE IVP Last administered on 12/30/20at 17:27; Start 12/30/20 at 17:00; Stop 12/30/20 at 17:01; Status DC Glycopyrrolate (Robinul) 1 mg STK-MED ONCE .ROUTE ; Start 12/31/20 at 08:23; Stop 12/31/20 at 08:23; Status DC Propofol (Diprivan) 200 mg STK-MED ONCE IV ; Start 12/31/20 at 08:23; Stop 12/31/20 at 08:23; Status DC Etomidate (Amidate) 20 mg STK-MED ONCE IV ; Start 12/31/20 at 08:23; Stop 12/31/20 at 08:24; Status DC Lidocaine HCl (Lidocaine Pf 2% Vial) 5 ml STK-MED ONCE .ROUTE ; Start 12/31/20 at 08:24; Stop 12/31/20 at 08:24; Status DC Phenylephrine HCl (PHENYLEPHRINE in 0.9% NACL PF) 1 mg STK-MED ONCE IV ; Start 12/31/20 at 08:24; Stop 12/31/20 at 08:24; Status DC Ephedrine Sulfate (ePHEDrine PF IN SALINE SYRINGE) 50 mg STK-MED ONCE IV ; Start 12/31/20 at 08:24; Stop 12/31/20 at 08:24; Status DC Succinylcholine Chloride (Anectine) 200 mg STK-MED ONCE .ROUTE ; Start 12/31/20 at 08:24; Stop 12/31/20 at 08:24; Status DC Rocuronium [place] (Zemuron) 50 mg STK-MED ONCE .ROUTE ; Start 12/31/20 at 08:24; Stop 12/31/20 at 08:25; Status DC Fentanyl Citrate (Fentanyl 2ml Vial) 100 mcg STK-MED ONCE .ROUTE ; Start 12/31/20 at 08:25; Stop 12/31/20 at 08:25; Status DC Phenylephrine HCl (Can-Synephrine Inj) 10 mg STK-MED ONCE .ROUTE ; Start 12/31/20 at 08:28; Stop 12/31/20 at 08:28; Status DC Bisacodyl (Dulcolax Supp) 10 mg DAILY NH Last administered on 01/09/21at 09:02; Start 12/31/20 at 12:00 Polyethylene Glycol (miraLAX PACKET) 17 gm DAILY PO Last administered on 01/03/21at 09:35; Start 12/31/20 at 12:00 Iron Sucrose 500 mg/Sodium Chloride 275 ml @ 78.571 mls/ hr 1X ONCE IV Last administered on 12/31/20at 16:06; Start 12/31/20 at 13:00; Stop 12/31/20 at 16:29; Status DC Budesonide (Pulmicort) 0.5 mg RTBID NEB Last administered on 01/09/21at 07:42; Start 01/02/21 at 20:00 Temazepam (Restoril) 15 mg PRN QHS PRN PO INSOMNIA Last administered on 01/03/21at 20:53; Start 01/02/21 at 21:45 Oxymetazoline HCl (Afrin) 2 spray PRN BID PRN NS CONGESTION Last administered on 01/03/21at 09:36; Start 01/02/21 at 21:45 Guaifenesin (Mucinex) 600 mg BID PO Last administered on 01/08/21at 21:14; Start 01/02/21 at 22:00 Fentanyl Citrate (Fentanyl 2ml Vial) 25 mcg PRN Q5MIN PRN IVP MILD PAIN 1-3 Last administered on 01/04/21at 12:39; Start 01/04/21 at 06:00; Stop 01/05/21 at 05:59; Status DC Fentanyl Citrate (Fentanyl 2ml Vial) 50 mcg PRN Q5MIN PRN IVP MODERATE PAIN 4- 6; Start 01/04/21 at 06:00; Stop 01/05/21 at 05:59; Status DC Morphine Sulfate (Morphine Sulfate) 1 mg PRN Q10MIN PRN IVP SEVERE PAIN 7-10; Start 01/04/21 at 06:00; Stop 01/05/21 at 05:59; Status DC Ringer's Solution 1,000 ml @ 30 mls/hr Q24H IV Last administered on 01/04/21at 08:15; Start 01/04/21 at 06:00; Stop 01/04/21 at 17:59; Status DC Hydromorphone HCl (Dilaudid) 0.5 mg PRN Q10MIN PRN IVP SEVERE PAIN 7-10, 2nd CHOICE Last administered on 01/04/21at 13:44; Start 01/04/21 at 06:00; Stop 01/05/21 at 05:59; Status DC Prochlorperazine Edisylate (Compazine) 5 mg PACU PRN PRN IVP NAUSEA, MRX1; Start 01/04/21 at 06:00; Stop 01/05/21 at 05:59; Status DC Ceftriaxone Sodium (Rocephin) 1 gm 1X PREOP IVP Last administered on 01/04/21at 09:48; Start 01/04/21 at 09:00; Stop 01/05/21 at 11:22; Status DC Metronidazole 100 ml @ 100 mls/hr 1X PREOP IV Last administered on 01/04/21at 09:49; Start 01/04/21 at 09:00; Stop 01/04/21 at 18:00; Status DC Lidocaine HCl (Xylocaine-Mpf 1% 2ml Vial) 2 ml STK-MED ONCE .ROUTE ; Start 01/04/21 at 08:08; Stop 01/04/21 at 08:09; Status DC Propofol (Diprivan) 200 mg STK-MED ONCE IV ; Start 01/04/21 at 08:29; Stop 01/04/21 at 08:30; Status DC Lidocaine HCl (Lidocaine Pf 2% Vial) 5 ml STK-MED ONCE .ROUTE ; Start 01/04/21 at 08:29; Stop 01/04/21 at 08:30; Status DC Ondansetron HCl (Zofran) 4 mg STK-MED ONCE .ROUTE ; Start 01/04/21 at 08:29; Stop 01/04/21 at 08:30; Status DC Dexamethasone Sodium Phosphate (Decadron) 4 mg STK-MED ONCE .ROUTE ; Start 01/04/21 at 08:29; Stop 01/04/21 at 08:30; Status DC Succinylcholine Chloride (Anectine) 200 mg STK-MED ONCE .ROUTE ; Start 01/04/21 at 08:30; Stop 01/04/21 at 08:30; Status DC Rocuronium [place] (Zemuron) 50 mg STK-MED ONCE .ROUTE ; Start 01/04/21 at 08:30; Stop 01/04/21 at 08:30; Status DC Fentanyl Citrate (Fentanyl 2ml Vial) 100 mcg STK-MED ONCE .ROUTE ; Start 01/04/21 at 08:30; Stop 01/04/21 at 08:30; Status DC Phenylephrine HCl (Can-Synephrine Inj) 10 mg STK-MED ONCE .ROUTE ; Start 01/04/21 at 08:55; Stop 01/04/21 at 08:56; Status DC Rocuronium [place] (Zemuron) 50 mg STK-MED ONCE .ROUTE ; Start 01/04/21 at 09:43; Stop 01/04/21 at 09:43; Status DC Cellulose (Surgicel Hemostat 4x8) 1 each STK-MED ONCE .ROUTE Last administered on 01/04/21at 09:42; Start 01/04/21 at 10:43; Stop 01/04/21 at 10:44; Status DC Cellulose (Surgicel Hemostat 4x8) 1 each STK-MED ONCE .ROUTE Last administered on 01/04/21at 09:42; Start 01/04/21 at 10:43; Stop 01/04/21 at 10:44; Status DC Cellulose (Surgicel Hemostat 4x8) 1 each STK-MED ONCE .ROUTE ; Start 01/04/21 at 10:47; Stop 01/04/21 at 10:48; Status Cancel Cellulose (Surgicel Hemostat 4x8) 1 each STK-MED ONCE .ROUTE ; Start 01/04/21 at 10:47; Stop 01/04/21 at 10:48; Status Cancel Cellulose (Surgicel Hemostat 4x8) 1 each STK-MED ONCE .ROUTE ; Start 01/04/21 at 10:47; Stop 01/04/21 at 10:48; Status Cancel Sevoflurane (Ultane) 90 ml STK-MED ONCE IH ; Start 01/04/21 at 11:03; Stop 01/04/21 at 11:04; Status DC Enoxaparin Sodium (Lovenox 40mg Syringe) 40 mg Q24H SQ Last administered on 01/08/21at 17:50; Start 01/04/21 at 16:00 Sodium Chloride (Normal Saline Flush) 3 ml QSHIFT PRN IV AFTER MEDS AND BLOOD DRAWS; Start 01/04/21 at 11:30 Ringer's Solution 1,000 ml @ 100 mls/hr Q10H IV Last administered on 01/08/21at 05:42; Start 01/04/21 at 12:00; Stop 01/08/21 at 11:37; Status DC Fentanyl Citrate 30 ml @ 0 mls/hr CONT PRN PRN IV PER PROTOCOL Last administere d on 01/08/21at 17:56; Start 01/04/21 at 11:30 Naloxone HCl (Narcan) 0.4 mg PRN Q2MIN PRN IV SEE INSTRUCTIONS; Start 01/04/21 at 11:30 Sodium Chloride 1,000 ml @ 25 mls/hr Q24H IV Last administered on 01/08/21at 12:00; Start 01/04/21 at 12:00 Ondansetron HCl (Zofran) 4 mg PRN Q6HRS PRN IVP NAUESA, 1ST CHOICE Last administered on 01/09/21at 10:13; Start 01/04/21 at 11:30 Fentanyl Citrate (Fentanyl 2ml Vial) 100 mcg STK-MED ONCE .ROUTE ; Start 01/04/21 at 11:55; Stop 01/04/21 at 11:55; Status DC Fentanyl Citrate (Fentanyl 2ml Vial) 100 mcg STK-MED ONCE .ROUTE ; Start 01/04/21 at 12:29; Stop 01/04/21 at 12:29; Status DC Hydromorphone HCl (Dilaudid) 2 mg STK-MED ONCE .ROUTE ; Start 01/04/21 at 12:42; Stop 01/04/21 at 12:42; Status DC Ketamine HCl (Ketamine) 50 mg STK-MED ONCE .ROUTE ; Start 01/04/21 at 15:01; Stop 01/04/21 at 15:02; Status DC Sodium Chloride 250 ml @ 250 mls/hr 1X ONCE IV ; Start 01/05/21 at 06:00; Stop 01/05/21 at 05:37; Status DC Saliva Substitute (Biotene Moisturizing Mouth) 2 spray PRN Q15MIN PRN PO DRY MOUTH Last administered on 01/05/21at 17:47; Start 01/05/21 at 10:00 Metoprolol Tartrate (Lopressor Vial) 5 mg PRN Q5MIN PRN IVP TACHYCARDIA; Start 01/05/21 at 14:00 Pantoprazole Sodium (PROTONIX VIAL for IV PUSH) 40 mg 1X ONCE IVP Last administered on 01/06/21at 08:21; Start 01/06/21 at 08:30; Stop 01/06/21 at 08:31; Status DC Metoprolol Tartrate (Lopressor Vial) 2.5 mg Q6HRS IVP Last administered on 01/08/21at 17:53; Start 01/06/21 at 18:00 Furosemide (Lasix) 20 mg DAILY IVP Last administered on 01/09/21at 09:02; Start 01/08/21 at 09:00 Furosemide (Lasix) 40 mg 1X ONCE IVP Last administered on 01/07/21at 10:50; Start 01/07/21 at 10:45; Stop 01/07/21 at 10:46; Status DC Amino Acids/ Glycerin/ Electrolytes 1,000 ml @ 80 mls/hr [id number] IV Last administered on 01/09/21at 01:51; Start 01/08/21 at 12:00 Sodium Chloride 500 ml @ 500 mls/hr 1X ONCE IV Last administered on 01/08/21at 12:44; Start 01/08/21 at 11:45; Stop 01/08/21 at 12:44; Status DC Active Scripts Active Lisinopril 5 Mg Tablet 5 Mg PO DAILY Senna Plus Tablet (Sennosides/Docusate Sodium) 1 Each Tablet 2 Tab PO QHS 14 Days Furosemide 40 Mg Tablet 40 Mg PO DAILY MDD 1 Reported Sertraline Hcl 50 Mg Tablet 50 Mg PO DAILY Budesonide 0.5 Mg/2 Ml Ampul.neb 1 Vial NEB BID Tudorza Pressair (Aclidinium [place]) 400 Mcg Aer.pow.ba 1 Puff IH BID Ipratropium [place] 0.2 Mg/1 Ml Solution 1 Vial NEB QID Klor-Con 10 (Potassium Chloride) 10 Meq Tablet.er 1 Tab PO DAILY 30 Days Lyrica (Pregabalin) 75 Mg Capsule 1 Cap PO BID Ipratropium [place] 15 Ml [place] 2 Sprays NS BID Metoprolol Succinate ( Xl ) (Metoprolol Succinate) 25 Mg Tab.er.24h 1 Tab PO DAILY 30 Days Pantoprazole Sodium 40 Mg Tablet.dr 1 Tab PO DAILY 30 Days Gabapentin (Gabapentin) 300 Mg Capsule 300 Mg PO DAILYWSUP Aspirin 81 Mg Tab.chew 81 Mg PO DAILY Lovastatin 40 Mg Tablet 1 Tab PO DAILY Vitals/I & O Vital Sign - Last 24 Hours 01/08/21 01/08/21 01/08/21 01/08/21 12:45 15:00 17:53 17:56 Temp 96.9 96.9 Pulse 71 69 71 Resp 24 16 B/P (MAP) 124/67 119/62 (81) 104/65 Pulse Ox 87 O2 Delivery Nasal Cannula Nasal Cannula O2 Flow Rate 5.0 5.0 01/08/21 01/08/21 01/08/21 01/08/21 19:00 20:00 20:09 21:14 Temp 97.0 97.0 Pulse 70 70 Resp 18 B/P (MAP) 102/57 (72) 102/57 Pulse Ox 89 94 O2 Delivery Nasal Cannula Nasal Cannula Nasal Cannula O2 Flow Rate 5.0 5.0 01/08/21 01/09/21 01/09/21 01/09/21 23:02 00:00 03:32 07:10 Temp 97.2 97.6 96.5 97.2 97.6 96.5 Pulse 68 60 70 66 Resp 18 20 18 B/P (MAP) 105/60 (75) 105/60 92/46 (61) 119/63 (81) Pulse Ox 94 85 86 O2 Delivery Room Air Nasal Cannula Nasal Cannula 01/09/21 01/09/21 01/09/21 07:45 11:07 11:46 Temp 96.1 96.1 Pulse 70 Resp 18 B/P (MAP) 124/69 (87) Pulse Ox 92 93 92 O2 Delivery Nasal Cannula Nasal Cannula Nasal Cannula O2 Flow Rate 5.0 5.0 Intake and Output 01/08/21 01/08/21 01/09/21 15:00 23:00 07:00 Intake Total 1150 ml 353 ml Output Total 1400 ml 600 ml 225 ml Balance -250 ml -247 ml -225 ml Justifications for Admission Other Justification Nutrition Consultation Dietary Evaluation: Recommendations by RD: Dietary education by RD, Protein supplementation Comments: REC resume cardiac diet when appropriate w/Ensure TID as ordered previously REC PPN if unable to advance diet within 24- 48 hrs Expected Outcomes/Goals: Improved po intake-new goal established PO intake >75% estimated nutritional need-new goal established New goal 01/06: Diet advancement s/p colon surgery Malnutrition Findings: Food and Nutrition Intake (Sev: <50% est energy req 5days Weight Status: Overweight Fluid Accumulation (Non-Severe: Mild depletion ERIC OROZCO MD Jan 09, 2021 12:11
--- NOTE | 2021-01-09 13:08 | PDOC ---
[employer] PROGRESS NOTE Date of Service DOS: DATE: 01/09/21 TIME: 13:06 Chief Complaint Chief Complaint Acute Abd pain, fluid overload colon cancer, plan resection 3.2, iron deficiency anemia, obese, BMI 32 weakness, debility depression, insomnia neuropathy History of Present Illness History of Present Illness 01/09, has small amount of stool output, on full liquid, poor PO intake, cont the PPN, needs rehab, he has some emotion today about nto improving much, I discussed at length that everything right now is going well and just takes time, no new complaint 01/08, change fluid from LR to PPN, cont other, pain OK, he reports stool, RN doesnt think so, cont current, if he stools, we can try liquid diet, try OOB to chair 4 L nasal cannula O2. Afebrile. Sit up in chair. Pain is still intermittent. Even with ice chips he is getting some esophageal spasm and pain. Not passing flatus currently. Feeling well overall. Hb 7.9, CR 1.2. Okay to transfer out of ICU. 01/06: On 15L facemask O2, up from home 4L. He is feeling well, asking to eat and drink. Still using his MUSIC MIXER. IV protonix today 01/05: Seen in ICU. On facemask O2. He actually has bowel sounds is reasonably controlled abdominal pain with MUSIC MIXER. His only complaint is dry mouth. 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 Transferred to ICU thereafter. 01/02: Patient seen and examined, sitting up and talkative. He has no new complaints 01/01: Issues swallowing liquids, ordering bedside swallow. He did take a drink and have a coughing fit during our conversation, says this happens frequently 12/31: Patient seen and examined. Discussed surgery date push back 12/30: Discussed CRC prognosis and he wanted a second opinion on the prognosis. Richard Cullen who is willing to complete surgery if patient decides Vitals/I&O Vitals/I&O: Vital Signs Date Time Temp Pulse Resp B/P (MAP) Pulse Ox O2 Delivery O2 Flow Rate FiO2 01/09/21 11:46 92 Nasal Cannula 5.0 01/09/21 11:07 96.1 70 18 124/69 (87) 96.1 I & O 01/08/21 01/08/21 01/09/21 15:00 23:00 07:00 Intake Total 1150 ml 353 ml Output Total 1400 ml 600 ml 225 ml Balance -250 ml -247 ml -225 ml Physical Exam General: mild distress Heart: Regular rate Lungs: Clear Abdomen: Normal bowel sounds Extremities: No clubbing, No cyanosis, Other (Mild edema) Skin: No rashes, Other (Bruising on arms) Labs Labs: Laboratory Tests Test 01/09/21 03:30 White Blood Count 7.3 x10^3/uL (4.0-11.0) Red Blood Count 3.39 x10^6/uL (4.30-5.70) Hemoglobin 8.3 g/dL (13.0-17.5) Hematocrit 28.0 % (39.0-53.0) Mean Corpuscular Volume 83 fL (79-100) Mean Corpuscular Hemoglobin 25 pg (25-35) Mean Corpuscular Hemoglobin Concent 30 g/dL (31-37) Red Cell Distribution Width 26.3 % (11.5-14.5) Platelet Count 129 x10^3/uL (140-400) Neutrophils (%) (Auto) 82 % (31-73) Lymphocytes (%) (Auto) 7 % (24-48) Monocytes (%) (Auto) 9 % (0-9) Eosinophils (%) (Auto) 1 % (0-3) Basophils (%) (Auto) 1 % (0-3) Neutrophils # (Auto) 5.9 x10^3/uL (1.8-7.7) Lymphocytes # (Auto) 0.5 x10^3/uL (1.0-4.8) Monocytes # (Auto) 0.7 x10^3/uL (0.0-1.1) Eosinophils # (Auto) 0.1 x10^3/uL (0.0-0.7) Basophils # (Auto) 0.1 x10^3/uL (0.0-0.2) Sodium Level 142 mmol/L (136-145) Potassium Level 4.7 mmol/L (3.5-5.1) Chloride Level 108 mmol/L (98-107) Carbon Dioxide Level 27 mmol/L (21-32) Anion Gap 7 (6-14) Blood Urea Nitrogen 37 mg/dL (8-26) Creatinine 1.4 mg/dL (0.7-1.3) Estimated GFR (Cockcroft-Gault) 49.1 BUN/Creatinine Ratio 26 (6-20) Glucose Level 116 mg/dL (70-99) Calcium Level 7.7 mg/dL (8.5-10.1) Total Bilirubin 2.8 mg/dL (0.2-1.0) Aspartate Amino Transf (AST/SGOT) 110 U/L (15-37) Alanine Aminotransferase (ALT/SGPT) 114 U/L (16-63) Alkaline Phosphatase 102 U/L (46-116) Total Protein 5.6 g/dL (6.4-8.2) Albumin 2.3 g/dL (3.4-5.0) Albumin/Globulin Ratio 0.7 (1.0-1.7) Review of Systems Review of Systems: weakness, pain OK emotional about situation Assessment and Plan Assessmemt and Plan Problems Medical Problems: (1) Abdominal pain Status: Acute Comment Review of Relevant I have reviewed the following items jay (where applicable) has been applied. Justifications for Admission Other Justification OSMAR DAVIS MD Jan 09, 2021 13:08
--- NOTE | 2021-01-09 13:31 | NUR ---
Non administered Normal Saline IV fluids. Previous bag still running.
[2021-01-09 15:00] VITALS: BP 108/61
[2021-01-09] MEDS: GABAPENTIN 300 MG CAPSULE. PO SCH (16:12)
[2021-01-09] MEDS: ENOXAPARIN 40 MG/0.4 ML SYRINGE. SQ SCH (17:10)
[2021-01-09 19:00] VITALS: BP 112/59
[2021-01-09] MEDS: SENNOSIDES/DOCUSATE 8.6/50MG TABLET. PO SCH (21:28)
[2021-01-09 23:00] VITALS: BP 115/66
[2021-01-10] MEDS: METOPROLOL IV PUSH 5 MG/5 ML VIAL. IVP SCH ×4 (00:12→17:36)
[2021-01-10] MEDS: AMINO AC 3%/ELECTROLYTE/GLYCER 1,000 ML IV SCH ×2 (02:45→13:36)
[2021-01-10 03:00] VITALS: BP 104/61
[2021-01-10 07:00] VITALS: BP 123/69
[2021-01-10] MEDS: IPRATRPIUM/ALBUTEROL 0.5/2.5MG 3 ML NEBU. NEB SCH ×4 (07:05→19:55)
[2021-01-10] MEDS: BUDESONIDE 0.5 MG/2 ML NEBU. NEB SCH ×2 (07:05→19:55)
[2021-01-10] MEDS: IPRATROPIUM BROMIDE 0.06% NASAL SPRAY 15ML BOTTLE. NS SCH ×2 (09:00→21:00)
--- NOTE | 2021-01-10 09:44 | PDOC ---
PULMONARY PROGRESS NOTES DATE: 01/10/21 TIME: 09:44 Subjective Patient denies increasing shortness of air. Cough mostly nonproductive no chest pain no pressure some abdominal pain Vitals Vital Signs Date Time Temp Pulse Resp B/P (MAP) Pulse Ox O2 Delivery O2 Flow Rate FiO2 01/10/21 07:20 90 Venturi Mask 15.0 01/10/21 07:00 97.0 70 18 123/69 (87) 97.0 ROS: No Nausea, No Chest Pain, No Increase Cough General: Alert, No acute distress Lungs: Clear Cardiovascular: S1, S2 Abdomen: Soft, Non-tender, Other (distended ) Neuro Exam: Alert Extremities: Other (Edema) Skin: Warm Labs Laboratory Tests Test 01/09/21 03:30 White Blood Count 7.3 x10^3/uL (4.0-11.0) Red Blood Count 3.39 x10^6/uL (4.30-5.70) Hemoglobin 8.3 g/dL (13.0-17.5) Hematocrit 28.0 % (39.0-53.0) Mean Corpuscular Volume 83 fL (79-100) Mean Corpuscular Hemoglobin 25 pg (25-35) Mean Corpuscular Hemoglobin Concent 30 g/dL (31-37) Red Cell Distribution Width 26.3 % (11.5-14.5) Platelet Count 129 x10^3/uL (140-400) Neutrophils (%) (Auto) 82 % (31-73) Lymphocytes (%) (Auto) 7 % (24-48) Monocytes (%) (Auto) 9 % (0-9) Eosinophils (%) (Auto) 1 % (0-3) Basophils (%) (Auto) 1 % (0-3) Neutrophils # (Auto) 5.9 x10^3/uL (1.8-7.7) Lymphocytes # (Auto) 0.5 x10^3/uL (1.0-4.8) Monocytes # (Auto) 0.7 x10^3/uL (0.0-1.1) Eosinophils # (Auto) 0.1 x10^3/uL (0.0-0.7) Basophils # (Auto) 0.1 x10^3/uL (0.0-0.2) Sodium Level 142 mmol/L (136-145) Potassium Level 4.7 mmol/L (3.5-5.1) Chloride Level 108 mmol/L (98-107) Carbon Dioxide Level 27 mmol/L (21-32) Anion Gap 7 (6-14) Blood Urea Nitrogen 37 mg/dL (8-26) Creatinine 1.4 mg/dL (0.7-1.3) Estimated GFR (Cockcroft-Gault) 49.1 BUN/Creatinine Ratio 26 (6-20) Glucose Level 116 mg/dL (70-99) Calcium Level 7.7 mg/dL (8.5-10.1) Total Bilirubin 2.8 mg/dL (0.2-1.0) Aspartate Amino Transf (AST/SGOT) 110 U/L (15-37) Alanine Aminotransferase (ALT/SGPT) 114 U/L (16-63) Alkaline Phosphatase 102 U/L (46-116) Total Protein 5.6 g/dL (6.4-8.2) Albumin 2.3 g/dL (3.4-5.0) Albumin/Globulin Ratio 0.7 (1.0-1.7) Medications Active Scripts Medications Dose Route/Sig Max Daily Dose Days Date Category Sertraline Hcl 50 Mg Tablet 50 Mg PO DAILY 12/29/20 Reported Budesonide 0.5 Mg/2 Ml Ampul.neb 1 Vial NEB BID 12/29/20 Reported Tudorza Pressair (Aclidinium Kempner) 400 Mcg Aer.pow.ba 1 Puff IH BID 12/29/20 Reported Ipratropium Kempner 0.2 Mg/1 Ml Solution 1 Vial NEB QID 12/29/20 Reported Klor-Con 10 (Potassium Chloride) 10 Meq Tablet.er 1 Tab PO DAILY 30 12/29/20 Reported Lyrica (Pregabalin) 75 Mg Capsule 1 Cap PO BID 12/29/20 Reported Lisinopril 5 Mg Tablet 5 Mg PO DAILY 10/17/20 Rx Senna Plus Tablet (Sennosides/Docusate Sodium) 1 Each Tablet 2 Tab PO QHS 14 10/01/20 Rx Ipratropium Kempner 15 Ml [place] 2 Sprays NS BID 07/08/20 Reported Metoprolol Succinate ( Xl ) (Metoprolol Succinate) 25 Mg Tab.er.24h 1 Tab PO DAILY 30 07/08/20 Reported Pantoprazole Sodium 40 Mg Tablet.dr 1 Tab PO DAILY 30 07/08/20 Reported Gabapentin (Gabapentin) 300 Mg Capsule 300 Mg PO DAILYWSUP 06/30/19 Reported Aspirin 81 Mg Tab.chew 81 Mg PO DAILY 06/30/19 Reported Furosemide 40 Mg Tablet 40 Mg PO DAILY MDD 1 10/19/18 Rx Lovastatin 40 Mg Tablet 1 Tab PO DAILY 12/14/14 Reported Impression . IMPRESSION: 1. Chronic respiratory failure, multifactorial secondary to severe chronic obstructive pulmonary disease, coronary artery disease, previous coronary artery bypass grafting and deconditioning. 2. Cardiomyopathy, status post coronary artery bypass grafting. 3. Chronic atrial fibrillation. 4. Recent diagnosis of colon cancer. S/P open right colon resection, liver biopsy, see path report 5. Ascites 6. Cephalic vein thrombosis Diagnosis: A. Distal ileum, cecum, ascending colon, and proximal transverse colon with attached mesocolon and portion of omentum, extended right colon resection: - Invasive colorectal adenocarcinoma, moderately to poorly differentiated, forming a nearly circumferential, centrally ulcerated tumor mass measuring up to 5.5 cm in greatest dimension, with tumor invasion through muscularis propria into subserosa/mesocolon. - Focal lymphovascular tumor invasion identified. - Fourteen mesocolic lymph nodes negative for tumor (0/14). - Proximal (distal ileum), distal (transverse colon), and mesocolic margins of resection negative for tumor. - Omentum negative for tumor. - Adiposity of ileocecal valve. - Fibrofatty obliteration of distal appendiceal lumen. - Melanosis coli. . B. Liver biopsy: - Metastatic adenocarcinoma, consistent with colorectal origin. Plan . Continue oxygen supplementation Up to chair Avoid oversedation Aggressive pulmonary hygiene DVT GI prophylaxis Enteral nutrition per RADAMES Cartagena MD Jan 10, 2021 09:44
[2021-01-10 09:55] LABS: BASE EXCESS ABG 2 mmol/L (-3-3); HCO3 ABG 27 mmol/L (21-28); PCO2 ABG 42 mmHg (35-46); PO2 ABG 80 mmHg (65-108); SAT O2 ABG 95 % (92-99)
[2021-01-10 09:56] LABS: FIO2 ABG 50
[2021-01-10] MEDS: ASPIRIN CHEWABLE 81 MG TABLET. PO SCH (09:59)
[2021-01-10] MEDS: POLYETHYLENE GLYCOL 3350 17 GM PACKET. PO SCH (09:59)
[2021-01-10] MEDS: FUROSEMIDE 20 MG/2 ML VIAL. IVP SCH (09:59)
[2021-01-10] MEDS: PANTOPRAZOLE 40 MG TABLET.DR. PO SCH (10:00)
[2021-01-10] MEDS: POTASSIUM CHLORIDE 10 MEQ TABLET.ER. PO SCH (10:00)
[2021-01-10] MEDS: BISACODYL 10 MG SUPP.RECT. PR SCH (10:00)
[2021-01-10] MEDS: SERTRALINE 50 MG TABLET. PO SCH (10:00)
[2021-01-10] MEDS: LISINOPRIL 5 MG TABLET. PO SCH (10:00)
[2021-01-10] MEDS: PREGABALIN 75 MG CAPSULE PO SCH ×2 (10:01→19:38)
[2021-01-10] MEDS: METOPROLOL SUCC 24HR ER 25 MG TAB.ER.24H. PO SCH (10:01)
[2021-01-10] MEDS: ATORVASTATIN CALCIUM 10 MG TABLET. PO SCH (10:01)
--- NOTE | 2021-01-10 10:10 | PDOC ---
SURGICAL PROGRESS NOTE DATE: 01/10/21 TIME: 10:08 Subjective belching some reflux Vital Signs Vital Signs Date Time Temp Pulse Resp B/P (MAP) Pulse Ox O2 Delivery O2 Flow Rate FiO2 01/10/21 10:01 70 123/69 01/10/21 07:20 90 Venturi Mask 15.0 01/10/21 07:00 97.0 18 97.0 I&O Intake and Output 01/10/21 06:59 Intake Total 3831.7 ml Output Total 475 ml Balance 3356.7 ml Intake Oral 0 ml IV Total 3831.7 ml Output Urine Total 475 ml # Bowel Movements 1 General: Alert, Cooperative Abdomen: Soft, Other (distended, incision intact, aman in place) Labs Laboratory Tests Test 01/09/21 03:30 01/10/21 09:55 White Blood Count 7.3 x10^3/uL (4.0-11.0) Red Blood Count 3.39 x10^6/uL (4.30-5.70) Hemoglobin 8.3 g/dL (13.0-17.5) Hematocrit 28.0 % (39.0-53.0) Mean Corpuscular Volume 83 fL (79-100) Mean Corpuscular Hemoglobin 25 pg (25-35) Mean Corpuscular Hemoglobin Concent 30 g/dL (31-37) Red Cell Distribution Width 26.3 % (11.5-14.5) Platelet Count 129 x10^3/uL (140-400) Neutrophils (%) (Auto) 82 % (31-73) Lymphocytes (%) (Auto) 7 % (24-48) Monocytes (%) (Auto) 9 % (0-9) Eosinophils (%) (Auto) 1 % (0-3) Basophils (%) (Auto) 1 % (0-3) Neutrophils # (Auto) 5.9 x10^3/uL (1.8-7.7) Lymphocytes # (Auto) 0.5 x10^3/uL (1.0-4.8) Monocytes # (Auto) 0.7 x10^3/uL (0.0-1.1) Eosinophils # (Auto) 0.1 x10^3/uL (0.0-0.7) Basophils # (Auto) 0.1 x10^3/uL (0.0-0.2) Sodium Level 142 mmol/L (136-145) Potassium Level 4.7 mmol/L (3.5-5.1) Chloride Level 108 mmol/L (98-107) Carbon Dioxide Level 27 mmol/L (21-32) Anion Gap 7 (6-14) Blood Urea Nitrogen 37 mg/dL (8-26) Creatinine 1.4 mg/dL (0.7-1.3) Estimated GFR (Cockcroft-Gault) 49.1 BUN/Creatinine Ratio 26 (6-20) Glucose Level 116 mg/dL (70-99) Calcium Level 7.7 mg/dL (8.5-10.1) Total Bilirubin 2.8 mg/dL (0.2-1.0) Aspartate Amino Transf (AST/SGOT) 110 U/L (15-37) Alanine Aminotransferase (ALT/SGPT) 114 U/L (16-63) Alkaline Phosphatase 102 U/L (46-116) Total Protein 5.6 g/dL (6.4-8.2) Albumin 2.3 g/dL (3.4-5.0) Albumin/Globulin Ratio 0.7 (1.0-1.7) O2 Saturation 95 % (92-99) Arterial Blood pH 7.42 (7.35-7.45) Arterial Blood pCO2 at Patient Temp 42 mmHg (35-46) Arterial Blood pO2 at Patient Temp 80 mmHg (65-108) Arterial Blood HCO3 27 mmol/L (21-28) Arterial Blood Base Excess 2 mmol/L (-3-3) FiO2 50 Laboratory Tests Test 01/10/21 09:55 O2 Saturation 95 % (92-99) Arterial Blood pH 7.42 (7.35-7.45) Arterial Blood pCO2 at Patient Temp 42 mmHg (35-46) Arterial Blood pO2 at Patient Temp 80 mmHg (65-108) Arterial Blood HCO3 27 mmol/L (21-28) Arterial Blood Base Excess 2 mmol/L (-3-3) FiO2 50 Problem List Problems Medical Problems: (1) Abdominal pain Status: Acute Assessment/Plan documented stool, flatus some burping, reflux--on PPI clears slowly Justicifation of Admission Dx: Justifications for Admission: Justification of Admission Dx: Yes Respiratory Failure: Severe Resp Distress [employer]KA [employer] Jan 10, 2021 10:10
[2021-01-10 10:43] LABS: BASO % 0 % (0-3); EOS # 0.1 x10^3/uL (0.0-0.7); EOS % 1 % (0-3); HEMATOCRIT 27.7 % (39.0-53.0); HEMOGLOBIN 8.3 g/dL (13.0-17.5); LYMPH # 0.4 x10^3/uL (1.0-4.8); LYMPH % 5 % (24-48); MEAN CORPUSCULAR HEMOGLOBIN 25 pg (25-35); MEAN CORPUSCULAR HGB CONC 30 g/dL (31-37); MEAN CORPUSCULAR VOLUME 82 fL (79-100); MONO # 0.6 x10^3/uL (0.0-1.1); MONO % 9 % (0-9); NEUT # 6.2 x10^3/uL (1.8-7.7); NEUT % 85 % (31-73); PLATELET COUNT 129 x10^3/uL (140-400); RED BLOOD COUNT 3.37 x10^6/uL (4.30-5.70); RED CELL DISTRIBUTION WIDTH 25.7 % (11.5-14.5); WHITE BLOOD COUNT 7.3 x10^3/uL (4.0-11.0)
[2021-01-10 11:00] VITALS: BP 105/68
[2021-01-10 11:02] LABS: ALBUMIN 2.1 g/dL (3.4-5.0); ALBUMIN/GLOBULIN RATIO 0.7 (1.0-1.7); CALCIUM 7.2 mg/dL (8.5-10.1); CREATININE 1.1 mg/dL (0.7-1.3); GFR 64.9; POTASSIUM 4.5 mmol/L (3.5-5.1); TOTAL BILIRUBIN 3.6 mg/dL (0.2-1.0); TOTAL PROTEIN 5.2 g/dL (6.4-8.2)
--- NOTE | 2021-01-10 11:57 | PDOC ---
PROGRESS NOTES Date of Service DATE: 01/10/21 TIME: 11:55 Subjective Subjective Patient seen and examined Objective Objective Vital Signs Date Time Temp Pulse Resp B/P (MAP) Pulse Ox O2 Delivery O2 Flow Rate FiO2 01/10/21 11:48 90 Venturi Mask 15.0 01/10/21 11:00 71 20 105/68 (80) 01/10/21 07:00 97.0 97.0 Intake and Output 01/10/21 07:00 Intake Total 3831.7 ml Output Total 475 ml Balance 3356.7 ml Intake Oral 0 ml IV Total 3831.7 ml Output Urine Total 475 ml # Bowel Movements 1 Physical Exam Abdomen: Normal bowel sounds Heart: Regular rate General: mild distress Lungs: Other (Slightly decreased breath sounds) Assessment Assessment Problems Medical Problems: (1) Abdominal pain Status: Acute Mild acute on chronic systolic CHF; mildly increased shortness of breath this morning. Lasix has been given. Will monitor. Creatinine this morning of 1.1. ICM: Echo 10/24 with LVEF 30-35%. S/p [employer]-D ([employer]). Device check 10/24 with normal function. stable lead impedances, adequate batter life at 20%. AFIB burden > 99%. CAD: past CABG and PCI. Most recent PCI/stents 12/2015. Clinically stable. Anemia, coagulopathy; s/p transfusion. Continuing to monitor lab. Colon CA with obstructing colonic mass; s/p open colon resection. POD#6. Has passed flatus. Swallow study reportedly normal yesterday. Continue as per the surgical service. Persistent AFIB; v-paced with underlying AFIB, rate controlled Hypertension; controlled Hyperlipidemia; statin GRUPO on CKD; back to baseline COPD with home O2 use Left cephalic vein thrombus Comment Review of Relevant I have reviewed the following items jay (where applicable) has been applied. Labs Laboratory Tests Test 01/09/21 03:30 01/10/21 09:50 01/10/21 09:55 White Blood Count 7.3 x10^3/uL (4.0-11.0) 7.3 x10^3/uL (4.0-11.0) Red Blood Count 3.39 x10^6/uL (4.30-5.70) 3.37 x10^6/uL (4.30-5.70) Hemoglobin 8.3 g/dL (13.0-17.5) 8.3 g/dL (13.0-17.5) Hematocrit 28.0 % (39.0-53.0) 27.7 % (39.0-53.0) Mean Corpuscular Volume 83 fL (79-100) 82 fL (79-100) Mean Corpuscular Hemoglobin 25 pg (25-35) 25 pg (25-35) Mean Corpuscular Hemoglobin Concent 30 g/dL (31-37) 30 g/dL (31-37) Red Cell Distribution Width 26.3 % (11.5-14.5) 25.7 % (11.5-14.5) Platelet Count 129 x10^3/uL (140-400) 129 x10^3/uL (140-400) Neutrophils (%) (Auto) 82 % (31-73) 85 % (31-73) Lymphocytes (%) (Auto) 7 % (24-48) 5 % (24-48) Monocytes (%) (Auto) 9 % (0-9) 9 % (0-9) Eosinophils (%) (Auto) 1 % (0-3) 1 % (0-3) Basophils (%) (Auto) 1 % (0-3) 0 % (0-3) Neutrophils # (Auto) 5.9 x10^3/uL (1.8-7.7) 6.2 x10^3/uL (1.8-7.7) Lymphocytes # (Auto) 0.5 x10^3/uL (1.0-4.8) 0.4 x10^3/uL (1.0-4.8) Monocytes # (Auto) 0.7 x10^3/uL (0.0-1.1) 0.6 x10^3/uL (0.0-1.1) Eosinophils # (Auto) 0.1 x10^3/uL (0.0-0.7) 0.1 x10^3/uL (0.0-0.7) Basophils # (Auto) 0.1 x10^3/uL (0.0-0.2) 0.0 x10^3/uL (0.0-0.2) Sodium Level 142 mmol/L (136-145) 140 mmol/L (136-145) Potassium Level 4.7 mmol/L (3.5-5.1) 4.5 mmol/L (3.5-5.1) Chloride Level 108 mmol/L (98-107) 108 mmol/L (98-107) Carbon Dioxide Level 27 mmol/L (21-32) 28 mmol/L (21-32) Anion Gap 7 (6-14) 4 (6-14) Blood Urea Nitrogen 37 mg/dL (8-26) 37 mg/dL (8-26) Creatinine 1.4 mg/dL (0.7-1.3) 1.1 mg/dL (0.7-1.3) Estimated GFR (Cockcroft-Gault) 49.1 64.9 BUN/Creatinine Ratio 26 (6-20) 34 (6-20) Glucose Level 116 mg/dL (70-99) 100 mg/dL (70-99) Calcium Level 7.7 mg/dL (8.5-10.1) 7.2 mg/dL (8.5-10.1) Total Bilirubin 2.8 mg/dL (0.2-1.0) 3.6 mg/dL (0.2-1.0) Aspartate Amino Transf (AST/SGOT) 110 U/L (15-37) 92 U/L (15-37) Alanine Aminotransferase (ALT/SGPT) 114 U/L (16-63) 103 U/L (16-63) Alkaline Phosphatase 102 U/L (46-116) 92 U/L (46-116) Total Protein 5.6 g/dL (6.4-8.2) 5.2 g/dL (6.4-8.2) Albumin 2.3 g/dL (3.4-5.0) 2.1 g/dL (3.4-5.0) Albumin/Globulin Ratio 0.7 (1.0-1.7) 0.7 (1.0-1.7) O2 Saturation 95 % (92-99) Arterial Blood pH 7.42 (7.35-7.45) Arterial Blood pCO2 at Patient Temp 42 mmHg (35-46) Arterial Blood pO2 at Patient Temp 80 mmHg (65-108) Arterial Blood HCO3 27 mmol/L (21-28) Arterial Blood Base Excess 2 mmol/L (-3-3) FiO2 50 Laboratory Tests Test 01/10/21 09:50 01/10/21 09:55 White Blood Count 7.3 x10^3/uL (4.0-11.0) Red Blood Count 3.37 x10^6/uL (4.30-5.70) Hemoglobin 8.3 g/dL (13.0-17.5) Hematocrit 27.7 % (39.0-53.0) Mean Corpuscular Volume 82 fL (79-100) Mean Corpuscular Hemoglobin 25 pg (25-35) Mean Corpuscular Hemoglobin Concent 30 g/dL (31-37) Red Cell Distribution Width 25.7 % (11.5-14.5) Platelet Count 129 x10^3/uL (140-400) Neutrophils (%) (Auto) 85 % (31-73) Lymphocytes (%) (Auto) 5 % (24-48) Monocytes (%) (Auto) 9 % (0-9) Eosinophils (%) (Auto) 1 % (0-3) Basophils (%) (Auto) 0 % (0-3) Neutrophils # (Auto) 6.2 x10^3/uL (1.8-7.7) Lymphocytes # (Auto) 0.4 x10^3/uL (1.0-4.8) Monocytes # (Auto) 0.6 x10^3/uL (0.0-1.1) Eosinophils # (Auto) 0.1 x10^3/uL (0.0-0.7) Basophils # (Auto) 0.0 x10^3/uL (0.0-0.2) Sodium Level 140 mmol/L (136-145) Potassium Level 4.5 mmol/L (3.5-5.1) Chloride Level 108 mmol/L (98-107) Carbon Dioxide Level 28 mmol/L (21-32) Anion Gap 4 (6-14) Blood Urea Nitrogen 37 mg/dL (8-26) Creatinine 1.1 mg/dL (0.7-1.3) Estimated GFR (Cockcroft-Gault) 64.9 BUN/Creatinine Ratio 34 (6-20) Glucose Level 100 mg/dL (70-99) Calcium Level 7.2 mg/dL (8.5-10.1) Total Bilirubin 3.6 mg/dL (0.2-1.0) Aspartate Amino Transf (AST/SGOT) 92 U/L (15-37) Alanine Aminotransferase (ALT/SGPT) 103 U/L (16-63) Alkaline Phosphatase 92 U/L (46-116) Total Protein 5.2 g/dL (6.4-8.2) Albumin 2.1 g/dL (3.4-5.0) Albumin/Globulin Ratio 0.7 (1.0-1.7) O2 Saturation 95 % (92-99) Arterial Blood pH 7.42 (7.35-7.45) Arterial Blood pCO2 at Patient Temp 42 mmHg (35-46) Arterial Blood pO2 at Patient Temp 80 mmHg (65-108) Arterial Blood HCO3 27 mmol/L (21-28) Arterial Blood Base Excess 2 mmol/L (-3-3) FiO2 50 Microbiology 12/29/20 Blood Culture - Final, Complete NO GROWTH AFTER 5 DAYS Medications Current Medications Phytonadione (Vitamin K Ampule) 10 mg 1X ONCE SQ Last administered on 12/29/20at 12:57; Start 12/29/20 at 12:30; Stop 12/29/20 at 12:31; Status DC Piperacillin Sod/ Tazobactam Sod (Zosyn Per Pharmacy) 1 each PRN DAILY PRN MC SEE COMMENTS; Start 12/29/20 at 12:30; Stop 12/30/20 at 13:32; Status DC Piperacillin Sod/ Tazobactam Sod 3.375 gm/Sodium Chloride 50 ml @ 100 mls/hr ONCE ONCE IV Last administered on 12/29/20at 14:18; Start 12/29/20 at 13:00; Stop 12/29/20 at 13:29; Status DC Piperacillin Sod/ Tazobactam Sod 3.375 gm/Sodium Chloride 50 ml @ 100 mls/hr Q6HRS IV Last administered on 12/30/20at 12:01; Start 12/29/20 at 19:00; Stop 12/30/20 at 13:32; Status DC Aspirin (Aspirin Chewable) 81 mg DAILY PO Last administered on 01/10/21at 09:59; Start 12/30/20 at 12:30 Furosemide (Lasix) 40 mg DAILY PO Last administered on 01/03/21at 12:59; Start 12/30/20 at 12:30; Stop 01/08/21 at 07:50; Status DC Gabapentin (Neurontin) 300 mg DAILYWSUP PO Last administered on 01/03/21 09:43; Start 12/30/20 at 17:00 Ipratropium [place] (Atrovent) 1 mg QID NEB ; Start 12/30/20 at 13:00; Stop 12/30/20 at 11:54; Status DC Ipratropium [place] (Atrovent Nasal) 2 spray BID NS Last administered on 01/10/21 09:00; Start 12/30/20 at 21:00 Lisinopril (Prinivil) 5 mg DAILY PO Last administered on 01/10/21 10:00; Start 12/30/20 at 12:30 Metoprolol Succinate (Toprol Xl) 25 mg DAILY PO Last administered on 01/10/21 10:01; Start 12/30/20 at 12:30 Pantoprazole Sodium (Protonix) 40 mg DAILYAC PO Last administered on 01/10/21 10:00; Start 12/30/20 at 12:30 Pregabalin (Lyrica) 75 mg BID PO Last administered on 01/10/21 10:01; Start 12/30/20 at 21:00 Senna/Docusate Sodium (Senna Plus) 2 tab QHS PO Last administered on 01/09/21 21:28; Start 12/30/20 at 21:00 Sertraline HCl (Zoloft) 50 mg DAILY PO Last administered on 01/10/21 10:00; Start 12/30/20 at 12:30 Albuterol/ Ipratropium (Duoneb) 3 ml RTQID NEB Last administered on 01/10/21 11:48; Start 12/30/20 at 12:00 Atorvastatin Calcium (Lipitor) 10 mg DAILY PO Last administered on 01/10/21 10:01; Start 12/30/20 at 12:30 Potassium Chloride (Klor-Con) 10 meq DAILYWBKFT PO Last administered on 01/10/21 10:00; Start 12/30/20 at 12:30 Fentanyl Citrate (Fentanyl 2ml Vial) 25 mcg PRN Q5MIN PRN IVP MILD PAIN 1-3; Start 12/31/20 at 06:00; Stop 01/01/21 at 05:59; Status DC Fentanyl Citrate (Fentanyl 2ml Vial) 50 mcg PRN Q5MIN PRN IVP MODERATE PAIN 4- 6; Start 12/31/20 at 06:00; Stop 01/01/21 at 05:59; Status DC Morphine Sulfate (Morphine Sulfate) 1 mg PRN Q10MIN PRN IVP SEVERE PAIN 7-10; Start 12/31/20 at 06:00; Stop 01/01/21 at 05:59; Status DC Ringer's Solution 1,000 ml @ 30 mls/hr Q24H IV ; Start 12/31/20 at 06:00; Stop 12/31/20 at 17:59; Status DC Hydromorphone HCl (Dilaudid) 0.5 mg PRN Q10MIN PRN IVP SEVERE PAIN 7-10, 2nd CHOICE; Start 12/31/20 at 06:00; Stop 01/01/21 at 05:59; Status DC Prochlorperazine Edisylate (Compazine) 5 mg PACU PRN PRN IVP NAUSEA, MRX1; Start 12/31/20 at 06:00; Stop 01/01/21 at 05:59; Status DC Fentanyl Citrate (Fentanyl 2ml Vial) 25 mcg PRN Q5MIN PRN IVP MILD PAIN 1-3; Start 12/31/20 at 06:00; Stop 01/01/21 at 05:59; Status UNV Fentanyl Citrate (Fentanyl 2ml Vial) 50 mcg PRN Q5MIN PRN IVP MODERATE PAIN 4- 6; Start 12/31/20 at 06:00; Stop 01/01/21 at 05:59; Status UNV Morphine Sulfate (Morphine Sulfate) 1 mg PRN Q10MIN PRN IVP SEVERE PAIN 7-10; Start 12/31/20 at 06:00; Stop 01/01/21 at 05:59; Status UNV Ringer's Solution 1,000 ml @ 30 mls/hr Q24H IV ; Start 12/31/20 at 06:00; Stop 12/31/20 at 17:59; Status UNV Hydromorphone HCl (Dilaudid) 0.5 mg PRN Q10MIN PRN IVP SEVERE PAIN 7-10, 2nd CHOICE; Start 12/31/20 at 06:00; Stop 01/01/21 at 05:59; Status UNV Prochlorperazine Edisylate (Compazine) 5 mg PACU PRN PRN IVP NAUSEA, MRX1; Start 12/31/20 at 06:00; Stop 01/01/21 at 05:59; Status UNV Furosemide (Lasix) 40 mg 1X ONCE IVP Last administered on 12/30/20at 17:27; Start 12/30/20 at 17:00; Stop 12/30/20 at 17:01; Status DC Glycopyrrolate (Robinul) 1 mg STK-MED ONCE .ROUTE ; Start 12/31/20 at 08:23; Stop 12/31/20 at 08:23; Status DC Propofol (Diprivan) 200 mg STK-MED ONCE IV ; Start 12/31/20 at 08:23; Stop 12/31/20 at 08:23; Status DC Etomidate (Amidate) 20 mg STK-MED ONCE IV ; Start 12/31/20 at 08:23; Stop 12/31/20 at 08:24; Status DC Lidocaine HCl (Lidocaine Pf 2% Vial) 5 ml STK-MED ONCE .ROUTE ; Start 12/31/20 at 08:24; Stop 12/31/20 at 08:24; Status DC Phenylephrine HCl (PHENYLEPHRINE in 0.9% NACL PF) 1 mg STK-MED ONCE IV ; Start 12/31/20 at 08:24; Stop 12/31/20 at 08:24; Status DC Ephedrine Sulfate (ePHEDrine PF IN SALINE SYRINGE) 50 mg STK-MED ONCE IV ; Start 12/31/20 at 08:24; Stop 12/31/20 at 08:24; Status DC Succinylcholine Chloride (Anectine) 200 mg STK-MED ONCE .ROUTE ; Start 12/31/20 at 08:24; Stop 12/31/20 at 08:24; Status DC Rocuronium [place] (Zemuron) 50 mg STK-MED ONCE .ROUTE ; Start 12/31/20 at 08:24; Stop 12/31/20 at 08:25; Status DC Fentanyl Citrate (Fentanyl 2ml Vial) 100 mcg STK-MED ONCE .ROUTE ; Start 12/31/20 at 08:25; Stop 12/31/20 at 08:25; Status DC Phenylephrine HCl (Can-Synephrine Inj) 10 mg STK-MED ONCE .ROUTE ; Start 12/31/20 at 08:28; Stop 12/31/20 at 08:28; Status DC Bisacodyl (Dulcolax Supp) [address] Last administered on 01/10/21at 10:00; Start 12/31/20 at 12:00 Polyethylene Glycol (miraLAX PACKET) 17 gm DAILY PO Last administered on 01/10/21at 09:59; Start 12/31/20 at 12:00 Iron Sucrose 500 mg/Sodium Chloride 275 ml @ 78.571 mls/ hr 1X ONCE IV Last administered on 12/31/20at 16:06; Start 12/31/20 at 13:00; Stop 12/31/20 at 1 6:29; Status DC Budesonide (Pulmicort) 0.5 mg RTBID NEB Last administered on 01/10/21at 07:05; Start 01/02/21 at 20:00 Temazepam (Restoril) 15 mg PRN QHS PRN PO INSOMNIA Last administered on 01/03/21at 20:53; Start 01/02/21 at 21:45 Oxymetazoline HCl (Afrin) 2 spray PRN BID PRN NS CONGESTION Last administered on 01/03/21at 09:36; Start 01/02/21 at 21:45 Guaifenesin (Mucinex) 600 mg BID PO Last administered on 01/10/21at 10:00; Start 01/02/21 at 22:00 Fentanyl Citrate (Fentanyl 2ml Vial) 25 mcg PRN Q5MIN PRN IVP MILD PAIN 1-3 Last administered on 01/04/21at 12:39; Start 01/04/21 at 06:00; Stop 01/05/21 at 05:59; Status DC Fentanyl Citrate (Fentanyl 2ml Vial) 50 mcg PRN Q5MIN PRN IVP MODERATE PAIN 4- 6; Start 01/04/21 at 06:00; Stop 01/05/21 at 05:59; Status DC Morphine Sulfate (Morphine Sulfate) 1 mg PRN Q10MIN PRN IVP SEVERE PAIN 7-10; Start 01/04/21 at 06:00; Stop 01/05/21 at 05:59; Status DC Ringer's Solution 1,000 ml @ 30 mls/hr Q24H IV Last administered on 01/04/21at 08:15; Start 01/04/21 at 06:00; Stop 01/04/21 at 17:59; Status DC Hydromorphone HCl (Dilaudid) 0.5 mg PRN Q10MIN PRN IVP SEVERE PAIN 7-10, 2nd CHOICE Last administered on 01/04/21at 13:44; Start 01/04/21 at 06:00; Stop 01/05/21 at 05:59; Status DC Prochlorperazine Edisylate (Compazine) 5 mg PACU PRN PRN IVP NAUSEA, MRX1; Start 01/04/21 at 06:00; Stop 01/05/21 at 05:59; Status DC Ceftriaxone Sodium (Rocephin) 1 gm 1X PREOP IVP Last administered on 01/04/21at 09:48; Start 01/04/21 at 09:00; Stop 01/05/21 at 11:22; Status DC Metronidazole 100 ml @ 100 mls/hr 1X PREOP IV Last administered on 01/04/21at 09:49; Start 01/04/21 at 09:00; Stop 01/04/21 at 18:00; Status DC Lidocaine HCl (Xylocaine-Mpf 1% 2ml Vial) 2 ml STK-MED ONCE .ROUTE ; Start 01/04/21 at 08:08; Stop 01/04/21 at 08:09; Status DC Propofol (Diprivan) 200 mg STK-MED ONCE IV ; Start 01/04/21 at 08:29; Stop 01/04/21 at 08:30; Status DC Lidocaine HCl (Lidocaine Pf 2% Vial) 5 ml STK-MED ONCE .ROUTE ; Start 01/04/21 at 08:29; Stop 01/04/21 at 08:30; Status DC Ondansetron HCl (Zofran) 4 mg STK-MED ONCE .ROUTE ; Start 01/04/21 at 08:29; Stop 01/04/21 at 08:30; Status DC Dexamethasone Sodium Phosphate (Decadron) 4 mg STK-MED ONCE .ROUTE ; Start 01/04/21 at 08:29; Stop 01/04/21 at 08:30; Status DC Succinylcholine Chloride (Anectine) 200 mg STK-MED ONCE .ROUTE ; Start 01/04/21 at 08:30; Stop 01/04/21 at 08:30; Status DC Rocuronium [place] (Zemuron) 50 mg STK-MED ONCE .ROUTE ; Start 01/04/21 at 08:30; Stop 01/04/21 at 08:30; Status DC Fentanyl Citrate (Fentanyl 2ml Vial) 100 mcg STK-MED ONCE .ROUTE ; Start 01/04/21 at 08:30; Stop 01/04/21 at 08:30; Status DC Phenylephrine HCl (Can-Synephrine Inj) 10 mg STK-MED ONCE .ROUTE ; Start 01/04/21 at 08:55; Stop 01/04/21 at 08:56; Status DC Rocuronium [place] (Zemuron) 50 mg STK-MED ONCE .ROUTE ; Start 01/04/21 at 09:43; Stop 01/04/21 at 09:43; Status DC Cellulose (Surgicel Hemostat 4x8) 1 each STK-MED ONCE .ROUTE Last administered on 01/04/21at 09:42; Start 01/04/21 at 10:43; Stop 01/04/21 at 10:44; Status DC Cellulose (Surgicel Hemostat 4x8) 1 each STK-MED ONCE .ROUTE Last administered on 01/04/21at 09:42; Start 01/04/21 at 10:43; Stop 01/04/21 at 10:44; Status DC Cellulose (Surgicel Hemostat 4x8) 1 each STK-MED ONCE .ROUTE ; Start 01/04/21 at 10:47; Stop 01/04/21 at 10:48; Status Cancel Cellulose (Surgicel Hemostat 4x8) 1 each STK-MED ONCE .ROUTE ; Start 01/04/21 at 10:47; Stop 01/04/21 at 10:48; Status Cancel Cellulose (Surgicel Hemostat 4x8) 1 each STK-MED ONCE .ROUTE ; Start 01/04/21 at 10:47; Stop 01/04/21 at 10:48; Status Cancel Sevoflurane (Ultane) 90 ml STK-MED ONCE IH ; Start 01/04/21 at 11:03; Stop 01/04/21 at 11:04; Status DC Enoxaparin Sodium (Lovenox 40mg Syringe) 40 mg Q24H SQ Last administered on 01/09at 17:10; Start 01/04/21 at 16:00 Sodium Chloride (Normal Saline Flush) 3 ml QSHIFT PRN IV AFTER MEDS AND BLOOD DRAWS; Start 01/04/21 at 11:30 Ringer's Solution 1,000 ml @ 100 mls/hr Q10H IV Last administered on 01/08/21at 05:42; Start 01/04/21 at 12:00; Stop 01/08/21 at 11:37; Status DC Fentanyl Citrate 30 ml @ 0 mls/hr CONT PRN PRN IV PER PROTOCOL Last administered on 01/10/21at 02:52; Start 01/04/21 at 11:30 Naloxone HCl (Narcan) 0.4 mg PRN Q2MIN PRN IV SEE INSTRUCTIONS; Start 01/04/21 at 11:30 Sodium Chloride 1,000 ml @ 25 mls/hr Q24H IV Last administered on 01/08/21at 12:00; Start 01/04/21 at 12:00 Ondansetron HCl (Zofran) 4 mg PRN Q6HRS PRN IVP NAUESA, 1ST CHOICE Last administered on 01/09/21at 17:11; Start 01/04/21 at 11:30 Fentanyl Citrate (Fentanyl 2ml Vial) 100 mcg STK-MED ONCE .ROUTE ; Start 01/04/21 at 11:55; Stop 01/04/21 at 11:55; Status DC Fentanyl Citrate (Fentanyl 2ml Vial) 100 mcg STK-MED ONCE .ROUTE ; Start 01/04/21 at 12:29; Stop 01/04/21 at 12:29; Status DC Hydromorphone HCl (Dilaudid) 2 mg STK-MED ONCE .ROUTE ; Start 01/04/21 at 12:42; Stop 01/04/21 at 12:42; Status DC Ketamine HCl (Ketamine) 50 mg STK-MED ONCE .ROUTE ; Start 01/04/21 at 15:01; Stop 01/04/21 at 15:02; Status DC Sodium Chloride 250 ml @ 250 mls/hr 1X ONCE IV ; Start 01/05/21 at 06:00; Stop 01/05/21 at 05:37; Status DC Saliva Substitute (Biotene Moisturizing Mouth) 2 spray PRN Q15MIN PRN PO DRY MOUTH Last administered on 01/05/21at 17:47; Start 01/05/21 at 10:00 Metoprolol Tartrate (Lopressor Vial) 5 mg PRN Q5MIN PRN IVP TACHYCARDIA; Start 01/05/21 at 14:00 Pantoprazole Sodium (PROTONIX VIAL for IV PUSH) 40 mg 1X ONCE IVP Last administered on 01/06/21at 08:21; Start 01/06/21 at 08:30; Stop 01/06/21 at 08:31; Status DC Metoprolol Tartrate (Lopressor Vial) 2.5 mg Q6HRS IVP Last administered on 01/10/21at 06:00; Start 01/06/21 at 18:00 Furosemide (Lasix) 20 mg DAILY IVP Last administered on 01/10/21at 09:59; Start 01/08/21 at 09:00 Furosemide (Lasix) 40 mg 1X ONCE IVP Last administered on 01/07/21at 10:50; Start 01/07/21 at 10:45; Stop 01/07/21 at 10:46; Status DC Amino Acids/ Glycerin/ Electrolytes 1,000 ml @ 80 mls/hr [id number] IV Last administered on 01/10/21at 02:45; Start 01/08/21 at 12:00 Sodium Chloride 500 ml @ 500 mls/hr 1X ONCE IV Last administered on 01/08/21at 12:44; Start 01/08/21 at 11:45; Stop 01/08/21 at 12:44; Status DC Active Scripts Active Lisinopril 5 Mg Tablet 5 Mg PO DAILY Senna Plus Tablet (Sennosides/Docusate Sodium) 1 Each Tablet 2 Tab PO QHS 14 Days Furosemide 40 Mg Tablet 40 Mg PO DAILY MDD 1 Reported Sertraline Hcl 50 Mg Tablet 50 Mg PO DAILY Budesonide 0.5 Mg/2 Ml Ampul.neb 1 Vial NEB BID Tudorza Pressair (Aclidinium [place]) 400 Mcg Aer.pow.ba 1 Puff IH BID Ipratropium [place] 0.2 Mg/1 Ml Solution 1 Vial NEB QID Klor-Con 10 (Potassium Chloride) 10 Meq Tablet.er 1 Tab PO DAILY 30 Days Lyrica (Pregabalin) 75 Mg Capsule 1 Cap PO BID Ipratropium [place] 15 Ml Rupert 2 Sprays NS BID Metoprolol Succinate ( Xl ) (Metoprolol Succinate) 25 Mg Tab.er.24h 1 Tab PO DAILY 30 Days Pantoprazole Sodium 40 Mg Tablet.dr 1 Tab PO DAILY 30 Days Gabapentin (Gabapentin) 300 Mg Capsule 300 Mg PO DAILYWSUP Aspirin 81 Mg Tab.chew 81 Mg PO DAILY Lovastatin 40 Mg Tablet 1 Tab PO DAILY Vitals/I & O Vital Sign - Last 24 Hours 01/09/21 01/09/21 01/09/21 01/09/21 14:13 15:00 16:05 17:07 Temp 96.2 96.2 Pulse 69 69 69 Resp 18 B/P (MAP) 108/61 108/61 (77) 95/50 Pulse Ox 91 92 O2 Delivery Nasal Cannula Nasal Cannula O2 Flow Rate 5.0 01/09/21 01/09/21 01/09/21 01/09/21 19:00 20:20 20:36 23:00 Temp 98.9 98.4 98.9 98.4 Pulse 69 65 Resp 18 18 B/P (MAP) 112/59 (76) 115/66 (82) Pulse Ox 92 81 94 O2 Delivery Nasal Cannula Nasal Cannula Nasal Cannula Nasal Cannula O2 Flow Rate 5.0 5.0 01/10/21 01/10/21 01/10/21 01/10/21 00:12 02:52 03:00 06:00 Temp 97.9 97.9 Pulse 65 70 70 Resp 18 18 B/P (MAP) 115/66 104/61 (75) 104/61 Pulse Ox 88 O2 Delivery Nasal Cannula Nasal Cannula 01/10/21 01/10/21 01/10/21 01/10/21 07:00 07:06 07:20 10:00 Temp 97.0 97.0 Pulse 70 70 Resp 18 B/P (MAP) 123/69 (87) 123/69 Pulse Ox 96 80 90 O2 Delivery Venturi Mask Nasal Cannula Venturi Mask O2 Flow Rate 5.0 5.0 15.0 01/10/21 01/10/21 01/10/21 10:01 11:00 11:48 Pulse 70 71 Resp 20 B/P (MAP) 123/69 105/68 (80) Pulse Ox 92 90 O2 Delivery Venturi Mask Venturi Mask O2 Flow Rate 15.0 15.0 Intake and Output 301/09/21 01/10/21 15:00 23:00 07:00 Intake Total 1831.7 ml 2000 ml Output Total 475 ml Balance 1831.7 ml 1525 ml Justifications for Admission Other Justification Nutrition Consultation Dietary Evaluation: Recommendations by RD: Dietary education by RD, PPN/TPN Comments: REC continue PPN at this time REC resume cardiac diet when appropriate w/Ensure TID Expected Outcomes/Goals: New goal 01/06: Diet advancement s/p colon surgery- goal ongoing Malnutrition Findings: Food and Nutrition Intake (Sev: <50% est energy req 5days Weight Status: Overweight Fluid Accumulation (Non-Severe: Mild depletion ERIC OROZCO MD Jan 10, 2021 11:57
[2021-01-10] MEDS: IV NORMAL SALINE 1000ML BAG 1,000 ML IV SCH (12:00)
--- NOTE | 2021-01-10 14:11 | PDOC ---
[employer] PROGRESS NOTE Date of Service DOS: DATE: 01/10/21 TIME: 14:09 Chief Complaint Chief Complaint Acute Abd pain, fluid overload colon cancer, status post open right colectomy with liver biopsy on 01/04/2021 iron deficiency anemia, obese, BMI 32 weakness, debility depression, insomnia neuropathy History of Present Illness History of Present Illness 01/10/2021 No acute events overnight. Patient this morning had desaturation to 90s while on Venturi mask. Chest x-ray is ordered. Patient continues to be on IV diuretics. Pain is controlled and patient is passing flatus. We will continue with PPN. Patient's chart, labs, images were reviewed and discussed with RN 01/09, has small amount of stool output, on full liquid, poor PO intake, cont the PPN, needs rehab, he has some emotion today about nto improving much, I discussed at length that everything right now is going well and just takes time, no new complaint 01/08, change fluid from LR to PPN, cont other, pain OK, he reports stool, RN doesnt think so, cont current, if he stools, we can try liquid diet, try OOB to chair 4 L nasal cannula O2. Afebrile. Sit up in chair. Pain is still intermittent. Even with ice chips he is getting some esophageal spasm and pain. Not passing flatus currently. Feeling well overall. Hb 7.9, CR 1.2. Okay to transfer out of ICU. 01/06: On 15L facemask O2, up from home 4L. He is feeling well, asking to eat and drink. Still using his [employer]ELES[employer] TEAM LEADER. IV protonix today 01/05: Seen in ICU. On facemask O2. He actually has bowel sounds is reasonably controlled abdominal pain with TELES[employer] TEAM LEADER. His only complaint is dry mouth. 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 Transferred to ICU thereafter. 01/02: Patient seen and examined, sitting up and talkative. He has no new complaints 01/01: Issues swallowing liquids, ordering bedside swallow. He did take a drink and have a coughing fit during our conversation, says this happens frequently 12/31: Patient seen and examined. Discussed surgery date push back 12/30: Discussed CRC prognosis and he wanted a second opinion on the prognosis. Called Dr. Cullen who is willing to complete surgery if patient decides Vitals/I&O Vitals/I&O: Vital Signs Date Time Temp Pulse Resp B/P (MAP) Pulse Ox O2 Delivery O2 Flow Rate FiO2 01/10/21 13:34 71 105/68 01/10/21 11:48 90 Venturi Mask 15.0 01/10/21 11:00 20 01/10/21 07:00 97.0 97.0 I & O 01/09/21 01/09/21 01/10/21 15:00 23:00 07:00 Intake Total 1831.7 ml 2000 ml Output Total 475 ml Balance 1831.7 ml 1525 ml Physical Exam General: Alert, Oriented X3, mild distress Heart: Regular rate Lungs: Clear Abdomen: Normal bowel sounds Extremities: No clubbing, No cyanosis, Other (Mild edema) Skin: No rashes, Other (Bruising on arms) Labs Labs: Laboratory Tests Test 01/10/21 09:50 01/10/21 09:55 White Blood Count 7.3 x10^3/uL (4.0-11.0) Red Blood Count 3.37 x10^6/uL (4.30-5.70) Hemoglobin 8.3 g/dL (13.0-17.5) Hematocrit 27.7 % (39.0-53.0) Mean Corpuscular Volume 82 fL (79-100) Mean Corpuscular Hemoglobin 25 pg (25-35) Mean Corpuscular Hemoglobin Concent 30 g/dL (31-37) Red Cell Distribution Width 25.7 % (11.5-14.5) Platelet Count 129 x10^3/uL (140-400) Neutrophils (%) (Auto) 85 % (31-73) Lymphocytes (%) (Auto) 5 % (24-48) Monocytes (%) (Auto) 9 % (0-9) Eosinophils (%) (Auto) 1 % (0-3) Basophils (%) (Auto) 0 % (0-3) Neutrophils # (Auto) 6.2 x10^3/uL (1.8-7.7) Lymphocytes # (Auto) 0.4 x10^3/uL (1.0-4.8) Monocytes # (Auto) 0.6 x10^3/uL (0.0-1.1) Eosinophils # (Auto) 0.1 x10^3/uL (0.0-0.7) Basophils # (Auto) 0.0 x10^3/uL (0.0-0.2) Sodium Level 140 mmol/L (136-145) Potassium Level 4.5 mmol/L (3.5-5.1) Chloride Level 108 mmol/L (98-107) Carbon Dioxide Level 28 mmol/L (21-32) Anion Gap 4 (6-14) Blood Urea Nitrogen 37 mg/dL (8-26) Creatinine 1.1 mg/dL (0.7-1.3) Estimated GFR (Cockcroft-Gault) 64.9 BUN/Creatinine Ratio 34 (6-20) Glucose Level 100 mg/dL (70-99) Calcium Level 7.2 mg/dL (8.5-10.1) Total Bilirubin 3.6 mg/dL (0.2-1.0) Aspartate Amino Transf (AST/SGOT) 92 U/L (15-37) Alanine Aminotransferase (ALT/SGPT) 103 U/L (16-63) Alkaline Phosphatase 92 U/L (46-116) Total Protein 5.2 g/dL (6.4-8.2) Albumin 2.1 g/dL (3.4-5.0) Albumin/Globulin Ratio 0.7 (1.0-1.7) O2 Saturation 95 % (92-99) Arterial Blood pH 7.42 (7.35-7.45) Arterial Blood pCO2 at Patient Temp 42 mmHg (35-46) Arterial Blood pO2 at Patient Temp 80 mmHg (65-108) Arterial Blood HCO3 27 mmol/L (21-28) Arterial Blood Base Excess 2 mmol/L (-3-3) FiO2 50 Assessment and Plan Assessmemt and Plan Problems Medical Problems: (1) Abdominal pain Status: Acute Comment Review of Relevant I have reviewed the following items jay (where applicable) has been applied. Justifications for Admission Other Justification LINDA HANSEN MD Jan 10, 2021 14:11
[2021-01-10 15:00] VITALS: BP 112/64
--- NOTE | 2021-01-10 15:10 | RAD ---
EXAM: Chest, single view. HISTORY: Shortness of breath. COMPARISON: 12/29/2020 FINDINGS: A frontal view of the chest is obtained. There is focal opacity overlying the lateral right lower lobe measuring approximately 2.8 cm, new compared to the prior study and possibly due to nodul ar infiltrate. Superimposed on diffuse increased interstitial opacity likely due to emphysema with craft perimposed fibrosis. There is a stable cardiac silhouette, median sternotomy changes and cardiac pace maker defibrillator. No pneumothorax or pleural effusion is seen. IMPRESSION: 1. Focal opacity overlying the right lower lobe possibly due to nodular infiltrate. Follow-up to conf irm resolution. 2. Emphysema with superimposed chronic interstitial changes. Electronically signed by: Yaima Meza MD (01/10/2021 3:07 PM) [id number]
[2021-01-10] MEDS: GABAPENTIN 300 MG CAPSULE. PO SCH (15:26)
[2021-01-10] MEDS: ENOXAPARIN 40 MG/0.4 ML SYRINGE. SQ SCH (17:37)
[2021-01-10] MEDS: SENNOSIDES/DOCUSATE 8.6/50MG TABLET. PO SCH (19:38)
[2021-01-10 19:54] VITALS: BP 86/53
[2021-01-10] MEDS: ONDANSETRON PF 4 MG/2 ML VIAL. IVP PRN (23:14)
[2021-01-10 23:34] VITALS: BP 113/57
[2021-01-11] MEDS: AMINO AC 3%/ELECTROLYTE/GLYCER 1,000 ML IV SCH ×2 (03:18→15:04)
[2021-01-11 03:52] VITALS: BP 107/62
--- NOTE | 2021-01-11 04:00 | NUR ---
Patient's surgical dressing changed, noted sevilla-brownish colored drainage from his aman, some soiling to bedding and gown, incision appears to be well approximated, moser catheter care done after dressing change. to monitor.
[2021-01-11 07:00] VITALS: BP 112/51
[2021-01-11] MEDS: BUDESONIDE 0.5 MG/2 ML NEBU. NEB SCH ×2 (07:12→19:12)
[2021-01-11] MEDS: IPRATRPIUM/ALBUTEROL 0.5/2.5MG 3 ML NEBU. NEB SCH ×4 (07:12→19:12)
[2021-01-11] MEDS: PANTOPRAZOLE 40 MG TABLET.DR. PO SCH (07:18)
[2021-01-11] MEDS: POTASSIUM CHLORIDE 10 MEQ TABLET.ER. PO SCH (07:18)
[2021-01-11] MEDS: ATORVASTATIN CALCIUM 10 MG TABLET. PO SCH (07:19)
[2021-01-11] MEDS: LISINOPRIL 5 MG TABLET. PO SCH (07:19)
[2021-01-11] MEDS: SERTRALINE 50 MG TABLET. PO SCH (07:19)
[2021-01-11] MEDS: POLYETHYLENE GLYCOL 3350 17 GM PACKET. PO SCH (07:19)
[2021-01-11] MEDS: METOPROLOL SUCC 24HR ER 25 MG TAB.ER.24H. PO SCH (07:19)
[2021-01-11] MEDS: ASPIRIN CHEWABLE 81 MG TABLET. PO SCH (07:19)
[2021-01-11] MEDS: PREGABALIN 75 MG CAPSULE PO SCH ×2 (07:19→21:00)
[2021-01-11] MEDS: BISACODYL 10 MG SUPP.RECT. PR SCH (07:53)
[2021-01-11] MEDS: FUROSEMIDE 20 MG/2 ML VIAL. IVP SCH (07:53)
--- NOTE | 2021-01-11 08:27 | PDOC ---
PULMONARY PROGRESS NOTES DATE: 01/11/21 TIME: 08:27 Subjective Patient wishes to drink something, not more short of air. Vitals Vital Signs Date Time Temp Pulse Resp B/P (MAP) Pulse Ox O2 Delivery O2 Flow Rate FiO2 01/11/21 07:14 94 Nasal Cannula 15.0 01/11/21 03:52 98.1 69 16 107/62 (77) 98.1 ROS: No Nausea, No Chest Pain, No Increase Cough General: Alert, No acute distress Lungs: Clear Cardiovascular: S1, S2 Abdomen: Soft, Non-tender, Other (distended ) Neuro Exam: Alert Extremities: Other (Edema) Skin: Warm Labs Laboratory Tests Test 01/10/21 09:50 01/10/21 09:55 White Blood Count 7.3 x10^3/uL (4.0-11.0) Red Blood Count 3.37 x10^6/uL (4.30-5.70) Hemoglobin 8.3 g/dL (13.0-17.5) Hematocrit 27.7 % (39.0-53.0) Mean Corpuscular Volume 82 fL (79-100) Mean Corpuscular Hemoglobin 25 pg (25-35) Mean Corpuscular Hemoglobin Concent 30 g/dL (31-37) Red Cell Distribution Width 25.7 % (11.5-14.5) Platelet Count 129 x10^3/uL (140-400) Neutrophils (%) (Auto) 85 % (31-73) Lymphocytes (%) (Auto) 5 % (24-48) Monocytes (%) (Auto) 9 % (0-9) Eosinophils (%) (Auto) 1 % (0-3) Basophils (%) (Auto) 0 % (0-3) Neutrophils # (Auto) 6.2 x10^3/uL (1.8-7.7) Lymphocytes # (Auto) 0.4 x10^3/uL (1.0-4.8) Monocytes # (Auto) 0.6 x10^3/uL (0.0-1.1) Eosinophils # (Auto) 0.1 x10^3/uL (0.0-0.7) Basophils # (Auto) 0.0 x10^3/uL (0.0-0.2) Sodium Level 140 mmol/L (136-145) Potassium Level 4.5 mmol/L (3.5-5.1) Chloride Level 108 mmol/L (98-107) Carbon Dioxide Level 28 mmol/L (21-32) Anion Gap 4 (6-14) Blood Urea Nitrogen 37 mg/dL (8-26) Creatinine 1.1 mg/dL (0.7-1.3) Estimated GFR (Cockcroft-Gault) 64.9 BUN/Creatinine Ratio 34 (6-20) Glucose Level 100 mg/dL (70-99) Calcium Level 7.2 mg/dL (8.5-10.1) Total Bilirubin 3.6 mg/dL (0.2-1.0) Aspartate Amino Transf (AST/SGOT) 92 U/L (15-37) Alanine Aminotransferase (ALT/SGPT) 103 U/L (16-63) Alkaline Phosphatase 92 U/L (46-116) Total Protein 5.2 g/dL (6.4-8.2) Albumin 2.1 g/dL (3.4-5.0) Albumin/Globulin Ratio 0.7 (1.0-1.7) O2 Saturation 95 % (92-99) Arterial Blood pH 7.42 (7.35-7.45) Arterial Blood pCO2 at Patient Temp 42 mmHg (35-46) Arterial Blood pO2 at Patient Temp 80 mmHg (65-108) Arterial Blood HCO3 27 mmol/L (21-28) Arterial Blood Base Excess 2 mmol/L (-3-3) FiO2 50 Laboratory Tests Test 01/10/21 09:50 01/10/21 09:55 White Blood Count 7.3 x10^3/uL (4.0-11.0) Red Blood Count 3.37 x10^6/uL (4.30-5.70) Hemoglobin 8.3 g/dL (13.0-17.5) Hematocrit 27.7 % (39.0-53.0) Mean Corpuscular Volume 82 fL (79-100) Mean Corpuscular Hemoglobin 25 pg (25-35) Mean Corpuscular Hemoglobin Concent 30 g/dL (31-37) Red Cell Distribution Width 25.7 % (11.5-14.5) Platelet Count 129 x10^3/uL (140-400) Neutrophils (%) (Auto) 85 % (31-73) Lymphocytes (%) (Auto) 5 % (24-48) Monocytes (%) (Auto) 9 % (0-9) Eosinophils (%) (Auto) 1 % (0-3) Basophils (%) (Auto) 0 % (0-3) Neutrophils # (Auto) 6.2 x10^3/uL (1.8-7.7) Lymphocytes # (Auto) 0.4 x10^3/uL (1.0-4.8) Monocytes # (Auto) 0.6 x10^3/uL (0.0-1.1) Eosinophils # (Auto) 0.1 x10^3/uL (0.0-0.7) Basophils # (Auto) 0.0 x10^3/uL (0.0-0.2) Sodium Level 140 mmol/L (136-145) Potassium Level 4.5 mmol/L (3.5-5.1) Chloride Level 108 mmol/L (98-107) Carbon Dioxide Level 28 mmol/L (21-32) Anion Gap 4 (6-14) Blood Urea Nitrogen 37 mg/dL (8-26) Creatinine 1.1 mg/dL (0.7-1.3) Estimated GFR (Cockcroft-Gault) 64.9 BUN/Creatinine Ratio 34 (6-20) Glucose Level 100 mg/dL (70-99) Calcium Level 7.2 mg/dL (8.5-10.1) Total Bilirubin 3.6 mg/dL (0.2-1.0) Aspartate Amino Transf (AST/SGOT) 92 U/L (15-37) Alanine Aminotransferase (ALT/SGPT) 103 U/L (16-63) Alkaline Phosphatase 92 U/L (46-116) Total Protein 5.2 g/dL (6.4-8.2) Albumin 2.1 g/dL (3.4-5.0) Albumin/Globulin Ratio 0.7 (1.0-1.7) O2 Saturation 95 % (92-99) Arterial Blood pH 7.42 (7.35-7.45) Arterial Blood pCO2 at Patient Temp 42 mmHg (35-46) Arterial Blood pO2 at Patient Temp 80 mmHg (65-108) Arterial Blood HCO3 27 mmol/L (21-28) Arterial Blood Base Excess 2 mmol/L (-3-3) FiO2 50 Medications Active Scripts Medications Dose Route/Sig Max Daily Dose Days Date Category Sertraline Hcl 50 Mg Tablet 50 Mg PO DAILY 12/29/20 Reported Budesonide 0.5 Mg/2 Ml Ampul.neb 1 Vial NEB BID 12/29/20 Reported Tudorza Pressair (Aclidinium [place]) 400 Mcg Aer.pow.ba 1 Puff IH BID 12/29/20 Reported Ipratropium [place] 0.2 Mg/1 Ml Solution 1 Vial NEB QID 12/29/20 Reported Klor-Con 10 (Potassium Chloride) 10 Meq Tablet.er 1 Tab PO DAILY 30 12/29/20 Reported Lyrica (Pregabalin) 75 Mg Capsule 1 Cap PO BID 12/29/20 Reported Lisinopril 5 Mg Tablet 5 Mg PO DAILY 10/17/20 Rx Senna Plus Tablet (Sennosides/Docusate Sodium) 1 Each Tablet 2 Tab PO QHS 14 10/01/20 Rx Ipratropium [place] 15 Ml [place] 2 Sprays NS BID 07/08/20 Reported Metoprolol Succinate ( Xl ) (Metoprolol Succinate) 25 Mg Tab.er.24h 1 Tab PO DAILY 30 07/08/20 Reported Pantoprazole Sodium 40 Mg Tablet.dr 1 Tab PO DAILY 30 07/08/20 Reported Gabapentin (Gabapentin) 300 Mg Capsule 300 Mg PO DAILYWSUP 06/30/19 Reported Aspirin 81 Mg Tab.chew 81 Mg PO DAILY 06/30/19 Reported Furosemide 40 Mg Tablet 40 Mg PO DAILY MDD 1 10/19/18 Rx Lovastatin 40 Mg Tablet 1 Tab PO DAILY 12/14/14 Reported Impression . IMPRESSION: 1. Chronic respiratory failure, multifactorial secondary to severe chronic obstructive pulmonary disease, coronary artery disease, previous coronary artery bypass grafting and deconditioning. 2. Cardiomyopathy, status post coronary artery bypass grafting. 3. Chronic atrial fibrillation. 4. Recent diagnosis of colon cancer. S/P open right colon resection, liver b iopsy, see path report 5. Ascites 6. Cephalic vein thrombosis 7. Dysphagia Diagnosis: A. Distal ileum, cecum, ascending colon, and proximal transverse colon with attached mesocolon and portion of omentum, extended right colon resection: - Invasive colorectal adenocarcinoma, moderately to poorly differentiated, forming a nearly circumferential, centrally ulcerated tumor mass measuring up to 5.5 cm in greatest dimension, with tumor invasion through muscularis propria into subserosa/mesocolon. - Focal lymphovascular tumor invasion identified. - Fourteen mesocolic lymph nodes negative for tumor (0/14). - Proximal (distal ileum), distal (transverse colon), and mesocolic margins of resection negative for tumor. - Omentum negative for tumor. - Adiposity of ileocecal valve. - Fibrofatty obliteration of distal appendiceal lumen. - Melanosis coli. . B. Liver biopsy: - Metastatic adenocarcinoma, consistent with colorectal origin. Plan . Ice chips sparingly okay by me Follow-up with speech in a couple of days Discussed with surgery Continue oxygen supplementation Up to chair Avoid oversedation Aggressive pulmonary hygiene DVT GI prophylaxis RADAMES MORALES MD Jan 11, 2021 08:27
--- NOTE | 2021-01-11 08:27 | PDOC ---
PULMONARY PROGRESS NOTES DATE: 01/11/21 TIME: 08:27 Subjective Patient denies increasing shortness of air. Cough mostly nonproductive no chest pain no pressure some abdominal pain Vitals Vital Signs Date Time Temp Pulse Resp B/P (MAP) Pulse Ox O2 Delivery O2 Flow Rate FiO2 01/11/21 07:14 94 Nasal Cannula 15.0 01/11/21 03:52 98.1 69 16 107/62 (77) 98.1 ROS: No Nausea, No Chest Pain, No Increase Cough General: Alert, No acute distress Lungs: Clear Cardiovascular: S1, S2 Abdomen: Soft, Non-tender, Other (distended ) Neuro Exam: Alert Extremities: Other (Edema) Skin: Warm Labs Laboratory Tests Test 01/10/21 09:50 01/10/21 09:55 White Blood Count 7.3 x10^3/uL (4.0-11.0) Red Blood Count 3.37 x10^6/uL (4.30-5.70) Hemoglobin 8.3 g/dL (13.0-17.5) Hematocrit 27.7 % (39.0-53.0) Mean Corpuscular Volume 82 fL (79-100) Mean Corpuscular Hemoglobin 25 pg (25-35) Mean Corpuscular Hemoglobin Concent 30 g/dL (31-37) Red Cell Distribution Width 25.7 % (11.5-14.5) Platelet Count 129 x10^3/uL (140-400) Neutrophils (%) (Auto) 85 % (31-73) Lymphocytes (%) (Auto) 5 % (24-48) Monocytes (%) (Auto) 9 % (0-9) Eosinophils (%) (Auto) 1 % (0-3) Basophils (%) (Auto) 0 % (0-3) Neutrophils # (Auto) 6.2 x10^3/uL (1.8-7.7) Lymphocytes # (Auto) 0.4 x10^3/uL (1.0-4.8) Monocytes # (Auto) 0.6 x10^3/uL (0.0-1.1) Eosinophils # (Auto) 0.1 x10^3/uL (0.0-0.7) Basophils # (Auto) 0.0 x10^3/uL (0.0-0.2) Sodium Level 140 mmol/L (136-145) Potassium Level 4.5 mmol/L (3.5-5.1) Chloride Level 108 mmol/L (98-107) Carbon Dioxide Level 28 mmol/L (21-32) Anion Gap 4 (6-14) Blood Urea Nitrogen 37 mg/dL (8-26) Creatinine 1.1 mg/dL (0.7-1.3) Estimated GFR (Cockcroft-Gault) 64.9 BUN/Creatinine Ratio 34 (6-20) Glucose Level 100 mg/dL (70-99) Calcium Level 7.2 mg/dL (8.5-10.1) Total Bilirubin 3.6 mg/dL (0.2-1.0) Aspartate Amino Transf (AST/SGOT) 92 U/L (15-37) Alanine Aminotransferase (ALT/SGPT) 103 U/L (16-63) Alkaline Phosphatase 92 U/L (46-116) Total Protein 5.2 g/dL (6.4-8.2) Albumin 2.1 g/dL (3.4-5.0) Albumin/Globulin Ratio 0.7 (1.0-1.7) O2 Saturation 95 % (92-99) Arterial Blood pH 7.42 (7.35-7.45) Arterial Blood pCO2 at Patient Temp 42 mmHg (35-46) Arterial Blood pO2 at Patient Temp 80 mmHg (65-108) Arterial Blood HCO3 27 mmol/L (21-28) Arterial Blood Base Excess 2 mmol/L (-3-3) FiO2 50 Laboratory Tests Test 01/10/21 09:50 01/10/21 09:55 White Blood Count 7.3 x10^3/uL (4.0-11.0) Red Blood Count 3.37 x10^6/uL (4.30-5.70) Hemoglobin 8.3 g/dL (13.0-17.5) Hematocrit 27.7 % (39.0-53.0) Mean Corpuscular Volume 82 fL (79-100) Mean Corpuscular Hemoglobin 25 pg (25-35) Mean Corpuscular Hemoglobin Concent 30 g/dL (31-37) Red Cell Distribution Width 25.7 % (11.5-14.5) Platelet Count 129 x10^3/uL (140-400) Neutrophils (%) (Auto) 85 % (31-73) Lymphocytes (%) (Auto) 5 % (24-48) Monocytes (%) (Auto) 9 % (0-9) Eosinophils (%) (Auto) 1 % (0-3) Basophils (%) (Auto) 0 % (0-3) Neutrophils # (Auto) 6.2 x10^3/uL (1.8-7.7) Lymphocytes # (Auto) 0.4 x10^3/uL (1.0-4.8) Monocytes # (Auto) 0.6 x10^3/uL (0.0-1.1) Eosinophils # (Auto) 0.1 x10^3/uL (0.0-0.7) Basophils # (Auto) 0.0 x10^3/uL (0.0-0.2) Sodium Level 140 mmol/L (136-145) Potassium Level 4.5 mmol/L (3.5-5.1) Chloride Level 108 mmol/L (98-107) Carbon Dioxide Level 28 mmol/L (21-32) Anion Gap 4 (6-14) Blood Urea Nitrogen 37 mg/dL (8-26) Creatinine 1.1 mg/dL (0.7-1.3) Estimated GFR (Cockcroft-Gault) 64.9 BUN/Creatinine Ratio 34 (6-20) Glucose Level 100 mg/dL (70-99) Calcium Level 7.2 mg/dL (8.5-10.1) Total Bilirubin 3.6 mg/dL (0.2-1.0) Aspartate Amino Transf (AST/SGOT) 92 U/L (15-37) Alanine Aminotransferase (ALT/SGPT) 103 U/L (16-63) Alkaline Phosphatase 92 U/L (46-116) Total Protein 5.2 g/dL (6.4-8.2) Albumin 2.1 g/dL (3.4-5.0) Albumin/Globulin Ratio 0.7 (1.0-1.7) O2 Saturation 95 % (92-99) Arterial Blood pH 7.42 (7.35-7.45) Arterial Blood pCO2 at Patient Temp 42 mmHg (35-46) Arterial Blood pO2 at Patient Temp 80 mmHg (65-108) Arterial Blood HCO3 27 mmol/L (21-28) Arterial Blood Base Excess 2 mmol/L (-3-3) FiO2 50 Medications Active Scripts Medications Dose Route/Sig Max Daily Dose Days Date Category Sertraline Hcl 50 Mg Tablet 50 Mg PO DAILY 12/29/20 Reported Budesonide 0.5 Mg/2 Ml Ampul.neb 1 Vial NEB BID 12/29/20 Reported Tudorza Pressair (Aclidinium [place]) 400 Mcg Aer.pow.ba 1 Puff IH BID 12/29/20 Reported Ipratropium [place] 0.2 Mg/1 Ml Solution 1 Vial NEB QID 12/29/20 Reported Klor-Con 10 (Potassium Chloride) 10 Meq Tablet.er 1 Tab PO DAILY 30 12/29/20 Reported Lyrica (Pregabalin) 75 Mg Capsule 1 Cap PO BID 12/29/20 Reported Lisinopril 5 Mg Tablet 5 Mg PO DAILY 10/17/20 Rx Senna Plus Tablet (Sennosides/Docusate Sodium) 1 Each Tablet 2 Tab PO QHS 14 10/01/20 Rx Ipratropium [place] 15 Ml [place] 2 Sprays NS BID 07/08/20 Reported Metoprolol Succinate ( Xl ) (Metoprolol Succinate) 25 Mg Tab.er.24h 1 Tab PO DAILY 30 07/08/20 Reported Pantoprazole Sodium 40 Mg Tablet.dr 1 Tab PO DAILY 30 07/08/20 Reported Gabapentin (Gabapentin) 300 Mg Capsule 300 Mg PO DAILYWSUP 06/30/19 Reported Aspirin 81 Mg Tab.chew 81 Mg PO DAILY 06/30/19 Reported Furosemide 40 Mg Tablet 40 Mg PO DAILY MDD 1 10/19/18 Rx Lovastatin 40 Mg Tablet 1 Tab PO DAILY 12/14/14 Reported Impression . IMPRESSION: 1. Chronic respiratory failure, multifactorial secondary to severe chronic obstructive pulmonary disease, coronary artery disease, previous coronary artery bypass grafting and deconditioning. 2. Cardiomyopathy, status post coronary artery bypass grafting. 3. Chronic atrial fibrillation. 4. Recent diagnosis of colon cancer. S/P open right colon resection, liver biopsy, see path report 5. Ascites 6. Cephalic vein thrombosis Diagnosis: A. Distal ileum, cecum, ascending colon, and proximal transverse colon with attached mesocolon and portion of omentum, extended right colon resection: - Invasive colorectal adenocarcinoma, moderately to poorly differentiated, forming a nearly circumferential, centrally ulcerated tumor mass measuring up to 5.5 cm in greatest dimension, with tumor invasion through muscularis propria into subserosa/mesocolon. - Focal lymphovascular tumor invasion identified. - Fourteen mesocolic lymph nodes negative for tumor (0/14). - Proximal (distal ileum), distal (transverse colon), and mesocolic margins of resection negative for tumor. - Omentum negative for tumor. - Adiposity of ileocecal valve. - Fibrofatty obliteration of distal appendiceal lumen. - Melanosis coli. . B. Liver biopsy: - Metastatic adenocarcinoma, consistent with colorectal origin. Plan . Continue oxygen supplementation Up to chair Avoid oversedation Aggressive pulmonary hygiene DVT GI prophylaxis Enteral nutrition per RADAMES Cartagena MD Jan 11, 2021 08:27
[2021-01-11 08:31] LABS: BASO % 0 % (0-3); EOS % 1 % (0-3); HEMATOCRIT 27.6 % (39.0-53.0); HEMOGLOBIN 8.4 g/dL (13.0-17.5); LYMPH # 0.5 x10^3/uL (1.0-4.8); LYMPH % 7 % (24-48); MEAN CORPUSCULAR HEMOGLOBIN 25 pg (25-35); MEAN CORPUSCULAR HGB CONC 31 g/dL (31-37); MEAN CORPUSCULAR VOLUME 82 fL (79-100); MONO # 0.7 x10^3/uL (0.0-1.1); MONO % 9 % (0-9); NEUT # 6.4 x10^3/uL (1.8-7.7); NEUT % 83 % (31-73); PLATELET COUNT 134 x10^3/uL (140-400); RED BLOOD COUNT 3.38 x10^6/uL (4.30-5.70); RED CELL DISTRIBUTION WIDTH 25.3 % (11.5-14.5); WHITE BLOOD COUNT 7.6 x10^3/uL (4.0-11.0)
[2021-01-11 08:41] LABS: CALCIUM 7.4 mg/dL (8.5-10.1); CREATININE 1.1 mg/dL (0.7-1.3); GFR 64.9; MAGNESIUM 2.3 mg/dL (1.8-2.4); POTASSIUM 4.4 mmol/L (3.5-5.1)
[2021-01-11] MEDS: IPRATROPIUM BROMIDE 0.06% NASAL SPRAY 15ML BOTTLE. NS SCH ×2 (09:00→22:23)
[2021-01-11 11:00] VITALS: BP 101/54
--- NOTE | 2021-01-11 12:23 | PDOC ---
[employer] PROGRESS NOTE Date of Service DOS: DATE: 01/11/21 TIME: 12:21 Chief Complaint Chief Complaint Acute Abd pain, fluid overload colon cancer, status post open right colectomy with liver biopsy on 01/04/2021 iron deficiency anemia, obese, BMI 32 weakness, debility depression, insomnia neuropathy History of Present Illness History of Present Illness 01/11/2021 No acute events overnight. Patient continues to be on Ventimask at 15 L. Patient continues to be needing IV diuresis. Recommend continue with PT OT today. Patient's chart, labs, images were reviewed and discussed with RN 01/10/2021 No acute events overnight. Patient this morning had desaturation to 90s while on Venturi mask. Chest x-ray is ordered. Patient continues to be on IV diuretics. Pain is controlled and patient is passing flatus. We will continue with PPN. Patient's chart, labs, images were reviewed and discussed with RN 01/09, has small amount of stool output, on full liquid, poor PO intake, cont the PPN, needs rehab, he has some emotion today about nto improving much, I discussed at length that everything right now is going well and just takes time, no new complaint 01/08, change fluid from LR to PPN, cont other, pain OK, he reports stool, RN doesnt think so, cont current, if he stools, we can try liquid diet, try OOB to chair 4 L nasal cannula O2. Afebrile. Sit up in chair. Pain is still intermittent. Even with ice chips he is getting some esophageal spasm and pain. Not passing flatus currently. Feeling well overall. Hb 7.9, CR 1.2. Okay to transfer out of ICU. 01/06: On 15L facemask O2, up from home 4L. He is feeling well, asking to eat and drink. Still using his CREDIT CHECKER. IV protonix today 01/05: Seen in ICU. On facemask O2. He actually has bowel sounds is reasonably controlled abdominal pain with CREDIT CHECKER. His only complaint is dry mouth. 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 Transferred to ICU thereafter. 01/02: Patient seen and examined, sitting up and talkative. He has no new complaints 01/01: Issues swallowing liquids, ordering bedside swallow. He did take a drink and have a coughing fit during our conversation, says this happens frequently 12/31: Patient seen and examined. Discussed surgery date push back 12/30: Discussed CRC prognosis and he wanted a second opinion on the prognosis. Called Dr. Cullen who is willing to complete surgery if patient decides Vitals/I&O Vitals/I&O: Vital Signs Date Time Temp Pulse Resp B/P (MAP) Pulse Ox O2 Delivery O2 Flow Rate FiO2 01/11/21 11:00 98.5 68 19 101/54 (70) 98 Venturi Mask 15.0 98.5 I & O 01/10/21 01/10/21 01/11/21 15:00 23:00 07:00 Intake Total 1000 ml Output Total 800 ml 200 ml 900 ml Balance -800 ml -200 ml 100 ml Physical Exam General: Alert, Oriented X3, mild distress Heart: Regular rate Lungs: Clear Abdomen: Normal bowel sounds Extremities: No clubbing, No cyanosis, Other (Mild edema) Skin: No rashes, Other (Bruising on arms) Labs Labs: Laboratory Tests Test 01/11/21 08:10 White Blood Count 7.6 x10^3/uL (4.0-11.0) Red Blood Count 3.38 x10^6/uL (4.30-5.70) Hemoglobin 8.4 g/dL (13.0-17.5) Hematocrit 27.6 % (39.0-53.0) Mean Corpuscular Volume 82 fL (79-100) Mean Corpuscular Hemoglobin 25 pg (25-35) Mean Corpuscular Hemoglobin Concent 31 g/dL (31-37) Red Cell Distribution Width 25.3 % (11.5-14.5) Platelet Count 134 x10^3/uL (140-400) Neutrophils (%) (Auto) 83 % (31-73) Lymphocytes (%) (Auto) 7 % (24-48) Monocytes (%) (Auto) 9 % (0-9) Eosinophils (%) (Auto) 1 % (0-3) Basophils (%) (Auto) 0 % (0-3) Neutrophils # (Auto) 6.4 x10^3/uL (1.8-7.7) Lymphocytes # (Auto) 0.5 x10^3/uL (1.0-4.8) Monocytes # (Auto) 0.7 x10^3/uL (0.0-1.1) Eosinophils # (Auto) 0.0 x10^3/uL (0.0-0.7) Basophils # (Auto) 0.0 x10^3/uL (0.0-0.2) Sodium Level 139 mmol/L (136-145) Potassium Level 4.4 mmol/L (3.5-5.1) Chloride Level 107 mmol/L (98-107) Carbon Dioxide Level 27 mmol/L (21-32) Anion Gap 5 (6-14) Blood Urea Nitrogen 35 mg/dL (8-26) Creatinine 1.1 mg/dL (0.7-1.3) Estimated GFR (Cockcroft-Gault) 64.9 Glucose Level 118 mg/dL (70-99) Calcium Level 7.4 mg/dL (8.5-10.1) Magnesium Level 2.3 mg/dL (1.8-2.4) Assessment and Plan Assessmemt and Plan Problems Medical Problems: (1) Abdominal pain Status: Acute Comment Review of Relevant I have reviewed the following items jay (where applicable) has been applied. Justifications for Admission Other Justification LINDA HANSEN MD Jan 11, 2021 12:23
--- NOTE | 2021-01-11 12:27 | PDOC ---
SURGICAL PROGRESS NOTE DATE: 01/11/21 TIME: 12:26 Subjective requiring non-rebreather would like ice and water + flatus and stool Vital Signs Vital Signs Date Time Temp Pulse Resp B/P (MAP) Pulse Ox O2 Delivery O2 Flow Rate FiO2 01/11/21 11:00 98.5 68 19 101/54 (70) 98 Venturi Mask 15.0 98.5 I&O Intake and Output 01/11/21 07:00 Intake Total 1000 ml Output Total 1900 ml Balance -900 ml Intake Oral 0 ml IV Total 1000 ml Output Urine Total 1900 ml General: Cooperative, No acute distress Abdomen: Soft, No tenderness Labs Laboratory Tests Test 01/10/21 09:50 01/10/21 09:55 01/11/21 08:10 White Blood Count 7.3 x10^3/uL (4.0-11.0) 7.6 x10^3/uL (4.0-11.0) Red Blood Count 3.37 x10^6/uL (4.30-5.70) 3.38 x10^6/uL (4.30-5.70) Hemoglobin 8.3 g/dL (13.0-17.5) 8.4 g/dL (13.0-17.5) Hematocrit 27.7 % (39.0-53.0) 27.6 % (39.0-53.0) Mean Corpuscular Volume 82 fL (79-100) 82 fL (79-100) Mean Corpuscular Hemoglobin 25 pg (25-35) 25 pg (25-35) Mean Corpuscular Hemoglobin Concent 30 g/dL (31-37) 31 g/dL (31-37) Red Cell Distribution Width 25.7 % (11.5-14.5) 25.3 % (11.5-14.5) Platelet Count 129 x10^3/uL (140-400) 134 x10^3/uL (140-400) Neutrophils (%) (Auto) 85 % (31-73) 83 % (31-73) Lymphocytes (%) (Auto) 5 % (24-48) 7 % (24-48) Monocytes (%) (Auto) 9 % (0-9) 9 % (0-9) Eosinophils (%) (Auto) 1 % (0-3) 1 % (0-3) Basophils (%) (Auto) 0 % (0-3) 0 % (0-3) Neutrophils # (Auto) 6.2 x10^3/uL (1.8-7.7) 6.4 x10^3/uL (1.8-7.7) Lymphocytes # (Auto) 0.4 x10^3/uL (1.0-4.8) 0.5 x10^3/uL (1.0-4.8) Monocytes # (Auto) 0.6 x10^3/uL (0.0-1.1) 0.7 x10^3/uL (0.0-1.1) Eosinophils # (Auto) 0.1 x10^3/uL (0.0-0.7) 0.0 x10^3/uL (0.0-0.7) Basophils # (Auto) 0.0 x10^3/uL (0.0-0.2) 0.0 x10^3/uL (0.0-0.2) Sodium Level 140 mmol/L (136-145) 139 mmol/L (136-145) Potassium Level 4.5 mmol/L (3.5-5.1) 4.4 mmol/L (3.5-5.1) Chloride Level 108 mmol/L (98-107) 107 mmol/L (98-107) Carbon Dioxide Level 28 mmol/L (21-32) 27 mmol/L (21-32) Anion Gap 4 (6-14) 5 (6-14) Blood Urea Nitrogen 37 mg/dL (8-26) 35 mg/dL (8-26) Creatinine 1.1 mg/dL (0.7-1.3) 1.1 mg/dL (0.7-1.3) Estimated GFR (Cockcroft-Gault) 64.9 64.9 BUN/Creatinine Ratio 34 (6-20) Glucose Level 100 mg/dL (70-99) 118 mg/dL (70-99) Calcium Level 7.2 mg/dL (8.5-10.1) 7.4 mg/dL (8.5-10.1) Total Bilirubin 3.6 mg/dL (0.2-1.0) Aspartate Amino Transf (AST/SGOT) 92 U/L (15-37) Alanine Aminotransferase (ALT/SGPT) 103 U/L (16-63) Alkaline Phosphatase 92 U/L (46-116) Total Protein 5.2 g/dL (6.4-8.2) Albumin 2.1 g/dL (3.4-5.0) Albumin/Globulin Ratio 0.7 (1.0-1.7) O2 Saturation 95 % (92-99) Arterial Blood pH 7.42 (7.35-7.45) Arterial Blood pCO2 at Patient Temp 42 mmHg (35-46) Arterial Blood pO2 at Patient Temp 80 mmHg (65-108) Arterial Blood HCO3 27 mmol/L (21-28) Arterial Blood Base Excess 2 mmol/L (-3-3) FiO2 50 Magnesium Level 2.3 mg/dL (1.8-2.4) Laboratory Tests Test 01/11/21 08:10 White Blood Count 7.6 x10^3/uL (4.0-11.0) Red Blood Count 3.38 x10^6/uL (4.30-5.70) Hemoglobin 8.4 g/dL (13.0-17.5) Hematocrit 27.6 % (39.0-53.0) Mean Corpuscular Volume 82 fL (79-100) Mean Corpuscular Hemoglobin 25 pg (25-35) Mean Corpuscular Hemoglobin Concent 31 g/dL (31-37) Red Cell Distribution Width 25.3 % (11.5-14.5) Platelet Count 134 x10^3/uL (140-400) Neutrophils (%) (Auto) 83 % (31-73) Lymphocytes (%) (Auto) 7 % (24-48) Monocytes (%) (Auto) 9 % (0-9) Eosinophils (%) (Auto) 1 % (0-3) Basophils (%) (Auto) 0 % (0-3) Neutrophils # (Auto) 6.4 x10^3/uL (1.8-7.7) Lymphocytes # (Auto) 0.5 x10^3/uL (1.0-4.8) Monocytes # (Auto) 0.7 x10^3/uL (0.0-1.1) Eosinophils # (Auto) 0.0 x10^3/uL (0.0-0.7) Basophils # (Auto) 0.0 x10^3/uL (0.0-0.2) Sodium Level 139 mmol/L (136-145) Potassium Level 4.4 mmol/L (3.5-5.1) Chloride Level 107 mmol/L (98-107) Carbon Dioxide Level 27 mmol/L (21-32) Anion Gap 5 (6-14) Blood Urea Nitrogen 35 mg/dL (8-26) Creatinine 1.1 mg/dL (0.7-1.3) Estimated GFR (Cockcroft-Gault) 64.9 Glucose Level 118 mg/dL (70-99) Calcium Level 7.4 mg/dL (8.5-10.1) Magnesium Level 2.3 mg/dL (1.8-2.4) Problem List Problems Medical Problems: (1) Abdominal pain Status: Acute Assessment/Plan ok to proceed with swallow eval, video/barium when stable respiratory Justicifation of Admission Dx: Justifications for Admission: Justification of Admission Dx: Yes Respiratory Failure: Severe Resp Distress EMEKA [employer] AND [employer]EDURES ANALYST Jan 11, 2021 12:27
[2021-01-11 15:00] VITALS: BP 102/56
[2021-01-11] MEDS: IV NORMAL SALINE 1000ML BAG 1,000 ML IV SCH (15:04)
[2021-01-11] MEDS: ENOXAPARIN 40 MG/0.4 ML SYRINGE. SQ SCH (16:00)
[2021-01-11] MEDS: GABAPENTIN 300 MG CAPSULE. PO SCH (16:51)
[2021-01-11 19:48] VITALS: BP 127/52
[2021-01-11] MEDS: SENNOSIDES/DOCUSATE 8.6/50MG TABLET. PO SCH (21:00)
[2021-01-11] MEDS: ONDANSETRON PF 4 MG/2 ML VIAL. IVP PRN (22:23)
[2021-01-11 23:41] VITALS: BP 110/59
[2021-01-12] MEDS: PANTOPRAZOLE IV PUSH 40 MG VIAL. IVP SCH ×2 (01:36→08:31)
[2021-01-12] MEDS: fentaNYL PF VIAL 100 MCG/2 ML VIAL IVP PRN ×2 (01:44→05:29)
[2021-01-12 03:08] VITALS: BP 93/50
[2021-01-12] MEDS: AMINO AC 3%/ELECTROLYTE/GLYCER 1,000 ML IV SCH ×2 (04:43→17:15)
[2021-01-12] MEDS: ONDANSETRON PF 4 MG/2 ML VIAL. IVP PRN (05:29)
[2021-01-12] MEDS ORDERED: PROCHLORPERAZINE 10 MG/2 ML VIAL. IV PRN (06:00)
[2021-01-12 07:00] VITALS: BP 125/65
[2021-01-12] MEDS: IPRATRPIUM/ALBUTEROL 0.5/2.5MG 3 ML NEBU. NEB SCH ×5 (07:02→19:51)
[2021-01-12] MEDS: BUDESONIDE 0.5 MG/2 ML NEBU. NEB SCH ×2 (07:02→19:51)
[2021-01-12] MEDS: PANTOPRAZOLE 40 MG TABLET.DR. PO SCH (07:30)
[2021-01-12] MEDS: ASPIRIN CHEWABLE 81 MG TABLET. PO SCH (07:38)
[2021-01-12] MEDS: POTASSIUM CHLORIDE 10 MEQ TABLET.ER. PO SCH (07:38)
[2021-01-12] MEDS: SERTRALINE 50 MG TABLET. PO SCH (07:39)
[2021-01-12] MEDS: POLYETHYLENE GLYCOL 3350 17 GM PACKET. PO SCH (07:39)
[2021-01-12] MEDS: METOPROLOL SUCC 24HR ER 25 MG TAB.ER.24H. PO SCH (07:39)
[2021-01-12] MEDS: PREGABALIN 75 MG CAPSULE PO SCH ×3 (07:39→21:30)
[2021-01-12] MEDS: ATORVASTATIN CALCIUM 10 MG TABLET. PO SCH (07:39)
[2021-01-12] MEDS: LISINOPRIL 5 MG TABLET. PO SCH (07:39)
--- NOTE | 2021-01-12 08:16 | RAD ---
EXAM: Abdomen, single view. HISTORY: Vomiting. Bowel resection. COMPARISON: 01/04/2021 FINDINGS: Frontal views of the abdomen and pelvis are obtained. There are prominent air-filled loops of bowel throughout the abdomen. This is slightly increased compared to the prior exam. No convincing transition point is seen. There are median sternotomy wires. There are anastomotic sutures and there is postoperative within the ventral abdominal wall. IMPRESSION: Distended air-filled loops of bowel throughout the abdomen, increased compared to the abigail or study and possibly due to postoperative ileus. There is no convincing transition point to suggest obstruction. Electronically signed by: Yaima Meza MD (01/12/2021 8:14 AM) [id number]
[2021-01-12] MEDS: IPRATROPIUM BROMIDE 0.06% NASAL SPRAY 15ML BOTTLE. NS SCH ×2 (09:00→21:29)
[2021-01-12] MEDS: FUROSEMIDE 20 MG/2 ML VIAL. IVP SCH (09:04)
[2021-01-12] MEDS: BISACODYL 10 MG SUPP.RECT. PR SCH (09:04)
--- NOTE | 2021-01-12 09:05 | PDOC ---
PULMONARY PROGRESS NOTES DATE: 01/12/21 TIME: 09:05 Subjective Patient still is short of air at times. No chest pain no pressure Vitals Vital Signs Date Time Temp Pulse Resp B/P (MAP) Pulse Ox O2 Delivery O2 Flow Rate FiO2 01/12/21 07:02 93 Nasal Cannula 5.5 01/12/21 07:00 70 20 125/65 (85) 01/12/21 03:08 97.4 97.4 ROS: No Nausea, No Chest Pain, No Increase Cough General: Alert, No acute distress Lungs: Clear Cardiovascular: S1, S2 Abdomen: Soft, Non-tender, Other (distended ) Neuro Exam: Alert Extremities: Other (Edema) Skin: Warm Labs Laboratory Tests Test 01/10/21 09:50 01/10/21 09:55 01/11/21 08:10 White Blood Count 7.3 x10^3/uL (4.0-11.0) 7.6 x10^3/uL (4.0-11.0) Red Blood Count 3.37 x10^6/uL (4.30-5.70) 3.38 x10^6/uL (4.30-5.70) Hemoglobin 8.3 g/dL (13.0-17.5) 8.4 g/dL (13.0-17.5) Hematocrit 27.7 % (39.0-53.0) 27.6 % (39.0-53.0) Mean Corpuscular Volume 82 fL (79-100) 82 fL (79-100) Mean Corpuscular Hemoglobin 25 pg (25-35) 25 pg (25-35) Mean Corpuscular Hemoglobin Concent 30 g/dL (31-37) 31 g/dL (31-37) Red Cell Distribution Width 25.7 % (11.5-14.5) 25.3 % (11.5-14.5) Platelet Count 129 x10^3/uL (140-400) 134 x10^3/uL (140-400) Neutrophils (%) (Auto) 85 % (31-73) 83 % (31-73) Lymphocytes (%) (Auto) 5 % (24-48) 7 % (24-48) Monocytes (%) (Auto) 9 % (0-9) 9 % (0-9) Eosinophils (%) (Auto) 1 % (0-3) 1 % (0-3) Basophils (%) (Auto) 0 % (0-3) 0 % (0-3) Neutrophils # (Auto) 6.2 x10^3/uL (1.8-7.7) 6.4 x10^3/uL (1.8-7.7) Lymphocytes # (Auto) 0.4 x10^3/uL (1.0-4.8) 0.5 x10^3/uL (1.0-4.8) Monocytes # (Auto) 0.6 x10^3/uL (0.0-1.1) 0.7 x10^3/uL (0.0-1.1) Eosinophils # (Auto) 0.1 x10^3/uL (0.0-0.7) 0.0 x10^3/uL (0.0-0.7) Basophils # (Auto) 0.0 x10^3/uL (0.0-0.2) 0.0 x10^3/uL (0.0-0.2) Sodium Level 140 mmol/L (136-145) 139 mmol/L (136-145) Potassium Level 4.5 mmol/L (3.5-5.1) 4.4 mmol/L (3.5-5.1) Chloride Level 108 mmol/L (98-107) 107 mmol/L (98-107) Carbon Dioxide Level 28 mmol/L (21-32) 27 mmol/L (21-32) Anion Gap 4 (6-14) 5 (6-14) Blood Urea Nitrogen 37 mg/dL (8-26) 35 mg/dL (8-26) Creatinine 1.1 mg/dL (0.7-1.3) 1.1 mg/dL (0.7-1.3) Estimated GFR (Cockcroft-Gault) 64.9 64.9 BUN/Creatinine Ratio 34 (6-20) Glucose Level 100 mg/dL (70-99) 118 mg/dL (70-99) Calcium Level 7.2 mg/dL (8.5-10.1) 7.4 mg/dL (8.5-10.1) Total Bilirubin 3.6 mg/dL (0.2-1.0) Aspartate Amino Transf (AST/SGOT) 92 U/L (15-37) Alanine Aminotransferase (ALT/SGPT) 103 U/L (16-63) Alkaline Phosphatase 92 U/L (46-116) Total Protein 5.2 g/dL (6.4-8.2) Albumin 2.1 g/dL (3.4-5.0) Albumin/Globulin Ratio 0.7 (1.0-1.7) O2 Saturation 95 % (92-99) Arterial Blood pH 7.42 (7.35-7.45) Arterial Blood pCO2 at Patient Temp 42 mmHg (35-46) Arterial Blood pO2 at Patient Temp 80 mmHg (65-108) Arterial Blood HCO3 27 mmol/L (21-28) Arterial Blood Base Excess 2 mmol/L (-3-3) FiO2 50 Magnesium Level 2.3 mg/dL (1.8-2.4) Medications Active Scripts Medications Dose Route/Sig Max Daily Dose Days Date Category Sertraline Hcl 50 Mg Tablet 50 Mg PO DAILY 12/29/20 Reported Budesonide 0.5 Mg/2 Ml Ampul.neb 1 Vial NEB BID 12/29/20 Reported Tudorza Pressair (Aclidinium [place]) 400 Mcg Aer.pow.ba 1 Puff IH BID 12/29/20 Reported Ipratropium [place] 0.2 Mg/1 Ml Solution 1 Vial NEB QID 12/29/20 Reported Klor-Con 10 (Potassium Chloride) 10 Meq Tablet.er 1 Tab PO DAILY 30 12/29/20 Reported Lyrica (Pregabalin) 75 Mg Capsule 1 Cap PO BID 12/29/20 Reported Lisinopril 5 Mg Tablet 5 Mg PO DAILY 10/17/20 Rx Senna Plus Tablet (Sennosides/Docusate Sodium) 1 Each Tablet 2 Tab PO QHS 14 10/01/20 Rx Ipratropium [place] 15 Ml [place] 2 Sprays NS BID 07/08/20 Reported Metoprolol Succinate ( Xl ) (Metoprolol Succinate) 25 Mg Tab.er.24h 1 Tab PO DAILY 30 07/08/20 Reported Pantoprazole Sodium 40 Mg Tablet.dr 1 Tab PO DAILY 30 07/08/20 Reported Gabapentin (Gabapentin) 300 Mg Capsule 300 Mg PO DAILYWSUP 06/30/19 Reported Aspirin 81 Mg Tab.chew 81 Mg PO DAILY 8/26/19 Reported Furosemide 40 Mg Tablet 40 Mg PO DAILY MDD 1 10/19/18 Rx Lovastatin 40 Mg Tablet 1 Tab PO DAILY 12/14/14 Reported Impression . IMPRESSION: 1. Chronic respiratory failure, multifactorial secondary to severe chronic obstructive pulmonary disease, coronary artery disease, previous coronary artery bypass grafting and deconditioning. 2. Cardiomyopathy, status post coronary artery bypass grafting. 3. Chronic atrial fibrillation. 4. Recent diagnosis of colon cancer. S/P open right colon resection, liver biopsy, see path report 5. Ascites 6. Cephalic vein thrombosis 7. Dysphagia Diagnosis: A. Distal ileum, cecum, ascending colon, and proximal transverse colon with attached mesocolon and portion of omentum, extended right colon resection: - Invasive colorectal adenocarcinoma, moderately to poorly differentiated, forming a nearly circumferential, centrally ulcerated tumor mass measuring up to 5.5 cm in greatest dimension, with tumor invasion through muscularis propria into subserosa/mesocolon. - Focal lymphovascular tumor invasion identified. - Fourteen mesocolic lymph nodes negative for tumor (0/14). - Proximal (distal ileum), distal (transverse colon), and mesocolic margins of resection negative for tumor. - Omentum negative for tumor. - Adiposity of ileocecal valve. - Fibrofatty obliteration of distal appendiceal lumen. - Melanosis coli. . B. Liver biopsy: - Metastatic adenocarcinoma, consistent with colorectal origin. Plan . To possibly undergo speech evaluation with video dysphagia study today Patient being evaluated for's new Discussed with surgery Continue oxygen supplementation Up to chair Avoid oversedation Aggressive pulmonary hygiene DVT GI prophylaxis RADAMES MORALES MD Jan 12, 2021 09:05
[2021-01-12 11:00] VITALS: BP 111/57
[2021-01-12] MEDS ORDERED: BARIUM SULFATE 40% (APPLE) 148 GM PWD. PO ONE (11:00)
--- NOTE | 2021-01-12 11:32 | PDOC ---
PROGRESS NOTES Date of Service DATE: 01/12/21 TIME: 11:31 Subjective Subjective feels well, on nasal cannula Objective Objective Vital Signs Date Time Temp Pulse Resp B/P (MAP) Pulse Ox O2 Delivery O2 Flow Rate FiO2 01/12/21 11:26 91 Nasal Cannula 5.0 01/12/21 11:00 95.6 70 20 111/57 (75) 95.6 Intake and Output 01/12/21 06:59 Intake Total 0 ml Output Total 1700 ml Balance -1700 ml Intake Oral 0 ml Output Urine Total 1700 ml Physical Exam Abdomen: Soft, No tenderness Assessment Assessment Problems Medical Problems: (1) Abdominal pain Status: Acute Plan Plan of Care Await swallow study Comment Review of Relevant I have reviewed the following items jay (where applicable) has been applied. Labs Laboratory Tests Test 01/11/21 08:10 White Blood Count 7.6 x10^3/uL (4.0-11.0) Red Blood Count 3.38 x10^6/uL (4.30-5.70) Hemoglobin 8.4 g/dL (13.0-17.5) Hematocrit 27.6 % (39.0-53.0) Mean Corpuscular Volume 82 fL (79-100) Mean Corpuscular Hemoglobin 25 pg (25-35) Mean Corpuscular Hemoglobin Concent 31 g/dL (31-37) Red Cell Distribution Width 25.3 % (11.5-14.5) Platelet Count 134 x10^3/uL (140-400) Neutrophils (%) (Auto) 83 % (31-73) Lymphocytes (%) (Auto) 7 % (24-48) Monocytes (%) (Auto) 9 % (0-9) Eosinophils (%) (Auto) 1 % (0-3) Basophils (%) (Auto) 0 % (0-3) Neutrophils # (Auto) 6.4 x10^3/uL (1.8-7.7) Lymphocytes # (Auto) 0.5 x10^3/uL (1.0-4.8) Monocytes # (Auto) 0.7 x10^3/uL (0.0-1.1) Eosinophils # (Auto) 0.0 x10^3/uL (0.0-0.7) Basophils # (Auto) 0.0 x10^3/uL (0.0-0.2) Sodium Level 139 mmol/L (136-145) Potassium Level 4.4 mmol/L (3.5-5.1) Chloride Level 107 mmol/L (98-107) Carbon Dioxide Level 27 mmol/L (21-32) Anion Gap 5 (6-14) Blood Urea Nitrogen 35 mg/dL (8-26) Creatinine 1.1 mg/dL (0.7-1.3) Estimated GFR (Cockcroft-Gault) 64.9 Glucose Level 118 mg/dL (70-99) Calcium Level 7.4 mg/dL (8.5-10.1) Magnesium Level 2.3 mg/dL (1.8-2.4) Microbiology 12/29/20 Blood Culture - Final, Complete NO GROWTH AFTER 5 DAYS Medications Current Medications Phytonadione (Vitamin K Ampule) 10 mg 1X ONCE SQ Last administered on 12/29/20at 12:57; Start 12/29/20 at 12:30; Stop 12/29/20 at 12:31; Status DC Piperacillin Sod/ Tazobactam Sod (Zosyn Per Pharmacy) 1 each PRN DAILY PRN MC SEE COMMENTS; Start 12/29/20 at 12:30; Stop 12/30/20 at 13:32; Status DC Piperacillin Sod/ Tazobactam Sod 3.375 gm/Sodium Chloride 50 ml @ 100 mls/hr ONCE ONCE IV Last administered on 12/29/20at 14:18; Start 12/29/20 at 13:00; Stop 12/29/20 at 13:29; Status DC Piperacillin Sod/ Tazobactam Sod 3.375 gm/Sodium Chloride 50 ml @ 100 mls/hr Q6HRS IV Last administered on 12/30/20at 12:01; Start 12/29/20 at 19:00; Stop 12/30/20 at 13:32; Status DC Aspirin (Aspirin Chewable) 81 mg DAILY PO Last administered on 01/10/21at 09:59; Start 12/30/20 at 12:30 Furosemide (Lasix) 40 mg DAILY PO Last administered on 01/03/21at 12:59; Start 12/30/20 at 12:30; Stop 01/08/21 at 07:50; Status DC Gabapentin (Neurontin) 300 mg DAILYWSUP PO Last administered on 01/03/21 09:43; Start 12/30/20 at 17:00 Ipratropium [place] Line (Atrovent) 1 mg QID NEB ; Start 12/30/20 at 13:00; Stop 12/30/20 at 11:54; Status DC Ipratropium [place] Line (Atrovent Nasal) 2 spray BID NS Last administered on 01/12/21 09:00; Start 12/30/20 at 21:00 Lisinopril (Prinivil) 5 mg DAILY PO Last administered on 01/10/21 10:00; Start 12/30/20 at 12:30 Metoprolol Succinate (Toprol Xl) 25 mg DAILY PO Last administered on 01/10/21 10:01; Start 12/30/20 at 12:30 Pantoprazole Sodium (Protonix) 40 mg DAILYAC PO Last administered on 01/10/21 10:00; Start 12/30/20 at 12:30 Pregabalin (Lyrica) 75 mg BID PO Last administered on 01/10/21 10:01; Start 12/30/20 at 21:00 Senna/Docusate Sodium (Senna Plus) 2 tab QHS PO Last administered on 01/09/21 21:28; Start 12/30/20 at 21:00 Sertraline HCl (Zoloft) 50 mg DAILY PO Last administered on 01/10/21 10:00; Start 12/30/20 at 12:30 Albuterol/ Ipratropium (Duoneb) 3 ml RTQID NEB Last administered on 01/12/21 11:26; Start 12/30/20 at 12:00 Atorvastatin Calcium (Lipitor) 10 mg DAILY PO Last administered on 01/10/21 10:01; Start 12/30/20 at 12:30 Potassium Chloride (Klor-Con) 10 meq DAILYWBKFT PO Last administered on 01/10/21 10:00; Start 12/30/20 at 12:30 Fentanyl Citrate (Fentanyl 2ml Vial) 25 mcg PRN Q5MIN PRN IVP MILD PAIN 1-3; Start 12/31/20 at 06:00; Stop 01/01/21 at 05:59; Status DC Fentanyl Citrate (Fentanyl 2ml Vial) 50 mcg PRN Q5MIN PRN IVP MODERATE PAIN 4- 6; Start 12/31/20 at 06:00; Stop 01/01/21 at 05:59; Status DC Morphine Sulfate (Morphine Sulfate) 1 mg PRN Q10MIN PRN IVP SEVERE PAIN 7-10; Start 12/31/20 at 06:00; Stop 01/01/21 at 05:59; Status DC Ringer's Solution 1,000 ml @ 30 mls/hr Q24H IV ; Start 12/31/20 at 06:00; Stop 12/31/20 at 17:59; Status DC Hydromorphone HCl (Dilaudid) 0.5 mg PRN Q10MIN PRN IVP SEVERE PAIN 7-10, 2nd CHOICE; Start 12/31/20 at 06:00; Stop 01/01/21 at 05:59; Status DC Prochlorperazine Edisylate (Compazine) 5 mg PACU PRN PRN IVP NAUSEA, MRX1; Start 12/31/20 at 06:00; Stop 01/01/21 at 05:59; Status DC Fentanyl Citrate (Fentanyl 2ml Vial) 25 mcg PRN Q5MIN PRN IVP MILD PAIN 1-3; Start 12/31/20 at 06:00; Stop 01/01/21 at 05:59; Status UNV Fentanyl Citrate (Fentanyl 2ml Vial) 50 mcg PRN Q5MIN PRN IVP MODERATE PAIN 4- 6; Start 12/31/20 at 06:00; Stop 01/01/21 at 05:59; Status UNV Morphine Sulfate (Morphine Sulfate) 1 mg PRN Q10MIN PRN IVP SEVERE PAIN 7-10; Start 12/31/20 at 06:00; Stop 01/01/21 at 05:59; Status UNV Ringer's Solution 1,000 ml @ 30 mls/hr Q24H IV ; Start 12/31/20 at 06:00; Stop 12/31/20 at 17:59; Status UNV Hydromorphone HCl (Dilaudid) 0.5 mg PRN Q10MIN PRN IVP SEVERE PAIN 7-10, 2nd CHOICE; Start 12/31/20 at 06:00; Stop 01/01/21 at 05:59; Status UNV Prochlorperazine Edisylate (Compazine) 5 mg PACU PRN PRN IVP NAUSEA, MRX1; Start 12/31/20 at 06:00; Stop 01/01/21 at 05:59; Status UNV Furosemide (Lasix) 40 mg 1X ONCE IVP Last administered on 12/30/20at 17:27; Start 12/30/20 at 17:00; Stop 12/30/20 at 17:01; Status DC Glycopyrrolate (Robinul) 1 mg STK-MED ONCE .ROUTE ; Start 12/31/20 at 08:23; Stop 12/31/20 at 08:23; Status DC Propofol (Diprivan) 200 mg STK-MED ONCE IV ; Start 12/31/20 at 08:23; Stop 12/31/20 at 08:23; Status DC Etomidate (Amidate) 20 mg STK-MED ONCE IV ; Start 12/31/20 at 08:23; Stop at 08:24; Status DC Lidocaine HCl (Lidocaine Pf 2% Vial) 5 ml STK-MED ONCE .ROUTE ; Start 12/31/20 at 08:24; Stop 12/31/20 at 08:24; Status DC Phenylephrine HCl (PHENYLEPHRINE in 0.9% NACL PF) 1 mg STK-MED ONCE IV ; Start 12/31/20 at 08:24; Stop 12/31/20 at 08:24; Status DC Ephedrine Sulfate (ePHEDrine PF IN SALINE SYRINGE) 50 mg STK-MED ONCE IV ; Start 12/31/20 at 08:24; Stop 12/31/20 at 08:24; Status DC Succinylcholine Chloride (Anectine) 200 mg STK-MED ONCE .ROUTE ; Start 12/31/20 at 08:24; Stop 12/31/20 at 08:24; Status DC Rocuronium [place] Line (Zemuron) 50 mg STK-MED ONCE .ROUTE ; Start 12/31/20 at 08:24; Stop 12/31/20 at 08:25; Status DC Fentanyl Citrate (Fentanyl 2ml Vial) 100 mcg STK-MED ONCE .ROUTE ; Start 12/31/20 at 08:25; Stop 12/31/20 at 08:25; Status DC Phenylephrine HCl (Can-Synephrine Inj) 10 mg STK-MED ONCE .ROUTE ; Start 12/31/20 at 08:28; Stop 12/31/20 at 08:28; Status DC Bisacodyl (Dulcolax Supp) 10 mg DAILY UT Last administered on 01/12/21 09:04; Start 12/31/20 at 12:00 Polyethylene Glycol (miraLAX PACKET) 17 gm DAILY PO Last administered on 01/10/21 09:59; Start 12/31/20 at 12:00 Iron Sucrose 500 mg/Sodium Chloride 275 ml @ 78.571 mls/ hr 1X ONCE IV Last administered on 12/31/20at 16:06; Start 12/31/20 at 13:00; Stop 12/31/20 at 16:29; Status DC Budesonide (Pulmicort) 0.5 mg RTBID NEB Last administered on 01/12/21at 07:02; Start 01/02/21 at 20:00 Temazepam (Restoril) 15 mg PRN QHS PRN PO INSOMNIA Last administered on 01/03/21at 20:53; Start 01/02/21 at 21:45 Oxymetazoline HCl (Afrin) 2 spray PRN BID PRN NS CONGESTION Last administered on 01/03/21 09:36; Start 01/02/21 at 21:45 Guaifenesin (Mucinex) 600 mg BID PO Last administered on 01/10/21 10:00; Start 01/02/21 at 22:00 Fentanyl Citrate (Fentanyl 2ml Vial) 25 mcg PRN Q5MIN PRN IVP MILD PAIN 1-3 Last administered on 01/04/21at 12:39; Start 01/04/21 at 06:00; Stop 01/05/21 at 05:59; Status DC Fentanyl Citrate (Fentanyl 2ml Vial) 50 mcg PRN Q5MIN PRN IVP MODERATE PAIN 4- 6; Start 01/04/21 at 06:00; Stop 01/05/21 at 05:59; Status DC Morphine Sulfate (Morphine Sulfate) 1 mg PRN Q10MIN PRN IVP SEVERE PAIN 7-10; Start 01/04/21 at 06:00; Stop 01/05/21 at 05:59; Status DC Ringer's Solution 1,000 ml @ 30 mls/hr Q24H IV Last administered on 01/04/21at 08:15; Start 01/04/21 at 06:00; Stop 01/04/21 at 17:59; Status DC Hydromorphone HCl (Dilaudid) 0.5 mg PRN Q10MIN PRN IVP SEVERE PAIN 7-10, 2nd CHOICE Last administered on 01/04/21at 13:44; Start 01/04/21 at 06:00; Stop 01/05/21 at 05:59; Status DC Prochlorperazine Edisylate (Compazine) 5 mg PACU PRN PRN IVP NAUSEA, MRX1; Start 01/04/21 at 06:00; Stop 01/05/21 at 05:59; Status DC Ceftriaxone Sodium (Rocephin) 1 gm 1X PREOP IVP Last administered on 01/04/21at 09:48; Start 01/04/21 at 09:00; Stop 01/05/21 at 11:22; Status DC Metronidazole 100 ml @ 100 mls/hr 1X PREOP IV Last administered on 01/04/21at 09:49; Start 01/04/21 at 09:00; Stop 01/04/21 at 18:00; Status DC Lidocaine HCl (Xylocaine-Mpf 1% 2ml Vial) 2 ml STK-MED ONCE .ROUTE ; Start 01/04/21 at 08:08; Stop 01/04/21 at 08:09; Status DC Propofol (Diprivan) 200 mg STK-MED ONCE IV ; Start 01/04/21 at 08:29; Stop 01/04/21 at 08:30; Status DC Lidocaine HCl (Lidocaine Pf 2% Vial) 5 ml STK-MED ONCE .ROUTE ; Start 01/04/21 at 08:29; Stop 01/04/21 at 08:30; Status DC Ondansetron HCl (Zofran) 4 mg STK-MED ONCE .ROUTE ; Start 01/04/21 at 08:29; Stop 01/04/21 at 08:30; Status DC Dexamethasone Sodium Phosphate (Decadron) 4 mg STK-MED ONCE .ROUTE ; Start 01/04/21 at 08:29; Stop 01/04/21 at 08:30; Status DC Succinylcholine Chloride (Anectine) 200 mg STK-MED ONCE .ROUTE ; Start 01/04/21 at 08:30; Stop 01/04/21 at 08:30; Status DC Rocuronium [place] Line (Zemuron) 50 mg STK-MED ONCE .ROUTE ; Start 01/04/21 at 08:30; Stop 01/04/21 at 08:30; Status DC Fentanyl Citrate (Fentanyl 2ml Vial) 100 mcg STK-MED ONCE .ROUTE ; Start 01/04/21 at 08:30; Stop 01/04/21 at 08:30; Status DC Phenylephrine HCl (Can-Synephrine Inj) 10 mg STK-MED ONCE .ROUTE ; Start 01/04/21 at 08:55; Stop 01/04/21 at 08:56; Status DC Rocuronium [place] Line (Zemuron) 50 mg STK-MED ONCE .ROUTE ; Start 01/04/21 at 09:43; Stop 01/04/21 at 09:43; Status DC Cellulose (Surgicel Hemostat 4x8) 1 each STK-MED ONCE .ROUTE Last administered on 01/04/21at 09:42; Start 01/04/21 at 10:43; Stop 01/04/21 at 10:44; Status DC Cellulose (Surgicel Hemostat 4x8) 1 each STK-MED ONCE .ROUTE Last administered on 01/04/21at 09:42; Start 01/04/21 at 10:43; Stop 01/04/21 at 10:44; Status DC Cellulose (Surgicel Hemostat 4x8) 1 each STK-MED ONCE .ROUTE ; Start 01/04/21 at 10:47; Stop 01/04/21 at 10:48; Status Cancel Cellulose (Surgicel Hemostat 4x8) 1 each STK-MED ONCE .ROUTE ; Start 01/04/21 at 10:47; Stop 01/04/21 at 10:48; Status Cancel Cellulose (Surgicel Hemostat 4x8) 1 each STK-MED ONCE .ROUTE ; Start 01/04/21 at 10:47; Stop 01/04/21 at 10:48; Status Cancel Sevoflurane (Ultane) 90 ml STK-MED ONCE IH ; Start 01/04/21 at 11:03; Stop 01/04/21 at 11:04; Status DC Enoxaparin Sodium (Lovenox 40mg Syringe) 40 mg Q24H SQ Last administered on 01/11/21at 16:00; Start 01/04/21 at 16:00 Sodium Chloride (Normal Saline Flush) 3 ml QSHIFT PRN IV AFTER MEDS AND BLOOD DRAWS; Start 01/04/21 at 11:30 Ringer's Solution 1,000 ml @ 100 mls/hr Q10H IV Last administered on 01/08/21at 05:42; Start 01/04/21 at 12:00; Stop 01/08/21 at 11:37; Status DC Fentanyl Citrate 30 ml @ 0 mls/hr CONT PRN PRN IV PER PROTOCOL Last administered on 01/10/21at 02:52; Start 01/04/21 at 11:30; Stop 01/11/21 at 15:49; Status DC Naloxone HCl (Narcan) 0.4 mg PRN Q2MIN PRN IV SEE INSTRUCTIONS; Start 01/04/21 at 11:30 Sodium Chloride 1,000 ml @ 25 mls/hr Q24H IV Last administered on 01/11/21at 15:04; Start 01/04/21 at 12:00 Ondansetron HCl (Zofran) 4 mg PRN Q6HRS PRN IVP NAUESA, 1ST CHOICE Last administered on 01/12/21at 05:29; Start 01/04/21 at 11:30 Fentanyl Citrate (Fentanyl 2ml Vial) 100 mcg STK-MED ONCE .ROUTE ; Start 01/04/21 at 11:55; Stop 01/04/21 at 11:55; Status DC Fentanyl Citrate (Fentanyl 2ml Vial) 100 mcg STK-MED ONCE .ROUTE ; Start 01/04/21 at 12:29; Stop 01/04/21 at 12:29; Status DC Hydromorphone HCl (Dilaudid) 2 mg STK-MED ONCE .ROUTE ; Start 01/04/21 at 12:42; Stop 01/04/21 at 12:42; Status DC Ketamine HCl (Ketamine) 50 mg STK-MED ONCE .ROUTE ; Start 01/04/21 at 15:01; Stop 01/04/21 at 15:02; Status DC Sodium Chloride 250 ml @ 250 mls/hr 1X ONCE IV ; Start 01/05/21 at 06:00; Stop 01/05/21 at 05:37; Status DC Saliva Substitute (Biotene Moisturizing Mouth) 2 spray PRN Q15MIN PRN PO DRY MOUTH Last administered on 01/05/21at 17:47; Start 01/05/21 at 10:00 Metoprolol Tartrate (Lopressor Vial) 5 mg PRN Q5MIN PRN IVP TACHYCARDIA; Start 01/05/21 at 14:00 Pantoprazole Sodium (PROTONIX VIAL for IV PUSH) 40 mg 1X ONCE IVP Last administered on 01/06/21at 08:21; Start 01/06/21 at 08:30; Stop 01/06/21 at 08:31; Status DC Metoprolol Tartrate (Lopressor Vial) 2.5 mg Q6HRS IVP Last administered on 01/10/21at 17:36; Start 01/06/21 at 18:00; Stop 01/10/21 at 18:11; Status DC Furosemide (Lasix) 20 mg DAILY IVP Last administered on 01/12/21at 09:04; Start 01/08/21 at 09:00 Furosemide (Lasix) 40 mg 1X ONCE IVP Last administered on 01/07/21at 10:50; Start 01/07/21 at 10:45; Stop 01/07/21 at 10:46; Status DC Amino Acids/ Glycerin/ Electrolytes 1,000 ml @ 80 mls/hr [id number] IV Last administered on 01/12/21at 04:43; Start 01/08/21 at 12:00 Sodium Chloride 500 ml @ 500 mls/hr 1X ONCE IV Last administered on 01/08/21at 12:44; Start 01/08/21 at 11:45; Stop 01/08/21 at 12:44; Status DC Pantoprazole Sodium (PROTONIX VIAL for IV PUSH) 40 mg DAILYAC IVP Last administered on 01/12/21at 08:31; Start 01/12/21 at 01:15 Fentanyl Citrate (Fentanyl 2ml Vial) 25 mcg PRN Q2HR PRN IVP PAIN Last administered on 01/12/21at 05:29; Start 01/12/21 at 01:15 Prochlorperazine Edisylate (Compazine) 10 mg PRN Q6HRS PRN IV NAUSEA/VOMITING Last administered on 01/12/21at 06:37; Start 01/12/21 at 06:00 Barium Sulfate (Varibar Thin Liquid Apple) 148 gm 1X ONCE PO ; Start 01/12/21 at 11:00; Stop 01/12/21 at 11:01; Status DC Active Scripts Active Lisinopril 5 Mg Tablet 5 Mg PO DAILY Senna Plus Tablet (Sennosides/Docusate Sodium) 1 Each Tablet 2 Tab PO QHS 14 Days Furosemide 40 Mg Tablet 40 Mg PO DAILY MDD 1 Reported Sertraline Hcl 50 Mg Tablet 50 Mg PO DAILY Budesonide 0.5 Mg/2 Ml Ampul.neb 1 Vial NEB BID Tudorza Pressair (Aclidinium [place] Line) 400 Mcg Aer.pow.ba 1 Puff IH BID Ipratropium [place] Line 0.2 Mg/1 Ml Solution 1 Vial NEB QID Klor-Con 10 (Potassium Chloride) 10 Meq Tablet.er 1 Tab PO DAILY 30 Days Lyrica (Pregabalin) 75 Mg Capsule 1 Cap PO BID Ipratropium [place] Line 15 Ml [place] 2 Sprays NS BID Metoprolol Succinate ( Xl ) (Metoprolol Succinate) 25 Mg Tab.er.24h 1 Tab PO DAILY 30 Days Pantoprazole Sodium 40 Mg Tablet.dr 1 Tab PO DAILY 30 Days Gabapentin (Gabapentin) 300 Mg Capsule 300 Mg PO DAILYWSUP Aspirin 81 Mg Tab.chew 81 Mg PO DAILY Lovastatin 40 Mg Tablet 1 Tab PO DAILY Vitals/I & O Vital Sign - Last 24 Hours 01/11/21 01/11/21 01/11/21 01/11/21 15:00 15:16 19:19 19:48 Temp 98.8 98.4 98.8 98.4 Pulse 67 91 Resp 19 16 B/P (MAP) 102/56 (71) 127/52 (77) Pulse Ox 93 96 93 O2 Delivery Venturi Mask Nasal Cannula Nasal Cannula Venturi Mask O2 Flow Rate 15.0 15.0 15.0 15.0 01/11/21 01/11/21 01/12/21 01/12/21 22:20 23:41 03:08 07:00 Temp 98.0 97.4 98.0 97.4 Pulse 72 73 70 Resp 16 16 20 B/P (MAP) 110/59 (76) 93/50 (64) 125/65 (85) Pulse Ox 91 90 91 O2 Delivery Venturi Mask Venturi Mask Nasal Cannula Nasal Cannula O2 Flow Rate 15.0 15.0 6.0 6.0 01/12/21 01/12/21 01/12/21 01/12/21 07:02 08:00 11:00 11:26 Temp 95.6 95.6 Pulse 70 Resp 20 B/P (MAP) 111/57 (75) Pulse Ox 93 88 91 O2 Delivery Nasal Cannula Nasal Cannula Nasal Cannula Nasal Cannula O2 Flow Rate 5.5 6.0 8.0 5.0 Intake and Output 01/11/21 01/11/21 01/12/21 14:59 22:59 06:59 Intake Total 0 ml Output Total 1200 ml 500 ml Balance -1200 ml -500 ml Justifications for Admission Other Justification Nutrition Consultation Dietary Evaluation: Recommendations by RD: Dietary education by RD, PPN/TPN Comments: REC continue PPN at this time REC resume cardiac diet when appropriate w/Ensure TID Expected Outcomes/Goals: New goal 01/06: Diet advancement s/p colon surgery- goal ongoing Malnutrition Findings: Food and Nutrition Intake (Sev: <50% est energy req 5days Weight Status: Overweight Fluid Accumulation (Non-Severe: Mild depletion SÁNCHEZ WINTERS MD Jan 12, 2021 11:32
[2021-01-12] MEDS: IV NORMAL SALINE 1000ML BAG 1,000 ML IV SCH (12:00)
--- NOTE | 2021-01-12 12:04 | PDOC ---
[facility] PROGRESS NOTE Date of Service DOS: DATE: 01/12/21 TIME: 12:03 Chief Complaint Chief Complaint Acute Abd pain, fluid overload colon cancer, status post open right colectomy with liver biopsy on 01/04/2021 iron deficiency anemia, obese, BMI 32 weakness, debility depression, insomnia neuropathy History of Present Illness History of Present Illness 01/12/2021 No acute events overnight. Patient saturating well on 93% on 5 L nasal cannula. Patient is also -1.7 L with adequate urine output and gentle IV diuresis. Pen ding speech evaluation. Patient also continues to have hiccups which is not improved with Zofran or Compazine. Will attempt to try ice chips with some honey to improve gastric motility. If refractory will also try IV Thorazine. Per surgery, will advance diet as tolerated with ensures 3 times daily. Patient's chart, labs, images were reviewed and discussed with RN 01/11/2021 No acute events overnight. Patient continues to be on Ventimask at 15 L. Patient continues to be needing IV diuresis. Recommend continue with PT OT today. Patient's chart, labs, images were reviewed and discussed with RN 01/10/2021 No acute events overnight. Patient this morning had desaturation to 90s while on Venturi mask. Chest x-ray is ordered. Patient continues to be on IV diuretics. Pain is controlled and patient is passing flatus. We will continue with PPN. Patient's chart, labs, images were reviewed and discussed with RN 01/09, has small amount of stool output, on full liquid, poor PO intake, cont the PPN, needs rehab, he has some emotion today about nto improving much, I discussed at length that everything right now is going well and just takes time, no new complaint 01/08, change fluid from LR to PPN, cont other, pain OK, he reports stool, RN doesnt think so, cont current, if he stools, we can try liquid diet, try OOB to chair 4 L nasal cannula O2. Afebrile. Sit up in chair. Pain is still intermittent. Even with ice chips he is getting some esophageal spasm and pain. Not passing flatus currently. Feeling well overall. Hb 7.9, CR 1.2. Okay to transfer out of ICU. 01/06: On 15L facemask O2, up from home 4L. He is feeling well, asking to eat and drink. Still using his [employer]PARER. IV protonix today 01/05: Seen in ICU. On facemask O2. 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 His only complaint is dry mouth. 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 Transferred to ICU thereafter. 01/02: Patient seen and examined, sitting up and talkative. He has no new complaints 01/01: Issues swallowing liquids, ordering bedside swallow. He did take a drink and have a coughing fit during our conversation, says this happens frequently 12/31: Patient seen and examined. Discussed surgery date push back 12/30: Discussed CRC prognosis and he wanted a second opinion on the prognosis. Called Dr. Cullen who is willing to complete surgery if patient decides Vitals/I&O Vitals/I&O: Vital Signs Date Time Temp Pulse Resp B/P (MAP) Pulse Ox O2 Delivery O2 Flow Rate FiO2 01/12/21 11:26 91 Nasal Cannula 5.0 01/12/21 11:00 95.6 70 20 111/57 (75) 95.6 I & O 01/11/21 01/11/21 01/12/21 15:00 23:00 07:00 Intake Total 0 ml Output Total 1200 ml 500 ml Balance -1200 ml -500 ml Physical Exam General: Cooperative, No acute distress Heart: Regular rate Lungs: Clear Abdomen: Soft, No tenderness Extremities: No clubbing, No cyanosis, Other (Mild edema) Skin: No rashes, Other (Bruising on arms) Assessment and Plan Assessmemt and Plan Problems Medical Problems: (1) Abdominal pain Status: Acute Comment Review of Relevant I have reviewed the following items jay (where applicable) has been applied. Medications: Current Medications Medications (Trade) Dose Ordered Sig/Minerva Route PRN Reason Start Time Stop Time Status Last Admin Dose Admin Pantoprazole Sodium (PROTONIX VIAL for IV PUSH) 40 mg DAILYAC IVP 01/12/21 01:15 01/12/21 08:31 Fentanyl Citrate (Fentanyl 2ml Vial) 25 mcg PRN Q2HR PRN IVP PAIN 01/12/21 01:15 01/12/21 05:29 Prochlorperazine Edisylate (Compazine) 10 mg PRN Q6HRS PRN IV NAUSEA/VOMITING 3/10/21 06:00 01/12/21 06:37 Justifications for Admission Other Justification LINDA HANSEN MD Jan 12, 2021 12:04
--- NOTE | 2021-01-12 12:26 | PDOC ---
CARDIO Progress Notes Date and Time Date of Service 01/12/2021 Time of Evaluation 1040 Subjective Subjective: No Chest Pain, No shortness of breath, No Palpitations Vitals Vitals Vital Signs Date Time Temp Pulse Resp B/P (MAP) Pulse Ox O2 Delivery O2 Flow Rate FiO2 01/12/21 11:26 91 Nasal Cannula 5.0 01/12/21 11:00 95.6 70 20 111/57 (75) 95.6 Weight Weight [ ] Input and Output Intake and Output Intake and Output 01/12/21 07:00 Intake Total 0 ml Output Total 1700 ml Balance -1700 ml Intake Oral 0 ml Output Urine Total 1700 ml Microbiology Micro Microbiology 12/29/20 Blood Culture - Final, Complete NO GROWTH AFTER 5 DAYS Physical Exam HEENT: Neck Supple W Full Motion Chest: Symmetric LUNGS: Other (diminished bases) Heart: other (Vpaced with underlying AFIB) Abdomen: Other (drsg intact ) Extremities: Other (1+ bilateral LE pitting edema) Neurology: alert, oriented, follow commands Assessment Assessment 1 Mild acute on chronic systolic CHF; appears compensated 2. ICM: Echo 10/24 with LVEF 30-35%. S/p [employer] HELPER-D ([facility] [employer]). Device check 10/24 with normal function. stable lead impedances, adequate batter life at 20%. AFIB burden > 99%. 3. CAD: past CABG and PCI. Most recent PCI/stents 12/2015 as noted above. Clinically stable. 4. Anemia, coagulopathy; s/p transfusion Hgb stable at 8.4 5. Colon CA with obstructing colonic mass; s/p open colon resection. POD#3. 6. Persistent AFIB; v-paced with underlying AFIB, rate controlled 7. Hypertension; controlled 8. Hyperlipidemia; statin 9. GRUPO on CKD; back to baseline 10. COPD with home O2 use 11. Left cephalic vein thrombus: per PCP 12. Odynophagia/dysphagia 13. NSVT: asymptomatic Recommendations 1. Continue secondary prevention measures as able. On lovenox for VTE prophylaxis. Start on ASA when able to take PO for stroke prevention 2. Restart routine IV metoprolol for rate control while NPO. Swallow study pending 3. Not on OAC due to past fall, hemorrhage, and anemia. ASA when able to take PO. OK with low dose lovenox for now. 4. Low dose lasix. BMP and Mg today 5. Supportive care 6. Continue post-op management as per [facility] Justicifation of Admission Dx: Justifications for Admission: Justification of Admission Dx: Yes Respiratory Failure: Severe Resp Distress CAMILLE MÉNDEZ [employer] Jan 12, 2021 12:26
[2021-01-12] MEDS ORDERED: METOPROLOL IV PUSH 5 MG/5 ML VIAL. IVP ONE (12:30)
[2021-01-12 13:27] LABS: CALCIUM 7.6 mg/dL (8.5-10.1); CREATININE 1.1 mg/dL (0.7-1.3); GFR 64.9; MAGNESIUM 2.4 mg/dL (1.8-2.4); POTASSIUM 4.5 mmol/L (3.5-5.1)
[2021-01-12 15:00] VITALS: BP 110/57
[2021-01-12] MEDS: GABAPENTIN 300 MG CAPSULE. PO SCH (15:42)
[2021-01-12] MEDS: ENOXAPARIN 40 MG/0.4 ML SYRINGE. SQ SCH (17:15)
[2021-01-12] MEDS: METOPROLOL IV PUSH 5 MG/5 ML VIAL. IVP SCH (18:16)
[2021-01-12 19:00] VITALS: BP 109/61
[2021-01-12] MEDS: SENNOSIDES/DOCUSATE 8.6/50MG TABLET. PO SCH ×2 (21:00→21:30)
[2021-01-12 23:00] VITALS: BP 116/61
[2021-01-13] MEDS: METOPROLOL IV PUSH 5 MG/5 ML VIAL. IVP SCH ×5 (01:04→23:18)
[2021-01-13 03:15] VITALS: BP 121/69
[2021-01-13] MEDS: AMINO AC 3%/ELECTROLYTE/GLYCER 1,000 ML IV SCH ×2 (06:26→19:47)
[2021-01-13 07:00] VITALS: BP 113/95
[2021-01-13] MEDS: PANTOPRAZOLE 40 MG TABLET.DR. PO SCH (07:30)
[2021-01-13] MEDS: BUDESONIDE 0.5 MG/2 ML NEBU. NEB SCH ×2 (07:40→20:37)
[2021-01-13] MEDS: IPRATRPIUM/ALBUTEROL 0.5/2.5MG 3 ML NEBU. NEB SCH ×4 (07:40→20:37)
[2021-01-13] MEDS: POTASSIUM CHLORIDE 10 MEQ TABLET.ER. PO SCH (08:00)
[2021-01-13] MEDS: PANTOPRAZOLE IV PUSH 40 MG VIAL. IVP SCH (08:02)
[2021-01-13] MEDS: ASPIRIN CHEWABLE 81 MG TABLET. PO SCH (08:15)
[2021-01-13] MEDS: PREGABALIN 75 MG CAPSULE PO SCH ×2 (08:15→19:55)
[2021-01-13] MEDS: ATORVASTATIN CALCIUM 10 MG TABLET. PO SCH (08:15)
[2021-01-13] MEDS: LISINOPRIL 5 MG TABLET. PO SCH (08:16)
[2021-01-13] MEDS: POLYETHYLENE GLYCOL 3350 17 GM PACKET. PO SCH (08:16)
[2021-01-13] MEDS: METOPROLOL SUCC 24HR ER 25 MG TAB.ER.24H. PO SCH (08:16)
[2021-01-13] MEDS: SERTRALINE 50 MG TABLET. PO SCH (08:16)
--- NOTE | 2021-01-13 08:47 | PDOC ---
PULMONARY PROGRESS NOTES DATE: 01/13/21 TIME: 08:47 Subjective Patient slowly improving, he does not think he is improving, not more short of air. Vitals Vital Signs Date Time Temp Pulse Resp B/P (MAP) Pulse Ox O2 Delivery O2 Flow Rate FiO2 01/13/21 07:40 97 Venturi Mask 15.0 01/13/21 07:00 95.2 65 22 113/95 (101) 95.2 ROS: No Nausea, No Chest Pain, No Increase Cough General: Alert, No acute distress Lungs: Clear Cardiovascular: S1, S2 Abdomen: Soft, Non-tender, Other (distended ) Neuro Exam: Alert Extremities: Other (Edema) Skin: Warm Labs Laboratory Tests Test 01/12/21 12:45 Sodium Level 142 mmol/L (136-145) Potassium Level 4.5 mmol/L (3.5-5.1) Chloride Level 107 mmol/L (98-107) Carbon Dioxide Level 28 mmol/L (21-32) Anion Gap 7 (6-14) Blood Urea Nitrogen 33 mg/dL (8-26) Creatinine 1.1 mg/dL (0.7-1.3) Estimated GFR (Cockcroft-Gault) 64.9 Glucose Level 107 mg/dL (70-99) Calcium Level 7.6 mg/dL (8.5-10.1) Magnesium Level 2.4 mg/dL (1.8-2.4) Laboratory Tests Test 01/12/21 12:45 Sodium Level 142 mmol/L (136-145) Potassium Level 4.5 mmol/L (3.5-5.1) Chloride Level 107 mmol/L (98-107) Carbon Dioxide Level 28 mmol/L (21-32) Anion Gap 7 (6-14) Blood Urea Nitrogen 33 mg/dL (8-26) Creatinine 1.1 mg/dL (0.7-1.3) Estimated GFR (Cockcroft-Gault) 64.9 Glucose Level 107 mg/dL (70-99) Calcium Level 7.6 mg/dL (8.5-10.1) Magnesium Level 2.4 mg/dL (1.8-2.4) Medications Active Scripts Medications Dose Route/Sig Max Daily Dose Days Date Category Sertraline Hcl 50 Mg Tablet 50 Mg PO DAILY 12/29/20 Reported Budesonide 0.5 Mg/2 Ml Ampul.neb 1 Vial NEB BID 12/29/20 Reported Tudorza Pressair (Aclidinium [place]) 400 Mcg Aer.pow.ba 1 Puff IH BID 12/29/20 Reported Ipratropium [place] 0.2 Mg/1 Ml Solution 1 Vial NEB QID 12/29/20 Reported Klor-Con 10 (Potassium Chloride) 10 Meq Tablet.er 1 Tab PO DAILY 30 12/29/20 Reported Lyrica (Pregabalin) 75 Mg Capsule 1 Cap PO BID 12/29/20 Reported Lisinopril 5 Mg Tablet 5 Mg PO DAILY 10/17/20 Rx Senna Plus Tablet (Sennosides/Docusate Sodium) 1 Each Tablet 2 Tab PO QHS 14 10/01/20 Rx Ipratropium [place] 15 Ml [place] 2 Sprays NS BID 07/08/20 Reported Metoprolol Succinate ( Xl ) (Metoprolol Succinate) 25 Mg Tab.er.24h 1 Tab PO DAILY 30 07/08/20 Reported Pantoprazole Sodium 40 Mg Tablet.dr 1 Tab PO DAILY 30 07/08/20 Reported Gabapentin (Gabapentin) 300 Mg Capsule 300 Mg PO DAILYWSUP 06/30/19 Reported Aspirin 81 Mg Tab.chew 81 Mg PO DAILY 06/30/19 Reported Furosemide 40 Mg Tablet 40 Mg PO DAILY MDD 1 10/19/18 Rx Lovastatin 40 Mg Tablet 1 Tab PO DAILY 12/14/14 Reported Impression . IMPRESSION: 1. Chronic respiratory failure, multifactorial secondary to severe chronic obstructive pulmonary disease, coronary artery disease, previous coronary artery bypass grafting and deconditioning. 2. Cardiomyopathy, status post coronary artery bypass grafting. 3. Chronic atrial fibrillation. 4. Recent diagnosis of colon cancer. S/P open right colon resection, liver biopsy, see path report 5. Ascites 6. Cephalic vein thrombosis 7. Dysphagia Diagnosis: A. Distal ileum, cecum, ascending colon, and proximal transverse colon with attached mesocolon and portion of omentum, extended right colon resection: - Invasive colorectal adenocarcinoma, moderately to poorly differentiated, forming a nearly circumferential, centrally ulcerated tumor mass measuring up to 5.5 cm in greatest dimension, with tumor invasion through muscularis propria into subserosa/mesocolon. - Focal lymphovascular tumor invasion identified. - Fourteen mesocolic lymph nodes negative for tumor (0/14). - Proximal (distal ileum), distal (transverse colon), and mesocolic margins of resection negative for tumor. - Omentum negative for tumor. - Adiposity of ileocecal valve. - Fibrofatty obliteration of distal appendiceal lumen. - Melanosis coli. . B. Liver biopsy: - Metastatic adenocarcinoma, consistent with colorectal origin. Plan . Updated 01/13 Discussed with speech, possible video dysphagia tomorrow Up to a chair PT OT Oxygen supplementation 01/12 To possibly undergo speech evaluation with video dysphagia study today Patient being evaluated for's new Discussed with surgery Continue oxygen supplementation Up to chair Avoid oversedation Aggressive pulmonary hygiene DVT GI prophylaxis RADAMES MORALES MD Jan 13, 2021 08:47
[2021-01-13] MEDS: BISACODYL 10 MG SUPP.RECT. PR SCH (09:02)
[2021-01-13] MEDS: FUROSEMIDE 20 MG/2 ML VIAL. IVP SCH (09:04)
[2021-01-13] MEDS: IPRATROPIUM BROMIDE 0.06% NASAL SPRAY 15ML BOTTLE. NS SCH ×2 (09:04→20:36)
--- NOTE | 2021-01-13 10:53 | PDOC ---
[employer] [facility] PROGRESS NOTE Date of Service DOS: DATE: 01/13/21 TIME: 10:48 Chief Complaint Chief Complaint Assessment/Plan Acute Abd pain, fluid overload colon cancer, status post open right colectomy with liver biopsy on 01/04/2021 iron deficiency anemia, obese, BMI 32 weakness, debility depression, insomnia neuropathy Mild acute on chronic systolic CHF; appears compensated Echo 10/24 with LVEF 30-35%. 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 Anemia of chronic disease Persistent AFIB; v-paced with underlying AFIB, rate controlled Hypertension; controlled Hyperlipidemia Acute on chronic kidney injury, currently improved and stable COPD with home O2 use of about 4 L nasal cannula Left cephalic vein thrombus Odynophagia/dysphagia Pending video swallow Lovenox for DVT prophylaxis Protonix GI prophylaxis ADA diet Full code Discussed with RN and SW Disposition [] Surrogate decision maker is the [] History of Present Illness History of Present Illness 01/13/2021 No acute events overnight. Patient needed to be put on Ventimask because he would desat down to the low to the low 80s. Currently saturating 93% on 15 L Ventimask. Video swallow unable to done while the mask. Will attempt to titrate down on O2 and try to keep on high flow nasal cannula. Continue of IV diuresis per cardiology. Patient's chart, labs, images were reviewed and discussed with RN 01/12/2021 No acute events overnight. Patient saturating well on 93% on 5 L nasal cannula. Patient is also -1.7 L with adequate urine output and gentle IV diuresis. Pending speech evaluation. Patient also continues to have hiccups which is not improved with Zofran or Compazine. Will attempt to try ice chips with some honey to improve gastric motility. If refractory will also try IV Thorazine. Per surgery, will advance diet as tolerated with ensures 3 times daily. Patient's chart, labs, images were reviewed and discussed with RN 01/11/2021 No acute events overnight. Patient continues to be on Ventimask at 15 L. Patient continues to be needing IV diuresis. Recommend continue with PT OT today. Patient's chart, labs, images were reviewed and discussed with RN 01/10/2021 No acute events overnight. Patient this morning had desaturation to 90s while on Venturi mask. Chest x-ray is ordered. Patient continues to be on IV diu retics. Pain is controlled and patient is passing flatus. We will continue with PPN. Patient's chart, labs, images were reviewed and discussed with RN 01/09, has small amount of stool output, on full liquid, poor PO intake, cont the PPN, needs rehab, he has some emotion today about nto improving much, I discussed at length that everything right now is going well and just takes time, no new complaint 01/08, change fluid from LR to PPN, cont other, pain OK, he reports stool, RN doesnt think so, cont current, if he stools, we can try liquid diet, try OOB to chair 4 L nasal cannula O2. Afebrile. Sit up in chair. Pain is still intermittent. Even with ice chips he is getting some esophageal spasm and pain. Not passing flatus currently. Feeling well overall. Hb 7.9, CR 1.2. Okay to transfer out of ICU. 01/06: On 15L facemask O2, up from home 4L. He is feeling well, asking to eat and drink. Still using his MATERIALS ENGINEER. IV protonix today 01/05: Seen in ICU. On facemask O2. He actually has bowel sounds is reasonably controlled abdominal pain with MATERIALS ENGINEER. His only complaint is dry mouth. 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 Transferred to ICU thereafter. 01/02: Patient seen and examined, sitting up and talkative. He has no new complaints 01/01: Issues swallowing liquids, ordering bedside swallow. He did take a drink and have a coughing fit during our conversation, says this happens frequently 12/31: Patient seen and examined. Discussed surgery date push back 12/30: Discussed CRC prognosis and he wanted a second opinion on the prognosis. Called Dr. Cullen who is willing to complete surgery if patient decides Vitals/I&O Vitals/I&O: Vital Signs Date Time Temp Pulse Resp B/P (MAP) Pulse Ox O2 Delivery O2 Flow Rate FiO2 01/13/21 07:40 97 Venturi Mask 15.0 01/13/21 07:00 95.2 65 22 113/95 (101) 95.2 I & O 01/12/21 01/12/21 01/13/21 15:00 23:00 07:00 Intake Total 0 ml Output Total 400 ml Balance 0 ml -400 ml Physical Exam General: Alert, Oriented X3, Cooperative, No acute distress Heart: Regular rate Lungs: Clear Abdomen: Soft, No tenderness Extremities: No clubbing, No cyanosis, Other (Mild edema) Skin: No rashes, Other (Bruising on arms) Labs Labs: Laboratory Tests Test 01/12/21 12:45 Sodium Level 142 mmol/L (136-145) Potassium Level 4.5 mmol/L (3.5-5.1) Chloride Level 107 mmol/L (98-107) Carbon Dioxide Level 28 mmol/L (21-32) Anion Gap 7 (6-14) Blood Urea Nitrogen 33 mg/dL (8-26) Creatinine 1.1 mg/dL (0.7-1.3) Estimated GFR (Cockcroft-Gault) 64.9 Glucose Level 107 mg/dL (70-99) Calcium Level 7.6 mg/dL (8.5-10.1) Magnesium Level 2.4 mg/dL (1.8-2.4) Assessment and Plan Assessmemt and Plan Problems Medical Problems: (1) Abdominal pain Status: Acute Comment Review of Relevant I have reviewed the following items jay (where applicable) has been applied. Medications: Current Medications Medications (Trade) Dose Ordered Sig/Minerva Route PRN Reason Start Time Stop Time Status Last Admin Dose Admin Metoprolol Tartrate (Lopressor Vial) 5 mg Q6HRS IVP 01/12/21 18:00 01/13/21 06:27 Metoprolol Tartrate (Lopressor Vial) 5 mg 1X ONCE IVP 01/12/21 12:30 01/12/21 12:31 DC 01/12/21 13:47 Justifications for Admission Other Justification LINDA HANSEN MD Jan 13, 2021 10:53
[2021-01-13 11:00] VITALS: BP 119/69
[2021-01-13] MEDS: IV NORMAL SALINE 1000ML BAG 1,000 ML IV SCH (12:00)
--- NOTE | 2021-01-13 13:39 | PDOC ---
SURGICAL PROGRESS NOTE DATE: 01/13/21 TIME: 13:39 Subjective awaiting speech eval so can eat no abdominal pain Vital Signs Vital Signs Date Time Temp Pulse Resp B/P (MAP) Pulse Ox O2 Delivery O2 Flow Rate FiO2 01/13/21 12:28 66 119/69 01/13/21 11:39 97 Nasal Cannula 6.0 01/13/21 11:00 96.2 20 96.2 I&O Intake and Output 01/13/21 07:00 Intake Total 0 ml Output Total 400 ml Balance -400 ml Intake Oral 0 ml Output Urine Total 200 ml Drainage Total 200 ml General: Alert, Oriented X3, Cooperative Abdomen: Soft Labs Laboratory Tests Test 01/12/21 12:45 Sodium Level 142 mmol/L (136-145) Potassium Level 4.5 mmol/L (3.5-5.1) Chloride Level 107 mmol/L (98-107) Carbon Dioxide Level 28 mmol/L (21-32) Anion Gap 7 (6-14) Blood Urea Nitrogen 33 mg/dL (8-26) Creatinine 1.1 mg/dL (0.7-1.3) Estimated GFR (Cockcroft-Gault) 64.9 Glucose Level 107 mg/dL (70-99) Calcium Level 7.6 mg/dL (8.5-10.1) Magnesium Level 2.4 mg/dL (1.8-2.4) Problem List Problems Medical Problems: (1) Abdominal pain Status: Acute Assessment/Plan speech eval ongoing Justicifation of Admission Dx: Justifications for Admission: Justification of Admission Dx: Yes Respiratory Failure: Severe Resp Distress EMEKA COLON APRN Jan 13, 2021 13:39
--- NOTE | 2021-01-13 14:19 | NUR ---
SW following this BPCI patient today. SW reviewed chart and coordinated care with RN. Pt down to 6l 02 from 15l Ventimask today, 01/13. Referral to [facility] is pending. Pt requires a negative COVID result within 72 hour of admission to [facility] per notes from senior buyer planner. SW requested COVID swab today, 01/13 as pt's baseline level for 02 is 4l at home.
[2021-01-13 15:00] VITALS: BP 116/67
[2021-01-13] MEDS: GABAPENTIN 300 MG CAPSULE. PO SCH (15:51)
[2021-01-13] MEDS: ENOXAPARIN 40 MG/0.4 ML SYRINGE. SQ SCH (15:56)
[2021-01-13 19:00] VITALS: BP 102/56
[2021-01-13] MEDS: SENNOSIDES/DOCUSATE 8.6/50MG TABLET. PO SCH (19:55)
[2021-01-13 23:00] VITALS: BP 108/54
[2021-01-14 03:00] VITALS: BP 105/58
[2021-01-14] MEDS: METOPROLOL IV PUSH 5 MG/5 ML VIAL. IVP SCH ×3 (05:58→16:58)
[2021-01-14 07:00] VITALS: BP 110/58
[2021-01-14] MEDS: PANTOPRAZOLE 40 MG TABLET.DR. PO SCH (07:30)
[2021-01-14] MEDS: PANTOPRAZOLE IV PUSH 40 MG VIAL. IVP SCH (07:35)
[2021-01-14] MEDS: BUDESONIDE 0.5 MG/2 ML NEBU. NEB SCH ×2 (07:39→20:06)
[2021-01-14] MEDS: IPRATRPIUM/ALBUTEROL 0.5/2.5MG 3 ML NEBU. NEB SCH ×4 (07:39→20:06)
[2021-01-14] MEDS: POTASSIUM CHLORIDE 10 MEQ TABLET.ER. PO SCH (08:00)
[2021-01-14] MEDS: ASPIRIN CHEWABLE 81 MG TABLET. PO SCH (09:00)
[2021-01-14] MEDS: SERTRALINE 50 MG TABLET. PO SCH (09:00)
[2021-01-14] MEDS: POLYETHYLENE GLYCOL 3350 17 GM PACKET. PO SCH (09:00)
[2021-01-14] MEDS: BISACODYL 10 MG SUPP.RECT. PR SCH (09:00)
[2021-01-14] MEDS: PREGABALIN 75 MG CAPSULE PO SCH ×2 (09:00→20:50)
[2021-01-14] MEDS: ATORVASTATIN CALCIUM 10 MG TABLET. PO SCH (09:00)
[2021-01-14 09:41] LABS: BASO % 1 % (0-3); EOS # 0.1 x10^3/uL (0.0-0.7); EOS % 2 % (0-3); HEMATOCRIT 30.3 % (39.0-53.0); HEMOGLOBIN 8.9 g/dL (13.0-17.5); LYMPH # 0.4 x10^3/uL (1.0-4.8); LYMPH % 6 % (24-48); MEAN CORPUSCULAR HEMOGLOBIN 25 pg (25-35); MEAN CORPUSCULAR HGB CONC 30 g/dL (31-37); MEAN CORPUSCULAR VOLUME 83 fL (79-100); MONO # 0.5 x10^3/uL (0.0-1.1); MONO % 6 % (0-9); NEUT # 6.3 x10^3/uL (1.8-7.7); NEUT % 86 % (31-73); PLATELET COUNT 158 x10^3/uL (140-400); RED BLOOD COUNT 3.64 x10^6/uL (4.30-5.70); RED CELL DISTRIBUTION WIDTH 26.1 % (11.5-14.5); WHITE BLOOD COUNT 7.4 x10^3/uL (4.0-11.0)
--- NOTE | 2021-01-14 09:47 | PDOC ---
PULMONARY PROGRESS NOTES DATE: 01/14/21 TIME: 09:47 Subjective Patient working with PT, sitting up at the edge of the bed, sat in the chair earlier today. Vitals Vital Signs Date Time Temp Pulse Resp B/P (MAP) Pulse Ox O2 Delivery O2 Flow Rate FiO2 01/14/21 07:40 89 Nasal Cannula 6.0 01/14/21 07:00 97.2 64 24 110/58 (75) 97.2 ROS: No Nausea, No Chest Pain, No Increase Cough General: Alert, No acute distress Lungs: Clear Cardiovascular: S1, S2 Abdomen: Soft, Non-tender, Other (distended ) Neuro Exam: Alert Extremities: Other (Edema) Skin: Warm Labs Laboratory Tests Test 01/12/21 12:45 Sodium Level 142 mmol/L (136-145) Potassium Level 4.5 mmol/L (3.5-5.1) Chloride Level 107 mmol/L (98-107) Carbon Dioxide Level 28 mmol/L (21-32) Anion Gap 7 (6-14) Blood Urea Nitrogen 33 mg/dL (8-26) Creatinine 1.1 mg/dL (0.7-1.3) Estimated GFR (Cockcroft-Gault) 64.9 Glucose Level 107 mg/dL (70-99) Calcium Level 7.6 mg/dL (8.5-10.1) Magnesium Level 2.4 mg/dL (1.8-2.4) Medications Active Scripts Medications Dose Route/Sig Max Daily Dose Days Date Category Sertraline Hcl 50 Mg Tablet 50 Mg PO DAILY 12/29/20 Reported Budesonide 0.5 Mg/2 Ml Ampul.neb 1 Vial NEB BID 12/29/20 Reported Tudorza Pressair (Aclidinium [place]) 400 Mcg Aer.pow.ba 1 Puff IH BID 12/29/20 Reported Ipratropium [place] 0.2 Mg/1 Ml Solution 1 Vial NEB QID 12/29/20 Reported Klor-Con 10 (Potassium Chloride) 10 Meq Tablet.er 1 Tab PO DAILY 30 12/29/20 Reported Lyrica (Pregabalin) 75 Mg Capsule 1 Cap PO BID 12/29/20 Reported Lisinopril 5 Mg Tablet 5 Mg PO DAILY 10/17/20 Rx Senna Plus Tablet (Sennosides/Docusate Sodium) 1 Each Tablet 2 Tab PO QHS 14 10/01/20 Rx Ipratropium [place] 15 Ml [place] 2 Sprays NS BID 07/08/20 Reported Metoprolol Succinate ( Xl ) (Metoprolol Succinate) 25 Mg Tab.er.24h 1 Tab PO DAILY 30 07/08/20 Reported Pantoprazole Sodium 40 Mg Tablet.dr 1 Tab PO DAILY 30 07/08/20 Reported Gabapentin (Gabapentin) 300 Mg Capsule 300 Mg PO DAILYWSUP 06/30/19 Reported Aspirin 81 Mg Tab.chew 81 Mg PO DAILY 06/30/19 Reported Furosemide 40 Mg Tablet 40 Mg PO DAILY MDD 1 10/19/18 Rx Lovastatin 40 Mg Tablet 1 Tab PO DAILY 12/14/14 Reported Impression . IMPRESSION: 1. Chronic respiratory failure, multifactorial secondary to severe chronic obstructive pulmonary disease, coronary artery disease, previous coronary artery bypass grafting and deconditioning. 2. Cardiomyopathy, status post coronary artery bypass grafting. 3. Chronic atrial fibrillation. 4. Recent diagnosis of colon cancer. S/P open right colon resection, liver biopsy, see path report 5. Ascites 6. Cephalic vein thrombosis 7. Dysphagia Diagnosis: A. Distal ileum, cecum, ascending colon, and proximal transverse colon with attached mesocolon and portion of omentum, extended right colon resection: - Invasive colorectal adenocarcinoma, moderately to poorly differentiated, forming a nearly circumferential, centrally ulcerated tumor mass measuring up to 5.5 cm in greatest dimension, with tumor invasion through muscularis propria into subserosa/mesocolon. - Focal lymphovascular tumor invasion identified. - Fourteen mesocolic lymph nodes negative for tumor (0/14). - Proximal (distal ileum), distal (transverse colon), and mesocolic margins of resection negative for tumor. - Omentum negative for tumor. - Adiposity of ileocecal valve. - Fibrofatty obliteration of distal appendiceal lumen. - Melanosis coli. . B. Liver biopsy: - Metastatic adenocarcinoma, consistent with colorectal origin. Plan . Updated 01/14 Video dysphagia,IMPRESSION: Silent aspiration which resolves with a chin tuck maneuver. Please refer to the separate report by the speech pathologist for clinical recommendations. Work-up PT and OT Up to chair Diet per speech Updated 01/13 Discussed with speech, possible video dysphagia tomorrow Up to a chair PT OT Oxygen supplementation 01/12 To possibly undergo speech evaluation with video dysphagia study today Patient being evaluated for's new Discussed with surgery Continue oxygen supplementation Up to chair Avoid oversedation Aggressive pulmonary hygiene DVT GI prophylaxis RADAMES MORALES MD Jan 14, 2021 09:47
[2021-01-14 09:48] LABS: CALCIUM 7.6 mg/dL (8.5-10.1); CREATININE 1.1 mg/dL (0.7-1.3); GFR 64.9; MAGNESIUM 2.6 mg/dL (1.8-2.4); POTASSIUM 4.8 mmol/L (3.5-5.1)
[2021-01-14] MEDS ORDERED: BARIUM SULFATE 40% (APPLE) 148 GM PWD. PO ONE (10:00)
[2021-01-14] MEDS: AMINO AC 3%/ELECTROLYTE/GLYCER 1,000 ML IV SCH ×2 (10:11→20:48)
[2021-01-14] MEDS: FUROSEMIDE 20 MG/2 ML VIAL. IVP SCH (10:17)
[2021-01-14] MEDS: IPRATROPIUM BROMIDE 0.06% NASAL SPRAY 15ML BOTTLE. NS SCH ×2 (10:17→20:48)
[2021-01-14 10:53] LABS: BILIRUBIN,URINE SMALL (NEG); CLARITY,URINE CLEAR; COLOR,URINE AMBER; NITRITE,URINE NEGATIVE (NEG); PROTEIN,URINE 30 mg/dL (NEG-TRACE)
[2021-01-14 11:00] VITALS: BP 114/58
[2021-01-14 11:12] LABS: BACTERIA,URINE FEW /HPF (0-FEW); RBC,URINE OCC /HPF (0-2); WBC,URINE >40 /HPF (0-4)
[2021-01-14 11:14] LABS: YEAST,URINE PRESENT /HPF
[2021-01-14] MEDS: IV NORMAL SALINE 1000ML BAG 1,000 ML IV SCH (11:32)
--- NOTE | 2021-01-14 11:42 | RAD ---
EXAM: Video swallow evaluation. HISTORY: Dysphagia. TECHNIQUE: Fluoroscopic imaging was performed with a speech pathologist during the oral demonstration of barium contrast of varying consistencies. A single spot image was obtained. The total fluoroscopy time was 3.3 minutes COMPARISON: None. FINDINGS: There is repeated silent aspiration of thin and nectar consistencies following swallowing a ttempts. There is resolved with the chin to maneuver. No aspiration or penetration is seen with puddi ng and solid consistencies. There is poor oral bolus formation. IMPRESSION: Silent aspiration which resolves with a chin tuck maneuver. Please refer to the separate report by the speech pathologist for clinical recommendations. Electronically signed by: Yaima Meza MD (01/14/2021 11:40 AM) [id number]
[2021-01-14] MEDS: LISINOPRIL 5 MG TABLET. PO SCH (12:01)
[2021-01-14] MEDS: METOPROLOL SUCC 24HR ER 25 MG TAB.ER.24H. PO SCH (12:01)
--- NOTE | 2021-01-14 13:06 | PDOC ---
SURGICAL PROGRESS NOTE DATE: 01/14/21 TIME: 13:05 Subjective started diet, clears currently + flatus no abdominal pain Vital Signs Vital Signs Date Time Temp Pulse Resp B/P (MAP) Pulse Ox O2 Delivery O2 Flow Rate FiO2 01/14/21 12:01 70 114/58 01/14/21 11:00 96.6 30 90 Nasal Cannula 15.0 96.6 I&O Intake and Output 01/14/21 07:00 Intake Total 1000 ml Output Total 3700 ml Balance -2700 ml Intake Oral 0 ml IV Total 1000 ml Output Urine Total 3700 ml # Bowel Movements 1 General: Alert, Oriented X3, Cooperative Abdomen: Soft, Other (ND, aman in place) Labs Laboratory Tests Test 01/14/21 09:20 01/14/21 10:38 White Blood Count 7.4 x10^3/uL (4.0-11.0) Red Blood Count 3.64 x10^6/uL (4.30-5.70) Hemoglobin 8.9 g/dL (13.0-17.5) Hematocrit 30.3 % (39.0-53.0) Mean Corpuscular Volume 83 fL (79-100) Mean Corpuscular Hemoglobin 25 pg (25-35) Mean Corpuscular Hemoglobin Concent 30 g/dL (31-37) Red Cell Distribution Width 26.1 % (11.5-14.5) Platelet Count 158 x10^3/uL (140-400) Neutrophils (%) (Auto) 86 % (31-73) Lymphocytes (%) (Auto) 6 % (24-48) Monocytes (%) (Auto) 6 % (0-9) Eosinophils (%) (Auto) 2 % (0-3) Basophils (%) (Auto) 1 % (0-3) Neutrophils # (Auto) 6.3 x10^3/uL (1.8-7.7) Lymphocytes # (Auto) 0.4 x10^3/uL (1.0-4.8) Monocytes # (Auto) 0.5 x10^3/uL (0.0-1.1) Eosinophils # (Auto) 0.1 x10^3/uL (0.0-0.7) Basophils # (Auto) 0.0 x10^3/uL (0.0-0.2) Sodium Level 140 mmol/L (136-145) Potassium Level 4.8 mmol/L (3.5-5.1) Chloride Level 105 mmol/L (98-107) Carbon Dioxide Level 26 mmol/L (21-32) Anion Gap 9 (6-14) Blood Urea Nitrogen 32 mg/dL (8-26) Creatinine 1.1 mg/dL (0.7-1.3) Estimated GFR (Cockcroft-Gault) 64.9 Glucose Level 106 mg/dL (70-99) Calcium Level 7.6 mg/dL (8.5-10.1) Magnesium Level 2.6 mg/dL (1.8-2.4) Urine Collection Type Unknown Urine Color [place] Urine Clarity Clear Urine pH 6.0 (<5.0-8.0) Urine Specific [place] 1.015 (1.000-1.030) Urine Protein 30 mg/dL (NEG-TRACE) Urine Glucose (UA) Negative mg/dL (NEG) Urine Ketones (Stick) Negative mg/dL (NEG) Urine Blood Moderate (NEG) Urine Nitrite Negative (NEG) Urine Bilirubin Small (NEG) Urine Urobilinogen Dipstick 1.0 mg/dL (0.2 mg/dL) Urine Leukocyte Esterase Moderate (NEG) Urine RBC Occ /HPF (0-2) Urine WBC >40 /HPF (0-4) Urine Squamous Epithelial Cells Many /LPF Urine Bacteria Few /HPF (0-FEW) Urine Mucus Marked /LPF Urine Yeast Present /HPF Laboratory Tests Test 01/14/21 09:20 01/14/21 10:38 White Blood Count 7.4 x10^3/uL (4.0-11.0) Red Blood Count 3.64 x10^6/uL (4.30-5.70) Hemoglobin 8.9 g/dL (13.0-17.5) Hematocrit 30.3 % (39.0-53.0) Mean Corpuscular Volume 83 fL (79-100) Mean Corpuscular Hemoglobin 25 pg (25-35) Mean Corpuscular Hemoglobin Concent 30 g/dL (31-37) Red Cell Distribution Width 26.1 % (11.5-14.5) Platelet Count 158 x10^3/uL (140-400) Neutrophils (%) (Auto) 86 % (31-73) Lymphocytes (%) (Auto) 6 % (24-48) Monocytes (%) (Auto) 6 % (0-9) Eosinophils (%) (Auto) 2 % (0-3) Basophils (%) (Auto) 1 % (0-3) Neutrophils # (Auto) 6.3 x10^3/uL (1.8-7.7) Lymphocytes # (Auto) 0.4 x10^3/uL (1.0-4.8) Monocytes # (Auto) 0.5 x10^3/uL (0.0-1.1) Eosinophils # (Auto) 0.1 x10^3/uL (0.0-0.7) Basophils # (Auto) 0.0 x10^3/uL (0.0-0.2) Sodium Level 140 mmol/L (136-145) Potassium Level 4.8 mmol/L (3.5-5.1) Chloride Level 105 mmol/L (98-107) Carbon Dioxide Level 26 mmol/L (21-32) Anion Gap 9 (6-14) Blood Urea Nitrogen 32 mg/dL (8-26) Creatinine 1.1 mg/dL (0.7-1.3) Estimated GFR (Cockcroft-Gault) 64.9 Glucose Level 106 mg/dL (70-99) Calcium Level 7.6 mg/dL (8.5-10.1) Magnesium Level 2.6 mg/dL (1.8-2.4) Urine Collection Type Unknown Urine Color [place] Urine Clarity Clear Urine pH 6.0 (<5.0-8.0) Urine Specific [place] 1.015 (1.000-1.030) Urine Protein 30 mg/dL (NEG-TRACE) Urine Glucose (UA) Negative mg/dL (NEG) Urine Ketones (Stick) Negative mg/dL (NEG) Urine Blood Moderate (NEG) Urine Nitrite Negative (NEG) Urine Bilirubin Small (NEG) Urine Urobilinogen Dipstick 1.0 mg/dL (0.2 mg/dL) Urine Leukocyte Esterase Moderate (NEG) Urine RBC Occ /HPF (0-2) Urine WBC >40 /HPF (0-4) Urine Squamous Epithelial Cells Many /LPF Urine Bacteria Few /HPF (0-FEW) Urine Mucus Marked /LPF Urine Yeast Present /HPF Problem List Problems Medical Problems: (1) Abdominal pain Status: Acute Assessment/Plan remove drain, remove moser can advance diet as tolerated Justicifation of Admission Dx: Justifications for Admission: Justification of Admission Dx: Yes Respiratory Failure: Severe Resp Distress EMEKA COLON UROLOGIC NURSE Jan 14, 2021 13:06
--- NOTE | 2021-01-14 13:54 | PDOC ---
[employer] PROGRESS NOTE Date of Service DOS: DATE: 01/14/21 TIME: 13:52 Chief Complaint Chief Complaint Assessment/Plan Acute Abd pain, fluid overload colon cancer, status post open right colectomy with liver biopsy on 01/04/2021 iron deficiency anemia, obese, BMI 32 weakness, debility depression, insomnia neuropathy Mild acute on chronic systolic CHF; appears compensated Echo 10/24 with LVEF 30-35%. 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 Anemia of chronic disease Persistent AFIB; v-paced with underlying AFIB, rate controlled Hypertension; controlled Hyperlipidemia Acute on chronic kidney injury, currently improved and stable COPD with home O2 use of about 4 L nasal cannula Left cephalic vein thrombus Odynophagia/dysphagia Pending video swallow Lovenox for DVT prophylaxis Protonix GI prophylaxis ADA diet Full code Discussed with RN and SW Disposition advancing diet as tolerated Surrogate decision maker is the History of Present Illness History of Present Illness 01/14/2021 No acute events overnight. Patient saturation is 89% on 6 L nasal cannula and tolerating. No acute dyspneic episodes. Patient underwent video swallow and was able to tolerate thin liquids with chin tuck. Will attempt clear liquid diet today. Patient's chart, labs, images were reviewed and discussed with RN 01/13/2021 No acute events overnight. Patient needed to be put on Ventimask because he would desat down to the low to the low 80s. Currently saturating 93% on 15 L Ventimask. Video swallow unable to done while the mask. Will attempt to titrate down on O2 and try to keep on high flow nasal cannula. Continue of IV diuresis per cardiology. Patient's chart, labs, images were reviewed and discussed with RN 01/12/2021 No acute events overnight. Patient saturating well on 93% on 5 L nasal cannula. Patient is also -1.7 L with adequate urine output and gentle IV diuresis. Pending speech evaluation. Patient also continues to have hiccups which is not improved with Zofran or Compazine. Will attempt to try ice chips with some honey to improve gastric motility. If refractory will also try IV Thorazine. Per surgery, will advance diet as tolerated with ensures 3 times daily. Patient's chart, labs, images were reviewed and discussed with RN 01/11/2021 No acute events overnight. Patient continues to be on Ventimask at 15 L. Patient continues to be needing IV diuresis. Recommend continue with PT OT today. Patient's chart, labs, images were reviewed and discussed with RN 01/10/2021 No acute events overnight. Patient this morning had desaturation to 90s while on Venturi mask. Chest x-ray is ordered. Patient continues to be on IV diuretics. Pain is controlled and patient is passing flatus. We will continue with PPN. Patient's chart, labs, images were reviewed and discussed with RN 01/09, has small amount of stool output, on full liquid, poor PO intake, cont the PPN, needs rehab, he has some emotion today about nto improving much, I discussed at length that everything right now is going well and just takes time, no new complaint 01/08, change fluid from LR to PPN, cont other, pain OK, he reports stool, RN doesnt think so, cont current, if he stools, we can try liquid diet, try OOB to chair 4 L nasal cannula O2. Afebrile. Sit up in chair. Pain is still intermittent. Even with ice chips he is getting some esophageal spasm and pain. Not passing flatus currently. Feeling well overall. Hb 7.9, CR 1.2. Okay to transfer out of ICU. 01/06: On 15L facemask O2, up from home 4L. He is feeling well, asking to eat and drink. Still using his LEAD SOFTWARE ARCHITECT. IV protonix today 01/05: Seen in ICU. On facemask O2. He actually has bowel sounds is reasonably controlled abdominal pain with LEAD SOFTWARE ARCHITECT. His only complaint is dry mouth. 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 Transferred to ICU thereafter. 01/02: Patient seen and examined, sitting up and talkative. He has no new complaints 01/01: Issues swallowing liquids, ordering bedside swallow. He did take a drink and have a coughing fit during our conversation, says this happens frequently 12/31: Patient seen and examined. Discussed surgery date push back 12/30: Discussed CRC prognosis and he wanted a second opinion on the prognosis. Called Dr. Cullen who is willing to complete surgery if patient decides Vitals/I&O Vitals/I&O: Vital Signs Date Time Temp Pulse Resp B/P (MAP) Pulse Ox O2 Delivery O2 Flow Rate FiO2 01/14/21 12:01 70 114/58 01/14/21 11:00 96.6 30 90 Nasal Cannula 15.0 96.6 I & O 01/13/21 01/13/21 01/14/21 15:00 23:00 07:00 Intake Total 1000 ml 0 ml Output Total 1000 ml 2350 ml 350 ml Balance -1000 ml -1350 ml -350 ml Physical Exam General: Alert, Oriented X3, Cooperative Heart: Regular rate Lungs: Clear Abdomen: Soft, Other (ND, aman in place) Extremities: No clubbing, No cyanosis, Other (Mild edema) Skin: No rashes, Other (Bruising on arms) Labs Labs: Laboratory Tests Test 01/14/21 09:20 01/14/21 10:38 White Blood Count 7.4 x10^3/uL (4.0-11.0) Red Blood Count 3.64 x10^6/uL (4.30-5.70) Hemoglobin 8.9 g/dL (13.0-17.5) Hematocrit 30.3 % (39.0-53.0) Mean Corpuscular Volume 83 fL (79-100) Mean Corpuscular Hemoglobin 25 pg (25-35) Mean Corpuscular Hemoglobin Concent 30 g/dL (31-37) Red Cell Distribution Width 26.1 % (11.5-14.5) Platelet Count 158 x10^3/uL (140-400) Neutrophils (%) (Auto) 86 % (31-73) Lymphocytes (%) (Auto) 6 % (24-48) Monocytes (%) (Auto) 6 % (0-9) Eosinophils (%) (Auto) 2 % (0-3) Basophils (%) (Auto) 1 % (0-3) Neutrophils # (Auto) 6.3 x10^3/uL (1.8-7.7) Lymphocytes # (Auto) 0.4 x10^3/uL (1.0-4.8) Monocytes # (Auto) 0.5 x10^3/uL (0.0-1.1) Eosinophils # (Auto) 0.1 x10^3/uL (0.0-0.7) Basophils # (Auto) 0.0 x10^3/uL (0.0-0.2) Sodium Level 140 mmol/L (136-145) Potassium Level 4.8 mmol/L (3.5-5.1) Chloride Level 105 mmol/L (98-107) Carbon Dioxide Level 26 mmol/L (21-32) Anion Gap 9 (6-14) Blood Urea Nitrogen 32 mg/dL (8-26) Creatinine 1.1 mg/dL (0.7-1.3) Estimated GFR (Cockcroft-Gault) 64.9 Glucose Level 106 mg/dL (70-99) Calcium Level 7.6 mg/dL (8.5-10.1) Magnesium Level 2.6 mg/dL (1.8-2.4) Urine Collection Type Unknown Urine Color [place] Urine Clarity Clear Urine pH 6.0 (<5.0-8.0) Urine Specific [place] 1.015 (1.000-1.030) Urine Protein 30 mg/dL (NEG-TRACE) Urine Glucose (UA) Negative mg/dL (NEG) Urine Ketones (Stick) Negative mg/dL (NEG) Urine Blood Moderate (NEG) Urine Nitrite Negative (NEG) Urine Bilirubin Small (NEG) Urine Urobilinogen Dipstick 1.0 mg/dL (0.2 mg/dL) Urine Leukocyte Esterase Moderate (NEG) Urine RBC Occ /HPF (0-2) Urine WBC >40 /HPF (0-4) Urine Squamous Epithelial Cells Many /LPF Urine Bacteria Few /HPF (0-FEW) Urine Mucus Marked /LPF Urine Yeast Present /HPF Assessment and Plan Assessmemt and Plan Problems Medical Problems: (1) Abdominal pain Status: Acute Comment Review of Relevant I have reviewed the following items jay (where applicable) has been applied. Medications: Current Medications Medications (Trade) Dose Ordered Sig/Minerva Route PRN Reason Start Time Stop Time Status Last Admin Dose Admin Barium Sulfate (Varibar Thin Liquid Apple) 148 gm 1X ONCE PO 01/14/21 10:00 01/14/21 10:01 DC 01/14/21 11:13 Justifications for Admission Other Justification LINDA HANSEN MD Jan 14, 2021 13:54
[2021-01-14 15:00] VITALS: BP 119/69
[2021-01-14] MEDS: GABAPENTIN 300 MG CAPSULE. PO SCH (16:46)
[2021-01-14] MEDS: ENOXAPARIN 40 MG/0.4 ML SYRINGE. SQ SCH (16:48)
[2021-01-14 19:00] VITALS: BP 112/64
[2021-01-14] MEDS: SENNOSIDES/DOCUSATE 8.6/50MG TABLET. PO SCH (20:53)
[2021-01-14] MEDS: fentaNYL PF VIAL 100 MCG/2 ML VIAL IVP PRN (21:11)
[2021-01-14 23:00] VITALS: BP 85/51
[2021-01-15] MEDS: METOPROLOL IV PUSH 5 MG/5 ML VIAL. IVP SCH ×2 (00:10→05:56)
[2021-01-15 03:00] VITALS: BP 110/68
[2021-01-15] MEDS: AMINO AC 3%/ELECTROLYTE/GLYCER 1,000 ML IV SCH (06:31)
[2021-01-15 07:00] VITALS: BP 108/70
[2021-01-15] MEDS: BUDESONIDE 0.5 MG/2 ML NEBU. NEB SCH ×2 (07:05→21:33)
[2021-01-15] MEDS: IPRATRPIUM/ALBUTEROL 0.5/2.5MG 3 ML NEBU. NEB SCH ×4 (07:05→21:33)
[2021-01-15] MEDS: PANTOPRAZOLE IV PUSH 40 MG VIAL. IVP SCH (07:30)
[2021-01-15] MEDS: PANTOPRAZOLE 40 MG TABLET.DR. PO SCH (08:03)
[2021-01-15] MEDS: POTASSIUM CHLORIDE 10 MEQ TABLET.ER. PO SCH (08:04)
[2021-01-15] MEDS: BISACODYL 10 MG SUPP.RECT. PR SCH (09:00)
[2021-01-15] MEDS: SERTRALINE 50 MG TABLET. PO SCH (09:03)
[2021-01-15] MEDS: ATORVASTATIN CALCIUM 10 MG TABLET. PO SCH (09:03)
[2021-01-15] MEDS: METOPROLOL SUCC 24HR ER 25 MG TAB.ER.24H. PO SCH (09:03)
[2021-01-15] MEDS: ASPIRIN CHEWABLE 81 MG TABLET. PO SCH (09:03)
[2021-01-15] MEDS: PREGABALIN 75 MG CAPSULE PO SCH ×2 (09:03→21:09)
[2021-01-15] MEDS: LISINOPRIL 5 MG TABLET. PO SCH (09:04)
[2021-01-15] MEDS: IPRATROPIUM BROMIDE 0.06% NASAL SPRAY 15ML BOTTLE. NS SCH ×2 (09:04→21:09)
[2021-01-15] MEDS: POLYETHYLENE GLYCOL 3350 17 GM PACKET. PO SCH (09:04)
[2021-01-15] MEDS: FUROSEMIDE 20 MG/2 ML VIAL. IVP SCH (09:05)
[2021-01-15] MEDS: IV NORMAL SALINE 1000ML BAG 1,000 ML IV SCH (09:08)
[2021-01-15] MEDS ORDERED: oxyCODONE IR 5 MG TABLET PO PRN (10:45)
--- NOTE | 2021-01-15 10:52 | PDOC ---
GENERAL General: Patient examined chart reviewed discussed with nursing. Today's hospital day 18 for this patient with acute on chronic hypoxic respiratory failure secondary to systolic congestive heart failure and oxygen dependent COPD. He was admitted with increasing symptoms from known right-sided colon cancer diagnosed several months ago. He is now postop day 11 from colon mass resection and liver biopsy which demonstrated metastatic colon adenocarcinoma. We appreciate subspecialty support. He is making very slow progress held back mostly by his extensive chronic disease. We will continue current management over the weekend. We have added low-dose oxycodone for his chronic back pain as he is able to take more oral medications at this point Problems: (1) Cardiomyopathy (2) Metastatic colon cancer to liver (3) CHF (congestive heart failure) (4) COPD exacerbation VITAL SIGNS Vital Signs/I&O: Vital Signs Date Time Temp Pulse Resp B/P (MAP) Pulse Ox O2 Delivery O2 Flow Rate FiO2 01/15/21 09:04 70 108/70 01/15/21 08:15 Nasal Cannula 6.0 01/15/21 07:06 95 01/15/21 07:00 97.8 18 97.8 I & O 01/14/21 01/14/21 01/15/21 15:00 23:00 07:00 Intake Total 1000 ml 150 ml 150 ml Output Total 2250 ml 100 ml 350 ml Balance -1250 ml 50 ml -200 ml In general the patient is pleasant resting comfortably at baseline orientation in no acute distress HEENT exam is unremarkable for acute abnormality Patient is quite dyspneic which appears to be his baseline Chest bilateral equal air entry though diminished throughout no crackles or wheezes are noted Heart S1-S2 normal tachycardic no murmurs or gallops are noted Abdomen is obese soft nontender nondistended no masses organomegaly noted Extremity exam is notable for marked anasarca throughout ALLERGIES Allergies: Allergies Coded Allergies Type Severity Reaction Last Updated Verified No Known Drug Allergies 10/15/20 No LAB Lab: Current Medications Medications (Trade) Dose Ordered Sig/Minerva Start Time Stop Time Status Last Admin Dose Admin Albuterol/ Ipratropium (Duoneb) 3 ml RTQID 12/30/20 12:00 01/15/21 07:05 Amino Acids/ Glycerin/ Electrolytes 1,000 ml @ 80 mls/hr [id number] 01/08/21 12:00 01/15/21 06:31 Aspirin (Aspirin Chewable) 81 mg DAILY 12/30/20 12:30 01/15/21 09:03 Atorvastatin Calcium (Lipitor) 10 mg DAILY 12/30/20 12:30 01/15/21 09:03 Barium Sulfate (Varibar Thin Liquid [place]) 148 gm 1X ONCE 01/14/21 10:00 01/14/21 10:01 DC 01/14/21 11:13 Bisacodyl (Dulcolax Supp) 10 mg DAILY 12/31/20 12:00 01/13/21 09:02 Budesonide (Pulmicort) 0.5 mg RTBID 01/02/21 20:00 01/15/21 07:05 Ceftriaxone Sodium (Rocephin) 1 gm 1X PREOP 01/04/21 09:00 01/05/21 11:22 DC 01/04/21 09:48 Cellulose (Surgicel Hemostat 4x8) 1 each STK-MED ONCE 01/04/21 10:47 01/04/21 10:48 Cancel Dexamethasone Sodium Phosphate (Decadron) 4 mg STK-MED ONCE 01/04/21 08:29 01/04/21 08:30 DC Enoxaparin Sodium (Lovenox 40mg Syringe) 40 mg Q24H 01/04/21 16:00 01/14/21 16:48 Ephedrine Sulfate (ePHEDrine PF IN SALINE SYRINGE) 50 mg STK-MED ONCE 12/31/20 08:24 12/31/20 08:24 DC Etomidate (Amidate) 20 mg STK-MED ONCE 12/31/20 08:23 12/31/20 08:24 DC Fentanyl Citrate (Fentanyl 2ml Vial) 25 mcg PRN Q2HR PRN 01/12/21 01:15 01/14/21 21:11 Furosemide (Lasix) 40 mg 1X ONCE 01/07/21 10:45 01/07/21 10:46 DC 01/07/21 10:50 Gabapentin (Neurontin) 300 mg DAILYWSUP 12/30/20 17:00 01/14/21 16:46 Glycopyrrolate (Robinul) 1 mg STK-MED ONCE 12/31/20 08:23 12/31/20 08:23 DC Guaifenesin (Mucinex) 600 mg BID 01/02/21 22:00 01/15/21 09:03 Hydromorphone HCl (Dilaudid) 2 mg STK-MED ONCE 01/04/21 12:42 01/04/21 12:42 DC Ipratropium [place] (Atrovent Nasal) 2 spray BID 12/30/20 21:00 01/15/21 09:04 Ipratropium [place] (Atrovent) 1 mg QID 12/30/20 13:00 12/30/20 11:54 DC Iron Sucrose 500 mg/Sodium Chloride 275 ml @ 78.571 mls/ hr 1X ONCE 12/31/20 13:00 12/31/20 16:29 DC 12/31/20 16:06 Ketamine HCl (Ketamine) 50 mg STK-MED ONCE 01/04/21 15:01 01/04/21 15:02 DC Lidocaine HCl (Lidocaine Pf 2% Vial) 5 ml STK-MED ONCE 01/04/21 08:29 01/04/21 08:30 DC Lidocaine HCl (Xylocaine-Mpf 1% 2ml Vial) 2 ml STK-MED ONCE 01/04/21 08:08 01/04/21 08:09 DC Lisinopril (Prinivil) 5 mg DAILY 12/30/20 12:30 01/15/21 09:04 Metoprolol Succinate (Toprol Xl) 25 mg DAILY 12/30/20 12:30 01/15/21 09:03 Metoprolol Tartrate (Lopressor Vial) 5 mg 1X ONCE 01/12/21 12:30 01/12/21 12:31 DC 01/12/21 13:47 Metronidazole 100 ml @ 100 mls/hr 1X PREOP 01/04/21 09:00 01/04/21 18:00 DC 01/04/21 09:49 Morphine Sulfate (Morphine Sulfate) 1 mg PRN Q10MIN PRN 01/04/21 06:00 01/05/21 05:59 DC Naloxone HCl (Narcan) 0.4 mg PRN Q2MIN PRN 01/04/21 11:30 Ondansetron HCl (Zofran) 4 mg PRN Q6HRS PRN 01/04/21 11:30 01/12/21 05:29 Oxymetazoline HCl (Afrin) 2 spray PRN BID PRN 01/02/21 21:45 01/03/21 09:36 Pantoprazole Sodium (PROTONIX VIAL for IV PUSH) 40 mg DAILYAC 01/12/21 01:15 01/14/21 07:35 Pantoprazole Sodium (Protonix) 40 mg DAILYAC 12/30/20 12:30 01/15/21 08:03 Phenylephrine HCl (Can-Synephrine Inj) 10 mg STK-MED ONCE 01/04/21 08:55 01/04/21 08:56 DC Phenylephrine HCl (PHENYLEPHRINE in 0.9% NACL PF) 1 mg STK-MED ONCE 12/31/20 08:24 12/31/20 08:24 DC Phytonadione (Vitamin K Ampule) 10 mg 1X ONCE 12/29/20 12:30 12/29/20 12:31 DC 12/29/20 12:57 Piperacillin Sod/ Tazobactam Sod (Zosyn Per Pharmacy) 1 each PRN DAILY PRN 12/29/20 12:30 12/30/20 13:32 DC Piperacillin Sod/ Tazobactam Sod 3.375 gm/Sodium Chloride 50 ml @ 100 mls/hr Q6HRS 12/29/20 19:00 12/30/20 13:32 DC 12/30/20 12:01 Polyethylene Glycol (miraLAX PACKET) 17 gm DAILY 12/31/20 12:00 01/15/21 09:04 Potassium Chloride (Klor-Con) 10 meq [id number] 12/30/20 12:30 01/15/21 08:04 Pregabalin (Lyrica) 75 mg BID 12/30/20 21:00 01/15/21 09:03 Prochlorperazine Edisylate (Compazine) 10 mg PRN Q6HRS PRN 01/12/21 06:00 01/12/21 06:37 Propofol (Diprivan) 200 mg STK-MED ONCE 01/04/21 08:29 01/04/21 08:30 DC Ringer's Solution 1,000 ml @ 100 mls/hr Q10H 01/04/21 12:00 01/08/21 11:37 DC 01/08/21 05:42 Rocuronium [place] (Zemuron) 50 mg STK-MED ONCE 01/04/21 09:43 01/04/21 09:43 DC Saliva Substitute (Biotene Moisturizing Mouth) 2 spray PRN Q15MIN PRN 01/05/21 10:00 01/05/21 17:47 Senna/Docusate Sodium (Senna Plus) 2 tab QHS 12/30/20 21:00 01/14/21 20:53 Sertraline HCl (Zoloft) 50 mg DAILY 12/30/20 12:30 01/15/21 09:03 Sevoflurane (Ultane) 90 ml STK-MED ONCE 01/04/21 11:03 01/04/21 11:04 DC Sodium Chloride 500 ml @ 500 mls/hr 1X ONCE 01/08/21 11:45 01/08/21 12:44 DC 01/08/21 12:44 Sodium Chloride (Normal Saline Flush) 3 ml QSHIFT PRN 01/04/21 11:30 Succinylcholine Chloride (Anectine) 200 mg STK-MED ONCE 01/04/21 08:30 01/04/21 08:30 DC Temazepam (Restoril) 15 mg PRN QHS PRN 01/02/21 21:45 01/03/21 20:53 ASSESSMENT & PLAN A&P Plan as noted above This note was created using [employer] and may have omissions and/or errors due to the nature of real-time voice regrader. Justifications for Admission Other Justification Nutrition Consultation Dietary Evaluation: Recommendations by RD: Dietary education by RD, PPN/TPN Comments: REC continue PPN at this time REC diet per CLUTCH OPERATOR with cardiac restrictions and ONS (oral nutrition supplements) Expected Outcomes/Goals: New goal 01/06: Diet advancement s/p colon surgery- goal ongoing Malnutrition Findings: Food and Nutrition Intake (Sev: <50% est energy req 5days Weight Status: Overweight Fluid Accumulation (Non-Severe: Mild depletion JUJU JUNIOR MD Jan 15, 2021 10:52
[2021-01-15 11:00] VITALS: BP 112/69
--- NOTE | 2021-01-15 12:05 | PDOC ---
PULMONARY PROGRESS NOTES DATE: 01/15/21 TIME: 12:03 Subjective Patient sitting at the edge of the bed, no respiratory distress. Ate breakfast, Vitals Vital Signs Date Time Temp Pulse Resp B/P (MAP) Pulse Ox O2 Delivery O2 Flow Rate FiO2 01/15/21 10:52 95 Nasal Cannula 6.0 01/15/21 09:04 70 108/70 01/15/21 07:00 97.8 18 97.8 ROS: No Nausea, No Chest Pain, No Increase Cough General: Alert, No acute distress Lungs: Clear Cardiovascular: S1, S2 Abdomen: Soft, Non-tender, Other (distended ) Neuro Exam: Alert Extremities: Other (Edema) Skin: Warm Labs Laboratory Tests Test 01/13/21 14:23 01/14/21 09:20 01/14/21 10:38 Coronavirus (PCR) Not detected (Not Detected) White Blood Count 7.4 x10^3/uL (4.0-11.0) Red Blood Count 3.64 x10^6/uL (4.30-5.70) Hemoglobin 8.9 g/dL (13.0-17.5) Hematocrit 30.3 % (39.0-53.0) Mean Corpuscular Volume 83 fL (79-100) Mean Corpuscular Hemoglobin 25 pg (25-35) Mean Corpuscular Hemoglobin Concent 30 g/dL (31-37) Red Cell Distribution Width 26.1 % (11.5-14.5) Platelet Count 158 x10^3/uL (140-400) Neutrophils (%) (Auto) 86 % (31-73) Lymphocytes (%) (Auto) 6 % (24-48) Monocytes (%) (Auto) 6 % (0-9) Eosinophils (%) (Auto) 2 % (0-3) Basophils (%) (Auto) 1 % (0-3) Neutrophils # (Auto) 6.3 x10^3/uL (1.8-7.7) Lymphocytes # (Auto) 0.4 x10^3/uL (1.0-4.8) Monocytes # (Auto) 0.5 x10^3/uL (0.0-1.1) Eosinophils # (Auto) 0.1 x10^3/uL (0.0-0.7) Basophils # (Auto) 0.0 x10^3/uL (0.0-0.2) Sodium Level 140 mmol/L (136-145) Potassium Level 4.8 mmol/L (3.5-5.1) Chloride Level 105 mmol/L (98-107) Carbon Dioxide Level 26 mmol/L (21-32) Anion Gap 9 (6-14) Blood Urea Nitrogen 32 mg/dL (8-26) Creatinine 1.1 mg/dL (0.7-1.3) Estimated GFR (Cockcroft-Gault) 64.9 Glucose Level 106 mg/dL (70-99) Calcium Level 7.6 mg/dL (8.5-10.1) Magnesium Level 2.6 mg/dL (1.8-2.4) Urine Collection Type Unknown Urine Color [place] Urine Clarity Clear Urine pH 6.0 (<5.0-8.0) Urine Specific [place] 1.015 (1.000-1.030) Urine Protein 30 mg/dL (NEG-TRACE) Urine Glucose (UA) Negative mg/dL (NEG) Urine Ketones (Stick) Negative mg/dL (NEG) Urine Blood Moderate (NEG) Urine Nitrite Negative (NEG) Urine Bilirubin Small (NEG) Urine Urobilinogen Dipstick 1.0 mg/dL (0.2 mg/dL) Urine Leukocyte Esterase Moderate (NEG) Urine RBC Occ /HPF (0-2) Urine WBC >40 /HPF (0-4) Urine Squamous Epithelial Cells Many /LPF Urine Bacteria Few /HPF (0-FEW) Urine Mucus Marked /LPF Urine Yeast Present /HPF Medications Active Scripts Medications Dose Route/Sig Max Daily Dose Days Date Category Sertraline Hcl 50 Mg Tablet 50 Mg PO DAILY 12/29/20 Reported Budesonide 0.5 Mg/2 Ml Ampul.neb 1 Vial NEB BID 12/29/20 Reported Tudorza Pressair (Aclidinium [place]) 400 Mcg Aer.pow.ba 1 Puff IH BID 12/29/20 Reported Ipratropium [place] 0.2 Mg/1 Ml Solution 1 Vial NEB QID 12/29/20 Reported Klor-Con 10 (Potassium Chloride) 10 Meq Tablet.er 1 Tab PO DAILY 30 12/29/20 Reported Lyrica (Pregabalin) 75 Mg Capsule 1 Cap PO BID 12/29/20 Reported Lisinopril 5 Mg Tablet 5 Mg PO DAILY 10/17/20 Rx Senna Plus Tablet (Sennosides/Docusate Sodium) 1 Each Tablet 2 Tab PO QHS 14 10/01/20 Rx Ipratropium [place] 15 Ml [place] 2 Sprays NS BID 07/08/20 Reported Metoprolol Succinate ( Xl ) (Metoprolol Succinate) 25 Mg Tab.er.24h 1 Tab PO DAILY 30 07/08/20 Reported Pantoprazole Sodium 40 Mg Tablet.dr 1 Tab PO DAILY 30 07/08/20 Reported Gabapentin (Gabapentin) 300 Mg Capsule 300 Mg PO DAILYWSUP 06/30/19 Reported Aspirin 81 Mg Tab.chew 81 Mg PO DAILY 06/30/19 Reported Furosemide 40 Mg Tablet 40 Mg PO DAILY MDD 1 10/19/18 Rx Lovastatin 40 Mg Tablet 1 Tab PO DAILY 12/14/14 Reported Impression . IMPRESSION: 1. Chronic respiratory failure, multifactorial secondary to severe chronic obstructive pulmonary disease, coronary artery disease, previous coronary artery bypass grafting and deconditioning. 2. Cardiomyopathy, status post coronary artery bypass grafting. 3. Chronic atrial fibrillation. 4. Recent diagnosis of colon cancer. S/P open right colon resection, liver biopsy, see path report 5. Ascites 6. Cephalic vein thrombosis 7. Dysphagia, improving Diagnosis: A. Distal ileum, cecum, ascending colon, and proximal transverse colon with attached mesocolon and portion of omentum, extended right colon resection: - Invasive colorectal adenocarcinoma, moderately to poorly differentiated, forming a nearly circumferential, centrally ulcerated tumor mass measuring up to 5.5 cm in greatest dimension, with tumor invasion through muscularis propria into subserosa/mesocolon. - Focal lymphovascular tumor invasion identified. - Fourteen mesocolic lymph nodes negative for tumor (0/14). - Proximal (distal ileum), distal (transverse colon), and mesocolic margins of resection negative for tumor. - Omentum negative for tumor. - Adiposity of ileocecal valve. - Fibrofatty obliteration of distal appendiceal lumen. - Melanosis coli. . B. Liver biopsy: - Metastatic adenocarcinoma, consistent with colorectal origin. Plan . Updated 01/15 Patient started on oral feeding Aggressive PT and OT Patient instructed to sit up in a chair all day Continue aggressive pulmonary hygiene Discussed with RN Updated 01/14 Video dysphagia,IMPRESSION: Silent aspiration which resolves with a chin tuck maneuver. Please refer to the separate report by the speech pathologist for c amy recommendations. Work-up PT and OT Up to chair Diet per speech Updated 01/13 Discussed with speech, possible video dysphagia tomorrow Up to a chair PT OT Oxygen supplementation 01/12 To possibly undergo speech evaluation with video dysphagia study today Patient being evaluated for's new Discussed with surgery Continue oxygen supplementation Up to chair Avoid oversedation Aggressive pulmonary hygiene DVT GI prophylaxis RADAMES MORALES MD Jan 15, 2021 12:05
[2021-01-15 15:00] VITALS: BP 116/70
[2021-01-15] MEDS: ENOXAPARIN 40 MG/0.4 ML SYRINGE. SQ SCH (15:31)
[2021-01-15] MEDS: GABAPENTIN 300 MG CAPSULE. PO SCH (16:56)
[2021-01-15 19:58] VITALS: BP 105/61
--- NOTE | 2021-01-15 20:20 | PDOC ---
SURGICAL PROGRESS NOTE DATE: 01/15/21 TIME: 20:18 Subjective Pt with c/o some incisional pain, no N/V, pepe some clears per speech Vital Signs Vital Signs Date Time Temp Pulse Resp B/P (MAP) Pulse Ox O2 Delivery O2 Flow Rate FiO2 01/15/21 19:58 97.6 71 16 105/61 (76) 92 Nasal Cannula 6.0 97.6 I&O Intake and Output 01/15/21 07:00 Intake Total 1300 ml Output Total 2700 ml Balance -1400 ml Intake Oral 300 ml IV Total 1000 ml Output Urine Total 2700 ml General: Alert, Oriented X3, Cooperative, No acute distress Abdomen: Soft, No tenderness Labs Laboratory Tests Test 01/14/21 09:20 01/14/21 10:38 White Blood Count 7.4 x10^3/uL (4.0-11.0) Red Blood Count 3.64 x10^6/uL (4.30-5.70) Hemoglobin 8.9 g/dL (13.0-17.5) Hematocrit 30.3 % (39.0-53.0) Mean Corpuscular Volume 83 fL (79-100) Mean Corpuscular Hemoglobin 25 pg (25-35) Mean Corpuscular Hemoglobin Concent 30 g/dL (31-37) Red Cell Distribution Width 26.1 % (11.5-14.5) Platelet Count 158 x10^3/uL (140-400) Neutrophils (%) (Auto) 86 % (31-73) Lymphocytes (%) (Auto) 6 % (24-48) Monocytes (%) (Auto) 6 % (0-9) Eosinophils (%) (Auto) 2 % (0-3) Basophils (%) (Auto) 1 % (0-3) Neutrophils # (Auto) 6.3 x10^3/uL (1.8-7.7) Lymphocytes # (Auto) 0.4 x10^3/uL (1.0-4.8) Monocytes # (Auto) 0.5 x10^3/uL (0.0-1.1) Eosinophils # (Auto) 0.1 x10^3/uL (0.0-0.7) Basophils # (Auto) 0.0 x10^3/uL (0.0-0.2) Sodium Level 140 mmol/L (136-145) Potassium Level 4.8 mmol/L (3.5-5.1) Chloride Level 105 mmol/L (98-107) Carbon Dioxide Level 26 mmol/L (21-32) Anion Gap 9 (6-14) Blood Urea Nitrogen 32 mg/dL (8-26) Creatinine 1.1 mg/dL (0.7-1.3) Estimated GFR (Cockcroft-Gault) 64.9 Glucose Level 106 mg/dL (70-99) Calcium Level 7.6 mg/dL (8.5-10.1) Magnesium Level 2.6 mg/dL (1.8-2.4) Urine Collection Type Unknown Urine Color [place] Urine Clarity Clear Urine pH 6.0 (<5.0-8.0) Urine Specific [place] 1.015 (1.000-1.030) Urine Protein 30 mg/dL (NEG-TRACE) Urine Glucose (UA) Negative mg/dL (NEG) Urine Ketones (Stick) Negative mg/dL (NEG) Urine Blood Moderate (NEG) Urine Nitrite Negative (NEG) Urine Bilirubin Small (NEG) Urine Urobilinogen Dipstick 1.0 mg/dL (0.2 mg/dL) Urine Leukocyte Esterase Moderate (NEG) Urine RBC Occ /HPF (0-2) Urine WBC >40 /HPF (0-4) Urine Squamous Epithelial Cells Many /LPF Urine Bacteria Few /HPF (0-FEW) Urine Mucus Marked /LPF Urine Yeast Present /HPF Problem List Problems Medical Problems: (1) Abdominal pain Status: Acute Assessment/Plan s/p right colon cont ADAT per speech Justicifation of Admission Dx: Justifications for Admission: Justification of Admission Dx: Yes Respiratory Failure: Severe Resp Distress MADDIE REYES MD Jan 15, 2021 20:20
[2021-01-15] MEDS: SENNOSIDES/DOCUSATE 8.6/50MG TABLET. PO SCH (21:09)
[2021-01-15 23:16] VITALS: BP 98/52
[2021-01-16] MEDS: AMINO AC 3%/ELECTROLYTE/GLYCER 1,000 ML IV SCH ×3 (00:26→14:23)
[2021-01-16 03:40] VITALS: BP 100/55
[2021-01-16 05:07] LABS: BASO % 0 % (0-3); EOS # 0.1 x10^3/uL (0.0-0.7); EOS % 3 % (0-3); HEMATOCRIT 25.8 % (39.0-53.0); HEMOGLOBIN 7.8 g/dL (13.0-17.5); LYMPH # 0.4 x10^3/uL (1.0-4.8); LYMPH % 7 % (24-48); MEAN CORPUSCULAR HEMOGLOBIN 25 pg (25-35); MEAN CORPUSCULAR HGB CONC 30 g/dL (31-37); MEAN CORPUSCULAR VOLUME 82 fL (79-100); MONO # 0.4 x10^3/uL (0.0-1.1); MONO % 7 % (0-9); NEUT % 83 % (31-73); PLATELET COUNT 136 x10^3/uL (140-400); RED BLOOD COUNT 3.16 x10^6/uL (4.30-5.70); RED CELL DISTRIBUTION WIDTH 26.6 % (11.5-14.5)
[2021-01-16 05:44] LABS: ALBUMIN/GLOBULIN RATIO 0.6 (1.0-1.7); CALCIUM 7.2 mg/dL (8.5-10.1); CREATININE 0.9 mg/dL (0.7-1.3); GFR 81.8; POTASSIUM 4.3 mmol/L (3.5-5.1); TOTAL PROTEIN 5.1 g/dL (6.4-8.2)
[2021-01-16 07:00] VITALS: BP 117/63
[2021-01-16] MEDS: BUDESONIDE 0.5 MG/2 ML NEBU. NEB SCH ×2 (07:14→21:31)
[2021-01-16] MEDS: IPRATRPIUM/ALBUTEROL 0.5/2.5MG 3 ML NEBU. NEB SCH ×4 (07:14→21:31)
[2021-01-16] MEDS: PANTOPRAZOLE IV PUSH 40 MG VIAL. IVP SCH (07:30)
[2021-01-16 07:46] LABS: % BANDS 2 % (0-9); % BASOS 1 % (0-3); % EOS 2 % (0-5); % LYMPHS 3 % (24-48); % MONOS 4 % (0-10); % SEGS 88 % (35-66); HYPOCHROMIA PRESENT; PLT ESTIMATE DECREASED (ADEQUATE)
[2021-01-16 07:47] LABS: ANISOCYTOSIS PRESENT; OVALOCYTES OCC
[2021-01-16] MEDS: POTASSIUM CHLORIDE 10 MEQ TABLET.ER. PO SCH (08:34)
[2021-01-16] MEDS: PANTOPRAZOLE 40 MG TABLET.DR. PO SCH (08:34)
[2021-01-16] MEDS: IPRATROPIUM BROMIDE 0.06% NASAL SPRAY 15ML BOTTLE. NS SCH ×2 (08:36→20:37)
[2021-01-16] MEDS: ATORVASTATIN CALCIUM 10 MG TABLET. PO SCH ×2 (08:36→20:35)
[2021-01-16] MEDS: SERTRALINE 50 MG TABLET. PO SCH (08:36)
[2021-01-16] MEDS: ASPIRIN CHEWABLE 81 MG TABLET. PO SCH (08:36)
[2021-01-16] MEDS: POLYETHYLENE GLYCOL 3350 17 GM PACKET. PO SCH (08:37)
[2021-01-16] MEDS: PREGABALIN 75 MG CAPSULE PO SCH ×2 (08:37→20:35)
--- NOTE | 2021-01-16 08:47 | NUR ---
This RN nonadministered PPN this am. Previous bottle still infusing. Refer to EMAR for further details.
[2021-01-16] MEDS: BISACODYL 10 MG SUPP.RECT. PR SCH (09:00)
--- NOTE | 2021-01-16 09:35 | PDOC ---
SURGICAL PROGRESS NOTE DATE: 01/16/21 TIME: 09:34 Subjective up eating breakfast no complaints Vital Signs Vital Signs Date Time Temp Pulse Resp B/P (MAP) Pulse Ox O2 Delivery O2 Flow Rate FiO2 01/16/21 08:30 Nasal Cannula 6.0 01/16/21 07:14 98 01/16/21 03:40 97.4 70 16 100/55 (70) 97.4 I&O Intake and Output 01/16/21 07:00 Intake Total 300 ml Output Total 450 ml Balance -150 ml Intake Oral 300 ml Output Urine Total 450 ml # Voids 3 # Bowel Movements 3 General: Alert, Oriented X3, Cooperative Abdomen: Soft, No tenderness Labs Laboratory Tests Test 01/14/21 10:38 01/16/21 03:30 Urine Collection Type Unknown Urine Color Livier Urine Clarity Clear Urine pH 6.0 (<5.0-8.0) Urine Specific Keyser 1.015 (1.000-1.030) Urine Protein 30 mg/dL (NEG-TRACE) Urine Glucose (UA) Negative mg/dL (NEG) Urine Ketones (Stick) Negative mg/dL (NEG) Urine Blood Moderate (NEG) Urine Nitrite Negative (NEG) Urine Bilirubin Small (NEG) Urine Urobilinogen Dipstick 1.0 mg/dL (0.2 mg/dL) Urine Leukocyte Esterase Moderate (NEG) Urine RBC Occ /HPF (0-2) Urine WBC >40 /HPF (0-4) Urine Squamous Epithelial Cells Many /LPF Urine Bacteria Few /HPF (0-FEW) Urine Mucus Marked /LPF Urine Yeast Present /HPF White Blood Count 6.0 x10^3/uL (4.0-11.0) Red Blood Count 3.16 x10^6/uL (4.30-5.70) Hemoglobin 7.8 g/dL (13.0-17.5) Hematocrit 25.8 % (39.0-53.0) Mean Corpuscular Volume 82 fL (79-100) Mean Corpuscular Hemoglobin 25 pg (25-35) Mean Corpuscular Hemoglobin Concent 30 g/dL (31-37) Red Cell Distribution Width 26.6 % (11.5-14.5) Platelet Count 136 x10^3/uL (140-400) Neutrophils (%) (Auto) 83 % (31-73) Lymphocytes (%) (Auto) 7 % (24-48) Monocytes (%) (Auto) 7 % (0-9) Eosinophils (%) (Auto) 3 % (0-3) Basophils (%) (Auto) 0 % (0-3) Neutrophils # (Auto) 5.0 x10^3/uL (1.8-7.7) Lymphocytes # (Auto) 0.4 x10^3/uL (1.0-4.8) Monocytes # (Auto) 0.4 x10^3/uL (0.0-1.1) Eosinophils # (Auto) 0.1 x10^3/uL (0.0-0.7) Basophils # (Auto) 0.0 x10^3/uL (0.0-0.2) Segmented Neutrophils % 88 % (35-66) Band Neutrophils % 2 % (0-9) Lymphocytes % 3 % (24-48) Monocytes % 4 % (0-10) Eosinophils % 2 % (0-5) Basophils % 1 % (0-3) Platelet Estimate Decreased (ADEQUATE) Large Platelets Present Hypochromasia Present Anisocytosis Present Ovalocytes Occ Sodium Level 135 mmol/L (136-145) Potassium Level 4.3 mmol/L (3.5-5.1) Chloride Level 102 mmol/L (98-107) Carbon Dioxide Level 27 mmol/L (21-32) Anion Gap 6 (6-14) Blood Urea Nitrogen 27 mg/dL (8-26) Creatinine 0.9 mg/dL (0.7-1.3) Estimated GFR (Cockcroft-Gault) 81.8 BUN/Creatinine Ratio 30 (6-20) Glucose Level 87 mg/dL (70-99) Calcium Level 7.2 mg/dL (8.5-10.1) Total Bilirubin 5.0 mg/dL (0.2-1.0) Aspartate Amino Transf (AST/SGOT) 43 U/L (15-37) Alanine Aminotransferase (ALT/SGPT) 49 U/L (16-63) Alkaline Phosphatase 149 U/L (46-116) Total Protein 5.1 g/dL (6.4-8.2) Albumin 2.0 g/dL (3.4-5.0) Albumin/Globulin Ratio 0.6 (1.0-1.7) Laboratory Tests Test 01/16/21 03:30 White Blood Count 6.0 x10^3/uL (4.0-11.0) Red Blood Count 3.16 x10^6/uL (4.30-5.70) Hemoglobin 7.8 g/dL (13.0-17.5) Hematocrit 25.8 % (39.0-53.0) Mean Corpuscular Volume 82 fL (79-100) Mean Corpuscular Hemoglobin 25 pg (25-35) Mean Corpuscular Hemoglobin Concent 30 g/dL (31-37) Red Cell Distribution Width 26.6 % (11.5-14.5) Platelet Count 136 x10^3/uL (140-400) Neutrophils (%) (Auto) 83 % (31-73) Lymphocytes (%) (Auto) 7 % (24-48) Monocytes (%) (Auto) 7 % (0-9) Eosinophils (%) (Auto) 3 % (0-3) Basophils (%) (Auto) 0 % (0-3) Neutrophils # (Auto) 5.0 x10^3/uL (1.8-7.7) Lymphocytes # (Auto) 0.4 x10^3/uL (1.0-4.8) Monocytes # (Auto) 0.4 x10^3/uL (0.0-1.1) Eosinophils # (Auto) 0.1 x10^3/uL (0.0-0.7) Basophils # (Auto) 0.0 x10^3/uL (0.0-0.2) Segmented Neutrophils % 88 % (35-66) Band Neutrophils % 2 % (0-9) Lymphocytes % 3 % (24-48) Monocytes % 4 % (0-10) Eosinophils % 2 % (0-5) Basophils % 1 % (0-3) Platelet Estimate Decreased (ADEQUATE) Large Platelets Present Hypochromasia Present Anisocytosis Present Ovalocytes Occ Sodium Level 135 mmol/L (136-145) Potassium Level 4.3 mmol/L (3.5-5.1) Chloride Level 102 mmol/L (98-107) Carbon Dioxide Level 27 mmol/L (21-32) Anion Gap 6 (6-14) Blood Urea Nitrogen 27 mg/dL (8-26) Creatinine 0.9 mg/dL (0.7-1.3) Estimated GFR (Cockcroft-Gault) 81.8 BUN/Creatinine Ratio 30 (6-20) Glucose Level 87 mg/dL (70-99) Calcium Level 7.2 mg/dL (8.5-10.1) Total Bilirubin 5.0 mg/dL (0.2-1.0) Aspartate Amino Transf (AST/SGOT) 43 U/L (15-37) Alanine Aminotransferase (ALT/SGPT) 49 U/L (16-63) Alkaline Phosphatase 149 U/L (46-116) Total Protein 5.1 g/dL (6.4-8.2) Albumin 2.0 g/dL (3.4-5.0) Albumin/Globulin Ratio 0.6 (1.0-1.7) Problem List Problems Medical Problems: (1) Abdominal pain Status: Acute Assessment/Plan stable surgically ongoing medical care Justicifation of Admission Dx: Justifications for Admission: Justification of Admission Dx: Yes Respiratory Failure: Severe Resp Distress EMEKA COLON APRN Jan 16, 2021 09:35
[2021-01-16] MEDS: IV NORMAL SALINE 1000ML BAG 1,000 ML IV SCH (09:40)
[2021-01-16] MEDS: LISINOPRIL 5 MG TABLET. PO SCH (09:49)
[2021-01-16] MEDS: METOPROLOL SUCC 24HR ER 25 MG TAB.ER.24H. PO SCH (09:50)
[2021-01-16] MEDS: FUROSEMIDE 20 MG/2 ML VIAL. IVP SCH (09:50)
[2021-01-16 11:00] VITALS: BP 94/56
--- NOTE | 2021-01-16 12:10 | PDOC ---
PULMONARY PROGRESS NOTES DATE: 01/16/21 TIME: 12:08 Subjective Diet has been advanced patient with no new complaints Vitals Vital Signs Date Time Temp Pulse Resp B/P (MAP) Pulse Ox O2 Delivery O2 Flow Rate FiO2 01/16/21 09:50 72 117/63 01/16/21 08:30 Nasal Cannula 6.0 01/16/21 07:14 98 01/16/21 07:00 98.4 18 98.4 ROS: No Nausea, No Chest Pain, No Increase Cough General: Alert, No acute distress Lungs: Clear Cardiovascular: S1, S2 Abdomen: Soft, Non-tender, Other (distended ) Neuro Exam: Alert Extremities: Other (Edema) Skin: Warm Labs Laboratory Tests Test 01/16/21 03:30 White Blood Count 6.0 x10^3/uL (4.0-11.0) Red Blood Count 3.16 x10^6/uL (4.30-5.70) Hemoglobin 7.8 g/dL (13.0-17.5) Hematocrit 25.8 % (39.0-53.0) Mean Corpuscular Volume 82 fL (79-100) Mean Corpuscular Hemoglobin 25 pg (25-35) Mean Corpuscular Hemoglobin Concent 30 g/dL (31-37) Red Cell Distribution Width 26.6 % (11.5-14.5) Platelet Count 136 x10^3/uL (140-400) Neutrophils (%) (Auto) 83 % (31-73) Lymphocytes (%) (Auto) 7 % (24-48) Monocytes (%) (Auto) 7 % (0-9) Eosinophils (%) (Auto) 3 % (0-3) Basophils (%) (Auto) 0 % (0-3) Neutrophils # (Auto) 5.0 x10^3/uL (1.8-7.7) Lymphocytes # (Auto) 0.4 x10^3/uL (1.0-4.8) Monocytes # (Auto) 0.4 x10^3/uL (0.0-1.1) Eosinophils # (Auto) 0.1 x10^3/uL (0.0-0.7) Basophils # (Auto) 0.0 x10^3/uL (0.0-0.2) Segmented Neutrophils % 88 % (35-66) Band Neutrophils % 2 % (0-9) Lymphocytes % 3 % (24-48) Monocytes % 4 % (0-10) Eosinophils % 2 % (0-5) Basophils % 1 % (0-3) Platelet Estimate Decreased (ADEQUATE) Large Platelets Present Hypochromasia Present Anisocytosis Present Ovalocytes Occ Sodium Level 135 mmol/L (136-145) Potassium Level 4.3 mmol/L (3.5-5.1) Chloride Level 102 mmol/L (98-107) Carbon Dioxide Level 27 mmol/L (21-32) Anion Gap 6 (6-14) Blood Urea Nitrogen 27 mg/dL (8-26) Creatinine 0.9 mg/dL (0.7-1.3) Estimated GFR (Cockcroft-Gault) 81.8 BUN/Creatinine Ratio 30 (6-20) Glucose Level 87 mg/dL (70-99) Calcium Level 7.2 mg/dL (8.5-10.1) Total Bilirubin 5.0 mg/dL (0.2-1.0) Aspartate Amino Transf (AST/SGOT) 43 U/L (15-37) Alanine Aminotransferase (ALT/SGPT) 49 U/L (16-63) Alkaline Phosphatase 149 U/L (46-116) Total Protein 5.1 g/dL (6.4-8.2) Albumin 2.0 g/dL (3.4-5.0) Albumin/Globulin Ratio 0.6 (1.0-1.7) Laboratory Tests Test 01/16/21 03:30 White Blood Count 6.0 x10^3/uL (4.0-11.0) Red Blood Count 3.16 x10^6/uL (4.30-5.70) Hemoglobin 7.8 g/dL (13.0-17.5) Hematocrit 25.8 % (39.0-53.0) Mean Corpuscular Volume 82 fL (79-100) Mean Corpuscular Hemoglobin 25 pg (25-35) Mean Corpuscular Hemoglobin Concent 30 g/dL (31-37) Red Cell Distribution Width 26.6 % (11.5-14.5) Platelet Count 136 x10^3/uL (140-400) Neutrophils (%) (Auto) 83 % (31-73) Lymphocytes (%) (Auto) 7 % (24-48) Monocytes (%) (Auto) 7 % (0-9) Eosinophils (%) (Auto) 3 % (0-3) Basophils (%) (Auto) 0 % (0-3) Neutrophils # (Auto) 5.0 x10^3/uL (1.8-7.7) Lymphocytes # (Auto) 0.4 x10^3/uL (1.0-4.8) Monocytes # (Auto) 0.4 x10^3/uL (0.0-1.1) Eosinophils # (Auto) 0.1 x10^3/uL (0.0-0.7) Basophils # (Auto) 0.0 x10^3/uL (0.0-0.2) Segmented Neutrophils % 88 % (35-66) Band Neutrophils % 2 % (0-9) Lymphocytes % 3 % (24-48) Monocytes % 4 % (0-10) Eosinophils % 2 % (0-5) Basophils % 1 % (0-3) Platelet Estimate Decreased (ADEQUATE) Large Platelets Present Hypochromasia Present Anisocytosis Present Ovalocytes Occ Sodium Level 135 mmol/L (136-145) Potassium Level 4.3 mmol/L (3.5-5.1) Chloride Level 102 mmol/L (98-107) Carbon Dioxide Level 27 mmol/L (21-32) Anion Gap 6 (6-14) Blood Urea Nitrogen 27 mg/dL (8-26) Creatinine 0.9 mg/dL (0.7-1.3) Estimated GFR (Cockcroft-Gault) 81.8 BUN/Creatinine Ratio 30 (6-20) Glucose Level 87 mg/dL (70-99) Calcium Level 7.2 mg/dL (8.5-10.1) Total Bilirubin 5.0 mg/dL (0.2-1.0) Aspartate Amino Transf (AST/SGOT) 43 U/L (15-37) Alanine Aminotransferase (ALT/SGPT) 49 U/L (16-63) Alkaline Phosphatase 149 U/L (46-116) Total Protein 5.1 g/dL (6.4-8.2) Albumin 2.0 g/dL (3.4-5.0) Albumin/Globulin Ratio 0.6 (1.0-1.7) Medications Active Scripts Medications Dose Route/Sig Max Daily Dose Days Date Category Sertraline Hcl 50 Mg Tablet 50 Mg PO DAILY 12/29/20 Reported Budesonide 0.5 Mg/2 Ml Ampul.neb 1 Vial NEB BID 12/29/20 Reported Tudorza Pressair (Aclidinium Globe) 400 Mcg Aer.pow.ba 1 Puff IH BID 12/29/20 Reported Ipratropium Globe 0.2 Mg/1 Ml Solution 1 Vial NEB QID 12/29/20 Reported Klor-Con 10 (Potassium Chloride) 10 Meq Tablet.er 1 Tab PO DAILY 30 12/29/20 Reported Lyrica (Pregabalin) 75 Mg Capsule 1 Cap PO BID 12/29/20 Reported Lisinopril 5 Mg Tablet 5 Mg PO DAILY 10/17/20 Rx Senna Plus Tablet (Sennosides/Docusate Sodium) 1 Each Tablet 2 Tab PO QHS 14 10/01/20 Rx Ipratropium Globe 15 Ml Keno 2 Sprays NS BID 07/08/20 Reported Metoprolol Succinate ( Xl ) (Metoprolol Succinate) 25 Mg Tab.er.24h 1 Tab PO DAILY 30 07/08/20 Reported Pantoprazole Sodium 40 Mg Tablet.dr 1 Tab PO DAILY 30 07/08/20 Reported Gabapentin (Gabapentin) 300 Mg Capsule 300 Mg PO DAILYWSUP 06/30/19 Reported Aspirin 81 Mg Tab.chew 81 Mg PO DAILY 06/30/19 Reported Furosemide 40 Mg Tablet 40 Mg PO DAILY MDD 1 10/19/18 Rx Lovastatin 40 Mg Tablet 1 Tab PO DAILY 12/14/14 Reported Impression . IMPRESSION: 1. Chronic respiratory failure, multifactorial secondary to severe chronic obstructive pulmonary disease, coronary artery disease, previous coronary artery bypass grafting and deconditioning. 2. Cardiomyopathy, status post coronary artery bypass grafting. 3. Chronic atrial fibrillation. 4. Recent diagnosis of colon cancer. S/P open right colon resection, liver biopsy, see path report 5. Ascites 6. 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 Dysphagia, improving Diagnosis: A. Distal ileum, cecum, ascending colon, and proximal transverse colon with attached mesocolon and portion of omentum, extended right colon resection: - Invasive colorectal adenocarcinoma, moderately to poorly differentiated, forming a nearly circumferential, centrally ulcerated tumor mass measuring up to 5.5 cm in greatest dimension, with tumor invasion through muscularis propria into subserosa/mesocolon. - Focal lymphovascular tumor invasion identified. - Fourteen mesocolic lymph nodes negative for tumor (0/14). - Proximal (distal ileum), distal (transverse colon), and mesocolic margins of resection negative for tumor. - Omentum negative for tumor. - Adiposity of ileocecal valve. - Fibrofatty obliteration of distal appendiceal lumen. - Melanosis coli. . B. Liver biopsy: - Metastatic adenocarcinoma, consistent with colorectal origin. IMPRESSION: 1. No evidence of deep venous thrombosis. 2. Occlusive thrombus in the superficial left upper extremity venous system (cephalic vein). Plan . Updated 01/16 Patient diet has been advanced no respiratory distress PT OT Up in chair Social service working on disposition Updated 01/15 Patient started on oral feeding Aggressive PT and OT Patient instructed to sit up in a chair all day Continue aggressive pulmonary hygiene Discussed with RN Updated 01/14 Video dysphagia,IMPRESSION: Silent aspiration which resolves with a chin tuck maneuver. Please refer to the separate report by the speech pathologist for clinical recommendations. Work-up PT and OT Up to chair Diet per speech RADAMES MORALES MD Jan 16, 2021 12:10
[2021-01-16 15:00] VITALS: BP 104/56
--- NOTE | 2021-01-16 15:13 | PDOC ---
GENERAL General: Patient examined chart reviewed no events overnight noted. Patient is in good spirits this afternoon sitting up in his chair. He is happy to be eating regular food again it has been a long time. Will need rehab for strengthening on discharge given the extent of his underlying multimorbidity and the duration of his stay. We will continue current management otherwise. We appreciate subspecialty support. Problems: (1) Metastatic colon cancer to liver (2) COPD exacerbation (3) CHF (congestive heart failure) VITAL SIGNS Vital Signs/I&O: Vital Signs Date Time Temp Pulse Resp B/P (MAP) Pulse Ox O2 Delivery O2 Flow Rate FiO2 01/16/21 13:32 98 Nasal Cannula 5.0 01/16/21 11:00 98.6 61 18 94/56 (69) 98.6 I & O 01/15/21 01/15/21 01/16/21 15:00 23:00 07:00 Intake Total 240 ml 60 ml Output Total 450 ml Balance 240 ml -390 ml In general the patient is pleasant sitting up resting in his chair at baseline orientation in no acute distress HEENT exam is unremarkable for acute abnormality Chest bilateral equal air entry though diminished throughout no crackles or wheezes noted Heart S1-S2 normal regular rate and rhythm no murmurs or gallops are noted Abdomen soft nontender nondistended no masses organomegaly noted. Surgical dressings are dry clean and intact Extremity exam is unremarkable for acute abnormality ALLERGIES Allergies: Allergies Coded Allergies Type Severity Reaction Last Updated Verified No Known Drug Allergies 10/15/20 No MEDS Medications: Current Medications Medications (Trade) Dose Ordered Sig/Minerva Start Time Stop Time Status Last Admin Dose Admin Albuterol/ Ipratropium (Duoneb) 3 ml RTQID 12/30/20 12:00 01/16/21 13:30 Amino Acids/ Glycerin/ Electrolytes 1,000 ml @ 80 mls/hr [id number] 01/08/21 12:00 01/16/21 14:23 Aspirin (Aspirin Chewable) 81 mg DAILY 12/30/20 12:30 01/16/21 08:36 Atorvastatin Calcium (Lipitor) 10 mg DAILY 12/30/20 12:30 01/16/21 08:36 Barium Sulfate (Varibar Thin Liquid Apple) 148 gm 1X ONCE 01/14/21 10:00 01/14/21 10:01 DC 01/14/21 11:13 Bisacodyl (Dulcolax Supp) 10 mg DAILY 12/31/20 12:00 01/13/21 09:02 Budesonide (Pulmicort) 0.5 mg RTBID 01/02/21 20:00 01/16/21 07:14 Ceftriaxone Sodium (Rocephin) 1 gm 1X PREOP 01/04/21 09:00 01/05/21 11:22 DC 01/04/21 09:48 Cellulose (Surgicel Hemostat 4x8) 1 each STK-MED ONCE 01/04/21 10:47 01/04/21 10:48 Cancel Dexamethasone Sodium Phosphate (Decadron) 4 mg STK-MED ONCE 01/04/21 08:29 01/04/21 08:30 DC Enoxaparin Sodium (Lovenox 40mg Syringe) 40 mg Q24H 01/04/21 16:00 01/15/21 15:31 Ephedrine Sulfate (ePHEDrine PF IN SALINE SYRINGE) 50 mg STK-MED ONCE 12/31/20 08:24 12/31/20 08:24 DC Etomidate (Amidate) 20 mg STK-MED ONCE 12/31/20 08:23 12/31/20 08:24 DC Fentanyl Citrate (Fentanyl 2ml Vial) 25 mcg PRN Q2HR PRN 01/12/21 01:15 01/14/21 21:11 Furosemide (Lasix) 40 mg 1X ONCE 01/07/21 10:45 01/07/21 10:46 DC 01/07/21 10:50 Gabapentin (Neurontin) 300 mg DAILYWSUP 12/30/20 17:00 01/15/21 16:56 Glycopyrrolate (Robinul) 1 mg STK-MED ONCE 12/31/20 08:23 12/31/20 08:23 DC Guaifenesin (Mucinex) 600 mg BID 01/02/21 22:00 01/16/21 08:36 Hydromorphone HCl (Dilaudid) 2 mg STK-MED ONCE 01/04/21 12:42 01/04/21 12:42 DC Ipratropium [place] (Atrovent Nasal) 2 spray BID 12/30/20 21:00 01/16/21 08:36 Ipratropium [place] (Atrovent) 1 mg QID 12/30/20 13:00 12/30/20 11:54 DC Iron Sucrose 500 mg/Sodium Chloride 275 ml @ 78.571 mls/ hr 1X ONCE 12/31/20 13:00 12/31/20 16:29 DC 12/31/20 16:06 Ketamine HCl (Ketamine) 50 mg STK-MED ONCE 01/04/21 15:01 01/04/21 15:02 DC Lidocaine HCl (Lidocaine Pf 2% Vial) 5 ml STK-MED ONCE 01/04/21 08:29 01/04/21 08:30 DC Lidocaine HCl (Xylocaine-Mpf 1% 2ml Vial) 2 ml STK-MED ONCE 01/04/21 08:08 01/04/21 08:09 DC Lisinopril (Prinivil) 5 mg DAILY 12/30/20 12:30 01/16/21 09:49 Metoprolol Succinate (Toprol Xl) 25 mg DAILY 12/30/20 12:30 01/16/21 09:50 Metoprolol Tartrate (Lopressor Vial) 5 mg 1X ONCE 01/12/21 12:30 01/12/21 12:31 DC 01/12/21 13:47 Metronidazole 100 ml @ 100 mls/hr 1X PREOP 01/04/21 09:00 01/04/21 18:00 DC 01/04/21 09:49 Morphine Sulfate (Morphine Sulfate) 1 mg PRN Q10MIN PRN 01/04/21 06:00 01/05/21 05:59 DC Naloxone HCl (Narcan) 0.4 mg PRN Q2MIN PRN 01/04/21 11:30 Ondansetron HCl (Zofran) 4 mg PRN Q6HRS PRN 01/04/21 11:30 01/12/21 05:29 Oxycodone HCl (Roxicodone) 5 mg PRN Q6HRS PRN 01/15/21 10:45 Oxymetazoline HCl (Afrin) 2 spray PRN BID PRN 01/02/21 21:45 01/03/21 09:36 Pantoprazole Sodium (PROTONIX VIAL for IV PUSH) 40 mg DAILYAC 01/12/21 01:15 01/14/21 07:35 Pantoprazole Sodium (Protonix) 40 mg DAILYAC 12/30/20 12:30 01/16/21 08:34 Phenylephrine HCl (Can-Synephrine Inj) 10 mg STK-MED ONCE 01/04/21 08:55 01/04/21 08:56 DC Phenylephrine HCl (PHENYLEPHRINE in 0.9% NACL PF) 1 mg STK-MED ONCE 12/31/20 08:24 12/31/20 08:24 DC Phytonadione (Vitamin K Ampule) 10 mg 1X ONCE 12/29/20 12:30 12/29/20 12:31 DC 12/29/20 12:57 Piperacillin Sod/ Tazobactam Sod (Zosyn Per Pharmacy) 1 each PRN DAILY PRN 12/29/20 12:30 12/30/20 13:32 DC Piperacillin Sod/ Tazobactam Sod 3.375 gm/Sodium Chloride 50 ml @ 100 mls/hr Q6HRS 12/29/20 19:00 12/30/20 13:32 DC 12/30/20 12:01 Polyethylene Glycol (miraLAX PACKET) 17 gm DAILY 12/31/20 12:00 01/16/21 08:37 Potassium Chloride (Klor-Con) 10 meq [id number] 12/30/20 12:30 01/16/21 08:34 Pregabalin (Lyrica) 75 mg BID 12/30/20 21:00 01/16/21 08:37 Prochlorperazine Edisylate (Compazine) 10 mg PRN Q6HRS PRN 01/12/21 06:00 01/12/21 06:37 Propofol (Diprivan) 200 mg STK-MED ONCE 01/04/21 08:29 01/04/21 08:30 DC Ringer's Solution 1,000 ml @ 100 mls/hr Q10H 01/04/21 12:00 01/08/21 11:37 DC 01/08/21 05:42 Rocuronium [place] (Zemuron) 50 mg STK-MED ONCE 01/04/21 09:43 01/04/21 09:43 DC Saliva Substitute (Biotene Moisturizing Mouth) 2 spray PRN Q15MIN PRN 01/05/21 10:00 01/05/21 17:47 Senna/Docusate Sodium (Senna Plus) 2 tab QHS 12/30/20 21:00 01/15/21 21:09 Sertraline HCl (Zoloft) 50 mg DAILY 12/30/20 12:30 01/16/21 08:36 Sevoflurane (Ultane) 90 ml STK-MED ONCE 01/04/21 11:03 01/04/21 11:04 DC Sodium Chloride 500 ml @ 500 mls/hr 1X ONCE 01/08/21 11:45 01/08/21 12:44 DC 01/08/21 12:44 Sodium Chloride (Normal Saline Flush) 3 ml QSHIFT PRN 01/04/21 11:30 Succinylcholine Chloride (Anectine) 200 mg STK-MED ONCE 01/04/21 08:30 01/04/21 08:30 DC Temazepam (Restoril) 15 mg PRN QHS PRN 01/02/21 21:45 01/03/21 20:53 LAB Lab: Laboratory Tests Test 01/16/21 03:30 White Blood Count 6.0 x10^3/uL (4.0-11.0) Red Blood Count 3.16 x10^6/uL (4.30-5.70) L Hemoglobin 7.8 g/dL (13.0-17.5) L Hematocrit 25.8 % (39.0-53.0) L Mean Corpuscular Volume 82 fL (79-100) Mean Corpuscular Hemoglobin 25 pg (25-35) Mean Corpuscular Hemoglobin Concent 30 g/dL (31-37) L Red Cell Distribution Width 26.6 % (11.5-14.5) H Platelet Count 136 x10^3/uL (140-400) L Neutrophils (%) (Auto) 83 % (31-73) H Lymphocytes (%) (Auto) 7 % (24-48) L Monocytes (%) (Auto) 7 % (0-9) Eosinophils (%) (Auto) 3 % (0-3) Basophils (%) (Auto) 0 % (0-3) Neutrophils # (Auto) 5.0 x10^3/uL (1.8-7.7) Lymphocytes # (Auto) 0.4 x10^3/uL (1.0-4.8) L Monocytes # (Auto) 0.4 x10^3/uL (0.0-1.1) Eosinophils # (Auto) 0.1 x10^3/uL (0.0-0.7) Basophils # (Auto) 0.0 x10^3/uL (0.0-0.2) Segmented Neutrophils % 88 % (35-66) H Band Neutrophils % 2 % (0-9) Lymphocytes % 3 % (24-48) L Monocytes % 4 % (0-10) Eosinophils % 2 % (0-5) Basophils % 1 % (0-3) Platelet Estimate Decreased (ADEQUATE) Large Platelets Present Hypochromasia Present Anisocytosis Present Ovalocytes Occ Sodium Level 135 mmol/L (136-145) L Potassium Level 4.3 mmol/L (3.5-5.1) Chloride Level 102 mmol/L (98-107) Carbon Dioxide Level 27 mmol/L (21-32) Anion Gap 6 (6-14) Blood Urea Nitrogen 27 mg/dL (8-26) H Creatinine 0.9 mg/dL (0.7-1.3) Estimated GFR (Cockcroft-Gault) 81.8 BUN/Creatinine Ratio 30 (6-20) H Glucose Level 87 mg/dL (70-99) Calcium Level 7.2 mg/dL (8.5-10.1) L Total Bilirubin 5.0 mg/dL (0.2-1.0) H Aspartate Amino Transferase (AST) 43 U/L (15-37) H Alanine Aminotransferase (ALT) 49 U/L (16-63) Alkaline Phosphatase 149 U/L (46-116) H Total Protein 5.1 g/dL (6.4-8.2) L Albumin 2.0 g/dL (3.4-5.0) L Albumin/Globulin Ratio 0.6 (1.0-1.7) L Laboratory Tests 01/16/21 03:30 Laboratory Tests 01/16/21 03:30 ASSESSMENT & PLAN A&P Plan as noted above This note was created using [employer] and may have omissions and/or errors due to the nature of 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 Justifications for Admission Other Justification Nutrition Consultation Dietary Evaluation: Recommendations by RD: Dietary education by RD, PPN/TPN Comments: REC continue PPN at this time REC diet per [employer] with cardiac restrictions and ONS (oral nutrition supplements) Expected Outcomes/Goals: New goal 01/06: Diet advancement s/p colon surgery- goal ongoing Malnutrition Findings: Food and Nutrition Intake (Sev: <50% est energy req 5days Weight Status: Overweight Fluid Accumulation (Non-Severe: Mild depletion JUJU JUNIOR MD Jan 16, 2021 15:13
[2021-01-16] MEDS: ENOXAPARIN 40 MG/0.4 ML SYRINGE. SQ SCH (16:29)
[2021-01-16] MEDS: GABAPENTIN 300 MG CAPSULE. PO SCH (16:29)
[2021-01-16 19:00] VITALS: BP 113/76
[2021-01-16] MEDS: SENNOSIDES/DOCUSATE 8.6/50MG TABLET. PO SCH (20:35)
[2021-01-16 23:00] VITALS: BP 95/50
[2021-01-17] MEDS ORDERED: MAG HYDROX/ALUMINUM HYD/SIMETH 30 ML ORAL.SUSP PO PRN
[2021-01-17] MEDS ORDERED: FAMOTIDINE 20 MG TABLET. PO PRN
[2021-01-17] MEDS: TEMAZEPAM 15 MG CAPSULE PO PRN (00:10)
[2021-01-17] MEDS: AMINO AC 3%/ELECTROLYTE/GLYCER 1,000 ML IV SCH ×2 (02:32→20:46)
[2021-01-17 03:27] VITALS: BP 108/53
[2021-01-17] MEDS: PANTOPRAZOLE IV PUSH 40 MG VIAL. IVP SCH (05:09)
[2021-01-17] MEDS: PANTOPRAZOLE 40 MG TABLET.DR. PO SCH ×2 (05:20→08:27)
[2021-01-17 07:00] VITALS: BP 104/64
[2021-01-17] MEDS: BUDESONIDE 0.5 MG/2 ML NEBU. NEB SCH ×3 (07:59→21:27)
[2021-01-17] MEDS: IPRATRPIUM/ALBUTEROL 0.5/2.5MG 3 ML NEBU. NEB SCH ×5 (07:59→21:27)
[2021-01-17] MEDS: LISINOPRIL 5 MG TABLET. PO SCH (08:27)
[2021-01-17] MEDS: ASPIRIN CHEWABLE 81 MG TABLET. PO SCH (08:27)
[2021-01-17] MEDS: POLYETHYLENE GLYCOL 3350 17 GM PACKET. PO SCH (08:27)
[2021-01-17] MEDS: SERTRALINE 50 MG TABLET. PO SCH (08:28)
[2021-01-17] MEDS: POTASSIUM CHLORIDE 10 MEQ TABLET.ER. PO SCH (08:28)
[2021-01-17] MEDS: FUROSEMIDE 20 MG/2 ML VIAL. IVP SCH (08:28)
[2021-01-17] MEDS: PREGABALIN 75 MG CAPSULE PO SCH ×2 (08:29→20:42)
[2021-01-17] MEDS: BISACODYL 10 MG SUPP.RECT. PR SCH (08:29)
[2021-01-17] MEDS: METOPROLOL SUCC 24HR ER 25 MG TAB.ER.24H. PO SCH (08:29)
[2021-01-17 08:31] LABS: BASO # 0.1 x10^3/uL (0.0-0.2); BASO % 1 % (0-3); EOS # 0.1 x10^3/uL (0.0-0.7); EOS % 2 % (0-3); HEMATOCRIT 27.8 % (39.0-53.0); HEMOGLOBIN 8.3 g/dL (13.0-17.5); LYMPH # 0.4 x10^3/uL (1.0-4.8); LYMPH % 5 % (24-48); MEAN CORPUSCULAR HEMOGLOBIN 24 pg (25-35); MEAN CORPUSCULAR HGB CONC 30 g/dL (31-37); MEAN CORPUSCULAR VOLUME 82 fL (79-100); MONO # 0.6 x10^3/uL (0.0-1.1); MONO % 7 % (0-9); NEUT # 6.7 x10^3/uL (1.8-7.7); NEUT % 86 % (31-73); PLATELET COUNT 158 x10^3/uL (140-400); RED BLOOD COUNT 3.41 x10^6/uL (4.30-5.70); RED CELL DISTRIBUTION WIDTH 26.6 % (11.5-14.5); WHITE BLOOD COUNT 7.8 x10^3/uL (4.0-11.0)
[2021-01-17 08:58] LABS: ALBUMIN 2.2 g/dL (3.4-5.0); ALBUMIN/GLOBULIN RATIO 0.7 (1.0-1.7); CALCIUM 7.3 mg/dL (8.5-10.1); GFR 72.5; POTASSIUM 4.6 mmol/L (3.5-5.1); TOTAL BILIRUBIN 5.1 mg/dL (0.2-1.0); TOTAL PROTEIN 5.5 g/dL (6.4-8.2)
[2021-01-17] MEDS: IPRATROPIUM BROMIDE 0.06% NASAL SPRAY 15ML BOTTLE. NS SCH ×2 (09:00→20:48)
--- NOTE | 2021-01-17 09:43 | PDOC ---
[employer] PROGRESS NOTE Date of Service DOS: DATE: 01/17/21 TIME: 09:40 Chief Complaint Chief Complaint Assessment/Plan Acute Abd pain, fluid overload colon cancer, status post open right colectomy with liver biopsy on 01/04/2021 iron deficiency anemia, obese, BMI 32 weakness, debility depression, insomnia neuropathy Mild acute on chronic systolic CHF; appears compensated Echo 10/24 with LVEF 30-35%. 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 Anemia of chronic disease Persistent AFIB; v-paced with underlying AFIB, rate controlled Hypertension; controlled Hyperlipidemia Acute on chronic kidney injury, currently improved and stable COPD with home O2 use of about 4 L nasal cannula Left cephalic vein thrombus Odynophagia/dysphagia Pending video swallow Lovenox for DVT prophylaxis Protonix GI prophylaxis ADA diet Full code Discussed with RN and SW Disposition advancing diet as tolerated Surrogate decision maker is the History of Present Illness History of Present Illness 01/17/2021 Patient seen and evaluated, no acute events overnight. Afebrile. Currently breathing on 5 L nasal cannula. Had video swallow study 01/14 and recommended chintuck with all thin liquid swallows. Patient has been accepted at [facility], but will need to be able to maintain on 5 L oxygen or less. At baseline patient is on 4 L O2; will continue to wean O2. 01/14/2021 No acute events overnight. Patient saturation is 89% on 6 L nasal cannula and tolerating. No acute dyspneic episodes. Patient underwent video swallow and was able to tolerate thin liquids with chin tuck. Will attempt clear liquid diet today. Patient's chart, labs, images were reviewed and discussed with RN 01/13/2021 No acute events overnight. Patient needed to be put on Ventimask because he would desat down to the low to the low 80s. Currently saturating 93% on 15 L Ventimask. Video swallow unable to done while the mask. Will attempt to titra te down on O2 and try to keep on high flow nasal cannula. Continue of IV diuresis per cardiology. Patient's chart, labs, images were reviewed and discussed with RN 01/12/2021 No acute events overnight. Patient saturating well on 93% on 5 L nasal cannula. Patient is also -1.7 L with adequate urine output and gentle IV diuresis. Pending speech evaluation. Patient also continues to have hiccups which is not improved with Zofran or Compazine. Will attempt to try ice chips with some honey to improve gastric motility. If refractory will also try IV Thorazine. Per surgery, will advance diet as tolerated with ensures 3 times daily. Patient's chart, labs, images were reviewed and discussed with RN 01/11/2021 No acute events overnight. Patient continues to be on Ventimask at 15 L. Patient continues to be needing IV diuresis. Recommend continue with PT OT today. Patient's chart, labs, images were reviewed and discussed with RN 01/10/2021 No acute events overnight. Patient this morning had desaturation to 90s while on Venturi mask. Chest x-ray is ordered. Patient continues to be on IV diuretics. Pain is controlled and patient is passing flatus. We will continue with PPN. Patient's chart, labs, images were reviewed and discussed with RN 01/09, has small amount of stool output, on full liquid, poor PO intake, cont the PPN, needs rehab, he has some emotion today about nto improving much, I discussed at length that everything right now is going well and just takes time, no new complaint 01/08, change fluid from LR to PPN, cont other, pain OK, he reports stool, RN doesnt think so, cont current, if he stools, we can try liquid diet, try OOB to chair 4 L nasal cannula O2. Afebrile. Sit up in chair. Pain is still intermittent. Even with ice chips he is getting some esophageal spasm and pain. Not passing flatus currently. Feeling well overall. Hb 7.9, CR 1.2. Okay to transfer out of ICU. 01/06: On 15L facemask O2, up from home 4L. He is feeling well, asking to eat and drink. Still using his CARBONIZER. IV protonix today 01/05: Seen in ICU. On facemask O2. He actually has bowel sounds is reasonably controlled abdominal pain with CARBONIZER. His only complaint is dry mouth. 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 Transferred to ICU thereafter. 01/02: Patient seen and examined, sitting up and talkative. He has no new complaints 01/01: Issues swallowing liquids, ordering bedside swallow. He did take a drink and have a coughing fit during our conversation, says this happens frequently 12/31: Patient seen and examined. Discussed surgery date push back 12/30: Discussed CRC prognosis and he wanted a second opinion on the prognosis. Called Dr. Cullen who is willing to complete surgery if patient decides Vitals/I&O Vitals/I&O: Vital Signs Date Time Temp Pulse Resp B/P (MAP) Pulse Ox O2 Delivery O2 Flow Rate FiO2 01/17/21 08:29 70 104/64 01/17/21 08:00 96 Nasal Cannula 5.0 01/17/21 07:00 96.5 20 96.5 I & O 01/16/21 01/16/21 01/17/21 15:00 23:00 07:00 Intake Total 1480 ml 240 ml 200 ml Output Total 450 ml 400 ml Balance 1480 ml -210 ml -200 ml Physical Exam General: Alert, Oriented X3, Cooperative, No acute distress Heart: Regular rate Lungs: Clear Abdomen: Soft, No tenderness Extremities: No clubbing, No cyanosis, Other (Mild edema) Skin: No rashes, Other (Bruising on arms) Labs Labs: Laboratory Tests Test 01/17/21 07:25 White Blood Count 7.8 x10^3/uL (4.0-11.0) Red Blood Count 3.41 x10^6/uL (4.30-5.70) Hemoglobin 8.3 g/dL (13.0-17.5) Hematocrit 27.8 % (39.0-53.0) Mean Corpuscular Volume 82 fL (79-100) Mean Corpuscular Hemoglobin 24 pg (25-35) Mean Corpuscular Hemoglobin Concent 30 g/dL (31-37) Red Cell Distribution Width 26.6 % (11.5-14.5) Platelet Count 158 x10^3/uL (140-400) Neutrophils (%) (Auto) 86 % (31-73) Lymphocytes (%) (Auto) 5 % (24-48) Monocytes (%) (Auto) 7 % (0-9) Eosinophils (%) (Auto) 2 % (0-3) Basophils (%) (Auto) 1 % (0-3) Neutrophils # (Auto) 6.7 x10^3/uL (1.8-7.7) Lymphocytes # (Auto) 0.4 x10^3/uL (1.0-4.8) Monocytes # (Auto) 0.6 x10^3/uL (0.0-1.1) Eosinophils # (Auto) 0.1 x10^3/uL (0.0-0.7) Basophils # (Auto) 0.1 x10^3/uL (0.0-0.2) Sodium Level 133 mmol/L (136-145) Potassium Level 4.6 mmol/L (3.5-5.1) Chloride Level 100 mmol/L (98-107) Carbon Dioxide Level 24 mmol/L (21-32) Anion Gap 9 (6-14) Blood Urea Nitrogen 26 mg/dL (8-26) Creatinine 1.0 mg/dL (0.7-1.3) Estimated GFR (Cockcroft-Gault) 72.5 BUN/Creatinine Ratio 26 (6-20) Glucose Level 97 mg/dL (70-99) Calcium Level 7.3 mg/dL (8.5-10.1) Total Bilirubin 5.1 mg/dL (0.2-1.0) Aspartate Amino Transf (AST/SGOT) 45 U/L (15-37) Alanine Aminotransferase (ALT/SGPT) 49 U/L (16-63) Alkaline Phosphatase 185 U/L (46-116) Total Protein 5.5 g/dL (6.4-8.2) Albumin 2.2 g/dL (3.4-5.0) Albumin/Globulin Ratio 0.7 (1.0-1.7) Assessment and Plan Assessmemt and Plan Problems Medical Problems: (1) Abdominal pain Status: Acute Comment Review of Relevant I have reviewed the following items jay (where applicable) has been applied. Medications: Current Medications Medications (Trade) Dose Ordered Sig/Minerva Route PRN Reason Start Time Stop Time Status Last Admin Dose Admin Famotidine (Pepcid) 20 mg BIDAFTMEAL PRN PRN PO STOMACH PAIN 01/17/21 00:00 01/17/21 00:05 Justifications for Admission Other Justification NIGEL LEON MD Jan 17, 2021 09:43
--- NOTE | 2021-01-17 10:15 | PDOC ---
PULMONARY PROGRESS NOTES DATE: 01/17/21 TIME: 10:14 Subjective Diet has been advanced patient with no new complaints Vitals Vital Signs Date Time Temp Pulse Resp B/P (MAP) Pulse Ox O2 Delivery O2 Flow Rate FiO2 01/17/21 08:29 70 104/64 01/17/21 08:00 96 Nasal Cannula 5.0 01/17/21 07:00 96.5 20 96.5 ROS: No Nausea, No Chest Pain, No Increase Cough General: Alert, No acute distress Lungs: Clear Cardiovascular: S1, S2 Abdomen: Soft, Non-tender, Other (distended ) Neuro Exam: Alert Extremities: Other (Edema) Skin: Warm Labs Laboratory Tests Test 01/16/21 03:30 01/17/21 07:25 White Blood Count 6.0 x10^3/uL (4.0-11.0) 7.8 x10^3/uL (4.0-11.0) Red Blood Count 3.16 x10^6/uL (4.30-5.70) 3.41 x10^6/uL (4.30-5.70) Hemoglobin 7.8 g/dL (13.0-17.5) 8.3 g/dL (13.0-17.5) Hematocrit 25.8 % (39.0-53.0) 27.8 % (39.0-53.0) Mean Corpuscular Volume 82 fL (79-100) 82 fL (79-100) Mean Corpuscular Hemoglobin 25 pg (25-35) 24 pg (25-35) Mean Corpuscular Hemoglobin Concent 30 g/dL (31-37) 30 g/dL (31-37) Red Cell Distribution Width 26.6 % (11.5-14.5) 26.6 % (11.5-14.5) Platelet Count 136 x10^3/uL (140-400) 158 x10^3/uL (140-400) Neutrophils (%) (Auto) 83 % (31-73) 86 % (31-73) Lymphocytes (%) (Auto) 7 % (24-48) 5 % (24-48) Monocytes (%) (Auto) 7 % (0-9) 7 % (0-9) Eosinophils (%) (Auto) 3 % (0-3) 2 % (0-3) Basophils (%) (Auto) 0 % (0-3) 1 % (0-3) Neutrophils # (Auto) 5.0 x10^3/uL (1.8-7.7) 6.7 x10^3/uL (1.8-7.7) Lymphocytes # (Auto) 0.4 x10^3/uL (1.0-4.8) 0.4 x10^3/uL (1.0-4.8) Monocytes # (Auto) 0.4 x10^3/uL (0.0-1.1) 0.6 x10^3/uL (0.0-1.1) Eosinophils # (Auto) 0.1 x10^3/uL (0.0-0.7) 0.1 x10^3/uL (0.0-0.7) Basophils # (Auto) 0.0 x10^3/uL (0.0-0.2) 0.1 x10^3/uL (0.0-0.2) Segmented Neutrophils % 88 % (35-66) Band Neutrophils % 2 % (0-9) Lymphocytes % 3 % (24-48) Monocytes % 4 % (0-10) Eosinophils % 2 % (0-5) Basophils % 1 % (0-3) Platelet Estimate Decreased (ADEQUATE) Large Platelets Present Hypochromasia Present Anisocytosis Present Ovalocytes Occ Sodium Level 135 mmol/L (136-145) 133 mmol/L (136-145) Potassium Level 4.3 mmol/L (3.5-5.1) 4.6 mmol/L (3.5-5.1) Chloride Level 102 mmol/L (98-107) 100 mmol/L (98-107) Carbon Dioxide Level 27 mmol/L (21-32) 24 mmol/L (21-32) Anion Gap 6 (6-14) 9 (6-14) Blood Urea Nitrogen 27 mg/dL (8-26) 26 mg/dL (8-26) Creatinine 0.9 mg/dL (0.7-1.3) 1.0 mg/dL (0.7-1.3) Estimated GFR (Cockcroft-Gault) 81.8 72.5 BUN/Creatinine Ratio 30 (6-20) 26 (6-20) Glucose Level 87 mg/dL (70-99) 97 mg/dL (70-99) Calcium Level 7.2 mg/dL (8.5-10.1) 7.3 mg/dL (8.5-10.1) Total Bilirubin 5.0 mg/dL (0.2-1.0) 5.1 mg/dL (0.2-1.0) Aspartate Amino Transf (AST/SGOT) 43 U/L (15-37) 45 U/L (15-37) Alanine Aminotransferase (ALT/SGPT) 49 U/L (16-63) 49 U/L (16-63) Alkaline Phosphatase 149 U/L (46-116) 185 U/L (46-116) Total Protein 5.1 g/dL (6.4-8.2) 5.5 g/dL (6.4-8.2) Albumin 2.0 g/dL (3.4-5.0) 2.2 g/dL (3.4-5.0) Albumin/Globulin Ratio 0.6 (1.0-1.7) 0.7 (1.0-1.7) Laboratory Tests Test 01/17/21 07:25 White Blood Count 7.8 x10^3/uL (4.0-11.0) Red Blood Count 3.41 x10^6/uL (4.30-5.70) Hemoglobin 8.3 g/dL (13.0-17.5) Hematocrit 27.8 % (39.0-53.0) Mean Corpuscular Volume 82 fL (79-100) Mean Corpuscular Hemoglobin 24 pg (25-35) Mean Corpuscular Hemoglobin Concent 30 g/dL (31-37) Red Cell Distribution Width 26.6 % (11.5-14.5) Platelet Count 158 x10^3/uL (140-400) Neutrophils (%) (Auto) 86 % (31-73) Lymphocytes (%) (Auto) 5 % (24-48) Monocytes (%) (Auto) 7 % (0-9) Eosinophils (%) (Auto) 2 % (0-3) Basophils (%) (Auto) 1 % (0-3) Neutrophils # (Auto) 6.7 x10^3/uL (1.8-7.7) Lymphocytes # (Auto) 0.4 x10^3/uL (1.0-4.8) Monocytes # (Auto) 0.6 x10^3/uL (0.0-1.1) Eosinophils # (Auto) 0.1 x10^3/uL (0.0-0.7) Basophils # (Auto) 0.1 x10^3/uL (0.0-0.2) Sodium Level 133 mmol/L (136-145) Potassium Level 4.6 mmol/L (3.5-5.1) Chloride Level 100 mmol/L (98-107) Carbon Dioxide Level 24 mmol/L (21-32) Anion Gap 9 (6-14) Blood Urea Nitrogen 26 mg/dL (8-26) Creatinine 1.0 mg/dL (0.7-1.3) Estimated GFR (Cockcroft-Gault) 72.5 BUN/Creatinine Ratio 26 (6-20) Glucose Level 97 mg/dL (70-99) Calcium Level 7.3 mg/dL (8.5-10.1) Total Bilirubin 5.1 mg/dL (0.2-1.0) Aspartate Amino Transf (AST/SGOT) 45 U/L (15-37) Alanine Aminotransferase (ALT/SGPT) 49 U/L (16-63) Alkaline Phosphatase 185 U/L (46-116) Total Protein 5.5 g/dL (6.4-8.2) Albumin 2.2 g/dL (3.4-5.0) Albumin/Globulin Ratio 0.7 (1.0-1.7) Medications Active Scripts Medications Dose Route/Sig Max Daily Dose Days Date Category Sertraline Hcl 50 Mg Tablet 50 Mg PO DAILY 12/29/20 Reported Budesonide 0.5 Mg/2 Ml Ampul.neb 1 Vial NEB BID 12/29/20 Reported Tudorza Pressair (Aclidinium [place]) 400 Mcg Aer.pow.ba 1 Puff IH BID 12/29/20 Reported Ipratropium [place] 0.2 Mg/1 Ml Solution 1 Vial NEB QID 12/29/20 Reported Klor-Con 10 (Potassium Chloride) 10 Meq Tablet.er 1 Tab PO DAILY 30 12/29/20 Reported Lyrica (Pregabalin) 75 Mg Capsule 1 Cap PO BID 12/29/20 Reported Lisinopril 5 Mg Tablet 5 Mg PO DAILY 10/17/20 Rx Senna Plus Tablet (Sennosides/Docusate Sodium) 1 Each Tablet 2 Tab PO QHS 14 10/01/20 Rx Ipratropium [place] 15 Ml [place] 2 Sprays NS BID 07/08/20 Reported Metoprolol Succinate ( Xl ) (Metoprolol Succinate) 25 Mg Tab.er.24h 1 Tab PO DAILY 30 07/08/20 Reported Pantoprazole Sodium 40 Mg Tablet.dr 1 Tab PO DAILY 30 07/08/20 Reported Gabapentin (Gabapentin) 300 Mg Capsule 300 Mg PO DAILYWSUP 06/30/19 Reported Aspirin 81 Mg Tab.chew 81 Mg PO DAILY 06/30/19 Reported Furosemide 40 Mg Tablet 40 Mg PO DAILY MDD 1 10/19/18 Rx Lovastatin 40 Mg Tablet 1 Tab PO DAILY 12/14/14 Reported Impression . IMPRESSION: 1. Chronic respiratory failure, multifactorial secondary to severe chronic obstructive pulmonary disease, coronary artery disease, previous coronary artery bypass grafting and deconditioning. 2. Cardiomyopathy, status post coronary artery bypass grafting. 3. Chronic atrial fibrillation. 4. Recent diagnosis of colon cancer. S/P open right colon resection, liver biopsy, see path report 5. Ascites 6. 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 Dysphagia, improving Diagnosis: A. Distal ileum, cecum, ascending colon, and proximal transverse colon with attached mesocolon and portion of omentum, extended right colon resection: - Invasive colorectal adenocarcinoma, moderately to poorly differentiated, forming a nearly circumferential, centrally ulcerated tumor mass measuring up to 5.5 cm in greatest dimension, with tumor invasion through muscularis propria into subserosa/mesocolon. - Focal lymphovascular tumor invasion identified. - Fourteen mesocolic lymph nodes negative for tumor (0/14). - Proximal (distal ileum), distal (transverse colon), and mesocolic margins of resection negative for tumor. - Omentum negative for tumor. - Adiposity of ileocecal valve. - Fibrofatty obliteration of distal appendiceal lumen. - Melanosis coli. . B. Liver biopsy: - Metastatic adenocarcinoma, consistent with colorectal origin. IMPRESSION: 1. No evidence of deep venous thrombosis. 2. Occlusive thrombus in the superficial left upper extremity venous system (cephalic vein). Plan . Updated 01/17 Patient diet has been advanced .no respiratory distress PT OT Up in chair Social service working on disposition Aggressive PT and OT Patient instructed to sit up in a chair all day Continue aggressive pulmonary hygiene Discussed with RN FELIBERTO RAMOS MD Jan 17, 2021 10:15
[2021-01-17 11:00] VITALS: BP 100/57
[2021-01-17] MEDS: IV NORMAL SALINE 1000ML BAG 1,000 ML IV SCH (11:46)
--- NOTE | 2021-01-17 12:52 | PDOC ---
SURGICAL PROGRESS NOTE DATE: 01/17/21 TIME: 12:51 Subjective eating ok bowels working edema main complaint Vital Signs Vital Signs Date Time Temp Pulse Resp B/P (MAP) Pulse Ox O2 Delivery O2 Flow Rate FiO2 01/17/21 11:43 96 Nasal Cannula 5.0 01/17/21 11:00 97.1 68 20 100/57 (71) 97.1 I&O Intake and Output 01/17/21 07:00 Intake Total 1920 ml Output Total 850 ml Balance 1070 ml Intake Oral 920 ml IV Total 1000 ml Output Urine Total 850 ml # Voids 2 # Bowel Movements 1 General: Alert, Oriented X3, Cooperative Abdomen: Soft, Other (incision intact) Labs Laboratory Tests Test 01/16/21 03:30 01/17/21 07:25 White Blood Count 6.0 x10^3/uL (4.0-11.0) 7.8 x10^3/uL (4.0-11.0) Red Blood Count 3.16 x10^6/uL (4.30-5.70) 3.41 x10^6/uL (4.30-5.70) Hemoglobin 7.8 g/dL (13.0-17.5) 8.3 g/dL (13.0-17.5) Hematocrit 25.8 % (39.0-53.0) 27.8 % (39.0-53.0) Mean Corpuscular Volume 82 fL (79-100) 82 fL (79-100) Mean Corpuscular Hemoglobin 25 pg (25-35) 24 pg (25-35) Mean Corpuscular Hemoglobin Concent 30 g/dL (31-37) 30 g/dL (31-37) Red Cell Distribution Width 26.6 % (11.5-14.5) 26.6 % (11.5-14.5) Platelet Count 136 x10^3/uL (140-400) 158 x10^3/uL (140-400) Neutrophils (%) (Auto) 83 % (31-73) 86 % (31-73) Lymphocytes (%) (Auto) 7 % (24-48) 5 % (24-48) Monocytes (%) (Auto) 7 % (0-9) 7 % (0-9) Eosinophils (%) (Auto) 3 % (0-3) 2 % (0-3) Basophils (%) (Auto) 0 % (0-3) 1 % (0-3) Neutrophils # (Auto) 5.0 x10^3/uL (1.8-7.7) 6.7 x10^3/uL (1.8-7.7) Lymphocytes # (Auto) 0.4 x10^3/uL (1.0-4.8) 0.4 x10^3/uL (1.0-4.8) Monocytes # (Auto) 0.4 x10^3/uL (0.0-1.1) 0.6 x10^3/uL (0.0-1.1) Eosinophils # (Auto) 0.1 x10^3/uL (0.0-0.7) 0.1 x10^3/uL (0.0-0.7) Basophils # (Auto) 0.0 x10^3/uL (0.0-0.2) 0.1 x10^3/uL (0.0-0.2) Segmented Neutrophils % 88 % (35-66) Band Neutrophils % 2 % (0-9) Lymphocytes % 3 % (24-48) Monocytes % 4 % (0-10) Eosinophils % 2 % (0-5) Basophils % 1 % (0-3) Platelet Estimate Decreased (ADEQUATE) Large Platelets Present Hypochromasia Present Anisocytosis Present Ovalocytes Occ Sodium Level 135 mmol/L (136-145) 133 mmol/L (136-145) Potassium Level 4.3 mmol/L (3.5-5.1) 4.6 mmol/L (3.5-5.1) Chloride Level 102 mmol/L (98-107) 100 mmol/L (98-107) Carbon Dioxide Level 27 mmol/L (21-32) 24 mmol/L (21-32) Anion Gap 6 (6-14) 9 (6-14) Blood Urea Nitrogen 27 mg/dL (8-26) 26 mg/dL (8-26) Creatinine 0.9 mg/dL (0.7-1.3) 1.0 mg/dL (0.7-1.3) Estimated GFR (Cockcroft-Gault) 81.8 72.5 BUN/Creatinine Ratio 30 (6-20) 26 (6-20) Glucose Level 87 mg/dL (70-99) 97 mg/dL (70-99) Calcium Level 7.2 mg/dL (8.5-10.1) 7.3 mg/dL (8.5-10.1) Total Bilirubin 5.0 mg/dL (0.2-1.0) 5.1 mg/dL (0.2-1.0) Aspartate Amino Transf (AST/SGOT) 43 U/L (15-37) 45 U/L (15-37) Alanine Aminotransferase (ALT/SGPT) 49 U/L (16-63) 49 U/L (16-63) Alkaline Phosphatase 149 U/L (46-116) 185 U/L (46-116) Total Protein 5.1 g/dL (6.4-8.2) 5.5 g/dL (6.4-8.2) Albumin 2.0 g/dL (3.4-5.0) 2.2 g/dL (3.4-5.0) Albumin/Globulin Ratio 0.6 (1.0-1.7) 0.7 (1.0-1.7) Laboratory Tests Test 01/17/21 07:25 White Blood Count 7.8 x10^3/uL (4.0-11.0) Red Blood Count 3.41 x10^6/uL (4.30-5.70) Hemoglobin 8.3 g/dL (13.0-17.5) Hematocrit 27.8 % (39.0-53.0) Mean Corpuscular Volume 82 fL (79-100) Mean Corpuscular Hemoglobin 24 pg (25-35) Mean Corpuscular Hemoglobin Concent 30 g/dL (31-37) Red Cell Distribution Width 26.6 % (11.5-14.5) Platelet Count 158 x10^3/uL (140-400) Neutrophils (%) (Auto) 86 % (31-73) Lymphocytes (%) (Auto) 5 % (24-48) Monocytes (%) (Auto) 7 % (0-9) Eosinophils (%) (Auto) 2 % (0-3) Basophils (%) (Auto) 1 % (0-3) Neutrophils # (Auto) 6.7 x10^3/uL (1.8-7.7) Lymphocytes # (Auto) 0.4 x10^3/uL (1.0-4.8) Monocytes # (Auto) 0.6 x10^3/uL (0.0-1.1) Eosinophils # (Auto) 0.1 x10^3/uL (0.0-0.7) Basophils # (Auto) 0.1 x10^3/uL (0.0-0.2) Sodium Level 133 mmol/L (136-145) Potassium Level 4.6 mmol/L (3.5-5.1) Chloride Level 100 mmol/L (98-107) Carbon Dioxide Level 24 mmol/L (21-32) Anion Gap 9 (6-14) Blood Urea Nitrogen 26 mg/dL (8-26) Creatinine 1.0 mg/dL (0.7-1.3) Estimated GFR (Cockcroft-Gault) 72.5 BUN/Creatinine Ratio 26 (6-20) Glucose Level 97 mg/dL (70-99) Calcium Level 7.3 mg/dL (8.5-10.1) Total Bilirubin 5.1 mg/dL (0.2-1.0) Aspartate Amino Transf (AST/SGOT) 45 U/L (15-37) Alanine Aminotransferase (ALT/SGPT) 49 U/L (16-63) Alkaline Phosphatase 185 U/L (46-116) Total Protein 5.5 g/dL (6.4-8.2) Albumin 2.2 g/dL (3.4-5.0) Albumin/Globulin Ratio 0.7 (1.0-1.7) Problem List Problems Medical Problems: (1) Abdominal pain Status: Acute Assessment/Plan supportive care Justicifation of Admission Dx: Justifications for Admission: Justification of Admission Dx: Yes Respiratory Failure: Severe Resp Distress EMEKA COLON OFFICE CORRESPONDENT Jan 17, 2021 12:52
[2021-01-17 15:00] VITALS: BP 105/56
[2021-01-17] MEDS: GABAPENTIN 300 MG CAPSULE. PO SCH (16:59)
[2021-01-17] MEDS: ENOXAPARIN 40 MG/0.4 ML SYRINGE. SQ SCH (16:59)
[2021-01-17 19:00] VITALS: BP 98/61
[2021-01-17] MEDS: SENNOSIDES/DOCUSATE 8.6/50MG TABLET. PO SCH (20:41)
[2021-01-17] MEDS: OXYMETAZOLINE 0.05% NASAL SPRAY 30ML BOTTLE. NS PRN (20:46)
[2021-01-17 23:00] VITALS: BP 110/59
[2021-01-18 03:00] VITALS: BP 94/53
[2021-01-18 06:56] LABS: BASO # 0.1 x10^3/uL (0.0-0.2); BASO % 1 % (0-3); EOS # 0.2 x10^3/uL (0.0-0.7); EOS % 2 % (0-3); HEMATOCRIT 26.7 % (39.0-53.0); HEMOGLOBIN 8.2 g/dL (13.0-17.5); LYMPH # 0.5 x10^3/uL (1.0-4.8); LYMPH % 6 % (24-48); MEAN CORPUSCULAR HEMOGLOBIN 25 pg (25-35); MEAN CORPUSCULAR HGB CONC 31 g/dL (31-37); MEAN CORPUSCULAR VOLUME 81 fL (79-100); MONO # 0.6 x10^3/uL (0.0-1.1); MONO % 9 % (0-9); NEUT # 6.2 x10^3/uL (1.8-7.7); NEUT % 82 % (31-73); PLATELET COUNT 156 x10^3/uL (140-400); RED BLOOD COUNT 3.32 x10^6/uL (4.30-5.70); RED CELL DISTRIBUTION WIDTH 26.5 % (11.5-14.5); WHITE BLOOD COUNT 7.5 x10^3/uL (4.0-11.0)
[2021-01-18 07:00] VITALS: BP 102/59
[2021-01-18 07:12] LABS: GFR 72.5; POTASSIUM 4.8 mmol/L (3.5-5.1)
[2021-01-18] MEDS: BUDESONIDE 0.5 MG/2 ML NEBU. NEB SCH ×2 (07:29→21:09)
[2021-01-18] MEDS: IPRATRPIUM/ALBUTEROL 0.5/2.5MG 3 ML NEBU. NEB SCH ×4 (07:29→21:09)
[2021-01-18] MEDS: POTASSIUM CHLORIDE 10 MEQ TABLET.ER. PO SCH (08:10)
--- NOTE | 2021-01-18 08:30 | PDOC ---
[employer] PROGRESS NOTE Date of Service DOS: DATE: 01/18/21 TIME: 08:20 Chief Complaint Chief Complaint Assessment/Plan Acute Abd pain, fluid overload colon cancer, status post open right colectomy with liver biopsy on 01/04/2021 iron deficiency anemia, obese, BMI 32 weakness, debility depression, insomnia neuropathy Mild acute on chronic systolic CHF; appears compensated Echo 10/24 with LVEF 30-35%. 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 Anemia of chronic disease Persistent AFIB; v-paced with underlying AFIB, rate controlled Hypertension; controlled Hyperlipidemia Acute on chronic kidney injury, currently improved and stable COPD with home O2 use of about 4 L nasal cannula Left cephalic vein thrombus Odynophagia/dysphagia Pending video swallow Lovenox for DVT prophylaxis Protonix GI prophylaxis ADA diet Full code Discussed with RN and SW Disposition advancing diet as tolerated Surrogate decision maker is the History of Present Illness History of Present Illness 01/18/2021 Afebrile. Intermittently breathing on 5 - 6 L nasal cannula. He has been accepted at [facility] as well as his O2 requirement stays at or below 5 L nasal cannula. At baseline requires 4 L O2, and usually requires more O2 with exertion. Continue to wean O2. Will repeat chest x-ray to confirm resolution of right lower lobe nodular infiltrate seen on 01/10/2021. He will need repeat COVID-19 swab for placement. 01/17/2021 Patient seen and evaluated, no acute events overnight. Afebrile. Currently breathing on 5 L nasal cannula. Had video swallow study 01/14 and recommended chintuck with all thin liquid swallows. Patient has been accepted at [facility], but will need to be able to maintain on 5 L oxygen or less. At baseline patient is on 4 L O2; will continue to wean O2. 01/14/2021 No acute events overnight. Patient saturation is 89% on 6 L nasal cannula and tolerating. No acute dyspneic episodes. Patient underwent video swallow and was able to tolerate thin liquids with chin tuck. Will attempt clear liquid diet today. Patient's chart, labs, images were reviewed and discussed with RN 01/13/2021 No acute events overnight. Patient needed to be put on Ventimask because he would desat down to the low to the low 80s. Currently saturating 93% on 15 L Ventimask. Video swallow unable to done while the mask. Will attempt to titrate down on O2 and try to keep on high flow nasal cannula. Continue of IV diuresis per cardiology. Patient's chart, labs, images were reviewed and discussed with RN 01/12/2021 No acute events overnight. Patient saturating well on 93% on 5 L nasal cannula. Patient is also -1.7 L with adequate urine output and gentle IV diuresis. Pen ding speech evaluation. Patient also continues to have hiccups which is not improved with Zofran or Compazine. Will attempt to try ice chips with some honey to improve gastric motility. If refractory will also try IV Thorazine. Per surgery, will advance diet as tolerated with ensures 3 times daily. Patient's chart, labs, images were reviewed and discussed with RN 01/11/2021 No acute events overnight. Patient continues to be on Ventimask at 15 L. Patient continues to be needing IV diuresis. Recommend continue with PT OT today. Patient's chart, labs, images were reviewed and discussed with RN 01/10/2021 No acute events overnight. Patient this morning had desaturation to 90s while on Venturi mask. Chest x-ray is ordered. Patient continues to be on IV diuretics. Pain is controlled and patient is passing flatus. We will continue with PPN. Patient's chart, labs, images were reviewed and discussed with RN 01/09, has small amount of stool output, on full liquid, poor PO intake, cont the PPN, needs rehab, he has some emotion today about nto improving much, I discussed at length that everything right now is going well and just takes time, no new complaint 01/08, change fluid from LR to PPN, cont other, pain OK, he reports stool, RN doesnt think so, cont current, if he stools, we can try liquid diet, try OOB to chair 4 L nasal cannula O2. Afebrile. Sit up in chair. Pain is still intermittent. Even with ice chips he is getting some esophageal spasm and pain. Not passing flatus currently. Feeling well overall. Hb 7.9, CR 1.2. Okay to transfer out of ICU. 01/06: On 15L facemask O2, up from home 4L. He is feeling well, asking to eat and drink. Still using his WIRE WALKER. IV protonix today 01/05: Seen in ICU. On facemask O2. He actually has bowel sounds is reasonably controlled abdominal pain with WIRE WALKER. His only complaint is dry mouth. 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 Transferred to ICU thereafter. 01/02: Patient seen and examined, sitting up and talkative. He has no new complaints 01/01: Issues swallowing liquids, ordering bedside swallow. He did take a drink and have a coughing fit during our conversation, says this happens frequently 12/31: Patient seen and examined. Discussed surgery date push back 12/30: Discussed CRC prognosis and he wanted a second opinion on the prognosis. Called Dr. Cullen who is willing to complete surgery if patient decides Vitals/I&O Vitals/I&O: Vital Signs Date Time Temp Pulse Resp B/P (MAP) Pulse Ox O2 Delivery O2 Flow Rate FiO2 01/18/21 07:00 95.1 70 20 102/59 (73) 94 Nasal Cannula 6.0 95.1 I & O 01/17/21 01/17/21 01/18/21 15:00 23:00 07:00 Output Total 300 ml 200 ml 100 ml Balance -300 ml -200 ml -100 ml Physical Exam General: Alert, Oriented X3, Cooperative Heart: Regular rate Lungs: Clear Abdomen: Soft, Other (incision intact) Extremities: No clubbing, No cyanosis, Other (Mild edema) Skin: No rashes, Other (Bruising on arms) Labs Labs: Laboratory Tests Test 01/18/21 06:20 White Blood Count 7.5 x10^3/uL (4.0-11.0) Red Blood Count 3.32 x10^6/uL (4.30-5.70) Hemoglobin 8.2 g/dL (13.0-17.5) Hematocrit 26.7 % (39.0-53.0) Mean Corpuscular Volume 81 fL (79-100) Mean Corpuscular Hemoglobin 25 pg (25-35) Mean Corpuscular Hemoglobin Concent 31 g/dL (31-37) Red Cell Distribution Width 26.5 % (11.5-14.5) Platelet Count 156 x10^3/uL (140-400) Neutrophils (%) (Auto) 82 % (31-73) Lymphocytes (%) (Auto) 6 % (24-48) Monocytes (%) (Auto) 9 % (0-9) Eosinophils (%) (Auto) 2 % (0-3) Basophils (%) (Auto) 1 % (0-3) Neutrophils # (Auto) 6.2 x10^3/uL (1.8-7.7) Lymphocytes # (Auto) 0.5 x10^3/uL (1.0-4.8) Monocytes # (Auto) 0.6 x10^3/uL (0.0-1.1) Eosinophils # (Auto) 0.2 x10^3/uL (0.0-0.7) Basophils # (Auto) 0.1 x10^3/uL (0.0-0.2) Sodium Level 132 mmol/L (136-145) Potassium Level 4.8 mmol/L (3.5-5.1) Chloride Level 100 mmol/L (98-107) Carbon Dioxide Level 25 mmol/L (21-32) Anion Gap 7 (6-14) Blood Urea Nitrogen 26 mg/dL (8-26) Creatinine 1.0 mg/dL (0.7-1.3) Estimated GFR (Cockcroft-Gault) 72.5 Glucose Level 92 mg/dL (70-99) Calcium Level 7.0 mg/dL (8.5-10.1) Assessment and Plan Assessmemt and Plan Problems Medical Problems: (1) Abdominal pain Status: Acute Comment Review of Relevant I have reviewed the following items jay (where applicable) has been applied. Justifications for Admission Other Justification NIGEL LEON MD Jan 18, 2021 08:30
[2021-01-18] MEDS: POLYETHYLENE GLYCOL 3350 17 GM PACKET. PO SCH (09:00)
[2021-01-18] MEDS: BISACODYL 10 MG SUPP.RECT. PR SCH (09:00)
--- NOTE | 2021-01-18 09:52 | PDOC ---
SURGICAL PROGRESS NOTE DATE: 01/18/21 TIME: 09:52 Subjective sleeping, did not awaken him stable surgically Vital Signs Vital Signs Date Time Temp Pulse Resp B/P (MAP) Pulse Ox O2 Delivery O2 Flow Rate FiO2 01/18/21 08:21 Nasal Cannula 6.0 01/18/21 07:00 95.1 70 20 102/59 (73) 94 95.1 I&O Intake and Output 01/18/21 07:00 Output Total 600 ml Balance -600 ml Output Urine Total 600 ml # Bowel Movements 1 Labs Laboratory Tests Test 01/17/21 07:25 01/18/21 06:20 White Blood Count 7.8 x10^3/uL (4.0-11.0) 7.5 x10^3/uL (4.0-11.0) Red Blood Count 3.41 x10^6/uL (4.30-5.70) 3.32 x10^6/uL (4.30-5.70) Hemoglobin 8.3 g/dL (13.0-17.5) 8.2 g/dL (13.0-17.5) Hematocrit 27.8 % (39.0-53.0) 26.7 % (39.0-53.0) Mean Corpuscular Volume 82 fL (79-100) 81 fL (79-100) Mean Corpuscular Hemoglobin 24 pg (25-35) 25 pg (25-35) Mean Corpuscular Hemoglobin Concent 30 g/dL (31-37) 31 g/dL (31-37) Red Cell Distribution Width 26.6 % (11.5-14.5) 26.5 % (11.5-14.5) Platelet Count 158 x10^3/uL (140-400) 156 x10^3/uL (140-400) Neutrophils (%) (Auto) 86 % (31-73) 82 % (31-73) Lymphocytes (%) (Auto) 5 % (24-48) 6 % (24-48) Monocytes (%) (Auto) 7 % (0-9) 9 % (0-9) Eosinophils (%) (Auto) 2 % (0-3) 2 % (0-3) Basophils (%) (Auto) 1 % (0-3) 1 % (0-3) Neutrophils # (Auto) 6.7 x10^3/uL (1.8-7.7) 6.2 x10^3/uL (1.8-7.7) Lymphocytes # (Auto) 0.4 x10^3/uL (1.0-4.8) 0.5 x10^3/uL (1.0-4.8) Monocytes # (Auto) 0.6 x10^3/uL (0.0-1.1) 0.6 x10^3/uL (0.0-1.1) Eosinophils # (Auto) 0.1 x10^3/uL (0.0-0.7) 0.2 x10^3/uL (0.0-0.7) Basophils # (Auto) 0.1 x10^3/uL (0.0-0.2) 0.1 x10^3/uL (0.0-0.2) Sodium Level 133 mmol/L (136-145) 132 mmol/L (136-145) Potassium Level 4.6 mmol/L (3.5-5.1) 4.8 mmol/L (3.5-5.1) Chloride Level 100 mmol/L (98-107) 100 mmol/L (98-107) Carbon Dioxide Level 24 mmol/L (21-32) 25 mmol/L (21-32) Anion Gap 9 (6-14) 7 (6-14) Blood Urea Nitrogen 26 mg/dL (8-26) 26 mg/dL (8-26) Creatinine 1.0 mg/dL (0.7-1.3) 1.0 mg/dL (0.7-1.3) Estimated GFR (Cockcroft-Gault) 72.5 72.5 BUN/Creatinine Ratio 26 (6-20) Glucose Level 97 mg/dL (70-99) 92 mg/dL (70-99) Calcium Level 7.3 mg/dL (8.5-10.1) 7.0 mg/dL (8.5-10.1) Total Bilirubin 5.1 mg/dL (0.2-1.0) Aspartate Amino Transf (AST/SGOT) 45 U/L (15-37) Alanine Aminotransferase (ALT/SGPT) 49 U/L (16-63) Alkaline Phosphatase 185 U/L (46-116) Total Protein 5.5 g/dL (6.4-8.2) Albumin 2.2 g/dL (3.4-5.0) Albumin/Globulin Ratio 0.7 (1.0-1.7) Laboratory Tests Test 01/18/21 06:20 White Blood Count 7.5 x10^3/uL (4.0-11.0) Red Blood Count 3.32 x10^6/uL (4.30-5.70) Hemoglobin 8.2 g/dL (13.0-17.5) Hematocrit 26.7 % (39.0-53.0) Mean Corpuscular Volume 81 fL (79-100) Mean Corpuscular Hemoglobin 25 pg (25-35) Mean Corpuscular Hemoglobin Concent 31 g/dL (31-37) Red Cell Distribution Width 26.5 % (11.5-14.5) Platelet Count 156 x10^3/uL (140-400) Neutrophils (%) (Auto) 82 % (31-73) Lymphocytes (%) (Auto) 6 % (24-48) Monocytes (%) (Auto) 9 % (0-9) Eosinophils (%) (Auto) 2 % (0-3) Basophils (%) (Auto) 1 % (0-3) Neutrophils # (Auto) 6.2 x10^3/uL (1.8-7.7) Lymphocytes # (Auto) 0.5 x10^3/uL (1.0-4.8) Monocytes # (Auto) 0.6 x10^3/uL (0.0-1.1) Eosinophils # (Auto) 0.2 x10^3/uL (0.0-0.7) Basophils # (Auto) 0.1 x10^3/uL (0.0-0.2) Sodium Level 132 mmol/L (136-145) Potassium Level 4.8 mmol/L (3.5-5.1) Chloride Level 100 mmol/L (98-107) Carbon Dioxide Level 25 mmol/L (21-32) Anion Gap 7 (6-14) Blood Urea Nitrogen 26 mg/dL (8-26) Creatinine 1.0 mg/dL (0.7-1.3) Estimated GFR (Cockcroft-Gault) 72.5 Glucose Level 92 mg/dL (70-99) Calcium Level 7.0 mg/dL (8.5-10.1) Problem List Problems Medical Problems: (1) Abdominal pain Status: Acute Justicifation of Admission Dx: Justifications for Admission: Justification of Admission Dx: Yes Respiratory Failure: Severe Resp Distress EMEKA COLON APRN Jan 18, 2021 09:52
[2021-01-18] MEDS: IPRATROPIUM BROMIDE 0.06% NASAL SPRAY 15ML BOTTLE. NS SCH ×2 (09:54→21:29)
[2021-01-18] MEDS: ASPIRIN CHEWABLE 81 MG TABLET. PO SCH (09:54)
[2021-01-18] MEDS: PREGABALIN 75 MG CAPSULE PO SCH ×2 (09:54→21:29)
[2021-01-18] MEDS: ATORVASTATIN CALCIUM 10 MG TABLET. PO SCH (09:54)
[2021-01-18] MEDS: LISINOPRIL 5 MG TABLET. PO SCH (09:55)
[2021-01-18] MEDS: METOPROLOL SUCC 24HR ER 25 MG TAB.ER.24H. PO SCH (09:55)
[2021-01-18] MEDS: SERTRALINE 50 MG TABLET. PO SCH (09:55)
[2021-01-18] MEDS: FUROSEMIDE 20 MG/2 ML VIAL. IVP SCH (09:56)
--- NOTE | 2021-01-18 09:56 | PDOC ---
PULMONARY PROGRESS NOTES DATE: 01/18/21 TIME: 09:55 Subjective Diet has been advanced patient with no new complaints Vitals Vital Signs Date Time Temp Pulse Resp B/P (MAP) Pulse Ox O2 Delivery O2 Flow Rate FiO2 01/18/21 08:21 Nasal Cannula 6.0 01/18/21 07:00 95.1 70 20 102/59 (73) 94 95.1 ROS: No Nausea, No Chest Pain, No Increase Cough General: Alert, No acute distress Lungs: Clear Cardiovascular: S1, S2 Abdomen: Soft, Non-tender, Other (distended ) Neuro Exam: Alert Extremities: Other (Edema) Skin: Warm Labs Laboratory Tests Test 01/17/21 07:25 01/18/21 06:20 White Blood Count 7.8 x10^3/uL (4.0-11.0) 7.5 x10^3/uL (4.0-11.0) Red Blood Count 3.41 x10^6/uL (4.30-5.70) 3.32 x10^6/uL (4.30-5.70) Hemoglobin 8.3 g/dL (13.0-17.5) 8.2 g/dL (13.0-17.5) Hematocrit 27.8 % (39.0-53.0) 26.7 % (39.0-53.0) Mean Corpuscular Volume 82 fL (79-100) 81 fL (79-100) Mean Corpuscular Hemoglobin 24 pg (25-35) 25 pg (25-35) Mean Corpuscular Hemoglobin Concent 30 g/dL (31-37) 31 g/dL (31-37) Red Cell Distribution Width 26.6 % (11.5-14.5) 26.5 % (11.5-14.5) Platelet Count 158 x10^3/uL (140-400) 156 x10^3/uL (140-400) Neutrophils (%) (Auto) 86 % (31-73) 82 % (31-73) Lymphocytes (%) (Auto) 5 % (24-48) 6 % (24-48) Monocytes (%) (Auto) 7 % (0-9) 9 % (0-9) Eosinophils (%) (Auto) 2 % (0-3) 2 % (0-3) Basophils (%) (Auto) 1 % (0-3) 1 % (0-3) Neutrophils # (Auto) 6.7 x10^3/uL (1.8-7.7) 6.2 x10^3/uL (1.8-7.7) Lymphocytes # (Auto) 0.4 x10^3/uL (1.0-4.8) 0.5 x10^3/uL (1.0-4.8) Monocytes # (Auto) 0.6 x10^3/uL (0.0-1.1) 0.6 x10^3/uL (0.0-1.1) Eosinophils # (Auto) 0.1 x10^3/uL (0.0-0.7) 0.2 x10^3/uL (0.0-0.7) Basophils # (Auto) 0.1 x10^3/uL (0.0-0.2) 0.1 x10^3/uL (0.0-0.2) Sodium Level 133 mmol/L (136-145) 132 mmol/L (136-145) Potassium Level 4.6 mmol/L (3.5-5.1) 4.8 mmol/L (3.5-5.1) Chloride Level 100 mmol/L (98-107) 100 mmol/L (98-107) Carbon Dioxide Level 24 mmol/L (21-32) 25 mmol/L (21-32) Anion Gap 9 (6-14) 7 (6-14) Blood Urea Nitrogen 26 mg/dL (8-26) 26 mg/dL (8-26) Creatinine 1.0 mg/dL (0.7-1.3) 1.0 mg/dL (0.7-1.3) Estimated GFR (Cockcroft-Gault) 72.5 72.5 BUN/Creatinine Ratio 26 (6-20) Glucose Level 97 mg/dL (70-99) 92 mg/dL (70-99) Calcium Level 7.3 mg/dL (8.5-10.1) 7.0 mg/dL (8.5-10.1) Total Bilirubin 5.1 mg/dL (0.2-1.0) Aspartate Amino Transf (AST/SGOT) 45 U/L (15-37) Alanine Aminotransferase (ALT/SGPT) 49 U/L (16-63) Alkaline Phosphatase 185 U/L (46-116) Total Protein 5.5 g/dL (6.4-8.2) Albumin 2.2 g/dL (3.4-5.0) Albumin/Globulin Ratio 0.7 (1.0-1.7) Laboratory Tests Test 01/18/21 06:20 White Blood Count 7.5 x10^3/uL (4.0-11.0) Red Blood Count 3.32 x10^6/uL (4.30-5.70) Hemoglobin 8.2 g/dL (13.0-17.5) Hematocrit 26.7 % (39.0-53.0) Mean Corpuscular Volume 81 fL (79-100) Mean Corpuscular Hemoglobin 25 pg (25-35) Mean Corpuscular Hemoglobin Concent 31 g/dL (31-37) Red Cell Distribution Width 26.5 % (11.5-14.5) Platelet Count 156 x10^3/uL (140-400) Neutrophils (%) (Auto) 82 % (31-73) Lymphocytes (%) (Auto) 6 % (24-48) Monocytes (%) (Auto) 9 % (0-9) Eosinophils (%) (Auto) 2 % (0-3) Basophils (%) (Auto) 1 % (0-3) Neutrophils # (Auto) 6.2 x10^3/uL (1.8-7.7) Lymphocytes # (Auto) 0.5 x10^3/uL (1.0-4.8) Monocytes # (Auto) 0.6 x10^3/uL (0.0-1.1) Eosinophils # (Auto) 0.2 x10^3/uL (0.0-0.7) Basophils # (Auto) 0.1 x10^3/uL (0.0-0.2) Sodium Level 132 mmol/L (136-145) Potassium Level 4.8 mmol/L (3.5-5.1) Chloride Level 100 mmol/L (98-107) Carbon Dioxide Level 25 mmol/L (21-32) Anion Gap 7 (6-14) Blood Urea Nitrogen 26 mg/dL (8-26) Creatinine 1.0 mg/dL (0.7-1.3) Estimated GFR (Cockcroft-Gault) 72.5 Glucose Level 92 mg/dL (70-99) Calcium Level 7.0 mg/dL (8.5-10.1) Medications Active Scripts Medications Dose Route/Sig Max Daily Dose Days Date Category Sertraline Hcl 50 Mg Tablet 50 Mg PO DAILY 12/29/20 Reported Budesonide 0.5 Mg/2 Ml Ampul.neb 1 Vial NEB BID 12/29/20 Reported Tudorza Pressair (Aclidinium Tobias) 400 Mcg Aer.pow.ba 1 Puff IH BID 12/29/20 Reported Ipratropium Tobias 0.2 Mg/1 Ml Solution 1 Vial NEB QID 12/29/20 Reported Klor-Con 10 (Potassium Chloride) 10 Meq Tablet.er 1 Tab PO DAILY 30 12/29/20 Reported Lyrica (Pregabalin) 75 Mg Capsule 1 Cap PO BID 12/29/20 Reported Lisinopril 5 Mg Tablet 5 Mg PO DAILY 10/17/20 Rx Senna Plus Tablet (Sennosides/Docusate Sodium) 1 Each Tablet 2 Tab PO QHS 14 10/01/20 Rx Ipratropium Tobias 15 Ml [place] 2 Sprays NS BID 07/08/20 Reported Metoprolol Succinate ( Xl ) (Metoprolol Succinate) 25 Mg Tab.er.24h 1 Tab PO DAILY 30 07/08/20 Reported Pantoprazole Sodium 40 Mg Tablet.dr 1 Tab PO DAILY 30 07/08/20 Reported Gabapentin (Gabapentin) 300 Mg Capsule 300 Mg PO DAILYWSUP 06/30/19 Reported Aspirin 81 Mg Tab.chew 81 Mg PO DAILY 06/30/19 Reported Furosemide 40 Mg Tablet 40 Mg PO DAILY MDD 1 10/19/18 Rx Lovastatin 40 Mg Tablet 1 Tab PO DAILY 12/14/14 Reported Impression . IMPRESSION: 1. Chronic respiratory failure, multifactorial secondary to severe chronic obstructive pulmonary disease, coronary artery disease, previous coronary artery bypass grafting and deconditioning. 2. Cardiomyopathy, status post coronary artery bypass grafting. 3. Chronic atrial fibrillation. 4. Recent diagnosis of colon cancer. S/P open right colon resection, liver biopsy, see path report 5. Ascites 6. 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 Dysphagia, improving Diagnosis: A. Distal ileum, cecum, ascending colon, and proximal transverse colon with attached mesocolon and portion of omentum, extended right colon resection: - Invasive colorectal adenocarcinoma, moderately to poorly differentiated, forming a nearly circumferential, centrally ulcerated tumor mass measuring up to 5.5 cm in greatest dimension, with tumor invasion through muscularis propria into subserosa/mesocolon. - Focal lymphovascular tumor invasion identified. - Fourteen mesocolic lymph nodes negative for tumor (0/14). - Proximal (distal ileum), distal (transverse colon), and mesocolic margins of resection negative for tumor. - Omentum negative for tumor. - Adiposity of ileocecal valve. - Fibrofatty obliteration of distal appendiceal lumen. - Melanosis coli. . B. Liver biopsy: - Metastatic adenocarcinoma, consistent with colorectal origin. IMPRESSION: 1. No evidence of deep venous thrombosis. 2. Occlusive thrombus in the superficial left upper extremity venous system (cephalic vein). Plan . Updated 01/18 Patient diet has been advanced .no respiratory distress PT OT Up in chair Social service working on disposition Aggressive PT and OT Patient instructed to sit up in a chair all day Continue aggressive pulmonary hygiene Discussed with RN will see FELIBERTO Alvarado MD Jan 18, 2021 09:56
[2021-01-18] MEDS: AMINO AC 3%/ELECTROLYTE/GLYCER 1,000 ML IV SCH ×2 (10:20→22:56)
[2021-01-18] MEDS: IV NORMAL SALINE 1000ML BAG 1,000 ML IV SCH (10:56)
[2021-01-18 11:00] VITALS: BP 110/60
--- NOTE | 2021-01-18 13:11 | RAD ---
XR CHEST 1V History: Reason: Follow-up on nodular infiltrate overlying the right lower lobe / Spl. Instructions: / History: Comparison: January 10, 2021 Findings: Unchanged right basilar opacity. Emphysema. Bilateral interstitial and reticular opacities. Unchanged heart size. Prior mid sternotomy. Stable left-sided pacemaker/ICD. No pneumothorax. Impression: 1. Unchanged right basilar opacity. Recommend continued follow-up. Alternatively, CT can better eval uate. 2. Stable bilateral interstitial reticular opacities, may relate to chronic interstitial changes. Electronically signed by: Sanjay Larson DO (01/18/2021 1:09 PM) [id number]
[2021-01-18 15:00] VITALS: BP 104/58
[2021-01-18] MEDS: ENOXAPARIN 40 MG/0.4 ML SYRINGE. SQ SCH (16:07)
--- NOTE | 2021-01-18 16:55 | PDOC3 ---
Discharge Summary Visit Information Date of Admission: Dec 29, 2020 Date of Discharge: Jan 19, 2021 Final Diagnosis Problems Medical Problems: (1) Abdominal pain Status: Acute Brief Hospital Course Allergies Allergies Coded Allergies Type Severity Reaction Last Updated Verified No Known Drug Allergies 10/15/20 No Vital Signs Vital Signs Date Time Temp Pulse Resp B/P (MAP) Pulse Ox O2 Delivery O2 Flow Rate FiO2 01/18/21 15:00 95.8 70 20 104/58 (73) 90 Nasal Cannula 6.0 95.8 Lab Results Laboratory Tests Test 01/17/21 07:25 01/17/21 17:10 01/18/21 06:20 White Blood Count 7.8 x10^3/uL (4.0-11.0) 7.5 x10^3/uL (4.0-11.0) Red Blood Count 3.41 x10^6/uL (4.30-5.70) 3.32 x10^6/uL (4.30-5.70) Hemoglobin 8.3 g/dL (13.0-17.5) 8.2 g/dL (13.0-17.5) Hematocrit 27.8 % (39.0-53.0) 26.7 % (39.0-53.0) Mean Corpuscular Volume 82 fL (79-100) 81 fL (79-100) Mean Corpuscular Hemoglobin 24 pg (25-35) 25 pg (25-35) Mean Corpuscular Hemoglobin Concent 30 g/dL (31-37) 31 g/dL (31-37) Red Cell Distribution Width 26.6 % (11.5-14.5) 26.5 % (11.5-14.5) Platelet Count 158 x10^3/uL (140-400) 156 x10^3/uL (140-400) Neutrophils (%) (Auto) 86 % (31-73) 82 % (31-73) Lymphocytes (%) (Auto) 5 % (24-48) 6 % (24-48) Monocytes (%) (Auto) 7 % (0-9) 9 % (0-9) Eosinophils (%) (Auto) 2 % (0-3) 2 % (0-3) Basophils (%) (Auto) 1 % (0-3) 1 % (0-3) Neutrophils # (Auto) 6.7 x10^3/uL (1.8-7.7) 6.2 x10^3/uL (1.8-7.7) Lymphocytes # (Auto) 0.4 x10^3/uL (1.0-4.8) 0.5 x10^3/uL (1.0-4.8) Monocytes # (Auto) 0.6 x10^3/uL (0.0-1.1) 0.6 x10^3/uL (0.0-1.1) Eosinophils # (Auto) 0.1 x10^3/uL (0.0-0.7) 0.2 x10^3/uL (0.0-0.7) Basophils # (Auto) 0.1 x10^3/uL (0.0-0.2) 0.1 x10^3/uL (0.0-0.2) Sodium Level 133 mmol/L (136-145) 132 mmol/L (136-145) Potassium Level 4.6 mmol/L (3.5-5.1) 4.8 mmol/L (3.5-5.1) Chloride Level 100 mmol/L (98-107) 100 mmol/L (98-107) Carbon Dioxide Level 24 mmol/L (21-32) 25 mmol/L (21-32) Anion Gap 9 (6-14) 7 (6-14) Blood Urea Nitrogen 26 mg/dL (8-26) 26 mg/dL (8-26) Creatinine 1.0 mg/dL (0.7-1.3) 1.0 mg/dL (0.7-1.3) Estimated GFR (Cockcroft-Gault) 72.5 72.5 BUN/Creatinine Ratio 26 (6-20) Glucose Level 97 mg/dL (70-99) 92 mg/dL (70-99) Calcium Level 7.3 mg/dL (8.5-10.1) 7.0 mg/dL (8.5-10.1) Total Bilirubin 5.1 mg/dL (0.2-1.0) Aspartate Amino Transf (AST/SGOT) 45 U/L (15-37) Alanine Aminotransferase (ALT/SGPT) 49 U/L (16-63) Alkaline Phosphatase 185 U/L (46-116) Total Protein 5.5 g/dL (6.4-8.2) Albumin 2.2 g/dL (3.4-5.0) Albumin/Globulin Ratio 0.7 (1.0-1.7) Coronavirus (PCR) Not detected (Not Detected) Laboratory Tests Test 01/17/21 17:10 01/18/21 06:20 Coronavirus (PCR) Not detected (Not Detected) White Blood Count 7.5 x10^3/uL (4.0-11.0) Red Blood Count 3.32 x10^6/uL (4.30-5.70) Hemoglobin 8.2 g/dL (13.0-17.5) Hematocrit 26.7 % (39.0-53.0) Mean Corpuscular Volume 81 fL (79-100) Mean Corpuscular Hemoglobin 25 pg (25-35) Mean Corpuscular Hemoglobin Concent 31 g/dL (31-37) Red Cell Distribution Width 26.5 % (11.5-14.5) Platelet Count 156 x10^3/uL (140-400) Neutrophils (%) (Auto) 82 % (31-73) Lymphocytes (%) (Auto) 6 % (24-48) Monocytes (%) (Auto) 9 % (0-9) Eosinophils (%) (Auto) 2 % (0-3) Basophils (%) (Auto) 1 % (0-3) Neutrophils # (Auto) 6.2 x10^3/uL (1.8-7.7) Lymphocytes # (Auto) 0.5 x10^3/uL (1.0-4.8) Monocytes # (Auto) 0.6 x10^3/uL (0.0-1.1) Eosinophils # (Auto) 0.2 x10^3/uL (0.0-0.7) Basophils # (Auto) 0.1 x10^3/uL (0.0-0.2) Sodium Level 132 mmol/L (136-145) Potassium Level 4.8 mmol/L (3.5-5.1) Chloride Level 100 mmol/L (98-107) Carbon Dioxide Level 25 mmol/L (21-32) Anion Gap 7 (6-14) Blood Urea Nitrogen 26 mg/dL (8-26) Creatinine 1.0 mg/dL (0.7-1.3) Estimated GFR (Cockcroft-Gault) 72.5 Glucose Level 92 mg/dL (70-99) Calcium Level 7.0 mg/dL (8.5-10.1) Brief Hospital Course Mr. Holm is a 75 old male who presented with colonic adenocarcinoma of hepatic flexure.Consultations were placed to General Surgery, Vascular Surgery, Hematology/Oncology, Cardiology, GI, and Pulmonology. He had open right colon resection with liver biopsy. Pathology report showed invasive colorectal adenocarcinoma and metastatic adenocarcinoma to liver. He had US of left upper extremity that showed occlusive thrombus in the superficial left upper extremity venous system (cephalic vein). He was recommended warm compresses, no need for systemic anticoagulation. He was monitored in ICU following surgery. He was transfused packed red blood cells as needed for critical anemia and provided appropriate pain management. Once bowel function improved, his diet was advanced as tolerated. Video swallow study showed evidence of silent aspiration, and he was recommended chintuck with all thin liquid swallows. He participated with ST, PT, OT, and was recommended acute rehab. He was discharged to rehab once an appropriate facility was located that could accommodate his oxygen requirement. Discharge Information Condition at Discharge: Stable Follow Up: Weeks Disposition/Orders: D/C to Another Facility Scheduled Aclidinium [place] (Tudorza Pressair) 400 Mcg Aer.pow.ba, 1 PUFF IH BID, #1 Ref 0 (Reported) Entered as Reported by: TAYE MARIA on 12/29/201930 Last Taken: Unknown Dose on Unknown Date & Time Last Action: Converted on 12/30/20 114 by BIRD RUSSELL Aspirin (Aspirin) 81 Mg Tab.chew, 81 MG PO DAILY for , (Reported) Entered as Reported by: China Samano on 06/30/19 1751 Last Taken: Unknown Dose on 12/29/20 Last Action: Continued on 12/30/20 114 by BIRD RUSSELL Budesonide (Budesonide) 0.5 Mg/2 Ml Ampul.neb, 1 VIAL NEB BID, #120 Ref 3 (Reported) Entered as Reported by: TAYE MARIA on 12/29/201930 Last Taken: Unknown Dose on Unknown Date & Time Last Action: Reviewed on 12/30/20309 by Shellie Aviles Furosemide (Furosemide) 40 Mg Tablet, 40 MG PO DAILY for chf MDD 1, #60 Prescribed by: RAMILA PATINO on 10/19/18 1043 Last Taken: 40mg on 12/29/20 Last Action: Continued on 12/30/20 114 by BIRD RUSSELL Gabapentin (Gabapentin ) 300 Mg Capsule, 300 MG PO DAILYWSUP for NEUROGENIC PAIN, (Reported) Entered as Reported by: China Samano on 06/30/19 1751 Last Taken: Unknown Dose on 12/29/20 Last Action: Continued on 12/30/20 114 by BIRD RUSSELL Ipratropium [place] (Ipratropium [place]) 15 Ml [place], 2 SPRAYS NS BID, (Reported) Entered as Reported by: ADDY POTTER MD on 07/08/20 1609 Last Taken: Unknown Dose on Unknown Date & Time Last Action: Continued on 12/30/20 114 by BIRD RUSSELL Ipratropium [place] (Ipratropium [place]) 0.2 Mg/1 Ml Solution, 1 VIAL NEB QID, #300 Ref 5 (Reported) Entered as Reported by: TAYE MARIA on 12/29/20 1931 Last Taken: Unknown Dose on Unknown Date & Time Last Action: Continued on 12/30/20 114 by BIRD RUSSELL Lisinopril (Lisinopril) 5 Mg Tablet, 5 MG PO DAILY for HTN, #30 Ref 2 Prescribed by: NIGEL LEON MD on 10/17/20 1444 Last Taken: 5mg on 12/29/20 0800 Last Action: Continued on 12/30/20 114 by BIRD RUSSELL Lovastatin (Lovastatin) 40 Mg Tablet, 1 TAB PO DAILY, #90 Ref 3 (Reported) Entered as Reported by: PORFIRIO STONE on 12/14/14 1145 Last Taken: Unknown Dose on 12/28/20 Last Action: Converted on 12/30/20 114 by BIRD RUSSELL Metoprolol Succinate (Metoprolol Succinate ( Xl )) 25 Mg Tab.er.24h, 1 TAB PO DAILY for CHF for 30 Days, #30 (Reported) Entered as Reported by: ADDY POTTER MD on 07/08/20 1609 Last Taken: Unknown Dose on 12/29/20 Last Action: Continued on 12/30/20 1141 by MIGUELJuliet RUSSELL Pantoprazole Sodium (Pantoprazole Sodium) 40 Mg Tablet.dr, 1 TAB PO DAILY for GERD for 30 Days, #30 (Reported) Entered as Reported by: DADY POTTER MD on 07/08/20 1609 Last Taken: Unknown Dose on 12/29/20 Last Action: Continued on 12/30/201140 by NIAL DREW Potassium Chloride (Klor-Con 10) 10 Meq Tablet.er, 1 TAB PO DAILY for 30 Days, #30 Ref 0 (Reported) Entered as Reported by: TAYE MARIA on 12/29/201930 Last Taken: Unknown Dose on Unknown Date & Time Last Action: Converted on 12/30/201140 by NIAJuliet RUSSELL Pregabalin (Lyrica) 75 Mg Capsule, 1 CAP PO BID, #60 Ref 1 (Reported) Entered as Reported by: TAYE MARIA on 12/29/201930 Last Taken: Unknown Dose on 12/29/20 Last Action: Continued on 12/30/20 11 41 by NIAJuliet RUSSELL Sennosides/Docusate Sodium (Senna Plus Tablet) 1 Each Tablet, 2 TAB PO QHS for 14 Days, #28 Ref 0 Prescribed by: ARNEL OCASIO APRN on 10/01/20 1507 Last Action: Continued on 12/30/201140 by NIAJuliet RUSSELL Sertraline Hcl (Sertraline Hcl) 50 Mg Tablet, 50 MG PO DAILY for ANTI- DEPRESSANT, Ref 0 (Reported) Entered as Reported by: TAYE MARIA on 12/29/201930 Last Taken: Unknown Dose on Unknown Date & Time Last Action: Continued on 12/30/201140 by NIAL CASTJALYN Justicifation of Admission Dx: Justifications for Admission: Justification of Admission Dx: Yes Respiratory Failure: Severe Resp Distress NIGEL LEON MD Jan 18, 2021 16:55
[2021-01-18] MEDS: GABAPENTIN 300 MG CAPSULE. PO SCH (17:11)
[2021-01-18 19:00] VITALS: BP 89/57
[2021-01-18] MEDS: SENNOSIDES/DOCUSATE 8.6/50MG TABLET. PO SCH (21:29)
[2021-01-18 23:00] VITALS: BP 103/58
[2021-01-19 03:00] VITALS: BP 118/44
[2021-01-19 06:41] LABS: BASO # 0.1 x10^3/uL (0.0-0.2); BASO % 1 % (0-3); EOS # 0.1 x10^3/uL (0.0-0.7); EOS % 1 % (0-3); HEMATOCRIT 28.1 % (39.0-53.0); HEMOGLOBIN 8.3 g/dL (13.0-17.5); LYMPH # 0.4 x10^3/uL (1.0-4.8); LYMPH % 6 % (24-48); MEAN CORPUSCULAR HEMOGLOBIN 24 pg (25-35); MEAN CORPUSCULAR HGB CONC 30 g/dL (31-37); MEAN CORPUSCULAR VOLUME 82 fL (79-100); MONO # 0.6 x10^3/uL (0.0-1.1); MONO % 8 % (0-9); NEUT # 6.2 x10^3/uL (1.8-7.7); NEUT % 84 % (31-73); PLATELET COUNT 154 x10^3/uL (140-400); RED BLOOD COUNT 3.43 x10^6/uL (4.30-5.70); RED CELL DISTRIBUTION WIDTH 26.4 % (11.5-14.5); WHITE BLOOD COUNT 7.4 x10^3/uL (4.0-11.0)
[2021-01-19 06:56] LABS: CALCIUM 7.4 mg/dL (8.5-10.1); GFR 72.5; POTASSIUM 4.9 mmol/L (3.5-5.1)
[2021-01-19 07:00] VITALS: BP 107/61
[2021-01-19] MEDS: BUDESONIDE 0.5 MG/2 ML NEBU. NEB SCH (07:28)
[2021-01-19] MEDS: IPRATRPIUM/ALBUTEROL 0.5/2.5MG 3 ML NEBU. NEB SCH ×2 (07:28→11:27)
[2021-01-19] MEDS: POTASSIUM CHLORIDE 10 MEQ TABLET.ER. PO SCH (08:01)
[2021-01-19] MEDS: PANTOPRAZOLE 40 MG TABLET.DR. PO SCH (08:01)
[2021-01-19] MEDS: POLYETHYLENE GLYCOL 3350 17 GM PACKET. PO SCH (09:00)
[2021-01-19] MEDS: BISACODYL 10 MG SUPP.RECT. PR SCH (09:00)
[2021-01-19] MEDS: ASPIRIN CHEWABLE 81 MG TABLET. PO SCH (09:37)
[2021-01-19] MEDS: LISINOPRIL 5 MG TABLET. PO SCH (09:37)
[2021-01-19] MEDS: ATORVASTATIN CALCIUM 10 MG TABLET. PO SCH (09:37)
[2021-01-19] MEDS: PREGABALIN 75 MG CAPSULE PO SCH (09:37)
[2021-01-19] MEDS: SERTRALINE 50 MG TABLET. PO SCH (09:37)
[2021-01-19] MEDS: METOPROLOL SUCC 24HR ER 25 MG TAB.ER.24H. PO SCH (09:37)
[2021-01-19] MEDS: IPRATROPIUM BROMIDE 0.06% NASAL SPRAY 15ML BOTTLE. NS SCH (09:39)
[2021-01-19] MEDS: FUROSEMIDE 20 MG/2 ML VIAL. IVP SCH (09:39)
[2021-01-19] MEDS: AMINO AC 3%/ELECTROLYTE/GLYCER 1,000 ML IV SCH (10:30)
--- NOTE | 2021-01-19 10:54 | PDOC ---
[employer] PROGRESS NOTE Date of Service DOS: DATE: 01/19/21 TIME: 10:49 Chief Complaint Chief Complaint Assessment/Plan Acute Abd pain, fluid overload colon cancer, status post open right colectomy with liver biopsy on 01/04/2021 iron deficiency anemia, obese, BMI 32 weakness, debility depression, insomnia neuropathy Mild acute on chronic systolic CHF; appears compensated Echo 10/24 with LVEF 30-35%. S/p [employer] ([employer]) CAD: past CABG and PCI. Anemia of chronic disease Persistent AFIB; v-paced with underlying AFIB, rate controlled Hypertension; controlled Hyperlipidemia Acute on chronic kidney injury, currently improved and stable COPD with home O2 use of about 4 L nasal cannula Left cephalic vein thrombus Odynophagia/dysphagia Pending video swallow Lovenox for DVT prophylaxis Protonix GI prophylaxis ADA diet Full code Discussed with RN and SW Disposition advancing diet as tolerated Surrogate decision maker is the History of Present Illness History of Present Illness 01/19/2021 Patient seen and evaluated. No complaints today, still breathing on 6 L nasal cannula. Chest x-ray from yesterday showed stable bilateral chronic interstitial changes, unchanged right basilar opacity from 01/10/2021. Recommend continued follow-up. Discussed with nursing home social worker, patient has been accepted to [facility] for acute rehab, as they can take up to 6 L nasal cannula. Greater than 30 minutes was spent managing the discharge of this patient. 01/18/2021 Afebrile. Intermittently breathing on 5 - 6 L nasal cannula. He has been a ccepted at [facility] as well as his O2 requirement stays at or below 5 L nasal cannula. At baseline requires 4 L O2, and usually requires more O2 with exertion. Continue to wean O2. Will repeat chest x-ray to confirm resolution of right lower lobe nodular infiltrate seen on 01/10/2021. He will need repeat COVID-19 swab for placement. 01/17/2021 Patient seen and evaluated, no acute events overnight. Afebrile. Currently breathing on 5 L nasal cannula. Had video swallow study 01/14 and recommended ch intuck with all thin liquid swallows. Patient has been accepted at [facility], but will need to be able to maintain on 5 L oxygen or less. At baseline patient is on 4 L O2; will continue to wean O2. 01/14/2021 No acute events overnight. Patient saturation is 89% on 6 L nasal cannula and tolerating. No acute dyspneic episodes. Patient underwent video swallow and was able to tolerate thin liquids with chin tuck. Will attempt clear liquid diet today. Patient's chart, labs, images were reviewed and discussed with RN 01/13/2021 No acute events overnight. Patient needed to be put on Ventimask because he would desat down to the low to the low 80s. Currently saturating 93% on 15 L Ventimask. Video swallow unable to done while the mask. Will attempt to titrate down on O2 and try to keep on high flow nasal cannula. Continue of IV diuresis per cardiology. Patient's chart, labs, images were reviewed and discussed with RN 01/12/2021 No acute events overnight. Patient saturating well on 93% on 5 L nasal cannula. Patient is also -1.7 L with adequate urine output and gentle IV diuresis. Pending speech evaluation. Patient also continues to have hiccups which is not improved with Zofran or Compazine. Will attempt to try ice chips with some honey to improve gastric motility. If refractory will also try IV Thorazine. Per surgery, will advance diet as tolerated with ensures 3 times daily. Patient's chart, labs, images were reviewed and discussed with RN 01/11/2021 No acute events overnight. Patient continues to be on Ventimask at 15 L. Patient continues to be needing IV diuresis. Recommend continue with PT OT today. Patient's chart, labs, images were reviewed and discussed with RN 01/10/2021 No acute events overnight. Patient this morning had desaturation to 90s while on Venturi mask. Chest x-ray is ordered. Patient continues to be on IV diuretics. Pain is controlled and patient is passing flatus. We will continue with PPN. Patient's chart, labs, images were reviewed and discussed with RN 01/09, has small amount of stool output, on full liquid, poor PO intake, cont the PPN, needs rehab, he has some emotion today about nto improving much, I discussed at length that everything right now is going well and just takes time, no new complaint 01/08, change fluid from LR to PPN, cont other, pain OK, he reports stool, RN doesnt think so, cont current, if he stools, we can try liquid diet, try OOB to chair 4 L nasal cannula O2. Afebrile. Sit up in chair. Pain is still intermittent. Even with ice chips he is getting some esophageal spasm and pain. Not passing flatus currently. Feeling well overall. Hb 7.9, CR 1.2. Okay to transfer out of ICU. 01/06: On 15L facemask O2, up from home 4L. He is feeling well, asking to eat and drink. Still using his [employer]. IV protonix today 01/05: Seen in ICU. On facemask O2. He actually has bowel sounds is reasonably controlled abdominal pain with [employer]. His only complaint is dry mouth. 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 Transferred to ICU thereafter. 01/02: Patient seen and examined, sitting up and talkative. He has no new complaints 01/01: Issues swallowing liquids, ordering bedside swallow. He did take a drink and have a coughing fit during our conversation, says this happens frequently 12/31: Patient seen and examined. Discussed surgery date push back 12/30: Discussed CRC prognosis and he wanted a second opinion on the prognosis. Called Dr. Cullen who is willing to complete surgery if patient decides Vitals/I&O Vitals/I&O: Vital Signs Date Time Temp Pulse Resp B/P (MAP) Pulse Ox O2 Delivery O2 Flow Rate FiO2 01/19/21 09:37 71 107/61 01/19/21 08:06 Nasal Cannula 6.0 01/19/21 07:25 91 01/19/21 07:00 96.0 20 96.0 I & O 01/18/21 01/18/21 01/19/21 15:00 23:00 07:00 Intake Total 1000 ml 200 ml 400 ml Output Total 300 ml 625 ml 300 ml Balance 700 ml -425 ml 100 ml Physical Exam General: Alert, Oriented X3, Cooperative Heart: Regular rate Lungs: Clear Abdomen: Soft, Other (incision intact) Extremities: No clubbing, No cyanosis, Other (Mild edema) Skin: No rashes, Other (Bruising on arms) Labs Labs: Laboratory Tests Test 01/19/21 05:50 01/19/21 05:58 Sodium Level 132 mmol/L (136-145) Potassium Level 4.9 mmol/L (3.5-5.1) Chloride Level 101 mmol/L (98-107) Carbon Dioxide Level 27 mmol/L (21-32) Anion Gap 4 (6-14) Blood Urea Nitrogen 24 mg/dL (8-26) Creatinine 1.0 mg/dL (0.7-1.3) Estimated GFR (Cockcroft-Gault) 72.5 Glucose Level 91 mg/dL (70-99) Calcium Level 7.4 mg/dL (8.5-10.1) White Blood Count 7.4 x10^3/uL (4.0-11.0) Red Blood Count 3.43 x10^6/uL (4.30-5.70) Hemoglobin 8.3 g/dL (13.0-17.5) Hematocrit 28.1 % (39.0-53.0) Mean Corpuscular Volume 82 fL (79-100) Mean Corpuscular Hemoglobin 24 pg (25-35) Mean Corpuscular Hemoglobin Concent 30 g/dL (31-37) Red Cell Distribution Width 26.4 % (11.5-14.5) Platelet Count 154 x10^3/uL (140-400) Neutrophils (%) (Auto) 84 % (31-73) Lymphocytes (%) (Auto) 6 % (24-48) Monocytes (%) (Auto) 8 % (0-9) Eosinophils (%) (Auto) 1 % (0-3) Basophils (%) (Auto) 1 % (0-3) Neutrophils # (Auto) 6.2 x10^3/uL (1.8-7.7) Lymphocytes # (Auto) 0.4 x10^3/uL (1.0-4.8) Monocytes # (Auto) 0.6 x10^3/uL (0.0-1.1) Eosinophils # (Auto) 0.1 x10^3/uL (0.0-0.7) Basophils # (Auto) 0.1 x10^3/uL (0.0-0.2) Assessment and Plan Assessmemt and Plan Problems Medical Problems: (1) Abdominal pain Status: Acute Comment Review of Relevant I have reviewed the following items jay (where applicable) has been applied. Justifications for Admission Other Justification NIGEL LEON MD Jan 19, 2021 10:54
[2021-01-19 11:00] VITALS: BP 97/59
[2021-01-19] MEDS: IV NORMAL SALINE 1000ML BAG 1,000 ML IV SCH (11:29)
--- NOTE | 2021-01-19 11:53 | SNU/HH DC ---
DISCHARGE ORDERS DISCHARGE INFORMATION: DISCHARGE DATE: Jan 19, 2021 FINAL DIAGNOSIS Problems Medical Problems: (1) Abdominal pain Status: Acute CONDITION ON DISCHARGE: Stable CODE STATUS: Code Status: Full JAIL: SNF STAY <30 DAYS: Yes POST DISCHARGE ORDERS: ACTIVITY ORDERS: Activity as tolerated WEIGHT BEARING STATUS: As tolerated BATHING ORDERS: Shower-keep dressing dry DIET AFTER DISCHARGE: Cardiac WOUND/INCISION CARE: No wound care needed CHECKS AFTER DISCHARGE: CHECKS AFTER DISCHARGE: Check blood press - daily TREATMENT/EQUIPMENT ORDERS: ADAPTIVE EQUIPMENT NEEDED: None RESPIRATORY EQUIPMENT NEEDED: Oxygen Physical Therapy For: Evalulation/Treatment Occupational Therapy For: Evaluation/Treatment DISCHARGE MEDICATIONS: Home Meds Active Scripts Lisinopril (LISINOPRIL) 5 Mg Tablet, 5 MG PO DAILY for HTN, #30 TAB 2 Refills Prov:NIGEL LEON MD 10/17/20 Sennosides/Docusate Sodium (SENNA PLUS TABLET) 1 Each Tablet, 2 TAB PO QHS for 14 Days, #28 TAB 0 Refills Prov:ARNEL OCASIO APRN 10/01/20 Furosemide (FUROSEMIDE) 40 Mg Tablet, 40 MG PO DAILY for chf MDD 1, #60 TAB Prov:RAMILA PATINO MD 10/19/18 Reported Medications Sertraline Hcl (SERTRALINE HCL) 50 Mg Tablet, 50 MG PO DAILY for ANTI- DEPRESSANT, TAB 0 Refills 12/29/20 Budesonide (BUDESONIDE) 0.5 Mg/2 Ml Ampul.neb, 1 VIAL NEB BID, #120 ML 3 Refills 12/29/20 Aclidinium [place] (TUDORZA PRESSAIR) 400 Mcg Aer.pow.ba, 1 PUFF IH BID, #1 INHALER 0 Refills 12/29/20 Ipratropium [place] (IPRATROPIUM BROMIDE) 0.2 Mg/1 Ml Solution, 1 VIAL NEB QID, #300 ML 5 Refills 12/29/20 Potassium Chloride (Klor-Con 10) 10 Meq Tablet.er, 1 TAB PO DAILY for 30 Days, #30 TAB 0 Refills 12/29/20 Pregabalin (LYRICA) 75 Mg Capsule, 1 CAP PO BID, #60 CAP 1 Refill 12/29/20 Ipratropium [place] (IPRATROPIUM BROMIDE) 15 Ml [place], 2 SPRAYS NS BID 07/08/20 Metoprolol Succinate (METOPROLOL SUCCINATE ( XL )) 25 Mg Tab.er.24h, 1 TAB PO DAILY for CHF for 30 Days, #30 07/08/20 Pantoprazole Sodium (Pantoprazole Sodium) 40 Mg Tablet.dr, 1 TAB PO DAILY for GERD for 30 Days, #30 07/08/20 Gabapentin (GABAPENTIN ) 300 Mg Capsule, 300 MG PO DAILYWSUP for NEUROGENIC PAIN, CAP 06/30/19 Aspirin (ASPIRIN) 81 Mg Tab.chew, 81 MG PO DAILY for , TAB.CHEW 06/30/19 Lovastatin (LOVASTATIN) 40 Mg Tablet, 1 TAB PO DAILY, #90 TAB 3 Refills 12/14/14 NIGEL LEON MD Jan 19, 2021 11:53
--- NOTE | 2021-01-19 14:21 | NUR ---
This RN attempted to call report to [facility] at [phone]. Spoke with [place] nurse of R. She stated she, or another nurse would call this RN back in approx 10 minutes. Will await phone call. Addendum: 01/19/21 at 145 by STEVEN ARNOLD RN This RN gave report to BILLY [place] of [facility] at [phone].
--- NOTE | 2021-01-19 15:23 | NUR ---
Pt left unit at approx 1515 by wheelchair via transportation, accompanied by . Pt's IV removed without complication, VSS. Discharge paperwork sent with pt at time of discharge.
== END 2021-01-19 15:25 | DRG 329 ==
LOC: ER 10:52 → ED HOLD 15:47 → 6 SOUTH 19:51 → 1 WEST ICU 01-04 09:15 → 6 SOUTH 01-07 13:47
PROVIDERS: ADMIT Internal Medicine; ATTEND Internal Medicine
PROC: 30233N1 Transfusion of Nonautologous Red Blood Cells into Peripheral Vein, Percutaneous Approach (ICD-10-PCS; 2020-12-31)
PROC: 0FB00ZX Excision of Liver, Open Approach, Diagnostic (ICD-10-PCS; 2021-01-04)
PROC: 5A09357 Assistance with Respiratory Ventilation, Less than 24 Consecutive Hours, Continuous Positive Airway Pressure (ICD-10-PCS; 2021-01-04)
PROC: 0DTF0ZZ Resection of Right Large Intestine, Open Approach (ICD-10-PCS; principal; 2021-01-04 09:00)
PROC: 5A09357 Assistance with Respiratory Ventilation, Less than 24 Consecutive Hours, Continuous Positive Airway Pressure (ICD-10-PCS; 2021-01-05)
DX: C18.9 Malignant neoplasm of colon, unspecified (principal); I50.23 Acute on chronic systolic (congestive) heart failure; N17.0 Acute kidney failure with tubular necrosis; R18.8 Other ascites; D68.9 Coagulation defect, unspecified; J96.10 Chronic respiratory failure, unspecified whether with hypoxia or hypercapnia; I13.0 Hypertensive heart and chronic kidney disease with heart failure and stage 1 through stage 4 chronic kidney disease, or unspecified chronic kidney disease; I48.19 Other persistent atrial fibrillation; I42.9 Cardiomyopathy, unspecified; I82.612 Acute embolism and thrombosis of superficial veins of left upper extremity; I47.2 Ventricular tachycardia; C78.7 Secondary malignant neoplasm of liver and intrahepatic bile duct; C19 Malignant neoplasm of rectosigmoid junction; J44.1 Chronic obstructive pulmonary disease with (acute) exacerbation; W19.XXXA Unspecified fall, initial encounter; J44.9 Chronic obstructive pulmonary disease, unspecified; I25.10 Atherosclerotic heart disease of native coronary artery without angina pectoris; N18.9 Chronic kidney disease, unspecified; D64.9 Anemia, unspecified; E78.5 Hyperlipidemia, unspecified; R10.13 Epigastric pain; Z95.1 Presence of aortocoronary bypass graft; D50.0 Iron deficiency anemia secondary to blood loss (chronic); K21.9 Gastro-esophageal reflux disease without esophagitis; E66.9 Obesity, unspecified; Z68.32 Body mass index [BMI] 32.0-32.9, adult; R53.1 Weakness; R53.81 Other malaise; D63.8 Anemia in other chronic diseases classified elsewhere; B02.9 Zoster without complications; C18.3 Malignant neoplasm of hepatic flexure; E78.00 Pure hypercholesterolemia, unspecified; F32.9 Major depressive disorder, single episode, unspecified; G47.00 Insomnia, unspecified; G62.9 Polyneuropathy, unspecified; I25.5 Ischemic cardiomyopathy; K57.90 Diverticulosis of intestine, part unspecified, without perforation or abscess without bleeding; M19.90 Unspecified osteoarthritis, unspecified site; M54.5 Low back pain; Z20.822 Contact with and (suspected) exposure to COVID-19; K59.00 Constipation, unspecified; I49.9 Cardiac arrhythmia, unspecified; R13.10 Dysphagia, unspecified; Z82.49 Family history of ischemic heart disease and other diseases of the circulatory system; Z83.3 Family history of diabetes mellitus; Z85.038 Personal history of other malignant neoplasm of large intestine; Z85.46 Personal history of malignant neoplasm of prostate; Z87.891 Personal history of nicotine dependence; Z95.5 Presence of coronary angioplasty implant and graft; Z95.810 Presence of automatic (implantable) cardiac defibrillator
CPT/HCPCS: 36415; 36430; 36600; 71045; 71250; 74018; 74176; 74230; 78580; 80048; 80053; 80076; 81001; 82378; 82607; 82668; 82728; 82805; 83540; 83550; 83605; 83690; 83735; 83880; 84484; 84550; 85007; 85025; 85045; 85610; 85730; 86850; 86900; 86901; 86920; 87040; 87086; 88112; 88305; 88307; 88309; 88341; 88342; 93005; 93971; 94640; 94660; 94760; 96365; 96366; 96372; 99285; A4222; A4314; A4556; A9540; C1751; C9113; G0238; J0330; J0696; J0780; J1100; J1170; J1650; J1756; J1940; J2370; J2405; J2543; J2704; J3010; J3430; J3490; J7030; J7040; J7050; J7120; P9016; U0003; 92526-GN; 92610-GN; 92611-GN; 97110-GO; 97110-GP; 97168-GO; 97530-GO; 97530-GP; 97535-GO; G0378; J7626